=== PATIENT | female | born 2000 | race Caucasian/White ===

== ENCOUNTER 2021-11-21 17:39 | Emergency (ER) | payer BC, MEDICAID, SELFPAY ==
[2021-11-21 17:49] VITALS: BP 119/79; PULSE 79; RESP 16; TEMP 36.3; O2SAT 98; BMI 23.9
--- NOTE | 2021-11-21 18:52 | PC.NURSE ---
Spoke with GIAN [facility]ina cell [phone] and she will be having a local nurse name Elaina come to see pt
--- NOTE | 2021-11-21 21:45 | ED.NURSE ---
SPE[facility] nurse done with assessment. will give medications and d/c home.
[2021-11-21] MEDS: EMTRICITABINE/TENOFOVIR 200-300MG TABLET 1 TAB PO (21:48)
[2021-11-21] MEDS: RALTEGRAVIR POTASSIUM 400 MG TABLET PO (21:48)
[2021-11-21] MEDS: DOXYCYCLINE HYCLATE 100 MG CAPSULE PO (21:48)
[2021-11-21] MEDS: levonorgestreL 1.5 MG TABLET PO (21:48)
[2021-11-21] MEDS: ONDANSETRON ODT 4 MG TAB PO (21:49)
[2021-11-21] MEDS: metroNIDAZOLE 500 MG TABLET PO (21:49)
[2021-11-21 22:07] VITALS: BP 119/79; PULSE 79; RESP 16; TEMP 36.3
[2021-11-21] MEDS: cefTRIAXone 500 MG VIAL IM (22:10)
[2021-11-21] MEDS: LIDOCAINE 1% 5 ml (pf) 5 ML VIAL IM (22:10)
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
== END 2021-11-21 22:12 | disposition home or self-care (01) ==
PROVIDERS: Emergency Provider Family Medicine
DX: T74.21XA Adult sexual abuse, confirmed, initial encounter (principal)
CPT/HCPCS: 96372; 99281; 99284; 99285; 99291; A9270; J0696

== ENCOUNTER 2021-12-08 08:48 | Outpatient (CLI) | payer BC, MEDICAID, SELFPAY ==
--- OUTSIDE RECORDS SUMMARY | 2021-12-12 09:50 | XMS_ITS | Clinical Summary ---
:2000 Author Organization [place] Address [address] [place] [id number] Care Team Providers Name Role Phone Moisés Prater Primary Care Provider [phone] Allergies Active Allergy Reactions Severity Noted [...] from the original. Diagnosis 09/28/15 Follow up [facility] Endocrinology clinic [facility] Social History Tobacco Use Types Packs/Day Years [...] Advance Directives For more information, please contact: [phone] Latest Code Status on File Code Status Date Activated Date Inactivated Comments Full Code 08/16/2020 6:54 AM 08/20/2020 4:47 PM All basic an d advanced life-sustaining interventions are performed as addi ropriate Question Answer Comments Code status determined by: Other (please document) Care Teams Materials Tech Relationship Specialty Start Date End Date Moisés Prater PCP - General Family Practice 08/20/20 [id number] [place] [id number]
--- OUTSIDE RECORDS SUMMARY | 2021-12-12 09:50 | XMS_ITS | Encounter Summary ---
:2000 Author Organization [place] Address [address] [place] [address] Care Team Providers Name Role Phone Moisés Prater Primary Care Provider [phone] Encounter Details Date Type Department Care Team [...] on filedocumented in this encounter Care Teams Recovery Rn Relationship Specialty Start Date End Date Moisés Prater PCP - General Family Practice 08/20/[id number] [place] [address] [id number] documented as of this encounter
--- OUTSIDE RECORDS SUMMARY | 2021-12-12 09:51 | XMS_ITS | Encounter Summary ---
:2000 Author Organization [place] Address [address] [place] [address] Care Team Providers Name Role Phone Unavailable Primary Care Provider Unavailable Encounter Details Date Type Department Care Team Description 08/09/2020 Orders Only [employer] Shana Hernández Encounter for [facility] MD Lindsey preprocedure screening [address] [facility] laboratory testing for [place], [place] COVID-19 ( Primary Dx) [id number] [phone] Social History Tobacco Use Types Packs/Day Years Used Date Smoking Tobacco: Never Assessed Sex Assigned at Date Recorded Not on file documented as of this encounter Plan of Treatment Not on filedocumented as of this encounter Visit Diagnoses Diagnosis Encounter for preprocedure screening lab oratory testing for COVID-19 - Primary documented in this encounter
--- OUTSIDE RECORDS SUMMARY | 2021-12-12 09:51 | XMS_ITS | Clinical Summary ---
:2000 Author Organization [employer] Address [address] [address] Phone Care Team Providers Name Role Phone [...] Comments Blood Pressure 112/76 02/06/2017 10:04 AM MANAGER SUPPLIER Pulse 101 02/06/2017 10:04 AM MANAGER SUPPLIER Temperature 36.9 ??C (98.5 ??F) 02/06/2017 10:04 AM MANAGER SUPPLIER Respiratory Rate 20 02/06/2017 10:04 AM MANAGER SUPPLIER Oxygen Saturation 92% 02/06/2017 10:04 AM MANAGER SUPPLIER Inhaled Oxygen Concentration - - Weight 63.9 kg (140 lb 12.8 oz) 02/06/2017 10:04 AM MANAGER SUPPLIER Height 165.1 cm (5' 5) 02/06/2017 10:04 AM MANAGER SUPPLIER Body Mass Index 23.43 02/06/2017 10:04 AM MANAGER SUPPLIER Plan of Treatment Health Maintenance Due Date [...] Effective Phone Address Type Group ID Dates [facility] [id number] 08/30/2018-Pr [phone] [address] [facility] PRIME esent [phone] [place] [phone] [facility] [id number] 08/30/2018-Pr [phone] [address] [facility] PRIME esent [phone] [facility] [place] [phone] Guarantor Name Account Type Relation to Date of Phone Billing Patient Address TWILA BANKS Personal/Family Mother 1887 [address] ([address]) [place] [address] TWILA BANKS Behavioral Health Mother 10/08/[birth year]87 [phone] [address] [place] [address] Care Teams Older Worker Specialist Relationship Specialty Start Date End Date Elsewhere, Pcp PCP - General 02/06/17
--- OUTSIDE RECORDS SUMMARY | 2021-12-12 09:51 | XMS_ITS | Encounter Summary ---
:2000 Author Organization [place] Address [address] [place] [address] Care Team Providers Name Role Phone Unavailable Primary Care Provider Unavailable Encounter Details Date Type Department Care Team Description 05/26/2007 Office Visit-P INTERFACE P DEPT Jb Bell, PhD [address] [address] (Wo rk) Social History Tobacco Use Types Packs/Day Years Used Date Smoking Tobacco: Never Assessed Sex Assigned at Date Recorded Not on file documented as of this encounter Progress Notes Jb Bell - 05/26/2007 9:00 AM CDT Sales Donor Recruitment Representative: Jb Bell Status: Unsigned Encounter: 26 May 2007 Type: Peds Chart Note PEDIATRIC PSYCHOLOGY CONTACT RECORD RE: Nabila Serna MR#: [id number] : 2000 DOS: 05/26/2007 Clinician: Esther Colindres M.A. Corporate Aircraft Mechanic: Dr. Jb Bell Type of Activity (Total Time Spent in Hours): Report Writinmin Jb Bell - 05/26/2007 9:00 AM CDT Sales Donor Recruitment Representative: Jb Bell Status: Signed Encounter: 26 May [...] a hypothetical continuum of mental health-illness. DIAGNOSES: Washburn I Disruptive Behavior Disorder, Not Otherwise Specified Washburn II none Washburn III Washburn IV learning difficulties, Washburn V GAF current = 45 RECOMMENDATIONS: RECOMMENDATIONS: [...] [facility] It was a pleasure to work with Nabila and her caregivers. If you have any questions or concerns regarding this report, please feel free to contact us at . Jb Bell, Ph.D., Department of Pediatrics Cc: Electronically signed by:JB BELL PhD,MARIO Aug 17 2007 3:25PM OUTSIDE RIGGER Jb Bell - 05/26/2007 9:00 AM CDT Sales Donor Recruitment Representative: Jb Bell Status: Unsigned Encounter: 26 May 2007 Type: Peds Chart Note PEDIATRIC PSYCHOLOGY CONTACT RECORD RE: Nabila Serna MR#: [id number] : 2000 DOS: 05/26/2007 Clinician: Esther Colindres M.A. Corporate Aircraft Mechanic: Dr. Jb Bell Type of Activity [...]
--- OUTSIDE RECORDS SUMMARY | 2021-12-12 09:51 | XMS_ITS | Encounter Summary ---
:2000 Author Organization [employer] Address [address] [address] Phone Care Team Providers Name Role Phone Elsewhere, Pcp Primary Care Provider Unavailable Reason for Visit Reason Comments Immunizations Encounter Details Date Type Department Care Team Description 02/25/2017 Abstract [facility] HIS Abstract, Provider, Immunizations [address] [place], [place] [id number] Social History Tobacco Use Types Packs/Day Years [...] on filedocumented in this encounter Care Teams Foreign Policy Officer Relationship Specialty Start Date End Date Elsewhere, Pcp PCP - General 02/06/17 documented as of this encounter
--- OUTSIDE RECORDS SUMMARY | 2021-12-12 09:51 | XMS_ITS | Encounter Summary ---
:2000 Author Organization [facility] Address [address] [place] [address] Care Team Providers Name Role Phone Plamira Lim MD Primary Care Provider Reason for Visit Reason Comments Forms Encounter Details Date Type Department Care Team Description 08/08/2021 Telephone [facility] [address] MBBS Forms Endocrinology [address] [place] [address] [place], [place] [address] [phone] Social History Tobacco Use Types Packs/Day Years Used Date Smoking Tobacco: Former Cigarettes 0.3 1 Smokeless Tobacco: Never Alcohol Use Standard Drinks/Week Comments Yes 0 (1 standard drink = 0.6 oz pure alcoho l) on ocass Sex Assigned at Date Recorded Female 09/14/2020 7:23 AM CDT documented as of this encounter Nursing Notes Jin Brown - 08/12/2021 3:52 PM CDT Form completed and faxed to [phone] Jin Brown - 08/08/2021 11:00 AM CDT [facility] Order form placed in Dr. Maldonado's mailbox. documented in this encounter Plan of Treatment Not on filedocumented as of this encounter Visit Diagnoses Not on filedocumented in this encounter Care Teams Grinder Gear Relationship Specialty Start Date End Date Palmira Lim MD PCP - General 05/08/[address] [place] [address] documented as of this encounter
--- OUTSIDE RECORDS SUMMARY | 2021-12-12 09:51 | XMS_ITS | Encounter Summary ---
:2000 Author Organization [employer] Address [address] [address] Phone Care Team Providers Name Role Phone Elsewhere, Pcp Primary Care Provider Unavailable Reason for Visit Reason Comments Other port pt Encounter Details Date Type Department Care Team Description 02/06/2017 Office Visit [facility]-Isamar Maddox, En counter for routine PEDIATRICS child health [address] examination with KAYLYN LACY [address] KAYLYN LACY abnormal findings [phone] (Primary Dx) Social History Tobacco Use [...] Comments Blood Pressure 112/76 02/06/2017 10:04 AM EDUCATION TEACHER Pulse 101 02/06/2017 10:04 AM EDUCATION TEACHER Temperature 36.9 ??C (98.5 ??F) 02/06/2017 10:04 AM EDUCATION TEACHER Respiratory Rate 20 02/06/2017 10:04 AM EDUCATION TEACHER Oxygen Saturation 92% 02/06/2017 10:04 AM EDUCATION TEACHER Inhaled Oxygen Concentration - - Weight 63.9 kg (140 lb 12.8 oz) 02/06/2017 10:04 AM EDUCATION TEACHER Height 165.1 cm (5' 5) 02/06/2017 10:04 AM EDUCATION TEACHER Body Mass Index 23.43 02/06/2017 10:04 AM EDUCATION TEACHER Body Mass Index Percentile 73.99 % 02/06/2017 10:04 AM EDUCATION TEACHER Growth Chart: [facility] (Girls, 2-20 Years) documented in this encounter [...] on contacts list): . Next Visit: The [employer] [employer] recommends a routine checkup every year. ATION TEACHER documented in this encounter Progress Notes Isamar [...] List: Diabetes mellitus, insulin dependent (IDDM), uncontrolled (HCC)[756651] Comment: Diagnosed August 2015. No FH of diabetes. Insulin overdose, intentional self-harm, subsequent encounter[5725827] Suicidal behavior[516022] Adjustment disorder with depressed mood[309.0.ICD-9-CM] Parent-child relational problem[874241] ADHD (attention deficit hyperactivity disorder), combined type[289257] Problem list was reviewed and updated as [...] Social Concerns: none, has close friends Activities/interests: [employer]ust[employer] PAST HISTORY: Past Medical History: Diagnosis [...] (Z= 0.76) based on CDC 2-20 Years [id number] data using vitals from 02/06/2017. Height for age: 63 %ile (Z= 0.32) based on CDC 2-20 Years [id number] data using vitals from 02/06/2017. 74 %ile [...] diet pills Recommend adolescent visit every year. ATION TEACHER documented in this encounter Plan of Treatment Not on filedocumented as of this encounter Visit Diagnoses Diagnosis Encounter for routine child health exami nation with abnormal findings - Primary Routine or child health check documented in this encounter Care Teams Packing And Final Assembly Supervisor Relationship Specialty Start Date End Date Elsewhere, Pcp PCP - General 02/06/17 documented as of this encounter
--- OUTSIDE RECORDS SUMMARY | 2021-12-12 09:51 | XMS_ITS | Encounter Summary ---
:2000 Author Organization [facility] Address [address] [place] [address] Care Team Providers Name Role Phone Palmira Lim MD Primary Care Provider Encounter Details Date Type Department Care Team Description 05/14/2021 Notes/Orders [facility] [address] Lilian Maldonado [facility] MKAIN hypothyroidism (Primary [address] [facility] [address] [facility] [place] [place] [id number] Social History Tobacco Use Types Packs/Day Years [...] hypothyroidism documented in this encounter Care Teams Erp Specialist Relationship Specialty Start Date End Date Palmira Lim MD PCP - General 05/08/[address] [place] [address] documented as of this encounter
--- OUTSIDE RECORDS SUMMARY | 2021-12-12 09:51 | XMS_ITS | Encounter Summary ---
:1999 Author Organization [place] Address [address] [place] [address] Care Team Providers Name Role Phone Unavailable Primary Care Provider Unavailable Encounter Details Date Type Department Care Team Description 07/28/2020 Records - [facility] CONVERSION Provider, Histor ical Social History Tobacco [...]
--- OUTSIDE RECORDS SUMMARY | 2021-12-12 09:51 | XMS_ITS | Encounter Summary ---
:1999 Author Organization [employer] Address [address] [place] [address] Care Team Providers Name Role Phone Palmira Lim MD Primary Care Provider Encounter Details Date Type Department Care Team Description 05/13/2021 Lab Visit [facility] 3850 Type 1 di abetes mellitus without complication (HRC); Laboratory Subclinical hypothyroidism [address] [place] [address] Social History Tobacco Use Types [...] athologist Signature Albumin/Creati 19 <30 mg/g 05/13/2021 [facility] nine Ratio, 5:08 PM CDT 3850 LABORATORY Urine, Random Albumin, 23.5 mg/L 05/13/2021 [facility] Urine, Random 5:08 PM CDT 3850 LABORATOR Y Creatinine, 123 >20 mg/dL 05/13/2021 [facility] Urine, Random mg/dL 5:08 PM CDT 3850 LABOR[address] Y Specimen Anatomical Collection Method Collection Time Receive d Time (Source) Location / / Volume Laterality Urine Non-blood 05/13/2021 3:33 PM 3:33 Collection / CDT PM CDT Unknown Lilian Fenton Joel [facility]_1 Performing Organization Address City/[facility]/ZIP Code Phon e Number [facility] [address] [place], [place] [address] [phone] Creatinine / GFR (05/13/2021 3:26 PM CDT) athologist Signature Creatinine 0.73 0.55 - 05/13/2021 [facility] 1.02 mg/dL 5:24 PM CDT 3850 LABORATORY GFR, Estimated >60 >60 05/13/2021 [facility] mL/min/1.7 5:24 PM CDT 3850 LABORATORY 3m2 Specimen Anatomical Collection Method / Collection Time Recei andrade Time (Source) Location / Volume Laterality Blood Venipuncture / 05/13/2021 3:26 05/13/2021 3:26 Unknown PM CDT PM CDT Lilian Victornestor [facility] Performing Organization Address City/[facility]/ZIP Code Phon e Number [facility] [address] [place], [place] [phone] [phone] (ABNORMAL) TSH (05/13/2021 3:26 PM CDT) [facility] gist Method Time Signature TSH, Sensitive 123.73 (H) 0.30 - 05/13/2021 [facility] 4.50 8:00 PM CDT LABORATORY uIU/mL Specimen Anatomical Collection Method / Collection Time Recei andrade Time (Source) Location / Volume Laterality Blood Venipuncture / 05/13/2021 3:26 05/13/2021 3:26 Unknown PM CDT PM CDT Lilian [facility] Performing Organization Address City/State/ZIP Code Phon e Number [facility] [address] [place] [address] documented in this encounter Visit Diagnoses Diagnosis Type 1 diabetes mellitus without complic ation (HRC) Type I (juvenile type) diabetes mellitus without mention of complication, not stated as uncontrolled Subclinical hypothyroidism Other specified acquired hypothyroidism documented in this encounter Care Teams Plug Machine Operator Relationship Specialty Start Date End Date Palmira Lim MD PCP - General 05/08/06 [address], [place] [address] documented as of this encounter
--- OUTSIDE RECORDS SUMMARY | 2021-12-12 09:51 | XMS_ITS | Encounter Summary ---
:1999 Author Organization [employer] Address [address] [place] [address] Care Team Providers Name Role Phone Palmira Lim MD Primary Care Provider Reason for Visit Reason Comments Diabetes Encounter Details Date Type Department Care Team Description 08/07/2021 Office Visit Lilian Jamil Type 1 diab etes mellitus without complication (HRC) (Primary Dx); Endocrinology M, KAIN Subclinical hypothyroidism; [address] Uncontrolled type 1 diabetes mellitus with hyperglycemia (HRC) [place] [address] [address] [phone] [place] [address] Social History Tobacco Use Types [...] Maldonado MBBS - 08/07/2021 3:15 PM CDT [facility] Department of Endocrinology, Diabetes and [...] Restart levothyroxine 50 mcg daily. KAIN Bruce Hearing Stenographer Shaji Villatoro - 08/07/2021 3:15 PM CDT [...] (HRC) documented in this encounter Care Teams Mainframe Analyst Relationship Specialty Start Date End Date Palmira Lim MD PCP - General 05/08/[address] [place] [address] documented as of this encounter
--- OUTSIDE RECORDS SUMMARY | 2021-12-12 09:51 | XMS_ITS | Encounter Summary ---
:1999 Author Organization [employer] Address [address] [address] Phone Care Team Providers Name Role Phone Elsewhere, Pcp Primary Care Provider Unavailable Reason for Visit Reason Comments External Lab Results Encounter Details Date Type Department Care Team Description 02/25/2017 Abstract [facility] HIS Abstract, Provider, External Lab Results [address] [facility] [place] [address] Social History Tobacco Use Types [...] - OUTSIDE 10.00 [facility] Comment: (see [facility] record s scanned 12/16/2016) EXTERNAL RBC 4.81 [...] filedocumented in this encounter Care Teams Director Of Security Relationship Specialty Start Date End Date Elsewhere, Pcp PCP - General 02/06/17 documented as of this encounter
--- OUTSIDE RECORDS SUMMARY | 2021-12-12 09:51 | XMS_ITS | Clinical Summary ---
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 Overview: Hospitalized in [place] in [facility] Conflict at home Has lived in jail Consideration to moving to [facility] = for children with type 1 diabetes [...] 160 cm (5' 3) 03/09/2020 9:45 PM TOOL COORDINATOR Body Mass Index - - Plan of Treatment Upcoming Encounters Date Type Specialty Care Team Description 12/17/2021 Office Visit Tammi Lyon MD [address] [place] [address] (Wo rk) Health Maintenance Due Date Last Done Comments [...] Addre ss Type Group BEBE SPENCE MA [id number] 2020-Present [address] [place] [address] Advance Directives Latest Code Status on File Code Status Date Activated Date Inactivated Comments Full Code 09/27/2020 11:16 PM 09/29/2020 12:44 PM Code Status Discussion: Not Discussed Full Code 03/26/2016 6:32 PM 04/10/2016 8:09 PM Care Teams Shoe Puller Relationship Specialty Start Date End Date Pcp, No PCP - General 07/09/17 .
--- OUTSIDE RECORDS SUMMARY | 2021-12-12 09:51 | XMS_ITS | Encounter Summary ---
:2000 Author Organization [facility] Address [address] [place] [address] Care Team Providers Name Role Phone Moisés Prater Primary Care Provider [phone] Reason for Visit Reason Comments Rule out rupture of membranes Auth/Cert Specialty Diagnoses / Procedures Referred By Contact Refer red To Contact vocational ed instructor Diagnoses Leakage, amniotic fluid Leakage, amniotic fluid Rh [address] [place], [place] [address] Phone: Fax: Referral ID Status Reason Start Date Expiration Date Visits Requ ested Visits Authorized [id number] 1 1 Encounter Details Date Type Department Care Team Description 08/15/2020 - Hospital Encounter [facility] Kasia Mehta MD [place] [address] [place], [place] [address] (spontaneous vaginal delivery) (Prim jean-paul Dx); 08/20/2020 [facility] Renea Bustamante MD [place] [facility] [address] [facility] [address] [place], [place] [id number] Pre-eclampsia, severe, delivered; [address] Bessy Good MD [place] [address] [id number] Anemia due to blood loss, acute; Blvd Type 1 diabetes mellitus wit hout complication (H) [place] [address] Social History Tobacco Use Types [...] Patel DO - 08/19/2020 10:30 AM CDT [facility] Discharge Summary Bessy Serna Age: [age] year old Date of : 2000 Date of Admission: 08/15/2020 Date of Discharge: 08/20/2020 Admitting Physician: Kasia Mehta MD Discharge Physician: Pratibha Patel DO Admit [...] severe features - Large for gestational age infant - Hypothyroidism - [...] delivery of the body at 0801, male infant. Within seconds after delivery, in-house provider Dr. [...] Medications: Daphne Bessy Tin Home Medication Instructions QUAN:[id number] Printed on:08/20/20 1843 Medication Information acetaminophen (TYLENOL) 325 MG tablet [...] documented in this encounter Discharge Instructions Discharge Terri Chau RN - 08/20/2020 2:01 PM CDT Vaginal [...] Mills DO - 08/20/2020 10:43 AM CDT [facility] Hospitalist Progress Note Name: Bessy Serna [...] past 24 hour(s)). Diony Mills DO MPH [facility] Hospitalist [address] [place] [address] 08/20/2020 Pratibha Patel DO - 08/20/2020 7:49 AM CDT [facility] OB Note S: Bessy Serna feels tired this morning. Was able to sleep last night. Pain control adequate. Lochia minimal. Voiding. Breast feeding and pumping for baby in the NICU. Mood Good. BP overnight [id number]. Labetalol was increased to 400mg BID last [...] the afternoon depending on BP control on [id number] BID and procardia XL 90mg daily. 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 08/19/20 Lashay Bowen MD - 08/19/2020 9:03 AM CDT [facility] Hospitalist Progress Note Name: Bessy Serna Provider: [...] pressure is reasonably controlled - care per [facility] Hypertension -Received labetalol, Procardia XL and magnesium [...] Bowen MD - 08/18/2020 3:42 PM CDT [facility] Hospitalist Progress Note Name: Bessy Serna Provider: [...] pressure is reasonably controlled - care per [facility] Hypertension -Received labetalol, Procardia XL and magnesium [...] 4, depending on BPs Mechelle Meehan MD [facility] August 18, 2020 Lashay Bowen MD - 08/17/2020 9:49 AM CDT [facility] Hospitalist Progress Note Name: Bessy Serna Provider: [...] pressure is reasonably controlled - care per [facility] Hypertension -Received labetalol, Procardia XL and magnesium [...] visit (from the past 24 hour(s)). Kasia Mehta MD - 08/17/2020 9:36 AM CDT [facility] QUE[facility]ED[facility] PPD# 1 Pt doing well, states she has visited baby and was told her baby has an arm fracture but overall doing well. Ambulating, voiding, tolerating PO. Decreased lochia. Pain controlled. Breast pumping and coping well with infant when visiting. Vitals: 08/17/20 0320 08/17/20 0526 [...] -Plan; continue routine post- care. Dr. Narda Mehta [phone] 08/17/2020 9:36 AM Bessy Valencia MD - 08/16/2020 8:47 AM CDT Hypothyroid: - 50 mcg daily per Endo (PN on 08/15/2020) T1DM: - Lantus 30 units at bedtime - Novolog 1 unit/5gram carb coverage with meals - High resistant sliding scale Orders above placed, hospitalist consult placed. Bessy Stokes MD Pager: [phone] August 16, 2020, 8:48 AM Kasai Mehta MD - 08/16/2020 6:58 AM CDT [facility] QUE[facility] PROGRESS NOTE S. Pt states she is doing well overall. un medicated and feeling intense pressure and urge to push. +FM BP (!) 153/93 Temp 97.9 ??F (36.6 ??C) (Oral) Resp 18 SpO2 98% [place] ctxs q 4 min FHT 130 bpm, [...] FHT Cat I - anticipate Dr. Narda Mehta [phone] documented in this encounter H&P Notes Bessy Valencia MD - 08/16/2020 6:55 AM CDT [facility] Labor and Delivery History and Physical Bessy [...] hrs: BP Temp Temp src Resp SpO2 08/16/20 0644 (!) 153/93 -- -- 18 98 % [...] (!) 154/90 -- -- -- 96 % 08/16/20 0437 -- -- -- -- 95 % 08/16/20 0434 (!) 176/106 -- -- -- -- 08/16/20 0432 -- -- -- -- 95 % 08/16/20 0422 -- -- -- -- 95 % 08/16/207 (!) 172/89 -- -- -- 95 % 08/16/20411 -- -- -- 16 94 % 08/16/209 -- -- -- -- 94 % 08/16/20 [...] without SF since 34 weeks - S/p labetalol - Currently on Procardia 30 mg [...] - Contraception: IUD Bessy Stokes MD Pager: [phone] August 16, 2020 documented in this encounter Consult Notes Kan Davenport LSW - 08/17/2020 10:20 AM CDTAssociated Order(s): SOCIAL WORK IP CONSULT [facility] MATERNAL CHILD HEALTH INITIAL NICU PSYCHOSOCIAL ASSESSMENT DATA: Reason for Social Work Consult: 36.6 W male in NICU with shoulder dystocia, Primip IDM. Presenting Information: SW met with Bessy who is partnered to Ty, they reside together in [place] with Ty's brother, sister and her SO and their baby. Janusz is their first child together and they are prepared for him at home and plan to apply for WIC. Bessy declines PHN referral at this time. Social Support: Strong supports. Bessy's mother lives 10 minutes away and Ty's mother is visiting from [place] Employment: Bessy will take 3 months off work and is uncertain if she will return or not. Ty has 2weeks off work. [place]: [place] Mental Health History: Bessy scored Zero on [...] a CPS report will be made to [facility]. INTERVENTION: ?? MONIKA completed chart review and collaborated with the multidisciplinary team. ?? Psychosocial Assessment ?? Introduction to Maternal Child Health Director Of Cardiac Cath Lab role and scope of practice ?? Discussed NICU experience and gave NICU welcome card ?? Reviewed Hospital and Community Resources ?? SW gave list of [facility] resources, how to apply for WIC [...] to access services. Bessy was unaware of [facility] for [facility] etc. Assessment of Support System: Stable and involved. Level of engagement with SW: Engaged and appropriate. Able to seek out SW when needs arise. Family???s understanding of baby???s medical situation: Appropriate understanding, he has a broken arm and working on sugars. Family and parent/ interactions: FOB sleeping at bedside, baby will [...] team. Signature Kan VILLARREAL Case Management Inpatient Director Of Cardiac Cath Lab Maternal Child and ED [facility] [phone] Lashay Bowen MD - 08/16/2020 3:05 PM [...] pressure is reasonably controlled - care per [facility] Diabetes mellitus type 1 -Insulin coverage during [...] ??C), temperature source Oral, resp. rate 16, ukzaue484.1 kg (225 lb), SpO2 98 %, unknown [...] hours overnight. Plan of Care - Alberta Lino, ANDRE - 08/19/2020 4:30 PM CDT BP elevated [...] this am 144/80 and 150/89, seen by MD and Labetalol increased to 300mg BID. Denies [...] infant. SO atbedside and supportive. Pumping for in the NICU. Pt to call out [...] she will order breakfast soon. Plan of Care - Christelle Mckeon RN - 08/18/2020 5:08 [...] delivery and immediately assumed cares of the infant. Baby transferred to NICU with fransico team [...] in 1 hour. Bessy Serna transferred to [facility] via wheelchair at 1030. Bessy stated [...] and is stable. L&D Delivery Note - Kimberly, Bessy Alcantara MD - 08/16/2020 8:59 AM CDT Bessy [...] delivery of the body at 0801, male infant. Within seconds after delivery, in-house providerDr. Goodwin arrived. The cord was immediately clamped and the was brought to the warmer forNICU resuscitation. [...] standard fashion using a 3-0 Vicryl suture. [id number]. Rectal exam at the end of the procedure did not reveal any sutures, good rectal tone. Of note, the patient was made aware of the shoulder dystocia, severity and likely humerus fracture. She was also made aware of likely follow-up. Bessy Stokes MD Pager: [phone] August 16, 2020, 9:01 AM Delivery Summary Bessy Serna Age: [age] year old Date of : 2000 Con Serna-Bessy [[id number]] Labor Event Times Labor onset date: 08/16/20 [...] Pattern 1:1 continuous labor support provided by?: shooter helper/Placenta Date and Time Delivery Date: 08/16/20 Delivery Time: 8:01 AM Placenta Date/Time: 08/16/2020 8:10 AM Oxytocin given at the time of delivery: after delivery of placenta Delivering clinician: Bessy Valencia MD Other personnel present at delivery: Provider Role Lizbeth Avila, shooter helper Assist Mis Ndiaye RN Delivery Nurse Sonja Winston RN Delivery Assist Vaginal Counts Initial count performed by 2 team members: Two Team Members Dr. Kimberly Martins RN [place] Suture [place] Sponges (RETIRED) Instruments Initial counts 2 5 [...] tone: Respiratory effort: Total: Apgars assigned by: JOSELIN RN ADMIT Cord Vessels: 3 Vessels Cord Complications: None Cord Blood Disposition: Lab Delayed cord clamping?: No Stem cell collection?: No [place] Measurements Weight: 9 lb 11.2 oz Head circumference: 34 cm Labor Events and Shoulder Dystocia Tracing Prior to Delivery: Category 2 Shoulder dystocia present?: Pos Time body delivered: 0801 Time head delivered: 0759 Help called by: Bessy Stokes Time recognized: [...] Bessy Stokes Delivery (Maternal) (Provider to Complete) ([id number]) Episiotomy: None Perineal lacerations: 2nd Repaired?: Yes Vaginal laceration?: Yes Repaired?: Yes Est. blood loss (mL): 500 Repair suture: 3-0 Vicryl, 2-0 Vicryl Genital tract inspection done: Pos Blood Loss Mother: DaphneBessy gomez #[id number] Start of Mother's Information IO Blood Loss 08/16/20 0330 - 08/16/20 0901 EBL (mL) Hospital Encounter 500 mL Total 500 mL End of Mother's Information Mother: Bessy Serna #[id number] Delivery - Provider to Complete ([id number]) Delivering clinician: Bessy Valencia MD Attempted Delivery [...] 08/16/20 0650 Provider Notification Provider Name/Title Dr. mehta Method of Notification At Bedside Request Evaluate in Person Notification Reason SVE MD at bedside. SVE 10. Pt may begin pushing. Verbal orders received for Pitocin augmentation as contractions have spaced. Provider Notification - Michelle Monae RN - 08/16/2020 6:25 AM CDT 08/16/20 0625 Provider Notification Provider Name/Title Dr. Mehta Method of Notification Phone Request Evaluate in Person MD updated. SVE 9.5/100/2, Pt pushing involuntarily. RN requesting MD come to the hospital for delivery. Provider Notification - Michelle Monae RN - 08/16/2020 6:07 AM CDT 08/16/20 0607 Provider Notification Provider Name/Title Dr. Mehta Method of Notification Phone Request Evaluate - Remote Notification Reason Maternal Vital Sign Change MD updated. Two severe range BPs obtained, Pt received Procardia at 0543. MD states to proceed with 80 mg Labetalol. Provider Notification - Lindsey Valle RN - 08/16/2020 5:55 AM CDT 08/16/20 0555 Provider Notification Provider Name/Title Dr. Mehta Method of Notification Phone Request Evaluate in [...] she is 10 minutes away. Updated primary ANDRE Monae. Provider Notification - Michelle Monae RN - 08/16/2020 5:27 AM CDT 08/16/20 0527 Provider Notification Provider Name/Title Dr. Mehta Method of Notification Electronic Page Request Evaluate - Remote Notification Reason SVE;Status Update Text page sent to MD. SVE 7/90/0. BG 115, starting IV insulin per active labor protocol. BP stable. Provider Notification - Michelle Monae RN - 08/16/2020 4:24 AM CDT 08/16/20 0424 Provider Notification Provider Name/Title Dr. Mehta Method of Notification Phone Request Evaluate - [...] 08/16/20 0219 Provider Notification Provider Name/Title Dr. Mehta Method of Notification Phone Request Evaluate - Remote Notification Reason Maternal Vital Sign Change;Status Update updated. Severe range BP x2 treated with [...] 08/16/20 0019 Provider Notification Provider Name/Title Dr. Mehta Method of Notification Phone Request Evaluate - Remote Notification Reason Maternal Vital Sign Change updated due to severe range BP, 177/104. [...] and fluid noted- ROM plus sent. Dr. Mehta updated at 2114 and Intrapartum and Diabetic [...] 8:23 AM 4:04 CDT PM CDT Kasia Mehta MD LAB - BEAKER POCT Performing Organization Address City/State/ZIP Code Phon e Number FV POINT OF CARE TEST, GLUCOSE POINT OF CARE TEST, GLUCOSE Platelet count (08/20/2020 7:06 AM CDT) athologist Signature Platelet Count 357 150 - 450 08/20/2020 [place] 10e9/L 7:50 AM [facility] Specimen Anatomical Collection Method Collection Time Receive d Time (Source) Location / / Volume Laterality Blood 08/20/2020 7:06 AM 7:07 CDT AM CDT Shana Hernández MD LAB - BLOOD ORDERABLES Performing Organization Address City/[facility] Phon e Number [place] [address] [phone] Creatinine (08/20/2020 7:06 AM CDT) athologist Signature Creatinine 0.63 0.52 - 1.04 08/20/2020 [place] mg/dL 8:13 AM [facility] GFR Estimate >90 >60 08/20/2020 [place] mL/min/{1.7 8:13 AM [facility] 3_m2} [facility] Comment: Non GFR Calc Starting 02/16/2018, serum creatinine ba sed estimated GFR (eGFR) will be calculated using the Chronic Kidney Dise [facility] Epidemiology Collaboration (CKD-EPI) equation. GFR Estimate If >90 >60 mL/min/{1.73_m2} 08/20/2020 8: 13 AM [facility] Comment: GFR Calc Starting 02/16/2018, serum creatinine ba sed estimated GFR (eGFR) will be calculated using the Chronic Kidney Dise [facility] Epidemiology Collaboration (CKD-EPI) equation. Specimen Anatomical Collection Method Collection Time Receive d Time (Source) Location / / Volume Laterality Blood 08/20/2020 7:06 AM 7:07 CDT AM CDT Shana Hernández MD LAB - BLOOD ORDERABLES Performing Organization Address City/State/ZIP Code Phon e Jemma [facility] [address], [place] [address] [facility] [address] [place], [place] [address], [facility] [phone] AST (08/20/2020 7:06 AM CDT) P athologist Signature AST 44 0 - 45 U/L 08/20/2020 [facility] 8:13 AM CDT HOSPITAL Specimen Anatomical Collection Method Collection Time Receive d Time (Source) Location / / Volume Laterality Blood 08/20/2020 7:06 AM 7:07 CDT AM CDT Shana Hernández MD LAB - BLOOD ORDERABLES Performing Organization Address [facility] Code [facility] e Jemma [facility] [address], [place] [address] [facility] [address] [place], [place] [address], [facility] [phone] ALT (08/20/2020 7:06 AM CDT) athologist Signature ALT 33 0 - 50 U/L 08/20/2020 [facility] 8:13 AM CDT HOSPITAL Specimen Anatomical Collection Method Collection Time Receive d Time (Source) Location / / Volume Laterality Blood 08/20/2020 7:06 AM 7:07 CDT AM CDT Shana Hernández MD LAB - BLOOD ORDERABLES Performing Organization Address City/[facility]/ZIP Code Phon e [facility] [address], [place] [address] [facility] [address] [place], [place] [address], [facility] [phone] Glucose by meter (08/20/2020 2:04 AM CDT) P athologist Signature Glucose 84 70 - 99 08/20/2020 POINT OF CARE mg/dL 2:11 AM CDT TEST, GLUCOSE Specimen Anatomical Collection Method Collection Time Receive d Time (Source) Location / / Volume Laterality 08/20/2020 2:04 AM 1 2:11 CDT AM CDT Kasia Mehta MD LAB - NGUYỄN POCT Performing Organization Address [facility] Code Phon e Number FV POINT OF [...] 08/19/2020 PM CDT 10:07 PM CDT Kasia Mehta MD LAB - NGUYỄN POCT Performing Organization Address [facility] Phon e Number FV POINT OF [...] IRIZARRY - NGUYỄN POCT Performing Organization Address [facility] Code Phon e Number FV POINT OF [...] PM 1 2:12 CDT PM CDT Kasia IRIZARRY - BEAKER POCT Performing Organization Address City/State/ZIP [...] 9:35 AM 9:42 CDT AM CDT Kasia Mehta MD LAB - [facility] POCT Performing Organization Address City/State/ZIP Code Phon e Number FV POINT OF CARE TEST, GLUCOSE POINT OF CARE TEST, GLUCOSE (ABNORMAL) CBC with platelets (08/19/2020 7:02 AM CDT) Analysis Performed At Patho logist Time Signature WBC 12.7 (H) 4.0 - 11.0 08/19/2020 [facility] 10e9/L 7:11 AM [facility] RBC Count 3.20 (L) 3.8 - 5.2 08/19/2020 [facility] 10e12/L 7:11 AM [facility] Hemoglobin 8.4 (L) 11.7 - 08/19/2020 [facility] 15.7 g/dL 7:11 AM [facility] Hematocrit 26.7 (L) 35.0 - 08/19/2020 [facility] 47.0 % 7:11 AM [facility] MCV 83 78 - 100 08/19/2020 [facility] fl 7:11 AM [facility] MCH 26.3 (L) 26.5 - 08/19/2020 [facility] 33.0 pg 7:11 AM [facility] MCHC 31.5 31.5 - 08/19/2020 [facility] 36.5 g/dL 7:11 AM [facility] RDW 16.1 (H) 10.0 - 08/19/2020 [facility] 15.0 % 7:11 AM [facility] Platelet Count 275 150 - 450 08/19/2020 [facility] 10e9/L 7:11 AM [facility] Specimen Anatomical Collection Method Collection Time Receive d Time (Source) Location / / Volume Laterality Blood 08/19/2020 7:02 AM 1 7:03 CDT AM CDT Lashay Bowen MD LAB - BLOOD ORDERABLES Performing Organization Address City/State/ZIP Code Phon e Number M [facility] [address], [place] [address] [facility] [address] [place], [place] [address] [phone] (ABNORMAL) Glucose by meter (08/19/2020 2:01 AM CDT) P athologist Signature Glucose 197 (H) 70 - 99 08/19/2020 POINT OF CARE mg/dL 2:07 AM CDT TEST, GLUCOSE Comment: Dr/RN Notified Specimen Anatomical Collection Method Collection Time Receive d Time (Source) Location / / Volume Laterality 08/19/2020 2:01 AM 1 2:07 CDT AM CDT Kasia IRIZARRY - [employer] POCT Performing Organization Address City/[facility]/ZIP Code Phon e Number FV POINT OF [...] 9:55 PM CDT 10:01 PM CDT Kasia Mehta MD LAB - BEMELISSA POCT Performing Organization [...] PM 1 6:49 CDT PM CDT Kasia Mehta MD LAB - BEMELISSA POCT Performing Organization Address City/[facility]/ZIP Code Phon e Number FV POINT OF [...] 08/18/2020 PM CDT 12:53 PM CDT Kasia IRIZARRY - NGUYỄN POCT Performing Organization Address [facility] Phon e Number FV POINT OF [...] IRIZARRY - NGUYỄN POCT Performing Organization Address [facility] Phon e Number FV POINT OF CARE TEST, GLUCOSE POINT OF CARE TEST, GLUCOSE (ABNORMAL) CBC with platelets (08/18/2020 6:44 AM CDT) Analysis Performed At Patho logist Time Signature WBC 16.0 (H) 4.0 - 11.0 08/18/2020 [facility] 10e9/L 7:08 AM T [facility] RBC Count 3.25 (L) 3.8 - 5.2 08/18/2020 [facility] 10e12/L 7:08 AM T [facility] Hemoglobin 8.6 (L) 11.7 - 08/18/2020 [facility] 15.7 g/dL 7:08 AM [facility] Hematocrit 27.1 (L) 35.0 - 08/18/2020 [facility] 47.0 % 7:08 AM [facility] MCV 83 78 - 100 08/18/2020 [place] fl 7:08 AM [facility] MCH 26.5 26.5 - 08/18/2020 [facility] 33.0 pg 7:08 AM [facility] MCHC 31.7 31.5 - 08/18/2020 [facility] 36.5 g/dL 7:08 AM [facility] RDW 15.9 (H) 10.0 - 08/18/2020 [facility] 15.0 % 7:08 AM [facility] Platelet Count 266 150 - 450 08/18/2020 [facility] 10e9/L 7:08 AM [facility] Specimen Anatomical Collection Method Collection Time Receive d Time (Source) Location / / Volume Laterality Blood 08/18/2020 6:44 AM 1 6:45 CDT AM CDT Lashay Bowen MD LAB - BLOOD ORDERABLES Performing Organization Address City/State/ZIP Code Phon e Number M [facility] [address] [place] [address] [facility] [address] [phone] (ABNORMAL) Glucose by meter (08/18/2020 2:12 AM CDT) athologist Signature Glucose 35 (LL) 70 - 99 08/18/2020 POINT OF CARE mg/dL 2:19 AM CDT TEST, GLUCOSE Comment: Dr/RN Notified Specimen Anatomical Collection Method Collection Time Receive d Time (Source) Location / / Volume Laterality 08/18/2020 2:12 AM 1 2:19 CDT AM CDT Kasia Mehta MD LAB - BEAKER POCT Performing Organization Address City/State/ZIP Code Phon e Number FV POINT OF CARE TEST, GLUCOSE POINT OF CARE TEST, GLUCOSE (ABNORMAL) Glucose by meter (08/17/2020 10:03 PM CDT) P athologist Signature Glucose 101 (H) 70 - 99 08/17/2020 POINT OF CARE mg/dL 10:10 PM CDT TEST, GLUCOSE Specimen Anatomical Collection Method Collection Time Receive d Time (Source) Location / / Volume Laterality 08/17/2020 10:03 08/17/2020 PM CDT 10:10 PM CDT Kasia Mehta MD LAB - BEMELISSA POCT Performing Organization Address City/State/ZIP Code Phon e Number FV POINT OF CARE TEST, GLUCOSE POINT OF CARE TEST, GLUCOSE (ABNORMAL) Glucose by meter (08/17/2020 6:55 PM CDT) P athologist Signature Glucose 137 (H) 70 - 99 08/17/2020 POINT OF CARE mg/dL 7:02 PM CDT TEST, GLUCOSE Specimen Anatomical Collection Method Collection Time Receive d Time (Source) Location / / Volume Laterality 08/17/2020 6:55 PM 7:02 CDT PM CDT Kasia Mehta MD LAB - BEMELISSA POCT Performing Organization Address City/[facility]/ZIP Code Phon e Number FV POINT OF CARE TEST, GLUCOSE POINT OF CARE TEST, GLUCOSE (ABNORMAL) Glucose by meter (08/17/2020 1:38 PM CDT) P athologist Signature Glucose 107 (H) 70 - 99 08/17/2020 POINT OF CARE mg/dL 1:45 PM CDT TEST, GLUCOSE Specimen Anatomical Collection Method Collection Time Receive d Time (Source) Location / / Volume Laterality 08/17/2020 1:38 PM 1 1:45 CDT PM CDT Kasia Mehta MD LAB - BEMELISSA POCT Performing Organization Address City/State/ZIP Code Phon e Number FV POINT OF CARE TEST, GLUCOSE POINT OF CARE TEST, GLUCOSE Glucose by meter (08/17/2020 1:03 PM CDT) P athologist Signature Glucose 85 70 - 99 08/17/2020 POINT OF CARE mg/dL 1:09 PM CDT TEST, GLUCOSE Specimen Anatomical Collection Method Collection Time Receive d Time (Source) Location / / Volume Laterality 08/17/2020 1:03 PM 1 1:09 CDT PM CDT Kasia Mehta MD LAB - BEAKER POCT Performing Organization [...] 08/17/2020 PM CDT 12:54 PM CDT Kasia Mehta MD LAB - BEAKER POCT Performing Organization Address City/[facility]/ZIP Code Phon e Number FV POINT OF [...] 08/17/2020 PM CDT 12:29 PM CDT Kasia Mehta MD LAB - BEAKER POCT Performing Organization Address City/[facility]/ZIP Code Phon e Number FV POINT OF CARE TEST, GLUCOSE POINT OF CARE TEST, GLUCOSE (ABNORMAL) Magnesium (08/17/2020 8:01 AM CDT) P athologist Signature Magnesium 5.8 (H) 1.6 - 2.3 08/17/2020 [place] mg/dL 8:[address] [facility] Specimen Anatomical Collection Method Collection Time Receive d Time (Source) Location / / Volume Laterality Blood 08/17/2020 8:01 AM 8:02 CDT AM CDT Bessy Valencia MD LAB - BLOOD ORDERABLES Performing Organization Address City/State/ZIP Code Phon e Number [facility] [address] [address] [phone] [facility] [address] [address], [place] [phone] (ABNORMAL) CBC with platelets (08/17/2020 8:01 AM CDT) Analysis Performed At Patho logist Time Signature WBC 19.5 (H) 4.0 - 11.0 08/17/2020 [facility] 10e9/L 8:21 AM [facility] RBC Count 3.41 (L) 3.8 - 5.2 08/17/2020 [facility] 10e12/L 8:21 AM [facility] Hemoglobin 9.0 (L) 11.7 - 08/17/2020 [facility] 15.7 g/dL 8:21 AM [facility] Hematocrit 27.8 (L) 35.0 - 08/17/2020 [facility] 47.0 % 8:21 AM [facility] MCV 82 78 - 100 08/17/2020 [facility] fl 8:21 AM [facility] MCH 26.4 (L) 26.5 - 08/17/2020 [facility] 33.0 pg 8:21 AM [facility] MCHC 32.4 31.5 - 08/17/2020 [facility] 36.5 g/dL 8:21 AM [facility] RDW 15.9 (H) 10.0 - 08/17/2020 [facility] 15.0 % 8:21 AM [facility] Platelet Count 242 150 - 450 08/17/2020 [facility] 10e9/L 8:21 AM [facility] Specimen Anatomical Collection Method Collection Time Receive d Time (Source) Location / / Volume Laterality Blood 08/17/2020 8:01 AM 8:02 CDT AM CDT Bessy Valencia MD LAB - BLOOD ORDERABLES Performing Organization Address City/State/ZIP Code Phon e Number M [facility] [address], [place] [address] [facility] [address] [place], [place] [address] [phone] Creatinine (08/17/2020 8:01 AM CDT) athologist Signature Creatinine 0.83 0.52 - 1.04 08/17/2020 [place] mg/dL 8:41 AM [facility] GFR Estimate >90 >60 08/17/2020 [place] mL/min/{1.7 8:41 AM [facility] 3_m2} HOSPITAL Comment: Non GFR Calc Starting 02/16/2018, serum creatinine ba sed estimated GFR (eGFR) will be calculated using the Chronic Kidney Dise [facility] Epidemiology Collaboration (CKD-EPI) equation. GFR Estimate If >90 >60 mL/min/{1.73_m2} 08/17/2020 8: 41 AM [facility] Comment: GFR Calc Starting 02/16/2018, serum creatinine ba sed estimated GFR (eGFR) will be calculated using the Chronic Kidney Dise [facility] Epidemiology Collaboration (CKD-EPI) equation. Specimen Anatomical Collection Method Collection Time Receive d Time (Source) Location / / Volume Laterality Blood 08/17/2020 8:01 AM 8:02 CDT AM CDT Bessy Valencia MD LAB - BLOOD ORDERABLES Performing Organization Address City/State/ZIP Code Phon e Number M [facility] [address], [place] [address] [facility] [address] [place], [place] [address] [phone] ALT (08/17/2020 8:01 AM CDT) athologist Signature ALT 14 0 - 50 U/L 08/17/2020 [place] 8:42 AM [facility] Specimen Anatomical Collection Method Collection Time Receive d Time (Source) Location / / Volume Laterality Blood 08/17/2020 8:01 AM 8:02 CDT AM CDT Bessy Valencia MD LAB - BLOOD ORDERABLES Performing Organization Address City/State/ZIP Code Phon e Number M [facility] [address] [address] [facility] [address] [place], [place] [address], [place] [phone] AST (08/17/2020 8:01 AM CDT) athologist Signature AST 31 0 - 45 U/L 08/17/2020 [place] 8:[address] [facility] Specimen Anatomical Collection Method Collection Time Receive d Time (Source) Location / / Volume Laterality Blood 08/17/2020 8:01 AM 8:02 CDT AM CDT Bessy Valencia MD LAB - BLOOD ORDERABLES Performing Organization Address City/State/ZIP Code Phon e Number M [facility] [address], [place] [address] [place] [address] [place] [place], [place] [address], [place] [phone] Glucose by meter (08/17/2020 7:49 AM CDT) athologist Signature Glucose 89 70 - 99 08/17/2020 PO[facility] CARE mg/dL 8:01 AM CDT TEST, GLUCOSE Specimen Anatomical Collection Method Collection Time Receive d Time (Source) Location / / Volume Laterality 08/17/2020 7:49 AM 8:01 CDT AM CDT Kasia IRIZARRY - NGUYỄN POCT Performing Organization Address City/[facility]/ZIP Code Phon e Number FV POINT OF [...] CDT 10:38 PM CDT Kasia IRIZARRY - NGUYỄN POCT [...] PM 1 6:17 CDT PM CDT Kasia Mehta MD LAB - BEAKER POCT Performing Organization Address City/[facility]/ZIP Code Phon e Number FV POINT OF [...] PM 1 4:49 CDT PM CDT Kasia Mehta MD LAB - BEAKER POCT Performing Organization Address [facility]/ZIP Code Phon e Number FV POINT OF CARE TEST, GLUCOSE POINT OF CARE TEST, GLUCOSE (ABNORMAL) Hemoglobin A1c (08/16/2020 12:36 PM CDT) athologist Signature Hemoglobin A1C 6.2 (H) 0 - 5.6 % 08/16/2020 [place] 1:[address] [facility] Comment: Normal <5.7% Prediabetes 5.7-6.4% ??Diab etes 6.5% or higher - adopted from ADA consensus guidelines. Specimen Anatomical Collection Method Collection Time Receive d Time (Source) Location / / Volume Laterality Blood 08/16/2020 12:36 08/16/2020 PM CDT 12:37 PM CDT Lashay Bowen MD LAB - BLOOD ORDERABLES Performing Organization Address City/[facility]/ZIP Code Phon e Number [facility] [address] [address] [place] [address] [address] [address], [place] [phone] (ABNORMAL) Magnesium (08/16/2020 12:36 PM CDT) athologist Signature Magnesium 6.5 (H) 1.6 - 2.3 08/16/2020 [place] mg/dL 1:10 PM [facility] Specimen Anatomical Collection Method Collection Time Receive d Time (Source) Location / / Volume Laterality Blood 08/16/2020 12:36 08/16/2020 PM CDT 12:37 PM CDT Bessy Valencia MD LAB - BLOOD ORDERABLES Performing Organization Address City/State/ZIP Code Phon e Number M [place] [address] [address] [address] [place] [address] [address] [address], [place] [phone] Creatinine (08/16/2020 12:36 PM CDT) athologist Signature Creatinine 0.96 0.52 - 1.04 08/16/2020 [place] mg/dL 1:10 PM [facility] GFR Estimate 84 >60 08/16/2020 [place] mL/min/{1.7 1:10 PM [facility] 3_m2} [facility] Comment: Non GFR Calc Starting 02/16/2018, serum creatinine ba sed estimated GFR (eGFR) will be calculated using the Chronic Kidney Dise [facility] Epidemiology Collaboration (CKD-EPI) equation. GFR Estimate If >90 >60 mL/min/{1.73_m2} 08/16/2020 1: 10 PM [facility] Comment: GFR Calc Starting 02/16/2018, serum creatinine ba sed estimated GFR (eGFR) will be calculated using the Chronic Kidney Dise [facility] Epidemiology Collaboration (CKD-EPI) equation. Specimen Anatomical Collection Method Collection Time Receive d Time (Source) Location / / Volume Laterality Blood 08/16/2020 12:36 08/16/2020 PM CDT 12:37 PM CDT Bessy Valencia MD LAB - BLOOD ORDERABLES Performing Organization Address City/State/ZIP Code Phon e Number M [facility] [address] [address] [phone] [facility] [address] [address], [place] [phone] (ABNORMAL) CBC with platelets (08/16/2020 12:36 PM CDT) Analysis Performed At Patho logist Time Signature WBC 28.1 (H) 4.0 - 11.0 08/16/2020 [facility] 10[facility]9/L 12:52 PM [facility] RBC Count 4.00 3.8 - 5.2 08/16/2020 [facility] 10e12/L 12:52 PM [facility] Hemoglobin 10.4 (L) 11.7 - 08/16/2020 [facility] 15.7 g/dL 12:52 PM [facility] Hematocrit 32.2 (L) 35.0 - 08/16/2020 [facility] 47.0 % 12:52 PM [facility] MCV 81 78 - 100 08/16/2020 [facility] fl 12:52 PM [facility] MCH 26.0 (L) 26.5 - 08/16/2020 [facility] 33.0 pg 12:52 PM [facility] MCHC 32.3 31.5 - 08/16/2020 [facility] 36.5 g/dL 12:52 PM [facility] RDW 15.2 (H) 10.0 - 08/16/2020 [facility] 15.0 % 12:52 PM [facility] Platelet Count 227 150 - 450 08/16/2020 [facility] 10[facility]9/L 12:52 PM [facility] Specimen Anatomical Collection Method Collection Time Receive d Time (Source) Location / / Volume Laterality Blood 08/16/2020 12:36 08/16/2020 PM CDT 12:37 PM CDT Bessy Valencia MD LAB - BLOOD ORDERABLES Performing Organization Address City/State/ZIP Code Phon e Number M [facility] [address] [place], [place] [address] [facility] [address] [place], [place] [address] [phone] ALT (08/16/2020 12:36 PM CDT) athologist Signature ALT 12 0 - 50 U/L 08/16/2020 [place] 1:[address] [facility] Specimen Anatomical Collection Method Collection Time Receive d Time (Source) Location / / Volume Laterality Blood 08/16/2020 12:36 08/16/2020 PM CDT 12:37 PM CDT Bessy Valencia MD LAB - BLOOD ORDERABLES Performing Organization Address City/State/ZIP Code Phon e Number M [facility] [address] [address] [phone] [facility] [address] [address], [place] [phone] AST (08/16/2020 12:36 PM CDT) athologist Signature AST 35 0 - 45 U/L 08/16/2020 [place] 1:[address] [facility] Specimen Anatomical Collection Method Collection Time Receive d Time (Source) Location / / Volume Laterality Blood 08/16/2020 12:36 08/16/2020 PM CDT 12:37 PM CDT Bessy Valencia MD LAB - BLOOD ORDERABLES Performing Organization Address City/State/ZIP Code Phon e Number M [facility] [address] [address] [phone] [facility] [address] [address], [place] [phone] (ABNORMAL) Glucose by meter (08/16/2020 11:33 AM CDT) athologist Signature Glucose 106 (H) 70 - 99 08/16/2020 POINT OF CARE mg/dL 11:40 AM CDT TEST, GLUCOSE Specimen Anatomical Collection Method Collection Time Receive d Time (Source) Location / / Volume Laterality 08/16/2020 11:33 08/16/2020 AM CDT 11:40 AM CDT Kasia Mehta MD LAB - BEAKER POCT Performing Organization Address City/[facility]/ZIP Code Phon e Number FV POINT OF [...] 9:50 AM 9:57 CDT AM CDT Kasia Mehta MD LAB - BEMELISSA POCT Performing Organization Address City/[facility]/ZIP Code Phon e Number FV POINT OF [...] 8:56 AM 9:51 CDT AM CDT Kasia Mehta MD LAB - BEMELISSA POCT Performing Organization Address [facility]/ZIP Code Phon e Number FV POINT OF CARE TEST, GLUCOSE POINT OF CARE TEST, GLUCOSE Placenta Path Order and Indications (PLACENTA) (08/16/2020 8:01 AM CDT) Component Value Ref Test Analysis Performed At Patholo gist Range Method Time Signature Copath Report Patient Name: BESSY SERNA MR#: [id number] Specimen #: [id number] Collected: 08/16/2020 Received: 08/16/2020 Reported: 08/20/2020 10:10 [...] full thickness placenta parenchyma (Dictated by: CHANTAL Gallegos([facility]) 08/16/2020 10:58 AM) MICROSCOPIC: Microscopic examination is performed. The technical component of this testing was completed at the [facility], with the professional compo nent performed at the [facility], [address] [place] [phone] ([phone]) CPT Codes: A: 62873-NF3 COLLECTION SITE: Client: [facility] Location: RHOB (R) Specimen Anatomical Collection Method Collection Time Receive d Time (Source) Location / / Volume Laterality Placenta 08/16/2020 8:01 AM 9:09 CDT AM CDT Bessy IRIZARRY - NGUYỄN AP Performing Organization Address City/State/ZIP Code Phon [...] Glucose by meter (08/16/2020 6:39 AM CDT) athologist Signature Glucose 117 (H) 70 - 99 08/16/2020 POINT [facility] CARE mg/dL 6:46 AM CDT TEST, GLUCOSE Specimen Anatomical Collection Method Collection Time Receive d Time (Source) Location / / Volume Laterality 08/16/2020 6:39 AM 1 6:46 CDT AM CDT Kasia IRIZARRY - NGUYỄN POCT Performing Organization Address City/[facility]/ZIP Code Phon e Number FV POINT OF CARE TEST, GLUCOSE POINT OF CARE TEST, GLUCOSE (ABNORMAL) Glucose by meter (08/16/2020 5:37 AM CDT) athologist Signature Glucose 114 (H) 70 - 99 08/16/2020 PO[facility] CARE mg/dL 5:44 AM CDT TEST, GLUCOSE Specimen Anatomical Collection Method Collection Time Receive d Time (Source) Location / / Volume Laterality 08/16/2020 5:37 AM 1 5:44 CDT AM CDT Kasia IRIZARRY - BEMELISSA [...] AM 1 5:09 CDT AM CDT Kasia Mehta MD LAB - C4X Discovery POCT Performing Organization Address City/State/ZIP Code Phon e Number FV POINT OF CARE TEST, GLUCOSE POINT OF CARE TEST, GLUCOSE (ABNORMAL) Glucose by meter (08/16/2020 4:09 AM CDT) athologist Signature Glucose 114 (H) 70 - 99 08/16/2020 POINT [facility] CARE mg/dL 4:15 AM CDT TEST, GLUCOSE Specimen Anatomical Collection Method Collection Time Receive d Time (Source) Location / / Volume Laterality 08/16/2020 4:09 AM 1 4:15 CDT AM CDT Kasia IRIZARRY - C4[facility] Discovery POCT Performing Organization Address City/[facility] Phon e Number FV POINT OF CARE TEST, GLUCOSE POINT OF CARE TEST, GLUCOSE Drug Screen Urine /[place] (08/16/2020 3:40 AM CDT) [facility] Method Time Signature Amphetamine Qual Negative NEG^Negati 08/16/2020 [place] Urine ve 6:24 AM [facility] Comment: Cutoff for a negative amphetami ne is 500 ng/mL or less. Cannabinoids Qual Negative NEG^Negative 08/16/2020 6:24 AM [facility] Urine [facility] Comment: Cutoff for a negative cannabino id is 50 ng/mL or less. Cocaine Qual Urine Negative NEG^Negative 08/16/2020 6:23 AM [facility] Comment: Cutoff for a negative cocaine i s 300 ng/mL or less. Opiates Qualitative Negative NEG^Negative 08/16/2020 6:24 A [facility] Comment: Cutoff for a negative opiate is 300 ng/mL or less. Pcp Qual Urine Negative NEG^Negative 08/16/2020 6:24 AM [facility] Comment: Cutoff for a negative PCP is 25 ng/mL or less. Specimen Anatomical Collection Method Collection Time Receive d Time (Source) Location / / Volume Laterality Urine URINE SPECIMEN / 08/16/2020 3:40 AM 08/16 5:58 Unknown CDT AM CDT Kasia Mehta MD LAB - URINE ORDERABLES Performing Organization Address City/[facility]/ZIP [facility] Phon e Number M [facility] [address], [place] [address] [facility] [address] [place], [place] [address], [facility] [phone] [facility] [address] [facility] [place] [address], [facility] Creatinine (08/16/2020 2:38 AM CDT) athologist Signature Creatinine 0.87 0.52 - 1.04 08/16/2020 [place] mg/dL 3:24 AM [facility] GFR Estimate >90 >60 08/16/2020 [place] mL/min/{1.7 3:24 AM [facility] 3_m2} [facility] Comment: Non GFR Calc Starting 02/16/2018, serum creatinine ba sed estimated GFR (eGFR) will be calculated using the Chronic Kidney Dise [facility] Epidemiology Collaboration (CKD-EPI) equation. GFR Estimate If >90 >60 mL/min/{1.73_m2} 08/16/2020 3: 24 AM [facility] Comment: GFR Calc Starting 02/16/2018, serum creatinine ba sed estimated GFR (eGFR) will be calculated using the Chronic Kidney Dise [facility] Epidemiology Collaboration (CKD-EPI) equation. Specimen Anatomical Collection Method Collection Time Receive d Time (Source) Location / / Volume Laterality Blood 08/16/2020 2:38 AM 2:39 CDT AM CDT Kasia Mehta MD LAB - BLOOD ORDERABLES Performing Organization Address City/[facility]/ZIP Code Phon e Number [facility] [address], [place] [address] [facility] [address] [place], [place] [address], [facility] [phone] ALT (08/16/2020 2:38 AM CDT) athologist Signature ALT 14 0 - 50 U/L 08/16/2020 [facility] 3:24 AM CDT HOSPITAL Specimen Anatomical Collection Method Collection Time Receive d Time (Source) Location / / Volume Laterality Blood 08/16/2020 2:38 AM 1 2:39 CDT AM CDT Kasia Mehta MD LAB - BLOOD ORDERABLES Performing Organization Address City/State/ZIP [facility] Phon e Number M [facility] [address], [place] [address] [facility] [address] [place], [place] [address], [facility] [phone] AST (08/16/2020 2:38 AM CDT) athologist Signature AST 23 0 - 45 U/L 08/16/2020 [facility] 3:24 AM CDT HOSPITAL Specimen Anatomical Collection Method Collection Time Receive d Time (Source) Location / / Volume Laterality Blood 08/16/2020 2:38 AM 1 2:39 CDT AM CDT Kasia Mehta MD LAB - BLOOD ORDERABLES Performing Organization Address City/State/[facility] Phon e Number M [facility] [address], [place] [address] [facility] [address] [place], [place] [address], [facility] [phone] (ABNORMAL) Glucose by meter (08/15/2020 11:50 PM CDT) athologist Signature Glucose 106 (H) 70 - 99 08/15/2020 POINT OF CARE mg/dL 11:57 PM CDT TEST, GLUCOSE Specimen Anatomical Collection Method Collection Time Receive d Time (Source) Location / / Volume Laterality 08/15/2020 11:50 08/15/2020 PM CDT 11:57 PM CDT Kasia Mehta MD LAB - BEAKER POCT Performing Organization Address City/State/ZIP Code Phon e Number FV POINT OF CARE TEST, GLUCOSE POINT OF CARE TEST, GLUCOSE (ABNORMAL) Glucose by meter (08/15/2020 10:52 PM CDT) P athologist Signature Glucose 108 (H) 70 - 99 08/15/2020 POINT OF CARE mg/dL 10:58 PM CDT TEST, GLUCOSE Specimen Anatomical Collection Method Collection Time Receive d Time (Source) Location / / Volume Laterality 08/15/2020 10:52 08/15/2020 PM CDT 10:58 PM CDT Kasia IRIZARRY - BEAKER POCT Performing Organization Address City/State/ZIP Code Phon e Number FV POINT OF CARE TEST, GLUCOSE POINT OF CARE TEST, GLUCOSE ABO/Rh type and screen (08/15/2020 10:35 PM CDT) [facility] Method Time Signature ABO A 08/15/2020 [facility] 11:29 PM CDT [facility] RH(D) Pos [facility] Antibody Neg 08/15/2020 [facility] Screen 11:29 PM CDT [facility] Test Valid [place] 08/15/2020 [facility] Only At [facility] 11:13 PM CDT [facility]OSPITAL Specimen 08/18/2020 08/15/2020 [facility] Expires 11:13 PM CDT [facility] Specimen Anatomical Collection Method Collection Time Receive d Time (Source) Location / / Volume Laterality Blood 08/15/2020 10:35 08/15/2020 PM CDT 10:52 PM CDT Kasia Mehta MD LAB - BLOOD BANK TEST ORDER Performing Organization Address City/[facility]/ZIP Code Phon e Number M [facility] [address] [place] [address] [facility] [address] [place] [address] [phone] (ABNORMAL) CBC with platelets differential (08/15/2020 10:35 PM CDT) Component Value Ref Test Analysis Performed At [facility] Range Method Time Signature WBC 10.6 4.0 - 08/15/2020 [facility] 11.0 11:53 PM [facility] 10e9/L CDT HOSPITAL RBC Count 4.30 3.8 - 08/15/2020 [facility] 5.2 11:53 PM [facility] 10e12/L T HOSPITAL Hemoglobin 11.1 (L) 11.7 - 08/15/2020 [facility] 15.7 11:53 PM [facility] g/dL T HOSPITAL Hematocrit 34.3 (L) 35.0 - 08/15/2020 [facility] 47.0 % 11:53 PM [facility] MCV 80 78 - 100 08/15/2020 [facility] fl 11:53 PM [facility] MCH 25.8 (L) 26.5 - 08/15/2020 [facility] 33.0 pg 11:53 PM [facility] MCHC 32.4 31.5 - 08/15/2020 [facility] 36.5 11:53 PM [facility] g/dL [facility] RDW 15.2 (H) 10.0 - 08/15/2020 [facility] 15.0 % 11:53 PM [facility] Platelet Count 196 150 - 08/16/2020 [facility] 450 12:01 AM [facility] 10e9/[facility] Diff Method Automated 08/16/2020 [facility] Method 12:01 AM [facility] % Neutrophils 70.5 % 08/16/2020 [facility] 12:01 AM [facility] % Lymphocytes 21.8 % 08/16/2020 [facility] 12:01 AM [facility] % Monocytes 5.2 % 08/16/2020 [facility] 12:01 AM [facility] % Eosinophils 1.6 % 08/16/2020 [facility] 12:01 AM [facility] % Basophils 0.2 % 08/16/2020 [facility] 12:01 AM [facility] % Immature 0.7 % 08/16/2020 [facility] Granulocytes 12:01 AM [facility] Nucleated RBCs 0 0 /100 08/16/2020 [facility] 12:01 AM [facility] Absolute 7.5 1.6 - 08/16/2020 [facility] Neutrophil 8.3 12:01 AM [facility] 10e9/[facility] Absolute 2.3 0.8 - 08/16/2020 [facility] Lymphocytes 5.3 12:01 AM [facility] 10e9/L [facility] Absolute Monocytes 0.6 0.0 - 08/16/2020 [facility] 1.3 12:01 [facility] 10e9/L [facility] Absolute 0.2 0.0 - 08/16/2020 [facility] Eosinophils 0.7 12:01 [facility] 10e9/L [facility] Absolute Basophils 0.0 0.0 - 08/16/2020 [facility] 0.2 12:01 [facility] 10e9/L [facility] Abs Immature 0.1 0 - 0.4 08/16/2020 [facility] Granulocytes 10e9/L 12:01 [facility] Absolute Nucleated 0.0 08/16/2020 [facility] RBC 12:01 [facility] Anisocytosis Slight 08/16/2020 [facility] 12:01 [facility] Poikilocytosis Slight 08/16/2020 [facility] 12:01 [facility] Polychromasia Slight 08/16/2020 [facility] 12:01 [facility] Ovalocytes Slight 08/16/2020 [facility] 12:01 [facility] Platelet Estimate Automated 08/16/2020 [facility] count 12:01 [facility] confirmed[facility] Platelet morphology is normal. Specimen Anatomical Collection Method Collection Time Receive d Time (Source) Location / / Volume Laterality Blood 08/15/2020 10:35 08/15/2020 PM CDT 10:52 PM CDT Kasia Mehta MD LAB - BLOOD ORDERABLES Performing Organization Address City/State/ZIP Code Phon e Number [place] [address], [place] [address] [phone] [facility] [address] [place], [place] [address] [place] [address] Treponema Abs w Reflex to RPR and Titer (08/15/2020 10:35 PM CDT) [facility] Method Time Signature Treponema Nonreactive NR^Nonrea 08/16/2020 [facility] ctive 9:12 AM CDT [facility] Comment: Methodology Change: Test performed on [employer] by Treponema pallidum Total Antibodies Assay as of 3. 17.2020. Specimen Anatomical Collection Method Collection Time Receive d Time (Source) Location / / Volume Laterality Blood 08/15/2020 10:35 08/15/2020 PM CDT 10:51 PM CDT Kasia Mehta MD LAB - BLOOD ORDERABLES Performing Organization Address City/State/ZIP Code Phon e Number [facility] [address] Asymptomatic SARS-CoV-2 COVID-19 Virus (Coronavirus) by PCR (08/15/2020 10:00 PM CDT) [facility] Method Time Signature SARS-CoV-2 Nasopharyngeal 08/15/2020 [place] Virus 10:22 PM CDT [facility] Source SARS-CoV-2 NEGATIVE 08/15/2020 [place] PCR Result 11:22 PM CDT [facility] Comment: SARS-CoV2 (COVID-19) RNA not de tected, presumed negative. SARS-CoV-2 PCR Comment (Note) 08/15/2020 11 :[address] [facility] Comment: Testing was performed using the carrie [...] exposure or clinical pr esentation suggests COVID-19. [facility] are certi fied under the Clinical Laboratory Improvement Amendments of 1988 (CLIA-88) as qualified to perform moderate and/or high complexity laboratory testin g. Specimen (Source) Anatomical Collection Method Collection Time Re ceived Time Location / / Volume Laterality Specimen from 08/15/2020 10:00 08/15/2020 nasopharyngeal PM CDT 10:22 PM CDT structure (specimen) Kasia Mehta MD LAB - MICRO GENERAL ORDERABL ES Performing Organization Address City/State/ZIP Code Phon e Number [facility] [address], [place] [address] [facility] [address] [place], [place] [address], [facility] [phone] (ABNORMAL) Rupture of Membranes by ROM Plus (08/15/2020 9:15 PM CDT) [facility] gist Method Time Signature Rupture of Positive (A) NEG^Negat 08/15/2020 LARGO arnol 9:48 PM CDT [facility] Membranes by [facility] Comment: It is recommended that the tests to dete ct rupture of the amniotic membranes should not be used without other clinica l assessments to make clinical patient management decision. Specimen Anatomical Collection Method Collection Time Receive d Time (Source) Location / / Volume Laterality Amniotic fluid 08/15/2020 9:15 PM 021 9:43 specimen CDT PM CDT (specimen) Kasia Mehta MD LAB - BODY FLUIDS ORDERABLES Performing Organization Address City/[facility]/ZIP Code Phon e Number M [facility] [address], [place] [address] [facility] [address] [place], [place] [address] 7, [facility] [phone] Group B strep PCR (08/02/2020) athologist Signature [...] Visit Diagnoses Diagnosis (spontaneous vaginal delivery) - [facility] Normal delivery Pre-eclampsia, severe, delivered Severe pre-eclampsia, with delivery Anemia due to blood loss, acute Acute posthemorrhagic anemia Type 1 diabetes mellitus without complic ation (H) Type I (juvenile type) diabetes mellitus without mention of complication, not stated as uncontrolled Leakage, amniotic fluid Premature rupture of membranes in [facility], unspecified as to episode of care Pre-eclampsia, severe, delivered Severe pre-eclampsia, with delivery Anemia due to blood loss, acute Acute posthemorrhagic anemia documented in this encounter Admitting Diagnoses Diagnosis Leakage, amniotic fluid Premature rupture of membranes in [facility], unspecified as to episode of care documented [...] May repeat x 1 only, Starting on Philomena 08/16/20 at 1012, May giv e SQ or [...] TIMES DAILY BEFORE MEALS, First dose on [facility] 08/16/20 at 1200, Correction Scale - MEDIUM [...] Units, Subcutaneous, AT BEDTIME, First dose on [facility] 08/16/20 at 2200, MEDIUM INSULIN RESISTANCE [...] DAILY BEFORE MEALS , First dose on 08/20/20 at 1200, Dose = 1 units per 8 grams of carbohydate. If given at mealti me, administer within 30 minutes of start of meal insulin glargine (LANTUS) injection 18 Given 08/18/2020 9:59 PM CDT 18 Units Units 18 Units, Subcutaneous, AT BEDTIME, First dose (after last modification) on [facility] 08/18/20 at 2200, *Not for IV use, [...] 100 mg 100 mg, Oral, ONCE, On 08/19/20 at 1000, For 1 dose, For a total dose of 300mg this am. labetalol (NORMODYNE) tablet 100 mg Given 08/19/2020 10:06 PM CDT 100 mg 100 mg, Oral, ONCE, On 08/19/20 at 2200, For 1 dose labetalol [...] (after last modification) on 08/20/20 at 0800 labetalol (NORMODYNE/TRANDATE) algorithm -medication instruction [...] or EQUAL to 110 mmHg., Starting on [facility] 08/16/20 at 0024, Give IF sub-optimal [...] THAN or EQUAL 110 mmHg., Starting on [facility] 08/16/20 at 0024, Give IF sub-optimal [...] Oral, 2 TIMES DAILY, First dose on [facility] 08/16/20 at 1030, Hold for loose stools. [...] site., Starting on Thu08/15/20 at 2200, Until Thu08/16/20 at 1014 documented in this encounter Active [...] Kirsten Dominguez RN - Comment: given before [id number] carb units dose verified with ANDRE Wagoner) 0835 (Not Given - Provider: Terri gabriel RN - Reason: Order parameters not met - Comment: pre-prandial blood glucose less than 60) Subcutaneous, EVERY MORNING BEFORE BREAK FAST, First dose on 6/18/21 at 0730, DOSE: 1 units per 5 [...] aspart (NovoLOG) injection (RAPID ACTING) (CAN CELED) 185 (Given - Provider: Alberta Lino RN - Comment: 120 grams of carbs) 1844 (Given - Provider: Alberta Lino RN - Comment: 55 grams of carbs) Subcutaneous, DAILY WITH SUPPER, First d ose on Thu08/16/20 at 1700, DOSE: 1 units [...] bg 231) 1844 (Given - Provider: Alberta Lino RN) or Pre-Meal BG 140 - 189 give [...] 0930 labetalol (NORMODYNE) tablet 300 mg (CANCELED) 3 (Given - Provider: Christelle Mckeon RN) 300 [...] equal to 100 mg/dL 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 If blood glucose at 15 min mundo rechecks is still less than or equal [...] THAN or EQUAL to 110 mmHg., Starting [facility] 08/16/20 at 0024, Give IF s [...] GREATER THAN or EQUAL 110 mmHg., Starting [facility] 08/16/20 at 0024, Give IF sub-opt [...] give If on magnesium sulfate infusion., Starting Hpilomena 08/16/20 at 0224, For 1 dose magnesium [...] water.
documented in this encounter Care Teams Negotiations Director Relationship Specialty Start Date End Date Moisés Prater PCP - General Family Practice 08/20/[address] [place] [address] documented as of this encounter
--- OUTSIDE RECORDS SUMMARY | 2021-12-12 09:51 | XMS_ITS | Clinical Summary ---
:2000 Author Organization [facility] Address [address] [place] [address] Care Team Providers Name Role Phone Palmira [...] for each transition of care or referral. SCOUPY Allergies Active Allergy Reactions Severity Noted Date [...] every 8 g carbs TDD 60-100 units, Indications: Diabetes Mellitus, Reported on 05/13/2021 Ferrous [...] Information Patient taking differently: 34 units QPM, Indications: Diabetes Mellitus, Reported on 08/07/2021 levothyroxine [...] Multidose Vial 0.25 (6-35 10/31/2016, 11/26/2015 Mos) [id number] 01/19/2009 H1n1 Laiv Medimmune 2-49 Yr 01/19/2009 (Intranasal) HepA Ped/Adol (1-18 yrs) 11/04/2013, 01/08/2011 HepB Ped/Adol (0-18 yrs) 03/30/2001, 02/04/2000, 1999 Hib/HBV 03/30/2001, 02/04/2000, 1999 IPV (Polio) 11/06/2004, 06/29/2000, 02/04/2000, 1999 Influenza IIV4 (Quadrivalent) 0.5mL 12/17/2020, 03/08/2020, 12/16/2016, ([id number]) 01/09/2014 Influenza LAIV (Nasal, 2-49 yrs) 10/28/2010 [...] history exists Diabetes: Urine Microalbumin 05/13/2022 05/13/2021, 01/16/ 020, 05/20/2018 Diabetes: Lipid Panel 05/21/2023 05/20/2018 [...] Effective Dates Phone Addre ss Type Group [facility] [id number] 2021-Present [phone] CLAIMS Medicaid [address] [place] [address] RETURNED (Home) MAIL 11/22/[address] [place] [id number] Nabila Serna Personal/Family Self 2000 RETURNED (Home) MAIL 11/22/[address] [address] Care Teams Access Specialist Relationship Specialty Start Date End Date Palmira Lim MD PCP - General 05/08/[address] [place] [address]
--- OUTSIDE RECORDS SUMMARY | 2021-12-12 09:52 | XMS_ITS | Encounter Summary ---
:1999 Author Organization [employer] Address [address] [place] [address] Care Team Providers Name Role Phone Palmira Lim MD Primary Care Provider Reason for Visit Reason Comments Encounter Details Date Type Department Care Team Description 09/25/2020 Telephone [facility] 39[address] Olga Grigsby, RN [address] [place], [place] [phone] Social History Tobacco Use Types Packs/Day Years [...] on filedocumented in this encounter Care Teams Digital Marketing Intern Relationship Specialty Start Date End Date Palmira Lim MD PCP - General 05/08/[address] [place] [address] documented as of this encounter
--- OUTSIDE RECORDS SUMMARY | 2021-12-12 09:52 | XMS_ITS | Encounter Summary ---
:1999 Author Organization [employer] Address [address] [place] [address] Care Team Providers Name Role Phone Palmira Lim MD Primary Care Provider Encounter Details Date Type Department Care Team Description 12/17/2020 Notes/Orders [place] [address] [facility] [address] [address] for other mental [place], [place] [facility] [phone] disorders (Primary Dx) [phone] Social History Tobacco Use Types Packs/Day Years [...] Primary documented in this encounter Care Teams Certified Solid Waste Facility Operator Relationship Specialty Start Date End Date Palmira Lim MD PCP - General 05/08/[address] [place], [place] [address] documented as of this encounter
--- OUTSIDE RECORDS SUMMARY | 2021-12-12 09:52 | XMS_ITS | Encounter Summary ---
:1999 Author Organization [employer] Address [address] [place] [address] Care Team Providers Name Role Phone Palmira Lim MD Primary Care Provider Encounter Details Date Type Department Care Team Description 10/17/2020 Notes/Orders [place] [address] [facility] examination [address] [address] [facility] [address] for other mental [place], [place] health [facility] [phone] disorders (Primary Dx) [phone] Social History Tobacco Use Types Packs/Day Years [...] Primary documented in this encounter Care Teams Material Control Supervisor Relationship Specialty Start Date End Date Palmira Lim MD PCP - General 05/08/[address] [place], [place] [address] documented as of this encounter
--- OUTSIDE RECORDS SUMMARY | 2021-12-12 09:52 | XMS_ITS | Encounter Summary ---
:1999 Author Organization [employer] Address [address] [place] [address] Care Team Providers Name Role Phone Palmira Lim MD Primary Care Provider Reason for Visit Reason Comments NST,(NON STRESS TEST) Not needed Encounter Details Date Type Department Care Team Description 08/13/2020 Routine [place] [facility] Shana Hernández MD NST,(NON STRESS Services-WATCH LEADER [address] TEST) (Not needed) [address], [address] [place] [phone] Social History Tobacco Use Types Packs/Day Years [...] - 08/13/2020 1:00 PM CDT Patient's BPP 8/8. SATYA 26.9 cm. Next appt scheduled 08/16/2020. No NST needed today per Dr. Hernández. Patient informed and reminded of upcoming appts. Verbalized understanding and all questions answered. documented in this encounter Plan of Treatment Not on filedocumented as of this encounter Visit Diagnoses Diagnosis Pre-existing type 1 diabetes mellitus du ring in second trimester - Primary documented in this encounter Care Teams Materials Handler Relationship Specialty Start Date End Date Palmira Lim MD PCP - General 05/08/06 [address] [address] documented as of this encounter
--- OUTSIDE RECORDS SUMMARY | 2021-12-12 09:52 | XMS_ITS | Encounter Summary ---
:1999 Author Organization [employer] Address [address] [place] [address] Care Team Providers Name Role Phone Palmira Lim MD Primary Care Provider Encounter Details Date Type Department Care Team Description 09/12/2020 Notes/Orders [place] [address] [facility] examination [address] [address] [facility] [address] for other mental [place], [place] [facility] [phone] disorders (Primary Dx) [phone] Social History Tobacco Use Types Packs/Day Years [...] Primary documented in this encounter Care Teams Mechanical Test Technician Relationship Specialty Start Date End Date Palmira Lim MD PCP - General 05/08/[address] [place], [place] [address] documented as of this encounter
--- OUTSIDE RECORDS SUMMARY | 2021-12-12 09:52 | XMS_ITS | Encounter Summary ---
:1999 Author Organization [employer] Address [address] [place] [address] Care Team Providers Name Role Phone Palmira Lim MD Primary Care Provider Reason for Visit Reason Comments Refill ULTICARE MINI PEN NEEDLES [P harmacy Med Name: UltiCare Mini Pen [place] Miscellaneous 31G X 6 MM] Encounter Details Date Type Department Care Team Description 01/20/2021 Refill [place] [address] Aiden Beltran, Refill (ULTICARE MINI PEN Endocrinology ELIGIBILITY TECHNICIAN, ELECTRON GUN INSPECTOR NEEDLES [Pharmacy Med [address] Nam e: UltiCare Mini [address] [place] Miscellaneous 31G [place], [place] X 6 MM]) [phone] (Wo rk) Social History Tobacco Use Types Packs/Day Years Used Date Smoking Tobacco: Former Cigarettes 0.3 1 Smokeless Tobacco: Never Alcohol Use Standard Drinks/Week Comments Not Currently 0 (1 standard drink = 0.6 oz pure alcoho l) on ocass Sex Assigned at Date Recorded Female 09/14/2020 7:23 AM CDT documented as of this encounter Nursing Notes Aleida Melendez, RN - 01/21/2021 9:21 AM CST Requested Prescriptions Signed Prescriptions Disp Refills ??? ULTICARE MINI PEN NEEDLES 500 Each 2 Sig: USE TO INJECT INSULING 5 TIMES DAILY Authorizing Provider: AIDEN BELTRAN Ordering User: ALEIDA MELENDEZ Filled per RN protocol. ND SPECIALIST Interface, Out AppSame Prov Query - 01/20/2021 1:42 PM CST ULTICARE MINI PEN NEEDLES [Pharmacy Med Name: UltiCare Mini Pen [place] Miscellaneous 31G X 6 MM] Endocrinology: Diabetes Non-DME Supplies -> The requested medication was previously set to Historical. -> Refill x 12 months (maximum allowed) Last qualifying visit: 09/19/2020 (in [facility]) Next scheduled visit: None Last ordered by UNKNOWN, PHYSICIAN: 08/06/2020 (167 days ago as Historical on 08/09/2020 by MOHIT PHAN), Sig: use to inject insuling 5 times daily (unchanged) Powered by [employer]ch by [employer], Reference: [id number], 01/20/2021 1:42:38 PM REFUND SPECIALIST, Pool: ENDO PN REFILL ([id number]) ND SPECIALIST documented in this encounter Plan of Treatment Not on filedocumented as of this encounter Visit Diagnoses Not on filedocumented in this encounter Care Teams Nursing Unit Clerk Relationship Specialty Start Date End Date Palmira Lim MD PCP - General 05/08/[address] [place] [address] documented as of this encounter
--- OUTSIDE RECORDS SUMMARY | 2021-12-12 09:52 | XMS_ITS | Encounter Summary ---
:1999 Author Organization [employer] Address [address] [place] [address] Care Team Providers Name Role Phone Palmira Lim MD Primary Care Provider Reason for Visit Reason Comments Medication Questions Encounter Details Date Type Department Care Team Description 08/28/2020 Telephone [facility]'s Nabila Stokes on Questions Services-SUPERANNUATION CLERK MD [place] [address] [facility], [address] [place] [address] 5 [phone] Social History Tobacco Use Types Packs/Day Years [...] Center 08/29/2020 2:00 PM Nabila Stokes MD [place] [facility]-SUPERANNUATION CLERK PN [facility] FR April Clarke RN - 08/28/2020 4:54 PM CDT Images from the original note were not included. Nabila Stokes MD [facility] Ob[facility] Triage 6 minutes ago (4:45 PM) EO I am personal service representative tomorrow, but can have a flexible schedule [...] call back with thisupdated appt information. April Omalley RN - 08/28/2020 4:11 PM CDT Attempted to contact patient. Generic voicemail at number, message left to call back. April Omalley RN - 08/28/2020 4:09 PM CDT Images from the original note were not included. Nabila Stokes MD [facility] Triage; Petey Jang LPN 10 minutes [...] could you send her an EPDS through [employer] before this? ?? Thanks! Message text Veronica [...] on filedocumented in this encounter Care Teams Loading Unit Tool Setter Relationship Specialty Start Date End Date Palmira Lim MD PCP - General 05/08/[address] [place] [address] documented as of this encounter
--- OUTSIDE RECORDS SUMMARY | 2021-12-12 09:52 | XMS_ITS | Encounter Summary ---
:1999 Author Organization [facility] Address [address] [place] [address] Care Team Providers Name Role Phone Palmira Lim MD Primary Care Provider Encounter Details Date Type Department Care Team Description 12/17/2020 Immunization [place] [address] Family Need for prophylactic Medicine vaccination and [address] [place] [address] influenza (Primary Dx) [phone] Social History Tobacco Use Types Packs/Day Years [...] Primary documented in this encounter Care Teams Radioactivity Technician Relationship Specialty Start Date End Date Palmira Lim MD PCP - General 05/08/[address] [place], [place] [address] documented as of this encounter
--- OUTSIDE RECORDS SUMMARY | 2021-12-12 09:52 | XMS_ITS | Encounter Summary ---
:1999 Author Organization [employer] Address [address] [place] [address] Care Team Providers Name Role Phone Palmira Lim MD Primary Care Provider Reason for Visit Reason Comments Follow-up Encounter Details Date Type Department Care Team Description 05/13/2021 Office Visit [facility] [address] Lilian Maldonado Type 1 diabetes mellitus without complication (HRC) (Primary Dx); Endocrinology M, KAIN Subclinical hypothyroidism 3800 [facility] 3800 [facility] [place] [phone] Social History Tobacco Use Types Packs/Day Years [...] Maldonado MBBS - 05/13/2021 2:45 PM CDT [facility] Department of Endocrinology, Diabetes and [...] today, restart levothyroxine if needed. KAIN Bruce C Python Developer documented in this encounter Plan of Treatment [...] athologist Signature Creatinine 0.73 0.55 - 05/13/2021 [facility] 1.02 mg/dL 5:24 PM CDT [address] [facility] GFR, Estimated >60 >60 05/13/2021 [facility] mL/min/1.7 5:24 PM CDT [address] [facility] 3m2 Specimen Anatomical Collection Method / Collection Time Recei andrade Time (Source) Location / Volume Laterality Blood Venipuncture / 05/13/2021 3:26 05/13/2021 3:26 Unknown PM CDT PM CDT Lilian FINNEGAN LAB_1 Performing Organization Address City/[facility]/ZIP Code Phon e Number [facility] [address] [place], [place] [phone] [address] (ABNORMAL) POCT glycosylated hemoglobin (Hb A1C) (05/13/2021 2:07 PM CDT) Analysis Performed At Patho logist Time Signature Hemoglobin A1C 13.1 (A) 5.6 % POCT (Rapid) Cartridge Lot# 895 POCT Specimen (Source) Anatomical Collection Method Collection Time Re ceived Time Location / / Volume Laterality Blood 05/13/2021 2:07 PM CDT Lilian FINNEGAN ET POINT OF CARE TEST ENTER/ EDIT ORDERABLES Performing Organization Address City/[facility]/ZIP Code Phon e Number POCT documented in this encounter Visit Diagnoses Diagnosis Type 1 diabetes mellitus without complic ation (HRC) - Primary Type I (juvenile type) diabetes mellitus without mention of complication, not stated as uncontrolled Subclinical hypothyroidism Other specified acquired hypothyroidism documented in this encounter Care Teams General Ophthalmologist Relationship Specialty Start Date End Date Palmira Lim MD PCP - General 05/08/06 [address] [address] documented as of this encounter
--- OUTSIDE RECORDS SUMMARY | 2021-12-12 09:52 | XMS_ITS | Encounter Summary ---
:1999 Author Organization [employer] Address [address] [place] [address] Care Team Providers Name Role Phone Palmira Lim MD Primary Care Provider Reason for Visit Reason Onset Date Comments Refill 01/23/2021 insulin glargine (LA NTUS SOLOSTAR) 100 UNIT/ML pen Encounter Details Date Type Department Care Team Description 01/23/2021 Refill [facility] [address] Maldonado, Re khurram (insulin Endocrinology MBBS glargine (LANTUS [address]) 100 UNIT/ML [address] [place]) [place] [phone] Social History Tobacco Use Types Packs/Day Years Used Date Smoking Tobacco: Former Cigarettes 0.3 1 Smokeless Tobacco: Never Alcohol Use Standard Drinks/Week Comments Not Currently 0 (1 standard drink = 0.6 oz pure alcoho l) on ocass Sex Assigned at Date Recorded Female 09/14/2020 7:23 AM CDT documented as of this encounter Nursing Notes Jc Akhtar RN - 01/23/2021 2:50 PM CST Renewed medication per medication refill protocol. Requested Prescriptions Signed Prescriptions Disp Refills ??? insulin glargine (LANTUS SOLOSTAR) 100 UNIT/ML pen 30 mL 1 Sig: Inject 24 Units subcutaneously daily. Indications: Diabetes Mellitus Authorizing Provider: FAUSTO MALDONADO Ordering User: JC AKHTAR PUBLIC RELATIONS Interface, Out Surescripts Prov Query - 01/23/2021 [...] scheduled visit: None Last ordered by FAUSTO MALDONDAO: 05/16/2020 (252 days ago) QTY: 30, Refills: 3, Sig: inject 40-60units subcutaneously daily. indications: diabetes mellitus (unchanged) Rapid A1C : 7 % on 09/19/2020 PATIENT IS DUE FOR: - HBA1C (PN ONLY) Powered by F[employer], Reference: [id number], 01/23/2021 2:40:32 PM VP PUBLIC RELATIONS, Pool:ENDO PN NURSING TEAM 1 ([id number]) PUBLIC RELATIONS documented in this encounter Plan of Treatment Not on filedocumented as of this encounter Visit Diagnoses Diagnosis Type 1 diabetes mellitus without complic ation (HRC) - Primary Type I (juvenile type) diabetes mellitus without mention of complication, not stated as uncontrolled documented in this encounter Care Teams Rigger Chief Relationship Specialty Start Date End Date Palmira Lim MD PCP - General 05/08/[address] [place] [id number] documented as of this encounter
--- OUTSIDE RECORDS SUMMARY | 2021-12-12 09:52 | XMS_ITS | Encounter Summary ---
:1999 Author Organization [facility] Address [address] [place] [address] Care Team Providers Name Role Phone Palmira Lim MD Primary Care Provider Encounter Details Date Type Department Care Team Description 08/20/2020 [facility] Initial Department Provider, [facility] [address] K[address] Burgos MD 08/20/[address] Interface [place], [place] provider [address] interface [phone] [place] [address] Social History Tobacco Use Types Packs/Day Years [...] on filedocumented in this encounter Care Teams Computer Operations Manager Relationship Specialty Start Date End Date Palmira Lim MD PCP - General 05/08/[address] [place] [address] documented as of this encounter
--- OUTSIDE RECORDS SUMMARY | 2021-12-12 09:52 | XMS_ITS | Encounter Summary ---
:1999 Author Organization [employer] Address [address] [place] [address] Care Team Providers Name Role Phone Palmira Lim MD Primary Care Provider Reason for Visit Reason Comments POST- Encounter Details Date Type Department Care Team Description 10/11/2020 Visit [facility] Della Meehan MD POST- Services-STUDENT SUPPORT SERVICES DIRECTOR [address] [place] [id number] [place] [address], [address] [place] [address] [place], [place] [phone] (Wo rk) [address] [phone] Social History Tobacco Use Types Packs/Day Years [...] MD - 10/11/2020 1:30 PM CDT [facility] CC: visit Subjective [...] She is pumping and bottle feeding. Her infant is doing well. She has not had [...] Endo - Hypothyroid: on 50mcg levothyroxine daily [place] Depression Screen: 1 Objective LMP 11/27/2019 (Exact [...] Component Value Ref Test Analysis Performed At [facility] Method Time Signature Case Report Pap ? Case: [id number] ? 10/19/2020 [facility] Authorizing Provider: ??Mechelle Meehan, ? Collected: ? 10/11/2020 1406 ? 2:41 PM LABORAT ORY Ordering Location: ? [facility] ? Received: ?10/11/2020 1621 ? CDT ? Services-STUDENT SUPPORT SERVICES DIRECTOR ? First Screen: ? Ahn, Tara D, CT ? (ASCP) ? Specimen: ?Pap Test, Rou jamila, Cervix/Endocervix ? Pap Specimen Satisfactory for 10/19/2020 [facility] Adequacy evaluation, 2:41 PM LABORATORY endocervical/hendrickson CDT sformation zone component present. Pap Negative for 10/19/2020 [facility] Electr onically Interpretation intraepithelial 2:41 PM LABORATOR Y signed by lesion or CDT Alejo Ahn sten malignancy D, CT ( CP) on (NILM). 10/19/2020 at 2:41 PM Pap Disclaimer The [...] may occur. Gross The specimen is 10/19/2020 [facility] Description received in 2:41 PM LABORATORY [facility] fixative CDT and properly labeled. 1 Pap-stained [facility] slide is prepared. Embedded Images 10/19/2020 [facility] 2:41 PM LABORATORY CDT Specimen Anatomical Collection Method Collection Time Receive d Time (Source) Location / / Volume Laterality Other Specimen ENTIRE ENDOCERVIX 10/11/2020 2:06 PM 4:21 Type / Unknown CDT PM CDT Comment: LMP: Patient's last menstrual p eriod was 11/27/2019 (exact date). Mechelle Meehan MD LAB PATHOLOGY Performing Organization Address City/State/ZIP Code Phon e Number [facility] [address] [place] [address] documented in this encounter Visit Diagnoses Diagnosis care following vaginal delive ry - Primary Routine follow-up Cervical cancer screening Screening for malignant neoplasm of the cervix Pre-existing type 1 diabetes mellitus du ring in second trimester Hypothyroidism, unspecified type (HRC) Pre-eclampsia, severe, delivered Severe pre-eclampsia, with delivery Skin tag Unspecified hypertrophic and atrophic co ndition of skin documented in this encounter Care Teams Custom Garment Designer Relationship Specialty Start Date End Date Palmira Lim MD PCP - General 05/08/[address] [place] [address] documented as of this encounter
--- OUTSIDE RECORDS SUMMARY | 2021-12-12 09:52 | XMS_ITS | Encounter Summary ---
:1999 Author Organization [employer] Address [address] [place] [address] Care Team Providers Name Role Phone Palmira Lim MD Primary Care Provider Encounter Details Date Type Department Care Team Description 08/09/2020 Lab Visit [facility] Pre-eclam [facility]ia in [facility] trimester [address] [facility], [facility] [address] [place] [address] Social History Tobacco Use [...] Hernández MD - 08/09/2020 2:10 PM CDT Hi Nabila, Your recent lab results were normal today. Normal kidney, liver and platelet function meaning no progression of preeclampsia at this point. Please contact our clinic at [phone] or via [facility] if you have any questions. Thanks, Shana [...] (SGPT) <10 0 - 55 U/L 08/09/2020 [place] 5:09 PM CDT LABORATORY Specimen Anatomical Collection Method / Collection Time Recei andrade Time (Source) Location / Volume Laterality Blood Venipuncture / 08/09/2020 2:11 08/09/2020 2:11 Unknown PM CDT PM CDT Shana Hernández MD LAB_1 Performing Organization Address [facility] [place] e [facility] LABORATORY [address] [place], [place] [phone] AST (SGOT) [AST] (08/09/2020 2:11 PM CDT) athologist Signature AST (SGOT) 17 10 - 40 U/L 08/09/2020 [place] 5:09 PM CDT LABORATORY Specimen Anatomical Collection Method / Collection Time Recei andrade Time (Source) Location / Volume Laterality Blood Venipuncture / 08/09/2020 2:11 08/09/2020 2:11 Unknown PM CDT PM CDT Shana Hernández MD LAB_1 Performing Organization Address City/[facility] e Number [facility] [facility] [address] [place], [place] [phone] Platelet Count [PLT] (08/09/2020 2:11 PM CDT) athologist Signature Platelets 228 150 - 450 08/09/2020 [place] x10(9)/L 4:45 PM CDT LABORATORY Specimen Anatomical Collection Method / Collection Time Recei andrade Time (Source) Location / Volume Laterality Blood Venipuncture / 08/09/2020 2:11 08/09/2020 2:11 Unknown PM CDT PM CDT Shana Hernández MD LAB_1 Performing Organization Address [facility] e [facility] LABORATORY [address] [place] [address] Creatinine [CREAT] (08/09/2020 2:11 PM CDT) athologist Signature Creatinine 0.60 0.55 - 08/09/2020 [place] 1.02 mg/dL 5:09 PM CDT LABORATORY GFR, Estimated >60 >60 08/09/2020 [place] mL/min/1.7 5:09 PM CDT LABORATORY 3m2 Specimen Anatomical Collection Method / Collection Time Recei andrade Time (Source) Location / Volume Laterality Blood Venipuncture / 08/09/2020 2:11 08/09/2020 2:11 Unknown PM CDT PM CDT Shana Hernández MD LAB_1 Performing Organization Address [facility] e Number [facility] [facility] [address] [place] [address] documented in this encounter Visit Diagnoses Diagnosis Pre-eclampsia in third trimester Mild or unspecified pre-eclampsia, antep artum documented in this encounter Care Teams Automation Machine Builder Relationship Specialty Start Date End Date Palmira Lim MD PCP - General 05/08/[address] [address] documented as of this encounter
--- OUTSIDE RECORDS SUMMARY | 2021-12-12 09:52 | XMS_ITS | Encounter Summary ---
:1999 Author Organization [employer] Address [address] [place] [address] Care Team Providers Name Role Phone Palmira Lim MD Primary Care Provider Reason for Visit Reason Comments Diabetes Encounter Details Date Type Department Care Team Description 08/15/2020 Office Visit Moisés JoelChristiansophia Pre-existin g type 1 diabetes mellitus during in second trimester (Primary Dx); Endocrinology M, KAIN Subclinical hypothyroidism [address] [address] [facility] [phone] [place] [address] Social History Tobacco Use Types [...] Maldonado MBBS - 08/15/2020 4:[address] [facility] Department of Endocrinology, Diabetes and Metabolism Clinic Note Name: Nabila Serna Cc: Follow up for T1DM. 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 female works in a [employer]. #1 T1DM: Diagnosed in 2015, no known [...] 50 mcg daily post delivery. KAIN Bruce Regional Transfer Liaison Shaji Villatoro - 08/15/2020 4:30 PM CDT [...] hemoglobin (Hb A1C) (08/16/2020 8:00 AM CDT) P athologist Signature Hemoglobin A1C 6.6 (A) [...] hypothyroidism documented in this encounter Care Teams Highway Patrol Commander Relationship Specialty Start Date End Date Palmira Lim MD PCP - General 05/08/[address] [place] [address] documented as of this encounter
--- OUTSIDE RECORDS SUMMARY | 2021-12-12 09:52 | XMS_ITS | Encounter Summary ---
:1999 Author Organization [employer] Address [address] [place] [address] Care Team Providers Name Role Phone Palmira Lmi MD Primary Care Provider Reason for Visit Reason Comments Diabetes Encounter Details Date Type Department Care Team Description 09/19/2020 Office Visit Lilian Jamil Type 1 diab etes mellitus without complication (HRC) (Primary Dx); Endocrinology M, KAIN Subclinical hypothyroidism [address] [address] [facility] [phone] [place] [address] Social History Tobacco Use Types [...] Maldonado MBBS - 09/19/2020 4:30 PM CDT [facility] Department of Endocrinology, Diabetes and Metabolism Clinic Note Name: Nabila Serna Cc: Follow up for T1DM. HPI: Nabila Serna is a 20 y.o. female works in a [employer]. #1 T1DM: Diagnosed in 2015, no known [...] Restart levothyroxine 50 mcg daily. KAIN Bruce Policy Director documented in this encounter Plan of Treatment [...] documented in this encounter Care Teams Manager Ob Relationship Specialty Start Date End Date Palmira Lim MD PCP - General 05/08/[address] [place] [address] documented as of this encounter
--- OUTSIDE RECORDS SUMMARY | 2021-12-12 09:52 | XMS_ITS | Encounter Summary ---
:1999 Author Organization [employer] Address [address] [facility] [place] [address] Care Team Providers Name Role Phone Palmira Lim MD Primary Care Provider Reason for Visit Reason Comments Routine Visit Encounter Details Date Type Department Care Team Description 08/06/2020 Procedure Visit Specialty Center Kamila Delgadillo Ro utine 3931 Maternal MD Visit Medicine [address] [place] [address] Social History Tobacco Use Types Packs/Day Years [...] Delgadillo MD - 08/06/2020 11:15 AM CDT [facility] ULTRASOUND ENCOUNTER This patient was seen in the [facility] US unit today. Please see separate imaging report. documented in this encounter Plan of Treatment Not on filedocumented as of this encounter Visit Diagnoses Diagnosis Pre-existing type 1 diabetes mellitus du ring in second trimester - Primary documented in this encounter Care Teams Relays Draftsperson Relationship Specialty Start Date End Date Palmira Lim MD PCP - General 05/08/06 [address], [place] [address] documented as of this encounter
--- OUTSIDE RECORDS SUMMARY | 2021-12-12 09:52 | XMS_ITS | Encounter Summary ---
:1999 Author Organization [employer] Address [address] [place] [address] Care Team Providers Name Role Phone Palmira Lim MD Primary Care Provider Reason for Visit Reason Onset Date Comments Refill 10/23/2020 Encounter Details Date Type Department Care Team Description 10/23/2020 Refill [facility] [address], PEDIATRIC ORTHODONTIST, THREAD CUTTER TENDER Refill Endocrinology [address] [place] [address] [place], [place] [address] [phone] Social History Tobacco Use Types Packs/Day Years Used Date Smoking Tobacco: Former Cigarettes 0.3 1 Smokeless Tobacco: Never Alcohol Use Standard Drinks/Week Comments Not Currently 0 (1 standard drink = 0.6 oz pure alcoho l) on ocass Sex Assigned at Date Recorded Female 09/14/2020 7:23 AM CDT documented as of this encounter Nursing Notes Aleida Lucero, RN - 10/23/2020 2:13 PM CDT Requested [...] uncontrolled documented in this encounter Care Teams Biofuels Production Manager Relationship Specialty Start Date End Date Palmira Lim MD PCP - General 05/08/06 [address], [place] [address] documented as of this encounter
--- OUTSIDE RECORDS SUMMARY | 2021-12-12 09:52 | XMS_ITS | Encounter Summary ---
:1999 Author Organization [employer] Address [address] [place] [address] Care Team Providers Name Role Phone Palmira Lim MD Primary Care Provider Encounter Details Date Type Department Care Team Description 09/19/2020 Telephone [facility] O'Nabila Jordan MD Services-FURNITURE ASSOCIATE [address] [address] [facility], [place] [address] [address] [place] [address] [phone] Social History Tobacco Use Types Packs/Day Years [...] on filedocumented in this encounter Care Teams Rail Detector Car Operator Relationship Specialty Start Date End Date Palmira Lim MD PCP - General 05/08/[address] [address] documented as of this encounter
--- OUTSIDE RECORDS SUMMARY | 2021-12-12 09:52 | XMS_ITS | Encounter Summary ---
:1999 Author Organization [employer] Address [address] [place] [address] Care Team Providers Name Role Phone Palmira Lim MD Primary Care Provider Reason for Visit Reason Comments Routine Visit [id number] Encounter Details Date Type Department Care Team Description 08/09/2020 Routine [facility] Shana Hernández MD Routine Services-ZOO DIRECTOR [address] [address] Visit (35w6d) [address], [address] [place] [phone] Social History Tobacco Use Types Packs/Day Years [...] DM ?- Follows in endocrinology; Khoi Quevedo Pressurization Mechanic, Dr. Maldonado.??Last appointment 07/18, next 08/15. Using [...] today??10/07, SATYA 23.6 - Discussed suspected LGA infant and greater risk of CS and shoulder [...] (SGPT) <10 0 - 55 U/L 08/09/2020 [facility] 5:09 PM CDT LABORATORY Specimen Anatomical Collection Method / Collection Time Recei andrade Time (Source) Location / Volume Laterality Blood Venipuncture / 08/09/2020 2:11 08/09/2020 2:11 Unknown PM CDT PM CDT Shana Hernández MD LAB_1 Performing Organization Address [facility]/ZIP Code Phon e Number [facility] [address] [place], [place] [phone] AST (SGOT) [AST] (08/09/2020 2:11 PM CDT) athologist Signature AST (SGOT) 17 10 - 40 U/L 08/09/2020 [facility] 5:09 PM CDT LABORATORY Specimen Anatomical Collection Method / Collection Time Recei andrade Time (Source) Location / Volume Laterality Blood Venipuncture / 08/09/2020 2:11 08/09/2020 2:11 Unknown PM CDT PM CDT Shana Hernández MD LAB_1 Performing Organization Address [facility]/ZIP Code Phon e Number [facility] [address] [place], [place] [phone] Platelet Count [PLT] (08/09/2020 2:11 PM CDT) athologist Signature Platelets 228 150 - 450 08/09/2020 [facility] x10(9)/L 4:45 PM CDT LABORATORY Specimen Anatomical Collection Method / Collection Time Recei andrade Time (Source) Location / Volume Laterality Blood Venipuncture / 08/09/2020 2:11 08/09/2020 2:11 Unknown PM CDT PM CDT Shana Hernández MD LAB_1 Performing Organization Address City/[facility]/ZIP Code Phon e Number [facility] [address] [place] [address] Creatinine [CREAT] (08/09/2020 2:11 PM CDT) athologist Signature Creatinine 0.60 0.55 - 08/09/2020 [facility] 1.02 mg/dL 5:09 PM CDT LABORATORY GFR, Estimated >60 >60 08/09/2020 [facility] mL/min/1.7 5:09 PM CDT LABORATORY 3m2 Specimen Anatomical Collection Method / Collection Time Recei andrade Time (Source) Location / Volume Laterality Blood Venipuncture / 08/09/2020 2:11 08/09/2020 2:11 Unknown PM CDT PM CDT Shana Hernández MD LAB_1 Performing Organization Address City/State/ZIP Code Phon e Number [facility] [address] [place] [address] documented in this encounter Visit Diagnoses [...] (HRC) documented in this encounter Care Teams Urology Teacher Relationship Specialty Start Date End Date Palmira Lim MD PCP - General 05/08/06 [address] [place], [place] [address] documented as of this encounter
--- OUTSIDE RECORDS SUMMARY | 2021-12-12 09:52 | XMS_ITS | Encounter Summary ---
:1999 Author Organization [employer] Address [address] [place] [address] Care Team Providers Name Role Phone Palmira Lim MD Primary Care Provider Reason for Visit Procedure/Equipment (Routine) - Canceled Specialty Diagnoses / Procedures Referred By Contact Refer red To Contact Diagnoses Pre-existing type 1 diabetes mellitus during in second trimester Denisha Serna, PROJECT TECHNICIAN, APRON CLEANER Procedures US OB BPP / SATYA Single [address] [place] [address] Referral ID Status Reason Start Date Expiration Date Visits V isits Requested Authorized [id number] Canceled 06/11/2020 09/10/2021 18 18 Encounter Details Date Type Department Care Team Description 08/09/2020 [facility]illary [facility] Denisha Serna, Pre-e xisting type 1 Procedure Services-Ultrasound PROJECT TECHNICIAN, APRON CLEANER diabetes mellitus [address] [address] [address] [address], [address] [place], [place] second trimester KAYLYN [place] [address] [phone] Social History Tobacco Use Types Packs/Day Years [...] PM CDT BPP 8/8, SATYA 23, vertex. MS-APRON CLEANER documented in this encounter Plan of Treatment [...] SATYA results called: NA Denisha Serna APRN, APRON CLEANER [facility] documented in this encounter Visit Diagnoses Diagnosis Pre-existing type 1 diabetes mellitus du ring in second trimester documented in this encounter Care Teams Metal Flooring Installer Relationship Specialty Start Date End Date Palmira Lim MD PCP - General 05/08/[address] [place] [address] documented as of this encounter
--- OUTSIDE RECORDS SUMMARY | 2021-12-12 09:52 | XMS_ITS | Encounter Summary ---
:1999 Author Organization [employer] Address [address] [place] [address] Care Team Providers Name Role Phone Palmira Lim MD Primary Care Provider Reason for Visit Reason Comments Diabetes Encounter Details Date Type Department Care Team Description 04/08/2021 Telemedicine [facility] [address] Joel Christiansophia Type 1 diabetes mellitus without complication (HRC) (Primary Dx); Endocrinology MKAIN Subclinical hypothyroidism (HRC) [address] [facility] [address] [place] [address]. [place] [id number] Social History Tobacco Use Types Packs/Day Years Used Date Smoking Tobacco: Former Cigarettes 0.3 1 Smokeless Tobacco: Never Alcohol Use Standard Drinks/Week Comments Yes 0 (1 standard drink = 0.6 oz pure alcoho l) on ocass Sex Assigned at Date Recorded Female 09/14/2020 7:23 AM CDT documented as of this encounter Progress Notes Katya Dietrich RN - 04/08/2021 11:15 AM CST Images [...] to take insulin, issues with carpel tunnel ER PROBATE Lilian Maldonado MBBS - 04/08/2021 11:15 AM CST [facility] Department of Endocrinology, Diabetes and Metabolism [...] and A1C before next visit. KAIN Bruce Recovery Agent ER PROBATE documented in this encounter Plan of Treatment Not on filedocumented as of this encounter Results Albumin/Creatinine Ratio,Random Urine (05/13/2021 3:33 PM CDT) P athologist Signature Albumin/Creati 19 <30 mg/g 05/13/2021 [facility] nine Ratio, 5:08 PM CDT 3850 LABORATORY Urine, Random Albumin, 23.5 mg/L 05/13/2021 [facility] Urine, Random 5:08 PM CDT 3850 LABORATOR Y Creatinine, 123 >20 mg/dL 05/13/2021 [facility] Urine, Random mg/dL 5:08 PM CDT 3850 LABORATOR Y Specimen Anatomical Collection Method Collection Time Receive d Time (Source) Location / / Volume Laterality Urine Non-blood 05/13/2021 3:33 PM 3:33 Collection / CDT PM CDT Unknown Lilian FINNEGAN LAB_1 Performing Organization Address [facility] Code Phon e Number [facility] [address] [place], [place] [address] [address] (ABNORMAL) TSH (05/13/2021 3:26 PM CDT) Patholo gist Method Time Signature TSH, Sensitive 123.73 (H) 0.30 - 05/13/2021 [facility] 4.50 8:00 PM CDT LABORATORY uIU/mL Specimen Anatomical Collection Method / Collection Time Recei andrade Time (Source) Location / Volume Laterality Blood Venipuncture / 05/13/2021 3:26 05/13/2021 3:26 Unknown PM CDT PM CDT Lilian FINNEGAN LAB_1 Performing Organization Address City/State/ZIP Code Phon e Number [facility] [address] [place] [address] documented in this encounter Visit Diagnoses Diagnosis Type 1 diabetes mellitus without complic ation (HRC) - Primary Type I (juvenile type) diabetes mellitus without mention of complication, not stated as uncontrolled Subclinical hypothyroidism Other specified acquired hypothyroidism documented in this encounter Care Teams Bottom Turner Relationship Specialty Start Date End Date Palmira Lim MD PCP - General 05/08/[address] [place] [address] documented as of this encounter
--- OUTSIDE RECORDS SUMMARY | 2021-12-12 09:52 | XMS_ITS | Encounter Summary ---
:1999 Author Organization [employer] Address [address] [place] [address] Care Team Providers Name Role Phone Palmira Lim MD Primary Care Provider Reason for Visit Procedure/Equipment (Routine) - Canceled Specialty Diagnoses / Procedures Referred By Contact Refer red To Contact Diagnoses Pre-existing type 1 diabetes mellitus during in second trimester Denisha Serna, SENIOR COGNOS DEVELOPER, AUTOMATIC LATHE SETTER Procedures US OB BPP / SATYA Single [id number] [place] [address] Referral ID Status Reason Start Date Expiration Date Visits V isits Requested Authorized [id number] Canceled 06/11/2020 09/10/2021 18 18 Encounter Details Date Type Department Care Team Description 08/13/2020 Ancillary [facility] Denisha Serna, Pre-e xisting type 1 Procedure Services-Ultrasound SENIOR COGNOS DEVELOPER, AUTOMATIC LATHE SETTER diabetes mellitus [address] [place] [address] [address] r during in [address], [address] [place], [place] second trimester KAYLYN [place] [address] [phone] Social History Tobacco Use Types Packs/Day Years [...] CNP - 08/13/2020 12:45 PM CDT BPP 8/8, SATYA 26. Vertex MS-AUTOMATIC LATHE SETTER documented in this encounter Plan of Treatment [...] NA SATYA results called: NA Denisha Serna SENIOR COGNOS DEVELOPER, AUTOMATIC LATHE SETTER RAD documented in this encounter Visit Diagnoses Diagnosis Pre-existing type 1 diabetes mellitus du ring in second trimester documented in this encounter Care Teams Lube Worker Relationship Specialty Start Date End Date Palmira Lim MD PCP - General 05/08/[address] [place] [address] documented as of this encounter
--- OUTSIDE RECORDS SUMMARY | 2021-12-12 09:52 | XMS_ITS | Encounter Summary ---
:2000 Author Organization [facility] Address [address] [place] [address] Care Team Providers Name Role Phone Palmira Lim MD Primary Care Provider Reason for Visit Reason Comments Refill Continuous Blood Gluc Sensor (DEXCOM G6 SENSOR) MISC [Pharmacy Med Name: Dexcom G6 Sensor Miscellaneo us] Encounter Details Date Type Department Care Team Description 01/20/2021 Refill [facility] [address]an APRN, Refill (Continuous Endocrinology RATE SUPERVISOR Blood Gluc Sensor [address] [place] ([place] XCOM G6 SENSOR) [address] [Pharmacy Med Name: [place], [place] De xcom G6 Sensor [id number] Miscellaneous]) [phone] (Wo rk) Social History Tobacco Use Types Packs/Day Years Used Date Smoking Tobacco: Former Cigarettes 0.3 1 Smokeless Tobacco: Never Alcohol Use Standard Drinks/Week Comments Not Currently 0 (1 standard drink = 0.6 oz pure alcoho l) on ocass Sex Assigned at Date Recorded Female 09/14/2020 7:23 AM CDT documented as of this encounter Nursing Notes Aleida Melendez RN - 01/21/2021 8:34 AM CST Requested Prescriptions Signed Prescriptions Disp Refills ??? Continuous Blood Gluc Sensor (DEXCOM G6 SENSOR) MISC 9 Each 2 Sig: PLACE 1 SENSOR ON DRY, CLEAN, HAIRLESS SKIN EVERY 10 DAYS. Authorizing Provider: AIDEN BELTRAN Ordering User: ALEIDA MELENDEZ Filled per RN protocol. NG CUTTING MACHINE OPERATOR Interface, Out Zivity Prov Query - 01/20/2021 1:51 PM CST [...] instructed every 10 days. (changed) Powered by [employer] by [employer], Reference: [id number], 01/20/2021 1:51:14 PM FOXING CUTTING MACHINE OPERATOR, Pool:KEVIN PN REFILL ([id number]) NG CUTTING MACHINE OPERATOR documented in this encounter Plan of Treatment Not on filedocumented as of this encounter Visit Diagnoses Diagnosis Type 1 diabetes mellitus without complic ation (HRC) Type I (juvenile type) diabetes mellitus without mention of complication, not stated as uncontrolled documented in this encounter Care Teams Nissan Sales Consultant Relationship Specialty Start Date End Date Palmira Lim MD PCP - General 05/08/06 [address] [place] [address] documented as of this encounter
--- OUTSIDE RECORDS SUMMARY | 2021-12-12 09:52 | XMS_ITS | Encounter Summary ---
:2000 Author Organization [facility] Address [address] [place] [address] Care Team Providers Name Role Phone Palmira Lim MD Primary Care Provider Reason for Visit Reason Onset Date Comments PHONE CALL TO PATIENT Phone Visit 08/29/2020 Encounter Details Date Type Department Care Team Description 08/29/2020 Telemedicine [facility] O'JulianNabila spears Pre-ecla mpsia, severe, delivered (Primary Dx); Services-WASTE RECLAIMER MD Maricruz Pre-existing type 1 diabetes mellitus du ring in second trimester; [address] [address] [place] Hypothyr oidism, unspecified type; Drive, [address] Genital warts; [place], [place] Herpes simp melva infection of genitourinary system; [phone] (spontaneous vaginal delivery); [phone] Shoulder dystoc ia, delivered (Work) Social History [...] can you learn more? 1. Go to https://www.Rue La La.CrowdEngineering/healthlibrary. 2. Enter U972 in the search box. Current as of: February 16, 2020?Content Version: 12.8 ?? [employer]. Care instructions adapted under license by your healthcare professional. If you have questions abouta medical condition or this instruction, always ask your healthcare professional. [employer] disclaims any warranty or liability for your [...] can you learn more? 1. Go to https://www.Mimvi/XIPWIRElibrary. 2. Enter X408 in the search box. Current as of: December 08, 2019?Content Version: 12.8 ?? [employer]. Care instructions adapted under license by your healthcare professional. If you have questions abouta medical condition or this instruction, always ask your healthcare professional. [employer] disclaims any warranty or liability for your use of this information. documented in this encounter Progress Notes Nabila Stokes MD - 08/29/2020 2:00 PM CDT [facility] CC: BP and [...] Scant lochia. She is breast feeding/puming for who is overall doing well in the [...] video or phone. Nabila Stokes MD P: [phone] 08/29/2020 2:03 PM Billing based on: Complexity Total time for the visit was 35 minutes including, but not limited to, fhl-oupx-dx-face time spent reviewing records, counseling, and coordination [...] delivered documented in this encounter Care Teams Bromination Equipment Operator Relationship Specialty Start Date End Date Palmira Lim MD PCP - General 05/08/[address] [place] [id number] documented as of this encounter
--- OUTSIDE RECORDS SUMMARY | 2021-12-12 09:52 | XMS_ITS | Encounter Summary ---
:2000 Author Organization [facility] Address [address] [place] [address] Care Team Providers Name Role Phone Palmira Lim MD Primary Care Provider Encounter Details Date Type Department Care Team Description 09/14/2020 Encounter [facility] 393 1 [address] [place], [place] [id number] Social History Tobacco Use Types Packs/Day Years [...] please call sooner with any questions at [phone] Janusz's naked weight today is 10 lb 14 oz Intake at the breast today was 37 ml You are doing a great job, keep it up!! Olga Grigsby RN 09/14/2020 documented in this encounter Miscellaneous Notes Note - Olga Grigsby RN - 09/14/2020 1:00 PM CDT Summary Pt comes in today with concerns about not latching. currently taking bottles of EBM and pt with abundant milk supply. Pt tries latching 1x per day but infant gets very frustrated. born at 36+6 with NICU staty for 19 days for feeding, breathing, and blood sugar issues. with fractured left arm during delivery per [...] becoming frustrated. Nipple shield filled with milk. unable to latch again and bottle of EBM was offered by patient. Total transfer at breast today 37 ml. Discussed keeping breast positive and attempting to latch first at feeding times. Keep at breast as long as he is [...] for Referral: h/o bottle feeding expressed breastmilk Infant Reason for Referral: 35-37 weeks gestation (36+6) Currently : yes History: no Breast Changes: enlargement MATERNAL ASSESSMENT Size Issue, Bilateral: no Shape, Left: round Shape, Right: round Density, Bilateral: filling Density, Bilateral: filling Areola, Bilateral: dense Nipples, Bilateral: everts with stimulation Nipple Conditions, Bilateral: intactSigns/Symptoms of Infection: No Infertility History: no FEEDING ASSESSMENT Maternal Preparation: breast care Maternal Emotional State: assist needed Infant Positioning: clutch/football Signs of Milk Transfer: audible swallow Date of Referral: 09/13/20 Milk Ejection Reflex: present Presence of Pain: no Comfort Measures Before/During Feeding: position adjusted;latch adjusted;maternal position adjusted Feeding Readiness [...] Age:4 wk.o. :08/16/2021 Medical Condition: (pt reports fractured left arm during delivery; f/u with [facility] on Thursday) Mouth Size: average Palate Signs/Symptoms: intact;moist Tongue Symptoms: intact;moist;pink;frenulum marginal Frenulum: tongue elevates < 1/2 way to palate (tongue extends just to gum line; unable to get infant to suck on gloved finger) Gum Symptoms: intact;moist;pink Skin Color: (color per ethnicity) : , bilateral Latch: 1-->repeated attempts, holds nipple in mouth, stimulate to suck Audible Swallowin-->a few with stimulation Type Of Nipple: 2-->everted (after stimulation) Comfort (Breast/Nipple): 2-->soft/nontender Hold (Positioning): 1-->minimal assist, teach one side: mother does other, staff holds Score (less than 7 for 2/more consecutive times, consult Pipe Bowl Paint Trimmer): 7 SUPPLEMENTATION Infant Feeding Plan: Breast Milk Currently : yes Breast Pump Needed: yes documented in this encounter Plan of Treatment Not on filedocumented as of this encounter Visit Diagnoses Not on filedocumented in this encounter Care Teams Prosthetic Aides Teacher Relationship Specialty Start Date End Date Palmira Lim MD PCP - General 05/08/06 [address] [place] [address] documented as of this encounter
--- OUTSIDE RECORDS SUMMARY | 2021-12-12 09:53 | XMS_ITS | Encounter Summary ---
:1999 Author Organization [facility] Address [address] [place] [address] Care Team Providers Name Role Phone Palmira Lim MD Primary Care Provider Reason for Referral Procedure/Equipment (Routine) - Closed Specialty Diagnoses / Procedures Referred By Contact Refer red To Contact Diagnoses Supervision of other high risk , antepartum Lactating mother Nabila Stokes MD Procedures Electric breast pump - purchase (E0603) [address] [place] [address] Referral ID Status Reason Start Date Expiration Date Visits Requ ested Visits Authorized [id number] Closed 07/12/2020 10/11/2021 1 1 Reason for Visit Reason Comments Routine Visit 31w 6d Encounter Details Date Type Department Care Team Description 07/12/2020 Routine [facility] Nabila Stokes Services-MANAGER EMERGENCY MD Maricruz Visit (31w 6d) [address] [address] [address], [address] [place] [address] [phone] Social History Tobacco Use Types Packs/Day Years [...] can you learn more? 1. Go to https://www.1bib/GetSetrary. 2. Enter M001 in the search box. Current as of: December 08, 2019?Content Version: 12.8 ?? MIKESTAR. Care instructions adapted under license by your healthcare professional. If you have questions abouta medical condition or this instruction, always ask your healthcare professional. [employer] disclaims any warranty or liability for your [...] can you learn more? 1. Go to https://www.Kaazing.Dubset Media/healthlibrary. 2. Enter X408 in the search box. Current as of: December 08, 2019?Content Version: 12.8 ?? [employer]KESTAR. Care instructions adapted under license by your healthcare professional. If you have questions abouta medical condition or this instruction, always ask your healthcare professional. [employer] disclaims any warranty or liability for your use of this information. documented in this encounter Progress Notes Nabila Stokes MD - 07/12/2020 11:45 AM CDT [facility] ?? CC: [...] ?- PPx baby Asa through??delivery ?- Primary Machine Assembler Supervisor:?Khoi Quevedo Machine Assembler Supervisor, Dr. Maldonado.?-??06/13 hemoglobin A1c 7.2. ??Continue current insulin regimen as advised byendocrine.?- Growth US:?07/09 EFW 99 percentile, AC 99%, SATYA 30cm. Fundal height sizegreater than dates.?MFM ultrasound??scheduled 08/06/2020 ?- testing: BPP??twice weekly??at 30 wk.?BPP today??10/07 SATYA 22.00 ?- Timing of delivery: Between 97k4p-97u5s for well controlled, 47h2f-65t2l for poorly controlled.? 2.??Hypothyroid. ?--subclinical, on Synthroid [...] in 1-2 weeks Nabila Stokes MD P: [phone] 07/12/2020 11:22 AM Dictation Disclaimer: Some notes are completed with voice-recognition dictation software. Typographical errors may result . Please contact me via goodideazs staff message if you note any errors requiring clarification. Iveth Dean LPN - 07/12/2020 11:45 AM CDT Patient's BPP 10/07. SATYA 27.1 cm. Next appt scheduled07/16/20 @ 12:45pm No NST needed today per Sybil Stokes MD. Patient informed and reminded of upcoming [...] mother documented in this encounter Care Teams Non Profit Job Titles Relationship Specialty Start Date End Date Palmira Lim MD PCP - General 05/08/06 [address] [place], [place] [address] [address] documented as of this encounter
--- OUTSIDE RECORDS SUMMARY | 2021-12-12 09:53 | XMS_ITS | Encounter Summary ---
:1999 Author Organization [facility] Address [address] [place] [address] Care Team Providers Name Role Phone Palmira Lim MD Primary Care Provider Reason for Visit Reason Comments Appointment Questions Encounter Details Date Type Department Care Team Description 08/02/[address] [facility] Shana Hernández MD Appointment Questions Services-STRAW HAT BRIM RAISER OPERATOR [address] [place] [address] [place] [address] [address] [place] [address] [place], [place] [phone] (Wo rk) [address] [phone] Social History Tobacco Use Types Packs/Day Years [...] has an appt following US at 1:45. Customer Care Manager called US and they will try to see her today Pt informed of this and on her way documented in this encounter Plan of Treatment Not on filedocumented as of this encounter Visit Diagnoses Not on filedocumented in this encounter Care Teams Promotions Assistant Sales Marketing Relationship Specialty Start Date End Date Palmira Lim MD PCP - General 05/08/[address] [place] [address] documented as of this encounter
--- OUTSIDE RECORDS SUMMARY | 2021-12-12 09:53 | XMS_ITS | Encounter Summary ---
:1999 Author Organization [employer] Address [address] [place] [address] Care Team Providers Name Role Phone Palmira Lim MD Primary Care Provider Reason for Visit Procedure/Equipment (Routine) - Canceled Specialty Diagnoses / Procedures Referred By Contact Refer red To Contact Diagnoses Pre-existing type 1 diabetes mellitus during in second trimester Denisha Serna, OIL WELL SHOOTER, FIRE MARSHAL Procedures US OB BPP / SATYA Single [id number] [place] [address] Referral ID Status Reason Start Date Expiration Date Visits V isits Requested Authorized [id number] Canceled 06/11/2020 09/10/2021 18 18 Encounter Details Date Type Department Care Team Description 07/19/2020 Ancillary [facility] Denisha Serna, Pre-e xisting type 1 Procedure Services-Ultrasound OIL WELL SHOOTER, FIRE MARSHAL diabetes mellitus [address] [place] [address] [address] in [address], [address] [place], [place] second trimester KAYLYN [place] [address] [phone] Social History Tobacco Use Types Packs/Day Years [...] CDT BPP 8/8, 30 cm. Persistent polyhydramnios vertex.-FIRE MARSHAL documented in this encounter Plan of Treatment [...] NA SATYA results called: NA Denisha Serna OIL WELL SHOOTER, FIRE MARSHAL RAD documented in this encounter Visit Diagnoses Diagnosis Pre-existing type 1 diabetes mellitus du ring in second trimester documented in this encounter Care Teams Adult Neurologist Relationship Specialty Start Date End Date Palmira Lim MD PCP - General 05/08/[address] [place] [address] documented as of this encounter
--- OUTSIDE RECORDS SUMMARY | 2021-12-12 09:53 | XMS_ITS | Encounter Summary ---
:1999 Author Organization [facility] Address [address] [place] [address] Care Team Providers Name Role Phone Palmira Lim MD Primary Care Provider Reason for Visit Procedure/Equipment (Routine) - Canceled Specialty Diagnoses / Procedures Referred By Contact Refer red To Contact Diagnoses Pre-existing type 1 diabetes mellitus during in second trimester Denisha Serna, COPYRIGHT MANAGER, CUSTOMER ENGAGEMENT REPRESENTATIVE Procedures US OB BPP / SATYA Single [id number] [place] [address] Referral ID Status Reason Start Date Expiration Date Visits V isits Requested Authorized [id number] Canceled 06/11/2020 09/10/2021 18 18 Encounter Details Date Type Department Care Team Description 07/16/2020 Ancillary [facility] Denisha Serna, Pre-e xisting type 1 Procedure Services-Ultrasound COPYRIGHT MANAGER, CUSTOMER ENGAGEMENT REPRESENTATIVE diabetes mellitus [address] [place] [address] [address] during in [address], [address] [place], [place] second trimester [place] [phone] [phone] Social History Tobacco Use Types Packs/Day Years [...] CNP - 07/16/2020 12:45 PM CDT BPP 8/8, SATYA 27. Vertex. MS-CUSTOMER ENGAGEMENT REPRESENTATIVE documented in this encounter Plan of [...] consistent with known sue yhydramnios. Denisha Serna COPYRIGHT MANAGER, CUSTOMER ENGAGEMENT REPRESENTATIVE RAD documented in this encounter Visit Diagnoses Diagnosis Pre-existing type 1 diabetes mellitus du ring in second trimester documented in this encounter Care Teams Card Cutter Relationship Specialty Start Date End Date Palmira Lim MD PCP - General 05/08/[address] [place] [address] documented as of this encounter
--- OUTSIDE RECORDS SUMMARY | 2021-12-12 09:53 | XMS_ITS | Encounter Summary ---
:1999 Author Organization [employer] Address [address] [place] [address] Care Team Providers Name Role Phone Palmira Lim MD Primary Care Provider Reason for Visit Procedure/Equipment (Routine) - Incomplete Specialty Diagnoses / Procedures Referred By Contact Refer red To Contact Diagnoses Pre-existing type 1 diabetes mellitus during in second trimester Anita Denis MD Procedures MFM US BPP/NST, SATYA, OB US F/U MFM US OB US F/U 3931 [place], [place] [address] Referral ID Status Reason Start Date Expiration Date Visits V isits Requested Authorized [id number] Incomplete 06/11/2020 09/10/2021 10 10 Encounter Details Date Type Department Care Team Description 08/06/2020 [facility] Anita Denis, Pre-exi sting type 1 Procedure 3931 Maternal diabetes mellitus Medicine 3931 [facility] during in 3931 [facility] second trimester [facility] [address] [place] [address] [phone] Social History Tobacco Use Types Packs/Day Years [...] Name Priority Date/Time Associated Diagnosis Comme nts [facility] US BPP/NST, Routine 08/06/2020 10:53 AM Pre-existing type 1 Results for this SATYA, OB US F/U CDT diabetes mellitus procedur e are in during in the resu lts second trimester section. documented in this encounter Results M US BPP/NST, SATYA, OB US F/U (08/06/2020 10:53 AM CDT) Anatomical Region Laterality Modality Pelvis Ultrasound Study GA Study Date Study TATE Working TATE (Source) W eight (Method) 37w1d 08/06/2020 08/26/2020 09/07/2020 (Final TATE by 378 3 g (Alysia 1984 (BPD, MD/CNJossy) HC, AC, [place]) )37 84 g (Hadlock 1985 ( AC, [place]) )3803 g (Hadloc k 1984 (BPD, AC, [place]) )3718 g (Hadlock 1984 (HC, AC, F L) )4071 g (Hadlock 1983 ( AC) )3873 g (Hadlock 1983 [...] Nabila Serna ??Attending: Kamila Delgadillo MD Patient ??Block Making Machine Operator: Jasmine Vick RDMS , Age: 709/02/2000, 19 y.o. ??GA Prior t o Exam: 35w3d LMP: Patient's last menstrual period was 11/27/2019 (exact date). ??GA by Today's US: 37w1d Pregnancies: ??GA TATE: 35w3d Final TATE by MD/DYLAN Pre- BMI: ??28.70 ??TATE: 09/07/2020 Hx/Indications: Type [...] Nor mal ?? Impression Anita Denis MD RAD LISA documented in this encounter Visit Diagnoses Diagnosis Pre-existing type 1 diabetes mellitus du ring in second trimester documented in this encounter Care Teams Wild Life Photographer Relationship Specialty Start Date End Date Palmira Lim MD PCP - General 05/08/06 [address] [place] [address] documented as of this encounter
--- OUTSIDE RECORDS SUMMARY | 2021-12-12 09:53 | XMS_ITS | Encounter Summary ---
:1999 Author Organization [facility] Address [address] [place] [address] Care Team Providers Name Role Phone Palmira Lim MD Primary Care Provider Reason for Visit Procedure/Equipment (Routine) - Canceled Specialty Diagnoses / Procedures Referred By Contact Refer red To Contact Diagnoses Pre-existing type 1 diabetes mellitus during in second trimester Denisha Serna, SENIOR UX DESIGNER, BRANCH LOGISTICS SUPERVISOR Procedures US OB BPP / SATYA Single [id number] [place] [address] Referral ID Status Reason Start Date Expiration Date Visits V isits Requested Authorized [id number] Canceled 06/11/2020 09/10/2021 18 18 Encounter Details Date Type Department Care Team Description 07/12/2020 Ancillary [facility] Denisha Serna, Pre-e xisting type 1 Procedure Services-Ultrasound SENIOR UX DESIGNER, BRANCH LOGISTICS SUPERVISOR diabetes mellitus [address] [place] [address] [address] during in [address], [address] [place], [place] second trimester [place] [phone] [phone] Social History Tobacco Use Types Packs/Day Years [...] MITZI - 07/12/2020 10:45 AM CDT BPP 8/8, SATYA 27 cm-polyhydramnios. Vertex. MS-BRANCH LOGISTICS SUPERVISOR documented in this encounter Plan of [...] results called: Known polyhydramnios Denisha Serna APRN, BRANCH LOGISTICS SUPERVISOR [facility] documented in this encounter Visit Diagnoses Diagnosis Pre-existing type 1 diabetes mellitus du ring in second trimester documented in this encounter Care Teams Laser Beam Color Scanner Operator Relationship Specialty Start Date End Date Palmira Lim MD PCP - General 05/08/[address] [place] [address] documented as of this encounter
--- OUTSIDE RECORDS SUMMARY | 2021-12-12 09:53 | XMS_ITS | Encounter Summary ---
:1999 Author Organization [employer] Address [address] [place] [address] Care Team Providers Name Role Phone Palmira Lim MD Primary Care Provider Reason for Visit Reason Comments Non-stress Test No nst needed Encounter Details Date Type Department Care Team Description 07/23/2020 Routine [facility] Lyly Albarran, Non-stress Test (No Services-DRUG ENFORCEMENT ADMINISTRATION AGENT nst needed ) [address] [place], [address] [place] [address] [phone] Social History Tobacco Use Types Packs/Day Years Used Date Smoking Tobacco: Former Cigarettes 0.3 1 Smokeless Tobacco: Never Alcohol Use Standard Drinks/Week Comments Not Currently 0 (1 standard drink = 0.6 oz pure alcoho l) on ocass Sex Assigned at Date Recorded Female 09/14/2020 7:23 AM CDT documented as of this encounter Progress Notes Brigette Connor, MICHAEL - 07/23/2020 1:30 PM CDT Patient's BPP [...] Primary documented in this encounter Care Teams Real Estate Specialist Relationship Specialty Start Date End Date Palmira Lim MD PCP - General 05/08/06 [address] [address] documented as of this encounter
--- OUTSIDE RECORDS SUMMARY | 2021-12-12 09:53 | XMS_ITS | Encounter Summary ---
:1999 Author Organization [employer] Address [address] [place] [address] Care Team Providers Name Role Phone Palmira Lim MD Primary Care Provider Reason for Visit Procedure/Equipment (Routine) - Canceled Specialty Diagnoses / Procedures Referred By Contact Refer red To Contact Diagnoses Pre-existing type 1 diabetes mellitus during in second trimester Denisha Serna, TRAFFIC COORDINATOR, LONG TERM CARE PHLEBOTOMIST Procedures US OB BPP / SATYA Single [id number] [place] [address] Referral ID Status Reason Start Date Expiration Date Visits V isits Requested Authorized [id number] Canceled 06/11/2020 09/10/2021 18 18 Encounter Details Date Type Department Care Team Description 08/02/2020 Ancillary [facility] Denisha Serna, Pre-e xisting type 1 Procedure Services-Ultrasound TRAFFIC COORDINATOR, LONG TERM CARE PHLEBOTOMIST diabetes mellitus [address] [place] [address] [address] in [address], [address] [place], [place] second trimester [place] [address] [phone] Social History Tobacco Use Types Packs/Day Years [...] CNP - 08/02/2020 12:45 PM CDT BPP 6/8 (0 for breathing) and read by Dr. Hernández today at apt. MS-LONG TERM CARE PHLEBOTOMIST Denisha Serna APRN, CNP - 08/02/2020 12:45 PM CDT NST today per Dr. Hernández. MS-LONG TERM CARE PHLEBOTOMIST documented in this encounter Plan of Treatment [...] inform ed of BPP results by performing flight crew ordnanceman. SATYA results called: NA Procedure Note Mendoza [...] inform ed of BPP results by performing flight crew ordnanceman. SATYA results called: NA Denisha Serna TRAFFIC COORDINATOR, LONG TERM CARE PHLEBOTOMIST RAD US documented in this encounter Visit Diagnoses Diagnosis Pre-existing type 1 diabetes mellitus du ring in second trimester documented in this encounter Care Teams B2B Sales Professional Relationship Specialty Start Date End Date Palmira Lim MD PCP - General 05/08/[address] [place] [address] documented as of this encounter
--- OUTSIDE RECORDS SUMMARY | 2021-12-12 09:53 | XMS_ITS | Encounter Summary ---
:1999 Author Organization [employer] Address [address] [place] [address] Care Team Providers Name Role Phone Palmira Lim MD Primary Care Provider Reason for Visit Procedure/Equipment (Routine) - Canceled Specialty Diagnoses / Procedures Referred By Contact Refer red To Contact Diagnoses Pre-existing type 1 diabetes mellitus during in second trimester Denisha Serna, CLERICAL MANAGER, E BUSINESS MANAGER Procedures US OB BPP / SATYA Single [id number] [place] [address] Referral ID Status Reason Start Date Expiration Date Visits V isits Requested Authorized [id number] Canceled 06/11/2020 09/10/2021 18 18 Encounter Details Date Type Department Care Team Description 07/23/2020 Ancillary [facility] Denisha Serna, Pre-e xisting type 1 Procedure Services-Ultrasound CLERICAL MANAGER, E BUSINESS MANAGER diabetes mellitus [address] [address] [address] [address] r during in [address], [address] [place], [place] second trimester KAYLYN [place] [phone] [phone] Social History Tobacco Use Types Packs/Day Years [...] PM CDT BPP 8/8, SATYA 29, vertex. MS-E BUSINESS MANAGER documented in this encounter Plan of [...] SATYA results called: NA Denisha Serna APRN, E BUSINESS MANAGER [facility] documented in this encounter Visit Diagnoses Diagnosis Pre-existing type 1 diabetes mellitus du ring in second trimester documented in this encounter Care Teams Glove Presser Relationship Specialty Start Date End Date Palmira Lim MD PCP - General 05/08/[address] [place] [address] documented as of this encounter
--- OUTSIDE RECORDS SUMMARY | 2021-12-12 09:53 | XMS_ITS | Encounter Summary ---
:1999 Author Organization [employer] Address [address] [place] [address] Care Team Providers Name Role Phone Palmira Lim MD Primary Care Provider Reason for Visit Reason Comments Diabetes Encounter Details Date Type Department Care Team Description 07/18/2020 Office Visit Moisés JoelChristiansophia Pre-existin g type 1 diabetes mellitus during in second trimester (Primary Dx); Endocrinology M, KAIN Subclinical hypothyroidism [address] [address] [facility] [phone] [place] [address] Social History Tobacco Use Types [...] Maldonado MBBS - 07/18/2020 2:00 PM CDT [facility] Department of Endocrinology, Diabetes and Metabolism Clinic Note Name: Nabila Serna Cc: Follow up for T1DM. 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 female works in a [employer]. #1 T1DM: Diagnosed in 2015, no known [...] repeat TSH today. Repeat TSH. KAIN Bruce Project Economist Shaji Staton - 07/18/2020 2:00 PM CDT Images from the original note were not included. documented in this encounter Plan of Treatment Not on filedocumented as of this encounter Results (ABNORMAL) Hemoglobin A1C Glycosylated (07/18/2020 2:31 PM CDT) Analysis Performed At Patho logist Time Signature Hemoglobin A1C 6.4 (H) <=5.6 % 07/18/2020 [facility] (Rapid) 4:41 PM CDT LABORATORY Specimen Anatomical Collection Method / Collection Time Recei andrade Time (Source) Location / Volume Laterality Blood Venipuncture / 07/18/2020 2:31 07/18/2020 2:31 Unknown PM CDT PM CDT Narrative [facility] - 07/18/2020 4:41 PM CDT For [...] clinically, contact the laboratory for further direction. Christiansophia Jossy Joel [facility]_1 Performing Organization Address City/[facility]/ZIP Code Phon e Number [facility] [address] [place] [address] TSH (07/18/2020 2:31 PM CDT) athologist Signature TSH, Sensitive 3.11 0.30 - 07/18/2020 [facility] 4.50 7:20 PM CDT LABORATORY uIU/mL Specimen Anatomical Collection Method / Collection Time Recei andrade Time (Source) Location / Volume Laterality Blood Venipuncture / 07/18/2020 2:31 07/18/2020 2:31 Unknown PM CDT PM CDT Fausto Fenton Joel [facility]_1 Performing Organization Address City/[facility]/ZIP Code Phon e Number [facility] [address] [place] [address] (ABNORMAL) BMP - Basic Metabolic Panel (07/18/2020 2:31 PM CDT) [facility] gist Method Time Signature Sodium 139 136 - 145 07/18/2020 [facility] mmol/L 4:37 PM CDT LABORATORY Potassium 3.9 3.5 - 5.1 07/18/2020 [facility] mmol/L 4:37 PM CDT LABORATORY Chloride 108 98 - 109 07/18/2020 [facility] mmol/L 4:37 PM CDT LABORATORY CO2 21 20 - 29 07/18/2020 [facility] mmol/L 4:37 PM CDT LABORATORY Anion Gap 10 7 - 16 07/18/2020 [facility] mmol/L 4:37 PM CDT LABORATORY Calcium 8.9 8.4 - 10.4 07/18/2020 [facility] mg/dL 4:37 PM CDT LABORATORY BUN 5 (L) 7 - 26 07/18/2020 [facility] mg/dL 4:37 PM CDT LABORATORY Creatinine 0.50 (L) 0.55 - 07/18/2020 [facility] 1.02 mg/dL 4:37 PM CDT LABORATORY GFR, Estimated >60 >60 07/18/2020 [facility] mL/min/1.7 4:37 PM CDT LABORATORY 3m2 Glucose 86 70 - 100 07/18/2020 [facility] mg/dL 4:37 PM CDT LABORATORY Comment: The given reference range is fo r the fasting state. Non-fasting reference range for glucose is 70 - 180 mg/dL. Hours Fasting Unknown 07/18/2020 4:37 PM CDT [facility] Specimen Anatomical Collection Method / Collection Time Recei andrade Time (Source) Location / Volume Laterality Blood Venipuncture / 07/18/2020 2:31 07/18/2020 2:31 Unknown PM CDT PM CDT Fausto Maldonado [facility]_1 Performing Organization Address City/State/ZIP Code Phon e Number [facility] [address] [place] [address] documented in this encounter Visit Diagnoses Diagnosis Pre-existing type 1 diabetes mellitus du ring in second trimester - Primary Subclinical hypothyroidism Other specified acquired hypothyroidism documented in this encounter Care Teams Land Planner Relationship Specialty Start Date End Date Palmira Lim MD PCP - General 05/08/06 [address] [address] documented as of this encounter
--- OUTSIDE RECORDS SUMMARY | 2021-12-12 09:53 | XMS_ITS | Encounter Summary ---
:1999 Author Organization [employer] Address [address] [place] [address] Care Team Providers Name Role Phone Palmira Lim MD Primary Care Provider Reason for Visit Procedure/Equipment (Routine) - Canceled Specialty Diagnoses / Procedures Referred By Contact Refer red To Contact Diagnoses Pre-existing type 1 diabetes mellitus during in second trimester Denisha Serna, SALES AGENT, MILK RECEIVER TANK TRUCK Procedures US OB BPP / SATYA Single [id number] [place] [address] Referral ID Status Reason Start Date Expiration Date Visits V isits Requested Authorized [id number] Canceled 06/11/2020 09/10/2021 18 18 Encounter Details Date Type Department Care Team Description 07/26/2020 Ancillary [place] [facility] Denisha Serna, Pre-e xisting type 1 Procedure Services-Ultrasound SALES AGENT, MILK RECEIVER TANK TRUCK diabetes mellitus [address] [place] [address] [address] r during in [address], [address] [place], [place] second trimester KAYLYN [place] [phone] Social History Tobacco Use Types Packs/Day Years [...] CNP - 07/26/2020 12:45 PM CDT BPP 8/8, SATYA 24 cm. Vertex. MS-MILK RECEIVER TANK TRUCK documented in this encounter Plan of Treatment [...] NA SATYA results called: NA Denisha Serna SALES AGENT, MILK RECEIVER TANK TRUCK [facility] documented in this encounter Visit Diagnoses Diagnosis Pre-existing type 1 diabetes mellitus du ring in second trimester documented in this encounter Care Teams Ends Down Checker Relationship Specialty Start Date End Date Palmira Lim MD PCP - General 05/08/[address] [place] [address] documented as of this encounter
--- OUTSIDE RECORDS SUMMARY | 2021-12-12 09:53 | XMS_ITS | Encounter Summary ---
:1999 Author Organization [employer] Address [address] [place] [address] Care Team Providers Name Role Phone Palmira Lim MD Primary Care Provider Reason for Visit Reason Comments Routine Visit Encounter Details Date Type Department Care Team Description 07/26/2020 Routine [facility] Mechelle Meehan, Routine Services-KITCHEN MECHANIC Visit [address] [place] [id number] [place] [address] [address], [address] [place] [address] [phone] Social History Tobacco Use Types Packs/Day Years [...] Serna is a 19 y.o. at 33w6d wga who presents for routine visit. She denies [...] 50 MCG tablet Take 1 tab daily Mon-Thu, and 2 tabs daily Thu and Sundays. [...] soft, non-tender without masses or organomegaly BPP: 8/8, cephalic, SATYA 24.6cm ASSESSMENT/PLAN: 19 y.o. 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 Maldonado. Using Lantus 60U qHS and insulin Novolog 1 unit per 2 gm CHO plus correction 1 per 30 above 120. ?- Baseline HELLP labs??normal. Opthalmology appointment up to date (next in 05/2021).? - PPx baby Asa through??delivery ?- Growth US:?10??EFW 2528g 99%, AC 99%, SATYA??30cm.?- testing: BPP??twice weekly.? - Reviewed at length importance of glucose control, as well as risk of stillbirth, shoulder dystocia (with possible mcfp sequelae), and need for PCS. - Discussed [...] fetus documented in this encounter Care Teams Etl Manager Relationship Specialty Start Date End Date Palmira Lim MD PCP - General 05/08/[address] [place] [id number] documented as of this encounter
--- OUTSIDE RECORDS SUMMARY | 2021-12-12 09:53 | XMS_ITS | Encounter Summary ---
:1999 Author Organization [employer] Address [address] [place] [address] Care Team Providers Name Role Phone Palmira Lim MD Primary Care Provider Reason for Visit Reason Comments Routine Visit 34w6d Encounter Details Date Type Department Care Team Description 08/02/2020 Routine [facility] Shana Hernández MD Routine Services-INSOLE DEPARTMENT WORKER [address] [address] Visit (34w6d) [address], [address] [place] [phone] Social History Tobacco Use Types Packs/Day Years [...] MD - 08/02/2020 1:45 PM CDT [facility] CC: Follow-up care S: Nabila Serna is feeling well today. BG in target range per patient BP 134/82 on last check, has had a [id number] a few days ago, but on recheck [...] DM ?- Follows in endocrinology; [facility] Sweatband Maker, Dr. Maldonado.??Last appointment 07/18, next 08/15. Using [...] (ABNORMAL) Creatinine [CREAT] (08/02/2020 2:30 PM CDT) [facility] Method Time Signature Creatinine 0.50 (L) 0.55 - 08/02/2020 [facility] 1.02 mg/dL 5:28 PM CDT LABORATORY GFR, Estimated >60 >60 08/02/2020 [facility] mL/min/1.7 5:28 PM CDT LABORATORY 3m2 Specimen Anatomical Collection Method / Collection Time Recei andrade Time (Source) Location / Volume Laterality Blood Venipuncture / 08/02/2020 2:30 08/02/2020 2:30 Unknown PM CDT PM CDT Shana Hernández MD LAB_1 Performing Organization Address City/[facility] Code Phon e Number [facility] [id number] [place] [phone] Platelet Count [PLT] (08/02/2020 2:30 PM CDT) athologist Signature Platelets 227 150 - 450 08/02/2020 [facility] x10(9)/L 5:03 PM CDT LABORATORY Specimen Anatomical Collection Method / Collection Time Recei andrade Time (Source) Location / Volume Laterality Blood Venipuncture / 08/02/2020 2:30 08/02/2020 2:30 Unknown PM CDT PM CDT Shana Hernández MD LAB_1 Performing Organization Address [facility] e [facility]ORATORY [address] [place] [phone] AST (SGOT) [AST] (08/02/2020 2:30 PM CDT) P athologist Signature AST (SGOT) 19 10 - 40 U/L 08/02/2020 [facility] 5:28 PM CDT LABORATORY Specimen Anatomical Collection Method / Collection Time Recei andrade Time (Source) Location / Volume Laterality Blood Venipuncture / 08/02/2020 2:30 08/02/2020 2:30 Unknown PM CDT PM CDT Shana Hernández MD LAB_1 Performing Organization Address [facility] Phon e [facility] [address] [place] [address] Alanine Aminotransferase [ALT] (08/02/2020 2:30 PM CDT) P athologist Signature ALT (SGPT) 13 0 - 55 U/L 08/02/2020 [facility] 5:28 PM CDT LABORATORY Specimen Anatomical Collection Method / Collection Time Recei andrade Time (Source) Location / Volume Laterality Blood Venipuncture / 08/02/2020 2:30 08/02/2020 2:30 Unknown PM CDT PM CDT Shana Hernández MD LAB_1 Performing Organization Address City/State/ZIP Code Phon e Number [facility] [address] [place] [phone] (ABNORMAL) TP/Crea Ratio, Urine (08/02/2020 2:30 PM CDT) Analysis Performed At Patho logist Time Signature Total Protein, 23 (H) 0 - 14 08/02/2020 [facility] Urine, Random mg/dL 7:08 PM CDT LABORATORY Creatinine, 60 >20 mg/dL 08/02/2020 [facility] Urine, Random 7:08 PM CDT LABORATORY TP/Creat 0.38 (H) 0.00 - 08/02/2020 [facility] Ratio, Urine 0.20 7:08 PM CDT LABORATORY Random Specimen Anatomical Collection Method Collection Time Receive d Time (Source) Location / / Volume Laterality Urine Non-blood 08/02/2020 2:30 PM 2:30 Collection / CDT PM CDT Unknown Narrative [facility] - 08/02/2020 7:08 P M CDT Low urine creatinine values coupled with low urine protein values can artifactually increase the urine protein/creatinine re sults. Correlate results of ratio with creatinine results. 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 [address] documented as of this encounter
--- OUTSIDE RECORDS SUMMARY | 2021-12-12 09:53 | XMS_ITS | Encounter Summary ---
:1999 Author Organization [employer] Address [address] [place] [address] Care Team Providers Name Role Phone Palmira Lim MD Primary Care Provider Reason for Visit Reason Comments NST,(NON STRESS TEST) None needed Encounter Details Date Type Department Care Team Description 07/16/2020 Routine [facility] Pratibha Patel NST,(NON STRESS Services-PRINT PRODUCTION MANAGER M, DO TEST) (None needed ) [address], [address] [place] [address] [phone] Social History Tobacco Use Types Packs/Day Years Used Date Smoking Tobacco: Former Cigarettes 0.3 1 Smokeless Tobacco: Never Alcohol Use Standard Drinks/Week Comments Not Currently 0 (1 standard drink = 0.6 oz pure alcoho l) on ocass Sex Assigned at Date Recorded Female 09/14/2020 7:23 AM CDT documented as of this encounter Progress Notes Brigette Connor, MICHAEL - 07/16/2020 1:30 PM CDT Patient's BPP 8/8. SATYA 27.0cm. Next appt scheduled 07/19/2020. No NST needed today per Karmen Patel MD. Patient informed and reminded of upcoming appts. Verbalized understanding and all questions answered. documented in this encounter Plan of Treatment Not on filedocumented as of this encounter Visit Diagnoses Diagnosis Supervision of other high risk , antepartum - Primary documented in this encounter Care Teams Tea Tree Farmer Relationship Specialty Start Date End Date Palmira Lim MD PCP - General 05/08/[address] [place] [address] documented as of this encounter
--- OUTSIDE RECORDS SUMMARY | 2021-12-12 09:53 | XMS_ITS | Encounter Summary ---
:1999 Author Organization [employer] Address [address] [place] [address] Care Team Providers Name Role Phone Palmira Lim MD Primary Care Provider Encounter Details Date Type Department Care Team Description 07/18/2020 Lab Visit [facility] Pre-existing type 1 diabetes mellitus during in second trimester; [address] [facility] Subclinical hypothyroidism; [place] [address] Gestational hypertension, th ird trimester [phone] Social History Tobacco Use Types Packs/Day Years [...] resu lts second trimester section. Subclinical hypothyroidism HGB A1C Routine 07/18/2020 2:31 PM Pre-existing type 1 Re sults for this CDT diabetes mellitus procedure are in during in the resu lts second trimester section. Subclinical hypothyroidism ALT [...] (SGPT) 11 0 - 55 U/L 07/19/2020 [facility] 2:52 PM CDT LABORATORY Specimen Anatomical Collection Method / Collection Time Recei andrade Time (Source) Location / Volume Laterality Blood Venipuncture / 07/18/2020 2:31 07/18/2020 2:31 Unknown PM CDT PM CDT Shana Hernández MD LAB_1 Performing Organization Address City/[facility]/ZIP Code Phon e Number [facility] [address] [place], [place] [phone] AST (SGOT) [AST] (07/18/2020 2:31 PM CDT) athologist Signature AST (SGOT) 14 10 - 40 U/L 07/19/2020 [facility] 2:52 PM CDT LABORATORY Specimen Anatomical Collection Method / Collection Time Recei andrade Time (Source) Location / Volume Laterality Blood Venipuncture / 07/18/2020 2:31 07/18/2020 2:31 Unknown PM CDT PM CDT Shana Hernández MD LAB_1 Performing Organization Address City/[facility]/ZIP Code Phon e Number [facility] [address] [place] [phone] (ABNORMAL) Hemoglobin A1C Glycosylated (07/18/2020 2:31 PM CDT) Analysis Performed At Patho logist Time Signature Hemoglobin A1C 6.4 (H) <=5.6 % 07/18/2020 [facility] ([facility]apid) 4:41 PM CDT LABORATORY Specimen Anatomical Collection Method / Collection Time Recei andrade Time (Source) Location / Volume Laterality Blood Venipuncture / 07/18/2020 2:31 07/18/2020 2:31 Unknown PM CDT PM CDT Tessy [facility] - 07/18/2020 4:41 PM CDT For [...] contact the laboratory for further direction. Lilian PATEL LAB_1 Performing Organization Address City/State/ZIP Code Phon e Number [facility] [address] [place] [address] TSH (07/18/2020 2:31 PM CDT) P athologist Signature TSH, Sensitive 3.11 0.30 - 07/18/2020 [facility] 4.50 7:20 PM CDT LABORATORY uIU/mL Specimen Anatomical Collection Method / Collection Time Recei andrade Time (Source) Location / Volume Laterality Blood Venipuncture / 07/18/2020 2:31 07/18/2020 2:31 Unknown PM CDT PM CDT Lilian PATEL LAB_1 Performing Organization Address City/State/ZIP Code Phon e Number [facility] [address] [place] [address] (ABNORMAL) BMP - Basic Metabolic Panel (07/18/2020 2:31 PM CDT) Patholo gist Method Time Signature Sodium 139 136 - 145 07/18/2020 [facility] mmol/L 4:37 PM CDT LABORATORY Potassium 3.9 3.5 - 5.1 07/18/2020 [facility] mmol/L 4:37 PM CDT LABORATORY Chloride 108 98 - 109 07/18/2020 [facility] mmol/L 4:37 PM CDT LABORATORY CO2 21 20 - 29 07/18/2020 [facility] mmol/L 4:37 PM CDT LABORATORY Anion Gap 10 7 - 16 07/18/2020 [facility] mmol/L 4:37 PM CDT LABORATORY Calcium 8.9 8.4 - 10.4 07/18/2020 [facility] mg/dL 4:37 PM CDT LABORATORY BUN 5 (L) 7 - 26 07/18/2020 [facility] mg/dL 4:37 PM CDT LABORATORY Creatinine 0.50 (L) 0.55 - 07/18/2020 [facility] 1.02 mg/dL 4:37 PM CDT LABORATORY GFR, Estimated >60 >60 07/18/2020 [facility] mL/min/1.7 4:37 PM CDT LABORATORY 3m2 Glucose 86 70 - 100 07/18/2020 [facility] mg/dL 4:37 PM CDT LABORATORY Comment: The given reference range is fo r the fasting state. Non-fasting reference range for glucose is 70 - 180 mg/dL. Hours Fasting Unknown 07/18/2020 4:37 PM CDT [facility] Specimen Anatomical Collection Method / Collection Time Recei andrade Time (Source) Location / Volume Laterality Blood Venipuncture / 07/18/2020 2:31 07/18/2020 2:31 Unknown PM CDT PM CDT Lilian FINNEGAN LAB_1 Performing Organization Address City/State/ZIP Code Phon e Number [facility] [address] [place], [place] [phone] documented in this encounter Visit Diagnoses Diagnosis Pre-existing type 1 diabetes mellitus du ring in second trimester Subclinical hypothyroidism Other specified acquired hypothyroidism Gestational hypertension, third trimeste r documented in this encounter Care Teams Soup Mixer Relationship Specialty Start Date End Date Palmira Lim MD PCP - General 05/08/[address] [place], [place] [address] documented as of this encounter
--- OUTSIDE RECORDS SUMMARY | 2021-12-12 09:53 | XMS_ITS | Encounter Summary ---
:1999 Author Organization [employer] Address [address] [place] [address] Care Team Providers Name Role Phone Palmira Lim MD Primary Care Provider Reason for Visit Reason Comments Routine Visit [id number] Encounter Details Date Type Department Care Team Description 07/19/2020 Routine [facility] Shana Hernández MD Routine Services-PICKLING MACHINE OPERATOR [address] Ginger Gilbert Visit (32w6d) [address], [address] [place] [phone] Social History Tobacco Use Types Packs/Day Years [...] is feeling well today. 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 Clients are now able to [...] DM ?- Follows in endocrinology; Khoi Quevedo Media Arts Professor, Dr. Maldonado.??Last appointment 07/18. Using Lantus 60U [...] TP/Crea Ratio, Urine (07/19/2020 1:55 PM CDT) [facility] Total Protein, 20 (H) 0 - 14 07/19/2020 [facility] Urine, Random mg/dL 6:47 PM CDT LABORATORY Creatinine, 154 >20 mg/dL 07/19/2020 [facility] Urine, Random 6:47 PM CDT LABORATORY TP/Creat 0.13 0.00 - 07/19/2020 [facility] Ratio, Urine 0.20 6:47 PM CDT LABORATORY Random Specimen Anatomical Collection Method Collection Time Receive d Time (Source) Location / / Volume Laterality Urine Non-blood 07/19/2020 1:55 PM 1:55 Collection / CDT PM CDT Unknown Narrative [facility] - 07/19/2020 6:47 P M CDT Low urine creatinine values coupled with low urine protein values can artifactually increase the urine protein/creatinine re sults. Correlate results of ratio with creatinine results. Shana Hernández MD LAB_1 Performing Organization Address City/State/ZIP Code [facility] e Number [facility] [address] [place] [address] Platelet Count [PLT] (07/19/2020 1:55 PM CDT) [facility] Platelets 273 150 - 450 07/19/2020 [facility] x10(9)/L 3:39 PM CDT LABORATORY Specimen Anatomical Collection Method / Collection Time Recei andrade Time (Source) Location / Volume Laterality Blood Venipuncture / 07/19/2020 1:55 07/19/2020 1:55 Unknown PM CDT PM CDT Shana Hernández MD LAB_1 Performing Organization Address City/State/[facility] Code Phon e Number [facility] [address] [place] [address] AST (SGOT) [AST] (07/18/2020 2:31 PM CDT) [facility] AST (SGOT) 14 10 - 40 U/L 07/19/2020 [facility] 2:52 PM CDT LABORATORY Specimen Anatomical Collection Method / Collection Time Recei andrade Time (Source) Location / Volume Laterality Blood Venipuncture / 07/18/2020 2:31 07/18/2020 2:31 Unknown PM CDT PM CDT Shana Hernández MD LAB_1 Performing Organization Address [facility] Code Phon e Number [facility] [address] [place], [place] [phone] Alanine Aminotransferase [ALT] (07/18/2020 2:31 PM CDT) athologist Signature ALT (SGPT) 11 0 - 55 U/L 07/19/2020 [facility] 2:52 PM CDT LABORATORY Specimen Anatomical Collection Method / Collection Time Recei andrade Time (Source) Location / Volume Laterality Blood Venipuncture / 07/18/2020 2:31 07/18/2020 2:31 Unknown PM CDT PM CDT Shana Hernández MD LAB_1 Performing Organization Address City/[facility] Phon e Number [facility] [address] [place] [address] documented in this encounter Visit Diagnoses Diagnosis Supervision of other high risk , antepartum - Primary Pre-existing type 1 diabetes mellitus du ring in second trimester Maternal thyroid dysfunction, antepartum (HRC) Thyroid dysfunction, antepartum Hypothyroidism, unspecified type (HRC) Herpes simplex vulvovaginitis (HRC) Gestational hypertension, third trimeste r documented in this encounter Care Teams Medical Economics Consultant Relationship Specialty Start Date End Date Palmira Lim MD PCP - General 05/08/[address] [place] [address] documented as of this encounter
--- OUTSIDE RECORDS SUMMARY | 2021-12-12 09:53 | XMS_ITS | Encounter Summary ---
:1999 Author Organization [employer] Address [address] [place] [address] Care Team Providers Name Role Phone Palmira Lim MD Primary Care Provider Encounter Details Date Type Department Care Team Description 07/19/[address] [facility] hypertension, Services-[facility] third trimester [address] [facility], [facility] [address] [place] [address] Social History Tobacco Use [...] Hernández MD - 07/19/2020 1:35 PM CDT Hi Nabila, Your recent lab results show your kidney and liver function remain normal. With these labs you have gestational hypertension, not preeclampsia. As I mentioned we will treat these the same way and continue your weekly visits and monitoring as scheduled for your diabetes. Please contact our clinicat [phone] or via [facility] if you have any questions. Thanks, Shana [...] Protein, 20 (H) 0 - 14 07/19/2020 [facility] Urine, Random mg/dL 6:47 PM CDT LABORATORY Creatinine, 154 >20 mg/dL 07/19/2020 [facility] Urine, Random 6:47 PM CDT LABORATORY TP/Creat 0.13 0.00 - 07/19/2020 [facility] Ratio, Urine 0.20 6:47 PM CDT LABORATORY Random Specimen Anatomical Collection Method Collection Time Receive d Time (Source) Location / / Volume Laterality Urine Non-blood 07/19/2020 1:55 PM 1:55 Collection / CDT PM CDT Unknown Narrative [facility] - 07/19/2020 6:47 P M CDT Low urine creatinine values coupled with low urine protein values can artifactually increase the urine protein/creatinine re sults. Correlate results of ratio with creatinine results. Shana Hernández MD LAB_1 Performing Organization Address City/State/ZIP Code Phon e Number [facility] [address] [place] [address] Platelet Count [PLT] (07/19/2020 1:55 PM CDT) athologist Signature Platelets 273 150 - 450 07/19/2020 [facility] x10(9)/L 3:39 PM CDT LABORATORY Specimen Anatomical Collection Method / Collection Time Recei andrade Time (Source) Location / Volume Laterality Blood Venipuncture / 07/19/2020 1:55 07/19/2020 1:55 Unknown PM CDT PM CDT Shana Hernández MD LAB_1 Performing Organization Address City/State/ZIP Code Phon e Number [facility] [address] [place] [address] documented in this encounter Visit Diagnoses Diagnosis Gestational hypertension, third trimeste r documented in this encounter Care Teams Coach Relationship Specialty Start Date End Date Palmira Lim MD PCP - General 05/08/06 [address] [place] [place], [place] [address] documented as of this encounter
--- OUTSIDE RECORDS SUMMARY | 2021-12-12 09:53 | XMS_ITS | Encounter Summary ---
:1999 Author Organization [employer] Address [address] [place] [address] Care Team Providers Name Role Phone Palmira Lim MD Primary Care Provider Encounter Details Date Type Department Care Team Description 08/02/2020 Lab Visit [facility] Gestation al hypertension, Services-[facility] third trimester [address] [facility], [facility] [address] [place] [address] Social History Tobacco Use [...] MD - 08/02/2020 2:30 PM CDT Reece Nabila, Your recent lab results show you do [...] worsening kidney, liver, or plateletfunction or the [facility] doctor recommends earlier delivery. Please contact our clinic at [phone] clyde Sullivan if you have any questions. Thanks, [...] Signature Creatinine 0.50 (L) 0.55 - 08/02/2020 [facility] 1.02 mg/dL 5:28 PM CDT LABORATORY GFR, Estimated >60 >60 08/02/2020 [place] mL/min/1.7 5:28 PM CDT LABORATORY 3m2 Specimen Anatomical Collection Method / Collection Time Recei andrade Time (Source) Location / Volume Laterality Blood Venipuncture / 08/02/2020 2:30 08/02/2020 2:30 Unknown PM CDT PM CDT Shana Hernández MD LAB_1 Performing Organization Address City/State/ZIP Code Phon e Number [facility] [address] [place] [address] Platelet Count [PLT] (08/02/2020 2:30 PM CDT) P athologist Signature Platelets 227 150 - 450 08/02/2020 [place] x10(9)/L 5:03 PM CDT LABORATORY Specimen Anatomical Collection Method / Collection Time Recei andrade Time (Source) Location / Volume Laterality Blood Venipuncture / 08/02/2020 2:30 08/02/2020 2:30 Unknown PM CDT PM CDT Shana Hernández MD LAB_1 Performing Organization Address [facility]/ZIP Code Phon e Number [facility] [address] [place] [phone] AST (SGOT) [AST] (08/02/2020 2:30 PM CDT) athologist Signature AST (SGOT) 19 10 - 40 U/L 08/02/2020 [place] 5:28 PM CDT LABORATORY Specimen Anatomical Collection Method / Collection Time Recei andrade Time (Source) Location / Volume Laterality Blood Venipuncture / 08/02/2020 2:30 08/02/2020 2:30 Unknown PM CDT PM CDT Shana Hernández MD LAB_1 Performing Organization Address [facility] Phon e Number [facility] [address] [place] [phone] Alanine Aminotransferase [ALT] (08/02/2020 2:30 PM CDT) P athologist Signature ALT (SGPT) 13 0 - 55 U/L 08/02/2020 [place] 5:28 PM CDT LABORATORY Specimen Anatomical Collection Method / Collection Time Recei andrade Time (Source) Location / Volume Laterality Blood Venipuncture / 08/02/2020 2:30 08/02/2020 2:30 Unknown PM CDT PM CDT Shana Hernández MD LAB_1 Performing Organization Address [facility] Phon e Number [facility] [address] [place] [phone] (ABNORMAL) TP/Crea Ratio, Urine (08/02/2020 2:30 PM CDT) Analysis Performed At Patho logist Time Signature Total Protein, 23 (H) 0 - 14 08/02/2020 [facility] Urine, Random mg/dL 7:08 PM CDT LABORATORY Creatinine, 60 >20 mg/dL 08/02/2020 [facility] Urine, Random 7:08 PM CDT LABORATORY TP/Creat 0.38 (H) 0.00 - 08/02/2020 [facility] Ratio, Urine 0.20 7:08 PM CDT LABORATORY Random Specimen Anatomical Collection Method Collection Time Receive d Time (Source) Location / / Volume Laterality Urine Non-blood 08/02/2020 2:30 PM 2:30 Collection / CDT PM CDT Unknown Narrative [facility] - 08/02/2020 7:08 P M CDT Low urine creatinine values coupled with low urine protein values can artifactually increase the urine protein/creatinine re sults. Correlate results of ratio with creatinine results. Shana Hernández MD LAB_1 Performing Organization Address City/State/ZIP Code Phon e Number [facility] [address] [place] [address] documented in this encounter Visit Diagnoses Diagnosis Gestational hypertension, third trimeste r documented in this encounter Care Teams Medical Collector Relationship Specialty Start Date End Date Palmira Lim MD PCP - General 05/08/[address] [place], [place] [address] documented as of this encounter
--- OUTSIDE RECORDS SUMMARY | 2021-12-12 09:53 | XMS_ITS | Encounter Summary ---
:1999 Author Organization [employer] Address [address] [place] [address] Care Team Providers Name Role Phone Palmira Lim MD Primary Care Provider Encounter Details Date Type Department Care Team Description 07/09/2020 [facility] [address]illo, Insulin controlled Maternal gestational diabetes Medicine [address] mellitus (GDM) in [address] [facility] third trimester [place], [place] (Primary Dx) [place] [id number] [phone] Social History Tobacco Use Types Packs/Day Years [...] documented in this encounter Care Teams Electrical Superintendent Relationship Specialty Start Date End Date Palmira Lim MD PCP - General 05/08/[address] [place], [place] [id number] documented as of this encounter
--- OUTSIDE RECORDS SUMMARY | 2021-12-12 09:54 | XMS_ITS | Encounter Summary ---
:1999 Author Organization [employer] Address [address] [place] [address] Care Team Providers Name Role Phone Palmira Lim MD Primary Care Provider Reason for Visit Procedure/Equipment (Routine) - Canceled Specialty Diagnoses / Procedures Referred By Contact Refer red To Contact Diagnoses Pre-existing type 1 diabetes mellitus during in second trimester Denisha Serna, CHROME CLEANER, MOBILE DESIGNER Procedures US OB BPP / SATYA Single [id number] [place] [address] Referral ID Status Reason Start Date Expiration Date Visits V isits Requested Authorized [id number] Canceled 06/11/2020 09/10/2021 18 18 Encounter Details Date Type Department Care Team Description 07/05/2020 Ancillary [facility] Denisha Serna, Pre-e xisting type 1 Procedure Services-Ultrasound CHROME CLEANER, MOBILE DESIGNER diabetes mellitus [address] [place] [address] [address] r [address] in [address], [address] [place], [place] second trimester [place] [address] [phone] Social History Tobacco Use Types Packs/Day Years [...] CNP - 07/05/2020 12:45 PM CDT BPP 8/, SATYA 22 cm, vertex MS-MOBILE DESIGNER documented in this encounter Plan of Treatment [...] NA SATYA results called: NA Denisha Serna CHROME CLEANER, MOBILE DESIGNER [facility] documented in this encounter Visit Diagnoses Diagnosis Pre-existing type 1 diabetes mellitus du ring in second trimester documented in this encounter Care Teams Tipple Engineer Relationship Specialty Start Date End Date Palmira Lim MD PCP - General 05/08/06 [address] [address] documented as of this encounter
--- OUTSIDE RECORDS SUMMARY | 2021-12-12 09:54 | XMS_ITS | Encounter Summary ---
:1999 Author Organization [employer] Address [address] [place] [address] Care Team Providers Name Role Phone Palmira Lim MD Primary Care Provider Reason for Visit Reason Comments Follow-up Encounter Details Date Type Department Care Team Description 06/12/2020 Telephone [facility] Denisha Serna APRN, Follow-up Services-CELL EFFICIENCY SUPERVISOR [address], [place] [address] [place] [address] [place] [address] [phone] Social History Tobacco Use Types Packs/Day Years [...] from Denisha Serna APRN, CNP sent at 06/11/2020 10:41 PM CDT ----- [...] 10:11 PM CDT To: Denisha Serna APRN, GEOPHYSICAL SUPPORT SPECIALIST documented in this encounter Plan of Treatment Not on filedocumented as of this encounter Visit Diagnoses Not on filedocumented in this encounter Care Teams Electric Golf Cart Repairers Relationship Specialty Start Date End Date Palmira Lim MD PCP - General 05/08/06 [address] [address] documented as of this encounter
--- OUTSIDE RECORDS SUMMARY | 2021-12-12 09:54 | XMS_ITS | Encounter Summary ---
:1999 Author Organization [employer] Address [address] [place] [address] Care Team Providers Name Role Phone Palmira Lim MD Primary Care Provider Encounter Details Date Type Department Care Team Description 06/22/2020 Lab Visit [facility] Pre-exist ing type 1 Services-[facility] diabetes mellitus during [address] [facility] in second 420 [place] [address] Social History Tobacco Use Types Packs/Day Years Used Date Smoking Tobacco: Former Cigarettes 0.3 1 Smokeless Tobacco: Never Alcohol Use Standard Drinks/Week Comments Not Currently 0 (1 standard drink = 0.6 oz pure alcoho l) on ocass Sex Assigned at Date Recorded Female 09/14/2020 7:23 AM CDT documented as of this encounter Progress Notes Denisha Serna APRN, CNP - 06/22/2020 1:05 PM CDT Hemoglobin 10.4. Please advised patient to continue to use vitamins with iron. Start an iron supplement called Slow Fe every other day as well. Please use it with a Vitamin C food source for improved absorption. MS-DATA COLLECTION ASSOCIATE Tiffany Meyer LPN - 06/22/2020 1:05 PM [...] mellitus procedure [facility] second trimester section. TREPONEMA SCREEN Routine 06/22/2020 1:08 PM Pre-existing type 1 Results for this CDT diabetes mellitus procedure are in during [facility] second trimester section. CREATININE / GFR Routine 06/22/2020 1:08 PM Pre-existing type 1 Results for this CDT diabetes mellitus procedure are in during in [facility] second trimester section. COMPLETE BLOOD Routine 06/22/2020 1:08 PM Pre-existing type 1 Results for this COUNT-NO DIFF CDT diabetes mellitus procedure are in during in [facility] second trimester section. ALT (SGPT) Routine 06/22/2020 1:08 PM Pre-existing type 1 Re sults for this CDT diabetes mellitus procedure are in during in [facility] second trimester section. AST Routine 06/22/2020 1:08 PM Pre-existing type 1 Re sults for this CDT diabetes mellitus procedure are in during in [facility] second trimester section. documented in this encounter Results (ABNORMAL) TP/Crea Ratio, Urine (06/22/2020 1:11 PM CDT) P athologist Signature Total Protein, 20 (H) 0 - 14 06/22/2020 [facility] Urine, Random mg/dL 4:20 PM CDT LABORATORY Creatinine, 219 >20 mg/dL 06/22/2020 [facility] Urine, Random 4:20 PM CDT LABORATORY TP/Creat 0.09 0.00 - 06/22/2020 [facility] Ratio, Urine 0.20 4:20 PM CDT LABORATORY Random Specimen Anatomical Collection Method Collection Time Receive d Time (Source) Location / / Volume Laterality Urine Non-blood 06/22/2020 1:11 PM 1:11 Collection / CDT PM CDT Unknown Narrative [facility] - 06/22/2020 4:20 P M CDT Low urine creatinine values coupled with low urine protein values can artifactually increase the urine protein/creatinine re sults. Correlate results of ratio with creatinine results. Denisha Fenton Daphne NICK CNP LAB_1 Performing Organization Address City/State/ZIP [facility] Phon e Number [facility] [address] [place] [phone] Treponema Screen (06/22/2020 1:08 PM CDT) [facility] Method Time Signature Treponema Screen 0.035 {s_co_ratio 06/22/2020 [facility] Result } 4:13 PM CDT LABORATORY Treponema Screen Non Non 06/22/2020 [facility] Interpretation Reactive Reactive 4:13 PM CDT LABORATORY Specimen Anatomical Collection Method / Collection Time Recei andrade Time (Source) Location / Volume Laterality Blood Venipuncture / 06/22/2020 1:08 06/22/2020 1:08 Unknown PM CDT PM CDT Denisha Fenton Daphne NICK CNP LAB_1 Performing Organization Address City/[facility]/ZIP [facility] Phon e Number [facility] [address] [place] [phone] (ABNORMAL) Creatinine / GFR (06/22/2020 1:08 PM CDT) [employer] Method Time Signature Creatinine 0.50 (L) 0.55 - 06/22/2020 [facility] 1.02 mg/dL 4:52 PM CDT LABORATORY GFR, Estimated >60 >60 06/22/2020 [place] mL/min/1.7 4:52 PM CDT LABORATORY 3m2 Specimen Anatomical Collection Method / Collection Time Recei andrade Time (Source) Location / Volume Laterality Blood Venipuncture / 06/22/2020 1:08 06/22/2020 1:08 Unknown PM CDT PM CDT Denisha Fenton Daphne NICK CNP LAB_1 Performing Organization Address [facility] Code Phon e Number [facility] [address] [place] [phone] (ABNORMAL) Complete Blood Count-No Diff (06/22/2020 1:08 PM CDT) [facility] gist Method Time Signature WBC 6.9 3.5 - 10.5 06/22/2020 [place] x10(9)/L 2:51 PM CDT LABORATORY RBC 3.87 (L) 3.90 - 06/22/2020 [place] 5.03 2:51 PM CDT LABORATORY x10(12)/L Hemoglobin 10.4 (L) 12.0 - 06/22/2020 [place] 15.5 g/dL 2:51 PM CDT LABORATORY HCT 32.0 (L) 34.9 - 06/22/2020 [place] 44.5 % 2:51 PM CDT LABORATORY MCV 82.7 80.0 - 06/22/2020 [place] 100.0 fL 2:51 PM CDT LABORATORY MCH 26.9 (L) 27.6 - 06/22/2020 [place] 33.3 pg 2:51 PM CDT LABORATORY MCHC 32.5 31.5 - 06/22/2020 [place] 35.2 g/dL 2:51 PM CDT LABORATORY RDW 12.7 11.9 - 06/22/2020 [place] 15.5 % 2:51 PM CDT LABORATORY Platelets 322 150 - 450 06/22/2020 [place] x10(9)/L 2:51 PM CDT LABORATORY Automated NRBC 0 <=0 /100 06/22/2020 [place] WBC 2:51 PM CDT LABORATORY Specimen Anatomical Collection Method / Collection Time Recei andrade Time (Source) Location / Volume Laterality Blood Venipuncture / 06/22/2020 1:08 06/22/2020 1:08 Unknown PM CDT PM CDT Denisha Fenton Daphne NICK CNP LAB_1 Performing Organization Address City/[facility]/ZIP Code Phon e Number [facility] [address] [place], [place] [phone] AST (06/22/2020 1:08 PM CDT) athologist Signature AST (SGOT) 14 10 - 40 U/L 06/22/2020 [place] 4:52 PM CDT LABORATORY Specimen Anatomical Collection Method / Collection Time Recei andrade Time (Source) Location / Volume Laterality Blood Venipuncture / 06/22/2020 1:08 06/22/2020 1:08 Unknown PM CDT PM CDT Denisha Fenton Daphne NICK CNP LAB_1 Performing Organization Address [facility] e Jemma [facility] [address] [place] [phone] ALT (SGPT) (06/22/2020 1:08 PM CDT) athologist Signature ALT (SGPT) <10 0 - 55 U/L 06/22/2020 [place] 4:52 PM CDT LABORATORY Specimen Anatomical Collection Method / Collection Time Recei andrade Time (Source) Location / Volume Laterality Blood Venipuncture / 06/22/2020 1:08 06/22/2020 1:08 Unknown PM CDT PM CDT Denisha Fenton Daphne NICK CNP LAB_1 Performing Organization Address [facility] risa [place] [facility] [address] [place] [address] documented in this encounter Visit Diagnoses Diagnosis Pre-existing type 1 diabetes mellitus du ring in second trimester documented in this encounter Care Teams Log Deck Tender Relationship Specialty Start Date End Date Palmira Lim MD PCP - General 05/08/[address] [place] [address] documented as of this encounter
--- OUTSIDE RECORDS SUMMARY | 2021-12-12 09:54 | XMS_ITS | Encounter Summary ---
:1999 Author Organization [employer] Address [address] [place] [address] Care Team Providers Name Role Phone Palmira Lim MD Primary Care Provider Encounter Details Date Type Department Care Team Description 06/13/2020 Lab Visit [facility] Type 1 diabetes mellitus com plicating , antepartum, second trimester; [address] [facility] Subclinical hypothyroidism; [place] [address] Pre-existing type 1 diabetes mellitus during in second trimester [phone] Social History Tobacco Use Types Packs/Day Years [...] encounter Results TSH (06/13/2020 2:38 PM CDT) P athologist Signature TSH, Sensitive 2.44 0.30 - 06/13/2020 [facility] 4.50 7:07 PM CDT LABORATORY uIU/mL Specimen Anatomical Collection Method / Collection Time Recei andrade Time (Source) Location / Volume Laterality Blood Venipuncture / 06/13/2020 2:38 06/13/2020 2:38 Unknown PM CDT PM CDT Lilian FINNEGAN LAB_1 Performing Organization Address City/State/ZIP Code Phon e Number [facility] [address] [place] [address] documented in this encounter Visit Diagnoses Diagnosis Type 1 diabetes mellitus complicating pr egnancy, antepartum, second trimester Subclinical hypothyroidism Other specified acquired hypothyroidism Pre-existing type 1 diabetes mellitus du ring in second trimester documented in this encounter Care Teams Lens Grinder Rough Relationship Specialty Start Date End Date Palmira Lim MD PCP - General 05/08/06 [address] [place], [place] [address] documented as of this encounter
--- OUTSIDE RECORDS SUMMARY | 2021-12-12 09:54 | XMS_ITS | Encounter Summary ---
:1999 Author Organization [employer] Address [address] [place] [address] Care Team Providers Name Role Phone Palmira Lim MD Primary Care Provider Reason for Visit Reason Comments Routine Visit Encounter Details Date Type Department Care Team Description 07/05/2020 Routine [facility] Pratibha Patel Routine Services-BUDGET AND [place] [address] [address] [place], [address] [place] [address] [phone] Social History Tobacco Use Types Packs/Day Years [...] is available to assist you by calling [phone]. Your Guide to - https://user-Silent Power.cld.bz/HhsaosSgtgxyld-Xntf-Pkemt-vb-g-Nrivene- Preparing for Childbirth - https://user-Silent Power.cld.bz/VemlptRgurgpuw-Pyt-Qylm-of-Motherhood Taking Care of You and Your [place] - https://user-[employer] Power.cld.bz/YqojlyOldgwtvg-C-Hhl-Beginning documented in this encounter Progress Notes Pratibha Patel DO - 07/05/2020 2:20 PM CDT [facility] Ob[facility]ne[facility] CC: Follow-up [...] Asa from 12-16 weeks through??delivery - Primary Torpedo Man:?Miladis Quevedo Torpedo Man, Dr. Maldonado.?? -??06/13 hemoglobin A1c 7.2. ??Continue current insulin regimen as advised by endocrine.?? - Growth US:?06/21 EFW 99 percentile, AC 99%, SATYA 26. Fundal height size greater than dates.?MFM ultrasound??scheduled 07/09/2020 - testing: BPP??twice weekly??at 30 wk. ??BPP today 10/07 SATYA 22.00 - Timing of delivery: Between 52k9p-00o8m for well controlled, 12h9t-17b2r for poorly controlled.? 2. Hypothyroid. --subclinical. ??Synthroid 50 mcg daily??+2 on weekends,??per endo.?06/11 TSH 2.44 ?? 3. General herpes. ?? [...] (HRC) documented in this encounter Care Teams Inspector Process Relationship Specialty Start Date End Date Palmira Lim MD PCP - General 05/08/06 [address] [place] [address] documented as of this encounter
--- OUTSIDE RECORDS SUMMARY | 2021-12-12 09:54 | XMS_ITS | Encounter Summary ---
:1999 Author Organization [employer] Address [address] [place] [address] Care Team Providers Name Role Phone Palmira Lim MD Primary Care Provider Reason for Visit Reason Comments CONSULT Encounter Details Date Type Department Care Team Description 06/11/2020 Procedure Visit [facility] 3931 Dusty Denis MD CONSULT Maternal Medic ine 3931 [facility] 3931 [place] [address] [phone] Social History Tobacco Use Types Packs/Day Years Used Date Smoking Tobacco: Former Cigarettes 0.3 1 Smokeless Tobacco: Never Alcohol Use Standard Drinks/Week Comments Not Currently 0 (1 standard drink = 0.6 oz pure alcoho l) on ocass Sex Assigned at Date Recorded Female 09/14/2020 7:23 AM CDT documented as of this encounter Progress Notes Anita Denis MD - 06/11/2020 3:30 PM CDT [facility] ULTR[facility] AND CONSULTATION DATE OF VISIT: [...] as poor delivery outcomes, particularly maternal and infant traumatic injury. Although the prediction of macrosomia [...] Primary documented in this encounter Care Teams Field Technician Relationship Specialty Start Date End Date Palmira Lim MD PCP - General 05/08/06 [address] [address] documented as of this encounter
--- OUTSIDE RECORDS SUMMARY | 2021-12-12 09:54 | XMS_ITS | Encounter Summary ---
:1999 Author Organization [employer] Address [address] [place] [address] Care Team Providers Name Role Phone Palmira Lim MD Primary Care Provider Reason for Visit Procedure/Equipment (Routine) - Canceled Specialty Diagnoses / Procedures Referred By Contact Refer red To Contact Diagnoses Pre-existing type 1 diabetes mellitus during in second trimester Denisha Serna, SUPERVISOR PICKING CREW, SENIOR ACCOUNTANT CPA Procedures US OB BPP / SATYA Single [phone] [place] [phone] Referral ID Status Reason Start Date Expiration Date Visits V isits Requested Authorized [id number] Canceled 06/11/2020 09/10/2021 18 18 Encounter Details Date Type Department Care Team Description 06/28/2020 Ancillary [facility] Denisha Serna, Pre-e xisting type 1 Procedure Services-Ultrasound SUPERVISOR PICKING CREW, SENIOR ACCOUNTANT CPA diabetes mellitus [address] [place] [address] [address], [address] [place], [place] second trimester [place] [address] [phone] Social History Tobacco Use Types Packs/Day Years [...] AM CDT BPP 10/07. SATYA 25, polyhydramnios. MS-SENIOR ACCOUNTANT CPA documented in this encounter Plan of Treatment [...] N/A SATYA results called: N/A Denisha Serna SUPERVISOR PICKING CREW, SENIOR ACCOUNTANT CPA RAD documented in this encounter Visit Diagnoses Diagnosis Pre-existing type 1 diabetes mellitus du ring in second trimester documented in this encounter Care Teams Shot Polisher And Inspector Relationship Specialty Start Date End Date Palmira Lim MD PCP - General 05/08/[address] [address] documented as of this encounter
--- OUTSIDE RECORDS SUMMARY | 2021-12-12 09:54 | XMS_ITS | Encounter Summary ---
:1999 Author Organization [facility] Address [address] [place] [address] Care Team Providers Name Role Phone Palmira Lim MD Primary Care Provider Reason for Visit Procedure/Equipment (Routine) - Canceled Specialty Diagnoses / Procedures Referred By Contact Refer red To Contact Diagnoses Pre-existing type 1 diabetes mellitus during in second trimester Denisha Serna, SUPERVISOR TELEPHONE ANSWERING SERVICE, LAB TECHNOLOGIST Procedures US OB BPP / SATYA Single [id number] [place] [id number] Referral ID Status Reason Start Date Expiration Date Visits V isits Requested Authorized [id number] Canceled 06/11/2020 09/10/2021 18 18 Encounter Details Date Type Department Care Team Description 06/25/2020 Ancillary [facility] Denisha Serna, Pre-e xisting type 1 Procedure Services-Ultrasound SUPERVISOR TELEPHONE ANSWERING SERVICE, LAB TECHNOLOGIST diabetes mellitus [address] [place] [address] [address] r during in [address], [address] [place], [place] second trimester [place] [address] [phone] Social History Tobacco Use Types Packs/Day Years [...] 1:30 PM CDT BPP 8/8, SATYA 24. MS-LAB TECHNOLOGIST documented in this encounter Plan of Treatment [...] SATYA results called: NA Denisha Serna APRN, LAB TECHNOLOGIST [facility] documented in this encounter Visit Diagnoses Diagnosis Pre-existing type 1 diabetes mellitus du ring in second trimester documented in this encounter Care Teams Authorization Rep Relationship Specialty Start Date End Date Palmira Lim MD PCP - General 05/08/[address] [address] documented as of this encounter
--- OUTSIDE RECORDS SUMMARY | 2021-12-12 09:54 | XMS_ITS | Encounter Summary ---
:1999 Author Organization [employer] Address [address] [place] [address] Care Team Providers Name Role Phone Palmira Lim MD Primary Care Provider Reason for Visit Reason Comments Routine Visit Encounter Details Date Type Department Care Team Description 06/28/2020 Routine [facility] Pratibha Patel Routine Services-[place] [address] [place], [address] [place] [address] [phone] Social History Tobacco Use Types Packs/Day Years [...] is available to assist you by calling [phone]. Your Guide to - https://user-Cardoz.cld.bz/YohsarNevhurak-Aehv-Sewln-az-y-Exyxmeo- Preparing for Childbirth - https://user-Cardoz.cld.bz/WybtkdJltaahok-Lfp-Wswf-of-Motherhood Taking Care of You and Your - https://user-Cardoz.cld.bz/EnnejhJyaorkkg-Y-Yxb-Beginning documented in this encounter Progress Notes Pratibha Patel DO - 06/28/2020 10:00 AM CDT [facility] CC: Follow-up [...] Asa from 12-16 weeks through??delivery - Primary Solar System Installer:?Miladis Quevedo Solar System Installer, Dr. Maldonado.?? - 06/13 hemoglobin A1c 7.2. Continue current insulin regimen as advised by endocrine. - Growth US: 06/21 EFW 99 percentile, AC 99%, SATYA 26. Fundal height size greater than dates. M ultrasound scheduled 07/09/2020 - testing: BPP twice weekly at 30 wk. BPP today 10/07 SATYA 25 - Timing of delivery: Between 54i6y-21q3y for well controlled, 04n6y-87u9q for poorly controlled. ?? 2. Hypothyroid. --subclinical. [...] (HRC) documented in this encounter Care Teams Director Specialty Relationship Specialty Start Date End Date Palmira Lim MD PCP - General 05/08/06 [address], [place] [address] documented as of this encounter
--- OUTSIDE RECORDS SUMMARY | 2021-12-12 09:54 | XMS_ITS | Encounter Summary ---
:1999 Author Organization [employer] Address [address] [place] [address] Care Team Providers Name Role Phone Palmira Lim MD Primary Care Provider Reason for Visit Reason Comments RESULTS, TEST Encounter Details Date Type Department Care Team Description 06/22/2020 Telephone [facility] Denisha Serna APRN, RESULTS, TEST Services-MANAGER CLIENT SERVICE [address], [address] [place] [address] [address] [place] [address] [place] [address] [phone] Social History Tobacco Use Types Packs/Day Years [...] labs normal. Sent message to My Chart. MS-PERSONAL COMPANION Tiffany Meyer LPN - 06/22/2020 3:46 PM [...] Vitamin C food source for improved absorption. MS-PERSONAL COMPANION documented in this encounter Plan of Treatment Not on filedocumented as of this encounter Visit Diagnoses Not on filedocumented in this encounter Care Teams Molder Automobile Carpets Relationship Specialty Start Date End Date Palmira Lim MD PCP - General 05/08/[address] [place] [address] documented as of this encounter
--- OUTSIDE RECORDS SUMMARY | 2021-12-12 09:54 | XMS_ITS | Encounter Summary ---
:1999 Author Organization [employer] Address [address] [place] [address] Care Team Providers Name Role Phone Palmira Lim MD Primary Care Provider Reason for Visit Reason Comments NST,(NON STRESS TEST) Encounter Details Date Type Department Care Team Description 07/02/2020 Routine [facility] Shana Hernández MD NST,(NON STRESS Services-INSPECTOR HAIRSPRING [address] TEST) [address], [address] [place] [phone] Social History Tobacco Use Types Packs/Day Years [...] - 07/02/2020 1:30 PM CDT Patient's BPP 8/8. SATYA 27.59 cm. Next appt scheduled 07/05/2020. No NST needed today per Dr. Hernández. Patient informed and reminded of upcoming appts. Verbalized understanding and all questions answered. documented in this encounter Plan of Treatment Not on filedocumented as of this encounter Visit Diagnoses Diagnosis Pre-existing type 1 diabetes mellitus du ring in second trimester - Primary documented in this encounter Care Teams School Lunch Monitor Relationship Specialty Start Date End Date Palmira Lim MD PCP - General 05/08/[address] [place] [address] documented as of this encounter
--- OUTSIDE RECORDS SUMMARY | 2021-12-12 09:54 | XMS_ITS | Encounter Summary ---
:1999 Author Organization [employer] Address [address] [place] [address] Care Team Providers Name Role Phone Palmira Lim MD Primary Care Provider Encounter Details Date Type Department Care Team Description 06/11/2020 Notes/Orders [facility] Denisha Serna, Pre-e xisting type 1 Services-HOME DEMONSTRATOR CANVAS GOODS FABRICATOR, SEAM HAMMERER diabetes mellitus [address] [place], [place] [address] (Primary Dx) [address] [phone] Social History Tobacco Use Types Packs/Day Years [...] Primary documented in this encounter Care Teams Manager Lean Relationship Specialty Start Date End Date Palmira Lim MD PCP - General 05/08/[address] [place] [address] documented as of this encounter
--- OUTSIDE RECORDS SUMMARY | 2021-12-12 09:54 | XMS_ITS | Encounter Summary ---
:1999 Author Organization [employer] Address [address] [place] [address] Care Team Providers Name Role Phone Palmira Lim MD Primary Care Provider Reason for Visit Reason Comments CONSULT Encounter Details Date Type Department Care Team Description 07/09/2020 Procedure Visit Specialty Center 3931 Me liz Delgadillo MD CONSULT Maternal Medic ine 3931 [facility] 3931 [place] [id number] [phone] Social History Tobacco Use Types Packs/Day Years Used Date Smoking Tobacco: Former Cigarettes 0.3 1 Smokeless Tobacco: Never Alcohol Use Standard Drinks/Week Comments Not Currently 0 (1 standard drink = 0.6 oz pure alcoho l) on ocass Sex Assigned at Date Recorded Female 09/14/2020 7:23 AM CDT documented as of this encounter Progress Notes Kamila Delgadillo MD - 07/09/2020 11:15 AM CDT [facility] ULTRASOUND AND BRIEF CONSULTATION DATE OF VISIT: 07/09/20 IMPRESSIONS: 1) Intrauterine at 31 weeks 3 days gestational age 2) No anomalies noted 3) Macrosomia is suspected with estimated weight at 99%tile 4) The amniotic fluid volume is increased, 31cm 5) No evidence of placenta previa 6) BP 10/07 RECOMMENDATIONS: -Please see separate consult note [...] from 07/05. [place]. [id number] billed. documented in this encounter Plan of Treatment Not on filedocumented as of this encounter Visit Diagnoses Diagnosis Polyhydramnios in third trimester compli cation, single or unspecified fetus - Primary Macrosomia Exceptionally large baby relating to meir g gestation documented in this encounter Care Teams Beamer Operator Relationship Specialty Start Date End Date Palmira Lim MD PCP - General 05/08/[address] [place] [address] documented as of this encounter
--- OUTSIDE RECORDS SUMMARY | 2021-12-12 09:54 | XMS_ITS | Encounter Summary ---
:1999 Author Organization [employer] Address [address] [place] [address] Care Team Providers Name Role Phone Palmira Lim MD Primary Care Provider Reason for Visit Reason Comments Routine Visit Encounter Details Date Type Department Care Team Description 06/22/2020 Routine [facility] Trever Belle MD [address] [place] [address] Routine Services-JEWEL STAKER Denisha Serna, DISTRIBUTOR PUBLICATIONS, FORENSIC NURSE [address] [place] [address] Visit [address] [facility], [address] [place] [address] Social History Tobacco Use Types [...] in this encounter Progress Notes Denisha Serna, DISTRIBUTOR PUBLICATIONS, FORENSIC NURSE - 06/22/2020 11:30 AM CDT [facility] CC: Follow-up care S: Nabila Serna is feeling well today. She is accompanied by FOB. Her last appointment was at 20 weeks. Denies LOF or vaginal bleeding. No cramping. Positive movement. We reviewed the following [facility] ultrasounds and plans noted below. 04/25 [...] previa 8) Complex, subamniotic cystic structure measuring 34a03nm ?? RECOMMENDATIONS: -Please see separate consult note for additional counseling -Monthly growth US starting at 28 weeks -Twice weekly testing at 32 weeks due to type 1 DM (once a week is acceptable during the COVID19 pandemic if DM is well controlled and no other complications arise) -Continue daily baby aspirin for preeclampsia prevention. Stop at delivery 06/11/2020 MFM growth ultrasound IMPRESSIONS: 1) Intrauterine at 27 [...] type 1 diabetes and hypothyroid management by Laborer Cheesemaking, Dr. Maldonado. 06/13 endocrine appointment #1 T1DM: [...] from changing to day shift instead of policy cancellation clerk, I will write a letter stating that. [...] y.o. at 29w0d by first-trimester ultrasound per [facility] presenting for follow-up care. Care: - [...] Asa from 12-16 weeks through??term - Primary Laborer Cheesemaking:?Khoi Quevedo Laborer Cheesemaking, Dr. Maldonado.?? - 06/13 hemoglobin A1c 7.2. Continue current insulin regimen as advised by endocrine. - Growth US: 06/21 EFW 99 percentile, AC 99%, SATYA 26. Fundal height size greater than dates. [facility] ultrasound scheduled 07/09/2020 - testing: BPP twice weekly at 30 wk. Advised to schedule today and start next week. - Timing of delivery: Between 12z4j-84t9k for well controlled, 14m5u-32k3j for poorly controlled. Hypothyroid. --subclinical. ??Synthroid 50 [...] 1 week for BPP and MD visit. JUN Dictation Disclaimer: Some notes are completed with voice-recognition dictation software. Typographical errors may result . Please contact me via [employer] staff message if you note any errors requiring clarification. documented in this encounter Plan of Treatment Not on filedocumented as of this encounter Results (ABNORMAL) TP/Crea Ratio, Urine (06/22/2020 1:11 PM CDT) athologist Signature Total Protein, 20 (H) 0 - 14 06/22/2020 [facility] Urine, Random mg/dL 4:20 PM CDT LABOR[facility]ORY Creatinine, 219 >20 mg/dL 06/22/2020 [facility] Urine, Random 4:20 PM CDT [facility] TP/Creat 0.09 0.00 - 06/22/2020 [facility] Ratio, Urine 0.20 4:20 PM CDT [facility] Random Specimen Anatomical Collection Method Collection Time Receive d Time (Source) Location / / Volume Laterality Urine Non-blood 06/22/2020 1:11 PM 1:11 Collection / CDT PM CDT Unknown Narrative [facility] - 06/22/2020 4:20 P M CDT Low urine creatinine values coupled with low urine protein values can artifactually increase the urine protein/creatinine re sults. Correlate results of ratio with creatinine results. Denisha Serna APRN, CNP LAB_1 Performing Organization Address City/State/ZIP Code Phon e Number [facility] [address] [place] [address] Treponema Screen (06/22/2020 1:08 PM CDT) [facility] Method Time Signature Treponema Screen 0.035 {s_co_ratio 06/22/2020 [facility] Result } 4:13 PM CDT [facility] Treponema Screen Non Non 06/22/2020 [facility] Interpretation Reactive Reactive 4:13 PM CDT [facility] Specimen Anatomical Collection Method / Collection Time Recei andrade Time (Source) Location / Volume Laterality Blood Venipuncture / 06/22/2020 1:08 06/22/2020 1:08 Unknown PM CDT PM CDT Denisha Fenton Daphne NICK CNP LAB_1 Performing Organization Address City/State/ZIP Code Phon e Number [facility] [address] [place] [address] (ABNORMAL) Creatinine / GFR (06/22/2020 1:08 PM CDT) [facility] Method Time Signature Creatinine 0.50 (L) 0.55 - 06/22/2020 [place] 1.02 mg/dL 4:52 PM CDT LABOR[facility]ORY GFR, Estimated >60 >60 06/22/2020 [place] mL/min/1.7 4:52 PM CDT LABOR[facility]ORY 3m2 Specimen Anatomical Collection Method / Collection Time Recei andrade Time (Source) Location / Volume Laterality Blood Venipuncture / 06/22/2020 1:08 06/22/2020 1:08 Unknown PM CDT PM CDT Denisha Fenton Daphne NICK CNP LAB_1 Performing Organization Address City/[facility]/ZIP Code Phon e Number [facility] [facility] [address] [place] [address] (ABNORMAL) Complete Blood Count-No Diff (06/22/2020 1:08 PM CDT) [facility] Method Time Signature WBC 6.9 3.5 - 10.5 06/22/2020 [place] x10(9)/L 2:51 PM CDT LABORATORY RBC 3.87 (L) 3.90 - 06/22/2020 [place] 5.03 2:51 PM CDT LAB[facility] x10(12)/L Hemoglobin 10.4 (L) 12.0 - 06/22/2020 [place] 15.5 g/dL 2:51 PM CDT LABOR[facility]ORY HCT 32.0 (L) 34.9 - 06/22/2020 [place] 44.5 % 2:51 PM CDT LABOR[facility]ORY MCV 82.7 80.0 - 06/22/2020 [place] 100.0 fL 2:51 PM CDT LAB[facility] MCH 26.9 (L) 27.6 - 06/22/2020 [place] 33.3 pg 2:51 PM CDT LABOR[facility]ORY MCHC 32.5 31.5 - 06/22/2020 [place] 35.2 g/dL 2:51 PM CDT LABOR[facility]ORY RDW 12.7 11.9 - 06/22/2020 [place] 15.5 % 2:51 PM CDT LAB[facility]ORY Platelets 322 150 - 450 06/22/2020 [place] x10(9)/L 2:51 PM CDT LABORATORY Automated NRBC 0 <=0 /100 06/22/2020 [place] WBC 2:51 PM CDT LAB[facility] Specimen Anatomical Collection Method / Collection Time Recei andrade Time (Source) Location / Volume Laterality Blood Venipuncture / 06/22/2020 1:08 06/22/2020 1:08 Unknown PM CDT PM CDT Denisha Fenton Daphne NICK CNP LAB_1 Performing Organization Address City/[facility] e Jemma [place] [facility] [address] [place] [address] AST (06/22/2020 1:08 PM CDT) athologist Signature AST (SGOT) 14 10 - 40 U/L 06/22/2020 [place] 4:52 PM CDT LABORATORY Specimen Anatomical Collection Method / Collection Time Recei andrade Time (Source) Location / Volume Laterality Blood Venipuncture / 06/22/2020 1:08 06/22/2020 1:08 Unknown PM CDT PM CDT Denisha Fenton Daphne NICK CNP LAB_1 Performing Organization Address City/State/[facility] risa [place] [facility] [address] [place] [address] ALT (SGPT) (06/22/2020 1:08 PM CDT) P athologist Signature ALT (SGPT) <10 0 - 55 U/L 06/22/2020 [place] 4:52 PM CDT LABORATORY Specimen Anatomical Collection Method / Collection Time Recei andrade Time (Source) Location / Volume Laterality Blood Venipuncture / 06/22/2020 1:08 06/22/2020 1:08 Unknown PM CDT PM CDT Denisha Fenton Daphne DISTRIBUTOR PUBLICATIONS, MITZI LAB_1 Performing Organization Address City/State/[facility] Code Phon e Number [facility] [facility] [address] [place] [address] documented in this encounter Visit Diagnoses Diagnosis Supervision of other high risk , antepartum - Primary Pre-existing type 1 diabetes mellitus du ring in second trimester Maternal thyroid dysfunction, antepartum (HRC) Thyroid dysfunction, antepartum History of pulmonary embolism Personal history of pulmonary embolism Genital herpes simplex, unspecified site ([facility]C) documented in this encounter Care Teams Diesel Tractor Operator Relationship Specialty Start Date End Date Palmira Lim MD PCP - General 05/08/[address] [place] [address] documented as of this encounter
--- OUTSIDE RECORDS SUMMARY | 2021-12-12 09:54 | XMS_ITS | Encounter Summary ---
:1999 Author Organization [employer] Address [address] [place] [address] Care Team Providers Name Role Phone Palmira Lim MD Primary Care Provider Reason for Visit Reason Comments NST,(NON STRESS TEST) Encounter Details Date Type Department Care Team Description 06/25/2020 Routine [facility] Pratibha Patel NST,(NON STRESS Services-DIRECTOR RETAIL BRAND DEVELOPMENT M, DO TEST) [address] [place], [address] [place] [address] [phone] Social History Tobacco Use Types Packs/Day Years [...] - 06/25/2020 2:00 PM CDT Patient's BPP 10/07. SATYA 24.2cm. Next appt scheduled 06/28/2020 No NST needed today per Karmen Patel MD.Patient informed and reminded of upcoming appts. Verbalized understanding and all questions answered. documented in this encounter Nursing Notes Tiffany Meyer LPN - 06/25/2020 2:00 PM CDT Patient's BPP 10/07. SATYA 24.2 cm. Next appt scheduled 06/28/2020. No NST needed today per Karmen Patel MD. Patient informed and reminded of upcoming appts. Verbalized understanding and all questions answered. documented in this encounter Plan of Treatment Not on filedocumented as of this encounter Visit Diagnoses Diagnosis Pre-existing type 1 diabetes mellitus du ring in second trimester - Primary documented in this encounter Care Teams Engineering Lecturer Relationship Specialty Start Date End Date Palmira Lim MD PCP - General 05/08/[address] [place] [address] documented as of this encounter
--- OUTSIDE RECORDS SUMMARY | 2021-12-12 09:54 | XMS_ITS | Encounter Summary ---
:1999 Author Organization [employer] Address [address] [place] [address] Care Team Providers Name Role Phone Palmira Lim MD Primary Care Provider Reason for Visit Procedure/Equipment (Routine) - Incomplete Specialty Diagnoses / Procedures Referred By Contact Refer red To Contact Diagnoses Pre-existing type 1 diabetes mellitus during in second trimester Anita Denis MD Procedures MFM US OB US F/U MFM US BPP/NST, SATYA, OB US F/U MFM US OB US F/U 3931 [place], [place] [address] Referral ID Status Reason Start Date Expiration Date Visits V isits Requested Authorized [id number] Incomplete 06/11/2020 09/10/2021 10 10 Encounter Details Date Type Department Care Team Description 07/09/2020 [facility] Anita Denis, Pre-exi sting type 1 Procedure 3931 Maternal MD diabetes mellitus Medicine 3931 [facility] during in 3931 [facility] second trimester [facility] [address] [place] [address] [phone] Social History Tobacco Use Types Packs/Day Years [...] Date/Time Associated Diagnosis Comme nts MFM US OB US F/U Routine 07/09/2020 11:06 AM Pre-existing type 1 Results for this CDT diabetes mellitus procedure are in during in the resu lts second trimester section. documented in this encounter Results MFM US OB US F/U (07/09/2020 11:06 AM CDT) Anatomical Region Laterality Modality Pelvis Ultrasound Study [place] Study Date Study TATE Working TATE (Source) W eight (Method) 33w3d 07/09/2020 08/24/2020 09/07/2020 (Final TATE by 252 8 g (Hadcheryl 1984 (BPD, MD/CNJossy) HC, [place], [place]) )25 23 g (Hadlock 1985 ( [place], [place]) )2549 g (Hadloc k 1984 (BPD, [place], [place]) )2497 g (Hadlock 1984 (HC, AC, F L) )3040 g (Hadlock 1983 ( AC) )2802 g (Hadlock 1983 [...] Q2 10.57 cm SATYA Q3 7.24 cm ASTYA Q4 6.15 cm SATYA 31.24 cm FHR [...] Nabila Serna ??Attending: Kamila Delgadillo MD Patient ??Traffic Analyst: April Nagy RDMS , Age: 709/02/2000, 19 [...] Nor mal ? Impression Anita Denis MD [facility] documented in this encounter Visit Diagnoses Diagnosis Pre-existing type 1 diabetes mellitus du ring in second trimester documented in this encounter Care Teams Casting Inspector Relationship Specialty Start Date End Date Palmira Lim MD PCP - General 05/08/[address] [place] [address] documented as of this encounter
--- OUTSIDE RECORDS SUMMARY | 2021-12-12 09:54 | XMS_ITS | Encounter Summary ---
:1999 Author Organization [employer] Address [address] [place] [address] Care Team Providers Name Role Phone Palmira Lim MD Primary Care Provider Reason for Visit Reason Comments Diabetes Encounter Details Date Type Department Care Team Description 06/13/2020 Office Visit Lilian Jamil Type 1 diab etes mellitus complicating , antepartum, second trimester (Primary Dx); Endocrinology M, KAIN Subclinical hypothyroidism; [address] Pre-existing type 1 diabetes mellitus during in [place] [address] [facility] [phone] [place], [place] [id number] Social History Tobacco Use Types Packs/Day Years [...] from the original note were not included. Lliian Maldonado MBBS - 06/13/2020 2:00 PM CDT [facility] Department of Endocrinology, Diabetes and Metabolism Clinic Note Name: Nabila Serna Cc: Follow up for T1DM. 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 #1 T1DM: Diagnosed in 2015, no known [...] changing to day shift instead of night clerk, I will write a letter stating that. RTC in 4 weeks with me. #2 Hypothyroidism: Continue levothyroxine 50 mcg daily Thu-Thu, and 100 mcg Thu and Sundays, repeat TSH today. KAIN Bruce Client Technical Specialist documented in this encounter Plan of Treatment [...] Signature TSH, Sensitive 2.44 0.30 - 06/13/2020 [facility] 4.50 7:07 PM CDT LABORATORY uIU/mL Specimen Anatomical Collection Method / Collection Time Recei andrade Time (Source) Location / Volume Laterality Blood Venipuncture / 06/13/2020 2:38 06/13/2020 2:38 Unknown PM CDT PM CDT Lilian [facility]_1 Performing Organization Address City/State/ZIP Code Phon e Number [facility] [address] [place] [address] (ABNORMAL) POCT glycosylated hemoglobin (Hb A1C) (06/13/2020 2:20 PM CDT) athologist Signature Hemoglobin A1C 7.2 (A) 5.6 % POCT (Rapid) Cartridge Lot# [id number] POCT Specimen (Source) Anatomical Collection Method Collection Time Re ceived Time Location / / Volume Laterality Blood 06/13/2020 2:20 PM CDT Lilian [facility] ET POINT OF CARE TEST ENTER/ EDIT ORDERABLES Performing Organization Address City/[facility]/ZIP Code Phon e Number POCT documented in this encounter Visit Diagnoses Diagnosis Type 1 diabetes mellitus complicating pr egnancy, antepartum, second trimester - Primary Subclinical hypothyroidism Other specified acquired hypothyroidism Pre-existing type 1 diabetes mellitus du ring in second trimester documented in this encounter Care Teams Admissions Recruiter Relationship Specialty Start Date End Date Palmira Lim MD PCP - General 05/08/06 [address] [place] [address] documented as of this encounter
--- OUTSIDE RECORDS SUMMARY | 2021-12-12 09:54 | XMS_ITS | Encounter Summary ---
:1999 Author Organization [employer] Address [address] [place] [address] Care Team Providers Name Role Phone Palmira Lim MD Primary Care Provider Reason for Visit Procedure/Equipment (Routine) - Canceled Specialty Diagnoses / Procedures Referred By Contact Refer red To Contact Diagnoses Pre-existing type 1 diabetes mellitus during in second trimester Denisha Serna, STUDENT LIAISON OFFICER, UNDER CUTTING MACHINE OPERATOR Procedures US OB BPP / SATYA Single [address] [place] [address] Referral ID Status Reason Start Date Expiration Date Visits V isits Requested Authorized [id number] Canceled 06/11/2020 09/10/2021 18 18 Encounter Details Date Type Department Care Team Description 07/02/2020 Ancillary [facility] Denisha Serna, Pre-e xisting type 1 Procedure Services-Ultrasound STUDENT LIAISON OFFICER, UNDER CUTTING MACHINE OPERATOR diabetes mellitus [address] [place] [address] [address], [address] [place], [place] second trimester [place] [address] [phone] Social History Tobacco Use Types Packs/Day Years Used Date Smoking Tobacco: Former Cigarettes 0.3 1 Smokeless Tobacco: Never Alcohol Use Standard Drinks/Week Comments Not Currently 0 (1 standard drink = 0.6 oz pure alcoho l) on ocass Sex Assigned at Date Recorded Female 09/14/2020 7:23 AM CDT documented as of this encounter Progress Notes Denisha Serna, SANDOVAL, MITZI - 07/02/2020 12:45 PM CDT BPP 8/8, SATYA 27, polyhydramnios. Vertex. MS-UNDER CUTTING MACHINE OPERATOR documented in this encounter [...] NA SATYA results called: NA Denisha Serna STUDENT LIAISON OFFICER, UNDER CUTTING MACHINE OPERATOR RAD documented in this encounter Visit Diagnoses Diagnosis Pre-existing type 1 diabetes mellitus du ring in second trimester documented in this encounter Care Teams Public Relations Counselor Relationship Specialty Start Date End Date Palmira Lim MD PCP - General 05/08/[address] [place] [address] documented as of this encounter
--- OUTSIDE RECORDS SUMMARY | 2021-12-12 09:55 | XMS_ITS | Encounter Summary ---
:1999 Author Organization [employer] Address [address] [place] [address] Care Team Providers Name Role Phone Palmira Lim MD Primary Care Provider Reason for Visit Procedure/Equipment (Routine) - Incomplete Specialty Diagnoses / Procedures Referred By Contact Refer red To Contact Diagnoses Pre-existing type 1 diabetes mellitus during in second trimester Ying Belle MD Procedures MFM US Level 2, Echo MF US Level 2 [address] [place], [place] [address] Referral ID Status Reason Start Date Expiration Date Visits V isits Requested Authorized [id number] Incomplete 03/26/2020 06/25/2021 10 10 Encounter Details Date Type Department Care Team Description 04/25/2020 [facility] Ying Belle, Pre-e xisting type 1 Procedure 3931 Maternal MD diabetes mellitus Medicine [address] during in [address] [place] [address]. [facility] second trimester [facility] [address] [place] [address] [phone] Social History Tobacco Use Types Packs/Day Years [...] Name Priority Date/Time Associated Diagnosis Comme nts [facility] US LEVEL 2, Routine 04/25/2020 10:10 AM Pre-existing type 1 Results for this ECHO TRANSIT MIX OPERATOR diabetes mellitus procedure are in during in the resu lts second trimester section. documented in this encounter Results [facility] US Level 2, Echo (04/25/2020 10:10 AM TRANSIT MIX OPERATOR) P athologist Signature Cervical Length 3.72 cm EXTERNAL RESULTS Anatomical Region Laterality Modality Pelvis Ultrasound Study GA Study Date Study TATE Working TATE (Source) W eight (Method) 21w3d 04/25/2020 2020 2020 (Last Menstrual 4 66 g (Hadlock 1984 (BPD, Period) HC, [place], [place]) )47 7 g (Hadlock 1985 ( [place], [place]) )473 g (Hadlock 1984 [...] by Kamila Delgadillo MD on 1:32 PM TRANSIT MIX OPERATOR Table formatting from the original resul t was not included. Patient Name: Nabila Serna ??Attendi ng: Kamila Delgadillo MD Patient ??Qa Auditor: Otilia Lewis [facility] , Age: 709/02/2000, 19 y.o. ??[place] Prior [...] View appears normal Orbits appears normal ??Cardiac [place] addi ears normal Lenses appears normal ??Cardiac [...] a ppears normal Pleural Effusion absent ??Short [place] of Ventricles appears normal Extremities ??Short [place] of Great Vessel s appears normal Right [...] previa 8) Complex, subamniotic cystic structure measuring [id number] RECOMMENDATIONS: -Please see separate consult note for [...] trimester documented in this encounter Care Teams Automobile Brakes Bonder Relationship Specialty Start Date End Date Palmira Lim MD PCP - General 05/08/06 [address], [place] [address] documented as of this encounter
--- OUTSIDE RECORDS SUMMARY | 2021-12-12 09:55 | XMS_ITS | Encounter Summary ---
:1999 Author Organization [employer] Address [address] [place] [address] Care Team Providers Name Role Phone Palmira Lim MD Primary Care Provider Encounter Details Date Type Department Care Team Description 03/28/2020 Lab Visit [facility] Subclinical hypothyroidism [address] [place] [address] Social History Tobacco Use Types [...] Sundays, repeat blood work in 3 weeks. SORTER PROCESSOR documented in this encounter Plan of Treatment Not on filedocumented as of this encounter Procedures Procedure Name Priority Date/Time Associated Diagnosis Comme nts TSH, SENSITIVE Routine 03/28/2020 3:16 PM Subclinical Results for this FLAT SORTER PROCESSOR hypothyroidism procedure are in the results section. documented in this encounter Results (ABNORMAL) TSH (03/28/2020 3:16 PM FLAT SORTER PROCESSOR) Analysis Performed At [facility] Time Signature TSH, Sensitive 5.45 (H) 0.30 - 03/28/2020 [facility] 4.50 7:03 PM FLAT SORTER PROCESSOR LABORATORY uIU/mL Specimen Anatomical Collection Method / Collection Time Recei andrade Time (Source) Location / Volume Laterality Blood Venipuncture / 03/28/2020 3:16 03/28/2020 3:16 Unknown PM FLAT SORTER PROCESSOR PM FLAT SORTER PROCESSOR Lilian [facility]_1 Performing Organization Address City/State/ZIP Code Phon e Number [facility] [address] [place] [address] documented in this encounter Visit Diagnoses Diagnosis Subclinical hypothyroidism Other specified acquired hypothyroidism documented in this encounter Care Teams Director Of Testing Relationship Specialty Start Date End Date Palmira Lim MD PCP - General 05/08/06 [address] [place], [place] [address] documented as of this encounter
--- OUTSIDE RECORDS SUMMARY | 2021-12-12 09:55 | XMS_ITS | Encounter Summary ---
:1999 Author Organization [employer] Address [address] [place] [address] Care Team Providers Name Role Phone Palmira Lim MD Primary Care Provider Reason for Referral Procedure/Equipment (Routine) - Incomplete Specialty Diagnoses / Procedures Referred By Contact Refer red To Contact Diagnoses Pre-existing type 1 diabetes mellitus during in second trimester Ying Belle MD Procedures MFM US Level 2, Echo MFM US Level 2 [address] [place], [place] [address] Referral ID Status Reason Start Date Expiration Date Visits V isits Requested Authorized [id number] Incomplete 03/26/2020 06/25/2021 10 10 ING TECHNOLOGIST Reason for Visit Reason Comments Routine Visit 16w5d Encounter Details Date Type Department Care Team Description 03/26/2020 Routine [facility] Ying Belle, Routine Services-LAPIDARY APPRENTICE Visit (16w5d) [address] [address] [facility] [address] [place] [id number] Social History Tobacco Use Types Packs/Day Years [...] Comments Blood Pressure 128/66 03/26/2020 3:29 PM IMAGING TECHNOLOGIST Pulse 100 03/26/2020 3:29 PM IMAGING TECHNOLOGIST Temperature - - Respiratory Rate - - Oxygen Saturation - - Inhaled Oxygen Concentration - - Weight 77.2 kg (170 lb 3.2 oz) 03/26/2020 3:29 PM IMAGING TECHNOLOGIST Height - - Body Mass Index 29.21 03/08/2020 8:29 PM IMAGING TECHNOLOGIST documented in this encounter Progress Notes Ying [...] be supportive. Says parents are supportive. Deals [place] at [employer] [place]. Does get frequent breaks. ROS: Consistent with [...] from 12-16 weeks through term - Primary Harpsichord Maker: Miladis Quevedo Harpsichord Maker, Dr. Maldonado. Highly advised that patient keep all appointments as scheduled. - Growth US: Every 4 weeks starting at 28 weeks - testing: BPP weekly at 32 weeks for well controlled, 28 weeks for poorly controlled - Timing of delivery: Between [id number]-[id number] for well controlled, [id number]-38n0u for poorly controlled Hx PE 2018. Genetic [...] not have DHEA in her vitamin, to coal picker some Baxter 3 fatty acids 1000 mg daily. She [...] outline of cares with patient, and documentation. ING TECHNOLOGIST documented in this encounter Plan of Treatment Not on filedocumented as of this encounter Results MFM US Level 2, Echo (04/25/2020 10:10 AM IMAGING TECHNOLOGIST) P athologist Signature Cervical Length 3.72 cm EXTERNAL RESULTS Anatomical Region Laterality Modality Pelvis Ultrasound Study GA Study Date Study TATE Working TATE (Source) W eight (Method) 21w3d 04/25/2020 2020 2020 (Last Menstrual 4 66 g (Hadlock 1985 (BPD, Period) HC, [place], [place]) )47 7 [...] by Kamila Delgadillo MD on 1:32 PM IMAGING TECHNOLOGIST Table formatting from the original resul t was not included. Patient Name: Nabila Serna ??Attendi ng: Kamila Delgadillo MD Patient ??Special Delivery Carrier: Otilia Lewis RDMS , Age: 709/02/2000, 19 [...] View appears normal Orbits appears normal ??Cardiac [place] addi ears normal Lenses appears normal ??Cardiac [...] a ppears normal Pleural Effusion absent ??Short [place] of Ventricles appears normal Extremities ??Short [place] of Great Vessel s appears normal Right [...] previa 8) Complex, subamniotic cystic structure measuring [id number] RECOMMENDATIONS: -Please see separate consult note for [...] trimester documented in this encounter Care Teams Bench Assembler Relationship Specialty Start Date End Date Palmira Lim MD PCP - General 05/08/[address] [place] [address] documented as of this encounter
--- OUTSIDE RECORDS SUMMARY | 2021-12-12 09:55 | XMS_ITS | Encounter Summary ---
:1999 Author Organization [employer] Address [address] [place] [address] Care Team Providers Name Role Phone Palmira Lim MD Primary Care Provider Encounter Details Date Type Department Care Team Description 05/16/2020 Lab Visit [facility] Type 1 diabetes mellitus com plicating , antepartum, second trimester; [address] [facility] Subclinical hypothyroidism; [place] [address] Pre-existing type 1 diabetes mellitus during in second trimester [phone] Social History Tobacco Use Types Packs/Day Years [...] Signature TSH, Sensitive 2.91 0.30 - 05/16/2020 [facility] 4.50 7:04 PM CDT LABORATORY uIU/mL Specimen Anatomical Collection Method / Collection Time Recei andrade Time (Source) Location / Volume Laterality Blood Venipuncture / 05/16/2020 3:38 05/16/2020 3:38 Unknown PM CDT PM CDT Lilian [facility]_1 Performing Organization Address City/State/ZIP Code Phon e Number [facility] [address] [place] [address] documented in this encounter Visit Diagnoses Diagnosis Type 1 diabetes mellitus complicating pr egnancy, antepartum, second trimester Subclinical hypothyroidism Other specified acquired hypothyroidism Pre-existing type 1 diabetes mellitus du ring in second trimester documented in this encounter Care Teams Geomagnetist Relationship Specialty Start Date End Date Palmira Lim MD PCP - General 05/08/06 [address] [place], [place] [address] documented as of this encounter
--- OUTSIDE RECORDS SUMMARY | 2021-12-12 09:55 | XMS_ITS | Encounter Summary ---
:1999 Author Organization [employer] Address [address] [place] [address] Care Team Providers Name Role Phone Palmira Lim MD Primary Care Provider Reason for Referral Procedure/Equipment (Routine) - Incomplete Specialty Diagnoses / Procedures Referred By Contact Refer red To Contact Diagnoses Pre-existing type 1 diabetes mellitus during in second trimester Kamila Delgadillo MD Procedures MFM US OB US F/U 3931 [place], [place] [address] Referral ID Status Reason Start Date Expiration Date Visits V isits Requested Authorized [id number] Incomplete 05/23/2020 08/22/2021 10 10 TRAINING INSTRUCTOR Encounter Details Date Type Department Care Team Description 04/25/2020 Notes/Orders Special[facility] 3931 Kamila Delgadillo, Pre-existing type 1 Maternal MD diabetes mellitus Medicine [address] [place] [address] [place] [address] [place] [address] second trimester [place], [place] (Primary Dx) [place] [address] [id number] [phone] Social History Tobacco Use Types Packs/Day Years [...] by 148 0 g (Alysia 1984 (BPD, MD/DYLAN) HC, [place], [place]) )14 81 g (Hadlock [...] Nabila Serna ??Attending: Anita Denis MD Patient ??Malt House Loader: Jasmine Vick RDMS , Age: 709/02/2000, 19 [...] Nor mal Impression Kamila Delgadillo MD RAD [facility] US documented in this encounter Visit Diagnoses Diagnosis Pre-existing type 1 diabetes mellitus du ring in second trimester - Primary Pre-existing type 1 diabetes mellitus du ring in second trimester documented in this encounter Care Teams Perfect Binder Setter Relationship Specialty Start Date End Date Palmira Lim MD PCP - General 05/08/[address] [place] [address] [place] [address] documented as of this encounter
--- OUTSIDE RECORDS SUMMARY | 2021-12-12 09:55 | XMS_ITS | Encounter Summary ---
:1999 Author Organization [employer] Address [address] [place] [address] Care Team Providers Name Role Phone Palmira Lim MD Primary Care Provider Reason for Visit Reason Comments LAB RESULTS Encounter Details Date Type Department Care Team Description 05/18/2020 Telephone [facility] 3800 Sly Maldonado MBBS LAB RESULTS Endocrinology [address] [place] [address] [place], [place] [address] [phone] Social History Tobacco Use Types Packs/Day Years [...] filedocumented in this encounter Care Teams Supervisor Multifocal Lens Relationship Specialty Start Date End Date Palmira Lim MD PCP - General 05/08/[address] [place] [address] documented as of this encounter
--- OUTSIDE RECORDS SUMMARY | 2021-12-12 09:55 | XMS_ITS | Encounter Summary ---
:1999 Author Organization [employer] Address [address] [place] [address] Care Team Providers Name Role Phone Palmira Lim MD Primary Care Provider Reason for Visit Procedure/Equipment (Routine) - Incomplete Specialty Diagnoses / Procedures Referred By Contact Refer red To Contact Diagnoses Pre-existing type 1 diabetes mellitus during in second trimester Kamila Delgadillo MD Procedures MFM US OB US F/U 3931 [place], [place] [address] Referral ID Status Reason Start Date Expiration Date Visits V isits Requested Authorized [id number] Incomplete 05/23/2020 08/22/2021 10 10 Encounter Details Date Type Department Care Team Description 06/11/2020 [facility] Kamila Delgadillo, Pre-e xisting type 1 Procedure 3931 Maternal diabetes mellitus Medicine 3931 [facility] during in 3931 [facility] second trimester [place] [address] [place] [id number] Social History Tobacco Use Types Packs/Day Years [...] Name Priority Date/Time Associated Diagnosis Comme nts [facility] OB US F/U Routine 06/11/2020 3:26 PM Pre-existing type 1 Results for this CDT diabetes mellitus procedure are in during in the resu lts second trimester section. documented in this encounter Results [facility] OB US F/U (06/11/2020 3:26 PM CDT) Anatomical Region Laterality Modality Pelvis Ultrasound Study GA Study Date Study TATE Working TATE (Source) W eight (Method) 29w1d 06/11/2020 08/26/2020 09/07/2020 (Final TATE by 148 0 g (Hadlock 1984 (BPD, MD/CNM) HC, [place], [place]) )14 [...] Nabila Serna ??Attending: Anita Denis MD Patient ??Internet Designer: Jasmine Vick RDMS , Age: 709/02/2000, 19 [...] trimester documented in this encounter Care Teams Diplomatic Interpreter/Translator Relationship Specialty Start Date End Date Palmira Lim MD PCP - General 05/08/[address] [place] [address] documented as of this encounter
--- OUTSIDE RECORDS SUMMARY | 2021-12-12 09:55 | XMS_ITS | Encounter Summary ---
:1999 Author Organization [email or web address] Address [address] [place] [address] Care Team Providers Name Role Phone Palmira Lim MD Primary Care Provider Reason for Visit Reason Comments Diabetes Encounter Details Date Type Department Care Team Description 03/28/2020 Office Visit Lilian Jamil Type 1 diab etes mellitus complicating , antepartum, second trimester (Primary Dx); Endocrinology M, MBROSE Subclinical hypothyroidism [address] [address] [facility] [phone] [place] [address] Social History Tobacco Use [...] Comments Blood Pressure 112/72 03/28/2020 2:57 PM WEALTH MANAGEMENT CONSULTANT Pulse 77 03/28/2020 2:57 PM WEALTH MANAGEMENT CONSULTANT Temperature - - Respiratory Rate - - Oxygen Saturation - - Inhaled Oxygen Concentration - - Weight 76.1 kg (167 lb 12.8 oz) 03/28/2020 2:57 PM WEALTH MANAGEMENT CONSULTANT Height 162.6 cm (5' 4) 03/28/2020 2:57 PM WEALTH MANAGEMENT CONSULTANT Body Mass Index 28.8 03/28/2020 2:57 PM WEALTH MANAGEMENT CONSULTANT documented in this encounter Progress Notes Lilian Maldonado MBBS - 03/28/2020 2:45 PM CST [facility] Department of Endocrinology, Diabetes and Metabolism Clinic Note Name: Nabila Serna Cc: Follow up for T1DM. 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 #1 T1DM: Diagnosed in 2015, no known [...] mcg daily, repeat TSH today. KAIN Bruce Geodetic Surveyor Technologist Shaji Dinero - 03/28/2020 2:45 PM CST Images from the original note were not included. TH MANAGEMENT CONSULTANT documented in this encounter Plan of Treatment Not on filedocumented as of this encounter Procedures Procedure Name Priority Date/Time Associated Diagnosis Comme nts POCT GLYCOSYLATED Routine 03/28/2020 3:10 PM Type 1 diabetes R esults for this HEMOGLOBIN (HGB A1C) WEALTH MANAGEMENT CONSULTANT mellitus procedu re are in complicating the results , section. antepartum, second trimester documented in this encounter Results (ABNORMAL) TSH (03/28/2020 3:16 PM WEALTH MANAGEMENT CONSULTANT) Analysis Performed At Patho logist Time Signature TSH, Sensitive 5.45 (H) 0.30 - 03/28/2020 [facility] 4.50 7:03 PM WEALTH MANAGEMENT CONSULTANT LABORATORY uIU/mL Specimen Anatomical Collection Method / Collection Time Recei andrade Time (Source) Location / Volume Laterality Blood Venipuncture / 03/28/2020 3:16 03/28/2020 3:16 Unknown PM WEALTH MANAGEMENT CONSULTANT PM WEALTH MANAGEMENT CONSULTANT Lilian FINNEGAN LAB_1 Performing Organization Address City/State/ZIP Code Phon e Number [facility] [address] [place] [address] (ABNORMAL) POCT glycosylated hemoglobin (Hb A1C) (03/28/2020 3:10 PM WEALTH MANAGEMENT CONSULTANT) P athologist Signature Hemoglobin A1C 6.6 (A) 5.6 % POCT (Rapid) Cartridge Lot# [id number] POCT Specimen (Source) Anatomical Collection Method Collection Time Re ceived Time Location / / Volume Laterality Blood 03/28/2020 3:10 PM WEALTH MANAGEMENT CONSULTANT Lilian FINNEGAN ET POINT OF CARE TEST ENTER/ EDIT ORDERABLES Performing Organization Address City/[facility]/ZIP [facility] Phon e Number POCT documented in this encounter Visit Diagnoses Diagnosis Type 1 diabetes mellitus complicating pr egnancy, antepartum, second trimester - Primary Subclinical hypothyroidism Other specified acquired hypothyroidism documented in this encounter Care Teams Assembler Truck Trailer Relationship Specialty Start Date End Date Palmira Lim MD PCP - General 05/08/[address] [place] [address] documented as of this encounter
--- OUTSIDE RECORDS SUMMARY | 2021-12-12 09:55 | XMS_ITS | Encounter Summary ---
:1999 Author Organization [employer] Address [address] [place] [address] Care Team Providers Name Role Phone Palmira Lim MD Primary Care Provider Reason for Visit Reason Comments CONSULT Encounter Details Date Type Department Care Team Description 04/25/2020 Procedure Visit [facility] 3931 Me liz Delgadillo MD CONSULT Maternal Medic ine 3931 [facility] 3931 [place] [id number] [phone] Social History Tobacco Use Types Packs/Day Years Used Date Smoking Tobacco: Former Cigarettes 0.3 1 Smokeless Tobacco: Never Alcohol Use Standard Drinks/Week Comments Not Currently 0 (1 standard drink = 0.6 oz pure alcoho l) on ocass Sex Assigned at Date Recorded Female 09/14/2020 7:23 AM CDT documented as of this encounter Progress Notes Kamila Delgadillo MD - 04/25/2020 10:30 AM CST [facility] ULTRASOUND AND BRIEF CONSULTATION DATE OF [...] previa 8) Complex, subamniotic cystic structure measuring [id number] RECOMMENDATIONS: -Please see separate consult note for [...] reviewed the patient's overall low risk for [id number] based on her low risk aneuploidy screen. [...] 1DM, EIF) discussed. Data review including prior MFM consultationnote from 03/30. Moderate risk procedure, amniocentesis, discussed. Follow up ultrasounds ordered. [id number] billed. ECT MANAGER PROCESS DEVELOPMENT documented in this encounter Plan of Treatment Not on filedocumented as of this encounter Visit Diagnoses Diagnosis Pre-existing type 1 diabetes mellitus du ring in second trimester - Primary Echogenic intracardiac focus of fetus on ultrasound documented in this encounter Care Teams Sandblast Or Shotblast Equipment Tender Relationship Specialty Start Date End Date Palmira Lim MD PCP - General 05/08/[address] [place] [address] documented as of this encounter
--- OUTSIDE RECORDS SUMMARY | 2021-12-12 09:55 | XMS_ITS | Encounter Summary ---
:1999 Author Organization [employer] Address [address] [place] [address] Care Team Providers Name Role Phone Palmira Lim MD Primary Care Provider Reason for Visit Reason Comments Nurse Visit Encounter Details Date Type Department Care Team Description 03/20/2020 Procedure Visit [facility] Javid Delgadillo MD Nurse Visit Medicine [address] [address] [place], [place] [phone] (Wo rk) [address] [phone] Social History Tobacco Use Types Packs/Day Years [...] also set up video visit consultation with MFREGGIED for 03/30. H WORK WRAPPER LAYER documented in this encounter Plan of Treatment Not on filedocumented as of this encounter Visit Diagnoses Diagnosis Maternal pulmonary embolus (PE), history of - Primary Personal history of venous thrombosis an d embolism documented in this encounter Care Teams Restaurant Front Manager Relationship Specialty Start Date End Date Palmira Lim MD PCP - General 05/08/06 [address] [place] [address] documented as of this encounter
--- OUTSIDE RECORDS SUMMARY | 2021-12-12 09:55 | XMS_ITS | Encounter Summary ---
:1999 Author Organization [employer] Address [address] [place] [address] Care Team Providers Name Role Phone Palmira Lim MD Primary Care Provider Reason for Visit Reason Comments CONSULT Consult/Transfer Care (Routine) - Closed Specialty Diagnoses / Procedures Referred By Contact Refer red To Contact Diagnoses Supervision of other high risk , antepartum History of pulmonary embolism Denisha Serna, TOOL AND DIE ENGINEER, OIL RIG ROUGHNECK [address] [place] [address] Referral ID Status Reason Start Date Expiration Date Visits Requ ested Visits Authorized [id number] Closed 03/08/2020 06/07/2021 1 1 Encounter Details Date Type Department Care Team Description 03/30/2020 Telemedicine Specialty [facility] 3931 Kamila Delgadillo, Pre-existing type 1 diabetes mellitus during in second trimester (Primary Dx); Maternal Class 1 obesity due to excess calories w ith serious comorbidity in adult, unspecified BMI Medicine [address] [place] [address] [phone] Social History Tobacco Use Types Packs/Day Years Used Date Smoking Tobacco: Former Cigarettes 0.3 1 Smokeless Tobacco: Never Alcohol Use Standard Drinks/Week Comments Not Currently 0 (1 standard drink = 0.6 oz pure alcoho l) on ocass Sex Assigned at Date Recorded Female 09/14/2020 7:23 AM CDT documented as of this encounter Progress Notes Kamila Delgadillo MD - 03/30/2020 2:00 PM CST [facility] DATE OF VISIT: 03/30/20 [...] 2018, for which she was hospitalized at [facility]. During this hospitalization she recalled being treated [...] recommendation for a prescription drug was made. [id number] billed. ANICAL ENGINEERING TEACHER documented in this encounter Plan of [...] ([facility]) documented in this encounter Care Teams Medical Collections Representative Relationship Specialty Start Date End Date Palmira Lim MD PCP - General 05/08/[address] [place] [address] documented as of this encounter
--- OUTSIDE RECORDS SUMMARY | 2021-12-12 09:55 | XMS_ITS | Encounter Summary ---
:1999 Author Organization [employer] Address [address] [place] [address] Care Team Providers Name Role Phone Palmira Lim MD Primary Care Provider Reason for Visit Reason Comments Diabetes Encounter Details Date Type Department Care Team Description 05/16/2020 Office Visit Lilian Jamil Type 1 diab etes mellitus complicating , antepartum, second trimester (Primary Dx); Endocrinology M, KAIN Subclinical hypothyroidism; [address] Pre-existing type 1 diabetes mellitus during [place] [address] [facility] [phone] [place], [place] [id number] Social History Tobacco Use Types Packs/Day Years [...] Maldonado MBBS - 05/16/2020 3:15 PM CDT [facility] Department of Endocrinology, Diabetes and Metabolism Clinic Note Name: Nabila Serna Cc: Follow up for T1DM. 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 #1 T1DM: Diagnosed in 2015, no known [...] and Sundays, repeat TSH today. KAIN Bruce Zigzag Stitcher Shaji Villatoro - 05/16/2020 3:15 PM CDT [...] Signature TSH, Sensitive 2.91 0.30 - 05/16/2020 [facility] 4.50 7:04 PM CDT LABORATORY uIU/mL Specimen Anatomical Collection Method / Collection Time Recei andrade Time (Source) Location / Volume Laterality Blood Venipuncture / 05/16/2020 3:38 05/16/2020 3:38 Unknown PM CDT PM CDT Lilian PATELBS LAB_1 Performing Organization Address City/State/ZIP Code Phon e Number [facility] [address] [place] [address] documented in this encounter Visit Diagnoses Diagnosis Type 1 diabetes mellitus complicating pr egnancy, antepartum, second trimester - Primary Subclinical hypothyroidism Other specified acquired hypothyroidism Pre-existing type 1 diabetes mellitus du ring in second trimester documented in this encounter Care Teams Canvas Shop Laborer Relationship Specialty Start Date End Date Palmira Lim MD PCP - General 05/08/[address] [place], [place] [address] documented as of this encounter
--- OUTSIDE RECORDS SUMMARY | 2021-12-12 09:55 | XMS_ITS | Encounter Summary ---
:1999 Author Organization [employer] Address [address] [place] [address] Care Team Providers Name Role Phone Palmira Lim MD Primary Care Provider Reason for Visit Reason Comments ERRONEOUS ENTRY Encounter Details Date Type Department Care Team Description 03/14/2020 Telephone Specialty Center 3931 Me liz Delgadillo MD ERRONEOUS ENTRY Maternal Medic ine 3931 [facility] 3931 [place] [address] [place] [address] [phone] Social History Tobacco Use Types Packs/Day Years [...] Routed to primary OB provider. Note Closed. CTOR SCRIPT documented in this encounter Plan of Treatment Not on filedocumented as of this encounter Visit Diagnoses Not on filedocumented in this encounter Care Teams Restaurant Server Relationship Specialty Start Date End Date Palmira Lim MD PCP - General 05/08/[address] [place] [address] documented as of this encounter
--- OUTSIDE RECORDS SUMMARY | 2021-12-12 09:55 | XMS_ITS | Encounter Summary ---
:1999 Author Organization [employer] Address [address] [place] [address] Care Team Providers Name Role Phone Palmira Lim MD Primary Care Provider Encounter Details Date Type Department Care Team Description 03/13/2020 Orders Only [facility] Nabila Stokes Supervis ion of other high risk , antepartum (Primary Dx); Services-DIRECTOR OF EARLY CHILDHOOD MD Maricruz Pre-existing type 1 diabetes mellitus du ring in second trimester; [address] [facility], [address] [place] [address] DR Mason bryant of pulmonary embolism [address] [place] [address] [phone] (Wo rk) Social History Tobacco Use Types Packs/Day Years Used Date Smoking Tobacco: Former Cigarettes 0.3 1 Smokeless Tobacco: Never Alcohol Use Standard Drinks/Week Comments Not Currently 0 (1 standard drink = 0.6 oz pure alcoho l) on ocass Sex Assigned at Date Recorded Female 09/14/2020 7:23 AM CDT documented as of this encounter Patient Instructions Patient InstructionsNabila Stokes MD - 03/13/2020 10:52 AM DENTAL TECHNICIAN Images from the original note were not [...] called bridge therapy. Follow-up care is a csott part of your treatment and safety. Be [...] doctor before you take any prescription medicines, qafs-uun-[id number] medicines, antibiotics, vitamins, or herbal products. ?? [...] can you learn more? 1. Go to [email or web address] or Findline/Beyond CredentialsraAboutOne. 2. Enter P266 in the search box. Current as of: February 13, 2019?Content Version: 12.4 ?? [id number] [employer]. Care instructions adapted under license by your healthcare professional. If you have questions abouta medical condition or this instruction, always ask your healthcare professional. [employer] disclaims any warranty or liability for your use of this information. AL TECHNICIAN documented in this encounter Plan of Treatment Not on filedocumented as of this encounter Visit Diagnoses Diagnosis Supervision of other high risk , antepartum - Primary Pre-existing type 1 diabetes mellitus du ring in second trimester History of pulmonary embolism Personal history of pulmonary embolism documented in this encounter Care Teams Credentialing Analyst Relationship Specialty Start Date End Date Palmira Lim MD PCP - General 05/08/06 [address], [place] [address] documented as of this encounter
--- OUTSIDE RECORDS SUMMARY | 2021-12-12 09:55 | XMS_ITS | Encounter Summary ---
:2000 Author Organization [employer] Address [address] [place] [address] Care Team Providers Name Role Phone Palmira Lim MD Primary Care Provider Encounter Details Date Type Department Care Team Description 03/08/2020 Lab Visit [facility] diabetes mellitus; [facility] Encounter for blood typing; [address] [facility] screening for isoimmunization; 420 Screening for blood disease; [place] [address] Screening examination for ve nereal disease; [phone] Screening exami nation for rubella; Supervision of [...] as of this encounter Progress Notes Cristine Hensley MA - 03/08/2020 9:40 AM CST Pt informed. See phone note. ED LEVER OPERATOR documented in this encounter Plan of Treatment Not on filedocumented as of this encounter Procedures Procedure Name Priority Date/Time Associated Diagnosis Comme nts RUBELLA IMMUNE STATUS, Routine 03/08/2020 9:45 Screening exami nation Results for this IGG AM HOTBED LEVER OPERATOR for rubella procedure are i n the results section. CBC AND DIFFERENTIAL Routine 03/08/2020 9:45 Screening for blo od Results for this PANEL AM HOTBED LEVER OPERATOR disease procedure are i n the results section. URINE CULTURE Routine 03/08/2020 9:45 Supervision of other Res ults for this AM HOTBED LEVER OPERATOR high risk , procedu re are in antepartum the results section. ANTIBODY SCREEN Routine 03/08/2020 9:45 screening Re sults for this AM HOTBED LEVER OPERATOR for isoimmunization procedur e are in the results section. TREPONEMA SCREEN Routine 03/08/2020 9:45 Screening examination Results for this AM HOTBED LEVER OPERATOR for venereal disease procedu re are in the results section. BLOOD TYPE Routine 03/08/2020 9:45 Encounter for blood Resul ts for this AM HOTBED LEVER OPERATOR typing procedure are i n the results section. RAPID DRUG PANEL, Routine 03/08/2020 9:45 Encounter for drug R esults for this URINE (WITH AM HOTBED LEVER OPERATOR screening procedure are i n CONFIRMATION) the results section. HIV 1/2 AG/AB 4TH GEN Routine 03/08/2020 9:45 Screening examin ation Results for this AM HOTBED LEVER OPERATOR for venereal disease procedu re are in the results section. HEMOGLOBIN Routine 03/08/2020 9:45 Supervision of other Resu lts for this ELECTROPHORESIS AM HOTBED LEVER OPERATOR high risk , proc edure are in antepartum the results section. FREE PROTEIN S ANTIGEN Routine 03/08/2020 9:45 History of pulm onary Results for this AM HOTBED LEVER OPERATOR embolism procedure are i n the results section. CREATININE / GFR Routine 03/08/2020 9:45 Supervision of other Results for this AM HOTBED LEVER OPERATOR high risk , procedu re are in antepartum the results section. COMPLETE BLOOD Routine 03/08/2020 9:45 Screening for blood Res ults for this COUNT-W/DIFF AM HOTBED LEVER OPERATOR disease procedure are i n the results section. PROTEIN C ACTIVITY Routine 03/08/2020 9:45 History of pulmonar y Results for this AM HOTBED LEVER OPERATOR embolism procedure are i n the results section. ANTITHROMBIN 3 Routine 03/08/2020 9:45 History of pulmonary Re sults for this ACTIVITY AM HOTBED LEVER OPERATOR embolism procedure are i n the results section. FACTOR 2 MUTATION Routine 03/08/2020 9:45 History of pulmonary Results for this AM HOTBED LEVER OPERATOR embolism procedure are i n the results section. FACTOR V LEIDEN Routine 03/08/2020 9:45 History of pulmonary R esults for this AM HOTBED LEVER OPERATOR embolism procedure are i n the results section. UA MICRO IF Routine 03/08/2020 9:45 Supervision of other Resu lts for this AM HOTBED LEVER OPERATOR high risk , procedu re are in antepartum the results section. TP/CREA RATIO, URINE Routine 03/08/2020 9:45 Supervision of ot her Results for this AM HOTBED LEVER OPERATOR high risk , procedu re are in antepartum the results section. HBSAG (HEPATITIS B Routine 03/08/2020 9:45 Screening examinati on Results for this SURFACE AG) AM HOTBED LEVER OPERATOR for venereal disease procedu re are in the results section. HGB A1C Routine 03/08/2020 9:45 Screening for diabetes Re sults for this AM HOTBED LEVER OPERATOR mellitus procedure are i n the results section. ALT (SGPT) Routine 03/08/2020 9:45 Supervision of other Resu lts for this AM HOTBED LEVER OPERATOR high risk , procedu re are in antepartum the results section. AST Routine 03/08/2020 9:45 Supervision of other Resu lts for this AM HOTBED LEVER OPERATOR high risk , procedu re are in antepartum the results section. documented in this encounter Results Hemoglobin Electrophoresis (03/08/2020 9:45 AM HOTBED LEVER OPERATOR) Component Value Ref Test Analysis Performed At [facility] Range Method Time Signature Hemoglobin A 97.1 95.9 - 03/09/2020 [facility] 97.8 % 1:28 PM [facility] HOTBED LEVER OPERATOR Hemoglobin A2 2.9 2.2 - 03/09/2020 [facility] 3.2 % 1:28 PM [facility] HOTBED LEVER OPERATOR Hgb ELP Consistent 03/09/2020 [facility] Interpretation with a normal 1:28 PM [facility] hemoglobin HOTBED LEVER OPERATOR phenotype. Signed Out By Stacie 03/09/2020 [facility] Chen 1:28 PM [facility] MD roberta HOTBED LEVER OPERATOR Specimen Anatomical Collection Method / Collection Time Recei andrade Time (Source) Location / Volume Laterality Blood Venipuncture / 03/08/2020 9:45 03/08/2020 9:45 Unknown AM HOTBED LEVER OPERATOR AM HOTBED LEVER OPERATOR Denisha Serna SHOT HOLE DRILLER, OSTOMY RN LAB_1 Performing Organization Address City/State/ZIP Code Phon e Number [facility] [address] [address] Complete Blood Count-W/Diff (03/08/2020 9:45 AM HOTBED LEVER OPERATOR) P athologist Signature WBC 8.6 3.5 - 10.5 03/08/2020 [facility] x10(9)/L 12:04 PM HOTBED LEVER OPERATOR LABORATORY RBC 4.38 3.90 - 03/08/2020 [facility] 5.03 12:04 PM HOTBED LEVER OPERATOR LABORATORY x10(12)/L Hemoglobin 12.6 12.0 - 03/08/2020 [facility] 15.5 g/dL 12:04 PM HOTBED LEVER OPERATOR LABORATORY HCT 37.4 34.9 - 03/08/2020 [facility] 44.5 % 12:04 PM HOTBED LEVER OPERATOR LABORATORY MCV 85.4 80.0 - 03/08/2020 [facility] 100.0 fL 12:04 PM HOTBED LEVER OPERATOR LABORATORY MCH 28.8 27.6 - 03/08/2020 [facility] 33.3 pg 12:04 PM HOTBED LEVER OPERATOR LABORATORY MCHC 33.7 31.5 - 03/08/2020 [facility] 35.2 g/dL 12:04 PM HOTBED LEVER OPERATOR LABORATORY RDW 13.2 11.9 - 03/08/2020 [facility] 15.5 % 12:04 PM HOTBED LEVER OPERATOR LABORATORY Platelets 287 150 - 450 03/08/2020 [facility] x10(9)/L 12:04 PM HOTBED LEVER OPERATOR LABORATORY Automated NRBC 0 <=0 /100 03/08/2020 [facility] WBC 12:04 PM HOTBED LEVER OPERATOR LABORATORY Neutrophil 5.7 1.7 - 7.0 03/08/2020 [facility] Absolute 10(9)/L 12:04 PM HOTBED LEVER OPERATOR LABORATORY Lymphocyte 2.1 1.0 - 4.8 03/08/2020 [facility] Absolute 10(9)/L 12:04 PM HOTBED LEVER OPERATOR LABORATORY Monocytes 0.5 0.2 - 0.9 03/08/2020 [facility] Absolute 10(9)/L 12:04 PM HOTBED LEVER OPERATOR LABORATORY Eosinophil 0.2 0.0 - 0.5 03/08/2020 [facility] Absolute 10(9)/L 12:04 PM HOTBED LEVER OPERATOR LABORATORY Basophil 0.0 0.0 - 0.3 03/08/2020 [facility] Absolute 10(9)/L 12:04 PM HOTBED LEVER OPERATOR LABORATORY Immature Gran % 0.3 0.0 - 0.5 03/08/2020 [place] % 12:04 PM HOTBED LEVER OPERATOR LABORATORY Specimen Anatomical Collection Method / Collection Time Recei andrade Time (Source) Location / Volume Laterality Blood Venipuncture / 03/08/2020 9:45 03/08/2020 9:45 Unknown AM HOTBED LEVER OPERATOR AM HOTBED LEVER OPERATOR Denisha Fenton Daphne NICK CNP LAB_1 Performing Organization Address City/State/ZIP Code Phon e Number [facility] [address] [place] [address] (ABNORMAL) Free Protein S Antigen (03/08/2020 9:45 AM HOTBED LEVER OPERATOR) athologist Signature Free Protein S 45 (L) 55 - 142 % 03/09/2020 [facility] Antigen 10:28 AM HOTBED LEVER OPERATOR [facility]OSPITAL Specimen Anatomical Collection Method / Collection Time Recei andrade Time (Source) Location / Volume Laterality Blood Venipuncture / 03/08/2020 9:45 03/08/2020 9:45 Unknown AM HOTBED LEVER OPERATOR AM HOTBED LEVER OPERATOR [facility]ly [facility] - 03/09/2020 10:[address] [...] 2 months after or stopping estrogen. Denisha Jossy Serna APRN, CNP LAB_1 Performing Organization Address City/[facility]/ZIP Code Phon e Number [address] [address] Protein C Activity (03/08/2020 9:45 AM HOTBED LEVER OPERATOR) P athologist Signature Protein C 127 62 - 148 % 03/09/2020 [facility] Activity 10:28 AM HOTBED LEVER OPERATOR HOSPITAL Specimen Anatomical Collection Method / Collection Time Recei andrade Time (Source) Location / Volume Laterality Blood Venipuncture / 03/08/2020 9:45 03/08/2020 9:45 Unknown AM HOTBED LEVER OPERATOR AM HOTBED LEVER OPERATOR Denisha Fenton Daphne NICK CNP LAB_1 Performing Organization Address [facility] e [address] [address] Factor V Leiden (03/08/2020 9:45 AM HOTBED LEVER OPERATOR) [facility] [employer] Method Time Signature Factor 5 No Mutation No Mutation 03/09/2020 [facility] Leiden Detected Detected 8:31 AM [facility] Factor 5 DNA testing 03/09/2020 [facility] Leiden indicates that 8:31 AM [facility] this individual is Negative for the Factor V Leiden [id number] mutation in the Factor V gene. This Negative result does Not rule out other mutations within the Factor V gene or other causes of thrombophilia Specimen Anatomical Collection Method / Collection Time Recei andrade Time (Source) Location / Volume Laterality Blood Venipuncture / 03/08/2020 9:45 03/08/2020 9:45 Unknown AM HOTBED LEVER OPERATOR AM HOTBED LEVER OPERATOR [facility] - 03/09/2020 8:31 AM CS T Factor V [...] This is a PCR assay using the [employer] ert Factor II and Factor V kit. Denisha Fenton Daphne NICK CNP LAB_1 Performing Organization Address [facility] e Number [address] [address] Factor 2 Mutation (03/08/2020 9:45 AM HOTBED LEVER OPERATOR) [facility] Method Time Signature Factor 2 No Mutation No Mutation 03/09/2020 [facility] Mutation Detected Detected 8:31 AM [facility] Factor 2 DNA testing 03/09/2020 [facility] Mutation indicates that 8:31 AM [facility] this individual is negative for the [id number] mutation in the Prothrombin/Fa ctor II gene. This negative result does not rule out the presence other mutations within the Prothrombin/Fa ctor II gene or other causes of thrombophilia. Specimen Anatomical Collection Method / Collection Time Recei andrade Time (Source) Location / Volume Laterality Blood Venipuncture / 03/08/2020 9:45 03/08/2020 9:45 Unknown AM HOTBED LEVER OPERATOR AM [facility] - 03/09/2020 8:31 AM CS T The [id number] mutation in the Prothrombin (Factor II) gene is the second most common inherited risk factor for thrombosis. Individuals who have one copy of the mutation are at a 3-6 fold increased risk fo r thrombosis and individuals who have tw o copies are at an even more increased risk. This is a PCR assay using the [employer] ert Factor II and Factor V kit. Denisha Fenton Daphne NICK CNP LAB_1 Performing Organization Address [facility] e Number [address] [address] Antithrombin 3 Activity (03/08/2020 9:45 AM HOTBED LEVER OPERATOR) athologist [facility] Antithrombin 3 86 75 - 127 % 03/09/2020 [facility] Activity 10:28 AM [facility] Specimen Anatomical Collection Method / Collection Time Recei andrade Time (Source) Location / Volume Laterality Blood Venipuncture / 03/08/2020 9:45 03/08/2020 9:45 Unknown AM HOTBED LEVER OPERATOR AM HOTBED LEVER OPERATOR Denisha Fenton Daphne NICK, MITZI LAB_1 Performing Organization Address [facility] e Number [address] [address] TP/Crea Ratio, Urine (03/08/2020 9:45 AM HOTBED LEVER OPERATOR) P athologist Signature Total Protein, 7 0 - 14 03/08/2020 [facility] Urine, Random mg/dL 1:45 PM HOTBED LEVER OPERATOR LABORATORY Creatinine, 79 >20 mg/dL 03/08/2020 [facility] Urine, Random 1:45 PM HOTBED LEVER OPERATOR LABORATORY TP/Creat 0.09 0.00 - 03/08/2020 [facility] Ratio, Urine 0.20 1:45 PM HOTBED LEVER OPERATOR LABORATORY Random Specimen Anatomical Collection Method Collection Time Receive d Time (Source) Location / / Volume Laterality Urine Non-blood 03/08/2020 9:45 AM 9:45 Collection / HOTBED LEVER OPERATOR AM HOTBED LEVER OPERATOR Unknown Narrative [facility] - 03/08/2020 1:45 P M HOTBED LEVER OPERATOR Low urine creatinine values coupled with low urine protein values can artifactually increase the urine protein/creatinine re sults. Correlate results of ratio with creatinine results. Denisha Fenton Daphne NICK CNP LAB_1 Performing Organization Address City/State/ZIP Code Phon e Number [facility] [address] [place] [address] (ABNORMAL) Creatinine / GFR (03/08/2020 9:45 AM HOTBED LEVER OPERATOR) [facility] gist Method Time Signature Creatinine 0.50 (L) 0.55 - 03/08/2020 [facility] 1.02 mg/dL 12:56 PM HOTBED LEVER OPERATOR LABORATORY GFR, Estimated >60 >60 03/08/2020 [facility] mL/min/1.7 12:56 PM HOTBED LEVER OPERATOR LABORATORY 3m2 Specimen Anatomical Collection Method / Collection Time Recei andrade Time (Source) Location / Volume Laterality Blood Venipuncture / 03/08/2020 9:45 03/08/2020 9:45 Unknown AM HOTBED LEVER OPERATOR AM HOTBED LEVER OPERATOR Denisha Fenton Daphne NICK CNP LAB_1 Performing Organization Address City/State/ZIP Code Phon e Number [facility] [address] [place] [address] AST (03/08/2020 9:45 AM HOTBED LEVER OPERATOR) athologist Signature AST (SGOT) 10 10 - 40 U/L 03/08/2020 [facility] 12:56 PM HOTBED LEVER OPERATOR LABORATORY Specimen Anatomical Collection Method / Collection Time Recei andrade Time (Source) Location / Volume Laterality Blood Venipuncture / 03/08/2020 9:45 03/08/2020 9:45 Unknown AM HOTBED LEVER OPERATOR AM HOTBED LEVER OPERATOR Denisha Fenton Daphne NICK CNP LAB_1 Performing Organization Address City/State/ZIP Code Phon e Number [facility] [address] [place] [address] ALT (SGPT) (03/08/2020 9:45 AM HOTBED LEVER OPERATOR) P athologist Signature ALT (SGPT) <10 0 - 55 U/L 03/08/2020 [facility] 12:56 PM HOTBED LEVER OPERATOR LABORATORY Specimen Anatomical Collection Method / Collection Time Recei andrade Time (Source) Location / Volume Laterality Blood Venipuncture / 03/08/2020 9:45 03/08/2020 9:45 Unknown AM HOTBED LEVER OPERATOR AM HOTBED LEVER OPERATOR Denisha Fenton Daphne SHOT HOLE DRILLER, OSTOMY RN LAB_1 Performing Organization Address City/State/ZIP Code Phon e Number [facility] [address] [place] [address] Drugs of Abuse Screen, Urine, w/ conf (03/08/2020 9:45 AM HOTBED LEVER OPERATOR) [facility] Method Time Signature Amphetamines Not Not 03/08/2020 [facility] Screen Detected Detected 1:23 PM HOTBED LEVER OPERATOR LABORATORY Barbiturates Not Not 03/08/2020 [facility] Screen Detected Detected 1:23 PM HOTBED LEVER OPERATOR LABORATORY Benzodiazepines Not Not 03/08/2020 [facility] Screen Detected Detected 1:23 PM HOTBED LEVER OPERATOR LABORATORY Buprenorphine Not Not 03/08/2020 [facility] Screen Detected Detected 1:23 PM HOTBED LEVER OPERATOR LABORATORY Cocaine Metabolite Not Not 03/08/2020 [facility] Screen Detected Detected 1:23 PM HOTBED LEVER OPERATOR LABORATORY Methadone Screen Not Not 03/08/2020 [facility] Detected Detected 1:23 PM HOTBED LEVER OPERATOR LABORATORY Opiates Screen Not Not 03/08/2020 [facility] Detected Detected 1:23 PM HOTBED LEVER OPERATOR LABORATORY Oxycodone Screen Not Not 03/08/2020 [facility] Detected Detected 1:23 PM HOTBED LEVER OPERATOR LABORATORY Phencyclidine Not Not 03/08/2020 [facility] (PCP) Screen Detected Detected 1:23 PM HOTBED LEVER OPERATOR LABORATORY THC (Marijuana) Not Not 03/08/2020 [facility] Metab Screen Detected Detected 1:23 PM HOTBED LEVER OPERATOR LABORATORY Creatinine, Urine, 79 >20 mg/dL 03/08/2020 [facility] Random 1:23 PM HOTBED LEVER OPERATOR LABORATORY Specimen Anatomical Collection Method Collection Time Receive d Time (Source) Location / / Volume Laterality Urine Non-blood 03/08/2020 9:45 AM 9:45 Collection / HOTBED LEVER OPERATOR AM HOTBED LEVER OPERATOR Unknown Narrative [facility] - 03/08/2020 1:23 P M HOTBED LEVER OPERATOR The absence of expected drug(s) and/or d rug metabolite(s) may indicate non-compliance, inappropriate timing of specimen collection relative to drug administration, poor drug absorption, di luted/adulterated urine or limitations of testing. The concentration must be great er than or equal to the cutoff concentration to be reported as positive. For medical purposes only: not valid for forensic, legal, or employment use. Denisha Fenton Daphne NICK CNP LAB_1 Performing Organization Address City/[facility]/[place]IP [facility] Number [facility] [address] [place] [address] (ABNORMAL) Urine Culture (03/08/2020 9:45 AM HOTBED LEVER OPERATOR) [facility] Method Time Signature Urine Culture Growth (A) 03/09/2020 [facility] 4:14 PM [facility] Urine Culture >100,000 CFU/mL 03/09/2020 [facility] Multiple 4:14 PM [facility] Bacterial Morphotypes Specimen Anatomical Collection Method Collection Time Receive d Time (Source) Location / / Volume Laterality Urine URINE SPECIMEN Non-blood 03/08/2020 9:45 AM 021 9:45 COLLECTION, CLEAN Collection / HOTBED LEVER OPERATOR AM HOTBED LEVER OPERATOR CATCH / Unknown Unknown Denisha Fenton Daphne NICK CNP LAB_1 Performing Organization Address [facility] e Number [address] [address] Urinalysis Routine(Micro If Pos) (03/08/2020 9:45 AM HOTBED LEVER OPERATOR) [facility] Method Time Signature Urine Color Straw Straw-Yellow 03/08/2020 [facility] 11:32 AM LABORATORY HOTBED LEVER OPERATOR Urine Clarity Clear Clear 03/08/2020 [facility] 11:32 AM LABORATORY HOTBED LEVER OPERATOR Specific 1.025 1.005 - 03/08/2020 [facility] [place], 1.030 11:32 AM LABORATORY Urine HOTBED LEVER OPERATOR PH Urine 7.0 5.0 - 8.0 03/08/2020 [facility] 11:32 AM LABORATORY HOTBED LEVER OPERATOR Protein, Negative Neg/Trace 03/08/2020 [facility] Urine Qual 11:32 AM LABORATORY (mg/dL) HOTBED LEVER OPERATOR Glucose Urine Negative Negative 03/08/2020 [facility] Qual (mg/dL) 11:32 AM LABORATORY HOTBED LEVER OPERATOR Ketones, Negative Negative 03/08/2020 [facility] Urine (mg/dL) 11:32 AM LABORATORY HOTBED LEVER OPERATOR Urobilinogen, 0.2 <2.0 03/08/2020 [facility] Urine (EU/dL) 11:32 AM LABORATORY HOTBED LEVER OPERATOR Bilirubin Negative Negative 03/08/2020 [facility] Urine 11:32 AM LABORATORY HOTBED LEVER OPERATOR Blood, Urine Negative Neg/Trace 03/08/2020 [facility] 11:32 AM LABORATORY HOTBED LEVER OPERATOR Nitrite Urine Negative Negative 03/08/2020 [facility] 11:32 AM LABORATORY HOTBED LEVER OPERATOR Leukocyte Negative Negative 03/08/2020 [facility] Est. 11:32 AM LABORATORY HOTBED LEVER OPERATOR Urine Source Clean Catch 03/08/2020 [facility] 11:32 AM LABORATORY HOTBED LEVER OPERATOR Specimen Anatomical Collection Method Collection Time Receive d Time (Source) Location / / Volume Laterality Urine URINE SPECIMEN Non-blood 03/08/2020 9:45 AM 9:45 COLLECTION, CLEAN Collection / HOTBED LEVER OPERATOR AM HOTBED LEVER OPERATOR CATCH / Unknown Unknown Denisha Serna APRN, CNP LAB_1 Performing Organization Address City/[facility]/ZIP Code Phon e Number [facility] [address] [place] [address] Rubella Immune Status, IgG (03/08/2020 9:45 AM HOTBED LEVER OPERATOR) athologist Signature Rubella Units 12.50 03/08/2020 [facility] 1:36 PM HOTBED LEVER OPERATOR LABORATORY Comment: The magnitude of the measured r esult, above the cutoff, is not indicative of the amount of antibody present. Rubella Intepretation Immune Immune 03/08/2020 1:3 6 PM HOTBED LEVER OPERATOR [facility] Specimen Anatomical Collection Method / Collection Time Recei andrade Time (Source) Location / Volume Laterality Blood Venipuncture / 03/08/2020 9:45 03/08/2020 9:45 Unknown AM HOTBED LEVER OPERATOR AM HOTBED LEVER OPERATOR Denisha Serna APRN, CNP LAB_1 Performing Organization Address City/State/ZIP Code Phon e Number [facility] [address] [place] [address] Treponema Screen (03/08/2020 9:45 AM HOTBED LEVER OPERATOR) [facility] Method Time Signature Treponema Screen 0.039 {s_co_ratio 03/08/2020 [facility] Result } 1:29 PM HOTBED LEVER OPERATOR LABORATORY Treponema Screen Non Non 03/08/2020 [facility] Interpretation Reactive Reactive 1:29 PM HOTBED LEVER OPERATOR LABORATORY Specimen Anatomical Collection Method / Collection Time Recei andrade Time (Source) Location / Volume Laterality Blood Venipuncture / 03/08/2020 9:45 03/08/2020 9:45 Unknown AM HOTBED LEVER OPERATOR AM HOTBED LEVER OPERATOR Denisha Fenton Daphne NICK CNP LAB_1 Performing Organization Address City/[facility] Phon e Number [facility] [address] [place] [address] [address] HIV 1/2 Ag/Ab 4th Generation (03/08/2020 9:45 AM HOTBED LEVER OPERATOR) [facility] Method [place] Signature HIV 1/2 Negative Negative 03/08/2020 [facility] Antigen/Antib (Non (Non 1:15 PM HOTBED LEVER OPERATOR LABORATORY shellie (4th Reactive) Reactive) generation) Comment: HIV-1 p24 Antigen and HIV-1/HIV -2 Antibody not detected Specimen Anatomical Collection Method / Collection Time Recei andrade Time (Source) Location / Volume Laterality Blood Venipuncture / 03/08/2020 9:45 03/08/2020 9:45 Unknown AM HOTBED LEVER OPERATOR AM HOTBED LEVER OPERATOR Denihsa Fenton Daphne NICK CNP LAB_1 Performing Organization Address [facility] Phon e Number [facility] [address] [address] HEP B SURFACE ANTIGEN, NO REFLEX (03/08/2020 9:45 AM HOTBED LEVER OPERATOR) [facility] Signature Hepatitis B Negative Negative 03/08/2020 [facility] Surface (Non (Non 1:15 PM HOTBED LEVER OPERATOR LABORATORY Antigen Reactive) Reactive) Specimen Anatomical Collection Method / Collection Time Recei andrade Time (Source) Location / Volume Laterality Blood Venipuncture / 03/08/2020 9:45 03/08/2020 9:45 Unknown AM HOTBED LEVER OPERATOR AM HOTBED LEVER OPERATOR Denisha Fenton Daphne NICK CNP LAB_1 Performing Organization Address City/[facility] Phon e Number [facility] [address] [place] [address] [address] Antibody Screen (03/08/2020 9:45 AM HOTBED LEVER OPERATOR) [facility] Method Time Signature Antibody Screen Negative 03/08/2020 [facility] Interpretation 1:33 PM HOTBED LEVER OPERATOR BLOOD BANK Specimen Anatomical Collection Method / Collection Time Recei andrade Time (Source) Location / Volume Laterality Blood Venipuncture / 03/08/2020 9:45 03/08/2020 9:45 Unknown AM HOTBED LEVER OPERATOR AM HOTBED LEVER OPERATOR Denisha Jossy Daphne NICK CNP LAB_1 Performing Organization Address City/[facility] Phon e Number [facility] [address] [place] [address] Blood Group & RH (Blood Type) (03/08/2020 9:45 AM HOTBED LEVER OPERATOR) P athologist Signature ABO A 03/08/2020 [facility] 1:15 PM HOTBED LEVER OPERATOR BLOOD BANK RH Positive 03/08/2020 [facility] 1:15 PM HOTBED LEVER OPERATOR BLOOD BANK Specimen Anatomical Collection Method / Collection Time Recei andrade Time (Source) Location / Volume Laterality Blood Venipuncture / 03/08/2020 9:45 03/08/2020 9:45 Unknown AM HOTBED LEVER OPERATOR AM HOTBED LEVER OPERATOR Denisha Fenton Daphne NICK, MITZI LAB_1 Performing Organization Address City/[facility] Phon e Number [facility] [address] [place] [address] (ABNORMAL) HGB A1C (03/08/2020 9:45 AM HOTBED LEVER OPERATOR) [facility] Method Time Signature Hemoglobin A1C 6.9 (H) <=5.6 % 03[facility]08[facility]2020 [facility] PM HOTBED LEVER OPERATOR CENTRAL LAB Specimen Anatomical Collection Method / Collection Time Recei andrade Time (Source) Location / Volume Laterality Blood Venipuncture / 03/08/2020 9:45 03/08/2020 9:45 Unknown AM HOTBED LEVER OPERATOR AM HOTBED LEVER OPERATOR Narrative [facility] - 03/08/2020 1:36 PM HOTBED LEVER OPERATOR For patients not previously diagnosed with diabetes: 5.7-6.4%: Increased risk for diabetes 6.5% and greater: Diagnostic for diabete s For patients diagnosed with diabetes: <8.0%: Goal of therapy for ages 18-75 Clinicians may recommend a higher or low er goal for specific individuals. Denisha Jossy Senra APRN, CNP LAB_1 Performing Organization Address City/State/ZIP Code Phon e Number [facility] [address] [place] [id number] documented in this encounter Visit Diagnoses Diagnosis [...] embolism documented in this encounter Care Teams Solar Installer Technician Relationship Specialty Start Date End Date Palmira Lim MD PCP - General 05/08/[address] [place] [address] documented as of this encounter
--- OUTSIDE RECORDS SUMMARY | 2021-12-12 09:55 | XMS_ITS | Encounter Summary ---
:2000 Author Organization [employer] Address [address] [place] [address] Care Team Providers Name Role Phone Palmira Lim MD Primary Care Provider Reason for Visit Reason Comments Diabetes Encounter Details Date Type Department Care Team Description 03/09/2020 Telemedicine [place] Sonja Beltran, Type 1 diabe yosi mellitus without complication (HRC) (Primary Dx); Endocrinology UNIVERSAL GRINDER SET UP OPERATOR, PATTERNATOR Pre-existing type 1 diabetes mellitus du ring in second trimester; [address] [place] [address] [address] [phone] [place] [address] Social History Tobacco Use Types [...] - 03/09/2020 3:30 PM CST 03/07/20 [facility] re: chart prep ENT WRITER Shaji Villatoro - 03/09/2020 3:30 PM CST [...] plus >140 Tresiba- 32 units once daily ENT WRITER Sonja Beltran, UNIVERSAL GRINDER SET UP OPERATOR, PATTERNATOR - 03/09/2020 3:30 PM CST March 09, 2020 Chief Complaint: Nabila Serna a 19 [...] when he consulted with her inMay of 2018. Her TSH was 5.15 so she was [...] smokeless tobacco. 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 Has not had [...] plus 1/40 over 140 Has been using [employer] to look up foods and count carbs more in the last week. Full med list reviewed in [facility]. No other meds. Objective: Female patient, appears [...] again, call with any questions or concerns. ENT WRITER documented in this encounter Plan of Treatment Not on filedocumented as of this encounter Visit Diagnoses Diagnosis Type 1 diabetes mellitus without complic ation (HRC) - Primary Type I (juvenile type) diabetes mellitus without mention of complication, not stated as uncontrolled Pre-existing type 1 diabetes mellitus du ring in second trimester Subclinical hypothyroidism Other specified acquired hypothyroidism documented in this encounter Care Teams Rubber Extrusion Machine Operator Relationship Specialty Start Date End Date Palmira Lim MD PCP - General 05/08/[address] [place] [address] documented as of this encounter
--- OUTSIDE RECORDS SUMMARY | 2021-12-12 09:55 | XMS_ITS | Encounter Summary ---
:2000 Author Organization [employer] Address [address] [place] [address] Care Team Providers Name Role Phone Palmira Lim MD Primary Care Provider Reason for Visit Reason Comments LAB RESULTS Encounter Details Date Type Department Care Team Description 03/29/2020 Telephone [facility] [address] [facility] LAB RESULTS Endocrinology [address] [place] [address] [place], [place] [id number] [phone] Social History Tobacco Use Types Packs/Day Years [...] lab recommendations below. Pt agreeable to plan. E SALESMAN Aleida Pace RN - 03/29/2020 9:08 AM CST Left voicemail for Pt. To call back for message below. E SALESMAN Aleida Pace RN - 03/29/2020 9:08 AM CST ----- Message from KAIN Bruce sent at 03/29/2020 8:01 AM ROUTE SALESMAN ----- Thyroid lab indicated under treatment. Change levothyroxine 50 mcg dose intake to 1 tab daily Thu-Thu, and 2 tabs on Thu and Sundays, repeat blood work in 3 weeks. E SALESMAN documented in this encounter Plan of Treatment Not on filedocumented as of this encounter Visit Diagnoses Not on filedocumented in this encounter Care Teams Physical Metallurgist Relationship Specialty Start Date End Date Palmira Lmi MD PCP - General 05/08/06 [address] [address] documented as of this encounter
--- OUTSIDE RECORDS SUMMARY | 2021-12-12 09:55 | XMS_ITS | Encounter Summary ---
:1999 Author Organization [employer] Address [address] [place] [address] Care Team Providers Name Role Phone Palmira Lim MD Primary Care Provider Reason for Referral Consult/Transfer Care (Routine) - Closed Specialty Diagnoses / Procedures Referred By Contact Refer red To Contact Diagnoses Supervision of other high risk , antepartum History of pulmonary embolism Denisha Mcneil APRN, CNP [id number] [place] [address] Referral ID Status Reason Start Date Expiration Date Visits Requ ested Visits Authorized [id number] Closed 03/08/2020 06/07/2021 1 1 Scheduling Instructions Your provider has recommended an appoint ment with [facility]. You may call [phone] to s chedule your appointment. We suggest you call your health insurance company about your coverage and benefits for this appointment. WARE QUALITY ASSURANCE ENGINEER Consult/Transfer Care (Routine) - Closed Specialty Diagnoses / Procedures Referred By Contact Refer red To Contact Diagnoses Supervision of other high risk , antepartum Denisha Mcneil APRN, CNP [id number] [place] [id number] Referral ID Status Reason Start Date Expiration Date Visits Requ ested Visits Authorized [id number] Closed 03/08/2020 06/07/2021 1 1 Scheduling Instructions Your provider has recommended an appoint ment with [facility]. You may call [phone] to s chedule your appointment. We suggest you call your health insurance company about your coverage and benefits for this appointment. WARE QUALITY ASSURANCE ENGINEER Reason for Visit Reason Comments INITIAL VISIT Encounter Details Date Type Department Care Team Description 03/08/2020 Initial [employer] [facility] Denisha Mcneil I NITIAL Services-AGRICULTURE INTERN MITZI NICK VISIT [address] [place] [address] [facility], [address] [place] [id number] Social History Tobacco Use Types Packs/Day [...] Comments Blood Pressure 115/62 03/08/2020 7:59 AM SOFTWARE QUALITY ASSURANCE ENGINEER Pulse 115 03/08/2020 7:59 AM SOFTWARE QUALITY ASSURANCE ENGINEER Temperature - - Respiratory Rate - - Oxygen Saturation - - Inhaled Oxygen Concentration - - Weight 73.5 kg (162 lb) 03/08/2020 8:29 PM SOFTWARE QUALITY ASSURANCE ENGINEER Height 162.6 cm (5' 4) 03/08/2020 8:29 PM SOFTWARE QUALITY ASSURANCE ENGINEER Body Mass Index 27.81 03/08/2020 8:29 PM SOFTWARE QUALITY ASSURANCE ENGINEER documented in this encounter Progress Notes Denisha Mcneil APRN, CNP - 03/08/2020 8:00 AM SOFTWARE QUALITY ASSURANCE ENGINEER Addended by: DENISHA MCNEIL on: 03/08/2020 09:01 PM Modules accepted: Orders WARE QUALITY ASSURANCE ENGINEER Denisha Mcneil APRN, CNP - 03/08/2020 8:00 AM CST CHIEF COMPLAINT: [...] her most recent 02/13/2020 endocrine appointment with FIRE ALARM TECHNICIAN Eula Peterson, the report stated the following: --Diagnosed with diabetes: 2015. Complications:No known chronic microvascular complications of diabetes. [...] mellitus without complication (HRC) 05/11/2018 Dx 2016 Last pap smear: none. [...] not have concerns for domestic violence. 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 Covid [...] ROS is negative. OBJECTIVE:Patient was offered a digital media specialist for visit and declined. BP 115/62 (BP [...] history of PE, type 1 diabetes Milad[facility] Wei Guide to Booklet given and sections reviewed. Discussed genetic screens,diagnostic tests per [employer] Guidelines appropriate [...] gestation - Baseline EKG ordered - Primary Pt Skilled: [facility] Pt Skilled, Dr. Maldonado. Highly advised that patient keep all appointments as scheduled. - Growth US: Every 4 weeks starting at 28 weeks - testing: BPP weekly at 32 weeks for well controlled, 28 weeks for poorly controlled - Timing of delivery: Between [id number] for well controlled, [id number] for poorly controlled Hypothyroid. Start taking Synthroid [...] also oriented to education noted in the [facility] Guide to Booklet. Dictation disclaimer: Some notes are completed with voice-recognition dictation software. Typographical errors may result. Please contact me via [employer] staff message if you note any errors requiring clarification. Denisha Mai APRN, CNP - 03/08/2020 8:00 AM CST Gonorrhea and Chlamydia labs negative. Patient will be notified with serum NOB results. They will also be reviewed at the NOB2 appointment. MS-SPECIAL EDUCATOR WARE QUALITY ASSURANCE ENGINEER Denisha Mcneil APRN, CNP - 03/08/2020 8:00 AM CST Addendum: 03/08/[address] Burr at 3:30 pm regarding NOB1 plan today and referral to [facility] for thrombophilia history. MS-SPECIAL EDUCATOR WARE QUALITY ASSURANCE ENGINEER documented in this encounter Plan of Treatment [...] Res ults for this YEARS AND OLDER) SOFTWARE QUALITY ASSURANCE ENGINEER examination for procedur e are in venereal disease the results section. documented in this encounter Results CHLAMYDIA & GC (03/08/2020 9:57 AM SOFTWARE QUALITY ASSURANCE ENGINEER) [facility] Method Time Signature Chlamydia Not Not 03/08/2020 [facility] Trachomatis Detected Detected 8:07 PM SOFTWARE QUALITY ASSURANCE ENGINEER [facility]AL [facility] STD N. gonorrhoeae Not Not 03/08/2020 ON LICENSE OF [facility] STD Detected Detected 8:07 PM SOFTWARE QUALITY ASSURANCE ENGINEER CENTRAL LAB Specimen Anatomical Collection Method Collection Time Receive d Time (Source) Location / / Volume Laterality Swab STD ENTIRE ENDOCERVIX Non-blood 03/08/2020 9:57 AM 08/2020 / Unknown Collection / SOFTWARE QUALITY ASSURANCE ENGINEER 10:47 AM SOFTWARE QUALITY ASSURANCE ENGINEER Unknown [facility] - 03/08/2020 8:07 PM SOFTWARE QUALITY ASSURANCE ENGINEER Test performed by Molecular Detection Denisha Fenton Daphne NICK CNP LAB_1 Performing Organization Address City/[facility] Phon e Number [facility] [address] [address] (ABNORMAL) Free Protein S Antigen (03/08/2020 9:45 AM SOFTWARE QUALITY ASSURANCE ENGINEER) athologist [facility] Free Protein S 45 (L) 55 - 142 % 03/09/2020 [facility] Antigen 10:28 AM SOFTWARE QUALITY ASSURANCE ENGINEER [facility] Specimen Anatomical Collection Method / Collection Time Recei andrade Time (Source) Location / Volume Laterality Blood Venipuncture / 03/08/2020 9:45 03/08/2020 9:45 Unknown AM SOFTWARE QUALITY ASSURANCE ENGINEER AM SOFTWARE QUALITY ASSURANCE ENGINEER [facility] - 03/09/2020 10:[address] [...] Daphne NICK CNP LAB_1 Performing Organization Address City/[facility] Code Phon e Number [address] [address] Protein C Activity (03/08/2020 9:45 AM SOFTWARE QUALITY ASSURANCE ENGINEER) P athologist Signature Protein C 127 62 - 148 % 03/09/2020 [facility] Activity 10:28 AM SOFTWARE QUALITY ASSURANCE ENGINEER [facility]OSPITAL Specimen Anatomical Collection Method / Collection Time Recei andrade Time (Source) Location / Volume Laterality Blood Venipuncture / 03/08/2020 9:45 03/08/2020 9:45 Unknown AM SOFTWARE QUALITY ASSURANCE ENGINEER AM SOFTWARE QUALITY ASSURANCE ENGINEER Denisha Fenton Daphne NICK CNP LAB_1 Performing Organization Address [facility] e [address] [address] Factor V Leiden (03/08/2020 9:45 AM SOFTWARE QUALITY ASSURANCE ENGINEER) [facility] Method Time Signature Factor 5 No Mutation No Mutation 03/09/2020 [facility] Leiden Detected Detected 8:31 AM [facility] Factor 5 DNA testing 03/09/2020 [facility] Leiden indicates that 8:31 AM [facility] this individual is Negative for the Factor V Leiden [id number] mutation in the Factor V gene. This Negative result does Not rule out other mutations within the Factor V gene or other causes of thrombophilia Specimen Anatomical Collection Method / Collection Time Recei andrade Time (Source) Location / Volume Laterality Blood Venipuncture / 03/08/2020 9:45 03/08/2020 9:45 Unknown AM SOFTWARE QUALITY ASSURANCE ENGINEER AM SOFTWARE QUALITY ASSURANCE ENGINEER [facility] 03/09/2020 8:31 AM CS T Factor V [...] This is a PCR assay using the [employer] ert Factor II and Factor V kit. Denisha Fenton Daphne NICK CNP LAB_1 Performing Organization Address [facility] e Number [address] [address] Factor 2 Mutation (03/08/2020 9:45 AM SOFTWARE QUALITY ASSURANCE ENGINEER) [facility] Method Time Signature Factor 2 No Mutation No Mutation 03/09/2020 [facility] Mutation Detected Detected 8:31 AM [facility] Factor 2 DNA testing 03/09/2020 [facility] Mutation indicates that 8:31 AM [facility] this individual is negative for the [id number] mutation in the Prothrombin/Fa ctor II gene. This negative result does not rule out the presence other mutations within the Prothrombin/Fa ctor II gene or other causes of thrombophilia. Specimen Anatomical Collection Method / Collection Time Recei andrade Time (Source) Location / Volume Laterality Blood Venipuncture / 03/08/2020 9:45 03/08/2020 9:45 Unknown AM SOFTWARE QUALITY ASSURANCE ENGINEER AM [facility] - 03/09/2020 8:31 AM CS T The [id number] mutation in the Prothrombin (Factor II) gene is the second most common inherited risk factor for thrombosis. Individuals who have one copy of the mutation are at a 3-6 fold increased risk fo r thrombosis and individuals who have tw o copies are at an even more increased risk. This is a PCR assay using the [employer] ert Factor II and Factor V kit. Denisha Fenton Daphne NICK CNP LAB_1 Performing Organization Address [facility]/[address] [address] Antithrombin 3 Activity (03/08/2020 9:45 AM SOFTWARE QUALITY ASSURANCE ENGINEER) athologist [facility] Antithrombin 3 86 75 - 127 % 03/09/2020 [facility] Activity 10:28 AM [facility] Specimen Anatomical Collection Method / Collection Time Recei andrade Time (Source) Location / Volume Laterality Blood Venipuncture / 03/08/2020 9:45 03/08/2020 9:45 Unknown AM SOFTWARE QUALITY ASSURANCE ENGINEER AM SOFTWARE QUALITY ASSURANCE ENGINEER Denisha Fenton Daphne NICK CNP LAB_1 Performing Organization Address [facility]/[address] [address] TP/Crea Ratio, Urine (03/08/2020 9:45 AM SOFTWARE QUALITY ASSURANCE ENGINEER) athologist Signature Total Protein, 7 0 - 14 03/08/2020 [facility] Urine, Random mg/dL 1:45 PM SOFTWARE QUALITY ASSURANCE ENGINEER LABORATORY Creatinine, 79 >20 mg/dL 03/08/2020 [facility] Urine, Random 1:45 PM SOFTWARE QUALITY ASSURANCE ENGINEER LABORATORY TP/Creat 0.09 0.00 - 03/08/2020 [facility] Ratio, Urine 0.20 1:45 PM SOFTWARE QUALITY ASSURANCE ENGINEER LABORATORY Random Specimen Anatomical Collection Method Collection Time Receive d Time (Source) Location / / Volume Laterality Urine Non-blood 03/08/2020 9:45 AM 9:45 Collection / SOFTWARE QUALITY ASSURANCE ENGINEER AM SOFTWARE QUALITY ASSURANCE ENGINEER Unknown Narrative [facility] - 03/08/2020 1:45 P M SOFTWARE QUALITY ASSURANCE ENGINEER Low urine creatinine values coupled with low urine protein values can artifactually increase the urine protein/creatinine re sults. Correlate results of ratio with creatinine results. Denisha Fenton Daphne NICK CNP LAB_1 Performing Organization Address City/State/ZIP Code Phon e Number [facility] [address] [place] [address] (ABNORMAL) Creatinine / GFR (03/08/2020 9:45 AM SOFTWARE QUALITY ASSURANCE ENGINEER) Patholo gist Method Time Signature Creatinine 0.50 (L) 0.55 - 03/08/2020 [facility] 1.02 mg/dL 12:56 PM SOFTWARE QUALITY ASSURANCE ENGINEER LABORATORY GFR, Estimated >60 >60 03/08/2020 [facility] mL/min/1.7 12:56 PM SOFTWARE QUALITY ASSURANCE ENGINEER LABORATORY 3m2 Specimen Anatomical Collection Method / Collection Time Recei andrade Time (Source) Location / Volume Laterality Blood Venipuncture / 03/08/2020 9:45 03/08/2020 9:45 Unknown AM SOFTWARE QUALITY ASSURANCE ENGINEER AM SOFTWARE QUALITY ASSURANCE ENGINEER Denisha Fenton Daphne NICK CNP LAB_1 Performing Organization Address City/[facility]/ZIP Code Phon e Number [facility] [address] [place], [place] [phone] AST (03/08/2020 9:45 AM SOFTWARE QUALITY ASSURANCE ENGINEER) P athologist Signature AST (SGOT) 10 10 - 40 U/L 03/08/2020 [facility] 12:56 PM SOFTWARE QUALITY ASSURANCE ENGINEER LABORATORY Specimen Anatomical Collection Method / Collection Time Recei andrade Time (Source) Location / Volume Laterality Blood Venipuncture / 03/08/2020 9:45 03/08/2020 9:45 Unknown AM SOFTWARE QUALITY ASSURANCE ENGINEER AM SOFTWARE QUALITY ASSURANCE ENGINEER Denisha Fenton Daphne NICK CNP LAB_1 Performing Organization Address City/State/ZIP Code Phon e Number [facility] [address] [place] [phone] ALT (SGPT) (03/08/2020 9:45 AM SOFTWARE QUALITY ASSURANCE ENGINEER) P athologist Signature ALT (SGPT) <10 0 - 55 U/L 03/08/2020 [facility] 12:56 PM SOFTWARE QUALITY ASSURANCE ENGINEER LABORATORY Specimen Anatomical Collection Method / Collection Time Recei andrade Time (Source) Location / Volume Laterality Blood Venipuncture / 03/08/2020 9:45 03/08/2020 9:45 Unknown AM SOFTWARE QUALITY ASSURANCE ENGINEER AM SOFTWARE QUALITY ASSURANCE ENGINEER Denisha Fenton Daphne NICK, SPECIAL EDUCATOR LAB_1 Performing Organization Address City/State/ZIP Code Phon e Number [facility] [address] [place], [place] [phone] Drugs of Abuse Screen, Urine, w/ conf (03/08/2020 9:45 AM SOFTWARE QUALITY ASSURANCE ENGINEER) Patholo gist Method Time Signature Amphetamines Not Not 03/08/2020 [facility] Screen Detected Detected 1:23 PM SOFTWARE QUALITY ASSURANCE ENGINEER LABORATORY Barbiturates Not Not 03/08/2020 [facility] Screen Detected Detected 1:23 PM SOFTWARE QUALITY ASSURANCE ENGINEER LABORATORY Benzodiazepines Not Not 03/08/2020 [facility] Screen Detected Detected 1:23 PM SOFTWARE QUALITY ASSURANCE ENGINEER LABORATORY Buprenorphine Not Not 03/08/2020 [facility] Screen Detected Detected 1:23 PM SOFTWARE QUALITY ASSURANCE ENGINEER LABORATORY Cocaine Metabolite Not Not 03/08/2020 [facility] Screen Detected Detected 1:23 PM SOFTWARE QUALITY ASSURANCE ENGINEER LABORATORY Methadone Screen Not Not 03/08/2020 [facility] Detected Detected 1:23 PM SOFTWARE QUALITY ASSURANCE ENGINEER LABORATORY Opiates Screen Not Not 03/08/2020 [facility] Detected Detected 1:23 PM SOFTWARE QUALITY ASSURANCE ENGINEER LABORATORY Oxycodone Screen Not Not 03/08/2020 [facility] Detected Detected 1:23 PM SOFTWARE QUALITY ASSURANCE ENGINEER LABORATORY Phencyclidine Not Not 03/08/2020 [facility] (PCP) Screen Detected Detected 1:23 PM SOFTWARE QUALITY ASSURANCE ENGINEER LABORATORY THC (Marijuana) Not Not 03/08/2020 [facility] Metab Screen Detected Detected 1:23 PM SOFTWARE QUALITY ASSURANCE ENGINEER LABORATORY Creatinine, Urine, 79 >20 mg/dL 03/08/2020 [facility] Random 1:23 PM SOFTWARE QUALITY ASSURANCE ENGINEER LABORATORY Specimen Anatomical Collection Method Collection Time Receive d Time (Source) Location / / Volume Laterality Urine Non-blood 03/08/2020 9:45 AM 9:45 Collection / SOFTWARE QUALITY ASSURANCE ENGINEER AM SOFTWARE QUALITY ASSURANCE ENGINEER Unknown Narrative [facility] - 03/08/2020 1:23 P M SOFTWARE QUALITY ASSURANCE ENGINEER The absence of expected drug(s) and/or d rug metabolite(s) may indicate non-compliance, inappropriate timing of specimen collection relative to drug administration, poor drug absorption, di luted/adulterated urine or limitations of testing. The concentration must be great er than or equal to the cutoff concentration to be reported as positive. For medical purposes only: not valid for forensic, legal, or employment use. Denisha Jossy Mcneil APRN, CNP LAB_1 Performing Organization Address City/State/ZIP Code Phon e Number [facility] [place] [address] (ABNORMAL) Urine Culture (03/08/2020 9:45 AM SOFTWARE QUALITY ASSURANCE ENGINEER) [facility] Method [place] Signature Urine Culture Growth (A) 03/09/2020 [facility] 4:14 PM [facility] Urine Culture >100,000 CFU/mL 03/09/2020 [facility] Multiple 4:14 PM [facility] Bacterial Morphotypes Specimen Anatomical Collection Method Collection Time Receive d Time (Source) Location / / Volume Laterality Urine URINE SPECIMEN Non-blood 03/08/2020 9:45 AM 021 9:45 COLLECTION, CLEAN Collection / SOFTWARE QUALITY ASSURANCE ENGINEER AM SOFTWARE QUALITY ASSURANCE ENGINEER CATCH / Unknown Unknown Denisha Jossy Mcneil APRN, CNP LAB_1 Performing Organization Address [facility] Phon e Number [address] [address] Urinalysis Routine(Micro If Pos) (03/08/2020 9:45 AM SOFTWARE QUALITY ASSURANCE ENGINEER) [facility] Method Time Signature Urine Color Straw Straw-Yellow 03/08/2020 [facility] 11:32 AM LABORATORY SOFTWARE QUALITY ASSURANCE ENGINEER Urine Clarity Clear Clear 03/08/2020 [facility] 11:32 AM LABORATORY SOFTWARE QUALITY ASSURANCE ENGINEER Specific 1.025 1.005 - 03/08/2020 [facility] [place], 1.030 11:32 AM LABORATORY Urine SOFTWARE QUALITY ASSURANCE ENGINEER PH Urine 7.0 5.0 - 8.0 03/08/2020 [facility] 11:32 AM LABORATORY SOFTWARE QUALITY ASSURANCE ENGINEER Protein, Negative Neg/Trace 03/08/2020 [facility] Urine Qual 11:32 AM LABORATORY (mg/dL) SOFTWARE QUALITY ASSURANCE ENGINEER Glucose Urine Negative Negative 03/08/2020 [facility] Qual (mg/dL) 11:32 AM LABORATORY SOFTWARE QUALITY ASSURANCE ENGINEER Ketones, Negative Negative 03/08/2020 [facility] Urine (mg/dL) 11:32 AM LABORATORY SOFTWARE QUALITY ASSURANCE ENGINEER Urobilinogen, 0.2 <2.0 03/08/2020 [facility] Urine (EU/dL) 11:32 AM LABORATORY SOFTWARE QUALITY ASSURANCE ENGINEER Bilirubin Negative Negative 03/08/2020 [facility] Urine 11:32 AM LABORATORY SOFTWARE QUALITY ASSURANCE ENGINEER Blood, Urine Negative Neg/Trace 03/08/2020 [facility] 11:32 AM LABORATORY SOFTWARE QUALITY ASSURANCE ENGINEER Nitrite Urine Negative Negative 03/08/2020 [facility] 11:32 AM LABORATORY SOFTWARE QUALITY ASSURANCE ENGINEER Leukocyte Negative Negative 03/08/2020 [facility] Est. 11:32 AM LABORATORY SOFTWARE QUALITY ASSURANCE ENGINEER Urine Source Clean Catch 03/08/2020 [facility] 11:32 AM LABORATORY SOFTWARE QUALITY ASSURANCE ENGINEER Specimen Anatomical Collection Method Collection Time Receive d Time (Source) Location / / Volume Laterality Urine URINE SPECIMEN Non-blood 03/08/2020 9:45 AM 9:45 COLLECTION, CLEAN Collection / SOFTWARE QUALITY ASSURANCE ENGINEER AM SOFTWARE QUALITY ASSURANCE ENGINEER CATCH / Unknown Unknown Denisha Mcneil APRN, CNP LAB_1 Performing Organization Address City/[facility]/ZIP Code Phon e Number [facility] [address] [place] [address] Rubella Immune Status, IgG (03/08/2020 9:45 AM SOFTWARE QUALITY ASSURANCE ENGINEER) P athologist Signature Rubella Units 12.50 03/08/2020 [facility] 1:36 PM SOFTWARE QUALITY ASSURANCE ENGINEER LABORATORY Comment: The magnitude of the measured r esult, above the cutoff, is not indicative of the amount of antibody present. Rubella Intepretation Immune Immune 03/08/2020 1:3 6 PM SOFTWARE QUALITY ASSURANCE ENGINEER [facility] Specimen Anatomical Collection Method / Collection Time Recei andrade Time (Source) Location / Volume Laterality Blood Venipuncture / 03/08/2020 9:45 03/08/2020 9:45 Unknown AM SOFTWARE QUALITY ASSURANCE ENGINEER AM SOFTWARE QUALITY ASSURANCE ENGINEER Denisha Mcneil APRN, CNP LAB_1 Performing Organization Address City/State/ZIP Code Phon e Number [facility] [address] [place] [address] Treponema Screen (03/08/2020 9:45 AM SOFTWARE QUALITY ASSURANCE ENGINEER) Patholo gist Method Time Signature Treponema Screen 0.039 {s_co_ratio 03/08/2020 [facility] Result } 1:29 PM SOFTWARE QUALITY ASSURANCE ENGINEER LABORATORY Treponema Screen Non Non 03/08/2020 [facility] Interpretation Reactive Reactive 1:29 PM SOFTWARE QUALITY ASSURANCE ENGINEER LABORATORY Specimen Anatomical Collection Method / Collection Time Recei andrade Time (Source) Location / Volume Laterality Blood Venipuncture / 03/08/2020 9:45 03/08/2020 9:45 Unknown AM SOFTWARE QUALITY ASSURANCE ENGINEER AM SOFTWARE QUALITY ASSURANCE ENGINEER Denisha Fenton Daphne NICK CNP LAB_1 Performing Organization Address [facility] Phon e Number [facility] [address] [place] [address] HIV 1/2 Ag/Ab 4th Generation (03/08/2020 9:45 AM SOFTWARE QUALITY ASSURANCE ENGINEER) [facility] Method Time Signature HIV 1/2 Negative Negative 03/08/2020 [facility] Antigen/Antib (Non (Non 1:15 PM SOFTWARE QUALITY ASSURANCE ENGINEER LABORATORY shellie (4th Reactive) Reactive) generation) Comment: HIV-1 p24 Antigen and HIV-1/HIV -2 Antibody not detected Specimen Anatomical Collection Method / Collection Time Recei andrade Time (Source) Location / Volume Laterality Blood Venipuncture / 03/08/2020 9:45 03/08/2020 9:45 Unknown AM SOFTWARE QUALITY ASSURANCE ENGINEER AM SOFTWARE QUALITY ASSURANCE ENGINEER Denisha Fenton Daphne NICK CNP LAB_1 Performing Organization Address [facility] Phon e Number [facility] [address] [place] [address] HEP B SURFACE ANTIGEN, NO REFLEX (03/08/2020 9:45 AM SOFTWARE QUALITY ASSURANCE ENGINEER) [facility] Method Time Signature Hepatitis B Negative Negative 03/08/2020 [facility] Surface (Non (Non 1:15 PM SOFTWARE QUALITY ASSURANCE ENGINEER LABORATORY Antigen Reactive) Reactive) Specimen Anatomical Collection Method / Collection Time Recei andrade Time (Source) Location / Volume Laterality Blood Venipuncture / 03/08/2020 9:45 03/08/2020 9:45 Unknown AM SOFTWARE QUALITY ASSURANCE ENGINEER AM SOFTWARE QUALITY ASSURANCE ENGINEER Denisha Fenton Daphne NICK CNP LAB_1 Performing Organization Address [facility] Phon e Number [facility] [address] [place] [address] Antibody Screen (03/08/2020 9:45 AM SOFTWARE QUALITY ASSURANCE ENGINEER) [facility] Method Time Signature Antibody Screen Negative 03/08/2020 [facility] Interpretation 1:33 PM SOFTWARE QUALITY ASSURANCE ENGINEER BLOOD BANK Specimen Anatomical Collection Method / Collection Time Recei andrade Time (Source) Location / Volume Laterality Blood Venipuncture / 03/08/2020 9:45 03/08/2020 9:45 Unknown AM SOFTWARE QUALITY ASSURANCE ENGINEER AM SOFTWARE QUALITY ASSURANCE ENGINEER Denisha Fenton Daphne NICK CNP LAB_1 Performing Organization Address [facility] Phon e Number [facility] BLOOD [facility] [address] [place] [address] Blood Group & RH (Blood Type) (03/08/2020 9:45 AM SOFTWARE QUALITY ASSURANCE ENGINEER) athologist Signature ABO A 03/08/2020 [facility] 1:15 PM SOFTWARE QUALITY ASSURANCE ENGINEER BLOOD BANK RH Positive 03/08/2020 [facility] 1:15 PM SOFTWARE QUALITY ASSURANCE ENGINEER BLOOD BANK Specimen Anatomical Collection Method / Collection Time Recei andrade Time (Source) Location / Volume Laterality Blood Venipuncture / 03/08/2020 9:45 03/08/2020 9:45 Unknown AM SOFTWARE QUALITY ASSURANCE ENGINEER AM SOFTWARE QUALITY ASSURANCE ENGINEER Denisha Fenton Daphne NICK CNP LAB_1 Performing Organization Address [facility] Phon e Number [facility] BLOOD BANK [address] [place] [address] (ABNORMAL) HGB A1C (03/08/2020 9:45 AM SOFTWARE QUALITY ASSURANCE ENGINEER) [facility] Method Time Signature Hemoglobin A1C 6.9 (H) <=5.6 % 03/08/2020 [place] 1:36 PM SOFTWARE QUALITY ASSURANCE ENGINEER CENTRAL LAB Specimen Anatomical Collection Method / Collection Time Recei andrade Time (Source) Location / Volume Laterality Blood Venipuncture / 03/08/2020 9:45 03/08/2020 9:45 Unknown AM SOFTWARE QUALITY ASSURANCE ENGINEER AM SOFTWARE QUALITY ASSURANCE ENGINEER Narrative ON LICENSE OF [facility] CENTRAL LAB - 03/08/2020 1:36 PM SOFTWARE QUALITY ASSURANCE ENGINEER For patients not previously diagnosed with diabetes: 5.7-6.4%: Increased risk for diabetes 6.5% and greater: Diagnostic for diabete s For patients diagnosed with diabetes: <8.0%: Goal of therapy for ages 18-75 Clinicians may recommend a higher or low er goal for specific individuals. Denisha Jossy Mcneil APRN, CNP LAB_1 Performing Organization Address [facility]/State/ZIP Code Phon e Number [facility] [address] [place] [address] documented in this encounter Visit Diagnoses Diagnosis [...] disease documented in this encounter Care Teams Depot Manager Relationship Specialty Start Date End Date Palmira Lim MD PCP - General 05/08/[address] [place], [place] [address] [address] documented as of this encounter
--- OUTSIDE RECORDS SUMMARY | 2021-12-12 09:55 | XMS_ITS | Encounter Summary ---
:1999 Author Organization [email or web address] Address [address] [place] [address] Care Team Providers Name Role Phone Palmira Lim MD Primary Care Provider Reason for Visit Reason Comments Routine Visit 20w 5d Encounter Details Date Type Department Care Team Description 04/23/2020 Routine [facility] Ying Belle, Routine Services-RAILROAD CAR TRUCK BUILDER MD Visit (20w 5d) [address], [address] [place] [phone] [id number] Social History Tobacco Use Types Packs/Day Years [...] Comments Blood Pressure 119/69 04/23/2020 3:05 PM CAPACITOR ASSEMBLER Pulse 90 04/23/2020 3:05 PM CAPACITOR ASSEMBLER Temperature - - Respiratory Rate - - Oxygen Saturation - - Inhaled Oxygen Concentration - - Weight 79.8 kg (176 lb) 04/23/2020 3:05 PM CAPACITOR ASSEMBLER Height - - Body Mass Index 30.21 03/28/2020 2:57 PM CAPACITOR ASSEMBLER documented in this encounter Progress Notes Ying Belle MD - 04/23/2020 3:00 PM CST [facility] CC: Follow-up care 20 5/7 weeks T1DM Hypothyroid Hx HSV 2 Low dose asa S: Nabila Serna is feeling well today. Has level 2 04/25. She denies loss of fluid, changes in vaginal discharge or vaginal bleeding. Reports good movement. Says glucose levels good. If 200s at bedtime, does not have night time lows. If lower BG at bedtime, has night time lows. Working with endocrinology. Works at [employer] precautions reviewed. complications: Patient Active Problem List [...] from 12-16 weeks through term - Primary Shoe Lining Fitter:?Khoi Quevedo Shoe Lining Fitter, Dr. Maldonado.?Highly advised that patient keep all appointments as scheduled. - Growth US: Every 4 weeks starting at 28 weeks - testing: BPP weekly at 32 weeks for well controlled, 28 weeks for poorly controlled - Timing of delivery: Between 39b0w-62b1t for well controlled, 73x9i-61k0w for poorly controlled?? Hypothyroid. --subclinical. Synthroid 50 mcg daily +2 on weekends, per endo. TSH 3.21 on 03/06/2020 ?? General herpes. ?? -Call for outbreaks and will order Valtrex. ??Plan for Valtrex or acyclovir 36 weeks until delivery. Follow-up in clinic in 4 weeks. Ying Belle MD 4:55 PM 04/23/2020 Ying Belle MD 04/23/2020 4:55 PM CITOR ASSEMBLER documented in this encounter Plan of Treatment [...] (HRC) documented in this encounter Care Teams Audio/Video Engineer Relationship Specialty Start Date End Date Palmira Lim MD PCP - General 05/08/06 [address] [place] [address] documented as of this encounter
--- OUTSIDE RECORDS SUMMARY | 2021-12-12 09:55 | XMS_ITS | Encounter Summary ---
:1999 Author Organization [employer] Address [address] [place] [address] Care Team Providers Name Role Phone Palmira Lim MD Primary Care Provider Reason for Visit Reason Comments Appt. Work In Request Encounter Details Date Type Department Care Team Description 03/14/2020 Telephone [facility] 3931 Kamila Delgadillo, Appt. Work In Request Maternal MD Medicine [address] [address]32[address] [phone] Social History Tobacco Use Types Packs/Day Years [...] Lovenox teaching with me at 3pm at [facility] [address]. Pt appeared lethargic on the phone and stated can you actually help me reschedule my appt. Today, I work retail shift leader and can't make it. Appt was noted to be at 1:50pmand call was placed at 1:35pm. Note routed to Katie from for assistance with scheduling/reminderhelp. NKLING TRUCK DRIVER Twila Chambers RN - 03/16/2020 12:06 PM CST LVM to schedule Lovenox teaching and MFM consult. Informed to call our nurse line catia. NKLING TRUCK DRIVER April Clarke RN - 03/15/2020 9:03 AM CST Seen at [facility] 03/09/20, called patient's number per their patient demographics and mother Twila answered phone. Patient has new cell phone and this was given to property underwriter; demographics updated ([phone]). Attempted to request outside records/search at [facility], No matching patients found NKLING TRUCK DRIVER Twila Chambers RN - 03/14/2020 10:04 AM [...] Note routed to primary OB. Note closed. NKLING TRUCK DRIVER documented in this encounter Plan of Treatment Not on filedocumented as of this encounter Visit Diagnoses Not on filedocumented in this encounter Care Teams Audiology Assistant Relationship Specialty Start Date End Date Palmira Lim MD PCP - General 05/08/[address] [place] [address] documented as of this encounter
--- OUTSIDE RECORDS SUMMARY | 2021-12-12 09:55 | XMS_ITS | Encounter Summary ---
:1999 Author Organization [employer] Address [address] [place] [address] Care Team Providers Name Role Phone Palmira Lim MD Primary Care Provider Reason for Visit Reason Comments Diabetes Eye Exam Encounter Details Date Type Department Care Team Description 06/07/2020 Office Visit Satish Enrique, Diabetic eye exam (HRC) (Primary Dx); Ophthalmology OD Type 1 diabetes mellitus without retinop athy (HRC); [address] [address] [place] Myopia of both eyes; [place] [address] [place], [place] Regular astigmatism of left eye [phone] [address] (Wo rk) Social History Tobacco Use [...] astigmatism documented in this encounter Care Teams Inking Machine Tender Relationship Specialty Start Date End Date Palmira Lim MD PCP - General 05/08/[address] [address] documented as of this encounter
--- OUTSIDE RECORDS SUMMARY | 2021-12-12 09:55 | XMS_ITS | Encounter Summary ---
:1999 Author Organization [employer] Address [address] [place] [address] Care Team Providers Name Role Phone Palmira Lim MD Primary Care Provider Reason for Visit Reason Comments Forms [facility] Encounter Details Date Type Department Care Team Description 03/29/2020 Telephone [facility] Ying Belle, For ms ([facility]ark Services-STRAW HAT PRESSER [facility]) [address] [facility], [address] [place] [address] [phone] Social History Tobacco Use Types Packs/Day Years [...] Outside records (38pg) rc'd via fax as MFM requested, given to FLORENCIO, ([facility]) for review for appt. NEERING PROFESSOR documented in this encounter Plan of Treatment Not on filedocumented as of this encounter Visit Diagnoses Not on filedocumented in this encounter Care Teams Cook'S Assistant Relationship Specialty Start Date End Date Palmira Lim MD PCP - General 05/08/06 [address] [facility] [place] [address] documented as of this encounter
--- OUTSIDE RECORDS SUMMARY | 2021-12-12 09:55 | XMS_ITS | Encounter Summary ---
:1999 Author Organization [employer] Address [address] [place] [address] Care Team Providers Name Role Phone Palmira Lim MD Primary Care Provider Encounter Details Date Type Department Care Team Description 03/29/2020 Notes/Orders [facility] [address] [facility]ology MKAIN hypothyroidism (Primary [address] [facility] [address] [facility] [address]x) [place] [phone] Social History Tobacco Use Types Packs/Day Years [...] hypothyroidism documented in this encounter Care Teams Coding Consultant Relationship Specialty Start Date End Date Palmira Lim MD PCP - General 05/08/[address] [address] documented as of this encounter
--- OUTSIDE RECORDS SUMMARY | 2021-12-12 09:55 | XMS_ITS | Encounter Summary ---
:1999 Author Organization [employer] Address [address] [place] [address] Care Team Providers Name Role Phone Palmira Lim MD Primary Care Provider Reason for Visit Reason Comments Appt. Needed Encounter Details Date Type Department Care Team Description 03/06/2020 Telephone [facility] Nabila Stokes, Appt. Needed Services-MUSHROOM GROWER [address] [facility] [address] [place] [address] [place] [address] [address] [place] [address] [place] [address] (Wo rk) Social History Tobacco Use Types Packs/Day Years Used Date Smoking Tobacco: Former Cigarettes 0.3 1 Smokeless Tobacco: Never Alcohol Use Standard Drinks/Week Comments Not Currently 0 (1 standard drink = 0.6 oz pure alcoho l) on ocass Sex Assigned at Date Recorded Female 09/14/2020 7:23 AM CDT documented as of this encounter Nursing Notes Cristine Hensley MA - 03/06/2020 5:01 PM CST Spoke with pt, as she has not had NOB1 appt and this was scheduled for 03/08/20. NOB2 appt scheduled 03/19/20. Nabila Stokes MD sent to [facility] ?? The patient has not been seen since December for her notably high-risk with type 1 diabetes. ??She did have the ultrasound completed with perinatology today, which is overall reassuring. ??She needs a follow-up new OB 2 visit in the very near future, preferably within the next week. Please and thank you R SCHOOL DRIVER Cristine Hensley MA - 03/06/2020 5:01 PM CST ----- Message from Nabila Stokes MD sent at 03/06/2020 4:11 PM AFTER SCHOOL DRIVER ----- The patient has not been seen since December for her notably high-risk with type 1 diabetes. She did have the ultrasound completed with perinatology today, which is overall reassuring. She needs a follow-up new OB 2 visit in the very near future, preferably within the next week. Please and thank you! R SCHOOL DRIVER documented in this encounter Plan of Treatment Not on filedocumented as of this encounter Visit Diagnoses Not on filedocumented in this encounter Care Teams Vice Provost Relationship Specialty Start Date End Date Palmira Lim MD PCP - General 05/08/06 [address], [place] [address] documented as of this encounter
--- OUTSIDE RECORDS SUMMARY | 2021-12-12 09:55 | XMS_ITS | Encounter Summary ---
:1999 Author Organization [employer] Address [address] [place] [address] Care Team Providers Name Role Phone Palmira Lim MD Primary Care Provider Reason for Visit Reason Comments LAB RESULTS Encounter Details Date Type Department Care Team Description 03/12/2020 Telephone [facility] Denisha Serna APRN, LAB RESULTS Services-COUNTER WAITRESS/WAITER DURABILITY ENGINEER [address] [place] [address], [place] [address] [place] [address] [place], [place] [phone] Social History Tobacco Use Types Packs/Day Years [...] well at her next MD appt. Denisha Serna, CREDIT CARD INTERVIEWER, DURABILITY ENGINEER sent to [facility] ?? New ob labs were within normal range except for the following: ??Thrombophilia panel Low protein S antigen otherwise panel normal. ??This value can be skewed during will be rechecked . ??Hemoglobin A1c 6.9 with type 1 diabetes. ??Please call patient with results. ??MS-DURABILITY ENGINEER ?? MOLDER Cristine Hensley MA - 03/12/2020 11:58 AM CST ----- Message from Denisha Serna APRN, CNP sent at 03/12/2020 8:03 AM SOLE MOLDER ----- New ob labs were within normal range except for the following: Thrombophilia panel Low protein S antigen otherwise panel normal. This value can be skewed during will be rechecked . Hemoglobin A1c 6.9 with type 1 diabetes. Please call patient with results. MS-DURABILITY ENGINEER MOLDER documented in this encounter Plan of Treatment Not on filedocumented as of this encounter Visit Diagnoses Not on filedocumented in this encounter Care Teams Warehouse Order Filler Relationship Specialty Start Date End Date Palmira Lmi MD PCP - General 05/08/06 [address], [place] [address] documented as of this encounter
--- OUTSIDE RECORDS SUMMARY | 2021-12-12 09:55 | XMS_ITS | Encounter Summary ---
:1999 Author Organization [email or web address] Address [address] [place] [address] Care Team Providers Name Role Phone Palmira Lim MD Primary Care Provider Reason for Visit Reason Comments Future Appointments Encounter Details Date Type Department Care Team Description 03/19/2020 Telephone [facility]'s O'Julian Nabila Collette A ppointments Services-DIRECTOR OF LOGISTICS MD Mar[place] [address] [place] [address], [address] [place] [address] [address] [place], [place] [phone] Social History Tobacco Use Types Packs/Day Years [...] best and states will come to appointment. UNITY DEVELOPMENT TECHNICIAN Twila Suarez - 03/19/2020 10:13 AM CST Received message from provider regarding patient missing appointment this AM. 15.5 weeks with T1DM and multiple other co morbidities. Reviewed importance of routine visits. Patient requesting appointment this afternoon. Appointment scheduled. Future Appointments Provider Department Center 03/19/2020 1:50 PM Pratibha Patel DO [facility]-DIRECTOR OF LOGISTICS [facility] FR 03/28/2020 2:45 PM Lilian Maldonado MBBS [facility] 05/16/2020 3:15 PM Lilian Maldonado MBBS [facility] UNITY DEVELOPMENT TECHNICIAN documented in this encounter Plan of Treatment Not on filedocumented as of this encounter Visit Diagnoses Not on filedocumented in this encounter Care Teams Personal Care Worker Relationship Specialty Start Date End Date Palmira Lim MD PCP - General 05/08/06 [address], [place] [address] documented as of this encounter
--- OUTSIDE RECORDS SUMMARY | 2021-12-12 09:56 | XMS_ITS | Encounter Summary ---
:1999 Author Organization [employer] Address [address] [place] [address] Care Team Providers Name Role Phone Palmira Lim MD Primary Care Provider Reason for Referral Consult/Transfer Care (Routine) - Closed Specialty Diagnoses / Procedures Referred By Contact Refer red To Contact Diagnoses Type 1 diabetes mellitus without complication (HRC) Pre-existing diabetes mellitus during in first trimester Sonja Beltran APRN, CNP [address] [place], [place] [address] Referral ID Status Reason Start Date Expiration Date Visits Requ ested Visits Authorized [id number] Closed 02/03/2020 05/04/2021 1 1 Scheduling Instructions Your provider has recommended an appoint ment with Miladis Quevedo [facility]. You may call [phone] to schedule yo ur appointment. We suggest you call your health insurance company about your cove rage and benefits for this appointment. BULK DRIVER Reason for Visit Reason Comments Diabetes Encounter Details Date Type Department Care Team Description 02/03/2020 Telemedicine [place] Sonja Betlran, Type 1 diabe yosi mellitus without complication (HRC) (Primary Dx); Endocrinology MITZI NICK Subclinical hypothyroidism; [address] Pre-existing diabetes [facility] during [place] [address] [facility] [phone] [place] [address] Social History Tobacco Use Types Packs/Day Years [...] carb plus SS >140. Reported Glucose Results: BULK DRIVER Sonaj Beltran APRN, SIGNAL ENGINEER - 02/03/2020 3:30 PM CST Pt has not set up [employer]. Used [employer] video. February 03, 2020 Chief Complaint: Nabila Tin Serna a 19 y.o. 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 Has not had [...] plus 1/40 over 140 Has been using [employer] to look up foods and count carbs more in the last week. Full med list reviewed in [employer]. No other meds. Objective: Female patient, appears [...] and A1c in mid to late January. BULK DRIVER documented in this encounter Plan of Treatment Scheduled Referrals Name Type Priority Associated Diagnoses Order S [facility] Diabetes Education Referral Routine Type 1 diabetes [facility] Ordered: 02/03/2020 Visit without complication (HRC) Pre-existing [...] trimester documented in this encounter Care Teams Geospatial Specialist Relationship Specialty Start Date End Date Palmira Lim MD PCP - General 05/08/[address] [place] [address] documented as of this encounter
--- OUTSIDE RECORDS SUMMARY | 2021-12-12 09:56 | XMS_ITS | Encounter Summary ---
:1999 Author Organization [email or web address] Address [address] [place] [address] Care Team Providers Name Role Phone Palmira Lim MD Primary Care Provider Reason for Visit Procedure/Equipment (Routine) - Incomplete Specialty Diagnoses / Procedures Referred By Contact Refer red To Contact Diagnoses Missed menses Type 1 diabetes mellitus without complication (HRC) Nabila Stokes MD Procedures US OB <14 Weeks W EV Single US OB < 14 Weeks Single [address] [place] [address] [address] Referral ID Status Reason Start Date Expiration Date Visits V isits Requested Authorized [id number] Incomplete 01/19/2020 04/19/2021 1 1 Encounter Details Date Type Department Care Team Description 01/23/2020 Ancillary [facility] Nabila Stokes Missed m enses; Procedure Services-Ultrasound MD Maricruz Type 1 diabetes mellitus without complic ation (HRC) [address] [place] [address] [address], [address] [address] [phone] Social History Tobacco Use Types Packs/Day Years [...] mens es Results for this EV SINGLE ASSOCIATE PROFESSOR OF COMMUNICATION Type 1 diabetes procedure ar e in mellitus without the results complication (HRC) section. documented in this encounter Results US OB <14 Weeks W EV Single (01/23/2020 1:15 PM ASSOCIATE PROFESSOR OF COMMUNICATION) Anatomical Region Laterality Modality Pelvis Ultrasound Specimen (Source) Anatomical Collection Method Collection Time Re ceived Time Location / / Volume Laterality 01/23/2020 12:27 PM ASSOCIATE PROFESSOR OF COMMUNICATION Impressions 01/23/2020 1:24 PM ASSOCIATE PROFESSOR OF COMMUNICATION COMPARISON: None TECHNIQUE: ??Transabdominal and transvag inal imaging was performed. ?? FINDINGS: Gestational sac: Unremarkable. [place]-rump length measures 1.2 cm, corre sponding to [...] imaging was performed. FINDINGS: Gestational sac: Unremarkable. [place]-rump length measures 1.2 cm, corre sponding to [...] wee ks 3 days. Nabila Stokes MD [facility] documented in this encounter Visit Diagnoses Diagnosis Missed menses Absence of menstruation Type 1 diabetes mellitus without complic ation (HRC) Type I (juvenile type) diabetes mellitus without mention of complication, not stated as uncontrolled documented in this encounter Care Teams Mortgage Processing Manager Relationship Specialty Start Date End Date Palmira Lim MD PCP - General 05/08/[address] [address] documented as of this encounter
--- OUTSIDE RECORDS SUMMARY | 2021-12-12 09:56 | XMS_ITS | Encounter Summary ---
:1999 Author Organization [employer] Address [address] [place] [address] Care Team Providers Name Role Phone Palmira Lim MD Primary Care Provider Reason for Visit Reason Comments RESULTS, TEST Encounter Details Date Type Department Care Team Description 01/17/2020 Telephone [facility] O'Nabila Jordan, RESULTS, TEST Services-EXHIBIT SPECIALIST [address] [place] [address], [address] [place] [address] [address] [place] [address] [place] [address] (Wo rk) Social History Tobacco [...] will be helpful for MD and appt. R SYSTEM DISPATCHER Tiffany Meyer LPN - 01/17/2020 10:18 AM CST ----- Message from Nabila Stokes MD sent at 01/17/2020 9:03 AM POWER SYSTEM DISPATCHER ----- Can we please have the patient try and get a HCG level completed today before her appointment with me at 4:00? The order is in! Please and thank you! R SYSTEM DISPATCHER documented in this encounter Plan of Treatment Not on filedocumented as of this encounter Visit Diagnoses Not on filedocumented in this encounter Care Teams Extension Forester Relationship Specialty Start Date End Date Palmira Lim MD PCP - General 05/08/06 [address] [address] documented as of this encounter
--- OUTSIDE RECORDS SUMMARY | 2021-12-12 09:56 | XMS_ITS | Encounter Summary ---
:1999 Author Organization [employer] Address [address] [place] [address] Care Team Providers Name Role Phone Palmira Lim MD Primary Care Provider Encounter Details Date Type Department Care Team Description 03/05/2020 Notes/Orders [place] [facility] Kamila Delgadillo Su pervision of high risk in first trimester (Primary Dx); Medicine Encounter for screening of mot her [address] [place] [address] [address] [place] [address] [phone] (Wo rk) Social History Tobacco Use Types [...] encounter Results Maternal Screen (03/06/2020 3:33 PM INSPECTOR LINE) [facility] Method Time Signature Maternal See Scanned 03/10/2020 [facility] Screen Report 1:41 PM INSPECTOR LINE Specimen Anatomical Collection Method / Collection Time Recei andrade Time (Source) Location / Volume Laterality Blood Venipuncture / 03/06/2020 3:33 03/06/2020 3:33 Unknown PM INSPECTOR LINE PM INSPECTOR LINE Narrative This result has an attachment that is no t available. Kamila Delgadillo MD LAB_1 Performing Organization Address City/State/ZIP Code Phon e Number [facility] [address] [place] [address] documented in this encounter Visit Diagnoses Diagnosis Supervision of high risk in rst trimester - Primary Unspecified high-risk Encounter for screening of mot her Unspecified screening documented in this encounter Care Teams Physical Security Manager Relationship Specialty Start Date End Date Palmira Lim MD PCP - General 05/08/[address] [place] [address] documented as of this encounter
--- OUTSIDE RECORDS SUMMARY | 2021-12-12 09:56 | XMS_ITS | Encounter Summary ---
:1999 Author Organization [facility] [facility] Address [address] [place] [address] Care Team Providers Name Role Phone Palmira Lim MD Primary Care Provider Encounter Details Date Type Department Care Team Description 01/17/2020 Orders Only Initial Department Provider, Aubrey, [facility] KHOI LUDWIG MD [place], [place] [address] Interface provider [phone] [place] [address] Social History Tobacco Use Types Packs/Day Years [...] that is no t available. Interface Provider DUMMY/OTHER/AR documented in this encounter Visit Diagnoses Not on filedocumented in this encounter Care Teams Manager Specialty Relationship Specialty Start Date End Date Palmira Lim MD PCP - General 05/08/06 [address], [place] [address] documented as of this encounter
--- OUTSIDE RECORDS SUMMARY | 2021-12-12 09:56 | XMS_ITS | Encounter Summary ---
:2000 Author Organization [facility] Address [address] [place] [address] Care Team Providers Name Role Phone Palmira Lim MD Primary Care Provider Encounter Details Date Type Department Care Team Description 03/06/2020 Lab Visit [facility] Type 1 di abetes mellitus without complication (HRC); [facility] Supervision of high risk pre gnancy in first trimester; [address] [place] [address] for screening of mother [address] [place] [address] Social History Tobacco Use Types Packs/Day Years Used Date Smoking Tobacco: Former Cigarettes 0.3 1 Smokeless Tobacco: Never Alcohol Use Standard Drinks/Week Comments Not Currently 0 (1 standard drink = 0.6 oz pure alcoho l) on ocass Sex Assigned at Date Recorded Female 09/14/2020 7:23 AM CDT documented as of this encounter Progress Notes Twila Fontana CGC - 03/06/2020 3:30 PM CST Normal Maternal Screen results sent to patient via snail mail since [employer] is inactive. DENSITY TALC COATER OPERATOR documented in this encounter Plan of Treatment Not on filedocumented as of this encounter Procedures Procedure Name Priority Date/Time Associated Diagnosis Comme nts MATERNAL Routine 03/06/2020 3:33 PM Supervision of high Results for this SCREEN HIGH DENSITY TALC COATER OPERATOR risk in procedure are in first trimester the results Encounter for section. screening of mother TSH, SENSITIVE Routine 03/06/2020 3:33 PM Type 1 diabetes Resu lts for this (WITH REFLEX) HIGH DENSITY TALC COATER OPERATOR mellitus without procedure are in complication (HRC) the resul ts section. HGB A1C Routine 03/06/2020 3:33 PM Type 1 diabetes Result s for this HIGH DENSITY TALC COATER OPERATOR mellitus without procedure a re in complication (HRC) the resul ts section. documented in this encounter Results Maternal Screen (03/06/2020 3:33 PM HIGH DENSITY TALC COATER OPERATOR) [facility] gist Method Time Signature Maternal See Scanned 03/10/2020 [facility] Screen Report 1:41 PM HIGH DENSITY TALC COATER OPERATOR Specimen Anatomical Collection Method / Collection Time Recei andrade Time (Source) Location / Volume Laterality Blood Venipuncture / 03/06/2020 3:33 03/06/2020 3:33 Unknown PM HIGH DENSITY TALC COATER OPERATOR PM HIGH DENSITY TALC COATER OPERATOR Narrative This result has an attachment that is no t available. Kamila Delgadillo MD LAB_1 Performing Organization Address City/[facility] Phon e Number [facility] [address] [place] [address] (ABNORMAL) Hemoglobin A1C Glycosylated (03/06/2020 3:33 PM HIGH DENSITY TALC COATER OPERATOR) Patholo gist Method Time Signature Hemoglobin A1C 6.9 (H) <=5.6 % 03/07/2020 [facility] 8:13 AM HIGH DENSITY TALC COATER OPERATOR CENTRAL LAB Specimen Anatomical Collection Method / Collection Time Recei andrade Time (Source) Location / Volume Laterality Blood Venipuncture / 03/06/2020 3:33 03/06/2020 3:33 Unknown PM HIGH DENSITY TALC COATER OPERATOR PM HIGH DENSITY TALC COATER OPERATOR Narrative [facility] - 03/07/2020 8:13 AM HIGH DENSITY TALC COATER OPERATOR For patients not previously diagnosed with diabetes: 5.7-6.4%: Increased risk for diabetes 6.5% and greater: Diagnostic for diabete s For patients diagnosed with diabetes: <8.0%: Goal of therapy for ages 18-75 Clinicians may recommend a higher or low er goal for specific individuals. Sonja Beltran APRN, RAIL TRACK LAYER LAB_1 Performing Organization Address City/State/ZIP Code Phon e Number [facility] [address] [place] [address] TSH with Free T4 (if TSH Abnormal) (03/06/2020 3:33 PM HIGH DENSITY TALC COATER OPERATOR) P athologist Signature TSH, Reflex 3.21 0.30 - 4.50 03/06/2020 [facility] uIU/mL 7:25 PM HIGH DENSITY TALC COATER OPERATOR LABORATORY Specimen Anatomical Collection Method / Collection Time Recei andrade Time (Source) Location / Volume Laterality Blood Venipuncture / 03/06/2020 3:33 03/06/2020 3:33 Unknown PM HIGH DENSITY TALC COATER OPERATOR PM HIGH DENSITY TALC COATER OPERATOR Narrative [facility] - 03/06/2020 7:25 P M HIGH DENSITY TALC COATER OPERATOR Lab will automatically reflex to Free T4 when TSH results are <0.30 uIU/mL or >4.50 mIU/mL. Sonja Beltran APRN, RAIL TRACK LAYER LAB_1 Performing Organization Address City/State/ZIP Code Phon e Number [facility] [address] [place] [address] documented in this encounter Visit Diagnoses Diagnosis Type 1 diabetes mellitus without complic ation (HRC) Type I (juvenile type) diabetes mellitus without mention of complication, not stated as uncontrolled Supervision of high risk in fi rst trimester Unspecified high-risk Encounter for screening of mot her Unspecified screening documented in this encounter Care Teams Teacher Emotionally Impaired Relationship Specialty Start Date End Date Palmira Lim MD PCP - General 05/08/[address] [place], [place] [address] documented as of this encounter
--- OUTSIDE RECORDS SUMMARY | 2021-12-12 09:56 | XMS_ITS | Encounter Summary ---
:1999 Author Organization [facility] Address [address] [place] [address] Care Team Providers Name Role Phone Palmira Lim MD Primary Care Provider Reason for Visit Reason Comments LAB RESULTS Encounter Details Date Type Department Care Team Description 01/18/2020 Telephone [facility]Nabila Jordan MD LAB RESULTS Services-OPERATIONS AND MAINTENANCE MANAGER [id number] [place] [address] [address] AKINS [address] [place] [address] [address] [place] [address] [phone] Social History Tobacco Use Types Packs/Day Years Used Date Smoking Tobacco: Former Cigarettes 0.3 1 Smokeless Tobacco: Never Alcohol Use Standard Drinks/Week Comments Not Currently 0 (1 standard drink = 0.6 oz pure alcoho l) on ocass Sex Assigned at Date Recorded Female 09/14/2020 7:23 AM CDT documented as of this encounter Nursing Notes Twila Suarez - 01/18/2020 10:38 AM CST Called patient, reviewed provider's note below. Patient verbalizes understanding and agrees with plan. Transfer to [facility] to schedule ultrasound and appointment. Scheduling number for 1st OB visit given to patient as well. OR PROGRAMMER Twila Suarez - 01/18/2020 10:37 AM CST ----- Message from Nabila Stokes MD sent at 01/18/2020 10:29 AM SENIOR PROGRAMMER ----- Can we please call the patient [...] help her schedule? Please and thank you! OR PROGRAMMER documented in this encounter Plan of Treatment Not on filedocumented as of this encounter Visit Diagnoses Not on filedocumented in this encounter Care Teams Supervisor Powder And Primer Canning Relationship Specialty Start Date End Date Palmira Lim MD PCP - General 05/08/06 [address] [address] documented as of this encounter
--- OUTSIDE RECORDS SUMMARY | 2021-12-12 09:56 | XMS_ITS | Encounter Summary ---
:1999 Author Organization [employer] Address [address] [place] [address] Care Team Providers Name Role Phone Palmira Lim MD Primary Care Provider Reason for Visit Reason Comments RESULTS, TEST Encounter Details Date Type Department Care Team Description 01/19/2020 Telephone [facility] Nabila Stokes, RESULTS, TEST Services-SCRIPT SUPERVISOR [address] [place] [address], [address] [place] [address] [address] [place] [address] [place] [address] (Wo rk) Social History Tobacco [...] were not included. Nabila Stokes MD P Burfr Obgyn [facility] ?? Please call the patient and let her know that MFM desires a dating US with Radiology prior to her consultation, I have put this order and and she should have this completed as soon as able. Please and thank you! Spoke with Pt and provided appointment line to Radiology (ultrasound). Per MFM, Pt will schedule this dating US prior to MFM consult. [facility] has not reached Pt for scheduling; the dating US will be scheduled for the soonest available time. Order placed per Nabila Stokes MD. Pt agrees to plan. No questions. P TENDER documented in this encounter Plan of Treatment Not on filedocumented as of this encounter Visit Diagnoses Not on filedocumented in this encounter Care Teams Chip Unloader Relationship Specialty Start Date End Date Palmira Lim MD PCP - General 05/08/06 [address], [place] [address] documented as of this encounter
--- OUTSIDE RECORDS SUMMARY | 2021-12-12 09:56 | XMS_ITS | Encounter Summary ---
:1999 Author Organization [facility] Address [address] [place] [address] Care Team Providers Name Role Phone Palmira Lim MD Primary Care Provider Encounter Details Date Type Department Care Team Description 01/16/2020 Notes/Orders [facility] [address] Sonja Beltran, CALL CENTRE SUPERVISOR, Endocrinology PRICING MANAGER [address] [place] [address] [place], [place] [id number] (Wo rk) Social History Tobacco Use Types Packs/Day Years Used Date Smoking Tobacco: Every Day Cigarettes 0.3 1 Smokeless Tobacco: Never Alcohol Use Standard Drinks/Week Comments Yes 0 (1 standard drink = 0.6 oz pure alcoho l) on ocass Sex Assigned at Date Recorded Female 09/14/2020 7:23 AM CDT documented as of this encounter Progress Notes Aleida Pace RN - 01/16/2020 8:55 AM CST Pharmacy called requesting a PA for Pt's Tresiba. One was initiated today. RKER OPERATOR documented in this encounter Plan of Treatment Not on filedocumented as of this encounter Visit Diagnoses Not on filedocumented in this encounter Care Teams Insulation Batting Machine Operator Relationship Specialty Start Date End Date Palmira Lim MD PCP - General 05/08/06 [address] [address] documented as of this encounter
--- OUTSIDE RECORDS SUMMARY | 2021-12-12 09:56 | XMS_ITS | Encounter Summary ---
:1999 Author Organization [employer] Address [address] [place] [address] Care Team Providers Name Role Phone Palmira Lim MD Primary Care Provider Reason for Visit Reason Comments Future Appointments Encounter Details Date Type Department Care Team Description 01/16/2020 Telephone [facility] Chava'Julian Nabilamaura Murdock A ppointments Services-MOTOR POOL CLERK MD Maricruz [address] [place] [address], [address] [place] [address] [address] [place], [place] [phone] Social History Tobacco Use Types Packs/Day Years [...] plan. Transfer to lab to schedule appointment. ND WORKER Twila Suarez - 01/16/2020 9:52 AM CST ----- Message from Nabila Stokes MD sent at 01/16/2020 9:10 AM SECOND WORKER ----- The patient is on my schedule tomorrow for early OB consult - she had a positive UPT on 01/03 but we have no objective documentation of . Can she complete a HCG today so I have a basis of what to look for, if anything tomorrow? Please and thank you! ND WORKER documented in this encounter Plan of Treatment Not on filedocumented as of this encounter Results (ABNORMAL) hCG, Quant Serum [HCG] (01/17/2020 12:44 PM SECOND WORKER) [facility] Method Time Signature HCG, 35,463 <=4 01/17/2020 [facility] Quantitative (H) mIU/mL 4:19 PM SECOND WORKER LABORATORY Specimen Anatomical Collection Method / Collection Time Recei andrade Time (Source) Location / Volume Laterality Blood Venipuncture / 01/17/2020 12:44 0 Unknown PM SECOND WORKER 12:44 PM SECOND WORKER Narrative [facility] - 01/17/2020 4:19 P M SECOND WORKER Expected ranges Negative: <5 mIU/mL Indeterminate: 5-25 mIU/mL Positive: >25 mIU/mL Suggest repeat testing of indeterminate result in 72 hours. Nabila Stokes MD LAB_1 Performing Organization Address City/State/ZIP Code Phon e Number [facility] [address] [place] [address] documented in this encounter Visit Diagnoses Diagnosis Missed menses - Primary Absence of menstruation documented in this encounter Care Teams Clinical Administrator Relationship Specialty Start Date End Date Palmira Lim MD PCP - General 05/08/[address] [place] [address] documented as of this encounter
--- OUTSIDE RECORDS SUMMARY | 2021-12-12 09:56 | XMS_ITS | Encounter Summary ---
:1999 Author Organization [employer] Address [address] [place] [address] Care Team Providers Name Role Phone Palmira Lim MD Primary Care Provider Reason for Visit Reason Comments Follow-up DIABETES, MELLITUS Encounter Details Date Type Department Care Team Description 01/20/2020 Telemedicine [facility] Sonja Beltran, Type 1 diabe yosi mellitus without complication (HRC) (Primary Dx); Endocrinology MACHINE ICER, CNA Subclinical hypothyroidism; [address] Pre-existing diabetes [facility] during [place] [address] [address] [phone] [place] [address] Social History Tobacco Use Types [...] PT WILL CALL BACK WITH METER READINGS RER OPERATOR Shaji Villatoro - 01/20/2020 11:00 AM CST Called patient for prep. No answer. Left VM to call back. RER OPERATOR Sonja Beltran, MACHINE ICER, CNA - 01/20/2020 11:00 AM CST ATTEMPTED VIDEO CALL. No answer at 1108 am Attempted video call again 1115 am, Got VM. Left msg for pt to call Attempted regular phone call 1124am.- pt then called me back . 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 Has not had [...] plus 1/40 over 140 Has been using [employer] to look up foods and count carbs more in the last week. Full med list reviewed in [employer]. No other meds. Objective: Female patient, appears [...] works much better for her with her reinsurance claims analyst. Now that she is I do not want her to try Levemir. 2. Pt to start Levothyroxine 125 mcg daily. Check TSH in 4 weeks. 3. Decrease Tresiba to 30 units once at midnight daily. 4. Add NPH 6 units right before sleep each day. 5. Follow up in 10-14 days. Call sooner if BGs over 180 or under 65. RER OPERATOR documented in this encounter Plan of Treatment Not on filedocumented as of this encounter Results (ABNORMAL) Hemoglobin A1C Glycosylated (03/06/2020 3:33 PM LABORER OPERATOR) [facility] gist Method Time Signature Hemoglobin A1C 6.9 (H) <=5.6 % 03/07/2020 [facility] 8:13 AM LABORER OPERATOR CENTRAL LAB Specimen Anatomical Collection Method / Collection Time Recei andrade Time (Source) Location / Volume Laterality Blood Venipuncture / 03/06/2020 3:33 03/06/2020 3:33 Unknown PM LABORER OPERATOR PM LABORER OPERATOR Narrative [facility] - 03/07/2020 8:13 AM LABORER OPERATOR For patients not previously diagnosed with diabetes: 5.7-6.4%: Increased risk for diabetes 6.5% and greater: Diagnostic for diabete s For patients diagnosed with diabetes: <8.0%: Goal of therapy for ages 18-75 Clinicians may recommend a higher or low er goal for specific individuals. Sonja Beltran APRN, CNP LAB_1 Performing Organization Address City/State/ZIP Code Phon e Number [facility] [address] [address] TSH with Free T4 (if TSH Abnormal) (03/06/2020 3:33 PM LABORER OPERATOR) athologist Signature TSH, Reflex 3.21 0.30 - 4.50 03/06/2020 [facility] uIU/mL 7:25 PM LABORER OPERATOR LABORATORY Specimen Anatomical Collection Method / Collection Time Recei andrade Time (Source) Location / Volume Laterality Blood Venipuncture / 03/06/2020 3:33 03/06/2020 3:33 Unknown PM LABORER OPERATOR PM LABORER OPERATOR Narrative [facility] - 03/06/2020 7:25 P M LABORER OPERATOR Lab will automatically reflex to Free T4 when TSH results are <0.30 uIU/mL or >4.50 mIU/mL. Sonja Beltran APRN, [facility] LAB_1 Performing Organization Address City/State/ZIP Code Phon e Number [facility] [address] [place] [address] documented in this encounter Visit Diagnoses Diagnosis Type 1 diabetes mellitus without complic ation (HRC) - Primary Type I (juvenile type) diabetes mellitus without mention of complication, not stated as uncontrolled Subclinical hypothyroidism Other specified acquired hypothyroidism Pre-existing diabetes mellitus during pr egnancy in first trimester documented in this encounter Care Teams Rn Testing Relationship Specialty Start Date End Date Palmira Lim MD PCP - General 05/08/[address] [place], [place] [address] documented as of this encounter
--- OUTSIDE RECORDS SUMMARY | 2021-12-12 09:56 | XMS_ITS | Encounter Summary ---
:1999 Author Organization [facility] Address [address] [place] [address] Care Team Providers Name Role Phone Palmira Lim MD Primary Care Provider Reason for Referral Consult/Transfer Care (Routine) - Closed Specialty Diagnoses / Procedures Referred By Contact Refer red To Contact Diagnoses at early stage Type 1 diabetes mellitus without complication (HRC) [place] [address] [place] [address] Referral ID Status Reason Start Date Expiration Date Visits Requ ested Visits Authorized [id number] Closed 01/18/2020 04/18/2021 1 1 Scheduling Instructions Your provider has recommended an appoint ment with [facility]. You may call [phone] to s merrydule your appointment. We suggest you call your health insurance company about your coverage and benefits for this appointment. PUMPER Reason for Visit Reason Comments CONSULT early preg concerns Encounter Details Date Type Department Care Team Description 01/17/2020 Office Visit [facility] Nabila Stokes Pregnanc y at early stage (Primary Dx); Services-HOSPITAL NURSE LIAISON MD Maricruz Missed menses; [address] [facility], [address] [place] [address] DR Tin dyer 1 diabetes mellitus without complication ([facility]) [address] [place] [address] [phone] Social History Tobacco Use Types Packs/Day Years [...] Comments Blood Pressure 117/66 01/17/2020 3:33 PM HEAD PUMPER Pulse 80 01/17/2020 3:33 PM HEAD PUMPER Temperature - - Respiratory Rate - - Oxygen Saturation - - Inhaled Oxygen Concentration - - Weight 67.6 kg (149 lb) 01/17/2020 3:33 PM HEAD PUMPER Height - - Body Mass Index 25.58 10/20/2018 1:08 PM CDT documented in this encounter Progress Notes Divya, Nabila Alcantara MD - 01/17/2020 4:00 PM CST Nabila Taylorleher [id number] 2000 Gynecology Visit Reason for Visit: Early concerns HPI: Nabila Serna is a 19 y.o. who presents to [...] as developmental abnormalities for the baby. 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 Nabila Stokes MD P: [phone] 01/17/2020 4:10 PM Dictation Disclaimer: Some notes are completed with voice-recognition dictation software. Typographical errors may result . Please contact me via [employer] staff message if you note any errors requiring clarification. PUMPER documented in this encounter Plan of Treatment Scheduled Referrals Name Type Priority Associated Diagnoses Order S osiris Maternal Referral Routine at ear ly stage Ordered: 01/18/2020 Medicine Consult Type 1 diabetes mellitus without complication (HRC) documented as of this encounter Procedures Procedure Name Priority Date/Time Associated Comments Diagnosis OB CLINIC ULTRASOUND Routine 01/17/2020 4:18 PM Missed menses Results for this LIMITED HEAD PUMPER procedure are i n the results section. documented in this encounter Results Urine Culture [CUR] (01/17/2020 4:25 PM HEAD PUMPER) [facility] Method Time Signature Urine Culture Urogenital 01/19/2020 [facility] 1:29 PM HEAD PUMPER HOSPITAL Specimen Anatomical Collection Method Collection Time Receive d Time (Source) Location / / Volume Laterality Urine URINE SPECIMEN Non-blood 01/17/2020 4:25 PM 020 4:25 COLLECTION, CLEAN Collection / HEAD PUMPER PM HEAD PUMPER CATCH / Unknown Unknown Nabila Stokes MD LAB_1 Performing Organization Address City/State/[place] [address] OB CLINIC ULTRASOUND LIMITED (01/17/2020 4:18 PM HEAD PUMPER) Anatomical Region Laterality Modality Other Impressions 01/17/2020 4:18 PM HEAD PUMPER GS and YS seen in uterus, no [...] uncontrolled documented in this encounter Care Teams Detective Bowling Alley Relationship Specialty Start Date End Date Palmira Lim MD PCP - General 05/08/06 [address], [place] [address] documented as of this encounter
--- OUTSIDE RECORDS SUMMARY | 2021-12-12 09:56 | XMS_ITS | Encounter Summary ---
:1999 Author Organization [employer] Address [address] [place] [address] Care Team Providers Name Role Phone Palmira Lim MD Primary Care Provider Reason for Visit Reason Comments Ultrasound Results Encounter Details Date Type Department Care Team Description 01/23/2020 Telephone [facility] O'Nabila Jordanou nd Results Services-ELECTRONICS TESTER MD Maricruz [address] [place] [address], [address] [place] [address] [facility] [address] [place], [place] [address] [phone] Social History Tobacco Use Types Packs/Day Years [...] Patient verbalizes understanding and agrees with plan. ANTY CLERK Twila Suarez - 01/23/2020 3:27 PM CST ----- Message from Nabila Stokes MD sent at 01/23/2020 2:09 PM WARRANTY CLERK ----- Please call the patient and let her know that her recent dating US looks good overall! Now that thisUS is completed, I have reached out to the [facility] department to schedule her for a consultation with [facility] physician to discuss her diabetes as well as a genetic counselor. Please and thank you! ----- Message ----- From: Anup Pringle Results In Sent: 01/23/2020 1:26 PM WARRANTY CLERK To: Nabila Stokes MD ANTY CLERK documented in this encounter Plan of Treatment Not on filedocumented as of this encounter Visit Diagnoses Not on filedocumented in this encounter Care Teams Slurry Blender Relationship Specialty Start Date End Date Palmira Lim MD PCP - General 05/08/[address] [place] [address] documented as of this encounter
--- OUTSIDE RECORDS SUMMARY | 2021-12-12 09:56 | XMS_ITS | Encounter Summary ---
:1999 Author Organization [facility] Address [address] [place] [address] Care Team Providers Name Role Phone Palmira Lim MD Primary Care Provider Reason for Visit Procedure/Equipment (Routine) - Incomplete Specialty Diagnoses / Procedures Referred By Contact Refer red To Contact Diagnoses Type 1 diabetes mellitus without complication (HRC) Nabila Stokes MD Procedures MFM US NT, Early OB US [facility] OB Under 14 Wks [address] [address] [place] [address] Referral ID Status Reason Start Date Expiration Date Visits V isits Requested Authorized [id number] Incomplete 01/18/2020 04/18/2021 10 10 Encounter Details Date Type Department Care Team Description 03/06/2020 Ancillary [facility] Nabila Stokes cy at early stage; Procedure Medicine MD Maricruz Type 1 diabetes mellitus without complic ation (HRC) [address] [address] [address], [address] [address] [phone] Social History Tobacco Use Types Packs/Day Years [...] Type 1 diabetes Results for this US SEAM PRESS OPERATOR mellitus without procedure a re in complication (HRC) the resul ts section. documented in this encounter Results MFM US NT, Early OB US (03/06/2020 3:24 PM SEAM PRESS OPERATOR) Anatomical Region Laterality Modality Pelvis Ultrasound Study [...] / Laterality Volume Impressions 03/06/2020 3:50 PM SEAM PRESS OPERATOR S 1) Intrauterine at 13 weeks 4 [...] type 1 DM Narrative 03/06/2020 3:50 PM SEAM PRESS OPERATOR Patient Name: Nabila Serna ??Attending: Kamila Delgadillo MD Patient ??Workshop Manager: Otilia Lewis RDMS , Age: 709/02/2000, 19 [...] Heart Heart Rhythm regular Situs normal Cardiac Garrison appears normal Abdomen Stomach appears normal Umbilical [...] uncontrolled documented in this encounter Care Teams Calibration Specialist Relationship Specialty Start Date End Date Palmira Lim MD PCP - General 05/08/[address] [place] [address] documented as of this encounter
--- OUTSIDE RECORDS SUMMARY | 2021-12-12 09:56 | XMS_ITS | Encounter Summary ---
:1999 Author Organization [employer] Address [address] [place] [address] Care Team Providers Name Role Phone Palmira Lim MD Primary Care Provider Encounter Details Date Type Department Care Team Description 01/17/2020 Lab Visit [facility] Lab Missed menses [address] [facility] , [facility] [address] [place] [address] Social History Tobacco Use [...] 4:25 PM Missed menses Results for this WATERFRONT DIRECTOR procedure are i n the results section . documented in this encounter Results Urine Culture [CUR] (01/17/2020 4:25 PM WATERFRONT DIRECTOR) [facility] gist Method Time Signature Urine Culture Urogenital 01/19/2020 [facility] 1:29 PM W[facility]FRONT DIRECTOR [facility] Specimen Anatomical Collection Method Collection Time Receive d Time (Source) Location / / Volume Laterality Urine URINE SPECIMEN Non-blood 01/17/2020 4:25 PM 020 4:25 COLLECTION, CLEAN Collection / WATERFRONT DIRECTOR PM WATERFRONT DIRECTOR CATCH / Unknown Unknown Nabila Stokes MD LAB_1 Performing Organization Address City/State/ZIP Code Phon e Number [address] [address] documented in this encounter Visit Diagnoses Diagnosis Missed menses Absence of menstruation documented in this encounter Care Teams Christian Counselor Relationship Specialty Start Date End Date Palmira Lim MD PCP - General 05/08/06 [address] [address] documented as of this encounter
--- OUTSIDE RECORDS SUMMARY | 2021-12-12 09:56 | XMS_ITS | Encounter Summary ---
:1999 Author Organization [employer] Address [address] [place] [address] Care Team Providers Name Role Phone Palmira Lim MD Primary Care Provider Reason for Referral Procedure/Equipment (Routine) - Incomplete Specialty Diagnoses / Procedures Referred By Contact Refer red To Contact Diagnoses Missed menses Type 1 diabetes mellitus without complication (HRC) Nabila Stokes MD Procedures US OB <14 Weeks W EV Single US OB < 14 Weeks Single [address] [address] [place] [address] Referral ID Status Reason Start Date Expiration Date Visits V isits Requested Authorized [id number] Incomplete 01/19/2020 04/19/2021 1 1 EYBALL COACH Encounter Details Date Type Department Care Team Description 01/19/2020 Orders Only Nabila Roman Type 1 d iabetes mellitus without complication (HRC) (Primary Dx); Services-POCKET MACHINE OPERATOR MD Maricruz Missed menses [address] [facility], [address] [address] [place] [address] [phone] (Wo rk) Social History Tobacco Use Types [...] Weeks W EV Single (01/23/2020 1:15 PM VOLLEYBALL COACH) Anatomical Region Laterality Modality Pelvis Ultrasound Specimen (Source) Anatomical Collection Method Collection Time Re ceived Time Location / / Volume Laterality 01/23/2020 12:27 PM VOLLEYBALL COACH Impressions 01/23/2020 1:24 PM VOLLEYBALL COACH COMPARISON: None TECHNIQUE: ??Transabdominal and transvag inal imaging was performed. ?? FINDINGS: Gestational sac: Unremarkable. [place]-rump length measures 1.2 cm, corre sponding to [...] imaging was performed. FINDINGS: Gestational sac: Unremarkable. [place]-rump length measures 1.2 cm, corre sponding to [...] wee ks 3 days. Nabila Stokes MD [facility] documented in this encounter Visit Diagnoses [...] uncontrolled documented in this encounter Care Teams Crane Operator Cab Relationship Specialty Start Date End Date Palmira Lim MD PCP - General 05/08/06 [address] [place] [address] documented as of this encounter
--- OUTSIDE RECORDS SUMMARY | 2021-12-12 09:56 | XMS_ITS | Encounter Summary ---
:1999 Author Organization [employer] Address [address] [place] [address] Care Team Providers Name Role Phone Palmira Lim MD Primary Care Provider Reason for Visit Reason Comments Prior Authorization For Medication Encounter Details Date Type Department Care Team Description 01/18/2020 Telephone [facility] [address] Sonja Beltran, Prior Authorization For Endocrinology MITZI NICK Medication [facility] [address] [place] [address] [facility] [place] [address] [phone] (Wo rk) Social History Tobacco Use Types Packs/Day Years Used Date Smoking Tobacco: Former Cigarettes 0.3 1 Smokeless Tobacco: Never Alcohol Use Standard Drinks/Week Comments Not Currently 0 (1 standard drink = 0.6 oz pure alcoho l) on ocass Sex Assigned at Date Recorded Female 09/14/2020 7:23 AM CDT documented as of this encounter Nursing Notes Sonja Beltran APRN, MITZI - 01/24/2020 2:03 PM CST Thanks. URE CAPITAL ANALYST Tiffany Huffman, ANDRE - 01/24/2020 1:08 PM CST Called pt; explained to her about insurance denial and that we would be giving her samples. Pt understands and will come get samples. Sonja: Gave her 4 of the Tresiba U200 pens. Please sign for samples. Sonja Purcell, SANDOVAL, CHERRY DIPPER - 01/24/2020 12:02 PM CST Please call [...] Tresiba 100 and 200 available in clinic. iJn Mccullough - 01/24/2020 10:23 AM CST Images from the original note were not included. Received letter from [place], Appeal denied for Tresiba: Please advise. Jin Mccullough - 01/23/2020 3:13 PM CST Appeals letter faxed to [phone] Aleida Tukcer RN - 01/20/2020 1:26 PM CST DA: Please see message below from Sonja. Can we ran the PA again? Appeal? Please note resend the PA and indicate that the pt is --with very difficult BGs working author agent. Switching to levemir which has a shorter duration of action than Tresiba would be dangerous to the fetus at this time. URE CAPITAL ANALYST Aleida Pace RN - 01/20/2020 9:06 AM CST Do you want to send Levemir? URE CAPITAL ANALYST Jin Brown - 01/20/2020 8:34 AM CST Images from the original note were not included. PA denied for Tresiba. Approval requires documentation of inadequate response to a preferred insulins: Lantus and Levemir. Patient's chart does not indicate trial/failure of Levemir. Please advise. URE CAPITAL ANALYST Jin Brown - 01/19/2020 1:46 PM CST PA submitted via covermymeds URE CAPITAL ANALYST Nadira Ford RN - 01/18/2020 3:12 PM CST Pt [place]: Payor: [id number]it [facility]: [id number] URE CAPITAL ANALYST Nadira Ford RN - 01/18/2020 3:11 PM CST ----- Message from Jin Brown sent at 01/16/2020 11:05 AM VENTURE CAPITAL ANALYST ----- Regarding: FW: Rx Prior Auth Response [facility] does not find active coverage for this patient. Please contact the patient for updatedcoverage ----- Message ----- From: Interface, In Pharmacy Epa Sent: 01/16/2020 10:59 AM VENTURE CAPITAL ANALYST To: Endo Pn Da Subject: Rx Prior Auth Response Electronic Prior Authorization message received. URE CAPITAL ANALYST documented in this encounter Plan of Treatment Not on filedocumented as of this encounter Visit Diagnoses Not on filedocumented in this encounter Care Teams Medical Terminologist Relationship Specialty Start Date End Date Palmira Lim MD PCP - General 05/08/06 [address], [place] [address] documented as of this encounter
--- OUTSIDE RECORDS SUMMARY | 2021-12-12 09:57 | XMS_ITS | Encounter Summary ---
:1999 Author Organization [employer] Address [address] [place] [address] Care Team Providers Name Role Phone Palmira Lim MD Primary Care Provider Reason for Visit Reason Comments Medication Problems Encounter Details Date Type Department Care Team Description 01/11/2020 Telephone [facility] Palmira Lim, Medication Problems [address] [facility] [address] [place] [address] [place], [place] [phone] (Wo rk) Social History Tobacco Use [...] of insulin left. Warm transferred mom to [facility] for further assistance. No additional questions or concerns for PN NL at this time. NE STEAM FITTER HELPER documented in this encounter Plan of Treatment Not on filedocumented as of this encounter Visit Diagnoses Not on filedocumented in this encounter Care Teams Supervisor Home Restoration Service Relationship Specialty Start Date End Date Palmira Lim MD PCP - General 05/08/06 [address], [place] [address] documented as of this encounter
--- OUTSIDE RECORDS SUMMARY | 2021-12-12 09:57 | XMS_ITS | Encounter Summary ---
:1999 Author Organization [employer] Address [address] [place] [address] Care Team Providers Name Role Phone Palmira Lim MD Primary Care Provider Reason for Visit Reason Comments Diabetes Encounter Details Date Type Department Care Team Description 07/19/2019 Telemedicine [place] Sonja Beltran, Uncontrolled type I diabetes mellitus without complication (Primary Dx); Endocrinology HAIRSPRING CUTTER, ELECTRONICS INSTALLER Subclinical hypothyroidism [address] [address] [facility] [phone] [place] [address] Social History Tobacco Use Types [...] VM to call back. 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 Last eye exam: Over a year ago Foot exam: 06/[address] Martin, normal exam. Social history: Tobacco: reports that she has been smoking cigarettes. She has a 0.25 pack-year smoking history. She has never used smokeless tobacco. 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 Has not had [...] dosing however. Full med list reviewed in Epic. No other meds. Objective: Female patient, sounds very sleepy on the phone. Works through the initial registration on the [place] [employer] website while were on the phone together. [...] hypothyroidism documented in this encounter Care Teams Metal Off Bearer Relationship Specialty Start Date End Date Palmira Lim MD PCP - General 05/08/[address] [place] [address] documented as of this encounter
--- OUTSIDE RECORDS SUMMARY | 2021-12-12 09:57 | XMS_ITS | Encounter Summary ---
:1999 Author Organization [employer] Address [address] [place] [address] Care Team Providers Name Role Phone Palmira Lim MD Primary Care Provider Reason for Visit Reason Onset Date Comments Forms 11/12/2010 Encounter Details Date Type Department Care Team Description 11/12/2010 Telephone [facility] Palmira Lim MD Forms [address] [place] [address] [place] [address] [phone] (Wo rk) Social History Tobacco Use Types Packs/Day Years Used Date Smoking Tobacco: Passive Smoke Exposure - Never Smoker Smokeless Tobacco: Never Comments: mom smokes Alcohol Use Standard Drinks/Week Comments Not Asked 0 (1 standard drink = 0.6 oz pure alcoho l) Sex Assigned at Date Recorded Female 09/14/2020 7:23 AM CDT documented as of this encounter Nursing Notes Korina rAcher LPN - 11/12/2010 9:48 AM CDT Form [...] on filedocumented in this encounter Care Teams Shaper And Presser Relationship Specialty Start Date End Date Palmira Lim MD PCP - General 05/08/06 [address], [place] [address] documented as of this encounter
--- OUTSIDE RECORDS SUMMARY | 2021-12-12 09:57 | XMS_ITS | Encounter Summary ---
:1999 Author Organization [employer] Address [address] [place] [address] Care Team Providers Name Role Phone Palmira Lim MD Primary Care Provider Reason for Visit Reason Comments Diabetes Encounter Details Date Type Department Care Team Description 01/13/2020 Telemedicine [place] Sonja Beltran, Type 1 diabe yosi Endocrinology TALEND ETL DEVELOPER, SMALL PRODUCTS II ASSEMBLER mellitus without [address] [facility] complication (HRC) [place] [address] Blvd (Primary Dx) [phone] [place] [address] Social History Tobacco Use Types [...] 1 Each subcutaneously five times a day. DING CONSTRUCTION CONTRACTOR Izzy Workman LPN - 01/13/2020 3:30 PM CST LVM re:chart prep. 01/11 at 9:13am. DING CONSTRUCTION CONTRACTOR Nadira Ford RN - 01/13/2020 3:30 PM [...] 1141pm: 90 01/12: 141am: 96 Patient Concerns: DING CONSTRUCTION CONTRACTOR Sonja Beltran, TALEND ETL DEVELOPER, SMALL PRODUCTS II ASSEMBLER - 01/13/2020 3:30 PM CST ATTEMPTED VIDEO [...] smokeless tobacco. 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 Has not had [...] plus 1/40 over 140 Has been using [employer] to look up foods and count carbs [...] last 2 days with more frequent testing. /: 413am: 350 1251pm: 232 308pm: 208 01/03: [...] works to control her diabetes in . DING CONSTRUCTION CONTRACTOR documented in this encounter Plan of Treatment Not on filedocumented as of this encounter Results Microalbumin Urine Random (01/17/2020 2:21 PM BUILDING CONSTRUCTION CONTRACTOR) athologist Signature Albumin, 3.4 mg/L 01/17/2020 [facility] Urine, Random 3:28 PM BUILDING CONSTRUCTION CONTRACTOR LABOR[facility]ORY Creatinine, 52 >20 mg/dL 01/17/2020 [place] Urine, Random 3:28 PM BUILDING CONSTRUCTION CONTRACTOR [facility]ORY Albumin/Creati 7 <30 mg/g 01/17/2020 [place] nine Ratio, 3:28 PM BUILDING CONSTRUCTION CONTRACTOR LABORATORY Urine, Random Specimen Anatomical Collection Method Collection Time Receive d Time (Source) Location / / Volume Laterality Urine Non-blood 01/17/2020 2:21 PM 0 2:21 Collection / BUILDING CONSTRUCTION CONTRACTOR PM BUILDING CONSTRUCTION CONTRACTOR Unknown Sonja Beltran APRN, SMALL PRODUCTS II ASSEMBLER LAB_1 Performing Organization Address City/State/ZIP Code Phon e Number [facility] [address] [place] [address] (ABNORMAL) TSH with Free T4 (if TSH Abnormal) (01/17/2020 12:44 PM BUILDING CONSTRUCTION CONTRACTOR) athologist Signature TSH, Reflex 9.11 (H) 0.30 - 01/17/2020 [facility] 4.50 4:20 PM BUILDING CONSTRUCTION CONTRACTOR LAB[facility]ORY uIU/mL Specimen Anatomical Collection Method / Collection Time Recei andrade Time (Source) Location / Volume Laterality Blood Venipuncture / 01/17/2020 12:44 0 Unknown PM BUILDING CONSTRUCTION CONTRACTOR 12:44 PM BUILDING CONSTRUCTION CONTRACTOR Narrative [facility] - 01/17/2020 4:20 P M BUILDING CONSTRUCTION CONTRACTOR Lab will automatically reflex to Free T4 when TSH results are <0.30 uIU/mL or >4.50 mIU/mL. Sonja Beltran APRN, CNP LAB_1 Performing Organization Address [facility] Phon e Number [facility] [address] [place] [address] (ABNORMAL) Hemoglobin A1C Glycosylated (01/17/2020 12:44 PM BUILDING CONSTRUCTION CONTRACTOR) [facility] Method Time Signature Hemoglobin A1C 11.2 (H) <=5.6 % 01/17/2020 [facility] 9:53 PM BUILDING CONSTRUCTION CONTRACTOR [facility] Specimen Anatomical Collection Method / Collection Time Recei andrade Time (Source) Location / Volume Laterality Blood Venipuncture / 01/17/2020 12:44 0 Unknown PM BUILDING CONSTRUCTION CONTRACTOR 12:44 PM BUILDING CONSTRUCTION CONTRACTOR Narrative [facility] - 01/17/2020 9:53 PM BUILDING CONSTRUCTION CONTRACTOR For patients not previously diagnosed with diabetes: 5.7-6.4%: Increased risk for diabetes 6.5% and greater: Diagnostic for diabete s For patients diagnosed with diabetes: <8.0%: Goal of therapy for ages 18-75 Clinicians may recommend a higher or low er goal for specific individuals. Sonja Beltran APRN, CNP LAB_1 Performing Organization Address [facility] e Number [facility] [address] [address] (ABNORMAL) Creatinine (01/17/2020 12:44 PM BUILDING CONSTRUCTION CONTRACTOR) [facility] Method Time Signature Creatinine 0.50 (L) 0.55 - 01/17/2020 [facility] 1.02 mg/dL 3:19 PM BUILDING CONSTRUCTION CONTRACTOR LABORATORY GFR, Estimated >60 >60 01/17/2020 [facility] mL/min/1.7 3:19 PM BUILDING CONSTRUCTION CONTRACTOR LABORATORY 3m2 Specimen Anatomical Collection Method / Collection Time Recei andrade Time (Source) Location / Volume Laterality Blood Venipuncture / 01/17/2020 12:44 0 Unknown PM BUILDING CONSTRUCTION CONTRACTOR 12:44 PM BUILDING CONSTRUCTION CONTRACTOR Sonja Beltran APRN, CNP LAB_1 Performing Organization Address [facility] e Number [facility] [address] [place] [address] documented in this encounter Visit Diagnoses Diagnosis Type 1 diabetes mellitus without complic ation (HRC) - Primary Type I (juvenile type) diabetes mellitus without mention of complication, not stated as uncontrolled documented in this encounter Care Teams Core Cleaner Relationship Specialty Start Date End Date Palmira Lim MD PCP - General 05/08/[address] [place], [place] [address] documented as of this encounter
--- OUTSIDE RECORDS SUMMARY | 2021-12-12 09:57 | XMS_ITS | Encounter Summary ---
:1999 Author Organization [employer] Address [address] [place] [address] Care Team Providers Name Role Phone Palmira Lim MD Primary Care Provider Reason for Referral Consult/Transfer Care (Routine) - Closed Specialty Diagnoses / Procedures Referred By Contact Refer red To Contact Diagnoses Type 1 diabetes mellitus without complication (HRC) Tara Lopez APRN, CNP [address] [place] [address] Referral ID Status Reason Start Date Expiration Date Visits Requ ested Visits Authorized [id number] Closed 05/11/2018 08/10/2019 1 1 Scheduling Instructions Your provider has recommended an appoint ment with [facility]. You may call [phone] to schedule your a ppointment. If you do not schedule an appointment within the next 1 to 3 busin days, we will call you to help arrange your appointment. We suggest you call [employer] about your coverage and benefits for this appointme nt. Reason for Visit Reason Comments Nexplanon Removal Encounter Details Date Type Department Care Team Description 05/11/2018 Office Visit Tara Carrera Breakkristen hrough bleeding on Nexplanon (Primary Dx); Saundra Chacon APRN, CNP Herpes simplex vulvovaginitis; [address] [address] Ginger Gilbert Type 1 diabetes mellitus without complic ation (HRC); [place] [address] [place], [place] Surveillance of previously p rescribed implantable subdermal contraceptive [phone] [address] Social History Tobacco Use Types Packs/Day Years [...] - 05/11/2018 1:40 PM CDT Nabila Serna [id number] 2000 SUBJECTIVE: NABILA SERNA is a 17 [...] DM 1, diagnosed in 2016. Her previous Technical Operations Manager is no longer in her insurance network. Patient states that she has recently been keeping her sugars under good control. She experiencedan episode of DKA in March 2018, which hospitalized her for 5-6 days (in [place]). She has beenscared of having this happen again, so it trying to stay on top of things. 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 She has not had any recurrences. She got it from her current boyfriend. She does not currently have a prescription for acyclovir to use as needed. PAST MEDICAL AND SURGICAL HISTORY REVIEWED IN [facility] FAMILY AND SOCIAL HISTORY REVIEWED IN [facility] MEDICATIONS: Outpatient Medications Prior to Visit Medication [...] in the interim. Tara Lopez APRN, CNP [facility] NB: A voice recognition dictation system was used for this note. Please excuse any typographical errors. documented in this encounter Plan of Treatment Scheduled Referrals Name Type Priority Associated Diagnoses Order [facility] Endocrinology Referral Routine Type 1 diabetes Ordered: [...] contraceptive documented in this encounter Care Teams Back Tacker Relationship Specialty Start Date End Date Palmira Lim MD PCP - General 05/08/[address] [place] [address] documented as of this encounter
--- OUTSIDE RECORDS SUMMARY | 2021-12-12 09:57 | XMS_ITS | Encounter Summary ---
:1999 Author Organization [employer] Address [address] [place] [address] Care Team Providers Name Role Phone Palmira Lim MD Primary Care Provider Reason for Visit Reason Onset Date Comments Joaquina 01/30/2010 Refill 01/30/2010 Encounter Details Date Type Department Care Team Description 01/30/2010 Refill [facility] Katya Mccullough MD [place]; Refill [address] [facility], [place] [address] [place] [address] [place] [address] [phone] (Wo rk) Social History Tobacco Use Types [...] afternoonAuthorizing Provider: KATYA MCCULLOUGH User: KATIA JESUS CULTURAL AND FORESTRY SUPERVISOR Katia Ellis RN - 01/30/2010 9:50 AM CST Request within appropriate time parameters. Prescription prepared for provider's signature. Will be ready for diamond picker. Katia Francis RN CULTURAL AND FORESTRY SUPERVISOR Diamond Sher - 01/30/2010 9:27 AM CST Please call when ready, would like to pick these up today. Diamond Sher CULTURAL AND FORESTRY SUPERVISOR documented in this encounter Plan of Treatment Not on filedocumented as of this encounter Visit Diagnoses Diagnosis Attention deficit disorder with hyperact ivity(314.01) ([facility]) Attention deficit disorder with hyperact ivity documented in this encounter Care Teams Silk Crepe Machine Operator Relationship Specialty Start Date End Date Palmira Lim MD PCP - General 05/08/06 [address] [address] documented as of this encounter
--- OUTSIDE RECORDS SUMMARY | 2021-12-12 09:57 | XMS_ITS | Encounter Summary ---
:1999 Author Organization [employer] Address [address] [place] [address] Care Team Providers Name Role Phone Palmira Lim MD Primary Care Provider Reason for Visit Reason Onset Date Comments Joaquina 09/05/2010 Refill 09/05/2010 Encounter Details Date Type Department Care Team Description 09/05/[address] [facility] Katya Mccullough MD [place]; Refill [address] [place] [address] [place] [address] [place], [place] [id number] (Wo rk) Social History Tobacco Use Types [...] PM CDTApproved Prescriptions: Disp Refills amphetamine-dextroamphetamine (AKA [id number] Tab 0Sig: Take 0.5 Tabs by mouth. every afternoon.Authorizing Provider: KATYA MCCULLOUGH User: KATIA JESUS amphetamine-dextroamphetamine (ADDERALL XR)30 Cap 0Sig: Take 1 Cap by mouth every morning. Authorizing Provider: KATYA MCCULLOUGH User: KATIA JESUS Katia Ellis RN - 09/05/2010 1:08 PM CDT Future appointment is scheduled. Request within appropriate time parameters. Prescription prepared for provider's signature. Will be ready for pick pulling machine operator. Diamond Sher - 09/05/2010 11:59 AM CDT Would like to pick this up tomorrow Thu. 8th. Diamond Sher documented in this encounter Plan of Treatment Not on filedocumented as of this encounter Visit Diagnoses Diagnosis Attention deficit disorder with hyperact ivity(314.01) ([facility]) - Primary Attention deficit disorder with hyperact ivity documented in this encounter Care Teams Ground Instructor Advanced Relationship Specialty Start Date End Date Palmira Lim MD PCP - General 05/08/[address] [place] [address] documented as of this encounter
--- OUTSIDE RECORDS SUMMARY | 2021-12-12 09:57 | XMS_ITS | Encounter Summary ---
:1999 Author Organization [employer] Address [address] [place] [address] Care Team Providers Name Role Phone Palmira Lim MD Primary Care Provider Reason for Visit Reason Comments Medication Request Encounter Details Date Type Department Care Team Description 01/11/2020 Nurse Triage Careline Unassigned, Medication Request [address] Provider [place], [place] [address] [place] [address] [place] [address] Social History Tobacco Use Types Packs/Day Years [...] triager answers question Protocols used: MEDICATION QUESTION [id number] Phoned pharmacy which stated they had already spoken to operations support manager provider and prescription was being filled. Pt notified The Careline is open 22/09. Call back with any questions or concerns. CTION MOLDING MACHINE SETTER Ree Arvizu - 01/11/2020 6:31 PM CST Verified patient identity using three identifiers: Yes Caller's relationship to patient: Parent At which care system or clinic is the patient normally seen? Miladis Quevedo ([facility]) Clinics Medication Questions/New Med Request/ Side Effects What medication are you calling about (name and/or type)? Humalog What is your question/concern? Patient's prescription was sent over but pharmacy states they cant fill it because its missing the insulin per day Are you experiencing any symptoms? No Plan: Caller transferred directly to CareLine nurse. CTION MOLDING MACHINE SETTER documented in this encounter Plan of Treatment Not on filedocumented as of this encounter Visit Diagnoses Not on filedocumented in this encounter Care Teams Director Asset Relationship Specialty Start Date End Date Palmira Lim MD PCP - General 05/08/[address] [place] [address] documented as of this encounter
--- OUTSIDE RECORDS SUMMARY | 2021-12-12 09:57 | XMS_ITS | Encounter Summary ---
:1999 Author Organization [employer] Address [address] [place] [address] Care Team Providers Name Role Phone Palmira Lim MD Primary Care Provider Reason for Visit Reason Comments PE,C&TC 10 year pe Encounter Details Date Type Department Care Team Description 10/28/2010 Office Visit [facility] Palmira Lim Routine or child heal th check (Primary Dx); [address] Eliezer MD Need for prophylactic vaccination and in oculation against influenza; [place] [address] Need vaccination-viral disease; [phone] [place], [place] Need for DTP vaccine; [address] Need for prophylactic vaccination and in oculation against varicella; [phone] Attention defic it disorder with hyperactivity (Work) [...] 10/28/2010 9:11 AM CD T Growth Chart: [facility] (Girls, 2-20 Years) documented in this encounter [...] check your child's insurance card or call [phone] for help. Immunizations (shots) help protect your [...] it. The school psychologist, your child???s teacher, yard specialist, counselors and your health care provider, are all important sources of help. A parent advocate group called [employer] can also be a great help with school problems. Call [phone]. Sexuality As children approach age 11, they [...] basketball teams, etc., are sponsored by most [employer] and schools. Coaches are usually community volunteers with children the same age as yours. If your child is interested in team sports, try to find a polo coach who emphasizes learning the sport and having fun rather than just winning. Consider being a polo coach yourself if you have the time. [...] documented in this encounter Progress Notes Palmira Lmi MD - 10/28/2010 9:34 AM CDT 10 [...] School: will be starting new school in [place] ( [employer]) private middle school Grade: starting 6th School status: Behavior stable. Academic stable. Services may need mcat tutor. Teacher comments:did better on meds last [...] accompanied by her mother for routine child welfare worker. Parental/Patient Concerns absent SCHOOL Name: [employer] will start new school in [place] Grade: 6 Success: satisfactory on meds Sports/Recreational [...] with parent and 4 sibs: moving to [place] with step Dad and mom Family: no [...] Need for prophylactic vaccination with c ombined scwursgxle-fniqjmo-yyzyygpyg (DTP) vaccine Need for prophylactic vaccination and in oculation against varicella Attention deficit disorder with hyperact ivity(314.01) ([facility]) Attention deficit disorder with hyperact ivity documented in this encounter Care Teams Chip Loft Worker Relationship Specialty Start Date End Date Palmira Lim MD PCP - General 05/08/06 [address] [address] documented as of this encounter
--- OUTSIDE RECORDS SUMMARY | 2021-12-12 09:57 | XMS_ITS | Encounter Summary ---
:1999 Author Organization [employer] Address [address] [place] [address] Care Team Providers Name Role Phone Palmira Lim MD Primary Care Provider Reason for Visit Reason Comments Diabetes Encounter Details Date Type Department Care Team Description 10/20/2018 Office Visit [facility] Frey Uncontrolled type I diabetes mellitus without complication (HRC) (Primary Dx); Endocrinology L, PA-C Subclinical hypothyroidism; [address] [place] [address] [place], [place] [phone] 8[address]205 Social History Tobacco Use Types Packs/Day Years [...] eye exam. If you go outside of [facility], please have records of your visit faxed to [phone]. If you see a [facility] eye doctor, please call the Opthalmology department [phone] to schedule your appointment. Follow up in 1 mo with GENE, 3 mo with Pita, [address] Maldonado. If you need to schedule or have questions about your appointment, please call [phone]. If you have medical questions or concerns, please contact the triage nurse at [phone]. Thanks for visiting today! Commend documented in [...] from the original note were not included. [facility]: [facility], [address] [place] [address] [place] [address] Clinic: [address] [place] [address] [phone], Nurse Line: [phone] Diabetes Progress Note October 20, 2018 Subjective: [...] visit. 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 Tobacco use. Current Medications: 1. Tresiba 30 u daily 2. Humalog 1 u/ 8 grams + 1 u/ 40 > 120, average All medications reviewed and updated in [facility] today. Last foot exam: 04/2018 Last eye [...] eye exam. If you go outside of [facility], please have records of your visit faxed to [phone]. If you see a [facility] eye doctor, please call the Opthalmology department [phone] to schedule your appointment. 4) Discussed hypothyroidism and levothyroxine. Lab in 6 weeks. Discussed symptoms of over-replacement and to call with these. 5) Need to monitor weight at upcoming visits. She is making lifestyle changes. Levothyroxine should also help. Follow up in 1 mo with IDC, 3 mo with Pita, 6 mo with [...] hemoglobin (Hb A1C) (10/20/2018 1:05 PM CDT) athologist Signature Hemoglobin A1C, 9.4 (A) 4 - 5.6 % POCT POC Cartridge Lot# [id number] POCT Specimen (Source) Anatomical Collection Method Collection Time Re ceived Time Location / / Volume Laterality Blood 10/20/2018 1:05 PM CDT Pita [facility] POINT OF CARE TESTS Performing Organization Address City/State/ZIP Code Phon e Number POCT documented in this encounter Visit Diagnoses Diagnosis Uncontrolled type I diabetes mellitus wi thout complication - Primary Subclinical hypothyroidism Other specified acquired hypothyroidism Hyperglycemia Other abnormal glucose documented in this encounter Care Teams Military Source Operations Specialist Relationship Specialty Start Date End Date Palmira Lim MD PCP - General 05/08/[address] [place] [address] documented as of this encounter
--- OUTSIDE RECORDS SUMMARY | 2021-12-12 09:57 | XMS_ITS | Encounter Summary ---
:1999 Author Organization [employer] Address [address] [place] [address] Care Team Providers Name Role Phone Palmira Lim MD Primary Care Provider Reason for Visit Reason Comments BLADDER INFECTION INFECTION, YEAST Vaginal Discharge Encounter Details Date Type Department Care Team Description 09/28/2015 Office Visit [facility] Jl lindsay blood sugar (Primary Dx); Jabier Dysuria; [address] Glucosuria; KAYLYN Broderick Ketonuria; [address] Vaginal discharge [phone] Social History Tobacco Use Types Packs/Day Years [...] ??C) (Tympanic) Wt 124 lb (56.246 kg) [id number]% LMP 09/24/2015 General: NAD. Friendly and cooperative. [...] 1 diabetes. [facility] for further evaluation/treatment. She was given copies of her lab results. Mother was agreeable with the plan and expressed understanding. Ventura Guajardo PA-C First year PA student from [employer] PA Program present for the office visit. [...] Whole Blood POC (09/28/2015 7:54 PM CDT) [facility] Method Time Signature Glucose, Whole 507 (HH) 70 - 180 [facility] Blood mg/dl LAB[facility]ATORIES Specimen Anatomical Collection Method Collection Time Receive d Time (Source) Location / / Volume Laterality 09/28/2015 7:54 PM 6 2:31 CDT PM CDT Physician Unknown LAB_1 Performing Organization Address City/[facility]/ZIP Code Phon e Number [facility] [phone] (ABNORMAL) UA Micro If (09/28/2015 7:19 PM CDT) [facility] Method Time Signature Urine Color Yellow [...] 7:38 PM C DT Performed at [facility], [facility] [address] [place] [address] Ventura Guajardo PA-C LAB_1 Performing Organization Address City/[facility] Phon e Number [facility] [phone] documented in this encounter Visit Diagnoses Diagnosis Elevated blood sugar - Primary Other abnormal glucose Dysuria Glucosuria Glycosuria Ketonuria Acetonuria Vaginal discharge Leukorrhea, not specified as infective documented in this encounter Care Teams Plater Printed Circuit Board Panels Relationship Specialty Start Date End Date Palmira Lim MD PCP - General 05/08/[address] [address] documented as of this encounter
--- OUTSIDE RECORDS SUMMARY | 2021-12-12 09:57 | XMS_ITS | Encounter Summary ---
:1999 Author Organization [employer] Address [address] [place] [address] Care Team Providers Name Role Phone Palmira Lim MD Primary Care Provider Reason for Visit Reason Onset Date Comments Joaquina 03/13/2010 Refill 03/13/2010 Encounter Details Date Type Department Care Team Description 03/13/2010 Refill [facility] Katya Mccullough MD [place]; Refill [address] [place] [address] [place] [address] [phone] (Wo rk) Social History Tobacco Use Types [...] afternoonAuthorizing Provider: KATYA MCCULLOUGH User: KATIA JESUS ISTICS TEACHER Katia Ellis RN - 03/13/2010 3:21 PM CST Future appointment is scheduled. Request within appropriate time parameters. Prescription prepared for provider's signature. Will be ready for seed cone picker. Katia Francis RN ISTICS TEACHER April Rodriguez - 03/13/2010 3:06 PM CST Mom would like to seed cone picker today. ISTICS TEACHER documented in this encounter Plan of Treatment Not on filedocumented as of this encounter Visit Diagnoses Diagnosis Attention deficit disorder with hyperact ivity(314.01) ([facility]) Attention deficit disorder with hyperact ivity documented in this encounter Care Teams Gas Appliance Repairer Relationship Specialty Start Date End Date Palmira Lim MD PCP - General 05/08/[address] [place] [address] documented as of this encounter
--- OUTSIDE RECORDS SUMMARY | 2021-12-12 09:57 | XMS_ITS | Encounter Summary ---
:1999 Author Organization [employer] Address [address] [place] [address] Care Team Providers Name Role Phone Palmira Lim MD Primary Care Provider Reason for Visit Reason Comments Diabetes DIABETES EDUCATION Encounter Details Date Type Department Care Team Description 11/17/2018 Office Visit [facility] Typ e 1 diabetes mellitus Diabet without complication [address] [facility] ([facility] [place] [address] Social History Tobacco Use Types [...] Modules accepted: Orders Kay Qureshi, OLMAN, LD, CDCES - 11/17/2018 1:00 PM CDT Subjective: What [...] 2 quesadillas and a large order of paraguayan fries. Counted the 2 tortillas as 20 [...] are not consistent. Reports she has a [employer] phone addi. Alcohol Intake Had alcohol once [...] %)* * Growth percentiles are based on [facility] (Girls, 2-20 Years) data. Lab results related [...] to take only prescribed correction at bedtime, 40>140 and not extra. Discussed strategies for easy [...] uncontrolled documented in this encounter Care Teams Returned Goods Inspector Relationship Specialty Start Date End Date Palmira Lim MD PCP - General 05/08/06 [address] [address] documented as of this encounter
--- OUTSIDE RECORDS SUMMARY | 2021-12-12 09:57 | XMS_ITS | Encounter Summary ---
:1999 Author Organization [employer] Address [address] [place] [address] Care Team Providers Name Role Phone Palmira Lim MD Primary Care Provider Encounter Details Date Type Department Care Team Description 03/28/2010 Office Visit [facility] Katya Kunz, Attennahomi n deficit Psychiatry MD disorder with [address] [facility], [address] [facility] (Primary [address] [place], [place] Dx) [place], [place] [address] Social History Tobacco Use Types Packs/Day [...] Comments Blood Pressure 114/61 03/28/2010 1:10 PM COREROOM FOUNDRY LABORER Pulse 91 03/28/2010 1:10 PM COREROOM FOUNDRY LABORER Temperature - - Respiratory Rate - - Oxygen Saturation - - Inhaled Oxygen Concentration - - Weight 31.8 kg (70 lb) 03/28/2010 1:10 PM COREROOM FOUNDRY LABORER Height 137.2 cm (4' 6) 03/28/2010 1:10 PM COREROOM FOUNDRY LABORER Body Mass Index 16.88 03/28/2010 1:10 PM COREROOM FOUNDRY LABORER Body Mass Index Percentile 44.98 % 03/28/2010 [...] choir, cello, karate Education: 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 Assessment: Naibla Serna is an 9-year-old girl with attention deficit hyperactivity disorder, which has been well treated with Adderall without ae. We discussed the importance of eating breakfast daily and ways to implement this into her routine. Also discussed some organization and behavior changes to get reading homework incident. We will continue current treatment plan. The patient is at low risk for suicidal behavior. Diagnosis: Mullens I: Attention deficit hyperactivity disorder, Mullens II: None. Mullens III: None. Plan: Continue current meds with no changes Eat breakfast, increase Protein Appointment in: 6 months Visit Summary: 25 minutes with >50% of the time spent on educational counseling regarding diagnosis and prognosis, treatment options and organization strategies and dietary adjustments. This note was transcribed using [employer]Spring0 ([employer] technology and was released without completeediting. Katya Kunz MD ROOM FOUNDRY LABORER documented in this encounter Plan of Treatment Not on filedocumented as of this encounter Visit Diagnoses Diagnosis Attention deficit disorder with hyperact ivity(314.01) ([facility]) - Primary Attention deficit disorder with hyperact ivity documented in this encounter Care Teams Ceramic Plater Relationship Specialty Start Date End Date Palmira Lim MD PCP - General 05/08/06 [address], [place] [address] documented as of this encounter
--- OUTSIDE RECORDS SUMMARY | 2021-12-12 09:57 | XMS_ITS | Encounter Summary ---
:1999 Author Organization [employer] Address [address] [place] [address] Care Team Providers Name Role Phone Palmira Lim MD Primary Care Provider Encounter Details Date Type Department Care Team Description 05/20/2018 Lab Visit [facility] Type 1 diabetes mellitus wit hout complication (HRC); [address] Screening, anemia, deficienc y, iron; [place] [address] Screening for HIV (human imm unodeficiency virus); [phone] Routine screeni ng for STI (sexually transmitted [...] - 05/20/2018 4:27 PM CDT Performed at [facility], [address] [place] [address] CLIA number [id number] Tara Lopez APRN, INTERCEPTOR OPERATOR LAB_1 Performing Organization Address City/State/ZIP Code Phon e Number PN SOFT [address] [place] [address] [phone] Chlamydia & GC, Urine (05/20/2018 11:05 AM CDT) athologist Signature Urine Negative Negative PN SOFT Chlamydia STD Comment: Test Performed by [employer] Ii Assembler Mediated Amplification Results obtained from this source are no t FDA approved. CLIA Number [id number] Urine N. gonnorrhoeae STD Negative Negative PN S OFT Comment: Test Performed by [employer] Access[employer] Ii Assembler Mediated Amplification Results obtained from this source are no t FDA approved. Performed at [facility], [address] [place] [address] CLIA Number [id number] Specimen Anatomical Collection Method Collection Time Receive d Time (Source) Location / / Volume Laterality 05/20/2018 11:05 05/20/2018 4:01 AM CDT PM CDT Tara Lopez APRN, CNP LAB_1 Performing Organization Address [facility] Phon e Number PN SOFT [address] [place] [address] (ABNORMAL) Hgb A1c (05/20/2018 10:58 AM CDT) P athologist Signature HGB A1C 9.5 (H) 4.0 - 5.6 % PN SOFT Specimen Anatomical Collection Method Collection Time Receive d Time (Source) Location / / Volume Laterality 05/20/2018 10:58 05/20/2018 6:43 AM CDT PM CDT Narrative PN SOFT - 05/20/2018 8:09 PM CDT Performed at [address] [address] CLIA number [id number] Tara Lopez APRN, MITZI LAB_1 Performing Organization Address [facility] Phon e Number PN SOFT [address] [place] [address] HIV 1/2 Ag/Ab 4th Generation (05/20/2018 10:58 AM CDT) Patholo gist Method Time Signature HIV-1 p24 Ag Nonreactive Nonreactive PN SOFT and HIV-1/HIV-2 Ab Specimen Anatomical Collection Method Collection Time Receive d Time (Source) Location / / Volume Laterality 05/20/2018 10:58 05/20/2018 4:17 AM CDT PM CDT Narrative PN SOFT - 05/20/2018 4:58 PM CDT Performed at [address] [address] CLIA number [id number] Tara Lopez APRN, CNP LAB_1 Performing Organization Address City/[facility]/ZIP Code Phon e Number PN SOFT [address] [place] [address] (ABNORMAL) Basic Metabolic Panel (05/20/2018 10:58 AM [...] - 05/20/2018 2:40 PM CDT Performed at [facility], [facility] [address] [place] [address] CLIA number [id number] Tara Lopez APRN, CNP LAB_1 Performing Organization Address City/[facility] Code Phon e Number PN SOFT [address] [place] [address] Lipid Panel and Direct LDL(If Needed) (05/20/2018 10:58 AM CDT) [facility] Method Time Signature Cholesterol 163 0 - [...] - 05/20/2018 2:40 PM CDT Performed at [facility], [address] [place] [address] CLIA number [id number] Tara Lopez APRN, CNP LAB_1 Performing Organization Address City/[facility] Phon e Number PN SOFT [address] [place] [address] Hemoglobin, Blood (05/20/2018 10:57 AM CDT) athologist Signature Hemoglobin 13.8 11.8 - 15.5 PN SOFT g/dL Specimen Anatomical Collection Method Collection Time Receive d Time (Source) Location / / Volume Laterality 05/20/2018 10:57 05/20/2018 AM CDT 10:57 AM CDT Narrative PN SOFT - 05/20/2018 11:06 AM CDT Performed at [facility], [address] [place] [address] CLIA number [id number] Tara Lopez APRN, CNP LAB_1 Performing Organization Address [facility] Phon e Number PN SOFT [address] [place] [address] documented in this encounter Visit Diagnoses Diagnosis [...] se documented in this encounter Care Teams Carpenter Helper Hardwood Flooring Relationship Specialty Start Date End Date Palmira Lim MD PCP - General 05/08/[address] [place] [address] documented as of this encounter
--- OUTSIDE RECORDS SUMMARY | 2021-12-12 09:57 | XMS_ITS | Encounter Summary ---
:1999 Author Organization [facility] Address [address] [place] [address] Care Team Providers Name Role Phone Palmira Lim MD Primary Care Provider Reason for Visit Reason Comments Missed Appointment Encounter Details Date Type Department Care Team Description 12/24/2018 Telephone [facility] Keyla Adams , Missed Appointment Wendy POWELL, CDE [id number] [place] [address] [facility] [phone] [place] [address] Social History Tobacco Use Types Packs/Day Years Used Date Smoking Tobacco: Every Day Cigarettes 0.3 1 Smokeless Tobacco: Never Alcohol Use Standard Drinks/Week Comments Yes 0 (1 standard drink = 0.6 oz pure alcoho l) on ocass Sex Assigned at Date Recorded Female 09/14/2020 7:23 AM CDT documented as of this encounter Nursing Notes Keyla Adams, RN, CDE - 12/24/2018 10:37 AM CDT Called and LM stating we had been expecting her at 10 am. Requested call back to [phone] to letus know if she was coming or wanted to reschedule. documented in this encounter Plan of Treatment Not on filedocumented as of this encounter Visit Diagnoses Not on filedocumented in this encounter Care Teams Pediatric Genetic Counselor Relationship Specialty Start Date End Date Palmira Lim MD PCP - General 05/08/06 [address] [address] documented as of this encounter
--- OUTSIDE RECORDS SUMMARY | 2021-12-12 09:57 | XMS_ITS | Encounter Summary ---
:1999 Author Organization [facility] ([facility] Address [address] [place] [address] Care Team Providers Name Role Phone Palmira Lim MD Primary Care Provider Reason for Referral Consult/Transfer Care (Routine) - Closed Specialty Diagnoses / Procedures Referred By Contact Refer red To Contact Diagnoses Uncontrolled type I diabetes mellitus without complication Thyroid enlargement (HRC) Lilian Maldonado MBBS [address] [place], [place] [address] Referral ID Status Reason Start Date Expiration Date Visits Requ ested Visits Authorized [id number] Closed 07/14/2018 10/13/2019 1 1 Scheduling Instructions Your provider has recommended an appoint ment with [facility]. You may call [phone] to schedule [facility] appointment. If you do not schedule an appointment within the next 1 to 3 busin ess days, we will call you to help arrange your appointment. We suggest you call [facility] health insurance company about your coverage and benefits for this appointme nt. Consult/Transfer Care (Routine) - Closed Specialty Diagnoses / Procedures Referred By Contact Refer red To Contact Diagnoses Uncontrolled type I diabetes mellitus without complication Thyroid enlargement (HRC) Lilian Maldonado MBBS [address] [place], [place] [address] Referral ID Status Reason Start Date Expiration Date Visits Requ ested Visits Authorized [id number] Closed 07/14/2018 10/13/2019 1 1 Scheduling Instructions Your provider has recommended an appoint ment with [facility]. You may call [phone] to schedule your appoi ntment. If you do not schedule an appointment within the next 1 to 3 business days, we will call you. Reason for Visit Reason Comments Diabetes Consult/Transfer Care (Routine) - Closed Specialty Diagnoses / Procedures Referred By Contact Refer red To Contact Diagnoses Type 1 diabetes mellitus without complication (HRC) Tara Lopez, SANDOVAL, DESKTOP PUBLISHER [address] [place] [address] Referral ID Status Reason Start Date Expiration Date Visits Requ ested Visits Authorized [id number] Closed 05/11/2018 08/10/2019 1 1 Encounter Details Date Type Department Care Team Description 07/14/2018 Initial Consult Lilian Jamil type I diabetes mellitus without complication (HRC) (Primary Dx); Endocrinology KAIN [facility]ton Thyroid enlargement [address] [place] [address] [facility] [phone] [place] [address] Social History Tobacco Use Types [...] 07/14/2018 1:54 PM CD T Growth Chart: [facility] (Girls, 2-20 Years) documented in this encounter Progress Notes Beatriz Friedman LPN - 07/14/2018 1:30 PM CDT Images from the original note were not included. Lilian Maldonado MBBS - 07/14/2018 1:30 PM CDT [facility] Department of Endocrinology, Diabetes and Metabolism Clinic Note Name: Nabila Serna Cc: Establish care for T1DM, she used to see pediatric endocrinology at [facility]. 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 #1 T1DM: Diagnosed in 2015, no [...] Thyroid prominence: Check TSH today. KAIN Bruce Stile Ripsaw Operator documented in this encounter Plan of Treatment [...] TEST ENTER/ EDIT ORDERABLES Performing Organization Address City/[facility]/ZIP Code Phon e Number POCT (ABNORMAL) TSH (07/14/2018 2:43 PM CDT) [facility] Signature TSH, Sensitive 5.05 (H) 0.30 - 07/14/2018 JUDAISM 4.50 7:31 PM CDT LABORATORY uIU/mL Specimen Anatomical Collection Method / Collection Time Recei andrade Time (Source) Location / Volume Laterality Blood Venipuncture / 07/14/2018 2:43 07/14/2018 2:43 Unknown PM CDT PM CDT Lilian [facility]_1 Performing Organization Address City/[facility] Phon e Number [facility] [address] [place] [address] documented in this encounter Visit Diagnoses Diagnosis Uncontrolled type I diabetes mellitus wi thout complication - Primary Thyroid enlargement (HRC) Goiter, unspecified documented in this encounter Care Teams Nurse Supervisor Relationship Specialty Start Date End Date Palmira Lim MD PCP - General 05/08/[address] [place], [place] [address] documented as of this encounter
--- OUTSIDE RECORDS SUMMARY | 2021-12-12 09:57 | XMS_ITS | Encounter Summary ---
:1999 Author Organization [employer] Address [address] [place] [address] Care Team Providers Name Role Phone Palmira Lim MD Primary Care Provider Encounter Details Date Type Department Care Team Description 10/14/2010 Office Visit [facility] Katya Kunz, Attennahomi n deficit Psychiatry MD disorder with [address] [facility], [address] [place] [address] (Primary [address] [place], [place] Dx) [place], [place] [phone] Social History Tobacco Use Types Packs/Day [...] 10/14/2010 8:46 AM CD T Growth Chart: [facility] (Girls, 2-20 Years) documented in this encounter Patient Instructions Patient InstructionsKatya Kunz - 10/14/2010 8:34 AM CDT Find power lineman technician when move to [place], establish care for future refills and referral [...] Complaint: f/u ADHD, upcoming [place] [facility] Current History: Nabila is seen with her mother and older sister. She reports had a good end of the school year.Adderall his been quite helpful for her concentration and impulsivity. She has not always taking it during the summer but plans to begin again during the school year. The family will be moving to [place] at the end of the month. She [...] continue with current medication. Discussed transition to [place] with supportive therapy regarding upcoming move, supported and validated her f tressa. Discussed ways to make new friends. The patient is at low risk for suicidal behavior. Diagnosis: [place] Lucas I: Attention deficit hyperactivity disorder, [place] Lucas II: None. Saint Lucas III: None. Plan: Continue current meds with no changes Recommend finding a power lineman technician upon move to [place] to continue medication management Visit Summary: 25 minutes with >50% of the time spent on educational counseling regarding upcoming move and transition, how to establish care with new providers [id number] This note created using speech-recognition software and may contain unintended word substitutions. Katya Kunz MD documented in this encounter Plan of Treatment Not on filedocumented as of this encounter Visit Diagnoses Diagnosis Attention deficit disorder with hyperact ivity(314.01) ([facility]) - Primary Attention deficit disorder with hyperact ivity documented in this encounter Care Teams Margin Clerk Relationship Specialty Start Date End Date Palmira Lim MD PCP - General 05/08/[address] [place] [address] documented as of this encounter
--- OUTSIDE RECORDS SUMMARY | 2021-12-12 09:57 | XMS_ITS | Encounter Summary ---
:1999 Author Organization [employer] Address [address] [place] [address] Care Team Providers Name Role Phone Palmira Lim MD Primary Care Provider Encounter Details Date Type Department Care Team Description 07/14/2018 Lab Visit [facility] Uncontrolled type I diabetes mellitus without complication (HRC); [address] [facility] Thyroid enlargement [place], [place] [id number] Social History Tobacco Use Types Packs/Day Years [...] TSH, Sensitive 5.05 (H) 0.30 - 07/14/2018 GNOSTICIST 4.50 7:31 PM CDT LABORATORY uIU/mL Specimen Anatomical Collection Method / Collection Time Recei andrade Time (Source) Location / Volume Laterality Blood Venipuncture / 07/14/2018 2:43 07/14/2018 2:43 Unknown PM CDT PM CDT Lilian Fenton Joel [facility]_1 Performing Organization Address City/State/ZIP Code Phon e Number [facility] [address] [place] [address] documented in this encounter Visit Diagnoses Diagnosis Uncontrolled type I diabetes mellitus wi thout complication Thyroid enlargement (HRC) Goiter, unspecified documented in this encounter Care Teams Branch Sales Manager Relationship Specialty Start Date End Date Palmira Lim MD PCP - General 05/08/06 [address], [place] [address] documented as of this encounter
--- OUTSIDE RECORDS SUMMARY | 2021-12-12 09:57 | XMS_ITS | Encounter Summary ---
:1999 Author Organization [facility] Address [address] [place] [address] Care Team Providers Name Role Phone Palmira Lim MD Primary Care Provider Encounter Details Date Type Department Care Team Description 06/25/2010 Correspondence External to External, Provid er COMMUNICATION TO [place] [address] Social History Tobacco Use Types Packs/Day Years [...] on filedocumented in this encounter Care Teams Building Appraiser Relationship Specialty Start Date End Date Palmira Lim MD PCP - General 05/08/[address] [place], [place] [address] documented as of this encounter
--- OUTSIDE RECORDS SUMMARY | 2021-12-12 09:57 | XMS_ITS | Encounter Summary ---
:1999 Author Organization [employer] Address [address] [place] [address] Care Team Providers Name Role Phone Palmira Lim MD Primary Care Provider Reason for Visit Reason Comments DIABETES EDUCATION Consult/Transfer Care (Routine) - Closed Specialty Diagnoses / Procedures Referred By Contact Refer red To Contact Diagnoses Uncontrolled type I diabetes mellitus without complication Thyroid enlargement (HRC) Lilian Maldonado, KAIN [address] [place], [place] [address] Referral ID Status Reason Start Date Expiration Date Visits Requ ested Visits Authorized [id number] Closed 07/14/2018 10/13/2019 1 1 Encounter Details Date Type Department Care Team Description 10/13/2018 Office Visit [facility] Typ e 1 diabetes mellitus Diabet with hyperglycemia (HRC) [address] [facility] (Primary Dx) [place] [address] Social History Tobacco Use Types Packs/Day Years Used Date Smoking Tobacco: Every Day Cigarettes 0.3 1 Smokeless Tobacco: Never Alcohol Use Standard Drinks/Week Comments Yes 0 (1 standard drink = 0.6 oz pure alcoho l) on ocass Sex Assigned at Date Recorded Female 09/14/2020 7:23 AM CDT documented as of this encounter Progress Notes Michelle Almonte, MADDISON, CDE - 10/13/2018 2:15 PM CDT Subjective: Nabila attends unaccompanied. Dx with DM1 in 2016. [facility] Nabila is engaged and has a lot [...] grams and 1/40 >140 Schedule: Working at [employer], Thursday-Thursday 9 am-5 pm and [employer] Thursday Mornings and Sundays Food Recall: Typical Meal or Snack First Meal 5 piece romansh toast, may skip syrup OR 3 donuts OR Egg burrito + diet ice tea Snack Second Meal Subway foot long OR Cheeseburger, fries and 12 piece chicken nugget OR 3 chicken sandwiches and 1/2 impossible burger + diet soda Snack Third Meal Canaan wild wings mozzarella sticks, fried pickles, and a [place] chicken sandwich with fries OR 2 chicken tacos 1/2C rice OR Snack Patient Reported Current Meal Plan: CHO counting, uses the Active DSP Senait Alcohol Intake: None Beverages: diet soda [...] Fare For All Exercise: 24 Hour Fitness [email or web address] PLM Apps: Active DSP Follow-up: 11/17/18 Time spent with patient: 50 [...] Name Type Priority Associated Diagnoses Order [facility] Diabetes Education Referral Routine Uncontrolled type I Or dered: 07/14/2018 Visit diabetes mellitus without complication (HR C) Thyroid enlargement documented as of this encounter Visit Diagnoses Diagnosis Type 1 diabetes mellitus with hyperglyce jonah (HRC) - Primary Type I (juvenile type) diabetes mellitus without mention of complication, not stated as uncontrolled documented in this encounter Care Teams Grease And Tallow Pumper Relationship Specialty Start Date End Date Palmira Lim MD PCP - General 05/08/06 [address], [place] [address] documented as of this encounter
--- OUTSIDE RECORDS SUMMARY | 2021-12-12 09:57 | XMS_ITS | Encounter Summary ---
:1999 Author Organization [employer] Address [address] [place] [address] Care Team Providers Name Role Phone Palmira Lim MD Primary Care Provider Reason for Visit Reason Onset Date Comments Refill 03/29/2019 insulin lispro, kathie n, (HUMALOG) 100 UNIT/ML injection pen Encounter Details Date Type Department Care Team Description 03/29/2019 Refill [facility] [address] Lilian Maldonado, Re fill (insulin lispro, Endocrinology MBBS human, (HUMALOG) [address] [place] [address] T/ML injection pen) [place] [phone] Social History Tobacco Use Types Packs/Day Years Used Date Smoking Tobacco: Every Day Cigarettes 0.3 1 Smokeless Tobacco: Never Alcohol Use Standard Drinks/Week Comments Yes 0 (1 standard drink = 0.6 oz pure alcoho l) on ocass Sex Assigned at Date Recorded Female 09/14/2020 7:23 AM CDT documented as of this encounter Nursing Notes Luis Fernando Sher, RN - 03/30/2019 8:31 AM CST Renewed medication per medication refill protocol. Requested Prescriptions Pending Prescriptions Disp Refills ??? insulin lispro, human, (HUMALOG) 100 UNIT/ML injection pen 30 mL 2 Sig: Inject subcutaneously three times daily before meals. 1U for every 40 over 140 on sliding scale 1 U for every 8g carbs ORATE CONTROLLER Interface, Out [employer] Prov Query - 03/29/2019 1:17 PM CST [...] : 9.4 % on 10/20/2018 Powered by [employer], Reference: [id number], 03/29/2019 1:17:27 PM Don[place]on FIERRO: KEVIN PN NURSING TEAM 1 ([id number]) ORATE CONTROLLER Marquise Metcalf - 03/29/2019 1:16 PM CST Last appt: 11/17/18, Next: 04/27/19 ORATE CONTROLLER documented in this encounter Plan of Treatment Not on filedocumented as of this encounter Visit Diagnoses Diagnosis Uncontrolled type I diabetes mellitus wi out complication - Primary documented in this encounter Care Teams Digital Commentator Relationship Specialty Start Date End Date Palmira Lim MD PCP - General 05/08/06 [address] [address] documented as of this encounter
--- OUTSIDE RECORDS SUMMARY | 2021-12-12 09:57 | XMS_ITS | Encounter Summary ---
:1999 Author Organization [facility] Address [address] [place] [address] Care Team Providers Name Role Phone Palmira Lim MD Primary Care Provider Reason for Visit Reason Comments Medication Refill Question Encounter Details Date Type Department Care Team Description 01/12/[address] [facility] [address], Med ication Refill Endocrinology PA-C Question [address] [facility] [address] [place] [address]. [place] [phone] Social History Tobacco Use Types Packs/Day Years [...] Do you want to sign pended Rx? N'S STUDIES LECTURER Sharon Dover - 01/12/2020 12:08 PM CST [...] scale 1 U for every 6g carbs N'S STUDIES LECTURER documented in this encounter Plan of Treatment Not on filedocumented as of this encounter Visit Diagnoses Not on filedocumented in this encounter Care Teams Sub Master Relationship Specialty Start Date End Date Palmira Lim MD PCP - General 05/08/06 [address] [address] documented as of this encounter
--- OUTSIDE RECORDS SUMMARY | 2021-12-12 09:57 | XMS_ITS | Encounter Summary ---
:1999 Author Organization [employer] Address [address] [place] [address] Care Team Providers Name Role Phone Palmira Lim MD Primary Care Provider Reason for Visit Reason Comments Dental Conversion Legacy EDR to [place] convers ion Encounter Details Date Type Department Care Team Description 08/07/2016 Dental Conversion [facility] Path, [facility] DDS [address] [place] [address] Social History Tobacco Use Types [...] on filedocumented in this encounter Care Teams Nut Steamer Relationship Specialty Start Date End Date Palmira Lim MD PCP - General 05/08/[address] [place] [address] documented as of this encounter
--- OUTSIDE RECORDS SUMMARY | 2021-12-12 09:57 | XMS_ITS | Encounter Summary ---
:1999 Author Organization [employer] Address [address] [place] [address] Care Team Providers Name Role Phone Palmira Lim MD Primary Care Provider Encounter Details Date Type Department Care Team Description 11/12/2010 Correspondence [facility] Hiram Valladares, HEALTH EXAM FORM [address] [facility] [place] [address] [address] [facility] [phone] [place] [phone] (Wo rk) Social History Tobacco Use Types [...] on filedocumented in this encounter Care Teams Turntable Engineer Relationship Specialty Start Date End Date Palmira Lim MD PCP - General 05/08/[address] [place] [address] documented as of this encounter
--- OUTSIDE RECORDS SUMMARY | 2021-12-12 09:57 | XMS_ITS | Encounter Summary ---
:1999 Author Organization [employer] Address [address] [place] [address] Care Team Providers Name Role Phone Palmira Lim MD Primary Care Provider Reason for Visit Reason Comments LAB RESULTS Encounter Details Date Type Department Care Team Description 07/15/2018 Notes/Orders [facility] [address] Lilian Maldonado [facility] KAIN Will hypothyroidism (Primary 3800 [facility] [address] [facility] Dx) [place] [phone] Social History Tobacco Use Types Packs/Day Years [...] daily. Repeat blood work in 6 weeks. Sorcic, Carlee C, RN - 07/15/2018 7:46 AM CDT Left message to call back. Letter sent. documented in this encounter Plan of Treatment Not on filedocumented as of this encounter Visit Diagnoses Diagnosis Subclinical hypothyroidism - Primary Other specified acquired hypothyroidism documented in this encounter Care Teams Veterinary Technician Relationship Specialty Start Date End Date Palmira Lim MD PCP - General 05/08/06 [address], [place] [address] documented as of this encounter
--- OUTSIDE RECORDS SUMMARY | 2021-12-12 09:57 | XMS_ITS | Encounter Summary ---
:1999 Author Organization [employer] Address [address] [place] [address] Care Team Providers Name Role Phone Palmira Lim MD Primary Care Provider Reason for Visit Reason Onset Date Comments Joaquina 06/19/2010 Refill 06/19/2010 Encounter Details Date Type Department Care Team Description 06/19/[address] [facility] Joaquina Slaughter; Refill [address] [place] [address] [place], [place] [phone] (Wo rk) Social History Tobacco Use Types [...] AM CDTApproved Prescriptions: Disp Refills amphetamine-dextroamphetamine (AKA [id number] Tab 0Sig: Take 0.5 Tabs by mouth. [...] Will be ready for supervisor picking crew. .Katia Francis RN April Rodriguez - 06/19/2010 9:07 AM CDT Mom would like to supervisor picking crew 06/20/10. documented in this encounter Plan of Treatment Not on filedocumented as of this encounter Visit Diagnoses Diagnosis Attention deficit disorder with hyperact ivity(314.01) ([facility]) - Primary Attention deficit disorder with hyperact ivity documented in this encounter Care Teams Netsuite Developer Relationship Specialty Start Date End Date Palmira Lim MD PCP - General 05/08/[address] [place] [address] documented as of this encounter
--- OUTSIDE RECORDS SUMMARY | 2021-12-12 09:57 | XMS_ITS | Encounter Summary ---
:1999 Author Organization [employer] Address [address] [place] [address] Care Team Providers Name Role Phone Palmira Lim MD Primary Care Provider Reason for Referral Consult/Transfer Care (Routine) - Closed Specialty Diagnoses / Procedures Referred By Contact Refer red To Contact Diagnoses Paronychia of great toe, left Ann Evans APRN, CNP [address] [place] [place] [address] Referral ID Status Reason Start Date Expiration Date Visits Requ ested Visits Authorized [id number] Closed 08/04/2018 11/03/2019 1 1 Scheduling Instructions Your provider has recommended an appoint ment with [facility]. You may call [phone] to sc hedule your appointment. If you [...] Department Care Team Description 08/04/2018 Hospital Encounter [facility] Ann Evans, Paronychia of great Care MITZI NICK toe, left [address] Sae byron [facility], [address] [place] [address] [phone] Social History Tobacco Use Types Packs/Day Years [...] encounter Discharge Instructions Discharge InstructionsAnn Evans APRN, CANCER GENETIC COUNSELOR - 08/04/2018 1:43 PM CDT Images from the original note were not included. Paronychia in Children: Care Instructions Your Care Instructions Paronychia (say xpao-bw-RT-arabella-uh) is an infection of the skin around [...] of antibiotics. ?? Give your child an hizi-dwx-chhtrmb pain medicine, such as acetaminophen (Tylenol) or [...] can you learn more? 1. Go to https://Nitronex.IPP of [place]/Ocapolibrary or Zillabyte/Sportiliarary. 2. Enter H588 in the search box. Current as of: June 16, 2017 Content Version: 12.0 ?? 1977-1444 [employer]. Care instructions adapted under license by your healthcare professional. If you have questions about a medical condition or this instruction, always ask your healthcare professional. [employer] disclaims any warranty or liability for your [...] normal range. She has not tried any tcbb-rdg-ecpopkn medications or home remedies for symptoms. Patient's medications, allergies, past medical,surgical, social, and family histories were reviewed and updated as appropriate. MEDICATIONS: Reviewed in [employer] ADVERSE DRUG REACTIONS: Reviewed in [employer] PAST MEDICAL HISTORY: Reviewed in [employer] PAST SURGICAL HISTORY: Reviewed in [employer] ROS: Review of Systems - Negative except [...] painful. documented in this encounter Care Teams Linen Aide Relationship Specialty Start Date End Date Palmira Lim MD PCP - General 05/08/06 [address] [place] [address] documented as of this encounter
--- OUTSIDE RECORDS SUMMARY | 2021-12-12 09:57 | XMS_ITS | Encounter Summary ---
:1999 Author Organization [employer] Address [address] [place] [address] Care Team Providers Name Role Phone Palmira Lim MD Primary Care Provider Reason for Visit Reason Onset Date Comments Joaquina 08/01/2010 Refill 08/01/2010 Encounter Details Date Type Department Care Team Description 08/01/2010 Refill [facility] Katya Mccullough MD [place]; Refill [address] [place] [address] [place] [address] [phone] (Wo rk) Social History Tobacco Use Types [...] AM CDTApproved Prescriptions: Disp Refills amphetamine-dextroamphetamine (AKA [id number] Tab 0Sig: Take 0.5 Tabs by mouth. [...] Diagnosis Attention deficit disorder with hyperact ivity(314.01) ([facility]) - Primary Attention deficit disorder with hyperact ivity documented in this encounter Care Teams Client Hr Manager Relationship Specialty Start Date End Date Palmira Lim MD PCP - General 05/08/06 [address] [place] [address] documented as of this encounter
--- OUTSIDE RECORDS SUMMARY | 2021-12-12 09:57 | XMS_ITS | Encounter Summary ---
:2000 Author Organization [employer] Address [address] [place] [address] Care Team Providers Name Role Phone Palmira Lim MD Primary Care Provider Reason for Visit Reason Onset Date Comments Joaquina 04/17/2010 Refill 04/17/2010 Encounter Details Date Type Department Care Team Description 04/17/2010 Refill [facility] Katay Mccullough MD Ny[place]; Refill [address] [place] [address] [place] [address] [phone] (Wo rk) Social History Tobacco Use Types [...] PM CSTApproved Prescriptions: Disp Refills amphetamine-dextroamphetamine (AKA [id number] Tab 0Sig: Take 0.5 Tabs by mouth. every afternoonAuthorizing Provider: KATYA MCCULLOUGH User: KATIA JESUS amphetamine-dextroamphetamine (ADDERALL XR,30 Cap 0Sig: Take 1 Cap by mouth every morning.Authorizing Provider: KATYA MCCULLOUGH User: KATIA JESUS ANICAL SUPERVISOR Katia Ellis RN - 04/17/2010 1:12 PM CST Future appointment is scheduled. Request within appropriate time parameters. Prescription prepared for provider's signature. Will be mailed as requested. Katia Francis RN ANICAL SUPERVISOR Abby Ojeda - 04/17/2010 1:10 PM CST Please mail written RX's to home address. ANICAL SUPERVISOR documented in this encounter Plan of Treatment Not on filedocumented as of this encounter Visit Diagnoses Diagnosis Attention deficit disorder with hyperact ivity(314.01) ([facility]) - Primary Attention deficit disorder with hyperact ivity documented in this encounter Care Teams Link Trainer Maintenance Worker Relationship Specialty Start Date End Date Palmira Lim MD PCP - General 05/08/[address] [place] [address] documented as of this encounter
--- OUTSIDE RECORDS SUMMARY | 2021-12-12 09:57 | XMS_ITS | Encounter Summary ---
:1999 Author Organization [employer] Address [address] [place] [address] Care Team Providers Name Role Phone Palmira Lim MD Primary Care Provider Reason for Referral Consult/Transfer Care (Routine) - Closed Specialty Diagnoses / Procedures Referred By Contact Refer red To Contact Diagnoses Type 1 diabetes mellitus without complication (HRC) Jared Lopez APRN, CNP [id number] [place] [address] Referral ID Status Reason Start Date Expiration Date Visits Requ ested Visits Authorized [id number] Closed 05/20/2018 08/19/2019 1 1 Scheduling Instructions Your provider has recommended an appoint ment with [facility]. You may call [phone] to schedule your appoi ntment. If you do not schedule an appointment within the next 1 to 3 business days, we will call you. Reason for Visit Reason Comments Annual Exam Non-fasting Encounter Details Date Type Department Care Team Description 05/20/2018 Office Visit [facility] Jared Lopez w phillip exam (no gynecological exam) (Primary Dx); Saundra Chacon APRN, CNP Type 1 diabetes mellitus without complic ation (HRC); [address] [address] control counseling; Drive [place], [place] Screening, anemia, deficienc y, iron; [place] [address] Screening for HIV (human immunodeficienc y virus); [address] Routine screening for STI (s exually transmitted [...] 05/20/2018 10:15 AM C DT Growth Chart: [facility] [place] 2] (Girls, 2-20 Years) documented in this encounter Progress Notes Jared Lopez APRN, CNP - 05/20/2018 10:00 AM CDT Addended by: JARED LOPEZ on: 05/20/2018 02:42 PM Modules accepted: Orders Jared Lopez APRN, CNP - 05/20/2018 10:00 AM CDT Nabila Serna [id number] 2000 SUBJECTIVE: NABILA SERNA is a 17 y.o. female who presents to the clinic for a routine physical exam. She is , with Nexplanon removed 05/11 d/t unpredictable and prolonged bleeding. Menses before [...] Laterality Date ??? SURGICAL HX - NEG CREDIT ADMINISTRATOR HISTORY: OB History 0 Para 0 Term [...] Social History Social History Narrative Works at [employer]. Has long-term BF. HABITS: Tobacco: 1/4 pack [...] and sun protection. Jared Lopez APRN, MITZI [facility] NB: A voice recognition dictation system [...] - 05/20/2018 4:27 PM CDT Performed at [facility], [address] [place] [address] CLIA number [id number] Jared Lopez APRN, CNP LAB_1 Performing Organization Address [facility] Phon e Number PN SOFT [address] [place] [address] Chlamydia & GC, Urine (05/20/2018 11:05 AM CDT) athologist Signature Urine Negative Negative PN SOFT Chlamydia STD Comment: Test Performed by Metal Furniture Repairer Mediated Amplification Results obtained from this source are no t FDA approved. CLIA Number [id number] Urine N. gonnorrhoeae STD Negative Negative PN S OFT Comment: Test Performed by Metal Furniture Repairer Mediated Amplification Results obtained from this source are no t FDA approved. Performed at [facility], [address] [place] [address] ??[address] CLIA Number [id number] Specimen Anatomical Collection Method Collection Time Receive d Time (Source) Location / / Volume Laterality 05/20/2018 11:05 05/20/2018 4:01 AM CDT PM CDT Jared Lopez APRN, CNP LAB_1 Performing Organization Address [facility] Phon e Number PN SOFT [address] [place] [address] HIV 1/2 Ag/Ab 4th Generation (05/20/2018 10:58 AM CDT) Patholo gist Method Time Signature HIV-1 p24 Ag Nonreactive Nonreactive PN SOFT and HIV-1/HIV-2 Ab Specimen Anatomical Collection Method Collection Time Receive d Time (Source) Location / / Volume Laterality 05/20/2018 10:58 05/20/2018 4:17 AM CDT PM CDT Narrative PN SOFT - 05/20/2018 4:58 PM CDT Performed at [facility], [address] [place] [address] CLIA number [id number] Jared Lopez APRN, MITZI LAB_1 Performing Organization Address City/State/ZIP Code Phon e Number PN SOFT [address] [place] [address] [phone] (ABNORMAL) Basic Metabolic Panel (05/20/2018 10:58 AM [...] - 05/20/2018 2:40 PM CDT Performed at [facility], [address] [place] [address] CLIA number [id number] Jared Lopez APRN, CNP LAB_1 Performing Organization Address City/[facility]/ZIP Code Phon e Number PN SOFT [address] [place] [address] Lipid Panel and Direct LDL(If Needed) (05/20/2018 [...] - 05/20/2018 2:40 PM CDT Performed at [facility], [facility] [address] [place] [address] CLIA number [id number] Jared Lopez APRN, CNP LAB_1 Performing Organization Address [facility] Code Phon e Number PN SOFT [address] [place] [address] Hemoglobin, Blood (05/20/2018 10:57 AM CDT) P athologist Signature Hemoglobin 13.8 11.8 - 15.5 PN SOFT g/dL Specimen Anatomical Collection Method Collection Time Receive d Time (Source) Location / / Volume Laterality 05/20/2018 10:57 05/20/2018 AM CDT 10:57 AM CDT Narrative PN SOFT - 05/20/2018 11:06 AM CDT Performed at [facility], [address] [place] [address] CLIA number [id number] Jared Lopez APRN, CNP LAB_1 Performing Organization Address City/[facility]/ZIP Code Phon e Number PN SOFT [address] [place] [address] documented in this encounter Visit Diagnoses Diagnosis [...] se documented in this encounter Care Teams Quality Process Auditor Relationship Specialty Start Date End Date Palmira Lim MD PCP - General 05/08/[address] [place] [address] documented as of this encounter
--- OUTSIDE RECORDS SUMMARY | 2021-12-12 09:57 | XMS_ITS | Encounter Summary ---
:1999 Author Organization [employer] Address [address] [place] [address] Care Team Providers Name Role Phone Palmira Lim MD Primary Care Provider Reason for Visit Reason Comments Eye Exam Diabetes Encounter Details Date Type Department Care Team Description 11/16/2018 Office Visit Satish Enrique, Encounter for eye exam in patient with type 1 diabetes mellitus (HRC) (Primary Dx); Ophthalmology OD No diabetic retinopathy in either eye; [address] [address] [place] Myopia of both eyes; [place] [address] [place], [place] Regular astigmatism, bilater al [phone] (Wo rk) Social History Tobacco Use Types [...] patient with t ype 1 diabetes mellitus (HRC) - Primary No diabetic retinopathy in either eye Myopia of both eyes Myopia Regular astigmatism, bilateral documented in this encounter Care Teams Load Mixer Relationship Specialty Start Date End Date Palmira Lim MD PCP - General 05/08/[address] [place] [address] documented as of this encounter
--- OUTSIDE RECORDS SUMMARY | 2021-12-12 09:57 | XMS_ITS | Encounter Summary ---
:1999 Author Organization [employer] Address [address] [place] [address] Care Team Providers Name Role Phone Palmira Lim MD Primary Care Provider Reason for Visit Reason Onset Date Comments Joaquina 05/30/2010 Refill 05/30/2010 Encounter Details Date Type Department Care Team Description 05/30/2010 Refill [facility] Katya Mccullough MD Nygaard; Refill [address] [place] [address] [place], [place] [id number] (Wo rk) Social History Tobacco Use Types [...] AM CDTApproved Prescriptions: Disp Refills amphetamine-dextroamphetamine (AKA [id number] Tab 0Sig: Take 0.5 Tabs by mouth. every afternoonAuthorizing Provider: KATYA MCCULLOUGH User: KATIA JESUS amphetamine-dextroamphetamine (ADDERALL XR)30 Cap 0Sig: Take 1 Cap by mouth every morning.Authorizing Provider: KATYA MCCULLOUGH User: KATIA JESUS Katia Ellis RN - 05/30/2010 10:50 AM CDT Future appointment is scheduled. Request within appropriate time parameters. Prescription prepared for provider's signature. Will be ready for medicinal plant picker. Katia Francis RN April Rodriguez - 05/30/2010 10:36 AM CDT Mom would like to medicinal plant picker script. documented in this encounter Plan of Treatment Not on filedocumented as of this encounter Visit Diagnoses Diagnosis Attention deficit disorder with hyperact ivity(314.01) ([facility]) - Primary Attention deficit disorder with hyperact ivity documented in this encounter Care Teams Varnish Cooker Relationship Specialty Start Date End Date Palmira Lim MD PCP - General 05/08/[address] [place] [address] documented as of this encounter
--- OUTSIDE RECORDS SUMMARY | 2021-12-12 09:57 | XMS_ITS | Encounter Summary ---
:2000 Author Organization [employer] Address [address] [place] [address] Care Team Providers Name Role Phone Palmira Lim MD Primary Care Provider Reason for Visit Reason Comments Other Encounter Details Date Type Department Care Team Description 04/04/[address] [facility] [address] MBBS Other Endocrinology [address] [place] [address] [place] [address] [phone] Social History Tobacco Use Types Packs/Day Years [...] does want pens. Pharmacy was notified. INE DYER documented in this encounter Plan of Treatment Not on filedocumented as of this encounter Visit Diagnoses Not on filedocumented in this encounter Care Teams Software Design Manager Relationship Specialty Start Date End Date Palmira Lim MD PCP - General 05/08/[address] [address] documented as of this encounter
--- OUTSIDE RECORDS SUMMARY | 2021-12-12 09:58 | XMS_ITS | Encounter Summary ---
:1999 Author Organization [employer] Address [address] [place] [address] Care Team Providers Name Role Phone Palmira Lim MD Primary Care Provider Encounter Details Date Type Department Care Team Description 01/19/2009 Imaging [facility] Knee Pain [address] [place] [address] Social History Tobacco Use Types [...] Knee Pain Results f or this AP/LAT/SUN SHUTTLE VENEERING SUPERVISOR procedure are i n the results section. documented in this encounter Results XR KNEE AP/LAT/SUNRISE LEFT (01/19/2009 4:25 PM SHUTTLE VENEERING SUPERVISOR) Anatomical Region Laterality Modality Lower Extremity, Knee Computed Radiograp hy Specimen (Source) Anatomical Collection Method Collection Time Re ceived Time Location / / Volume Laterality 01/19/2009 4:25 PM SHUTTLE VENEERING SUPERVISOR Narrative 01/19/2009 6:04 PM SHUTTLE VENEERING SUPERVISOR LEFT KNEE 3 VIEWS 01/19/2009 INDICATION:Trauma pain. FINDINGS: No bone or joint abnormality. Procedure Note Lyly Fitch M - 01/19/2009 LEFT KNEE 3 VIEWS 01/19/2009 INDICATION:Trauma pain. FINDINGS: No bone or joint abnormality. Randa Marin MD RAD GD documented in this encounter Visit Diagnoses Diagnosis Knee pain Pain in joint, lower leg documented in this encounter Care Teams Accredited Legal Secretary Relationship Specialty Start Date End Date Palmira Lim MD PCP - General 05/08/[address] [place] [address] documented as of this encounter
--- OUTSIDE RECORDS SUMMARY | 2021-12-12 09:58 | XMS_ITS | Encounter Summary ---
:2000 Author Organization [employer] Address [address] [place] [address] Care Team Providers Name Role Phone Palmira Lim MD Primary Care Provider Reason for Visit Reason Onset Date Comments Joaquina 06/11/2009 Refill 06/11/2009 Encounter Details Date Type Department Care Team Description 06/11/[address] [facility] Katya Mccullough MD Ny[place]; Refill [address] [place] [address] [place] [address] [phone] (Wo rk) Social History Tobacco Use Types [...] for provider's signature. Will be ready for sweet pickle maker. Katia Francis RN Abby Ojeda - 06/11/2009 10:00 AM CDT Need written RX's for Adderall medication to sweet pickle maker at the clinic~ please call Twila at [phone] when ready. documented in this encounter Plan of Treatment Not on filedocumented as of this encounter Visit Diagnoses Not on filedocumented in this encounter Care Teams Tourist Agent Relationship Specialty Start Date End Date Palmira Lim MD PCP - General 05/08/[address] [place] [address] documented as of this encounter
--- OUTSIDE RECORDS SUMMARY | 2021-12-12 09:58 | XMS_ITS | Encounter Summary ---
:2000 Author Organization [employer] Address [address] [address] Care Team Providers Name Role Phone Palmira Lim MD Primary Care Provider Reason for Visit Reason Onset Date Comments Joaquina 04/05/2009 Refill 04/05/2009 Encounter Details Date Type Department Care Team Description 04/05/2009 Refill [facility] Katya Mccullough MD Ny[place]; Refill [address] [place] [address] [place] [address] [phone] (Wo rk) Social History Tobacco Use Types [...] morning.Authorizing Provider: KATYA MCCULLOUGH User: KATIA JESUS BLACKER Katia Ellis RN - 04/05/2009 9:57 AM CST Future appointment is scheduled. Request within appropriate time parameters. Prescription prepared for provider's signature. Will be mailed as requested. .Katia Francis RN BLACKER Abby Ojeda - 04/05/2009 9:24 AM CST Please mail written RX's to home address. Also need Adderall 5mg tablets salt combo. BLACKER documented in this encounter Plan of Treatment Not on filedocumented as of this encounter Visit Diagnoses Not on filedocumented in this encounter Care Teams Critical Care Paramedic Relationship Specialty Start Date End Date Palmira Lim MD PCP - General 05/08/[address] [address] documented as of this encounter
--- OUTSIDE RECORDS SUMMARY | 2021-12-12 09:58 | XMS_ITS | Encounter Summary ---
:1999 Author Organization [employer] Address [address] [place] [address] Care Team Providers Name Role Phone Palmira Lim MD Primary Care Provider Reason for Visit Reason Comments PE,C&TC 8 year physical Encounter Details Date Type Department Care Team Description 11/29/2008 Office Visit [facility] Palmira Lim Routine Infant or Child Heal th Check (Primary Dx); [address] Eliezer MD Need for Prophylactic Vaccination and In oculation Against Influenza; [place], [place] [address] [address] Attention Deficit Disorder with Hyperact ivity [phone] [place] [address] Social History Tobacco Use Types [...] 11/29/2008 3:06 PM CD T Growth Chart: [facility] (Girls, 2-20 Years) documented in this [...] check your child's insurance card or call [phone] for help. Nabila will need additional immunizations before starting seventh grade and should receive flu vaccine every fall. Please schedule an appointment on the nurses??? schedule for the flu vaccine. documented in this encounter Progress Notes Palmira Lim - 11/29/2008 3:07 PM CDT Subjective Nabila Serna is a 8 yr female who presents accompanied by her mother for routine child care center administrator. Parental/Patient Concerns absent SCHOOL Name: [employer] Grade: 4 Success: good Sports/Recreational Activities [...] ivity documented in this encounter Care Teams Electrical And Instrument Engineer Relationship Specialty Start Date End Date Palmira Lim MD PCP - General 05/08/[address] [place] [address] documented as of this encounter
--- OUTSIDE RECORDS SUMMARY | 2021-12-12 09:58 | XMS_ITS | Encounter Summary ---
:2000 Author Organization [employer] Address [address] [place] [address] Care Team Providers Name Role Phone Palmira Lim MD Primary Care Provider Encounter Details Date Type Department Care Team Description 10/11/2009 Correspondence [facility] Katya Kunz, LYNETTE SHETH STATEMENT Psychiatry MD OF [address] [address] Social History Tobacco Use [...] on filedocumented in this encounter Care Teams Executive Compensation Analyst Relationship Specialty Start Date End Date Palmira Lim MD PCP - General 05/08/[address] [place] [address] documented as of this encounter
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
--- OUTSIDE RECORDS SUMMARY | 2021-12-12 09:58 | XMS_ITS | Encounter Summary ---
:2000 Author Organization [employer] Address [address] [place] [address] Care Team Providers Name Role Phone Palmira Lim MD Primary Care Provider Reason for Visit Reason Onset Date Comments Joaquina 03/01/2009 Refill 03/01/2009 Encounter Details Date Type Department Care Team Description 03/01/2009 Refill [facility] Katya Mccullough MD [place]; Refill [address] [place] [address] [place] [address] [phone] (Wo rk) Social History Tobacco Use Types [...] on filedocumented in this encounter Care Teams Case Monitor Relationship Specialty Start Date End Date Palmira Lim MD PCP - General 05/08/06 [address] [address] documented as of this encounter
--- OUTSIDE RECORDS SUMMARY | 2021-12-12 09:58 | XMS_ITS | Encounter Summary ---
:1999 Author Organization [employer] Address [address] [place] [address] Care Team Providers Name Role Phone Palmira Lim MD Primary Care Provider Reason for Visit Reason Onset Date Comments SCABIES 01/30/2009 Encounter Details Date Type Department Care Team Description 01/30/2009 Telephone [facility] Palmira Lim MD SCABIES [address] [place] [address] [place], [place] [address] (Wo rk) Social History Tobacco Use Types [...] treat Tamara Caceres RN 01/30/2009, 3:59 PM LITATION WORKER documented in this encounter Plan of Treatment Not on filedocumented as of this encounter Visit Diagnoses Diagnosis Scabies - Primary documented in this encounter Care Teams Pasting Machine Operator Relationship Specialty Start Date End Date Palmira Lim MD PCP - General 05/08/06 [address], [place] [address] documented as of this encounter
--- OUTSIDE RECORDS SUMMARY | 2021-12-12 09:58 | XMS_ITS | Encounter Summary ---
:1999 Author Organization [employer] Address [address] [place] [address] Care Team Providers Name Role Phone Palmira Lim MD Primary Care Provider Reason for Visit Reason Onset Date Comments Joaquina 05/07/2009 Refill 05/07/2009 Encounter Details Date Type Department Care Team Description [facility] [place]; Refill [address] [address] [place] [address] [phone] (Wo rk) Social History Tobacco Use Types [...] one capsule in the morning.Authorizing Provider: KATYA MCCULLOGUH User: CAMILLA JACOB amphetamine-dextroamphetamine (AMPHETAMINE-30 0Sig: Take 1 po qafternoon.Fill after 03/05/09uthorizing Provider: KATYA MCCULLOUGH User: CAMILLA JACOB E OFFICE Camilla Jacob RN - 05/07/2009 2:37 PM CST Future appointment scheduled. Requested within appropriate time parameters. Prescription prepared for provider's signature. Will be ready for cigar packer and picker. Camilla Jacob RN E OFFICE April Rodriguez - 05/07/2009 11:04 AM CST Pt would like to cigar packer and picker script today at 4pm. Nabila's sister has an appt today with Dr. Mccullough @4 and they would like to pick the script up at that time. E OFFICE documented in this encounter Plan of Treatment Not on filedocumented as of this encounter Visit Diagnoses Not on filedocumented in this encounter Care Teams Mortgage Loan Originator Relationship Specialty Start Date End Date Palmira Lim MD PCP - General 05/08/06 [address] [place] [place] [address] documented as of this encounter
--- OUTSIDE RECORDS SUMMARY | 2021-12-12 09:58 | XMS_ITS | Encounter Summary ---
:1999 Author Organization [employer] Address [address] [place] [address] Care Team Providers Name Role Phone Palmira Lim MD Primary Care Provider Reason for Visit Reason Onset Date Comments Joaquina 08/13/2009 Refill 08/13/2009 Encounter Details Date Type Department Care Team Description 08/13/2009 Refill [facility] Katya Rios MD [place]; Refill [address] [place] [address] [place] [address] [phone] (Wo rk) Social History Tobacco Use Types [...] provider's signature. Will be ready for pick and shovel worker. Katia Francis RN Lisette Diaz - 08/13/2009 9:15 AM CDT Mom states they are going out of town. She would like to pick and shovel worker the Rx today. documented in this encounter Plan of Treatment Not on filedocumented as of this encounter Visit Diagnoses Diagnosis Attention deficit disorder with hyperact ivity(314.01) ([facility]) Attention deficit disorder with hyperact ivity documented in this encounter Care Teams Software Implementation Project Manager Relationship Specialty Start Date End Date Palmira Lim MD PCP - General 05/08/[address] [place] [address] documented as of this encounter
--- OUTSIDE RECORDS SUMMARY | 2021-12-12 09:58 | XMS_ITS | Encounter Summary ---
:1999 Author Organization [employer] Address [address] [place] [address] Care Team Providers Name Role Phone Palmira Lim MD Primary Care Provider Reason for Visit Reason Onset Date Comments Joaquina 11/26/2009 Refill 11/26/2009 Encounter Details Date Type Department Care Team Description 11/26/2009 Refill [facility] Katya Mccullough MD [place]; Refill [address] [place] [address] [place] [address] [phone] (Wo rk) Social History Tobacco Use Types [...] for provider's signature. Will be ready for curing pickling packer. Katia Francis RN Abby Ojeda - 11/26/2009 1:45 PM CDT Need written RX's today if possible out of medication to be picked up at the clinic ~ please call when ready. documented in this encounter Plan of Treatment Not on filedocumented as of this encounter Visit Diagnoses Diagnosis Attention deficit disorder with hyperact ivity(314.01) ([facility]) Attention deficit disorder with hyperact ivity documented in this encounter Care Teams Grain Cleaner Relationship Specialty Start Date End Date Palmira Lim MD PCP - General 05/08/06 [address], [place] [address] documented as of this encounter
--- OUTSIDE RECORDS SUMMARY | 2021-12-12 09:58 | XMS_ITS | Encounter Summary ---
:1999 Author Organization [employer] Address [address] [place] [address] Care Team Providers Name Role Phone Palmira Lim MD Primary Care Provider Reason for Visit Reason Onset Date Comments Joaquina 07/09/2009 Refill 07/09/2009 Encounter Details Date Type Department Care Team Description 07/09/2009 Refill [facility] Katya Rios MD [place]; Refill [address] [place] [address] [place] [address] [phone] (Wo rk) Social History Tobacco Use Types [...] Request within appropriate time parameters. [facility] provider's [facility] on 07[facility]10/09. Will be mailed as requested.Margo Francis RN April Rodriguez - 07/09/2009 9:56 AM CDT Please mail to home address. documented in this encounter Plan of Treatment Not on filedocumented as of this encounter Visit Diagnoses Not on filedocumented in this encounter Care Teams Trailer Chief Relationship Specialty Start Date End Date Palmira Lim MD PCP - General 05/08/[address] [place] [address] documented as of this encounter
--- OUTSIDE RECORDS SUMMARY | 2021-12-12 09:58 | XMS_ITS | Encounter Summary ---
:1999 Author Organization [employer] Address [address] [place] [address] Care Team Providers Name Role Phone Palmira Lim MD Primary Care Provider Reason for Visit Reason Onset Date Comments Joaquina 09/14/2009 Refill 09/14/2009 Encounter Details Date Type Department Care Team Description 09/14/2009 Refill [facility] Katya Mccullough MD [place]; Refill [address] [place] [address] [place] [address] [phone] (Wo rk) Social History Tobacco Use Types [...] provider's signature. Will be ready for sweet pickled fruit maker. Katia Ellis RN - 09/14/2009 1:22 PM CDT Will not be able to sweet pickled fruit maker today. No MD available to sign [...] documented in this encounter Care Teams Electrical Tech/Project Manager Relationship Specialty Start Date End Date Palmira Lim MD PCP - General 05/08/[address] [place] [address] documented as of this encounter
--- OUTSIDE RECORDS SUMMARY | 2021-12-12 09:58 | XMS_ITS | Encounter Summary ---
:1999 Author Organization [facility] Address [address] [place] [address] Care Team Providers Name Role Phone Palmira Lim MD Primary Care Provider Encounter Details Date Type Department Care Team Description 07/10/2009 Notes/Orders [facility] Kirsten Angel ttention Deficit Psychiatry MD Mario Disorder with [address] [facility]. [address] [place] [address] [place] (Primary Dx) [phone] [id number] Social History Tobacco Use Types Packs/Day Years [...] Diagnosis Attention deficit disorder with hyperact ivity(314.01) ([facility]) - Primary Attention deficit disorder with hyperact ivity documented in this encounter Care Teams Bottomer Operator Relationship Specialty Start Date End Date Palmira Lim MD PCP - General 05/08/[address] [place], [place] [address] documented as of this encounter
--- OUTSIDE RECORDS SUMMARY | 2021-12-12 09:58 | XMS_ITS | Encounter Summary ---
:1999 Author Organization [facility] Address [address] [place] [address] Care Team Providers Name Role Phone Palmira Lim MD Primary Care Provider Reason for Visit Reason Onset Date Comments Refill 11/29/2008 Encounter Details Date Type Department Care Team Description 11/29/2008 Refill [facility] Katya Rios MD Refill [address] [address] [place] [address] [place] [address] (Wo rk) Social History Tobacco [...] deficit disorder with hyperact ivity(314.01) ([facility]) - Primary Attention deficit disorder with hyperact ivity documented in this encounter Care Teams Entry Level Civil Engineer Relationship Specialty Start Date End Date Palmira Lim MD PCP - General 05/08/[address] [place] [address] documented as of this encounter
--- OUTSIDE RECORDS SUMMARY | 2021-12-12 09:58 | XMS_ITS | Encounter Summary ---
:1999 Author Organization [employer] Address [address] [place] [address] Care Team Providers Name Role Phone Palmira Lim MD Primary Care Provider Reason for Visit Reason Onset Date Comments Joaquina 12/25/2009 Refill 12/25/2009 Encounter Details Date Type Department Care Team Description 12/25/2009 Refill [facility] Katya Mccullough MD [place]; Refill [address] [place] [address] [place] [address] [phone] (Wo rk) Social History Tobacco Use Types [...] 12/26/2009 9:32 AM CDT Rx prepared for poultry picking machine tender.Katia Francis RN Nivia King RN - 12/25/2009 10:33 AM CDT Last RX 11/26 Last visit 05/24, next f/u 01/07 Future appointment scheduled. requested within appropriate time parameters. Prescription prepared for provider's signature. Will be ready for poultry picking machine tender on Thu when provider available for sig. per standing order MANDY Ferris Diamond Sher - 12/25/2009 9:01 AM CDT Please call when ready, has a couple of days left. Diamond Sher documented in this encounter Plan of Treatment Not on filedocumented as of this encounter Visit Diagnoses Diagnosis Attention deficit disorder with hyperact ivity(314.01) ([facility]) Attention deficit disorder with hyperact ivity documented in this encounter Care Teams Code Enforcement Officer Relationship Specialty Start Date End Date Palmira Lim MD PCP - General 05/08/06 [address] [address] documented as of this encounter
--- OUTSIDE RECORDS SUMMARY | 2021-12-12 09:58 | XMS_ITS | Encounter Summary ---
:1999 Author Organization [employer] Address [address] [place] [address] Care Team Providers Name Role Phone Palmira Lim MD Primary Care Provider Reason for Visit Reason Onset Date Comments Refill 01/05/2009 Encounter Details Date Type Department Care Team Description 01/05/2009 Refill [facility] Katya Rios MD Refill [address] [address] [place] [address] [place], [place] [id number] (Wo rk) Social History Tobacco Use Types [...] prepared for provider's signature. Margo Francis, RN RAN APPEALS REVIEWER documented in this encounter Plan of Treatment Not on filedocumented as of this encounter Visit Diagnoses Not on filedocumented in this encounter Care Teams Hoop Flaring Machine Operator Relationship Specialty Start Date End Date Palmira Lim MD PCP - General 05/08/[address] [place] [address] documented as of this encounter
--- OUTSIDE RECORDS SUMMARY | 2021-12-12 09:58 | XMS_ITS | Encounter Summary ---
:1999 Author Organization [employer] Address [address] [place] [address] Care Team Providers Name Role Phone Palmira Lim MD Primary Care Provider Reason for Visit Reason Comments INJURY, KNEE L knee Encounter Details Date Type Department Care Team Description 01/19/2009 [facility] Visit [facility] Tania Randa Knee Pain (Primary Dx); [address] Chayo Quezada MD Need for Prophylactic Vaccination [place] [address] [phone] [place], [place] [phone] Social History Tobacco Use Types Packs/Day Years [...] - - Pulse 102 01/19/2009 3:59 PM PETS SALESPERSON Temperature 36.4 ??C (97.6 ??F) 01/19/2009 3:59 PM PETS SALESPERSON Respiratory Rate - - Oxygen Saturation - - Inhaled Oxygen Concentration - - Weight 26.8 kg (59 lb) 01/19/2009 3:59 PM PETS SALESPERSON Height - - Body Mass Index - - documented in this encounter Patient Instructions Patient InstructionsDoLindsey galindo RN - 01/19/2009 3:59 PM CST To request proxy access for your children please: 1. Log on with your username and password to [email or web address] 2. Click on ???View all Patient Services at [facility]?? 3. Click ???Add a Child?? link 4. A screen will appear for you to add your child(renroberta) Full name and Date of . 5. Click on ???Send?? for the request to be submitted. When proxy access has been granted or if there are questions you will receive a message in your Online Patient Services Inbox. SALESPERSON documented in this encounter Progress Notes Randa [...] or worsens Randa Marin M.D. Internal Medicine/Pediatrics [facility] 01/29/2009 6:12 AM SALESPERSON documented in this encounter Plan of Treatment Not on filedocumented as of this encounter Visit Diagnoses Diagnosis Knee pain - Primary Pain in joint, lower leg Need for prophylactic vaccination and in oculation against influenza documented in this encounter Care Teams T[place]ion [place] Coiling Machine Setter Relationship Specialty Start Date End Date Palmira Lim MD PCP - General 05/08/[address] [place] [address] documented as of this encounter
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
--- OUTSIDE RECORDS SUMMARY | 2021-12-12 09:58 | XMS_ITS | Encounter Summary ---
:1999 Author Organization [facility] Address [address] [place] [address] Care Team Providers Name Role Phone Palmira Lim MD Primary Care Provider Encounter Details Date Type Department Care Team Description 10/17/2009 Office Visit [facility] Katya Kunz, Attennahomi n Deficit Psychiatry MD Disorder with [address] [facility], [address] [facility] (Primary [address] [place], [place] Dx) [place], [place] [phone] Social History Tobacco Use Types Packs/Day [...] Adderall and had positive feedback from the other sports coach or instructor. She had good end of the school [...] The family is discussing possibly moving to [place] to be nearer to his other 2 children. There has been much conflict with their mother not allowing them to visit [place]. Reviewedgrowth chart. Medical Review of Systems: no medical problems including gi,appetite suppression, [place], tics, palpitations; all other systems negative Labs: No indication for labs at this time. AIMS/DISCUS: N/A Chemical Use: No chemical use Social History Living Situation: bio mother Activities: hobbies/interests include choir, cello, karate Education: 5th grader at [employer] Mental Status Exam: Nabila is casually [...] at low risk for suicidal behavior. Diagnosis: [place] I: Attention deficit hyperactivity disorder, [place] II: None. [place] III: None. Plan: Add/change medications as follows: [...] Diagnosis Attention deficit disorder with hyperact ivity(314.01) ([facility]) - Primary Attention deficit disorder with hyperact ivity documented in this encounter Care Teams Line Mover Relationship Specialty Start Date End Date Palmira Lim MD PCP - General 05/08/06 [address] [place] [address] documented as of this encounter
--- OUTSIDE RECORDS SUMMARY | 2021-12-12 09:58 | XMS_ITS | Encounter Summary ---
:1999 Author Organization [employer] Address [address] [place] [address] Care Team Providers Name Role Phone Palmira Lim MD Primary Care Provider Encounter Details Date Type Department Care Team Description 01/07/2010 Office Visit [facility] [place] Katya Kunz, Attennahomi n deficit Psychiatry MD disorder with [address] [facility], [address] [place] [address] (Primary [address] [place], [place] Dx) [place], [place] [phone] Social History Tobacco Use Types Packs/Day [...] Comments Blood Pressure 128/73 01/07/2010 1:33 PM JEWEL BEARING BROACHER Pulse 121 01/07/2010 1:33 PM JEWEL BEARING BROACHER Temperature - - Respiratory Rate - - Oxygen Saturation - - Inhaled Oxygen Concentration - - Weight 31.8 kg (70 lb) 01/07/2010 1:33 PM JEWEL BEARING BROACHER Height 135.9 cm (4' 5.5) 01/07/2010 1:33 PM JEWEL BEARING BROACHER Body Mass Index 17.19 01/07/2010 1:33 PM JEWEL BEARING BROACHER Body Mass Index Percentile 52.41 % 01/07/2010 1:33 PM CS T Growth Chart: [facility] (Girls, 2-20 Years) documented in this encounter [...] choir, cello, karate Education: 5th grader at [employer] Mental Status Exam: Nabila is casually [...] at low risk for suicidal behavior. Diagnosis: [place] I: Attention deficit hyperactivity disorder, [place] II: None. [place] III: None. Plan: Continue current meds with no changes Appointment in: 4 months Visit Summary: medication management. This note was transcribed using Alfred technology and was released without complete editing. Katya Kunz MD L BEARING BROACHER documented in this encounter Plan of Treatment Not on filedocumented as of this encounter Visit Diagnoses Diagnosis Attention deficit disorder with hyperact ivity(314.01) ([facility]) - Primary Attention deficit disorder with hyperact ivity documented in this encounter Care Teams Surgical Instrument Mechanic Relationship Specialty Start Date End Date Palmira Lim MD PCP - General 05/08/06 [address], [place] [address] documented as of this encounter
--- OUTSIDE RECORDS SUMMARY | 2021-12-12 09:59 | XMS_ITS | Encounter Summary ---
:1999 Author Organization [employer] Address [address] [place] [address] Care Team Providers Name Role Phone Palmira Lim MD Primary Care Provider Encounter Details Date Type Department Care Team Description 12/19/2006 Emergency Room External to [facility], LT E YE/PERIORBITAL Provider SWELLING/WOODWI NDS Social History Tobacco Use Types Packs/Day Years Used Date Smoking Tobacco: Passive Smoke Exposure - Never Smoker Comments: mom smokes Alcohol Use Standard Drinks/Week Comments Not Asked 0 (1 standard drink = 0.6 oz pure alcoho l) Sex Assigned at Date Recorded Female 09/14/2020 7:23 AM CDT documented as of this encounter Progress Notes [facility], Provider - 12/19/2006 12:00 AM CDT documented in this encounter Plan of Treatment Not on filedocumented as of this encounter Visit Diagnoses Not on filedocumented in this encounter Care Teams Av Specialist Relationship Specialty Start Date End Date Palmira Lim MD PCP - General 05/08/[address] [place], [place] [address] documented as of this encounter
--- OUTSIDE RECORDS SUMMARY | 2021-12-12 09:59 | XMS_ITS | Encounter Summary ---
:1999 Author Organization [employer] Address [address] [place] [address] Care Team Providers Name Role Phone Palmira Lim MD Primary Care Provider Reason for Visit Reason Comments RASH in vaginal area Encounter Details Date Type Department Care Team Description 06/16/2007 Office Visit [facility] Vaginitis and Vulvovaginitis (Primary Dx); [address] Rash [place] N[place] [address] Social History Tobacco Use Types [...] Component Value Ref Test Analysis Performed At [facility] Range Method Time Signature Specimen Vagina Swab [facility] Description Special Unspecified [facility] Requests Culture Few ??Staphylococcus aureus, Beta Lactam ase Positive. ??(Test indicates [facility] resistance to the Pen/Amp class of antibiotics.) Culture Many Skin [facility] Susie Report Status Final [facility] 06/20/2007 Specimen Anatomical Collection Method Collection [...] Organization Address City/State/ZIP Code Phon e Number [facility] [phone] [address] documented in this encounter Visit Diagnoses Diagnosis Vaginitis and vulvovaginitis - Primary Vaginitis and vulvovaginitis, unspecifie d Rash and nonspecific skin eruption Rash and other nonspecific skin eruption documented in this encounter Care Teams Germ Drier Relationship Specialty Start Date End Date Palmira Lim MD PCP - General 05/08/[address] [place] [address] documented as of this encounter
--- OUTSIDE RECORDS SUMMARY | 2021-12-12 09:59 | XMS_ITS | Encounter Summary ---
:1999 Author Organization [employer] Address [address] [place] [address] Care Team Providers Name Role Phone Aislinn Arzate MD Primary Care Provider Encounter Details Date Type Department Care Team Description 08/14/2003 Office Visit [facility] Kay Bhatt FAMILY HX-EYE DISORD NEC; [address] HYPERMETROPIA; [place] [address] ASTIGMATISM NOS [phone] Social History Tobacco Use Types Packs/Day Years [...] unspecified documented in this encounter Care Teams Driller And Reamer Relationship Specialty Start Date End Date Aislinn Arzate MD PCP - General 12/08/01 10/20/04 [address] [place] [address] documented as of this encounter
--- OUTSIDE RECORDS SUMMARY | 2021-12-12 09:59 | XMS_ITS | Encounter Summary ---
:1999 Author Organization [employer] Address [address] [place] [address] Care Team Providers Name Role Phone Palmira Lim MD Primary Care Provider Reason for Visit Reason Onset Date Comments Joaquina 06/19/2008 Refill 06/19/2008 Encounter Details Date Type Department Care Team Description 06/19/2008 Refill [facility] Katya Mccullough MD [place]; Refill [address] [place] [address] [place], [place] [phone] (Wo rk) Social History Tobacco Use Types [...] for provider's signature. Will be ready for brick picker. Kasia Mejía RN Kasia Mejía RN - 06/20/2008 1:17 PM CDT Unable to leave a message - when dialed phone number, person who answered could not hear caller. Kasia Mejía RN Abby Ojeda - 06/19/2008 2:58 PM CDT Need written RX's for Adderall out of medication need SILVER will brick picker at the front office representative please call when ready. documented in this encounter Plan of Treatment Not on filedocumented as of this encounter Visit Diagnoses Not on filedocumented in this encounter Care Teams Branch Store Manager Relationship Specialty Start Date End Date Palmira Lim MD PCP - General 05/08/[address] [place] [address] documented as of this encounter
--- OUTSIDE RECORDS SUMMARY | 2021-12-12 09:59 | XMS_ITS | Encounter Summary ---
:1999 Author Organization [employer] Address [address] [place] [address] Care Team Providers Name Role Phone Diony Luque MD Primary Care Provider Reason for Visit Reason Onset Date Comments LEG PAIN 11/07/2004 right leg pain behin d knee Encounter Details Date Type Department Care Team Description 11/07/2004 Telephone [facility] Diony Luque MD LEG PAIN (right leg [address] pain behind knee) [place] [address] [place] [address] [phone] (Wo rk) Social History Tobacco Use Types [...] leg pain behind knee, came home from [facility] today limping, mom would like advise. documented in this encounter Plan of Treatment Not on filedocumented as of this encounter Visit Diagnoses Not on filedocumented in this encounter Care Teams Dynamo Repairer Relationship Specialty Start Date End Date Diony Luque MD PCP - General 10/21/04 05/07/06 [address] [place] [address] documented as of this encounter
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
--- OUTSIDE RECORDS SUMMARY | 2021-12-12 09:59 | XMS_ITS | Encounter Summary ---
:1999 Author Organization [employer] Address [address] [place] [address] Care Team Providers Name Role Phone Diony Luque MD Primary Care Provider Reason for Visit Reason Comments Sore Throat since yesterday COLD, NOS stuffy nose and cough since yesterday Encounter Details Date Type Department Care Team Description 04/16/2005 Office Visit [facility], Emma Chacon MD ACUTE PHARYNGITIS(SORE THROAT) (Primary Dx); [address] [place] [address] [facility] [phone] [place], [place] [address] Social History Tobacco Use Types Packs/Day Years [...] 37.1 ??C (98.8 ??F) 04/16/2005 1:00 PM PERSONAL COUNSELOR Respiratory Rate - - Oxygen Saturation - - Inhaled Oxygen Concentration - - Weight 18.7 kg (41 lb 2 oz) 04/16/2005 1:00 PM PERSONAL COUNSELOR Height - - Body Mass Index - - documented in this encounter Progress Notes 04/16/2005 1:00 PM PERSONAL COUNSELOR SUBJECTIVE: Nabila Serna is a 4 yr [...] Skin clear TESTS: Rapid Strep Screen: negative Russell spot: not indicated ASSESSMENT: viral pharyngitis PLAN: [...] PM Acute Res ults for this SCREEN PERSONAL COUNSELOR Pharyngitis(Sore procedure a re in Throat) the results section. documented in this encounter Results STREP GRP A, RAPID SCREEN (04/16/2005 1:44 PM PERSONAL COUNSELOR) [facility] Method Time Signature Patient Home None [facility] Phone # Patient Work None [facility] Phone # Grp A Rapid Negative NEG [facility] Screen Grp A Culture Negative NEG [facility] Final Specimen Anatomical Collection Method Collection Time Receive d Time (Source) Location / / Volume Laterality 04/16/2005 1:44 PM 6 1:45 PERSONAL COUNSELOR PM PERSONAL COUNSELOR Emma Park MD LAB_1 Performing Organization Address City/State/ZIP Code Phon e Number [facility] [phone] [facility] [address] [address] documented in this encounter Visit Diagnoses Diagnosis Acute pharyngitis - Primary Acute upper respiratory infections of un specified site documented in this encounter Care Teams Animal Trapper Relationship Specialty Start Date End Date Diony Luque MD PCP - General 10/21/04 05/07/06 [address] [place], [place] [id number] documented as of this encounter
--- OUTSIDE RECORDS SUMMARY | 2021-12-12 09:59 | XMS_ITS | Encounter Summary ---
:1999 Author Organization [employer] Address [address] [place] [address] Care Team Providers Name Role Phone Palmira Lim MD Primary Care Provider Reason for Visit Reason Onset Date Comments Joaquina 10/02/2008 Refill 10/02/2008 Encounter Details Date Type Department Care Team Description 10/02/2008 Refill [facility] Katya Mccullough MD [place]; Refill [address] [place] [address] [place] [address] [phone] (Wo rk) Social History Tobacco Use Types [...] for provider's signature. Will be prepared for slat pickler. Katia Francis RN Mary Jo Salgado - 10/02/2008 10:40 AM CDT Will slat pickler form documented in this encounter Plan of Treatment Not on filedocumented as of this encounter Visit Diagnoses Not on filedocumented in this encounter Care Teams Special Service Representative Relationship Specialty Start Date End Date Palmira Lim MD PCP - General 05/08/[address] [place] [address] documented as of this encounter
--- OUTSIDE RECORDS SUMMARY | 2021-12-12 09:59 | XMS_ITS | Encounter Summary ---
:1999 Author Organization [employer] Address [address] [place] [address] Care Team Providers Name Role Phone Palmira iLm MD Primary Care Provider Encounter Details Date Type Department Care Team Description 04/05/2008 Scanned History External to External, [facility] No [place] [address] Social History Tobacco Use Types Packs/Day Years Used Date Smoking Tobacco: Passive Smoke Exposure - Never Smoker Comments: mom smokes Alcohol Use Standard Drinks/Week Comments Not Asked 0 (1 standard drink = 0.6 oz pure alcoho l) Sex Assigned at Date Recorded Female 09/14/2020 7:23 AM CDT documented as of this encounter Progress Notes Interface, In Chrtscr And Scan - 04/05/2008 12:38 PM STEREO OPERATOR EO OPERATOR documented in this encounter Plan of Treatment Not on filedocumented as of this encounter Visit Diagnoses Not on filedocumented in this encounter Care Teams Supervisor Mails Relationship Specialty Start Date End Date Palmira Lim MD PCP - General 05/08/[address] [place], [place] [address] documented as of this encounter
--- OUTSIDE RECORDS SUMMARY | 2021-12-12 09:59 | XMS_ITS | Encounter Summary ---
:1999 Author Organization [employer] Address [address] [place] [address] Care Team Providers Name Role Phone Diony Luque MD Primary Care Provider Encounter Details Date Type Department Care Team Description 04/30/2005 Correspondence None [facility], Provider CONSENT AND RELEASE Social History Tobacco Use Types Packs/Day Years Used Date Smoking Tobacco: Passive Smoke Exposure - Never Smoker Comments: mom smokes Alcohol Use Standard Drinks/Week Comments Not Asked 0 (1 standard drink = 0.6 oz pure alcoho l) Sex Assigned at Date Recorded Female 09/14/2020 7:23 AM CDT documented as of this encounter Progress Notes [facility], Provider - 04/30/2005 12:00 AM CARPENTER PROTOTYPE documented in this encounter Plan of Treatment Not on filedocumented as of this encounter Visit Diagnoses Not on filedocumented in this encounter Care Teams Icer Hand Relationship Specialty Start Date End Date Diony Luque MD PCP - General 10/21/[address] [place] [address] documented as of this encounter
--- OUTSIDE RECORDS SUMMARY | 2021-12-12 09:59 | XMS_ITS | Encounter Summary ---
:1999 Author Organization [employer] Address [address] [place] [address] Care Team Providers Name Role Phone Aislinn Arzate MD Primary Care Provider Reason for Visit Reason Comments LICE,HEAD Encounter Details Date Type Department Care Team Description 09/17/2002 Telephone Careline Brando Diallo RN LICE,HEAD [address] [facility] [place], [place] [address] [phone] [place] [address] Social History Tobacco Use Types Packs/Day Years Used Date Smoking Tobacco: Never Assessed Sex Assigned at Date Recorded Female 09/14/2020 7:23 AM CDT documented as of this encounter Nursing Notes 09/17/2002 11:59 PM CDT >> LYLA DIALLO Sat Sep 17, 2002 2:[address] [facility] >> LYLA DIALLO Sat Sep 17, 2002 1:47 PM >> CALL RECEIVED. Contact: mom [facility] [phone] GUIDELINE: LICE HEAD - PEDS CNG (c) [...] as been caused by too, frequent treatment., [place] oil or mayonaise can be used instead [...] on filedocumented in this encounter Care Teams Watcher Automat Long Goods Relationship Specialty Start Date End Date Aislinn Arzate MD PCP - General 12/08/01 10/20/04 [address] [place] [address] documented as of this encounter
--- OUTSIDE RECORDS SUMMARY | 2021-12-12 09:59 | XMS_ITS | Encounter Summary ---
:1999 Author Organization [employer] Address [address] [place] [address] Care Team Providers Name Role Phone Aislinn Arzate MD Primary Care Provider Reason for Visit Reason Comments RUNNY NOSE Encounter Details Date Type Department Care Team Description 04/25/2002 Telephone Careline Esther Jones RN RUNNY NOSE [address] [place], [place] [address] [phone] [facility] [address] Social History Tobacco Use Types Packs/Day Years Used Date Smoking Tobacco: Never Assessed Sex Assigned at Date Recorded Female 09/14/2020 7:23 AM CDT documented as of this encounter Nursing Notes 04/25/2002 11:59 PM CO FOUNDER AND CTO >> ESTHER JONES ThuApr 25, 2002 12:30 PM >> COMPLETED ON ThuApr 25, 2002 1:45 PM >> CALL RECEIVED. Contact: 8am call: [email or web address]; mom asks to bring pt and sibs [...] on filedocumented in this encounter Care Teams Lead Recoverer Relationship Specialty Start Date End Date Aislinn Arzate MD PCP - General 12/08/01 10/20/04 [address] [place] [address] documented as of this encounter
--- OUTSIDE RECORDS SUMMARY | 2021-12-12 09:59 | XMS_ITS | Encounter Summary ---
:1999 Author Organization [employer] Address [address] [place] [address] Care Team Providers Name Role Phone Aislinn Arzate MD Primary Care Provider Reason for Visit Reason Onset Date Comments LICE,HEAD 01/14/2004 Encounter Details Date Type Department Care Team Description 01/14/2004 Telephone Careline Camilla Renae RN LICE,HEAD [address] [place], [place] [address] [place] [address] [phone] Social History Tobacco Use Types Packs/Day Years Used Date Smoking Tobacco: Never Assessed Sex Assigned at Date Recorded Female 09/14/2020 7:23 AM CDT documented as of this encounter Nursing Notes 01/14/2004 11:59 PM CRAY FISHING HAND >> CAMILLA PUENTE Sun Jan 14, 2004 [...] interferes with the, NIX remaining on the presotn ir shaft;, Comb out nits with a [...] on filedocumented in this encounter Care Teams Lime Kiln Worker Helper Relationship Specialty Start Date End Date Aislinn Arzate MD PCP - General 12/08/01 10/20/04 [address] [place], [place] [id number] documented as of this encounter
--- OUTSIDE RECORDS SUMMARY | 2021-12-12 09:59 | XMS_ITS | Encounter Summary ---
:1999 Author Organization [email or web address] Address [address] [place] [address] Care Team Providers Name Role Phone Diony Luque MD Primary Care Provider Encounter Details Date Type Department Care Team Description 07/16/2005 Emergency Room External to [facility], HAND INJURY- [facility] Provider Social History Tobacco Use Types Packs/Day Years Used Date Smoking Tobacco: Passive Smoke Exposure - Never Smoker Comments: mom smokes Alcohol Use Standard Drinks/Week Comments Not Asked 0 (1 standard drink = 0.6 oz pure alcoho l) Sex Assigned at Date Recorded Female 09/14/2020 7:23 AM CDT documented as of this encounter Progress Notes [facility], Provider - 07/16/2005 12:00 AM CDT documented in this encounter Plan of Treatment Not on filedocumented as of this encounter Visit Diagnoses Not on filedocumented in this encounter Care Teams Tire Groover Relationship Specialty Start Date End Date Diony Luque MD PCP - General 10/21/04 05/07/06 [address] [place] [address] documented as of this encounter
--- OUTSIDE RECORDS SUMMARY | 2021-12-12 09:59 | XMS_ITS | Encounter Summary ---
:1999 Author Organization [employer] Address [address] [place] [address] Care Team Providers Name Role Phone Diony Luque MD Primary Care Provider Reason for Visit Reason Onset Date Comments FEVER 04/29/2005 Encounter Details Date Type Department Care Team Description 04/29/2005 Telephone Careline Cristine Acosta RN FEVER [address] [place], [place] [address] Social History Tobacco Use Types Packs/Day Years Used Date Smoking Tobacco: Passive Smoke Exposure - Never Smoker Comments: mom smokes Alcohol Use Standard Drinks/Week Comments Not Asked 0 (1 standard drink = 0.6 oz pure alcoho l) Sex Assigned at Date Recorded Female 09/14/2020 7:23 AM CDT documented as of this encounter Nursing Notes 04/29/2005 11:59 PM TABLE GAMES DUAL RATE SUPERVISOR >> CRISTINE Sullivan Apr 29, 2005 12:22 [...] on filedocumented in this encounter Care Teams Bog Worker Relationship Specialty Start Date End Date Diony Luque MD PCP - General 10/21/04 05/07/[address] [place] [address] documented as of this encounter
--- OUTSIDE RECORDS SUMMARY | 2021-12-12 09:59 | XMS_ITS | Encounter Summary ---
:1999 Author Organization [employer] Address [address] [place] [address] Care Team Providers Name Role Phone Palmira Lim MD Primary Care Provider Reason for Visit Reason Comments Exposed to Head Lice Encounter Details Date Type Department Care Team Description 07/17/2001 Telephone Careline Aurora Underwood, RN [address] [address] [facility] [place] [address] [place] [address] [phone] (Wo rk) Social History Tobacco Use Types [...] on filedocumented in this encounter Care Teams Assembler Movement Relationship Specialty Start Date End Date Palmira Lim MD PCP - General 99 12/07/01 [address] [address] documented as of this encounter
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
--- OUTSIDE RECORDS SUMMARY | 2021-12-12 09:59 | XMS_ITS | Encounter Summary ---
:1999 Author Organization [employer] Address [address] [place] [address] Care Team Providers Name Role Phone Palmira [...] on filedocumented in this encounter Care Teams School Custodian Relationship Specialty Start Date End Date Palmira Lim MD PCP - General 05/08/[address] [place], [place] [address] documented as of this encounter
--- OUTSIDE RECORDS SUMMARY | 2021-12-12 09:59 | XMS_ITS | Encounter Summary ---
:1999 Author Organization [employer] Address [address] [place] [address] Care Team Providers Name Role Phone Aislinn Arzate MD Primary Care Provider Encounter Details Date Type Department Care Team Description 08/14/2003 Correspondence None Unknown, [facility] CONSENT AND RELEASE [address] [address] (Wo rk) Social History Tobacco [...] on filedocumented in this encounter Care Teams Tag Clerk Relationship Specialty Start Date End Date Aislinn Arzate MD PCP - General 12/08/01 10/20/04 [address] [place] [address] documented as of this encounter
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
--- OUTSIDE RECORDS SUMMARY | 2021-12-12 09:59 | XMS_ITS | Encounter Summary ---
:1999 Author Organization [employer] Address [address] [place] [address] Care Team Providers Name Role Phone Palmira Lim MD Primary Care Provider Reason for Visit Reason Onset Date Comments Joaquina 08/17/2008 Refill 08/17/2008 Encounter Details Date Type Department Care Team Description 08/17/[address] [facility] Katya Mccullough MD [place]; Refill [address] [place] [address] [place] [address] [phone] (Wo rk) Social History Tobacco Use Types [...] Will be ready for supervisor picking crew. Diamond Sher - 08/17/2008 1:33 PM CDT If possible, can she pick this up today, if not tomorrow. Diamond Sher documented in this encounter Plan of Treatment Not on filedocumented as of this encounter Visit Diagnoses Not on filedocumented in this encounter Care Teams Digital Data Analyst Relationship Specialty Start Date End Date Palmira Lim MD PCP - General 05/08/[address] [facility] [place] [address] documented as of this encounter
--- OUTSIDE RECORDS SUMMARY | 2021-12-12 09:59 | XMS_ITS | Encounter Summary ---
:1999 Author Organization [employer] Address [address] [place] [address] Care Team Providers Name Role Phone Palmira Lim MD Primary Care Provider Reason for Visit Reason Comments WELL CHILD EXAM Encounter Details Date Type Department Care Team Description 10/05/2006 Office Visit [facility] Palmira Lim Routine or [address] MD Child Health Check [place], [place] [id number] [address] (Primary Dx) [phone] [place], [place] [phone] Social History Tobacco Use Types Packs/Day Years [...] cm (3' 10.5) 10/05/2006 9:00 AM CDT Spptes-kbi-Hpqnzt Percentile 80.87 % 10/05/2006 9:00 AM CDT Growth Chart: [facility] (Girls, 2-20 Years) Body Mass Index 17.03 10/05/2006 9:00 AM CDT Body Mass Index Percentile 78.57 % 10/05/2006 9:00 AM CD T Growth Chart: [facility] (Girls, 2-20 Years) documented in this encounter Patient Instructions Patient Laencxjnzyul29/06/2007 9:12 AM CDT It has been a pleasure attending to Nabial's health maintenance needs today. documented in this encounter Progress Notes Palmira Lim P - 10/05/2006 9:12 AM CDT S> Nabila Serna is a 6 yr female who presents accompanied by her mother for routine child life assistant. PARENTAL/PATIENT CONCERNS: absent ----- SCHOOL Name: [employer] Grade: Entering 2nd Grade Success: Good [...] R: 20/ 20 Lenses: NO audiogram results: Right:[phone] 20 2000 20 4000 20 Left: [phone] 20 2000 20 4000 20 Neelam Delgadillo CMA documented in this encounter Plan of Treatment Not on filedocumented as of this encounter Visit Diagnoses Diagnosis Routine infant or child health check - P rimary documented in this encounter Care Teams Electronic Warfare Operator Relationship Specialty Start Date End Date Palmira Lim MD PCP - General 05/08/[address] [place] [address] documented as of this encounter
--- OUTSIDE RECORDS SUMMARY | 2021-12-12 09:59 | XMS_ITS | Encounter Summary ---
:1999 Author Organization [employer] Address [address] [place] [address] Care Team Providers Name Role Phone Diony Luque MD Primary Care Provider Reason for Visit Reason Comments FEVER 3 day fever 102. Encounter Details Date Type Department Care Team Description 04/30/2005 Office Visit [facility] Emma Park MD STREP SORE THROAT (Primary Dx); [address] [place] [address] [facility] [phone] [place], [place] [address] Social History Tobacco Use Types Packs/Day Years [...] - - Pulse 83 04/30/2005 3:20 PM AIRCRAFT CYLINDER MECHANIC Temperature 36.2 ??C (97.2 ??F) 04/30/2005 3:20 PM AIRCRAFT CYLINDER MECHANIC Respiratory Rate 24 04/30/2005 3:20 PM AIRCRAFT CYLINDER MECHANIC Oxygen Saturation 100% 04/30/2005 3:20 PM AIRCRAFT CYLINDER MECHANIC Inhaled Oxygen Concentration - - Weight 19.4 kg (42 lb 12.8 oz) 04/30/2005 3:20 PM AIRCRAFT CYLINDER MECHANIC Height - - Body Mass Index - - documented in this encounter Progress Notes 04/30/2005 3:20 PM AIRCRAFT CYLINDER MECHANIC This office note has been dictated. MD [...] if symptoms worsen or persist. P cc: RAFT CYLINDER MECHANIC documented in this encounter Plan of Treatment Not on filedocumented as of this encounter Procedures Procedure Name Priority Date/Time Associated Diagnosis Comme nts STREP GRP A, RAPID Waiting 04/30/2005 5:38 PM Strep Sore Throa t Results for this SCREEN AIRCRAFT CYLINDER MECHANIC procedure are i n the results section. COMPLETE BLOOD Waiting 04/30/2005 4:26 PM Fever Results for this COUNT-W/DIFF AIRCRAFT CYLINDER MECHANIC procedure are i n the results section. documented in this encounter Results (ABNORMAL) STREP GRP A, RAPID SCREEN (04/30/2005 5:38 PM AIRCRAFT CYLINDER MECHANIC) Patholo gist Method Time Signature Patient Home None [facility] Phone # Patient Work None [facility] Phone # Grp A Rapid Positive (A) NEG [facility] Screen Specimen Anatomical Collection Method Collection Time Receive d Time (Source) Location / / Volume Laterality 04/30/2005 5:38 PM 6 5:39 AIRCRAFT CYLINDER MECHANIC PM AIRCRAFT CYLINDER MECHANIC Emma Park MD LAB_1 Performing Organization Address City/State/ZIP Code Phon e Number [facility] [phone] [facility] [address] [address] (ABNORMAL) HEMOGRAM/PLTS/DIFF (04/30/2005 4:26 PM AIRCRAFT CYLINDER MECHANIC) P athologist Signature WBC 16.9 (H) 5.0 - 14.5 [facility] k/ul Comment: All Parameters Rechecked RBC 4.47 3.9 - 5.3 M/ul [facility] Hemoglobin 11.9 11.5 - 13.5 g/dl [facility] HCT 34.2 34.0 - 40.0 % [facility] MCV 76.4 75 - 87 fl [facility] MCH 26.6 24 - 30 pg [facility] MCHC 34.8 32 - 36 % [facility] RDW 13.0 11.5 - 15.0 % [facility] Platelets 273 150 - 450 k/ul [facility] PMN/Band 80 (H) 32 - 64 % [facility] Lymph 14 (L) 28 - 48 % [facility] [place] 5 4 - 12 % [facility] Eos 1 0 - 8 % [facility] Baso 0 0 - 1 % [facility] Neutrophil Absolute 13.5 (H) 1.5 - 8.5 k/ul [facility] Lymph Absolute 2.4 2.0 - 8.0 k/ul [facility] [place] Absolute 0.8 0.0 - 1.0 k/ul [facility] Eos Absolute 0.2 0.0 - 0.5 k/ul [facility] Baso Absolute 0.0 0.0 - 0.2 k/ul [facility] Morphology N/N [facility] Specimen Anatomical Collection Method Collection Time Receive d Time (Source) Location / / Volume Laterality 04/30/2005 4:26 PM 4:27 AIRCRAFT CYLINDER MECHANIC PM AIRCRAFT CYLINDER MECHANIC Emma Park MD LAB_1 Performing Organization Address City/State/ZIP Code Phon e Number [facility] [phone] [facility] [address] [address] documented in this encounter Visit Diagnoses Diagnosis Streptococcal sore throat - Primary Fever and other physiologic disturbances of temperature regulation documented in this encounter Care Teams Steel Construction Worker Relationship Specialty Start Date End Date Diony Luque MD PCP - General 10/21/04 05/07/06 [address] [place], [place] [id number] documented as of this encounter
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
--- OUTSIDE RECORDS SUMMARY | 2021-12-12 09:59 | XMS_ITS | Encounter Summary ---
:1999 Author Organization [employer] Address [address] [place] [address] Care Team Providers Name Role Phone Palmira Lim MD Primary Care Provider Reason for Visit Reason Onset Date Comments LAB RESULTS 06/20/2007 Encounter Details Date Type Department Care Team Description 06/20/2007 Telephone [facility] Carrol Perez, LAB RESULTS [address] [place] [address] [phone] [place] [address] Social History Tobacco Use Types [...] on filedocumented in this encounter Care Teams Vocational Psychologist Relationship Specialty Start Date End Date Palmira Lim MD PCP - General 05/08/[address] [place] [address] documented as of this encounter
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
--- OUTSIDE RECORDS SUMMARY | 2021-12-12 09:59 | XMS_ITS | Encounter Summary ---
:1999 Author Organization [employer] Address [address] [place] [address] Care Team Providers Name Role Phone Palmira Lim MD Primary Care Provider Encounter Details Date Type Department Care Team Description 06/29/2000 Office Visit [facility] Palmira Lim ROUTINE CHILD HEALTH EXAM; [address] Eliezer MD VACCINE FOR DTP; [place] [address] VACCINE FOR IPV (POLIOMYELITIS); [phone] [place], [place] VACCINE FOR STREP PNEUMONIAE [address] Social History Tobacco Use Types Packs/Day Years Used Date Smoking Tobacco: Never Assessed Sex Assigned at Date Recorded Female 09/14/2020 7:23 AM CDT documented as of this encounter Plan of Treatment Not on filedocumented as of this encounter Visit Diagnoses Diagnosis Routine infant or child health check Need for DTP vaccine Need for prophylactic vaccination with c ombined hzfuevigmt-jgvxmeo-vjzhiccme (DTP) vaccine Need for prophylactic vaccination and in oculation against poliomyelitis Need for prophylactic vaccination agains t Streptococcus pneumoniae (pneumococcus) Need for prophylactic vaccination agains t streptococcus pneumoniae (pneumococcus) documented in this encounter Care Teams Religious Ritual Slaughterer Relationship Specialty Start Date End Date Palmira Lim MD PCP - General 99 12/07/01 [address], [place] [address] documented as of this encounter
--- OUTSIDE RECORDS SUMMARY | 2021-12-12 09:59 | XMS_ITS | Encounter Summary ---
:1999 Author Organization [employer] Address [address] [place] [address] Care Team Providers Name Role Phone Palmira Lim MD Primary Care Provider Reason for Visit Reason Onset Date Comments EYE WATERING 12/19/2006 SWELLING, EYELIDS 12/19/2006 Encounter Details Date Type Department Care Team Description 12/19/2006 Telephone Careline Emily Hinson RN EYE WATERING; SWELLING, [address] [place], [place] [address] Social History Tobacco Use Types [...] On her way with pt to the [facility], she is 5 blocks away from clinic but states the wait time is 45 min., asking if she should have her seen somewhere else? She was outside playing and when she came inside her lt eye seems swollen, almost twice the normalsize, watery and upper and lower eyelids are swollen No vision changes Plan: she is so close to the [facility] she should have her seen there now. Emily Hinson RN documented in this encounter Plan of Treatment Not on filedocumented as of this encounter Visit Diagnoses Not on filedocumented in this encounter Care Teams Advertising Teacher Relationship Specialty Start Date End Date Palmira Lim MD PCP - General 05/08/06 [address] [place] [address] documented as of this encounter
--- OUTSIDE RECORDS SUMMARY | 2021-12-12 09:59 | XMS_ITS | Encounter Summary ---
:1999 Author Organization [employer] Address [address] [place] [address] Care Team Providers Name Role Phone Diony Luque MD Primary Care Provider Reason for Visit Reason Comments WELL CHILD EXAM Encounter Details Date Type Department Care Team Description 11/06/2004 Office Visit [facility] RadhaDhruv, EFRAIN MILLER CHILD HEALTH EXAM (Primary Dx); Practice MD VACCINE FOR IPV (POLIOMYELITIS); [address] [facility] VACCINE [id number] ; [place] [address] DRIVE VACCINE FOR DTP [phone] [place] [address] (Wo rk) Social History Tobacco [...] cm (3' 5) 11/06/2004 3:30 PM CDT Nkswyl-kvf-Wxybpv Percentile 78.66 % 11/06/2004 3:30 PM CDT Growth Chart: [facility] (Girls, 2-20 Years) Body Mass Index 16.56 11/06/2004 3:30 PM CDT Body Mass Index Percentile 81.62 % 11/06/2004 3:30 PM CD T Growth Chart: [facility] (Girls, 2-20 Years) documented in this encounter Patient Instructions Patient Qaninryoxrdg81/07/2005 3:00 PM CDT It has been a pleasure attending to Nabila's health maintenance needs today. documented in this encounter Progress Notes 11/06/2004 3:00 PM CDT S> Nabila Serna is a 4 yr female who presents accompanied by mother for well child care team lead. PARENTAL CONCERNS: None Daycare/Preschool/School: School: Name: [employer], grade: Kindergarten Patient's family history None on [...] indicated Carolin Mueller LPN ----- DEVELOPMENTAL MILESTONES: [place] [facility] Screening passed for age. Goes to [...] 20/ 25 -2 Lenses: NO audiogram results: Right:570 61 4452 15 2000 15 4000 5 Left: 006 39 9923 20 2000 25 4000 20 Carolin Mueller LPN documented in this encounter Plan of Treatment Not on filedocumented as of this encounter Visit Diagnoses Diagnosis Routine infant or child health check - P rimary Need for prophylactic vaccination and in oculation against poliomyelitis Need for prophylactic vaccination with m cbbxdc-cqnvu-cfqgcwm (MMR) vaccine Need for DTP vaccine Need for prophylactic vaccination with c ombined ipxkgafxlw-bbdwwuz-jsmkteycc (DTP) vaccine documented in this encounter Care Teams Center Administrator Relationship Specialty Start Date End Date Diony Luque MD PCP - General 10/21/04 05/07/[address] [place] [address] documented as of this encounter
--- OUTSIDE RECORDS SUMMARY | 2021-12-12 09:59 | XMS_ITS | Encounter Summary ---
:1999 Author Organization [employer] Address [address] [place] [address] Care Team Providers Name Role Phone Palmira Lim MD Primary Care Provider Encounter Details Date Type Department Care Team Description 06/25/2006 Correspondence External to External, Provid er HEALTH [place] [address] Social History Tobacco Use Types Packs/Day Years [...] filedocumented in this encounter Care Teams Supervisor Quilting Relationship Specialty Start Date End Date Palmira Lim MD PCP - General 05/08/[address] [place], [place] [address] documented as of this encounter
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
--- OUTSIDE RECORDS SUMMARY | 2021-12-12 09:59 | XMS_ITS | Encounter Summary ---
:1999 Author Organization [employer] Address [address] [place] [address] Care Team Providers Name Role Phone Palmira Lim MD Primary Care Provider Encounter Details Date Type Department Care Team Description 03/30/2001 Office Visit [facility] Palmira Lim ROUTINE CHILD HEALTH EXAM; [address] Eliezer MD VACCINE FOR DTP; [place] [address] VACCINE DIS COMBINATIONS NEC; [phone] [place], [place] VACCINE GIDEON [id number]; [address] VACCINE FOR VARICELLA Social History Tobacco Use Types Packs/Day Years Used Date Smoking Tobacco: Never Assessed Sex Assigned at Date Recorded Female 09/14/2020 7:23 AM CDT documented as of this encounter Plan of Treatment Not on filedocumented as of this encounter Visit Diagnoses Diagnosis Routine or child health check Need for DTP vaccine Need for prophylactic vaccination with c ombined rsstqpfxrx-sfiozcf-jhpflzalr (DTP) vaccine Need for prophylactic vaccination and in oculation against other combinations of diseases Need for prophylactic vaccination with m wmyzpi-ormat-ydlmjsu (MMR) vaccine Need for prophylactic vaccination and in oculation against varicella documented in this encounter Care Teams Flame Annealing Machine Setter Relationship Specialty Start Date End Date Palmira Lim MD PCP - General 99 12/07/[address] [place] [address] documented as of this encounter
--- OUTSIDE RECORDS SUMMARY | 2021-12-12 09:59 | XMS_ITS | Encounter Summary ---
:1999 Author Organization [email or web address] Address [address] [place] [address] Care Team Providers Name Role Phone Palmira Lim MD Primary Care Provider Encounter Details Date Type Department Care Team Description 07/16/2005 Orders Only External to [facility], [facility] [address] [place] [address] (Wo rk) Social History Tobacco Use Types Packs/Day Years Used Date Smoking Tobacco: Passive Smoke Exposure - Never Smoker Comments: mom smokes Alcohol Use Standard Drinks/Week Comments Not Asked 0 (1 standard drink = 0.6 oz pure alcoho l) Sex Assigned at Date Recorded Female 09/14/2020 7:23 AM CDT documented as of this encounter Procedure Notes [facility] - 07/16/2005 12:00 AM CDTAssociated Order(s): OUTSIDE [...] available. Ordered by an unspecified provider. Transcriptions [facility] - 07/16/2005 12:00 AM CDT Physician Unknown DUMMY/OTHER/AR documented in this encounter Visit Diagnoses Not on filedocumented in this encounter Care Teams Intermediate Teacher Relationship Specialty Start Date End Date Palmira Lim MD PCP - General 05/08/06 [address], [place] [address] documented as of this encounter
--- OUTSIDE RECORDS SUMMARY | 2021-12-12 09:59 | XMS_ITS | Encounter Summary ---
:1999 Author Organization [employer] Address [address] [place] [address] Care Team Providers Name Role Phone Diony [...] filedocumented in this encounter Care Teams Net Developer Software Engineer C Relationship Specialty Start Date End Date Diony Luque MD PCP - General 10/21/[address] [place] [address] documented as of this encounter
--- OUTSIDE RECORDS SUMMARY | 2021-12-12 09:59 | XMS_ITS | Encounter Summary ---
:1999 Author Organization [employer] Address [address] [place] [address] Care Team Providers Name Role Phone Aislinn Arzate MD Primary Care Provider Reason for Visit Reason Comments RASH Encounter Details Date Type Department Care Team Description 12/28/2001 Office Visit [facility] Aislinn Arzate MD OTHER ATOPIC [address] D[place]MATITIS ([place] [address] [place], [place] Dx) [phone] [id number] Social History Tobacco Use Types Packs/Day Years Used Date Smoking Tobacco: Never Assessed Sex Assigned at Date Recorded Female 09/14/2020 7:23 AM CDT documented as of this encounter Last Filed Vital Signs Vital Sign Reading Time Taken Comments Blood Pressure - - Pulse - - Temperature 37.4 ??C (99.3 ??F) 12/28/2001 9:20 AM SUPERINTENDENT CAR CONSTRUCTION Respiratory Rate - - Oxygen Saturation - - Inhaled Oxygen Concentration - - Weight 11.8 kg (26 lb) 12/28/2001 9:20 AM SUPERINTENDENT CAR CONSTRUCTION Height - - Body Mass Index - - documented in this encounter Progress Notes 12/28/2001 9:20 AM SUPERINTENDENT CAR CONSTRUCTION SUBJECTIVE: Itchy rash on legs and buttocks [...] Primary documented in this encounter Care Teams Transcribing Operator Head Relationship Specialty Start Date End Date Aislinn Arzate MD PCP - General 12/08/01 10/20/04 [address] [place], [place] [id number] documented as of this encounter
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
--- OUTSIDE RECORDS SUMMARY | 2021-12-12 09:59 | XMS_ITS | Encounter Summary ---
:1999 Author Organization [employer] Address [address] [place] [address] Care Team Providers Name Role Phone Palmira Lim MD Primary Care Provider Encounter Details Date Type Department Care Team Description 07/19/2008 Notes/Orders [facility] Katya Kunz MD ADHD (Primary Dx) Psychiatry [address], [place] [address] [address] [place], [place] [id number] [phone] Social History Tobacco Use Types Packs/Day Years [...] documented in this encounter Care Teams Gas Plant Dispatcher Relationship Specialty Start Date End Date Palmira Lim MD PCP - General 05/08/[address] [place], [place] [address] documented as of this encounter
--- OUTSIDE RECORDS SUMMARY | 2021-12-12 09:59 | XMS_ITS | Encounter Summary ---
:1999 Author Organization [employer] Address [address] [place] [address] Care Team Providers Name Role Phone Aislinn Arzate MD Primary Care Provider Reason for Visit Reason Comments LICE,HEAD Encounter Details Date Type Department Care Team Description 02/13/2002 Telephone Careline June Salazar RN LICE,HEAD [address] [place], [place] [address] [address] [facility] [phone] [place] [address] Social History Tobacco Use Types Packs/Day Years Used Date Smoking Tobacco: Never Assessed Sex Assigned at Date Recorded Female 09/14/2020 7:23 AM CDT documented as of this encounter Nursing Notes 02/13/2002 11:59 PM SEWING PATTERN LAYOUT TECHNICIAN >> JUNE SALAZAR Sun Feb 13, 2002 10:52 AM >> COMPLETED ON ThuFeb 13, 2002 10:54 AM >> CALL RECEIVED. Contact: >> [phone] RECEIVED. Contact: TRIAGE REFERENCE: LICE - HEAD [...] been caused by too, frequent treatment ., [place] oil or mayonaise can be used instead [...] for coverage of cost of the medication. police detention attendant paged @ 10:[address] Hastings for Nix Cream Rinse-use as directed, may refill x 1, called to [phone] documented in this encounter Plan of Treatment Not on filedocumented as of this encounter Visit Diagnoses Not on filedocumented in this encounter Care Teams Swimming Pool Service Technician Relationship Specialty Start Date End Date Aislinn Arzate MD PCP - General 12/08/01 10/20/04 [address] [place] [address] documented as of this encounter
--- OUTSIDE RECORDS SUMMARY | 2021-12-12 09:59 | XMS_ITS | Encounter Summary ---
:1999 Author Organization [employer] Address [address] [place] [address] Care Team Providers Name Role Phone Diony Luque MD Primary Care Provider Reason for Visit Reason Comments SHOT,FLU Encounter Details Date Type Department Care Team Description 04/16/2006 Office Visit [facility] Need for Pr ophylactic Department Vaccination and [address] [place] [address] Influenza (Primary Dx) [phone] Social History Tobacco Use Types Packs/Day Years [...] of bleeding problem: no History of [place]illian [place] within 6 weeks of receiving an influenza immunization: no (If YES to any of the above, consult MD) OBJECTIVE: Temp (only if ill today): no ASSESSMENT: Eligible for flu vaccine today: YES PLAN: Administer vaccine: Education: discussed possible side effects and provided health education materials. Iliana Bradshaw CMA 04/16/2006 4:49 PM HICS MANAGER documented in this encounter Plan of Treatment Not on filedocumented as of this encounter Visit Diagnoses Diagnosis Need for prophylactic vaccination and in oculation against influenza - Primary documented in this encounter Care Teams Distribution Driver Relationship Specialty Start Date End Date Diony Luque MD PCP - General 10/21/04 05/07/06 [address] [place] [address] documented as of this encounter
--- OUTSIDE RECORDS SUMMARY | 2021-12-12 10:00 | XMS_ITS | Encounter Summary ---
:1999 Author Organization [facility] Address [address] [place] [address] Care Team Providers Name Role Phone Palmira Lim MD Primary Care Provider Reason for Visit Reason Comments FUSSY VIA INTERFACE Encounter Details Date Type Department Care Team Description 1999 [facility] OTITIS MEDIA NOS [address] [place], [place] [id number] Social History Tobacco Use Types Packs/Day Years [...] media documented in this encounter Care Teams Clinical Resource Nurse Relationship Specialty Start Date End Date Palmira Lim MD PCP - General 99 12/07/[address] [place] [address] documented as of this encounter
--- OUTSIDE RECORDS SUMMARY | 2021-12-12 10:00 | XMS_ITS | Encounter Summary ---
:1999 Author Organization [facility] Address [address] [place] [address] Care Team Providers Name Role Phone Palmira Lim MD Primary Care Provider Encounter Details Date Type Department Care Team Description 05/12/2000 Orders Only [facility] [address] [place], [place] [phone] Social History Tobacco Use Types Packs/Day Years Used Date Smoking Tobacco: Never Assessed Sex Assigned at Date Recorded Female 09/14/2020 7:23 AM CDT documented as of this encounter Plan of Treatment Not on filedocumented as of this encounter Procedures Procedure Name Priority Date/Time Associated Diagnosis Comme nts COMPLETE BLOOD Waiting 05/12/2000 10:19 PM Result s for this COUNT-NO DIFF CITY ENGINEER procedure are in the results section. BODY FLUID CULTURE Routine 05/12/2000 10:19 PM Re sults for this CITY ENGINEER procedure are i n the results section. documented in this encounter Results COMMENTS (05/12/2000 10:19 PM CITY ENGINEER) [facility] Method Time Signature Comments Protime and PTT [facility] Cancelled by provider Specimen Anatomical Collection Method Collection Time Receive d Time (Source) Location / / Volume Laterality 05/12/2000 10:19 05/12/2000 PM CITY ENGINEER 10:20 PM CITY ENGINEER Full Range Spucc LAB_1 Performing Organization Address City/State/ZIP Code Phon e Number [facility] [phone] [facility] [address] [place] [address] HEMOGRAM/PLTS (05/12/2000 10:19 PM CITY ENGINEER) P athologist Signature WBC 15.3 5.0 - 19.[address] [facility] k/ul RBC 4.55 3.0 - 5.4 [facility] M/ul Hemoglobin 12.5 10.0 - 18.0 [facility] g/dl HCT 36.5 31.0 - 55.0 [facility] % MCV 80.4 77 - 104 fl [facility] MCH 27.4 26 - 34 pg [facility] MCHC 34.2 32 - 36 % [facility] RDW 14.9 11.5 - 16.0 [facility] % Platelets 430 150 - 450 [facility] k/ul Specimen Anatomical Collection Method Collection Time Receive d Time (Source) Location / / Volume Laterality 05/12/2000 10:19 05/12/2000 PM CITY ENGINEER 10:20 PM CITY ENGINEER Full Range Spucc LAB_[address] [facility] Phon e Number [facility] [phone] [address] documented in this encounter Visit Diagnoses Not on filedocumented in this encounter Care Teams Sap Bw Developer Relationship Specialty Start Date End Date Palmira Lim MD PCP - General 05/08/[address] [facility] [place], [place] [address] documented as of this encounter
--- OUTSIDE RECORDS SUMMARY | 2021-12-12 10:00 | XMS_ITS | Encounter Summary ---
:1999 Author Organization [email or web address] Address [address] [place] [address] Care Team Providers Name Role Phone Palmira [...] on filedocumented in this encounter Care Teams Pulp Mill Supervisor Relationship Specialty Start Date End Date Palmira Lim MD PCP - General 99 12/07/[address] [address] documented as of this encounter
--- OUTSIDE RECORDS SUMMARY | 2021-12-12 10:00 | XMS_ITS | Encounter Summary ---
:1999 Author Organization [facility] Address [address] [place] [address] Care Team Providers Name Role Phone Palmira Lim MD Primary Care Provider Encounter Details Date Type Department Care Team Description 1999 Orders Only [facility] Palmira Lim MD [address] [place], [place] [address] [place], [place] [phone] (Wo rk) Social History Tobacco Use Types [...] Component Value Ref Test Analysis Performed At [facility] Range Method Time Signature Phenylketonuria See Separate [facility] Report Specimen Anatomical Collection Method Collection Time Receive d Time (Source) Location / / Volume Laterality 1999 6:02 PM 07/05/200 0 6:03 CDT PM CDT Palmira Lim MD LAB_1 Performing Organization Address City/State/ZIP Code Phon e Number [facility] [phone] [address] documented in this encounter Visit Diagnoses Not on filedocumented in this encounter Care Teams Chemist Instrumentation Relationship Specialty Start Date End Date Palmira Lim MD PCP - General 05/08/06 [address] [place] [address] documented as of this encounter
--- OUTSIDE RECORDS SUMMARY | 2021-12-12 10:00 | XMS_ITS | Encounter Summary ---
:1999 Author Organization [employer] Address [address] [place] [address] Care Team Providers Name Role Phone Palmira Lim MD Primary Care Provider Reason for Visit Reason Comments DEBORAH Encounter Details Date Type Department Care Team Description 1999 Telephone Aurora Raphael RN FUSSY [address] AFTER HOURS CARE - [place], [place] [address] CARELINE [phone] [place], [place] [phone] Social History Tobacco Use Types Packs/Day Years Used Date Smoking Tobacco: Never Assessed Sex Assigned at Date Recorded Female 09/14/2020 7:23 AM CDT documented as of this encounter Nursing Notes 1999 11:59 PM CDT >> AURORA DE LEON Mon 1999 3:38 PM >> CALL RECEIVED. Contact: [phone] Congested and has a cough. Has mattery eyes. Mom suspects an ear infection. SPACC-peds documented in this encounter Plan of Treatment Not on filedocumented as of this encounter Visit Diagnoses Not on filedocumented in this encounter Care Teams Rn Procedure Relationship Specialty Start Date End Date Palmira Lim MD PCP - General 99 12/07/[address] [place] [address] documented as of this encounter
--- OUTSIDE RECORDS SUMMARY | 2021-12-12 10:00 | XMS_ITS | Encounter Summary ---
:1999 Author Organization [employer] Address [address] [place] [address] Care Team Providers Name Role Phone Palmira Lim MD Primary Care Provider Reason for Visit Reason Comments QUESTIONS, GENERAL Encounter Details Date Type Department Care Team Description 1999 Telephone Careline Linda Obando QUESTIONS, GENERAL; ([address] A, RN day old, exp to [place], [place] [address] CARELINE whooping cough) [phone] [place] [address] Social History Tobacco Use Types Packs/Day [...] told mom she needs to f/u with varying exceptionalities teacher tomorrow. - Kay Nieves Started and completed on ThuSep 11, 1999 9:07 PM CALL RECEIVED. Contact: Twila Arzate [phone] - Linda Obando Started and completed on ThuSep 11, 1999 8:54 PM documented in this encounter Plan of Treatment Not on filedocumented as of this encounter Visit Diagnoses Not on filedocumented in this encounter Care Teams Magnetic Grinder Operator Relationship Specialty Start Date End Date Palmira Lim MD PCP - General 99 12/07/[address] [place] [address] documented as of this encounter
--- OUTSIDE RECORDS SUMMARY | 2021-12-12 10:00 | XMS_ITS | Encounter Summary ---
:1999 Author Organization [employer] Address [address] [place] [address] Care Team Providers Name Role Phone Palmira Lim MD Primary Care Provider Reason for Visit Reason Comments ROUTINE HEALTH MAINTENANCE VIA INTERFACE Encounter Details Date Type Department Care Team Description 1999 Office Visit [facility] Palmira Lim ROUTINE CHILD HEALTH EXAM; [address] Eliezer MD VACCINE FOR DTP; [place] [address] VACCINE DIS COMBINATIONS NEC; [phone] [place], [place] VACCINE FOR IPV (POLIOMYELITIS); [address] VACCINE FOR STREP PNEUMONIAE Social History Tobacco Use Types Packs/Day Years Used Date Smoking Tobacco: Never Assessed Sex Assigned at Date Recorded Female 09/14/2020 7:23 AM CDT documented as of this encounter Plan of Treatment Not on filedocumented as of this encounter Visit Diagnoses Diagnosis Routine infant or child health check Need for DTP vaccine Need for prophylactic vaccination with c ombined lvrxpnjuds-xinexnq-ritsojdzn (DTP) vaccine Need for prophylactic vaccination and in oculation against other combinations of diseases Need for prophylactic vaccination and in oculation against poliomyelitis Need for prophylactic vaccination agains t Streptococcus pneumoniae (pneumococcus) Need for prophylactic vaccination agains t streptococcus pneumoniae (pneumococcus) documented in this encounter Care Teams Clinical Account Specialist Relationship Specialty Start Date End Date Palmira Lim MD PCP - General 99 12/07/01 [address] [place] [address] documented as of this encounter
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
--- OUTSIDE RECORDS SUMMARY | 2021-12-12 10:00 | XMS_ITS | Encounter Summary ---
:1999 Author Organization [facility] Address [address] [place] [address] Care Team Providers Name Role Phone Palmira Lim MD Primary Care Provider Encounter Details Date Type Department Care Team Description 1999 Other Services INPATIENT SERVICES - Mendoza Borrego MD [address] [address] Social History Tobacco Use Types Packs/Day Years Used Date Smoking Tobacco: Never Assessed Sex Assigned at Date Recorded Female 09/14/2020 7:23 AM CDT documented as of this encounter Plan of Treatment Not on filedocumented as of this encounter Visit Diagnoses Diagnosis Single liveborn, born in hospital, [facility] ere without mention of delivery documented in this encounter Care Teams Crystalizer Relationship Specialty Start Date End Date Palmira Lim MD PCP - General 99 12/07/[address] [place], [place] [address] documented as of this encounter
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
--- OUTSIDE RECORDS SUMMARY | 2021-12-12 10:00 | XMS_ITS | Encounter Summary ---
:1999 Author Organization [facility] Address [address] [place] [address] Care Team Providers Name Role Phone Palmira Lim MD Primary Care Provider Encounter Details Date Type Department Care Team Description 1999 Other Services INPATIENT SERVICES - Jazmine Bello RN PEDIAT [phone] [place] [address] Social History Tobacco Use Types Packs/Day Years Used Date Smoking Tobacco: Never Assessed Sex Assigned at Date Recorded Female 09/14/2020 7:23 AM CDT documented as of this encounter Plan of Treatment Not on filedocumented as of this encounter Visit Diagnoses Diagnosis Single liveborn, born in hospital, [facility] ere without mention of delivery documented in this encounter Care Teams Frame Opener Relationship Specialty Start Date End Date Palmira Lim MD PCP - General 99 12/07/[address] [place], [place] [address] documented as of this encounter
--- OUTSIDE RECORDS SUMMARY | 2021-12-12 10:00 | XMS_ITS | Encounter Summary ---
:2000 Author Organization [employer] Address [address] [place] [address] Care Team Providers Name Role Phone Palmira Lim MD Primary Care Provider Reason for Visit Reason Comments ROUTINE HEALTH MAINTENANCE VIA INTERFACE Encounter Details Date Type Department Care Team Description 2000 Office Visit [facility] Palmira Lim ROUTINE CHILD HEALTH EXAM; [address] Annia MD FAMILY CIRCUMSTANCE NOS; [place] [address] [place] [phone] [place], [place] [address] Social History Tobacco Use Types Packs/Day Years Used Date Smoking Tobacco: Never Assessed Sex Assigned at Date Recorded Female 09/14/2020 7:23 AM CDT documented as of this encounter Plan of Treatment Not on filedocumented as of this encounter Visit Diagnoses Diagnosis Routine infant or child health check Unspecified family circumstance Candidiasis of mouth documented in this encounter Care Teams Ui Software Developer Relationship Specialty Start Date End Date Palmira Lim MD PCP - General 99 12/07/[address] [place], [place] [id number] documented as of this encounter
--- OUTSIDE RECORDS SUMMARY | 2021-12-12 10:00 | XMS_ITS | Encounter Summary ---
:2000 Author Organization [employer] Address [address] [place] [address] Care Team Providers Name Role Phone Palmira Lim MD Primary Care Provider Reason for Visit Reason Comments ROUTINE HEALTH MAINTENANCE VIA INTERFACE Encounter Details Date Type Department Care Team Description 02/04/2000 Office Visit [facility] Palmira Lim ROUTINE CHILD HEALTH EXAM; [address] Eliezer MD OTHER ATOPIC DERMATITIS; [place] [address] VACCINE FOR DTP; [phone] [place], [place] VACCINE DIS COMBINATIONS NEC; [address] VACCINE FOR IPV (POLIOMYELITIS); [phone] VACCINE FOR STR EP PNEUMONIAE (Work) Social [...] Need for prophylactic vaccination with c ombined dhndnwybfn-eegcgbm-nhkyqniec (DTP) vaccine Need for prophylactic vaccination and in oculation against other combinations of diseases Need for prophylactic vaccination and in oculation against poliomyelitis Need for prophylactic vaccination agains t Streptococcus pneumoniae (pneumococcus) Need for prophylactic vaccination agains t streptococcus pneumoniae (pneumococcus) documented in this encounter Care Teams [employer] Operations Duty Manager Relationship Specialty Start Date End Date Palmira Lim MD PCP - General 99 12/07/[address] [place] [id number] documented as of this encounter
--- OUTSIDE RECORDS SUMMARY | 2021-12-12 10:00 | XMS_ITS | Encounter Summary ---
:2000 Author Organization [employer] Address [address] [place] [address] Care Team Providers Name Role Phone Palmira [...] Dakota Velázquez, Provider - 2000 12:00 AM ELECTRIC STOVE INSTALLER documented in this encounter Plan of Treatment Not on filedocumented as of this encounter Visit Diagnoses Not on filedocumented in this encounter Care Teams Commercial Solar Sales Consultant Relationship Specialty Start Date End Date Palmira Lim MD PCP - General 05/08/[address] [place], [place] [address] documented as of this encounter
== END 2021-12-08 08:49 | disposition home or self-care (01) ==
LOC: AMB 12-12 09:45
PROVIDERS: Visit Provider Emergency Medicine Emergency Medical Services
DX: R11.0 Nausea (principal); I10 Essential (primary) hypertension; R53.1 Weakness
CPT/HCPCS: A0425; A0427

== ENCOUNTER 2021-12-08 09:15 | Inpatient (IN) | payer BC, MEDICAID, SELFPAY ==
[2021-12-08] VITALS (29 sets, daily range): BP systolic 98–132; BP diastolic 56–86; PULSE 75–121; RESP 18–20; TEMP 36.8–36.9; O2SAT 95–100; BMI 23.9; BMI 23.6
--- NOTE | 2021-12-08 10:17 | ED_ITS ---
HPI - General Adult General Chief complaint: Diabetic Related Problem Stated complaint: DKA Time Seen by Provider: 12/08/21 09:58 History of Present Illness HPI narrative: 21-year-old young woman accompanied by her mom with concern of weakness and uncontrolled blood sugar. Does have a history of insulin-dependent diabetes type 1 and DKA. It's been a couple of days since she has taken her insulin. Last night did begin vomiting. Apparently continued today. Has not had a fever but mom says she feels warm. She called for help with mom this morning and when Mom had trouble getting her pants on thought she should ask for EMS assistance. Does smoke marijuana daily. No alcohol. No particular exposures. No abdominal pain. This feels too weak to really assist with exam. She says she feels more out of it than when she got here. No rashes noted. 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 Has not yet had blood sugars in control to the degree that where provider has felt comfortable prescribing insulin pump. There is also a history of suicidal ideation. Apparently is also not taking thyroid medications. Related Data Home Medications Medication Instructions Recorded Confirmed insulin aspart U-100 100 unit/mL 1 sliding scale dose subcut TIDWM 11/21/21 12/08/21 (3 mL) subcutaneous pen (Novolog Flexpen U-100 Insulin aspart) insulin glargine 100 unit/mL (3 15 - 34 unit subcut BID 11/21/21 12/08/21 mL) subcutaneous pen (Lantus Solostar U-100 Insulin) levothyroxine 50 mcg tablet 50 mcg PO DAILY 11/21/21 12/08/21 pen needle, diabetic 31 gauge x 11/21/21 12/08/21 1/4 (UltiCare Pen Needle) blood-glucose sensor (Dexcom G6 12/08/21 12/08/21 Sensor device) blood-glucose transmitter (Dexcom 12/08/21 12/08/21 G6 Transmitter device) Previous Rx's Medication Instructions Recorded dolutegravir 50 mg tablet (Tivicay) 50 mg PO DAILY #30 tabs 11/21/21 emtricitabine 200 mg-tenofovir 1 tab PO DAILY #30 tabs 11/21/21 disoproxil fumarate 300 mg tablet (Truvada) Allergies Allergy/AdvReac Type Severity Reaction Status Date / Time shellfish derived Allergy Verified 12/08/21 09:24 Review of Systems Status of ROS: Reports: 10 or more systems reviewed and unremarkable except as noted in History and below [facility] Medical History (Updated 12/09/21 @ 13:16 by Albert Hemphill MD) ADHD (attention deficit hyperactivity disorder) Adjustment disorder with depressed mood Diabetes mellitus, insulin dependent (IDDM), uncontrolled Hypothyroidism Intentional overdose of insulin Noncompliance Suicidal behavior Surgical History No significant past surgical history Social History Highest level of school completed/degree received: Associate degree: occupational, technical, vocational program Smoking Status: Current every day smoker Do you use any of these nicotine containing products: E-Cigarettes and Vaping Products Second hand tobacco smoke exposure: No How often do you have a drink containing alcohol: monthly or less Alcohol type: hard liquor Alcohol type details: mixed vodka How often do you have six or more drinks on one occasion: Never AUDIT-C Alcohol total score: 1 Non-prescribed substance use: marijuana (any form) Caffeine: No service: No Exam Narrative: Exam Narrative: Strong smell of ketones in the room. Looks quite tired. Able to sit with assistance maintains independently. Carefully groomed with makeup. CN 2-12 intact. Oropharynx is little dry. Yellowish brown staining over tongue. Neck is supple without LA. Lungs are clear. Is not tachypneic Abdomen normoactive bowel sounds soft and nontender. Skin is warm dry without rash. Bruises over knees and upper shins consistent with her dancing she says. Various line tattoos. Cardiovascular elevated to tachycardic, regular rhythm. Moving all extremities normally o/t generally weak. no edema. Const: Vital Signs, click to edit/add: Vital Signs - 24 hr 12/08/21 13:30 12/08/21 13:32 12/08/21 14:01 Temperature Pulse Rate 101 H 103 H Pulse Rate [Left P ulse Oximeter] Respiratory Rate Blood Pressure 98/70 Blood Pressure [Ri ght Arm] Pulse Oximetry 100 100 99 Oxygen Delivery Me thod Fraction of Inspir ed Oxygen 12/08/21 14:01 12/08/21 14:04 12/08/21 14:07 Temperature 98.4 F 98.4 F Pulse Rate Pulse Rate [Left P ulse Oximeter] Respiratory Rate 20 20 Blood Pressure Blood Pressure [Ri ght Arm] 118/86 118/86 Pulse Oximetry 99 99 99 Oxygen Delivery Me thod Room Air Room Air Room Air Fraction of Inspir ed Oxygen 0.21 0.21 12/08/21 14:17 12/08/21 14:21 12/08/21 14:21 Temperature 98.4 F Pulse Rate Pulse Rate [Left P ulse Oximeter] Respiratory Rate 20 20 Blood Pressure Blood Pressure [Ri ght Arm] 118/86 Pulse Oximetry 99 99 98 Oxygen Delivery Me thod Room Air Room Air Room Air Fraction of Inspir ed Oxygen 0.21 0.21 12/08/21 14:02 12/08/21 14:54 12/08/21 15:20 Temperature Pulse Rate 92 Pulse Rate [Left P ulse Oximeter] 95 Respiratory Rate 20 Blood Pressure Blood Pressure [Ri ght Arm] Pulse Oximetry 100 Oxygen Delivery Me thod Room Air Fraction of Inspir ed Oxygen 12/08/21 19:00 12/08/21 19:00 12/08/21 21:18 Temperature 98.2 F Pulse Rate 85 Pulse Rate [Left P ulse Oximeter] 100 100 Respiratory Rate 20 20 Blood Pressure Blood Pressure [Ri ght Arm] 117/68 Pulse Oximetry 100 Oxygen Delivery Me thod Room Air Fraction of Inspir ed Oxygen 12/08/21 22:05 12/08/21 23:00 12/08/21 23:00 Temperature 98.4 F Pulse Rate Pulse Rate [Left P ulse Oximeter] 75 75 Respiratory Rate 20 18 20 Blood Pressure Blood Pressure [Ri ght Arm] 106/56 L Pulse Oximetry 100 95 Oxygen Delivery Me thod Room Air Room Air Fraction of Inspir ed Oxygen 12/09/21 00:51 12/09/21 02:14 12/09/21 06:00 Temperature 98.4 F Pulse Rate 75 Pulse Rate [Left P ulse Oximeter] 75 Respiratory Rate 18 Blood Pressure Blood Pressure [Ri ght Arm] 103/77 Pulse Oximetry 100 Oxygen Delivery Me thod Room Air Room Air Fraction of Inspir ed Oxygen 12/09/21 07:00 12/09/21 08:00 Temperature 98.4 F Pulse Rate 74 Pulse Rate [Left P ulse Oximeter] 79 Respiratory Rate 16 Blood Pressure Blood Pressure [Ri ght Arm] 106/64 Pulse Oximetry 98 Oxygen Delivery Me thod Room Air Fraction of Inspir ed Oxygen Documenting provider has reviewed patient's vital signs: yes Course Reevaluation(s) Reevaluation #1: improved energy with spontaneous eye opening and longer responses to questions. resolved nausea Reevaluation #2: blood sugars improving slowly as desired Consultations Consultation #1: discussed case and cares with our hospitalist. to be admitted Vital Signs Vital signs: Initial Vital Signs Temperature 98.2 F 12/08/21 09:24 Temperature Source Temporal Artery Scan 12/08/21 09:24 Pulse Rate 100 12/08/21 09:24 Pulse Rhythm 12/08/21 09:24 Respiratory Rate 18 12/08/21 09:24 Blood Pressure 132/84 12/08/21 09:24 Blood Pressure Mean 100 12/08/21 09:24 Blood Pressure Position Supine 12/08/21 09:24 Pulse Oximetry 99 12/08/21 09:24 Oxygen Delivery Method 12/08/21 09:24 Vital Signs Temperature 98.2 F 12/08/21 09:24 Pulse Rate 100 12/08/21 09:24 Respiratory Rate 18 12/08/21 09:24 Blood Pressure 132/84 12/08/21 09:24 Pulse Oximetry 99 12/08/21 09:24 Oxygen Delivery Method 12/08/21 09:24 Temperature 97.6 F 12/09/21 11:00 Pulse Rate 89 12/09/21 11:00 Respiratory Rate 16 12/09/21 11:00 Blood Pressure 101/67 12/09/21 11:00 Pulse Oximetry 99 12/09/21 11:00 Oxygen Delivery Method 12/09/21 11:00 Fraction of Inspired Oxygen 0.21 12/08/21 14:21 Medical Decision Making MDM Narrative Medical decision making narrative: initiating fluid resuscitation with NS and initial bolus of insulin. anticipate transition to insulin drip and LR. pH of 7 have contacted hospitalist early anticipating admission Medical Records Medical records reviewed: Yes I reviewed the patient's medical records Lab Data Lab results reviewed: Yes I reviewed the patient's lab results Labs: Lab Results 12/08/21 12/08/21 12/08/21 Range/Units 09:40 09:40 09:40 WBC 22.90 H (4.50-11.00) K/uL RBC 4.98 (4.00-5.20) m/uL Hgb 14.4 (12.0-16.0) gm/dL Hct 43.1 (33.0-51.0) % MCV 87 (80-100) fL MCH 29 (26-34) pg MCHC 33 (32-36) gm/dL RDW Coeff of Shelia 13.1 (11.5-15.5) % Plt Count 379 (140-440) K/uL Neut % (Auto) 89.6 H (42.0-72.0) % Lymph % (Auto) 7.8 L (20-44) % Ransom % (Auto) 2.0 (0.0-11.0) % Eos % (Auto) 0.1 (0.0-7.0) % Baso % (Auto) 0.1 (0.0-3.0) % Neut # (Auto) 20.50 H (1.7-7.0) K/uL Lymph # (Auto) 1.80 (0.90-2.90) K/uL Ransom # (Auto) 0.50 (0.00-0.90) K/UL Eos # (Auto) 0.00 (0.00-0.50) K/uL Baso # (Auto) 0.00 (0.00-0.30) K/uL Abs Immat Gran (auto) 0.09 (0.00-0.30) K/uL ABG pH (7.35-7.45) ABG pCO2 (35-45) mmHG ABG pO2 (80-105) mmHG ABG HCO3 (21-28) mmol/L ABG Total CO2 (21-30) mmol/l ABG O2 Saturation (92-100) % ABG Base Excess (-3.0-3.0) mmol/L VBG pH (7.32-7.43) VBG pCO2 (40-50) mmHG VBG pO2 (25-47) mmHG VBG HCO3 (21-28) mmol/L Sodium 137 (135-149) mmol/L Potassium 5.2 H (3.6-5.1) mmol/L Chloride 100 (96-114) mmol/L Carbon Dioxide < 5 L* (20-32) mmol/L BUN 16 (5-24) mg/dL Creatinine 0.8 (0.5-1.5) mg/dL Estimated Creat Clear 91.25 Estimated GFR 107 ml/min Glucose 629 H* (60-115) mg/dL Hemoglobin A1c (0-5.6) % Lactate (0.5-1.9) mmol/L Venous Lactic Acid (Serial Order) Calcium 9.0 (8.4-10.6) mg/dL Magnesium 2.1 (1.5-2.6) mg/dL Total Bilirubin 0.5 (0.1-1.5) mg/dL Direct Bilirubin 0.3 (0.0-0.5) mg/dL AST 27 (12-35) U/L ALT 24 (4-35) U/L Alkaline Phosphatase 133 (40-150) U/L C-Reactive Protein < 0.5 L (0.5-1.0) mg/dL Total Protein 8.9 H (6.0-8.3) g/dL Albumin 5.5 H (3.3-5.0) g/dL Lipase 34 (23-300) U/L TSH (0.270-4.20) uIU/mL Free T4 (0.70-1.85) ng/dL HCG, Qual Negative (Negative) Urine Color (Yellow) Urine Appearance (Clear) Urine pH (5.0-8.5) Ur Specific [place] (1.000-1.030) Urine Protein (Negative) Urine Glucose (UA) (Negative) Urine Ketones (Negative) Urine Blood (Negative) Urine Nitrite (Negative) Urine Bilirubin (Negative) Urine Urobilinogen (0.2-1.0) Ur Leukocyte Esterase (Negative) Urine RBC (0-2) Urine WBC (0-5) Ur Squamous Epith Cells (None-Few) Urine Bacteria (None) Urine Opiates Screen (Negative) Ur Oxycodone Screen (Negative) Urine Methadone Screen (Negative) Ur Propoxyphene Screen (Negative) Ur Barbiturates Screen (Negative) U Tricyclic Antidepress (Negative) Ur Phencyclidine Scrn (Negative) Ur Amphetamines Screen (Negative) U Methamphetamines Scrn (Negative) U Benzodiazepines Scrn (Negative) Urine Cocaine Screen (Negative) U Marijuana (THC) Screen (Negative) Ur Drug Screen Comment SARS-CoV-2 (PCR) (Negative) HIV 1&2 Ab/P24 Ag 4thGn (Negative) POC Glucose (60-115) mg/dl 12/08/21 12/08/21 12/08/21 Range/Units 09:40 09:40 09:40 WBC (4.50-11.00) K/uL RBC (4.00-5.20) m/uL Hgb (12.0-16.0) gm/dL Hct (33.0-51.0) % MCV (80-100) fL MCH (26-34) pg MCHC (32-36) gm/dL RDW Coeff of Shelia (11.5-15.5) % Plt Count (140-440) K/uL Neut % (Auto) (42.0-72.0) % Lymph % (Auto) (20-44) % Ransom % (Auto) (0.0-11.0) % Eos % (Auto) (0.0-7.0) % Baso % (Auto) (0.0-3.0) % Neut # (Auto) (1.7-7.0) K/uL Lymph # (Auto) (0.90-2.90) K/uL Ransom # (Auto) (0.00-0.90) K/UL Eos # (Auto) (0.00-0.50) K/uL Baso # (Auto) (0.00-0.30) K/uL Abs Immat Gran (auto) (0.00-0.30) K/uL ABG pH (7.35-7.45) ABG pCO2 (35-45) mmHG ABG pO2 (80-105) mmHG ABG HCO3 (21-28) mmol/L ABG Total CO2 (21-30) mmol/l ABG O2 Saturation (92-100) % ABG Base Excess (-3.0-3.0) mmol/L VBG pH 7.004 L* (7.32-7.43) VBG pCO2 25 L (40-50) mmHG VBG pO2 86.0 H (25-47) mmHG VBG HCO3 6 L (21-28) mmol/L Sodium (135-149) mmol/L Potassium (3.6-5.1) mmol/L Chloride (96-114) mmol/L Carbon Dioxide (20-32) mmol/L BUN (5-24) mg/dL Creatinine (0.5-1.5) mg/dL Estimated Creat Clear Estimated GFR ml/min Glucose (60-115) mg/dL Hemoglobin A1c (0-5.6) % Lactate (0.5-1.9) mmol/L Venous Lactic Acid (Serial Order) Calcium (8.4-10.6) mg/dL Magnesium (1.5-2.6) mg/dL Total Bilirubin (0.1-1.5) mg/dL Direct Bilirubin (0.0-0.5) mg/dL AST (12-35) U/L ALT (4-35) U/L Alkaline Phosphatase (40-150) U/L C-Reactive Protein (0.5-1.0) mg/dL Total Protein (6.0-8.3) g/dL Albumin (3.3-5.0) g/dL Lipase (23-300) U/L TSH (0.270-4.20) uIU/mL Free T4 0.75 (0.70-1.85) ng/dL HCG, Qual (Negative) Urine Color (Yellow) Urine Appearance (Clear) Urine pH (5.0-8.5) Ur Specific [place] (1.000-1.030) Urine Protein (Negative) Urine Glucose (UA) (Negative) Urine Ketones (Negative) Urine Blood (Negative) Urine Nitrite (Negative) Urine Bilirubin (Negative) Urine Urobilinogen (0.2-1.0) Ur Leukocyte Esterase (Negative) Urine RBC (0-2) Urine WBC (0-5) Ur Squamous Epith Cells (None-Few) Urine Bacteria (None) Urine Opiates Screen (Negative) Ur Oxycodone Screen (Negative) Urine Methadone Screen (Negative) Ur Propoxyphene Screen (Negative) Ur Barbiturates Screen (Negative) U Tricyclic Antidepress (Negative) Ur Phencyclidine Scrn (Negative) Ur Amphetamines Screen (Negative) U Methamphetamines Scrn (Negative) U Benzodiazepines Scrn (Negative) Urine Cocaine Screen (Negative) U Marijuana (THC) Screen (Negative) Ur Drug Screen Comment SARS-CoV-2 (PCR) (Negative) HIV 1&2 Ab/P24 Ag 4thGn (Negative) POC Glucose (60-115) mg/dl 12/08/21 12/08/21 12/08/21 Range/Units 09:40 09:40 10:11 WBC (4.50-11.00) K/uL RBC (4.00-5.20) m/uL Hgb (12.0-16.0) gm/dL Hct (33.0-51.0) % MCV (80-100) fL MCH (26-34) pg MCHC (32-36) gm/dL RDW Coeff of Shelia (11.5-15.5) % Plt Count (140-440) K/uL Neut % (Auto) (42.0-72.0) % Lymph % (Auto) (20-44) % Ransom % (Auto) (0.0-11.0) % Eos % (Auto) (0.0-7.0) % Baso % (Auto) (0.0-3.0) % Neut # (Auto) (1.7-7.0) K/uL Lymph # (Auto) (0.90-2.90) K/uL Ransom # (Auto) (0.00-0.90) K/UL Eos # (Auto) (0.00-0.50) K/uL Baso # (Auto) (0.00-0.30) K/uL Abs Immat Gran (auto) (0.00-0.30) K/uL ABG pH (7.35-7.45) ABG pCO2 (35-45) mmHG ABG pO2 (80-105) mmHG ABG HCO3 (21-28) mmol/L ABG Total CO2 (21-30) mmol/l ABG O2 Saturation (92-100) % ABG Base Excess (-3.0-3.0) mmol/L VBG pH (7.32-7.43) VBG pCO2 (40-50) mmHG VBG pO2 (25-47) mmHG VBG HCO3 (21-28) mmol/L Sodium (135-149) mmol/L Potassium (3.6-5.1) mmol/L Chloride (96-114) mmol/L Carbon Dioxide (20-32) mmol/L BUN (5-24) mg/dL Creatinine (0.5-1.5) mg/dL Estimated Creat Clear Estimated GFR ml/min Glucose (60-115) mg/dL Hemoglobin A1c > 14.00 H (0-5.6) % Lactate (0.5-1.9) mmol/L Venous Lactic Acid (Serial Order) Calcium (8.4-10.6) mg/dL Magnesium (1.5-2.6) mg/dL Total Bilirubin (0.1-1.5) mg/dL Direct Bilirubin (0.0-0.5) mg/dL AST (12-35) U/L ALT (4-35) U/L Alkaline Phosphatase (40-150) U/L C-Reactive Protein (0.5-1.0) mg/dL Total Protein (6.0-8.3) g/dL Albumin (3.3-5.0) g/dL Lipase (23-300) U/L TSH (0.270-4.20) uIU/mL Free T4 (0.70-1.85) ng/dL HCG, Qual (Negative) Urine Color (Yellow) Urine Appearance (Clear) Urine pH (5.0-8.5) Ur Specific [place] (1.000-1.030) Urine Protein (Negative) Urine Glucose (UA) (Negative) Urine Ketones (Negative) Urine Blood (Negative) Urine Nitrite (Negative) Urine Bilirubin (Negative) Urine Urobilinogen (0.2-1.0) Ur Leukocyte Esterase (Negative) Urine RBC (0-2) Urine WBC (0-5) Ur Squamous Epith Cells (None-Few) Urine Bacteria (None) Urine Opiates Screen (Negative) Ur Oxycodone Screen (Negative) Urine Methadone Screen (Negative) Ur Propoxyphene Screen (Negative) Ur Barbiturates Screen (Negative) U Tricyclic Antidepress (Negative) Ur Phencyclidine Scrn (Negative) Ur Amphetamines Screen (Negative) U Methamphetamines Scrn (Negative) U Benzodiazepines Scrn (Negative) Urine Cocaine Screen (Negative) U Marijuana (THC) Screen (Negative) Ur Drug Screen Comment SARS-CoV-2 (PCR) Negative SARS-CoV-2 (Negative) HIV 1&2 Ab/P24 Ag 4thGn Negative (Negative) POC Glucose (60-115) mg/dl 12/08/21 12/08/21 12/08/21 Range/Units 10:40 11:00 12:10 WBC (4.50-11.00) K/uL RBC (4.00-5.20) m/uL Hgb (12.0-16.0) gm/dL Hct (33.0-51.0) % MCV (80-100) fL MCH (26-34) pg MCHC (32-36) gm/dL RDW Coeff of Shelia (11.5-15.5) % Plt Count (140-440) K/uL Neut % (Auto) (42.0-72.0) % Lymph % (Auto) (20-44) % [place] % (Auto) (0.0-11.0) % Eos % (Auto) (0.0-7.0) % Baso % (Auto) (0.0-3.0) % Neut # (Auto) (1.7-7.0) K/uL Lymph # (Auto) (0.90-2.90) K/uL [place] # (Auto) (0.00-0.90) K/UL Eos # (Auto) (0.00-0.50) K/uL Baso # (Auto) (0.00-0.30) K/uL Abs Immat Gran (auto) (0.00-0.30) K/uL ABG pH 7.00 L* (7.35-7.45) ABG pCO2 (35-45) mmHG ABG pO2 126.0 H (80-105) mmHG ABG HCO3 (21-28) mmol/L ABG Total CO2 (21-30) mmol/l ABG O2 Saturation 98 (92-100) % ABG Base Excess (-3.0-3.0) mmol/L VBG pH (7.32-7.43) VBG pCO2 (40-50) mmHG VBG pO2 (25-47) mmHG VBG HCO3 (21-28) mmol/L Sodium (135-149) mmol/L Potassium (3.6-5.1) mmol/L Chloride (96-114) mmol/L Carbon Dioxide (20-32) mmol/L BUN (5-24) mg/dL Creatinine (0.5-1.5) mg/dL Estimated Creat Clear Estimated GFR ml/min Glucose (60-115) mg/dL Hemoglobin A1c (0-5.6) % Lactate (0.5-1.9) mmol/L Venous Lactic Acid (Serial Order) Calcium (8.4-10.6) mg/dL Magnesium (1.5-2.6) mg/dL Total Bilirubin (0.1-1.5) mg/dL Direct Bilirubin (0.0-0.5) mg/dL AST (12-35) U/L ALT (4-35) U/L Alkaline Phosphatase (40-150) U/L C-Reactive Protein (0.5-1.0) mg/dL Total Protein (6.0-8.3) g/dL Albumin (3.3-5.0) g/dL Lipase (23-300) U/L TSH 61.100 H (0.270-4.20) uIU/mL Free T4 (0.70-1.85) ng/dL HCG, Qual (Negative) Urine Color Yellow (Yellow) Urine Appearance Clear (Clear) Urine pH 5.0 (5.0-8.5) Ur Specific [place] 1.025 (1.000-1.030) Urine Protein 2+ A (Negative) Urine Glucose (UA) 2+ A (Negative) Urine Ketones 4+ A (Negative) Urine Blood Trace-lysed A (Negative) Urine Nitrite Negative (Negative) Urine Bilirubin Negative (Negative) Urine Urobilinogen 0.2 (0.2-1.0) Ur Leukocyte Esterase Negative (Negative) Urine RBC 0-2 (0-2) Urine WBC 0-2 (0-5) Ur Squamous Epith Cells Few (None-Few) Urine Bacteria Few A (None) Urine Opiates Screen (Negative) Ur Oxycodone Screen (Negative) Urine Methadone Screen (Negative) Ur Propoxyphene Screen (Negative) Ur Barbiturates Screen (Negative) U Tricyclic Antidepress (Negative) Ur Phencyclidine Scrn (Negative) Ur Amphetamines Screen (Negative) U Methamphetamines Scrn (Negative) U Benzodiazepines Scrn (Negative) Urine Cocaine Screen (Negative) U Marijuana (THC) Screen (Negative) Ur Drug Screen Comment SARS-CoV-2 (PCR) (Negative) HIV 1&2 Ab/P24 Ag 4thGn (Negative) POC Glucose (60-115) mg/dl 12/08/21 12/08/21 12/08/21 Range/Units 12:10 13:50 14:44 WBC (4.50-11.00) K/uL RBC (4.00-5.20) m/uL Hgb (12.0-16.0) gm/dL Hct (33.0-51.0) % MCV (80-100) fL MCH (26-34) pg MCHC (32-36) gm/dL RDW Coeff of Shelia (11.5-15.5) % Plt Count (140-440) K/uL Neut % (Auto) (42.0-72.0) % Lymph % (Auto) (20-44) % [place] % (Auto) (0.0-11.0) % Eos % (Auto) (0.0-7.0) % Baso % (Auto) (0.0-3.0) % Neut # (Auto) (1.7-7.0) K/uL Lymph # (Auto) (0.90-2.90) K/uL [place] # (Auto) (0.00-0.90) K/UL Eos # (Auto) (0.00-0.50) K/uL Baso # (Auto) (0.00-0.30) K/uL Abs Immat Gran (auto) (0.00-0.30) K/uL ABG pH (7.35-7.45) ABG pCO2 (35-45) mmHG ABG pO2 (80-105) mmHG ABG HCO3 (21-28) mmol/L ABG Total CO2 (21-30) mmol/l ABG O2 Saturation (92-100) % ABG Base Excess (-3.0-3.0) mmol/L VBG pH (7.32-7.43) VBG pCO2 (40-50) mmHG VBG pO2 (25-47) mmHG VBG HCO3 (21-28) mmol/L Sodium 145 (135-149) mmol/L Potassium 4.7 (3.6-5.1) mmol/L Chloride 110 (96-114) mmol/L Carbon Dioxide 7 L* (20-32) mmol/L BUN 14 (5-24) mg/dL Creatinine 0.7 (0.5-1.5) mg/dL Estimated Creat Clear 104.28 Estimated GFR 125 ml/min Glucose 237 H (60-115) mg/dL Hemoglobin A1c (0-5.6) % Lactate (0.5-1.9) mmol/L Venous Lactic Acid (Serial Order) Calcium 9.1 (8.4-10.6) mg/dL Magnesium (1.5-2.6) mg/dL Total Bilirubin (0.1-1.5) mg/dL Direct Bilirubin (0.0-0.5) mg/dL AST (12-35) U/L ALT (4-35) U/L Alkaline Phosphatase (40-150) U/L C-Reactive Protein (0.5-1.0) mg/dL Total Protein (6.0-8.3) g/dL Albumin (3.3-5.0) g/dL Lipase (23-300) U/L TSH (0.270-4.20) uIU/mL Free T4 (0.70-1.85) ng/dL HCG, Qual (Negative) Urine Color (Yellow) Urine Appearance (Clear) Urine pH (5.0-8.5) Ur Specific [place] (1.000-1.030) Urine Protein (Negative) Urine Glucose (UA) (Negative) Urine Ketones (Negative) Urine Blood (Negative) Urine Nitrite (Negative) Urine Bilirubin (Negative) Urine Urobilinogen (0.2-1.0) Ur Leukocyte Esterase (Negative) Urine RBC (0-2) Urine WBC (0-5) Ur Squamous Epith Cells (None-Few) Urine Bacteria (None) Urine Opiates Screen Negative (Negative) Ur Oxycodone Screen Negative (Negative) Urine Methadone Screen Negative (Negative) Ur Propoxyphene Screen Negative (Negative) Ur Barbiturates Screen Negative (Negative) U Tricyclic Antidepress Negative (Negative) Ur Phencyclidine Scrn Negative (Negative) Ur Amphetamines Screen Negative (Negative) U Methamphetamines Scrn Negative (Negative) U Benzodiazepines Scrn Negative (Negative) Urine Cocaine Screen Negative (Negative) U Marijuana (THC) Screen POSITIVE A* (Negative) Ur Drug Screen Comment See Note SARS-CoV-2 (PCR) (Negative) HIV 1&2 Ab/P24 Ag 4thGn (Negative) POC Glucose 213 H (60-115) mg/dl 12/08/21 12/08/21 12/08/21 Range/Units 14:44 17:42 17:42 WBC (4.50-11.00) K/uL RBC (4.00-5.20) m/uL Hgb (12.0-16.0) gm/dL Hct (33.0-51.0) % MCV (80-100) fL MCH (26-34) pg MCHC (32-36) gm/dL RDW Coeff of Shelia (11.5-15.5) % Plt Count (140-440) K/uL Neut % (Auto) (42.0-72.0) % Lymph % (Auto) (20-44) % [place] % (Auto) (0.0-11.0) % Eos % (Auto) (0.0-7.0) % Baso % (Auto) (0.0-3.0) % Neut # (Auto) (1.7-7.0) K/uL Lymph # (Auto) (0.90-2.90) K/uL [place] # (Auto) (0.00-0.90) K/UL Eos # (Auto) (0.00-0.50) K/uL Baso # (Auto) (0.00-0.30) K/uL Abs Immat Gran (auto) (0.00-0.30) K/uL ABG pH (7.35-7.45) ABG pCO2 (35-45) mmHG ABG pO2 (80-105) mmHG ABG HCO3 (21-28) mmol/L ABG Total CO2 (21-30) mmol/l ABG O2 Saturation (92-100) % ABG Base Excess (-3.0-3.0) mmol/L VBG pH 7.125 L* 7.298 L (7.32-7.43) VBG pCO2 29 L 29 L (40-50) mmHG VBG pO2 40.5 63.7 H (25-47) mmHG VBG HCO3 10 L 14 L (21-28) mmol/L Sodium 139 (135-149) mmol/L Potassium 4.5 (3.6-5.1) mmol/L Chloride 111 (96-114) mmol/L Carbon Dioxide 12 L (20-32) mmol/L BUN 12 (5-24) mg/dL Creatinine 0.6 (0.5-1.5) mg/dL Estimated Creat Clear 121.66 Estimated GFR 130 ml/min Glucose 132 H (60-115) mg/dL Hemoglobin A1c (0-5.6) % Lactate 1.9 0.9 (0.5-1.9) mmol/L Venous Lactic Acid (Serial Order) Calcium 8.4 (8.4-10.6) mg/dL Magnesium (1.5-2.6) mg/dL Total Bilirubin (0.1-1.5) mg/dL Direct Bilirubin (0.0-0.5) mg/dL AST (12-35) U/L ALT (4-35) U/L Alkaline Phosphatase (40-150) U/L C-Reactive Protein (0.5-1.0) mg/dL Total Protein (6.0-8.3) g/dL Albumin (3.3-5.0) g/dL Lipase (23-300) U/L TSH (0.270-4.20) uIU/mL Free T4 (0.70-1.85) ng/dL HCG, Qual (Negative) Urine Color (Yellow) Urine Appearance (Clear) Urine pH (5.0-8.5) Ur Specific [place] (1.000-1.030) Urine Protein (Negative) Urine Glucose (UA) (Negative) Urine Ketones (Negative) Urine Blood (Negative) Urine Nitrite (Negative) Urine Bilirubin (Negative) Urine Urobilinogen (0.2-1.0) Ur Leukocyte Esterase (Negative) Urine RBC (0-2) Urine WBC (0-5) Ur Squamous Epith Cells (None-Few) Urine Bacteria (None) Urine Opiates Screen (Negative) Ur Oxycodone Screen (Negative) Urine Methadone Screen (Negative) Ur Propoxyphene Screen (Negative) Ur Barbiturates Screen (Negative) U Tricyclic Antidepress (Negative) Ur Phencyclidine Scrn (Negative) Ur Amphetamines Screen (Negative) U Methamphetamines Scrn (Negative) U Benzodiazepines Scrn (Negative) Urine Cocaine Screen (Negative) U Marijuana (THC) Screen (Negative) Ur Drug Screen Comment SARS-CoV-2 (PCR) (Negative) HIV 1&2 Ab/P24 Ag 4thGn (Negative) POC Glucose (60-115) mg/dl 12/08/21 12/08/21 12/09/21 Range/Units 21:39 21:39 02:00 WBC (4.50-11.00) K/uL RBC (4.00-5.20) m/uL Hgb (12.0-16.0) gm/dL Hct (33.0-51.0) % MCV (80-100) fL MCH (26-34) pg MCHC (32-36) gm/dL RDW Coeff of Shelia (11.5-15.5) % Plt Count (140-440) K/uL Neut % (Auto) (42.0-72.0) % Lymph % (Auto) (20-44) % Ransom % (Auto) (0.0-11.0) % Eos % (Auto) (0.0-7.0) % Baso % (Auto) (0.0-3.0) % Neut # (Auto) (1.7-7.0) K/uL Lymph # (Auto) (0.90-2.90) K/uL [place]ansom # (Auto) (0.00-0.90) K/UL Eos # (Auto) (0.00-0.50) K/uL Baso # (Auto) (0.00-0.30) K/uL Abs Immat Gran (auto) (0.00-0.30) K/uL ABG pH (7.35-7.45) ABG pCO2 (35-45) mmHG ABG pO2 (80-105) mmHG ABG HCO3 (21-28) mmol/L ABG Total CO2 (21-30) mmol/l ABG O2 Saturation (92-100) % ABG Base Excess (-3.0-3.0) mmol/L VBG pH 7.359 (7.32-7.43) VBG pCO2 35 L (40-50) mmHG VBG pO2 82.9 H (25-47) mmHG VBG HCO3 20 L (21-28) mmol/L Sodium 137 137 (135-149) mmol/L Potassium 3.8 4.0 (3.6-5.1) mmol/L Chloride 111 110 (96-114) mmol/L Carbon Dioxide 18 L 16 L (20-32) mmol/L BUN 11 10 (5-24) mg/dL Creatinine 0.5 0.5 (0.5-1.5) mg/dL Estimated Creat Clear 145.99 145.99 Estimated GFR 136 136 ml/min Glucose 107 151 H (60-115) mg/dL Hemoglobin A1c (0-5.6) % Lactate 0.6 (0.5-1.9) mmol/L Venous Lactic Acid (Serial Order) Calcium 8.0 L 7.7 L (8.4-10.6) mg/dL Magnesium (1.5-2.6) mg/dL Total Bilirubin (0.1-1.5) mg/dL Direct Bilirubin (0.0-0.5) mg/dL AST (12-35) U/L ALT (4-35) U/L Alkaline Phosphatase (40-150) U/L C-Reactive Protein (0.5-1.0) mg/dL Total Protein (6.0-8.3) g/dL Albumin (3.3-5.0) g/dL Lipase (23-300) U/L TSH (0.270-4.20) uIU/mL Free T4 (0.70-1.85) ng/dL HCG, Qual (Negative) Urine Color (Yellow) Urine Appearance (Clear) Urine pH (5.0-8.5) Ur Specific [place] (1.000-1.030) Urine Protein (Negative) Urine Glucose (UA) (Negative) Urine Ketones (Negative) Urine Blood (Negative) Urine Nitrite (Negative) Urine Bilirubin (Negative) Urine Urobilinogen (0.2-1.0) Ur Leukocyte Esterase (Negative) Urine RBC (0-2) Urine WBC (0-5) Ur Squamous Epith Cells (None-Few) Urine Bacteria (None) Urine Opiates Screen (Negative) Ur Oxycodone Screen (Negative) Urine Methadone Screen (Negative) Ur Propoxyphene Screen (Negative) Ur Barbiturates Screen (Negative) U Tricyclic Antidepress (Negative) Ur Phencyclidine Scrn (Negative) Ur Amphetamines Screen (Negative) U Methamphetamines Scrn (Negative) U Benzodiazepines Scrn (Negative) Urine Cocaine Screen (Negative) U Marijuana (THC) Screen (Negative) Ur Drug Screen Comment SARS-CoV-2 (PCR) (Negative) HIV 1&2 Ab/P24 Ag 4thGn (Negative) POC Glucose (60-115) mg/dl 12/09/21 12/09/21 12/09/21 Range/Units 02:00 06:25 06:25 WBC (4.50-11.00) K/uL RBC (4.00-5.20) m/uL Hgb (12.0-16.0) gm/dL Hct (33.0-51.0) % MCV (80-100) fL MCH (26-34) pg MCHC (32-36) gm/dL RDW Coeff of Shelia (11.5-15.5) % Plt Count (140-440) K/uL Neut % (Auto) (42.0-72.0) % Lymph % (Auto) (20-44) % Ransom % (Auto) (0.0-11.0) % Eos % (Auto) (0.0-7.0) % Baso % (Auto) (0.0-3.0) % Neut # (Auto) (1.7-7.0) K/uL Lymph # (Auto) (0.90-2.90) K/uL Ransom # (Auto) (0.00-0.90) K/UL Eos # (Auto) (0.00-0.50) K/uL Baso # (Auto) (0.00-0.30) K/uL Abs Immat Gran (auto) (0.00-0.30) K/uL ABG pH (7.35-7.45) ABG pCO2 (35-45) mmHG ABG pO2 (80-105) mmHG ABG HCO3 (21-28) mmol/L ABG Total CO2 (21-30) mmol/l ABG O2 Saturation (92-100) % ABG Base Excess (-3.0-3.0) mmol/L VBG pH 7.299 L 7.328 (7.32-7.43) VBG pCO2 36 L 35 L (40-50) mmHG VBG pO2 61.4 H 90.7 H (25-47) mmHG VBG HCO3 18 L 19 L (21-28) mmol/L Sodium 137 (135-149) mmol/L Potassium 3.4 L (3.6-5.1) mmol/L Chloride 113 (96-114) mmol/L Carbon Dioxide 18 L (20-32) mmol/L BUN 9 (5-24) mg/dL Creatinine 0.5 (0.5-1.5) mg/dL Estimated Creat Clear 145.99 Estimated GFR 136 ml/min Glucose 97 (60-115) mg/dL Hemoglobin A1c (0-5.6) % Lactate 0.6 0.4 L (0.5-1.9) mmol/L Venous Lactic Acid (Serial Order) Calcium 7.3 L (8.4-10.6) mg/dL Magnesium (1.5-2.6) mg/dL Total Bilirubin (0.1-1.5) mg/dL Direct Bilirubin (0.0-0.5) mg/dL AST (12-35) U/L ALT (4-35) U/L Alkaline Phosphatase (40-150) U/L C-Reactive Protein (0.5-1.0) mg/dL Total Protein (6.0-8.3) g/dL Albumin (3.3-5.0) g/dL Lipase (23-300) U/L TSH (0.270-4.20) uIU/mL Free T4 (0.70-1.85) ng/dL HCG, Qual (Negative) Urine Color (Yellow) Urine Appearance (Clear) Urine pH (5.0-8.5) Ur Specific [place] (1.000-1.030) Urine Protein (Negative) Urine Glucose (UA) (Negative) Urine Ketones (Negative) Urine Blood (Negative) Urine Nitrite (Negative) Urine Bilirubin (Negative) Urine Urobilinogen (0.2-1.0) Ur Leukocyte Esterase (Negative) Urine RBC (0-2) Urine WBC (0-5) Ur Squamous Epith Cells (None-Few) Urine Bacteria (None) Urine Opiates Screen (Negative) Ur Oxycodone Screen (Negative) Urine Methadone Screen (Negative) Ur Propoxyphene Screen (Negative) Ur Barbiturates Screen (Negative) U Tricyclic Antidepress (Negative) Ur Phencyclidine Scrn (Negative) Ur Amphetamines Screen (Negative) U Methamphetamines Scrn (Negative) U Benzodiazepines Scrn (Negative) Urine Cocaine Screen (Negative) U Marijuana (THC) Screen (Negative) Ur Drug Screen Comment SARS-CoV-2 (PCR) (Negative) HIV 1&2 Ab/P24 Ag 4thGn (Negative) POC Glucose (60-115) mg/dl 12/09/21 Range/Units 06:25 WBC 8.97 (4.50-11.00) K/uL RBC 3.98 L (4.00-5.20) m/uL Hgb 11.4 L (12.0-16.0) gm/dL Hct 33.6 (33.0-51.0) % MCV 84 (80-100) fL MCH 29 (26-34) pg MCHC 34 (32-36) gm/dL RDW Coeff of Shelia 13.5 (11.5-15.5) % Plt Count 309 (140-440) K/uL Neut % (Auto) 52.7 (42.0-72.0) % Lymph % (Auto) 38.1 (20-44) % Ransom % (Auto) 6.4 (0.0-11.0) % Eos % (Auto) 2.5 (0.0-7.0) % Baso % (Auto) 0.2 (0.0-3.0) % Neut # (Auto) 4.73 (1.7-7.0) K/uL Lymph # (Auto) 3.42 H (0.90-2.90) K/uL Ransom # (Auto) 0.60 (0.00-0.90) K/UL Eos # (Auto) 0.22 (0.00-0.50) K/uL Baso # (Auto) 0.02 (0.00-0.30) K/uL Abs Immat Gran (auto) 0.01 (0.00-0.30) K/uL ABG pH (7.35-7.45) ABG pCO2 (35-45) mmHG ABG pO2 (80-105) mmHG ABG HCO3 (21-28) mmol/L ABG Total CO2 (21-30) mmol/l ABG O2 Saturation (92-100) % ABG Base Excess (-3.0-3.0) mmol/L VBG pH (7.32-7.43) VBG pCO2 (40-50) mmHG VBG pO2 (25-47) mmHG VBG HCO3 (21-28) mmol/L Sodium (135-149) mmol/L Potassium (3.6-5.1) mmol/L Chloride (96-114) mmol/L Carbon Dioxide (20-32) mmol/L BUN (5-24) mg/dL Creatinine (0.5-1.5) mg/dL Estimated Creat Clear Estimated GFR ml/min Glucose (60-115) mg/dL Hemoglobin A1c (0-5.6) % Lactate (0.5-1.9) mmol/L Venous Lactic Acid (Serial Order) Calcium (8.4-10.6) mg/dL Magnesium (1.5-2.6) mg/dL Total Bilirubin (0.1-1.5) mg/dL Direct Bilirubin (0.0-0.5) mg/dL AST (12-35) U/L ALT (4-35) U/L Alkaline Phosphatase (40-150) U/L C-Reactive Protein (0.5-1.0) mg/dL Total Protein (6.0-8.3) g/dL Albumin (3.3-5.0) g/dL Lipase (23-300) U/L TSH (0.270-4.20) uIU/mL Free T4 (0.70-1.85) ng/dL HCG, Qual (Negative) Urine Color (Yellow) Urine Appearance (Clear) Urine pH (5.0-8.5) Ur Specific [place] (1.000-1.030) Urine Protein (Negative) Urine Glucose (UA) (Negative) Urine Ketones (Negative) Urine Blood (Negative) Urine Nitrite (Negative) Urine Bilirubin (Negative) Urine Urobilinogen (0.2-1.0) Ur Leukocyte Esterase (Negative) Urine RBC (0-2) Urine WBC (0-5) Ur Squamous Epith Cells (None-Few) Urine Bacteria (None) Urine Opiates Screen (Negative) Ur Oxycodone Screen (Negative) Urine Methadone Screen (Negative) Ur Propoxyphene Screen (Negative) Ur Barbiturates Screen (Negative) U Tricyclic Antidepress (Negative) Ur Phencyclidine Scrn (Negative) Ur Amphetamines Screen (Negative) U Methamphetamines Scrn (Negative) U Benzodiazepines Scrn (Negative) Urine Cocaine Screen (Negative) U Marijuana (THC) Screen (Negative) Ur Drug Screen Comment SARS-CoV-2 (PCR) (Negative) HIV 1&2 Ab/P24 Ag 4thGn (Negative) POC Glucose (60-115) mg/dl Critical Care Time Critical Care Time Critical Care Time: Yes Attestation: The patient required my highest level preparedness to intervene emergently and I personally spent this critical care time directly and personally managing the patient. This critical care time included: Obtaining a history; Examining the patient; Pulse oximetry; Ordering and reviewing of studies; Arranging urgent treatment with development of a management plan; Evaluation of patients response to treatment; Frequent reassessment discussions with other providers. This critical care time was performed to assess and manage the high probability of imminent life-threatening deterioration that could result in multiorgan failure. It was exclusive of separate billable procedures and treating other patients and teaching time. Total Critical Care Time in Minutes: 70 Discharge Plan Discharge Clinical Impression: DKA (diabetic ketoacidosis), Diabetes mellitus, insulin dependent (IDDM), uncontrolled, Hypothyroidism Patient Disposition: Admitted As Inpatient Condition: Critical
--- OUTSIDE RECORDS SUMMARY | 2021-12-08 10:23 | XMS_ITS | Clinical Summary ---
:2000 Author Organization [facility] Address [address] [place] [address] Care Team Providers Name Role Phone Moisés Prater Primary Care Provider [phone] Allergies Active Allergy Reactions Severity Noted Date Comments Shrimp Swelling High 08/15/2020 Lip swelling Medications Medication Sig Dispensed Refills Start Date End Date Status levothyroxine Take 50 mcg by 0 A ctive (SYNTHROID/LEVOTHROID mouth daily ) 50 MCG tablet insulin glargine Inject 20 Units 0 08/20/2020 Active (LANTUS VIAL) 100 Subcutaneous At UNIT/ML Bedtime vialIndications: Type 1 diabetes mellitus without complication (H) acetaminophen Take 2 tablets (650 0 08/20/2020 Active (TYLENOL) 325 MG mg) by mouth every tabletIndications: 4 hours as needed (spontaneous for mild pain or vaginal delivery) fever (greater than or equal to 38?? C /100.4?? F (oral) or 38.5?? C/ 101.4?? F (core).) ferrous sulfate Take 1 tablet (325 30 tablet 0 08/21/2020 Active (FEROSUL) 325 (65 Fe) mg) by mouth daily MG tabletIndications: Anemia due to blood loss, acute insulin aspart Meal coverage to 1 0 08/20/2020 Active (NOVOLOG PEN) 100 unit per 8g carbs. UNIT/ML penIndications: Type 1 diabetes mellitus without complication (H) labetalol (NORMODYNE) Take 2 tablets (400 60 tablet 1 08/21/19 Active 200 MG mg) by mouth every tabletIndications: 12 hours Pre-eclampsia, severe, delivered NIFEdipine ER OSMOTIC Take 1 tablet (90 30 tablet 1 08/21/2020 Active (ADALAT CC) 90 MG 24 mg) by mouth daily hr tabletIndications: Pre-eclampsia, severe, delivered Active Problems Problem Noted Date Pre-eclampsia, severe, delivered 08/20/2020 Anemia due to blood loss, acute 08/20/2020 Leakage, amniotic fluid 08/15/2020 Maternal thyroid dysfunction, antepartum 03/08/2020 Type 1 diabetes mellitus without complication 03/27/19 17 Overview: Formatting of this note might be differe nt from the original. Diagnosis 09/28/15 Follow up [facility] Social History Tobacco Use Types Packs/Day Years Used Date Smoking Tobacco: Never Assessed Sex Assigned at Date Recorded Not on file Last Filed Vital Signs Vital Sign Reading Time Taken Comments Blood Pressure 113/60 08/20/2020 1:00 PM CDT Pulse 83 08/20/2020 1:00 PM CDT Temperature 36.7 ??C (98.1 ??F) 08/20/2020 8:19 AM CDT Respiratory Rate 14 08/20/2020 1:00 PM CDT Oxygen Saturation 97% 08/17/2020 5:26 AM CDT Inhaled Oxygen Concentration - - Weight 92 kg (202 lb 14.4 oz) 08/20/2020 5:35 AM CDT Height - - Body Mass Index - - Plan of Treatment Health Maintenance Due Date Last Done Comments ADVANCE CARE PLANNING 1999 ANNUAL REVIEW OF HM ORDERS 1999 BMP 1999 CHLAMYDIA SCREENING 1999 DIABETIC FOOT EXAM 1999 EYE EXAM 1999 LIPID 1999 MICROALBUMIN 1999 YEARLY PREVENTIVE VISIT 1999 COVID-19 Vaccine (#1) 03/04/2000 Pneumococcal Vaccine: Pediatrics 09/01/2005 06/29/2000, 07/1999, (0 to 5 Years) and At-Risk 1999 Patients (6 to 64 Years) (1 - PCV) HEPATITIS C SCREENING 09/01/2017 PAP 09/01/2020 A1C 11/16/2020 08/16/2020 PHQ-2 (once per calendar year) 2021 INFLUENZA VACCINE (#1) 2021 03/08/2020, 12/16/2016, 01/09/2014, Additional history exists DTAP/TDAP/TD IMMUNIZATION (5 - Td 06/22/2030 06/22/2020, , or Tdap) 11/06/2004, Additional history exists HEPATITIS B IMMUNIZATION Completed 03/30/2001, 02/04/2000, 1999 IPV IMMUNIZATION Completed 11/06/2004, 11/06/2004, 06/29/2000, Additional history exists HPV IMMUNIZATION Completed 05/20/2012, 10/28/2010, 03/30/2001 MENINGITIS IMMUNIZATION Completed 05/20/2018, 05/20/2012 HIV SCREENING Completed 03/08/2020 Advance Directives For more information, please contact: [phone] Latest Code Status on File Code Status Date Activated Date Inactivated Comments Full Code 08/16/2020 6:54 AM 08/20/2020 4:47 PM All basic an d advanced life-sustaining interventions are performed as addi ropriate Question Answer Comments Code status determined by: Other (please document) Care Teams Optical Mechanic Apprentice Relationship Specialty Start Date End Date Moisés Prater PCP - General Family Practice 08/20/20 [id number] [place] [id number]
--- OUTSIDE RECORDS SUMMARY | 2021-12-08 10:23 | XMS_ITS | Encounter Summary ---
:2000 Author Organization [facility] Address [address] [place] [id number] Care Team Providers Name Role Phone Moisés Prater Primary Care Provider Encounter Details Date Type Department Care Team Description 09/21/2020 Travel Social History Tobacco Use Types Packs/Day Years Used Date Smoking Tobacco: Never Assessed Sex Assigned at Date Recorded Not on file COVID-19 Exposure Response Date Recorded In the last month, have you been in contact with No / Unsure 09/21/2020 3:05 PM CDT someone who was confirmed or suspected to have Coronavirus / COVID-19? documented as of this encounter Plan of Treatment Not on filedocumented as of this encounter Visit Diagnoses Not on filedocumented in this encounter Care Teams Machine Set Up Operator Relationship Specialty Start Date End Date Moisés Prater PCP - General Family Practice 08/20/[id number] [place] [place] [address] [address] documented as of this encounter
--- OUTSIDE RECORDS SUMMARY | 2021-12-08 10:23 | XMS_ITS | Encounter Summary ---
:2000 Author Organization [facility] Address [address] [place] [address] Care Team Providers Name Role Phone Unavailable Primary Care Provider Unavailable Encounter Details Date Type Department Care Team Description 07/28/2020 Records - Elizabeth SOLIS CONVERSION Provider, Histor ical Social History Tobacco Use Types Packs/Day Years Used Date Smoking Tobacco: Never Assessed Sex Assigned at Date Recorded Not on file documented as of this encounter Plan of Treatment Not on filedocumented as of this encounter Procedures Procedure Name Priority Date/Time Associated Diagnosis Comme nts XR HAND RIGHT G/E 3 Routine 07/16/2005 12:00 AM R esults for this VIEWS CDT procedure are i n the results section. documented in this encounter Results XR Hand Right G/E 3 Views (07/16/2005 12:00 AM CDT) Anatomical Region Laterality Modality Hand, Wrist Right Other Specimen (Source) Anatomical Location Collection Method / Collectio n Time Received Time / Laterality Volume Narrative 07/16/2005 12:00 AM CDT See Historical Hospital Medical Record f or documentation Procedure Note Provider, Historical - 07/28/2020Formatt ing of this note might be different from the original. See Historical Hospital Medical Record f or documentation Historical Provider IMG DIAGNOSTIC IMAGING ORDER ELDA documented in this encounter Visit Diagnoses Not on filedocumented in this encounter
--- OUTSIDE RECORDS SUMMARY | 2021-12-08 10:23 | XMS_ITS | Encounter Summary ---
:2000 Author Organization [facility] Address [address] [place] [address]. [place] [address] Care Team Providers Name Role Phone Unavailable Primary Care Provider Unavailable Encounter Details Date Type Department Care Team Description 08/09/2020 Orders Only [facility] Shana Hernández Encounter for [facility] MD Lindsey preprocedure screening [address] [facility] laboratory testing for [place], [place] COVID-19 ( Primary Dx) [id number] [phone] Social History Tobacco Use Types Packs/Day Years Used Date Smoking Tobacco: Never Assessed Sex Assigned at Date Recorded Not on file documented as of this encounter Plan of Treatment Not on filedocumented as of this encounter Visit Diagnoses Diagnosis Encounter for preprocedure screening lab oratory testing for COVID-19 - Primary documented in this encounter
--- OUTSIDE RECORDS SUMMARY | 2021-12-08 10:23 | XMS_ITS | Encounter Summary ---
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 Diagnoses Leakage, amniotic fluid Leakage, amniotic fluid Rh [address] [place], [place] [address] Phone: Fax: Referral ID Status Reason Start Date Expiration Date Visits Requ ested Visits Authorized [id number] 1 1 Encounter Details Date Type Department Care Team Description 08/15/2020 - Hospital Encounter [facility] Kasia Burr MD [place] [address] [place] [address] [address] (spontaneous vaginal delivery) (Prim jean-paul Dx); 08/20/2020 [facility] Renea Bustamante MD [place] [employer] TECHNICIAN [address] [facility] [address] [place], [place] [id number] Pre-eclampsia, severe, delivered; [address] Bessy Good MD [place] [id number] [id number] Anemia due to blood loss, acute; Blvd Type 1 diabetes mellitus wit hout complication (H) [place] [address] Social History Tobacco Use Types Packs/Day Years Used Date Smoking Tobacco: Never Assessed Sex Assigned at Date Recorded Not on file documented as of this encounter Last Filed Vital Signs Vital Sign Reading [...] - - Body Mass Index - - documented in this encounter Discharge Summaries Pratibha Patel DO - 08/19/2020 10:30 AM CDT [facility] Discharge Summary Bessy Serna Age: [age] year old Date of : 2000 Date of Admission: 08/15/2020 Date of Discharge: 08/20/2020 Admitting Physician: Kasia Burr MD Discharge Physician: Pratibha Patel DO Admit Dx: - at 36w5d - Premature prelabor rupture of membranes - Type 1 diabetes - Pre-eclampsia with severe features - Suspected large for gestational age infant - Hypothyroidism - History of HSV - Excessive weight gain in Discharge Dx: - , s/p vaginal delivery complicated by shoulder dystocia with humerus fracture - Premature prelabor rupture of membranes - Type 1 diabetes - Pre-eclampsia with severe features - Large for gestational age - Hypothyroidism - History of HSV - Excessive weight gain in - Acute blood loss anemia Procedures: - Spontaneous vaginal delivery - Shoulder dystocia Admit HPI/Labor Course: Bessy Serna is a 19 year old who was admitted at 36w5d for PPROM, clear fluid, around 1840 on 08/15 with contractions and latent labor thereafter. was complicated by T1DM, Hypothyroidism, HSV, h/o PE, ADD, H/o chlamydia, Class 2 obesity, excessive weight gain in , pre-E without SF since 34 weeks. The patient continued to labor on her own, making adequate cervical change. Intrapartum, the patient did develop severe range blood pressures requiring 3 doses of IV labetalol(20/40/80) at which time Magnesium sulfate was initiated for seizure PPx and PO Procardia XL was also given for pre-E with SF. She received multiple doses of IV fentanyl for anesthesia. The patient wasfound to be complete at 0655, but given irregular contraction pattern, IV pitocin augmentation was given. Active second stage of labor began around 0720 after RN sign-out/handoff. She pushed effectively. At [facility], NICU team was present in the room. At 0759 the infant head delivered, JANKI position. At this time, there was no addition descent of the body nor delivery of the anterior (right) shoulder at which time a shoulder dystocia was called. At this time, in quick sequential manner, Eloise and Suprapubic pressure was applied; no fundal pressure. No additional descent was made. At this time, I attempted to deliver the posterior arm, however, this was extremely difficult given the narrowintroitus/AP diameter of the vagina. After a couple attempts were made to sweep the posterior (left)arm up and over the chest and I was notified that total time was 120 seconds since delivery ofthe head, an additional attempt was made to delivery the posterior (left) arm, and during this maneuver, I felt a pop near the left humerus which allowed for delivery of the posterior arm and quick delivery of the body at 0801, male . Within seconds after delivery, in-house provider Dr. Goodwin arrived. The cord was immediately clamped and the was brought to the warmer for NICU resuscitation. After an additional dose of IV fentanyl per patient request, Spontaneously delivery of an intact placenta with a 3-V cord ensued shortly thereafter. She received 30 units of IV pitocin as a uterotonic agent. Exam of the perineum revealed a complex 2nd degree perineal laceration extending to but not involving the sphincter capsule. There was also a left vaginal wall extension. The sphincter was reinforced with one figure of x suture using 2-0 Vicryl. The left vaginal wall extension and2nd degree perineal laceration were repaired in standard fashion using a 3-0 Vicryl suture. EBL 500cc. Rectal exam at the end of the procedure did not reveal any sutures, good rectal tone. ?? Of note, the patient was made aware of the shoulder dystocia, severity and likely humerus fracture. She was also made aware of likely follow-up. Please see her Admission H&P and Delivery Summary for further details. Course: She received magnesium for 24 hours for seizure prophylaxis. She was titrated up to 90 mgof nifedipine XL and 400 mg of labetalol BID for BP control. HELLP labs remained within normal limits. The hospitalist service was consulted assistance in managing insulin . On PPD#4, she wasmeeting all of her goals and deemed stable for discharge. She was voiding without difficulty, tolerating a regular diet without nausea and vomiting, her pain was well controlled on oral painmedicines and her lochia was appropriate. Her hemoglobin prior to delivery was 11.1 and after delivery was 8.4. Her Rh status was positive, and Rhogam was not indicated. Discharge Medications: Daphne Bessy Tin Home Medication Instructions QUAN:[id number] Printed on:08/20/20 3413 Medication Information acetaminophen (TYLENOL) 325 MG tablet Take 2 tablets (650 mg) by mouth every 4 hours as needed for mild pain or fever (greater than or equal to 38?? C /100.4?? F (oral) or 38.5?? C/ 101.4?? F (core).) ferrous sulfate (FEROSUL) 325 (65 Fe) MG tablet Take 1 tablet (325 mg) by mouth daily insulin aspart (NOVOLOG PEN) 100 UNIT/ML pen Meal coverage to 1 unit per 8g carbs. insulin glargine (LANTUS VIAL) 100 UNIT/ML vial Inject 20 Units Subcutaneous At Bedtime labetalol (NORMODYNE) 200 MG tablet Take 2 tablets (400 mg) by mouth every 12 hours levothyroxine (SYNTHROID/LEVOTHROID) 50 MCG tablet Take 50 mcg by mouth daily NIFEdipine ER OSMOTIC (ADALAT CC) 90 MG 24 hr tablet Take 1 tablet (90 mg) by mouth daily Discharge/Disposition: Bessy Serna was discharged to home in stable condition with the following instructions/medications: 1) Call for temperature > 100.4, bright red vaginal bleeding >1 pad an hour x 2 hours, foul smelling vaginal discharge, pain not controlled by usual oral pain meds, persistent nausea and vomitingnot controlled on medications 2) She desired to use condoms for contraception. 3) For feeding she decided to breatfeed. 4) She was instructed to follow-up with her primary OB in 6 weeks for a routine visit andin 1 week (by ThursdayAugust 24) for a BP check in clinic 5) she was instructed to check her BP twice daily and call if >150/100 or <110/50. documented in this encounter Discharge Instructions Discharge InstructionsTerri Billings RN - 08/20/2020 2:01 PM CDT Vaginal Delivery Instructions Activity ?? Ask family and friends for help when you need it. ?? Do not place anything in your vagina for 6 weeks. ?? You are not restricted on other activities, but take it easy for a few weeks to allow your body to recover from delivery. You are able to do any activities you feel up to that point. ?? No driving until you have stopped taking your pain medications (usually two weeks after delivery). Call your health care provider if you have any of these symptoms: ?? Increased pain, swelling, redness, or fluid around your stiches from an episiotomy or perineal tear. ?? A fever above 100.4 F (38 C) with or without chills when placing a thermometer under your tongue. ?? You soak a sanitary pad with blood within 1 hour, or you see blood clots larger than a golf ball. ?? Bleeding that lasts more than 6 weeks. ?? Vaginal discharge that smells bad. ?? Severe pain, cramping or tenderness in your lower belly area. ?? A need to urinate more frequently (use the toilet more often), more urgently (use the toilet veryquickly), or it hurst when you urinate. ?? Nausea and vomiting. ?? Redness, swelling or pain around a vein in your leg. ?? Problems or a red or painful area on your breast. ?? Chest pain and cough or are gasping for air. ?? Problems coping with sadness, anxiety, or depression. If you have any concerns about hurting yourself or the baby, call your provider immediately. ?? You have questions or concerns after you return home. Keep your hands clean: Always wash your hands before touching your perineal area and stitches. This helps reduce your risk of infection. If your hands aren't dirty, you may use an alcohol hand-rub to clean your hands. Keep your nails clean and short. Preeclampsia Call your doctor right away if you have any of the following: - Edema (swelling) in your face or hands - Rapid weight gain-about 1 pound or more in a day - Headache - Abdominal pain on your right side - Vision problems (flashes or spots) - You have questions or concerns once you return home. documented in this encounter Medications at Time of Discharge Medication Sig Dispensed Refills Start Date End Date acetaminophen (TYLENOL) Take 2 tablets (650 mg) 0 08/20/2020 325 MG by mouth every 4 hours tabletIndications: as needed for mild pain (spontaneous vaginal or fever (greater than delivery) or equal to 38?? C /100.4?? F (oral) or 38.5?? C/ 101.4?? F (core).) ferrous sulfate Take 1 tablet (325 mg) 30 tablet 0 08/22/19 21 (FEROSUL) 325 (65 Fe) MG by mouth daily tabletIndications: Anemia due to blood loss, acute insulin aspart (NOVOLOG Meal coverage to 1 unit 0 08/20/2020 PEN) 100 UNIT/ML per 8g carbs. penIndications: Type 1 diabetes mellitus without complication (H) insulin glargine (LANTUS Inject 20 Units 0 2020 VIAL) 100 UNIT/ML Subcutaneous At Bedtime vialIndications: Type 1 diabetes mellitus without complication (H) labetalol (NORMODYNE) Take 2 tablets (400 mg) 60 tablet 1 0 08/20/2020 200 MG by mouth every 12 hours tabletIndications: Pre-eclampsia, severe, delivered levothyroxine Take 50 mcg by mouth 0 (SYNTHROID/LEVOTHROID) daily 50 MCG tablet NIFEdipine ER OSMOTIC Take 1 tablet (90 mg) 30 tablet 1 (ADALAT CC) 90 MG 24 hr by mouth daily tabletIndications: Pre-eclampsia, severe, delivered documented as of this encounter Progress Notes Diony Mills DO - 08/20/2020 10:43 AM CDT [facility] Hospitalist Progress Note Name: Bessy Serna Provider: Diony Mills DO, MPH Date of Service: 08/20/2020 Summary of Stay: Bessy Serna is a 19 year old female with a history of HTN, DM1 admitted on 08/15/2020 with IUP. Problem List: 1. Hypertension: Blood pressure reasonable, currently on labetalol 400 BID (increased from 200 BID today) and procardia 90 daily. Recheck today frequently. 2. DM1: HbA1c 6.2. Discussed with pharmacy today. Decrease Lantus to 20 unit(s) at bedtime, adjust meal coverage to 1 unit(s) per 8 g carbs and change sliding scale insulin (see sticky notes for details, will ask pharmacy to create this order). DVT Prophylaxis: Defer to primary service Code Status: Full Code Diet: Room Service Moderate Consistent CHO Diet Diet Ureña Catheter: Not present Disposition: Expected discharge in 0-1 days to home. Goals prior to discharge include monitor BG andBG. Incidental Findings: None. Family updated today: No Call if questions, I'm Ok with discharge today assuming BP readings are reasonable. Interval History Assumed care from previous hospitalist. The history was fully reviewed. The patient reports doing well. No chest pain or shortness of breath. No nausea, vomiting, diarrhea,constipation. No fevers. No other specific complaints identified. Discussed with nursing and pharmacy. -Data reviewed today: I personally reviewed all new labs and imaging results over the last 24 hours. Physical Exam Temp: 98.1 ??F (36.7 ??C) Temp src: Oral BP: 113/60 Pulse: 83 Resp: 14 Vitals: 08/18/20 0848 08/19/20 0538 08/20/20 0535 Weight: 99 kg (218 lb 4.8 oz) 95.9 kg (211 lb 6.4 oz) 92 kg (202 lb 14.4 oz) Vital Signs with Ranges Temp: [98.1 ??F (36.7 ??C)-98.7 ??F (37.1 ??C)] 98.1 ??F (36.7 ??C) Pulse: [83-114] 83 Resp: [14-18] 14 BP: (113-166)/(60-97) 113/60 No intake/output data recorded. GENERAL: No apparent distress. Awake, alert, and fully oriented. HEENT: Normocephalic, atraumatic. Extraocular movements intact. CARDIOVASCULAR: Regular rate and rhythm without murmurs or rubs. No S3. PULMONARY: Clear bilaterally. GASTROINTESTINAL: Soft, non-tender, non-distended. Bowel sounds normoactive. EXTREMITIES: No cyanosis or clubbing. No edema. NEUROLOGICAL: CN 2-12 grossly intact, no focal neurological deficits. DERMATOLOGICAL: No rash, ulcer, bruising, nor jaundice. Medications ??? labetalol (NORMODYNE/TRANDATE) algorithm-medication instruction ??? lactated ringers 87.5 mL/hr (08/16/20 2305) ??? nitrous oxide/oxygen 50/50 blend ??? - MEDICATION INSTRUCTIONS - ??? NO Rho (D) immune globulin (RhoGam) needed - mother Rh POSITIVE ??? - MEDICATION INSTRUCTIONS - ??? oxytocin in 0.9% NaCl Stopped (08/16/20 1153) ??? oxytocin in 0.9% NaCl ??? ferrous sulfate 325 mg Oral Daily ??? insulin aspart Subcutaneous TID AC ??? insulin aspart 1-7 Units Subcutaneous TID AC ??? insulin aspart 1-5 Units Subcutaneous At Bedtime ??? insulin glargine 20 Units Subcutaneous At Bedtime ??? labetalol 400 mg Oral Q12H NONI ??? levothyroxine 50 mcg Oral Daily ??? NIFEdipine ER OSMOTIC 90 mg Oral Daily ??? senna-docusate 1 tablet Oral BID Or ??? senna-docusate 2 tablet Oral BID ??? sodium chloride (PF) 3 mL Intracatheter Q8H Data Laboratory: Recent Labs Lab 08/20/20 0706 08/19/20 0702 08/18/20 0644 08/17/20 0801 WBC -- 12.7* 16.0* 19.5* HGB -- 8.4* 8.6* 9.0* HCT -- 26.7* 27.1* 27.8* MCV -- 83 83 82 PLT 357 275 266 242 Recent Labs Lab 08/20/20 0706 08/17/20 0801 08/16/20 1236 CR 0.63 0.83 0.96 GFRESTIMATED >90 >90 84 GFRESTBLACK >90 >90 >90 Recent Labs Lab 08/20/20 0204 08/19/20 2200 08/19/20 1841 08/19/20 1405 08/19/20 0935 BGM 84 157* 239* 229* 139* No results for input(s): CULT in the last 168 hours. Imaging: No results found for this or any previous visit (from the past 24 hour(s)). Diony Mills DO MPH [facility] [place] [address] 08/20/2020 Pratibha Patel DO - 08/20/2020 7:49 AM CDT [facility] OB Note S: Bessy Serna feels tired this morning. Was able to sleep last night. Pain control adequate. Lochia minimal. Voiding. Breast feeding and pumping for baby in the NICU. Mood Good. BP overnight [id number]/70-80. Labetalol was increased to 400mg BID last evening. O: Vitals were reviewed Blood pressure 137/78, pulse 86, temperature 98.7 ??F (37.1 ??C), temperature source Oral, resp. rate 16, weight 92 kg (202 lb 14.4 oz), SpO2 97 %, unknown if currently . General: healthy, alert and no distress Abd: soft, appropriately tender, fundus firm Legs: Non-tender, 0+ pitting edema RH(D) Date Value Ref Range Status 08/15/2020 Pos Final Assessment/Plan: 19 year old on PPD #4 s/p vaginal delivery complicated by shoulder dystocia with fracture ofneonatal left humerus. - continue with routine management ?? Pre-eclampsia with severe features - s/p magnesium sulfate 08/16-08/17 - currently taking PO nifedipine 90 mg daily and labetalol 400mg BID, with Goal BP <140/90. Will check BP every 2 hours while awake today - HELLP labs this AM pending ?? DM1 - appreciate hospitalist assistance - currently on lantus 22U, 1U per 5g of carbs and sliding scale insulin with meals ?? Acute blood loss anemia - continue PO iron ?? Hypothyroidism - continue 50 mcg levothyroxine ?? Delivery complicated by shoulder dystocia - has had a discussion about increased risk with subsequent deliveries ?? Pain: Well-controlled with ibuprofen and tylenol Hgb: 11.1>QBL 500> 8.4 Rh: positive Rubella: immune Feed: /pumping for baby in NICU BC: Plans condoms Dispo: Plan for home possibly today but not until the afternoon depending on BP control on [id number] BID and procardia XL 90mg daily. Pratibha Patel DO, DO Shana Hernández MD - 08/19/2020 9:45 AM CDT [facility] Post- Note Name: Bessy Serna S: Patient doing well this AM. Breastmilk is starting to come in and feeling engorged. Pumping for baby in NICU. Having some discomfort over perineal laceration. Has had a bowel movement and is voidingw/o difficulty. Tolerating regular diet without nausea or vomiting. Ambulating without dizziness. Denies headache, vision changes, shortness of breath, chest pain. Lochia less than a typical period. O: Patient Vitals for the past 24 hrs: BP Temp Temp src Pulse Resp Weight 08/19/20 0837 (!) 144/80 98.7 ??F (37.1 ??C) Oral 95 16 -- 08/19/20 0538 -- -- -- -- -- 95.9 kg (211 lb 6.4 oz) 08/18/20 2300 134/79 98.3 ??F (36.8 ??C) Oral 92 16 -- 08/18/20 1711 (!) 149/94 98.4 ??F (36.9 ??C) Oral 100 16 -- 08/18/20 1242 (!) 141/78 -- -- -- -- -- Gen: Sitting up in bed, pumping CV: Regular rate Pulm: Breathing comfortably on room air Abd: Soft, non-distended. Fundus below umbilicus, firm and non-tender. Ext: non-tender, +2 LE edema b/l Hgb: Recent Labs Lab Test 08/19/20 0702 HGB 8.4* Assessment/Plan: 19 year old on PPD #3 s/p vaginal delivery complicated by shoulder dystocia with fracture ofneonatal left humerus. - continue with routine management, discussed ice pack for perineum if desired Pre-eclampsia with severe features - s/p magnesium sulfate 08/16-08/17 - currently taking PO nifedipine 90 mg daily and labetalol 200mg BID, add an additional 100mg of labetalol this AM to increase labetalol dose to 300mg BID. Goal BP <140/90 - HELLP labs WNL last 08/17 DM1 - appreciate hospitalist assistance - currently on lantus 20U, 1U per 5g of carbs and sliding scale insulin with meals Acute blood loss anemia - continue PO iron Hypothyroidism - continue 50 mcg levothyroxine Delivery complicated by shoulder dystocia - has had a discussion about increased risk with subsequent deliveries Pain: Well-controlled with ibuprofen and tylenol Hgb: 11.1>QBL 500> 8.4 Rh: positive Rubella: immune Feed: /pumping for baby in NICU BC: Plans condoms Dispo: Plan for home tomorrow d/t labile BP and BG, labetalol increased to 300mg BID today MD Miladis Vega Subgrade Tester 08/19/20 Lashay Bowen MD - 08/19/2020 9:03 AM CDT [facility] Hospitalist Progress Note Name: Bessy Serna Provider: Lashay Bowen MD Date of Service: 08/19/2020 Assessment & Plan Summary of Stay: Bessy Serna is a 19-year-old female with past medical history significant for type 1 diabetes mellitus, hypothyroidism, hip ADD history of chlamydia HSV, 1 para 101 Was admitted for premature rupture of membranes and labor. Underwent spontaneous vaginal delivery. Intrapartum patient did develop severe preeclampsia requiring IV labetalol and magnesium. She was started on Procardia. She also was initially started on insulin drip. Baby was delivered earlier today ?? care -Status post vaginal delivery following premature rupture of membranes and labor - complicated with preeclampsia -Treated with IV labetalol, Procardia XL p.o. and magnesium drip for seizure prophylaxis -Blood pressure is reasonably controlled - care per NUCLE[employer] INSTRUMENT TECHNICIAN Hypertension -Received labetalol, Procardia XL and magnesium initially -Now on Procardia -Blood pressure persistently elevated -Started on labetalol 200 mg twice daily ?? Diabetes mellitus type 1: Variable control -Episode of hypoglycemia on 08/18/2020, now has been more hyperglycemic in last 24 hours -Insulin coverage during labor was reactive insulin drip did not require much coverage -We will place her on medium sliding scale insulin as an outpatient is starting to take p.o. -Increase glargine to 22 units at night -Blood glucose overnight were fluctuating. Hypothyroidism -Resume levothyroxine Leukocytosis -post delivery -trending down -we'll monitor in a.m. DVT Prophylaxis: Defer to primary service Code Status: Full Code Disposition: Expected discharge defer to primary team Interval History Reviewed chart. Patient was hypoglycemic overnight. This morning is feeling better however blood pressure was elevated.10 point review of system was completed was otherwise negative -Data reviewed today: I reviewed all new labs and imaging reports over the last 24 hours. I personally reviewed no images or EKG's today. Physical Exam Temp: 98.7 ??F (37.1 ??C) Temp src: Oral BP: (!) 144/80 Pulse: 95 Resp: 16 Vitals: 08/17/20 0534 08/18/20 0848 08/19/20 0538 Weight: 102 kg (224 lb 12.8 oz) 99 kg (218 lb 4.8 oz) 95.9 kg (211 lb 6.4 oz) Vital Signs with Ranges Temp: [98.3 ??F (36.8 ??C)-98.7 ??F (37.1 ??C)] 98.7 ??F (37.1 ??C) Pulse: [92-100] 95 Resp: [16] 16 BP: (134-149)/(78-94) 144/80 I/O last 3 completed shifts: In: - Out: 3600 [Urine:3600] GENERAL: Comfortable. PSYCH: pleasant, oriented, No acute distress. EYES: PERRLA, Normal conjunctiva. HEART: Normal S1, S2 with no edema. LUNGS: Clear to auscultation, normal Respiratory effort. ABDOMEN: Soft, no hepatosplenomegaly, normal bowel sounds. SKIN: Dry to touch, No rash. Neuro: Non focal with normal motor power, sensation, CN's and Reflexes. Medications ??? labetalol (NORMODYNE/TRANDATE) algorithm-medication instruction ??? lactated ringers 87.5 mL/hr (08/16/20 2305) ??? nitrous oxide/oxygen 50/50 blend ??? - MEDICATION INSTRUCTIONS - ??? NO Rho (D) immune globulin (RhoGam) needed - mother Rh POSITIVE ??? - MEDICATION INSTRUCTIONS - ??? oxytocin in 0.9% NaCl Stopped (08/16/20 1153) ??? oxytocin in 0.9% NaCl ??? ferrous sulfate 325 mg Oral Daily ??? insulin aspart Subcutaneous QAM AC ??? insulin aspart Subcutaneous Daily with lunch ??? insulin aspart Subcutaneous Daily with supper ??? insulin aspart 1-7 Units Subcutaneous TID AC ??? insulin aspart 1-5 Units Subcutaneous At Bedtime ??? insulin glargine 18 Units Subcutaneous At Bedtime ??? labetalol 200 mg Oral Q12H NONI ??? levothyroxine 50 mcg Oral Daily ??? NIFEdipine ER OSMOTIC 90 mg Oral Daily ??? senna-docusate 1 tablet Oral BID Or ??? senna-docusate 2 tablet Oral BID ??? sodium chloride (PF) 3 mL Intracatheter Q8H Data No results for input(s): PH, PHV, PO2, PO2V, SAT, PCO2, PCO2V, HCO3, HCO3V in the last 168 hours. Recent Labs Lab 08/19/20 0702 08/18/20 0644 08/17/20 0801 WBC 12.7* 16.0* 19.5* HGB 8.4* 8.6* 9.0* HCT 26.7* 27.1* 27.8* MCV 83 83 82 PLT 275 266 242 Recent Labs Lab 08/17/20 0801 08/16/20 1236 08/16/20 0238 CR 0.83 0.96 0.87 GFRESTIMATED >90 84 >90 GFRESTBLACK >90 >90 >90 No results for input(s): CULT in the last 168 hours. No results for input(s): NTBNPI, NTBNP in the last 168 hours. No results for input(s): INR in the last 168 hours. No results for input(s): LACT in the last 168 hours. No results for input(s): LIPASE in the last 168 hours. No results for input(s): COLOR, APPEARANCE, URINEGLC, URINEBILI, URINEKETONE, SG, UBLD, URINEPH, PROTEIN, UROBILINOGEN, NITRITE, LEUKEST, RBCU, WBCU in the last 168 hours. No results found for this or any previous visit (from the past 24 hour(s)). Lashay Bowen MD - 08/18/2020 3:42 PM CDT [facility] Hospitalist Progress Note Name: Bessy Serna Provider: Lashay Bowen MD Date of Service: 08/18/2020 Assessment & Plan Summary of Stay: Bessy Serna is a 19-year-old female with past medical history significant for type 1 diabetes mellitus, hypothyroidism, hip ADD history of chlamydia HSV, 1 para 101 Was admitted for premature rupture of membranes and labor. Underwent spontaneous vaginal delivery. Intrapartum patient did develop severe preeclampsia requiring IV labetalol and magnesium. She was started on Procardia. She also was initially started on insulin drip. Baby was delivered earlier today ?? care -Status post vaginal delivery following premature rupture of membranes and labor - complicated with preeclampsia -Treated with IV labetalol, Procardia XL p.o. and magnesium drip for seizure prophylaxis -Blood pressure is reasonably controlled - care per NUCLEAR PLANT INSTRUMENT TECHNICIAN Hypertension -Received labetalol, Procardia XL and magnesium initially -Now on Procardia -Blood pressure persistently elevated -Started on labetalol 200 mg twice daily ?? Diabetes mellitus type 1 Episode of hypoglycemia earlier today -Insulin coverage during labor was reactive insulin drip did not require much coverage -We will place her on medium sliding scale insulin as an outpatient is starting to take p.o. -Decrease glargine to 18 units at night -Blood glucose overnight were fluctuating. Hypothyroidism -Resume levothyroxine Leukocytosis -post delivery -trending down -we'll monitor in a.m. DVT Prophylaxis: Defer to primary service Code Status: Full Code Disposition: Expected discharge defer to primary team Interval History Reviewed chart. Patient was hypoglycemic overnight. This morning is feeling better however blood pressure was elevated and had a lower blood glucose earlier. 10 point review of system was completed was otherwise negative -Data reviewed today: I reviewed all new labs and imaging reports over the last 24 hours. I personally reviewed no images or EKG's today. Physical Exam Temp: 98.6 ??F (37 ??C) Temp src: Oral BP: (!) 141/78 Pulse: 106 Resp: 16 Vitals: 08/16/20 1200 08/17/20 0534 08/18/20 0848 Weight: 102.1 kg (225 lb) 102 kg (224 lb 12.8 oz) 99 kg (218 lb 4.8 oz) Vital Signs with Ranges Temp: [98.3 ??F (36.8 ??C)-98.6 ??F (37 ??C)] 98.6 ??F (37 ??C) Pulse: [86-106] 106 Resp: [16] 16 BP: (141-158)/(78-92) 141/78 I/O last 3 completed shifts: In: - Out: 5500 [Urine:5500] GENERAL: Comfortable. PSYCH: pleasant, oriented, No acute distress. EYES: PERRLA, Normal conjunctiva. HEART: Normal S1, S2 with no edema. LUNGS: Clear to auscultation, normal Respiratory effort. ABDOMEN: Soft, no hepatosplenomegaly, normal bowel sounds. SKIN: Dry to touch, No rash. Neuro: Non focal with normal motor power, sensation, CN's and Reflexes. Medications ??? labetalol (NORMODYNE/TRANDATE) algorithm-medication instruction ??? lactated ringers 87.5 mL/hr (08/16/20 2305) ??? nitrous oxide/oxygen 50/50 blend ??? - MEDICATION INSTRUCTIONS - ??? NO Rho (D) immune globulin (RhoGam) needed - mother Rh POSITIVE ??? - MEDICATION INSTRUCTIONS - ??? oxytocin in 0.9% NaCl Stopped (08/16/20 1153) ??? oxytocin in 0.9% NaCl ??? ferrous sulfate 325 mg Oral Daily ??? insulin aspart Subcutaneous QAM AC ??? insulin aspart Subcutaneous Daily with lunch ??? insulin aspart Subcutaneous Daily with supper ??? insulin aspart 1-7 Units Subcutaneous TID AC ??? insulin aspart 1-5 Units Subcutaneous At Bedtime ??? insulin glargine 18 Units Subcutaneous At Bedtime ??? labetalol 200 mg Oral Q12H NONI ??? levothyroxine 50 mcg Oral Daily ??? NIFEdipine ER OSMOTIC 90 mg Oral Daily ??? senna-docusate 1 tablet Oral BID Or ??? senna-docusate 2 tablet Oral BID ??? sodium chloride (PF) 3 mL Intracatheter Q8H Data No results for input(s): PH, PHV, PO2, PO2V, SAT, PCO2, PCO2V, HCO3, HCO3V in the last 168 hours. Recent Labs Lab 08/18/20 0644 08/17/20 0801 08/16/20 1236 WBC 16.0* 19.5* 28.1* HGB 8.6* 9.0* 10.4* HCT 27.1* 27.8* 32.2* MCV 83 82 81 PLT 266 242 227 Recent Labs Lab 08/17/20 0801 08/16/20 1236 08/16/20 0238 CR 0.83 0.96 0.87 GFRESTIMATED >90 84 >90 GFRESTBLACK >90 >90 >90 No results for input(s): CULT in the last 168 hours. No results for input(s): NTBNPI, NTBNP in the last 168 hours. No results for input(s): INR in the last 168 hours. No results for input(s): LACT in the last 168 hours. No results for input(s): LIPASE in the last 168 hours. No results for input(s): COLOR, APPEARANCE, URINEGLC, URINEBILI, URINEKETONE, SG, UBLD, URINEPH, PROTEIN, UROBILINOGEN, NITRITE, LEUKEST, RBCU, WBCU in the last 168 hours. No results found for this or any previous visit (from the past 24 hour(s)). Mechelle Meehan MD - 08/18/2020 9:20 AM CDT Patient Name: Bessy Serna Age: [age] year old Date of : 2000 PROGRESS NOTE Pt is PPD#2 s/p vaginal delivery. She is doing well without complaints. Pt is ambulating, voiding, tolerating a regular diet. Pain is well controlled and lochia is within normal limits. She is pumping.Baby is doing well in NICU. Objective: Temp: [97.9 ??F (36.6 ??C)-98.6 ??F (37 ??C)] 98.6 ??F (37 ??C) Pulse: [80-106] 106 Resp: [16] 16 BP: (123-158)/(60-92) 150/86 218 lbs 4.8 oz General Appearance: NAD Lungs: unlabored Cardiovascular: RRR Abdomen: nontender, nondistended Fundus: firm, below the umbilicus Lower extremities: trace symmetric edema Lab Review: Hemoglobin Date Value Ref Range Status 08/18/2020 8.6 (L) 11.7 - 15.7 g/dL Final 08/17/2020 9.0 (L) 11.7 - 15.7 g/dL Final 08/16/2020 10.4 (L) 11.7 - 15.7 g/dL Final Hematocrit Date Value Ref Range Status 08/18/2020 27.1 (L) 35.0 - 47.0 % Final 08/17/2020 27.8 (L) 35.0 - 47.0 % Final 08/16/2020 32.2 (L) 35.0 - 47.0 % Final Lab Results Component Value Date WBC 16.0 08/18/2020 Lab Results Component Value Date RBC 3.25 08/18/2020 Lab Results Component Value Date HGB 8.6 08/18/2020 Lab Results Component Value Date HCT 27.1 08/18/2020 No components found for: MCT Lab Results Component Value Date MCV 83 08/18/2020 Lab Results Component Value Date MCH 26.5 08/18/2020 Lab Results Component Value Date MCHC 31.7 08/18/2020 Lab Results Component Value Date RDW 15.9 08/18/2020 Lab Results Component Value Date PLT 266 08/18/2020 Assessment: 19yo PPD#2 s/p vaginal delivery, complicated by shoulder dystocia requiring fracture of left humerus Plan: - : recovering well. Pain well controlled. Cont PO pain meds and regular diet. Encourage ambulation. - PreE with SF: - s/p magnesium sulfate on 08/16-08/17 - Bps persistently mild range. Cont to monitor BPS closely - Cont PO nifedipine 90mg daily. Will now add Labetalol 200mg BID - DM1 - Appreciate hospitalist care and recs - ABLA: cont PO iron - Hypothyroidism: cont Levothyroxine - Delivery complicated by shoulder dystocia requiring left humerus fracture: aware of importance of maintaining normal FSGs; aware of increased risk with subsequent deliveries. - Contraception: declines - Dispo: anticipate DC PPD#3 or 4, depending on BPs Mechelle Meehan MD [facility] NUCLEAR PLANT INSTRUMENT TECHNICIAN August 18, 2020 Lashay Bowen MD - 08/17/2020 9:49 AM CDT [facility] Hospitalist Progress Note Name: Bessy Serna Provider: Lashay Bowen MD Date of Service: 08/17/2020 Assessment & Plan Summary of Stay: Bessy Serna is a 19-year-old female with past medical history significant for type 1 diabetes mellitus, hypothyroidism, hip ADD history of chlamydia HSV, 1 para 101 Was admitted for premature rupture of membranes and labor. Underwent spontaneous vaginal delivery. Intrapartum patient did develop severe preeclampsia requiring IV labetalol and magnesium. She was started on Procardia. She also was initially started on insulin drip. Baby was delivered earlier today ?? care -Status post vaginal delivery following premature rupture of membranes and labor - complicated with preeclampsia -Treated with IV labetalol, Procardia XL p.o. and magnesium drip for seizure prophylaxis -Blood pressure is reasonably controlled - care per NUCLE[employer]ANT INSTRUMENT TECHNICIAN Hypertension -Received labetalol, Procardia XL and magnesium initially -Now on Procardia -Blood pressure 140/70s System ?? Diabetes mellitus type 1 -Insulin coverage during labor was reactive insulin drip did not require much coverage -We will place her on medium sliding scale insulin as an outpatient is starting to take p.o. -Resumed glargine 30 units -Blood glucose overnight were fluctuating. Hypothyroidism -Resume levothyroxine Leukocytosis -post delivery -trending down -we'll monitor in a.m. DVT Prophylaxis: Defer to primary service Code Status: Full Code Disposition: Expected discharge defer to primary team Interval History Reviewed chart. Overnight patient was hypoglycemic resumed glargine. Doing well this morning. Tolerating p.o. pain is well controlled blood pressures controlled. Baby is in NICU 10 point review of system was completed was otherwise negative -Data reviewed today: I reviewed all new labs and imaging reports over the last 24 hours. I personally reviewed no images or EKG's today. Physical Exam Temp: 97.5 ??F (36.4 ??C) Temp src: Oral BP: (!) 144/71 Pulse: 92 Resp: 16 SpO2: 97 % Vitals: 08/16/20 1200 08/17/20 0534 Weight: 102.1 kg (225 lb) 102 kg (224 lb 12.8 oz) Vital Signs with Ranges Temp: [97.5 ??F (36.4 ??C)-98 ??F (36.7 ??C)] 97.5 ??F (36.4 ??C) Pulse: [80-97] 92 Resp: [16-20] 16 BP: (113-149)/(54-99) 144/71 SpO2: [96 %-99 %] 97 % I/O last 3 completed shifts: In: 1921.3 [P.O.:175; I.V.:1746.3] Out: 4220 [Urine:3720; Blood:500] GENERAL: Comfortable. PSYCH: pleasant, oriented, No acute distress. EYES: PERRLA, Normal conjunctiva. HEART: Normal S1, S2 with no edema. LUNGS: Clear to auscultation, normal Respiratory effort. ABDOMEN: Soft, no hepatosplenomegaly, normal bowel sounds. SKIN: Dry to touch, No rash. Neuro: Non focal with normal motor power, sensation, CN's and Reflexes. Medications ??? labetalol (NORMODYNE/TRANDATE) algorithm-medication instruction ??? lactated ringers 87.5 mL/hr (08/16/20 2305) ??? nitrous oxide/oxygen 50/50 blend ??? - MEDICATION INSTRUCTIONS - ??? NO Rho (D) immune globulin (RhoGam) needed - mother Rh POSITIVE ??? - MEDICATION INSTRUCTIONS - ??? oxytocin in 0.9% NaCl Stopped (08/16/20 1153) ??? oxytocin in 0.9% NaCl ??? ferrous sulfate 325 mg Oral Daily ??? insulin aspart Subcutaneous QAM AC ??? insulin aspart Subcutaneous Daily with lunch ??? insulin aspart Subcutaneous Daily with supper ??? insulin aspart 1-7 Units Subcutaneous TID AC ??? insulin aspart 1-5 Units Subcutaneous At Bedtime ??? insulin glargine 30 Units Subcutaneous At Bedtime ??? levothyroxine 50 mcg Oral Daily ??? NIFEdipine ER OSMOTIC 30 mg Oral Once ??? [START ON 08/18/2020] NIFEdipine ER OSMOTIC 90 mg Oral Daily ??? senna-docusate 1 tablet Oral BID Or ??? senna-docusate 2 tablet Oral BID Data No results for input(s): PH, PHV, PO2, PO2V, SAT, PCO2, PCO2V, HCO3, HCO3V in the last 168 hours. Recent Labs Lab 08/17/20 0801 08/16/20 1236 08/15/20 2235 WBC 19.5* 28.1* 10.6 HGB 9.0* 10.4* 11.1* HCT 27.8* 32.2* 34.3* MCV 82 81 80 PLT 242 227 196 Recent Labs Lab 08/17/20 0801 08/16/20 1236 08/16/20 0238 CR 0.83 0.96 0.87 GFRESTIMATED >90 84 >90 GFRESTBLACK >90 >90 >90 No results for input(s): CULT in the last 168 hours. No results for input(s): NTBNPI, NTBNP in the last 168 hours. No results for input(s): INR in the last 168 hours. No results for input(s): LACT in the last 168 hours. No results for input(s): LIPASE in the last 168 hours. No results for input(s): COLOR, APPEARANCE, URINEGLC, URINEBILI, URINEKETONE, SG, UBLD, URINEPH, PROTEIN, UROBILINOGEN, NITRITE, LEUKEST, RBCU, WBCU in the last 168 hours. No results found for this or any previous visit (from the past 24 hour(s)). Kasia Burr MD - 08/17/2020 9:36 AM CDT MILADIS MISHRADusty PPD# 1 Pt doing well, states she has visited baby and was told her baby has an arm fracture but overall doing well. Ambulating, voiding, tolerating PO. Decreased lochia. Pain controlled. Breast pumping and coping well with when visiting. Vitals: 08/17/20 0320 08/17/20 0526 08/17/20 0534 08/17/20 0730 BP: (!) 145/87 138/75 (!) 149/99 Pulse: 91 80 97 Resp: 16 Temp: 97.5 ??F (36.4 ??C) TempSrc: Oral SpO2: 97% 97% Weight: 102 kg (224 lb 12.8 oz) Abd soft, appropriately tender, nondistended, FFBU, no fundal tenderness Ext 1+ edema bilat LE, no CT BL Lab Results Component Value Date HGB 9.0 08/17/2020 Results for BESSY SERNA ( ) as of 08/17/2020 09:41 Ref. Range 08/16/2020 16:42 08/16/2020 18:06 08/16/2020 22:31 08/17/2020 07:49 08/17/2020 08:01 Glucose Latest Ref Range: 70 - 99 mg/dL 227 (H) 254 (H) 294 (H) 89 Results for BESSY SERNA ( ) as of 08/17/2020 09:41 Ref. Range 08/17/2020 08:01 Creatinine Latest Ref Range: 0.52 - 1.04 mg/dL 0.83 GFR Estimate Latest Ref Range: >60 mL/min/1.73_m2 >90 GFR Estimate If Black Latest Ref Range: >60 mL/min/1.73_m2 >90 Magnesium Latest Ref Range: 1.6 - 2.3 mg/dL 5.8 (H) ALT Latest Ref Range: 0 - 50 U/L 14 AST Latest Ref Range: 0 - 45 U/L 31 WBC Latest Ref Range: 4.0 - 11.0 10e9/L 19.5 (H) Hemoglobin Latest Ref Range: 11.7 - 15.7 g/dL 9.0 (L) Hematocrit Latest Ref Range: 35.0 - 47.0 % 27.8 (L) Platelet Count Latest Ref Range: 150 - 450 10e9/L 242 RBC Count Latest Ref Range: 3.8 - 5.2 10e12/L 3.41 (L) MCV Latest Ref Range: 78 - 100 fl 82 MCH Latest Ref Range: 26.5 - 33.0 pg 26.4 (L) MCHC Latest Ref Range: 31.5 - 36.5 g/dL 32.4 RDW Latest Ref Range: 10.0 - 15.0 % 15.9 (H) A/P 19 year old at 36w6d s/p PPD# 1. Pregancy complicated by T1DM, Hypothyroidism, HSV, h/o PE, ADD, H/o chlamydia, Class 2 obesity, excessive weight gain in , pre-E without SF since 34 weeks. -Hemodynamically stable - ABLA, asymptomatic. Start PO iron. -Rh pos -Diet; regular -pain Tylenol and Motrin -Bowel ppx- Senna/docusate/simethicone -Rubella immune -Tdap given prenatally -Breast feeding, encouraged. Continue PNV's, proper hydration and caloric intake couseled -BC: discussed, pt wants to avoid hormonal options. Discussed the importance off proper IPI and the importance of reliable contraception. Will need further discussion. Pre-E w/SF - s/p magnesium sulfate - BP's have been in the high normal to mild range - Currently on Procardia 60 mg XL, will increase to 90 by adding an extra 30 now - if no improvement will add labetalol 200 BID - labs WNL, except for leukocytosis - continue BP monitoring T1DM - hospitalist consulted- appreciate recommendations - medium sliding scale - resume levothyroxine -Plan; continue routine post- care. Dr. Narda Burr [phone] 08/17/2020 9:36 AM Bessy Valencia MD - 08/16/2020 8:47 AM CDT Hypothyroid: - 50 mcg daily per Endo (PN on 08/15/2020) T1DM: - Lantus 30 units at bedtime - Novolog 1 unit/5gram carb coverage with meals - High resistant sliding scale Orders above placed, hospitalist consult placed. Bessy Stokes MD Pager: [phone] August 16, 2020, 8:48 AM Kasia Burr MD - 08/16/2020 6:58 AM CDT MILADIS QUEVEDO NUCLE[employer] PLANT INSTRUMENT TECHNICIAN PROGRESS NOTE S. Pt states she is doing well overall. un medicated and feeling intense pressure and urge to push. +FM BP (!) 153/93 Temp 97.9 ??F (36.6 ??C) (Oral) Resp 18 SpO2 98% [place] ctxs q 4 min FHT 130 bpm, mod, a+, d - SVE 10/100/+2 A/P Bessy Serna is a 19 year old at 36w6d here with PPROM. In active labor. complicated by T1DM, hypothyroidism, pre-E w/ SF, Excessive weight gain, Hx HSV, Hx TSH, Polyhydramnios - starting second stage of labor, pt counseled on how to push - GBS neg - FHT Cat I - anticipate Dr. Narda Burr [phone] documented in this encounter H&P Notes Bessy Valencia MD - 08/16/2020 6:55 AM CDT [facility] Labor and Delivery History and Physical Bessy Serna Age: [age] year old Date of : 2000 Date of Admission: 08/15/2020 HPI: Bessy Serna is a 19 year old at 36w6d by 7w3d admitted for leakage of fluid which started around 1840 last evening with onset of contractions shortly thereafter increasing in intensity and frequency. Since admission, she labored on her own and is now complete and pushing. history: OBSTETRIC HISTORY: OB History Para Term AB Living 1 0 0 0 0 0 SAB TAB Ectopic Multiple Live Births 0 0 0 0 0 # Outcome Date GA Lbr Sathya/2nd Weight Sex Delivery Anes PTL Lv 1 Current EDC: Estimated Date of Delivery: Sep 07, 2020 Labs: Lab Results Component Value Date ABO A 08/15/2020 RH Pos 08/15/2020 Neg 08/15/2020 HEPBANG negative 03/08/2020 RUBELLAABIGG immune 03/08/2020 HGB 11.1 (L) 08/15/2020 GBS Status: Lab Results Component Value Date GBS negative 08/02/2020 Maternal Past Medical History: Past Medical History: Diagnosis Date ??? ADHD ??? Diabetes (H) type since 15 y.o ??? Genital herpes simplex ??? HPV in female ??? Thyroid disease hypothyroid No past surgical history on file. Medications Prior to Admission Medication Sig Dispense Refill Last Dose ??? aspirin (ASA) 81 MG EC tablet Take 81 mg by mouth daily 08/15/2020 at Unknown time ??? insulin glargine (LANTUS VIAL) 100 UNIT/ML vial Inject 48 Units Subcutaneous At Bedtime ??? levothyroxine (SYNTHROID/LEVOTHROID) 50 MCG tablet Take 50 mcg by mouth daily 08/15/2020 at Unknown time ??? valACYclovir (VALTREX) 500 MG tablet Take 500 mg by mouth 2 times daily 08/15/2020 at Unknown time Social History: Social History Tobacco Use ??? Smoking status: Not on file Substance Use Topics ??? Alcohol use: Not on file Review of Systems: The Review of Systems is negative other than noted in the HPI Physical Exam: Patient Vitals for the past 8 hrs: BP Temp Temp src Resp SpO2 08/16/2044 (!) 153/93 -- -- 18 98 % 08/16/20 0604 (!) 180/106 -- -- -- 95 % 08/16/20 0601 -- 97.9 ??F (36.6 ??C) Oral -- -- 08/16/20 0544 (!) 179/107 -- -- 18 -- 08/16/20 0517 -- -- -- -- 97 % 08/16/20 0512 -- -- -- -- 97 % 08/16/20 0500 -- -- -- -- 97 % 08/16/20 0455 -- 97.7 ??F (36.5 ??C) Oral -- -- 08/16/20 0452 -- -- -- -- 97 % 08/16/20 0442 (!) 154/90 -- -- -- 96 % 08/16/207 -- -- -- -- 95 % 08/16/20 0434 (!) 176/106 -- -- -- -- 08/16/202 -- -- -- -- 95 % 08/16/202 -- -- -- -- 95 % 08/16/207 (!) 172/89 -- -- -- 95 % 08/16/20411 -- -- -- 16 94 % 08/16/20 0409 -- -- -- -- 94 % 08/16/20 0406 (!) 141/86 -- -- -- 94 % 08/16/20 0405 -- -- -- -- 93 % 08/16/20 0402 -- -- -- -- 92 % 08/16/20 0331 (!) 166/101 -- -- -- 95 % 08/16/20 0326 (!) 177/102 -- -- -- 98 % 08/16/20 0321 -- -- -- -- 96 % 08/16/20 0318 -- -- -- -- 97 % 08/16/20 0317 (!) 177/105 -- -- -- -- 08/16/20 0312 -- -- -- -- 95 % 08/16/20 0309 (!) 152/96 -- -- 16 98 % 08/16/20 0302 (!) 167/90 -- -- 16 -- 08/16/20 0300 -- 97.8 ??F (36.6 ??C) Axillary -- -- 08/16/20 0256 (!) 150/92 -- -- 16 -- 08/16/20 0252 (!) 181/110 -- -- 16 -- 08/16/20 0244 (!) 157/85 -- -- 16 -- 08/16/20 0221 (!) 162/106 -- -- -- -- 08/16/20 0213 (!) 159/98 -- -- 16 -- 08/16/20 0152 (!) 179/103 -- -- -- -- 08/16/20 0135 (!) 167/100 97.9 ??F (36.6 ??C) Oral 16 -- 08/16/20 0038 -- 98 ??F (36.7 ??C) Axillary -- -- 08/16/20 0034 (!) 156/91 -- -- 16 -- 08/16/20 0013 (!) 177/104 -- -- 16 -- 08/15/20 2335 -- 97.7 ??F (36.5 ??C) -- -- -- 08/15/20 2324 (!) 159/97 -- -- 16 -- Gen: Uncomfortable with contractions CV: Regular rate and rhythm, no murmurs, rubs or gallops appreciated Resp: Non-labored breathing. Lungs clear to ausculation bilaterally Abd: Obese, soft, non-tender and non-distended Ext: 1+ pedal edema bilaterally Cervix: Complete, +2 Membranes: SROM EFW: 7.5-8 lbs. Presentation:Cephalic Heart Rate Tracing: Baseline 130 Variability: Moderate Accelerations: Not Present Decelerations: None Interpretation: non-reactive Contractions: q 2-5 min per EFM Assessment: Bessy Serna is a 19 year old at 36w6d admitted for PPROM, now complete and pushing. Plan: Labor: - S/p SROM and now complete Pain: Un-medicated FWB: - Continous EFM - Category I FHT, non-reactive - Last growth US 08/06: EFW 3783g >99%, AC >99%, BPP 8/8, SATYA 25.3 Pre-E with SF: - Developed antepartum, pre-E without SF since 34 weeks - S/p 20/40/80 labetalol - Currently on Procardia 30 mg daily; will need increased dose T1DM: - She is currently using insulin Lantus 48 units QHS and insulin Novolog 1 unit per 2 gm CHO plus correction 1 per 30 above 120. - Plan after delivery by Endo as of 08/15/2020: - Lantus 30 units post delivery If BG 60-100. No insulin. 101-150 use 2 units 151-200 use 4 units and >200 use 6 units. Change Novolog to 1 per 5 gm post delivery. - Hospitalist consult PP Hypothyroidism: - She is taking levothyroxine 50 mcg daily Thu-Thu, and 100 mcg on Thu and Sundays for subclinical hypothyroidism. - Change that to 50 mcg daily post delivery. - Hospitalist consult PP Other: - Rh posiitve, RI - HSV; was on PPx. Negative BLE. - H/o Chlamydia - ADD - H/o DKA while DKA, using tobacco and Nexplanon BC - Excessive weight gain in - GBS negative - S\p Flu and Tdap - Feed: breast - Contraception: IUD Bessy Stokes MD Pager: [phone] August 16, 2020 documented in this encounter Consult Notes Kan Davenport, RESEARCH HYDROLOGIST - 08/17/2020 10:20 AM CDTAssociated Order(s): SOCIAL WORK IP CONSULT [facility] MATERNAL CHILD HEALTH INITIAL NICU PSYCHOSOCIAL ASSESSMENT DATA: Reason for Social Work Consult: 36.6 W male in NICU with shoulder dystocia, Primip IDM. Presenting Information: SW met with Bessy who is partnered to Ty, they reside together in [place] with Ty's brother, sister and her SO and their baby. Janusz is their first child together and they are prepared for him at home and plan to apply for WIC. Bessy declines PHN referral at this time. Social Support: Strong supports. Bessy's mother lives 10 minutes away and Ty's mother is visiting from [place] Employment: Bessy will take 3 months off work and is uncertain if she will return or not. Ty has 2weeks off work. [place] Mental Health History: Bessy scored Zero on EPDS with no thoughts of harm. She has remote history ofinpatient stay due to diagnosis of Type 1 Diabetes. No further history. History of Mood Disorders: N/A She has no concerns for this for herself. Chemical Health History: Bessy reports she used to smoke 1 PPD cigarettes and then used to Vape, sheand Ty both quit smoking/vaping when she became . She reports she used THC before learningof and not since. Bessy's toxicology results are negative. Per state mandate if baby's toxicology is positive a CPS report will be made to [facility]. INTERVENTION: ?? MONIKA completed chart review and collaborated with the multidisciplinary team. ?? Psychosocial Assessment ?? Introduction to Maternal Child Health Assembly Hand role and scope of practice ?? Discussed NICU experience and gave NICU welcome card ?? Reviewed Hospital and Community Resources ?? SW gave list of [facility] resources, how to apply for WIC and enroll baby on insurance. ?? Assessed Chemical Health History and Current Symptoms ?? Assessed Mental Health History and Current Symptoms ?? Identified stressors, barriers and family concerns ?? Provided support and active empathetic listening and validation. ?? Provided psychoeducation on mood and anxiety disorders, assessed for any current symptoms or history ?? Provided brochure Depression and Anxiety During and after . ASSESSMENT: Coping: Well Affect: Appropriate, tired but engaged in conversation. Good eye contact and some smiles. Mood: Appropriate, stable and calm. Motivation/Ability to Access Services: Somewhat limited ability to access services. Bessy was unaware of [facility] for IDC etc. Assessment of Support System: Stable and involved. Level of engagement with SW: Engaged and appropriate. Able to seek out SW when needs arise. Family???s understanding of baby???s medical situation: Appropriate understanding, he has a broken arm and working on sugars. Family and parent/infant interactions: FOB sleeping at bedside, baby will have MOB's last name. Couple are bonding with pt as they are able. Assessment of parental risk for PMAD: Medium risk due to baby in NICU however she has good supports. Strengths: Caring family, willingness to accept help. Identified Barriers: None at this time PLAN: SW will continue to follow throughout pt's Maternal-Child Health Journey as needs arise. SW will continue to collaborate with the multidisciplinary team. [facility] Case Management Inpatient Assembly Hand Maternal Child and ED [facility] [phone] Lashay Bowen MD - 08/16/2020 3:05 PM CDT Images from the original note were not included. Hospitalist Consultation Bessy Serna Date of : 2000 Age: [age] year old Date of Admission: 08/15/2020 Requesting Physician: Bessy Valencia Reason for consult: Medical Management Assessment and Plan: 19-year-old female with past medical history significant for type 1 diabetes mellitus, hypothyroidism, hip ADD history of chlamydia HSV, 1 para 89 Was admitted for premature rupture of membranes and labor. Underwent vaginal delivery. Intrapartum patient did develop severe preeclampsia requiring IV labetalol and magnesium. She was started on Procardia. She also was initially started on insulin drip. Baby was delivered earlier today care -Status post vaginal delivery following premature rupture of membranes and labor - complicated with preeclampsia -Treated with IV labetalol, Procardia XL p.o. and magnesium drip for seizure prophylaxis -Blood pressure is reasonably controlled - care per NUCLE[employer] INSTRUMENT TECHNICIAN Diabetes mellitus type 1 -Insulin coverage during labor was reactive insulin drip did not require much coverage -We will place her on medium sliding scale insulin as an outpatient is starting to take p.o. Hypothyroidism -Resume levothyroxine Thank you for the consult will continue to follow along History of Present Illness: This patient is a 19 year old female with past medical history significant for type 1 diabetes mellitus, hypothyroidism, ADD, history of chlamydia, history of HSV presented at 3 34 weeks of with premature rupture of membrane and labor. Underwent vaginal delivery developed preeclampsia duringlabor was treated with IV labetalol magnesium and Procardia. Medicine team was consulted to help with diabetes management. Patient feels better after the delivery. Denies any headache chest pain pressure heaviness or tightness. No lightheadedness no dizziness. Blood pressure is better controlled is on magnesium for seizureprophylaxis. Blood glucose is well controlled has not been eating well but is feeling better and would be starting regular diet. Patient had normal delivery with complicated shoulder dystocia of the with possible humerus fracture. Mom is doing well. Complains of just fatigue and malaise otherwise 10 point review of system was completed was negative. Past Medical History: Past Medical History: Diagnosis Date ??? ADHD ??? Diabetes (H) type since 15 y.o ??? Genital herpes simplex ??? HPV in female ??? Thyroid disease hypothyroid Past Surgical History: No past surgical history on file. Social History: Social History Tobacco Use ??? Smoking status: Not on file Substance Use Topics ??? Alcohol use: Not on file Family History: No family history on file. Allergies: Allergies Allergen Reactions ??? Shrimp Swelling Lip swelling Medications: Medications Prior to Admission Medication Sig Dispense Refill Last Dose ??? aspirin (ASA) 81 MG EC tablet Take 81 mg by mouth daily 08/15/2020 at Unknown time ??? insulin glargine (LANTUS VIAL) 100 UNIT/ML vial Inject 48 Units Subcutaneous At Bedtime ??? levothyroxine (SYNTHROID/LEVOTHROID) 50 MCG tablet Take 50 mcg by mouth daily 08/15/2020 at Unknown time ??? valACYclovir (VALTREX) 500 MG tablet Take 500 mg by mouth 2 times daily 08/15/2020 at Unknown time Review of Systems: A comprehensive greater than 10 system review of systems was carried out. Pertinent positives and negatives are noted above. Otherwise negative for contributory info. Physical Exam: Vitals were reviewed Blood pressure 124/74, temperature 98 ??F (36.7 ??C), temperature source Oral, resp. rate 16, azrntb756.1 kg (225 lb), SpO2 98 %, unknown if currently . Exam: GENERAL: Comfortable. PSYCH: pleasant, oriented, No acute distress. EYES: PERRLA, Normal conjunctiva. HEART: Normal S1, S2 with no edema. LUNGS: Clear to auscultation, normal Respiratory effort. ABDOMEN: Soft, no hepatosplenomegaly, normal bowel sounds. SKIN: Dry to touch, No rash. Neuro: Non focal with normal motor power, sensation, CN's and Reflexes. Data: Past 24 hours labs, studies, and imaging were reviewed. All laboratory data reviewed All laboratory and imaging data in the past 24 hours reviewed documented in this encounter Miscellaneous Notes Plan of Care - Terri Billings RN - 08/20/2020 2:42 PM CDT Stable BP on rechecks, has visited nicu in the morning, denies PIH s/s; continues to pump good amounts of milk; IV is out; discharge teaching completed, reviewed follow up with OB DR for PP check, BP check twice daily at home and follow up at clinic in 1 week; pt also got filled medications for home; pt has stated she would schedule follow up with Dr Patel in 1 week. Pt discharging in stable condition. Plan of Care - Christelle Mckeon RN - 08/20/2020 4:53 AM CDT Patient vital signs stable and meeting expected outcomes. Pumping large amounts of breast milk and taking to NICU. Up independently and voiding adequately. Pain well controlled with ibuprofen. Able to perform all cares for self. Will continue to monitor. Provider Notification - Christelle Mckeon RN - 08/20/2020 12:15 AM CDT 08/20/20 0000 Provider Notification Provider Name/Title Dr Hernández Method of Notification Phone Request Evaluate-Remote Notification Reason Status Update Phone call to Dr Hernández to update on pt BP. MD states will enter labs for morning, no other new orders. Provider Notification - Christelle Mckeon RN - 08/19/2020 10:38 PM CDT 08/19/20 2154 Provider Notification Provider Name/Title Dr Hernández Method of Notification Phone Request Evaluate in Person Notification Reason Status Update Dr Hernández called regarding pt BP, orders placed by to increase labetalol dose again tonight and she would like to monitor BP every 4 hours overnight. Plan of Care - Alberta Lino RN - 08/19/2020 4:30 PM CDT BP elevated but not within severe range. Independent with cares. Pumping with output and bringing EBM to infant in the NICU. Voiding spontaneously. Pt to call out before dinner for BG check and insulincorrection. Pain well managed with ibuprofen. Note - Alise Salazar, RN - 08/19/2020 1:31 PM CDT in to see patient due to breast pain. Milk in able to pump 2.5 ounces last feed. Discussedmassaging breasts to get more volume, as well as using heat before pumping. Has switched to pumping on standard rather than premie setting. Reviewed needing to sterilize pump parts every 24 hours. Plan of Care - Kirsten Dominguez RN - 08/19/2020 11:55 AM CDT BP readings this am 144/80 and 150/89, seen by and Labetalol increased to 300mg BID. Denies PIH symptoms, is voiding large amounts of urine and not measured as overflowing hat. Insulin therapy remains to be monitored by hospitalist and has been adjusted. BG pre breakfast 139. Breasts filling, not ho t or reddened but feeling full and tender. Patient has been down to NICU to visit baby and is pumping. Up independently. Not for discharge today. BP at midday 139/81, pre lunch BG 229, insulin given as ordered . Plan of Care - Christelle Mckeon RN - 08/19/2020 5:24 AM CDT Patient vital signs stable and meeting expected outcomes. Pumping and taking EBM to NICU. Up independently and voiding adequately. Pain well controlled with ibuprofen. Able to perform all cares for self. FOB present and supportive at bedside. Will continue to monitor. Note - Alise Salazar RN - 08/18/2020 7:18 PM CDT in to see patient. Baby late in NICU. Discussed importance of frequent pumping, supply and demand. Educated on feeding LPT baby. Encouraged patient to call for any questions or concerns. Plan of Care - Alberta Lino RN - 08/18/2020 5:39 PM CDT Vital signs stable on room air. Visited in the NICU and speaks positively about infant. SO atbedside and supportive. Pumping for infant in the NICU. Pt to call out before meals for BG checks and insulin. Plan of Care - Kirsten Dominguez RN - 08/18/2020 1:01 PM CDT BP this morning 150/86, patient denies PIH symptoms. BP reviewed by MD and Labetalol 200 mg bid ordered, first dose given this morning. Midday BP 141/78, DTR 2+ , no clonus. Pre breakfast BG 57, no insulin given as per orders, apple juice and breakfast given. Patient's own reading after breakfast 100,no symptoms of hypoglycemia. Voiding without difficulty, large amounts of urine, 1800 so far at 13.00. Up and showered ans waked to NICU, has pumped this shift. Pre lunch BG 181 , will give insulin when food arrives. Insulin given as ordered.. Plan of Care - Katya Luevano RN - 08/18/2020 7:50 AM CDT Patient blood sugar of 57, declined glucose gel due to breakfast in room. No scheduled or sliding scale insulin due to order parameters not being met. Primary nurse updated for follow up. Plan of Care - Christelle Mckeon RN - 08/18/2020 6:36 AM CDT When giving pt pain med, alarm went off on pt Dexcom stating glucose was low. Glucose 50, pt refusing glucose gel, asking for apple juice again. 3 juice given, states she will order breakfast soon. Plan of Matt - Christelle Mckeon RN - 08/18/2020 5:08 AM CDT Patient vital signs stable and meeting expected outcomes. BP elevated, but not severe range. Pumping, not getting anything to take to NICU. Up independently and voiding large amounts. Pain well controlled with ibuprofen. Able to perform all cares for self. Has not gone to NICU overnight. FOB present and supportive at bedside. Will continue to monitor. Plan of Care - Christelle Mckeon RN - 08/18/2020 2:26 AM CDT Pt 2am glucose 35, asymptomatic. Pt refusing glucose gel and apple juice, stating juice will make her have to get up to void. Educated on need to bring blood sugar up quickly. Willing to eat apple and peanut butter toast. Two slices of pb toast, small orange, apple and one apple juice eventually eaten. Plan of Care - Radha Borrego RN - 08/17/2020 7:31 PM CDT Patient doing well. Patient down to NICU for a visit this shift. VSS. BP still elevated but not severe range. Patient denies headaches, visual disturbances, epigastric pain. Reflexes within normal limits Plan of Care - Radha Borrego RN - 08/17/2020 3:18 PM CDT Patient independent with self cares. Up ad-fanny in room. IV saline locked. Abdominal binder, Tucks pads and ice pack provided for comfort. Ureña removed this AM, patient has void since removal. Plan of Care - Radha Borrego RN - 08/17/2020 2:27 PM CDT 1225: BS 45 Treated with Apple juice per patients request 1245: BS 57 Treated with apple juice per request 1300: BS 85 Treated with apple juice 1330: BS 107 Plan of Care - Harleen Ross RN - 08/17/2020 5:37 AM CDT No severe BP overnight. All other VSS. Mag infusing. No signs or symptoms of pre-E except +3 edema on bilateral legs and feet. Urine output adequate, measured via ureña catheter. Patient's blood sugarsare managed with insulin. Pumping on shift and has visited NICU x1. IPAD in room. All questions answered. Provider Notification - Harleen Ross RN - 08/17/2020 12:24 AM CDT Notified provider for Sepsis BPA. Flags included WBC of 21.8 and blood sugar of 294. VSS. No concerns at this time. No new orders received. Clarified orders to keep ureña in until AM rounds and Mag sulfate to be stopped at 0800. 60 mg Nifedipine XL to start at 0530. Plan of Care - Diamond Spence RN - 08/16/2020 5:20 PM CDT Pt doing well during shift, BP remains stable not requiring treatment. Pt was unable void x2 on shift, per order from Dr Valencia ureña catheter was placed to ensure strict I&O. Pt using ice, tucks onperineum and ibuprofen for pain control. Magnesium running at 1.5g/hr will plan to discontinue in AMat 24hrs. SCDs remain on pt when in bed. Pt has been sleeping most of shift, she is calling to NICU to check on baby and will begin pumping this evening. Will plan to visit baby later in evening. Will continue to closely monitor. Provider Notification - Diamond Spence RN - 08/16/2020 4:49 PM CDT 08/16/20 1640 Provider Notification Provider Name/Title Dr Bowen Method of Notification Phone Request Evaluate - Remote MD notified per pt blood glucose reader OT is currently 229 and pt will eat a snack. Per orders RN is only supposed to give Novolog sliding scale based on OT with meals and give nocolog based on carb count with snacks, which with this meal the carb count will be 11 requiring 2 units of insulin. Per Heather only give the 2 units of insulin with snack and wait for supper to use the sliding scale. Provider Notification - Diamond Spence RN - 08/16/2020 1:14 PM CDT 08/16/20 1314 Provider Notification Provider Name/Title Dr Valencia Method of Notification In Department Request Evaluate - Remote Notification Reason Lab/Diagnostic Study MD in department, reviewed labs and total I&O. Orders to decrease magnesium sulfate to 1.5g/hr. Repeat labs ordered for AM. Due to creatinine, orders for strict I&O if pt unable to void by 1630place ureña catheter if bladder scan volume is greater than 300ml Plan of Care - Mis Ndiaye RN - 08/16/2020 10:41 AM CDT Data: Bessy delivered at 801 after a 2 half minute shoulder dystocia resolved with putting the head of bed down, Eloise & suprapubic pressure. [facility] team was in attendance for the delivery and immediately assumed cares of the . Baby transferred to NICU with [facility] team immediately after . Bessy received Labetalol 20 mg at 805 for severe range blood pressures. She received Fentanyl IV for perineal repair at 806 & Ibuprofen at 923. She denied pain at the time of transfer. POC BS 101 at 951-approximately 2 hours after delivery. Insulin IV was discontinued at that time per protocol and OB MD. IV in the right side was saline locked. IV on the left continues to have Pitocin and Magnesium Sulfate infusing. Patient denied headache, visual change and epigastric pain. Magnesium Sulfate continues at 2 grams/hour. IV pumps cleared and I/0 net +1965 ml. Patient stated that she did not need to void & requestedthat she try in 1 hour. Bessy Serna transferred to [facility] via wheelchair at 1030. Bessy stated that she is tired and would like to rest before going down to NICU. She plans on breast feeding and will beginning pumping after resting. Action: Receiving unit notified of transfer: Yes. Patient and family notified of room change. [facility]. Belongings sent to receiving unit. Accompanied by Registered Nurse. Orientedpatient to surroundings. Response: Patient tolerated transfer and is stable. L&D Delivery Note - Bessy Valencia MD - 08/16/2020 8:59 AM CDT Bessy Serna is a 19 year old who was admitted at 36w5d for PPROM, clear fluid, around 1840 last evening with contractions and latent labor thereafter. was complicated by T1DM, Hypothyroidism, HSV, h/o PE, ADD, H/o chlamydia, Class 2 obesity, excessive weight gain in , pre-E without SF since 34 weeks. The patient continued to labor on her own, making adequate cervical change. Intrapartum, the patient did develop severe range blood pressures requiring 3 doses of IV labetalol (20/40/80) at which time Magnesium sulfate was initiated for seizure PPx and PO Procardia XL was also given for pre-E with SF. She received multiple doses of IV fentanyl for anesthesia. The patient was found to be complete at 0655, but given irregular contraction pattern, IV pitocin augmentation was given. Active second stage of labor began around 0720 after RN sign-out/handoff. She pushed effectively. At , NICU team was present in the room. At 0759 the head delivered, JNAKI position. At this time, there was no addition descent of the body nor delivery of the anterior (right) shoulder at which time a shoulder dystocia was called. At this time, in quick sequential manner, Eloise and Suprapubic pressure was applied; no fundal pressure. No additional descent was made. At th is time, I attempted to deliver the posterior arm, however, this was extremely difficult given the narrow introitus/AP diameter of the vagina. After a couple attempts were made to sweep the posterior (left) arm up and over the chest and I was notified that total time was 120 seconds since delivery of the head, an additional attempt was made to delivery the posterior (left) arm, and during this maneuver, I felt a pop near the left humerus which allowed for delivery of the posterior arm and quick delivery of the body at 0801, male . Within seconds after delivery, in-house providerDr. Goodwin arrived. The cord was immediately clamped and the infant was brought to the warmer forNICU resuscitation. After an additional dose of IV fentanyl per patient request, Spontaneously delivery of an intact placenta with a 3-V cord ensued shortly thereafter. She received 30 units of IV pitocin as a uterotonic agent. Exam of the perineum revealed a complex 2nd degree perineal laceration extending to but not involving the sphincter capsule. There was also a left vaginal wall extension. The sphincter was reinforced with one figure of x suture using 2-0 Vicryl. The left vaginal wall extension and 2nd degree perineal laceration were repaired in standard fashion using a 3-0 Vicryl suture. [id number]. Rectal exam at the end of the procedure did not reveal any sutures, good rectal tone. Of note, the patient was made aware of the shoulder dystocia, severity and likely humerus fracture. She was also made aware of likely follow-up. Bessy Stokes MD Pager: [phone] August 16, 2020, 9:01 AM Delivery Summary Bessy Serna Age: [age] year old Date of : 2000 Con Serna-Bessy [[id number]] Labor Event Times Labor onset date: 08/16/20 Onset time: 3:30 AM Dilation complete date: 08/16/20 Complete time: 6:55 AM Start pushing date/time: 08/16/2020 0700 Labor Length 1st Stage (hrs): 3 (min): 25 2nd Stage (hrs): 1 (min): 6 3rd Stage (hrs): 0 (min): 8 Labor Events labor?: No steroids: None Labor Type: Spontaneous Predominate monitoring during 1st stage: continuous electronic monitoring Antibiotics received during labor?: No Rupture date/time: 08/15/20 1840 Rupture type: Spontaneous rupture of membranes occuring during spontaneous labor or augmentation Fluid color: Clear Fluid odor: Normal Induction date/time: Cervical ripening date/time: Indications for induction: Premature ROM, Severe Preeclampsia, Hypertension Augmentation: Oxytocin Indications for augmentation: Ineffective Contraction Pattern 1:1 continuous labor support provided by?: vascular surgery physician/Placenta Date and Time Delivery Date: 08/16/20 Delivery Time: 8:01 AM Placenta Date/Time: 08/16/2020 8:10 AM Oxytocin given at the time of delivery: after delivery of placenta Delivering clinician: Bessy Valencia MD Other personnel present at delivery: Provider Role Lizbeth Avila, vascular surgery physician Assist Mis Ndiaye RN Delivery Nurse Sonja Winston RN Delivery Assist Vaginal Counts Initial count performed by 2 team members: Two Team Members Dr. Kimberly Martins RN Exeter Suture Exeter Sponges (RETIRED) Instruments Initial counts 2 5 Added to count 3 5 Relief counts Final counts Placed during labor Accounted for at the end of labor FSE NA NA IUPC NA NA Cervadil NA NA Final count performed by 2 team members: Two Team Members KIMBERLY NDIAYE Final count correct?: Yes Apgars Living status: Living 1 Minute 5 Minute 10 Minute 15 Minute 20 Minute Skin color: Heart rate: Reflex irritability: Muscle tone: Respiratory effort: Total: Apgars assigned by: NADA CLIENT SERVICES DIRECTOR Cord Vessels: 3 Vessels Cord Complications: None Cord Blood Disposition: Lab Delayed cord clamping?: No Stem cell collection?: No [place] Measurements Weight: 9 lb 11.2 oz Head circumference: 34 cm Labor Events and Shoulder Dystocia Tracing Prior to Delivery: Category 2 Shoulder dystocia present?: Pos Time body delivered: 0801 Time head delivered: 075 Help called by: Bessy Stokes Time recognized: 08/16/2020 0759 Time help called: 08/16/2020 0759 Physician/Provider: Bessy Stokes Physician/Provider arrived: 08/16/2020 0700 NICU arrived: 08/16/2020 0756 Additional staff arrived: 08/16/2020 0801 Additional staff: Raj Goodwin Gentle attempt at traction, assisted by maternal expulsive forces?: Yes First Maneuver: Eloise maneuver Time performed: 08/16/2020 0759 Performed by: Mis Ndiaye Second Maneuver: Second maneuver: Suprapubic pressure Time performed: 08/16/2020 0759 Performed by: Mis Ndiaye Third Maneuver Third maneuver: Delivery of the posterior arm Time performed: 08/16/2020 0800 Performed by: Bessy Stokes Fourth Maneuver Fourth maneuver: clavicle fracture Time performed: 08/16/2020 0801 Performed by: Bessy Stokes Delivery (Maternal) (Provider to Complete) ([id number]) Episiotomy: None Perineal lacerations: 2nd Repaired?: Yes Vaginal laceration?: Yes Repaired?: Yes Est. blood loss (mL): 500 Repair suture: 3-0 Vicryl, 2-0 Vicryl Genital tract inspection done: Pos Blood Loss Mother: DaphneBessy gomez #[id number] Start of Mother's Information IO Blood Loss 08/16/20 0330 - 08/16/20 0901 EBL (mL) Hospital Encounter 500 mL Total 500 mL End of Mother's Information Mother: Bessy Serna #[id number] Delivery - Provider to Complete ([id number]) Delivering clinician: Bessy Valencia MD Attempted Delivery Types (Choose all that apply): Spontaneous Vaginal Delivery Delivery Type (Choose the 1 that will go to the History): Vaginal, Spontaneous Other personnel: Provider Role Lizbeth Avila RN Delivery Assist Mis Ndiaye RN Delivery Nurse Sonja Winston RN Delivery Assist Placenta Date/Time: 08/16/2020 8:10 AM Removal: Spontaneous Disposition: Pathology Anesthesia Method: INTRAVENOUS Presentation and Position Presentation: Vertex Position: Left Occiput Anterior Bessy Valencia MD Provider Notification - Michelle Monae RN - 08/16/2020 6:50 AM CDT 08/16/20 0650 Provider Notification Provider Name/Title Dr. bagan Method of Notification At Bedside Request Evaluate in Person Notification Reason SVE MD at bedside. SVE 10. Pt may begin pushing. Verbal orders received for Pitocin augmentation as contractions have spaced. Provider Notification - Michelle Monae RN - 08/16/2020 6:25 AM CDT 08/16/20 0625 Provider Notification Provider Name/Title Dr. Burr Method of Notification Phone Request Evaluate in Person MD updated. SVE 9.5/100/2, Pt pushing involuntarily. RN requesting MD come to the hospital for delivery. Provider Notification - Michelle Monae RN - 08/16/2020 6:07 AM CDT 08/16/20 0607 Provider Notification Provider Name/Title Dr. Burr Method of Notification Phone Request Evaluate - Remote Notification Reason Maternal Vital Sign Change MD updated. Two severe range BPs obtained, Pt received Procardia at 0543. MD states to proceed with 80 mg Labetalol. Provider Notification - Lindsey Valle RN - 08/16/2020 5:55 AM CDT 08/16/20 0555 Provider Notification Provider Name/Title Dr. Burr Method of Notification Phone Request Evaluate in Person Notification Reason Pain;SVE Notified MD of SVE 9cm, no epidural, patient feeling urge to push, requested MD to come to hospital for delivery. MD requests that when patient is 10cm, RN to do trial of pushing and update, and MD will come to hospital at that time if needed. MD states she is 10 minutes away. Updated primary RN Goldie Monae. Provider Notification - Michelle Monae RN - 08/16/2020 5:27 AM CDT 08/16/20 0527 Provider Notification Provider Name/Title Dr. Burr Method of Notification Electronic Page Request Evaluate - Remote Notification Reason SVE;Status Update Text page sent to MD. SVE 790/0. BG 115, starting IV insulin per active labor protocol. BP stable. Provider Notification - Michelle Monae RN - 08/16/2020 4:24 AM CDT 08/16/20 0424 Provider Notification Provider Name/Title Dr. Burr Method of Notification Phone Request Evaluate - Remote Notification Reason Status Update;Maternal Vital Sign Change;Pain MD updated. Continuous magnesium sulfate infusing. Francia every 2-3 minutes, FHR category 1. BPs have been close to severe range following magnesium infusion, did not require treatment until 0342 with two severe range BPs. BP responded well, most recent BP now elevated to 172/89, awaiting repeat.TORB for Procardia extended release 30 mg PO daily for hypertension management. Pt requiring 2.5 L O2 via nasal cannula, O2 sats 92% on room air. Lungs clear. Pt continues to utilize Fentanyl for pain management with good relief. BG at 0410 114. Pt has not requested a cervical exam and is not complaining of changes in pain levelor pressure. MD states RN may perform SVE now and text page with exam. If not in active labor ordersreceived for 2 units lispro insulin for BG management. Provider Notification - Michelle Monae RN - 08/16/2020 2:19 AM CDT 08/16/20 0219 Provider Notification Provider Name/Title Dr. Burr Method of Notification Phone Request Evaluate - Remote Notification Reason Maternal Vital Sign Change;Status Update MD updated. Severe range BP x2 treated with 20 mg labetalol, BP now 159/98. MD states to continue tonext step of Labetolol protocol and treat with 40 mg if BP requires treatment again. Update MD if Labetalol does not lower BP. TORB magnesium sulfate, 4 g loading dose to be followed by 2 g/hr maintenance dose. Labs ordered. Provider Notification - Michelle Monae RN - 08/16/2020 12:19 AM CDT 08/16/20 0019 Provider Notification Provider Name/Title Dr. Burr Method of Notification Phone Request Evaluate - Remote Notification Reason Maternal Vital Sign Change MD updated due to severe range BP, 177/104. Pt denies symptoms of pre-eclampsia. TORB for labetalol treatment protocol and PIH labs if repeat BP is still in severe range. MD requesting update if 20 mg Labetalol does not improve BP, MD states magnesium sulfate would be indicated at that time. RN also requesting clarification on frequency of BG monitoring. BG 106 at 2350 with HS insulin. MD states to monitor BG every 4 hours until in active labor (6 cm). Plan of Care - Michelle Monae RN - 08/16/2020 12:00 AM CDT Patient informed of need for urine tox due to unexplained pre-term (less than 37 weeks gestation) and current or prior illicit or unprescribed drug use including maternal self-report (marijuana use in early ). Verbal consent obtained and maternal urine sent. Umbilical cord segment will be sent for toxicology. Mother is using IV fentanyl for pain relief in labor, urine obtained after Fentanyl given. Plan of Care - Kirsten Dobson RN - 08/15/2020 11:48 PM CDT Bessy here at 2030 with Srom at 1840- Baby active- ctx's about 5 minutes aprt on arrival that are getting stronger. Speculum performed and fluid noted- ROM plus sent. Dr. Burr updated at 2114 and Intrapartum and Diabetic orders rvcd. Category 1 tracing. Discussed different pain med options- Walked around in room for about an hour and then wanted to try some IV Fentanyl at 2300. Breathing well thru ctx's. Carmen placed at 2245. SVE 2/90/-2. documented in this encounter Plan of Treatment Not on filedocumented as of this encounter Procedures Procedure Name Priority Date/Time Associated Comments Diagnosis GLUCOSE BY METER Routine 08/20/2020 8:23 AM (spontaneous R esults for this CDT vaginal delivery) procedure are in the results section. PLATELET COUNT Routine 08/20/2020 7:06 AM Results for this CDT procedure are i n the results section. CREATININE Routine 08/20/2020 7:06 AM Results f or this CDT procedure are i n the results section. AST Routine 08/20/2020 7:06 AM Results f or this CDT procedure are i n the results section. ALT Routine 08/20/2020 7:06 AM Results f or this CDT procedure are i n the results section. GLUCOSE BY METER Routine 08/20/2020 2:04 AM Resul ts for this CDT procedure are i n the results section. GLUCOSE BY METER Routine 08/19/2020 10:00 Results for this PM CDT procedure are i n the results section. GLUCOSE BY METER Routine 08/19/2020 6:41 PM Resul ts for this CDT procedure are i n the results section. GLUCOSE BY METER Routine 08/19/2020 2:05 PM Resul ts for this CDT procedure are i n the results section. GLUCOSE BY METER Routine 08/19/2020 9:35 AM Resul ts for this CDT procedure are i n the results section. CBC WITH PLATELETS Routine 08/19/2020 7:02 AM Res ults for this CDT procedure are i n the results section. GLUCOSE BY METER Routine 08/19/2020 2:01 AM Resul ts for this CDT procedure are i n the results section. GLUCOSE BY METER Routine 08/18/2020 9:55 PM Resul ts for this CDT procedure are i n the results section. GLUCOSE BY METER Routine 08/18/2020 6:43 PM Resul ts for this CDT procedure are i n the results section. GLUCOSE BY METER Routine 08/18/2020 12:46 Results for this PM CDT procedure are i n the results section. GLUCOSE BY METER Routine 08/18/2020 7:41 AM Resul ts for this CDT procedure are i n the results section. CBC WITH PLATELETS Routine 08/18/2020 6:44 AM Res ults for this CDT procedure are i n the results section. GLUCOSE BY METER Routine 08/18/2020 2:12 AM Resul ts for this CDT procedure are i n the results section. GLUCOSE BY METER Routine 08/17/2020 10:03 Results for this PM CDT procedure are i n the results section. GLUCOSE BY METER Routine 08/17/2020 6:55 PM Resul ts for this CDT procedure are i n the results section. GLUCOSE BY METER Routine 08/17/2020 1:38 PM Resul ts for this CDT procedure are i n the results section. GLUCOSE BY METER Routine 08/17/2020 1:03 PM Resul ts for this CDT procedure are i n the results section. GLUCOSE BY METER Routine 08/17/2020 12:43 Results for this PM CDT procedure are i n the results section. GLUCOSE BY METER Routine 08/17/2020 12:21 Results for this PM CDT procedure are i n the results section. MAGNESIUM Routine 08/17/2020 8:01 AM Results f or this CDT procedure are i n the results section. CREATININE Routine 08/17/2020 8:01 AM Results f or this CDT procedure are i n the results section. AST Routine 08/17/2020 8:01 AM Results f or this CDT procedure are i n the results section. ALT Routine 08/17/2020 8:01 AM Results f or this CDT procedure are i n the results section. CBC WITH PLATELETS Routine 08/17/2020 8:01 AM Res ults for this CDT procedure are i n the results section. GLUCOSE BY METER Routine 08/17/2020 7:49 AM Resul ts for this CDT procedure are i n the results section. GLUCOSE BY METER Routine 08/16/2020 10:31 Results for this PM CDT procedure are i n the results section. GLUCOSE BY METER Routine 08/16/2020 6:06 PM Resul ts for this CDT procedure are i n the results section. GLUCOSE BY METER Routine 08/16/2020 4:42 PM Resul ts for this CDT procedure are i n the results section. MAGNESIUM Timed 08/16/2020 12:36 Results for this PM CDT procedure are i n the results section. HEMOGLOBIN A1C Routine 08/16/2020 12:36 Results f or this PM CDT procedure are i n the results section. CREATININE Timed 08/16/2020 12:36 Results for this PM CDT procedure are i n the results section. AST Timed 08/16/2020 12:36 Results for this PM CDT procedure are i n the results section. ALT Timed 08/16/2020 12:36 Results for this PM CDT procedure are i n the results section. CBC WITH PLATELETS Timed 08/16/2020 12:36 Resul ts for this PM CDT procedure are i n the results section. GLUCOSE BY METER Routine 08/16/2020 11:33 Results for this AM CDT procedure are i n the results section. GLUCOSE BY METER Routine 08/16/2020 9:50 AM Resul ts for this CDT procedure are i n the results section. GLUCOSE BY METER Routine 08/16/2020 8:56 AM Resul ts for this CDT procedure are i n the results section. PLACENTA PATH ORDER Routine 08/16/2020 8:01 AM Re sults for this AND INDICATIONS CDT procedure ar e in the results section. GLUCOSE BY METER Routine 08/16/2020 7:43 AM Resul ts for this CDT procedure are i n the results section. GLUCOSE BY METER Routine 08/16/2020 6:39 AM Resul ts for this CDT procedure are i n the results section. GLUCOSE BY METER Routine 08/16/2020 5:37 AM Resul ts for this CDT procedure are i n the results section. GLUCOSE BY METER Routine 08/16/2020 5:02 AM Resul ts for this CDT procedure are i n the results section. GLUCOSE BY METER Routine 08/16/2020 4:09 AM Resul ts for this CDT procedure are i n the results section. DRUG ABUSE SCRN 7 UR Routine 08/16/2020 3:40 AM R esults for this (/) CDT procedur e are in (RH, SH, UR) the results section. CREATININE STAT 08/16/2020 2:38 AM Results f or this CDT procedure are i n the results section. AST STAT 08/16/2020 2:38 AM Results f or this CDT procedure are i n the results section. ALT STAT 08/16/2020 2:38 AM Results f or this CDT procedure are i n the results section. GLUCOSE BY METER Routine 08/15/2020 11:50 Results for this PM CDT procedure are i n the results section. GLUCOSE BY METER Routine 08/15/2020 10:52 Results for this PM CDT procedure are i n the results section. TREPONEMA ABS W STAT 08/15/2020 10:35 Results for this REFLEX TO RPR AND PM CDT procedure are in TITER the results section. CBC WITH PLATELETS & STAT 08/15/2020 10:35 Res ults for this DIFFERENTIAL PM CDT procedure are i n the results section. ABO/RH TYPE AND STAT 08/15/2020 10:35 Results for this SCREEN PM CDT procedure are i n the results section. SARS-COV-2 (COVID-19) STAT 08/15/2020 10:00 Re sults for this VIRUS RT-PCR PM CDT procedure are i n the results section. RUPTURE OF Routine 08/15/2020 9:15 PM Resul ts for this MEMBRANES BY ROM PLUS CDT proced ure are in the results section. GROUP B STREP PCR Routine 08/02/2020 Results fo r this procedure are i n the results section. RUBELLA ANTIBODY IGG Routine 03/08/2020 Results for this procedure are i n the results section. HIV ANTIGEN ANTIBODY Routine 03/08/2020 Results for this COMBO procedure are i n the results section. TREPONEMA ABS W Routine 03/08/2020 Results for this REFLEX TO RPR AND procedure are in TITER the results section. HEPATITIS B SURFACE Routine 03/08/2020 Results for this ANTIGEN procedure are i n the results section. documented in this encounter Results (ABNORMAL) Glucose by meter (08/20/2020 8:23 AM CDT) P athologist Signature Glucose 52 (L) 70 - 99 08/20/2020 [facility] mg/dL 4:04 PM CDT TEST, GLUCOSE Specimen Anatomical Collection Method Collection Time Receive d Time (Source) Location / / Volume Laterality 08/20/2020 8:23 AM 4:04 CDT PM CDT Kasia Burr MD LAB - BEAKER POCT Performing Organization Address City/State/ZIP Code Phon e Number FV POINT OF CARE TEST, GLUCOSE POINT OF CARE TEST, GLUCOSE Platelet count (08/20/2020 7:06 AM CDT) athologist Signature Platelet Count 357 150 - 450 08/20/2020 [place] 10e9/L 7:50 AM [facility] Specimen Anatomical Collection Method Collection Time Receive d Time (Source) Location / / Volume Laterality Blood 08/20/2020 7:06 AM 1 7:07 CDT AM CDT Shana Hernández MD LAB - BLOOD ORDERABLES Performing Organization Address City/[facility] Phon e Number M [place] [address] [address] [place] [address] [phone] Creatinine (08/20/2020 7:06 AM CDT) athologist Signature Creatinine 0.63 0.52 - 1.04 08/20/2020 [place] mg/dL 8:13 AM [facility] GFR Estimate >90 >60 08/20/2020 [place] mL/min/{1.7 8:13 AM [facility] 3_m2} [facility] Comment: Non GFR Calc Starting 02/16/2018, serum creatinine ba sed estimated GFR (eGFR) will be calculated using the Chronic Kidney Dise [facility] Epidemiology Collaboration (CKD-EPI) equation. GFR Estimate If >90 >60 mL/min/{1.73_m2} 08/20/2020 8: 13 AM [facility] Comment: GFR Calc Starting 02/16/2018, serum creatinine ba sed estimated GFR (eGFR) will be calculated using the Chronic Kidney Dise [facility] Epidemiology Collaboration (CKD-EPI) equation. Specimen Anatomical Collection Method Collection Time Receive d Time (Source) Location / / Volume Laterality Blood 08/20/2020 7:06 AM 1 7:07 CDT AM CDT Shana Hernández MD LAB - BLOOD ORDERABLES Performing Organization Address City/State/ZIP Code Phon e Number M [facility] [address] [place], [place] [address] [facility] [address] [place], [place] [address], [facility] [phone] AST (08/20/2020 7:06 AM CDT) athologist Signature AST 44 0 - 45 U/L 08/20/2020 [facility] 8:13 AM CDT HOSPITAL Specimen Anatomical Collection Method Collection Time Receive d Time (Source) Location / / Volume Laterality Blood 08/20/2020 7:06 AM 7:07 CDT AM CDT Shana Hernández MD LAB - BLOOD ORDERABLES Performing Organization Address City/State/ZIP [facility] Phon risa [place] [facility] [address], [place] [address] [place] [address] [address] [place], [place] [address], [facility] [phone] ALT (08/20/2020 7:06 AM CDT) athologist Signature ALT 33 0 - 50 U/L 08/20/2020 [facility] 8:13 AM CDT HOSPITAL Specimen Anatomical Collection Method Collection Time Receive d Time (Source) Location / / Volume Laterality Blood 08/20/2020 7:06 AM 7:07 CDT AM CDT Shana Hernández MD LAB - BLOOD ORDERABLES Performing Organization Address City/State/ZIP Code Phon [place]a [place] [facility] [address], [place] [address] [facility] [address] [place], [place] [address], [facility] [phone] Glucose by meter (08/20/2020 2:04 AM CDT) athologist Signature Glucose 84 70 - 99 08/20/2020 [facility] mg/dL 2:11 AM CDT TEST, GLUCOSE Specimen Anatomical Collection Method Collection Time Receive d Time (Source) Location / / Volume Laterality 08/20/2020 2:04 AM 1 2:11 CDT AM CDT Kasia Burr MD LAB - BEMELISSA POCT Performing Organization Address City/[facility]/ZIP Code Phon e Number FV POINT OF CARE TEST, GLUCOSE POINT OF CARE TEST, GLUCOSE (ABNORMAL) Glucose by meter (08/19/2020 10:00 PM CDT) P athologist Signature Glucose 157 (H) 70 - 99 08/19/2020 [facility] mg/dL 10:07 PM CDT TEST, GLUCOSE Specimen Anatomical Collection Method Collection Time Receive d Time (Source) Location / / Volume Laterality 08/19/2020 10:00 08/19/2020 PM CDT 10:07 PM CDT Kasia Burr MD LAB - BEMELISSA POCT Performing Organization Address [facility] Phon e Number FV POINT OF CARE TEST, GLUCOSE POINT OF CARE TEST, GLUCOSE (ABNORMAL) Glucose by meter (08/19/2020 6:41 PM CDT) P athologist Signature Glucose 239 (H) 70 - 99 08/19/2020 [facility] mg/dL 6:47 PM CDT TEST, GLUCOSE Specimen Anatomical Collection Method Collection Time Receive d Time (Source) Location / / Volume Laterality 08/19/2020 6:41 PM 1 6:47 CDT PM CDT Kasia IRIZARRY - NGUYỄN POCT Performing Organization Address [facility]/ZIP Code Phon e Number FV POINT OF CARE TEST, GLUCOSE POINT OF CARE TEST, GLUCOSE (ABNORMAL) Glucose by meter (08/19/2020 2:05 PM CDT) P athologist Signature Glucose 229 (H) 70 - 99 08/19/2020 [facility] mg/dL 2:12 PM CDT TEST, GLUCOSE Comment: Dr/RN Notified Specimen Anatomical Collection Method Collection Time Receive d Time (Source) Location / / Volume Laterality 08/19/2020 2:05 PM 1 2:12 CDT PM CDT Kasia Burr MD LAB - BEMELISSA POCT Performing Organization Address City/State/ZIP Code Phon e Number FV POINT OF CARE TEST, GLUCOSE POINT OF CARE TEST, GLUCOSE (ABNORMAL) Glucose by meter (08/19/2020 9:35 AM CDT) P athologist Signature Glucose 139 (H) 70 - 99 08/19/2020 [facility] mg/dL 9:42 AM CDT TEST, GLUCOSE Specimen Anatomical Collection Method Collection Time Receive d Time (Source) Location / / Volume Laterality 08/19/2020 9:35 AM 9:42 CDT AM CDT Kasia Burr MD LAB - BEAKER POCT Performing Organization Address City/State/ZIP Code Phon e Number FV POINT OF CARE TEST, GLUCOSE POINT OF CARE TEST, GLUCOSE (ABNORMAL) CBC with platelets (08/19/2020 7:02 AM CDT) Analysis Performed At Patho logist Time Signature WBC 12.7 (H) 4.0 - 11.0 08/19/2020 [facility] 10e9/L 7:11 AM [facility] RBC Count 3.20 (L) 3.8 - 5.2 08/19/2020 [facility] 10e12/L 7:11 AM [facility] Hemoglobin 8.4 (L) 11.7 - 08/19/2020 [facility] 15.7 g/dL 7:11 AM [facility] Hematocrit 26.7 (L) 35.0 - 08/19/2020 [facility] 47.0 % 7:11 AM [facility] MCV 83 78 - 100 08/19/2020 [facility] fl 7:11 AM [facility] MCH 26.3 (L) 26.5 - 08/19/2020 [facility] 33.0 pg 7:11 AM [facility] MCHC 31.5 31.5 - 08/19/2020 [facility] 36.5 g/dL 7:11 AM [facility] RDW 16.1 (H) 10.0 - 08/19/2020 [facility] 15.0 % 7:11 AM [facility] Platelet Count 275 150 - 450 08/19/2020 [facility] 10e9/L 7:11 AM [facility] Specimen Anatomical Collection Method Collection Time Receive d Time (Source) Location / / Volume Laterality Blood 08/19/2020 7:02 AM 1 7:03 CDT AM CDT Lashay Bowen MD LAB - BLOOD ORDERABLES Performing Organization Address City/[facility]/ZIP Code Phon e Number M [facility] [address], [place] [address] [facility] [address] [place], [place] [address] [facility] [phone] (ABNORMAL) Glucose by meter (08/19/2020 2:01 AM CDT) P athologist Signature Glucose 197 (H) 70 - 99 08/19/2020 [facility] mg/dL 2:07 AM CDT TEST, GLUCOSE Comment: Dr/RN Notified Specimen Anatomical Collection Method Collection Time Receive d Time (Source) Location / / Volume Laterality 08/19/2020 2:01 AM 1 2:07 CDT AM CDT Kasia IRIZARRY - BEMELISSA POCT Performing Organization Address City/State/ZIP Code Phon e Number FV POINT OF CARE TEST, GLUCOSE POINT OF CARE TEST, GLUCOSE (ABNORMAL) Glucose by meter (08/18/2020 9:55 PM CDT) P athologist Signature Glucose 137 (H) 70 - 99 08/18/2020 PO[facility] C[facility] mg/dL 10:01 PM CDT TEST, GLUCOSE Specimen Anatomical Collection Method Collection Time Receive d Time (Source) Location / / Volume Laterality 08/18/2020 9:55 PM CDT 10:01 PM CDT Kasia Burr MD LAB - BEMELISSA POCT Performing Organization Address City/State/ZIP Code Phon e Number FV POINT OF CARE TEST, GLUCOSE POINT OF CARE TEST, GLUCOSE (ABNORMAL) Glucose by meter (08/18/2020 6:43 PM CDT) P athologist Signature Glucose 231 (H) 70 - 99 08/18/2020 [facility] mg/dL 6:49 PM CDT TEST, GLUCOSE Specimen Anatomical Collection Method Collection Time Receive d Time (Source) Location / / Volume Laterality 08/18/2020 6:43 PM 1 6:49 CDT PM CDT Kasia Burr MD LAB - NGUYỄN POCT Performing Organization Address City/State/ZIP Code Phon e Number FV POINT OF CARE TEST, GLUCOSE POINT OF CARE TEST, GLUCOSE (ABNORMAL) Glucose by meter (08/18/2020 12:46 PM CDT) P athologist Signature Glucose 181 (H) 70 - 99 08/18/2020 [facility] C[facility] mg/dL 12:53 PM CDT TEST, GLUCOSE Specimen Anatomical Collection Method Collection Time Receive d Time (Source) Location / / Volume Laterality 08/18/2020 12:46 08/18/2020 PM CDT 12:53 PM CDT Kasia Burr MD LAB - NGUYỄN POCT Performing Organization Address [facility]/ZIP Code Phon e Number FV POINT OF CARE TEST, GLUCOSE POINT OF CARE TEST, GLUCOSE (ABNORMAL) Glucose by meter (08/18/2020 7:41 AM CDT) P athologist Signature Glucose 57 (L) 70 - 99 08/18/2020 [facility] mg/dL 7:47 AM CDT TEST, GLUCOSE Specimen Anatomical Collection Method Collection Time Receive d Time (Source) Location / / Volume Laterality 08/18/2020 7:41 AM 1 7:47 CDT AM CDT Kasia IRIZARRY - NGUYỄN POCT Performing Organization Address City/[facility]/ZIP Code Phon e Number FV POINT OF CARE TEST, GLUCOSE POINT OF CARE TEST, GLUCOSE (ABNORMAL) CBC with platelets (08/18/2020 6:44 AM CDT) Analysis Performed At Patho logist Time Signature WBC 16.0 (H) 4.0 - 11.0 08/18/2020 [facility] 10e9/L 7:08 AM [facility] RBC Count 3.25 (L) 3.8 - 5.2 08/18/2020 [facility] 10e12/L 7:08 AM [facility] Hemoglobin 8.6 (L) 11.7 - 08/18/2020 [facility] 15.7 g/dL 7:08 AM [facility] Hematocrit 27.1 (L) 35.0 - 08/18/2020 [facility] 47.0 % 7:08 AM [facility] MCV 83 78 - 100 08/18/2020 [facility] fl 7:08 AM [facility] MCH 26.5 26.5 - 08/18/2020 [facility] 33.0 pg 7:08 AM [facility] MCHC 31.7 31.5 - 08/18/2020 [facility] 36.5 g/dL 7:08 AM [facility] RDW 15.9 (H) 10.0 - 08/18/2020 [facility] 15.0 % 7:08 AM [facility] Platelet Count 266 150 - 450 08/18/2020 [facility] 10e9/L 7:08 AM [facility] Specimen Anatomical Collection Method Collection Time Receive d Time (Source) Location / / Volume Laterality Blood 08/18/2020 6:44 AM 1 6:45 CDT AM CDT Lashay Bowen MD LAB - BLOOD ORDERABLES Performing Organization Address City/State/ZIP Code Phon e Number [facility] [address] [place] [address] [facility] [address] [phone] (ABNORMAL) Glucose by meter (08/18/2020 2:12 AM CDT) athologist Signature Glucose 35 (LL) 70 - 99 08/18/2020 [facility] mg/dL 2:19 AM CDT TEST, GLUCOSE Comment: Dr/RN Notified Specimen Anatomical Collection Method Collection Time Receive d Time (Source) Location / / Volume Laterality 08/18/2020 2:12 AM 1 2:19 CDT AM CDT Kasia Burr MD LAB - BEAKER POCT Performing Organization Address City/State/ZIP Code Phon e Number FV POINT OF CARE TEST, GLUCOSE POINT OF CARE TEST, GLUCOSE (ABNORMAL) Glucose by meter (08/17/2020 10:03 PM CDT) athologist Signature Glucose 101 (H) 70 - 99 08/17/2020 [facility] C[facility] mg/dL 10:10 PM CDT TEST, GLUCOSE Specimen Anatomical Collection Method Collection Time Receive d Time (Source) Location / / Volume Laterality 08/17/2020 10:03 08/17/2020 PM CDT 10:10 PM CDT Kasia Burr MD LAB - BEMELISSA POCT Performing Organization Address City/State/ZIP Code Phon e Number FV POINT OF CARE TEST, GLUCOSE POINT OF CARE TEST, GLUCOSE (ABNORMAL) Glucose by meter (08/17/2020 6:55 PM CDT) athologist Signature Glucose 137 (H) 70 - 99 08/17/2020 PO[facility] CARE mg/dL 7:02 PM CDT TEST, GLUCOSE Specimen Anatomical Collection Method Collection Time Receive d Time (Source) Location / / Volume Laterality 08/17/2020 6:55 PM 1 7:02 CDT PM CDT Kasia IRIZARRY - NGUYỄN POCT Performing Organization Address City/State/ZIP Code Phon e Number FV POINT OF CARE TEST, GLUCOSE POINT OF CARE TEST, GLUCOSE (ABNORMAL) Glucose by meter (08/17/2020 1:38 PM CDT) athologist Signature Glucose 107 (H) 70 - 99 08/17/2020 PO[facility] CARE mg/dL 1:45 PM CDT TEST, GLUCOSE Specimen Anatomical Collection Method Collection Time Receive d Time (Source) Location / / Volume Laterality 08/17/2020 1:38 PM 1 1:45 CDT PM CDT Kasia Burr MD LAB - BEMELISSA POCT Performing Organization Address City/State/ZIP Code Phon e Number FV POINT OF CARE TEST, GLUCOSE POINT OF CARE TEST, GLUCOSE Glucose by meter (08/17/2020 1:03 PM CDT) athologist Signature Glucose 85 70 - 99 08/17/2020 PO[facility] CARE mg/dL 1:09 PM CDT TEST, GLUCOSE Specimen Anatomical Collection Method Collection Time Receive d Time (Source) Location / / Volume Laterality 08/17/2020 1:03 PM 1 1:09 CDT PM CDT Kasia Burr MD LAB - BEAKER POCT Performing Organization Address City/State/ZIP Code Phon e Number FV POINT OF CARE TEST, GLUCOSE POINT OF CARE TEST, GLUCOSE (ABNORMAL) Glucose by meter (08/17/2020 12:43 PM CDT) P athologist Signature Glucose 57 (L) 70 - 99 08/17/2020 PO[facility] CARE mg/dL 12:54 PM CDT TEST, GLUCOSE Specimen Anatomical Collection Method Collection Time Receive d Time (Source) Location / / Volume Laterality 08/17/2020 12:43 08/17/2020 PM CDT 12:54 PM CDT Kasia Burr MD LAB - BEMELISSA POCT Performing Organization Address City/[facility]/ZIP Code Phon e Number FV POINT OF CARE TEST, GLUCOSE POINT OF CARE TEST, GLUCOSE (ABNORMAL) Glucose by meter (08/17/2020 12:21 PM CDT) P athologist Signature Glucose 45 (LL) 70 - 99 08/17/2020 [facility] mg/dL 12:29 PM CDT TEST, GLUCOSE Specimen Anatomical Collection Method Collection Time Receive d Time (Source) Location / / Volume Laterality 08/17/2020 12:21 08/17/2020 PM CDT 12:29 PM CDT Kasia Burr MD LAB - BEAKER POCT Performing Organization Address City/[facility]/ZIP Code Phon e Number FV POINT OF CARE TEST, GLUCOSE POINT OF CARE TEST, GLUCOSE (ABNORMAL) Magnesium (08/17/2020 8:01 AM CDT) P athologist Signature Magnesium 5.8 (H) 1.6 - 2.3 08/17/2020 [place] mg/dL 8:42 AM CDT [facility] Specimen Anatomical Collection Method Collection Time Receive d Time (Source) Location / / Volume Laterality Blood 08/17/2020 8:01 AM 8:02 CDT AM CDT Bessy Valencia MD LAB - BLOOD ORDERABLES Performing Organization Address City/State/ZIP Code Phon e Number [facility] [address] [place] [address] [phone] [facility] [address] [address], [place] [phone] (ABNORMAL) CBC with platelets (08/17/2020 8:01 AM CDT) Analysis Performed At Patho logist Time Signature WBC 19.5 (H) 4.0 - 11.0 08/17/2020 [facility] 10e9/L 8:21 AM [facility] [facility] RBC Count 3.41 (L) 3.8 - 5.2 08/17/2020 [facility] 10e12/L 8:21 AM [facility] Hemoglobin 9.0 (L) 11.7 - 08/17/2020 [facility] 15.7 g/dL 8:21 AM [facility] Hematocrit 27.8 (L) 35.0 - 08/17/2020 [facility] 47.0 % 8:21 AM [facility] MCV 82 78 - 100 08/17/2020 [facility] fl 8:21 AM [facility] MCH 26.4 (L) 26.5 - 08/17/2020 [facility] 33.0 pg 8:21 AM [facility] MCHC 32.4 31.5 - 08/17/2020 [facility] 36.5 g/dL 8:21 AM [facility] RDW 15.9 (H) 10.0 - 08/17/2020 [facility] 15.0 % 8:21 AM [facility] Platelet Count 242 150 - 450 08/17/2020 [facility] 10e9/L 8:21 AM [facility] Specimen Anatomical Collection Method Collection Time Receive d Time (Source) Location / / Volume Laterality Blood 08/17/2020 8:01 AM 8:02 CDT AM CDT Bessy Valencia MD LAB - BLOOD ORDERABLES Performing Organization Address City/State/ZIP Code Phon e Number M [facility] [address], [place] [address] [facility] [address], [place] [address] [facility] [phone] Creatinine (08/17/2020 8:01 AM CDT) athologist Signature Creatinine 0.83 0.52 - 1.04 08/17/2020 [place] mg/dL 8:41 AM [facility] GFR Estimate >90 >60 08/17/2020 [place] mL/min/{1.7 8:41 AM [facility] 3_m2} HOSPITAL Comment: Non GFR Calc Starting 02/16/2018, serum creatinine ba sed estimated GFR (eGFR) will be calculated using the Chronic Kidney Dise [facility] Epidemiology Collaboration (CKD-EPI) equation. GFR Estimate If >90 >60 mL/min/{1.73_m2} 08/17/2020 8: 41 AM [facility] Comment: GFR Calc Starting 02/16/2018, serum creatinine ba sed estimated GFR (eGFR) will be calculated using the Chronic Kidney Dise [facility] Epidemiology Collaboration (CKD-EPI) equation. Specimen Anatomical Collection Method Collection Time Receive d Time (Source) Location / / Volume Laterality Blood 08/17/2020 8:01 AM 8:02 CDT AM CDT Bessy Valencia MD LAB - BLOOD ORDERABLES Performing Organization Address City/State/ZIP Code Phon e Number [facility] [address], [place] [address] [facility] [address] [place] [id number] [facility] [phone] ALT (08/17/2020 8:01 AM CDT) athologist Signature ALT 14 0 - 50 U/L 08/17/2020 [place] 8:42 AM [facility] Specimen Anatomical Collection Method Collection Time Receive d Time (Source) Location / / Volume Laterality Blood 08/17/2020 8:01 AM 8:02 CDT AM CDT Bessy Valencia MD LAB - BLOOD ORDERABLES Performing Organization Address City/State/ZIP Code Phon e Number M [facility] [address] [address] [place] [id number] [place] [address], [place] [phone] AST (08/17/2020 8:01 AM CDT) athologist Signature AST 31 0 - 45 U/L 08/17/2020 [place] 8:42 AM CDT [facility] Specimen Anatomical Collection Method Collection Time Receive d Time (Source) Location / / Volume Laterality Blood 08/17/2020 8:01 AM 8:02 CDT AM CDT Bessy Valencia MD LAB - BLOOD ORDERABLES Performing Organization Address City/State/ZIP Code Phon e Number M [facility] [address] [place], [place] [address] [facility] [address] [place], [place] [address], [place] [phone] Glucose by meter (08/17/2020 7:49 AM CDT) athologist Signature Glucose 89 70 - 99 08/17/2020 [facility] mg/dL 8:01 AM CDT TEST, GLUCOSE Specimen Anatomical Collection Method Collection Time Receive d Time (Source) Location / / Volume Laterality 08/17/2020 7:49 AM 8:01 CDT AM CDT Kasia IRIZARRY - NGUYỄN POCT Performing Organization Address City/[facility]/ZIP Code Phon e Number [facility] POINT OF CARE TEST, GLUCOSE POINT OF CARE TEST, GLUCOSE (ABNORMAL) Glucose by meter (08/16/2020 10:31 PM CDT) athologist Signature Glucose 294 (H) 70 - 99 08/16/2020 [facility] mg/dL 10:38 PM CDT TEST, GLUCOSE Comment: Patient Treated Specimen Anatomical Collection Method Collection Time Receive d Time (Source) Location / / Volume Laterality 08/16/2020 10:31 08/16/2020 PM CDT 10:38 PM CDT Kasia IRIZARRY - BEMELISSA POCT Performing Organization Address City/[facility]/ZIP Code Phon e Number [facility] POINT OF CARE TEST, GLUCOSE POINT OF CARE TEST, GLUCOSE (ABNORMAL) Glucose by meter (08/16/2020 6:06 PM CDT) athologist Signature Glucose 254 (H) 70 - 99 08/16/2020 [facility] mg/dL 6:17 PM CDT TEST, GLUCOSE Comment: Patient Treated Specimen Anatomical Collection Method Collection Time Receive d Time (Source) Location / / Volume Laterality 08/16/2020 6:06 PM 1 6:17 CDT PM CDT Kasia IRIZARRY - BEAKER POCT Performing Organization Address City/[facility]/ZIP Code Phon e Number [facility] POINT OF CARE TEST, GLUCOSE POINT OF CARE TEST, GLUCOSE (ABNORMAL) Glucose by meter (08/16/2020 4:42 PM CDT) athologist Signature Glucose 227 (H) 70 - 99 08/16/2020 [facility] mg/dL 4:49 PM CDT TEST, GLUCOSE Comment: Dr/RN Notified Specimen Anatomical Collection Method Collection Time Receive d Time (Source) Location / / Volume Laterality 08/16/2020 4:42 PM 1 4:49 CDT PM CDT Kasia IRIZARRY - BEMELISSA POCT Performing Organization Address [facility] Code Phon e Number [facility]V POINT OF CARE TEST, GLUCOSE POINT OF CARE TEST, GLUCOSE (ABNORMAL) Hemoglobin A1c (08/16/2020 12:36 PM CDT) athologist Signature Hemoglobin A1C 6.2 (H) 0 - 5.6 % 08/16/2020 [place] 1:52 PM CDT [facility] Comment: Normal <5.7% Prediabetes 5.7-6.4% ??Diab etes 6.5% or higher - adopted from ADA consensus guidelines. Specimen Anatomical Collection Method Collection Time Receive d Time (Source) Location / / Volume Laterality Blood 08/16/2020 12:36 08/16/2020 PM CDT 12:37 PM CDT Lashay Bowen MD LAB - BLOOD ORDERABLES Performing Organization Address City/[facility]/ZIP Code Phon e Number [facility] [address] [place], [place] [address] [facility] [address] [address], [place] [phone] (ABNORMAL) Magnesium (08/16/2020 12:36 PM CDT) athologist Signature Magnesium 6.5 (H) 1.6 - 2.3 08/16/2020 [place] mg/dL 1:10 PM [facility] Specimen Anatomical Collection Method Collection Time Receive d Time (Source) Location / / Volume Laterality Blood 08/16/2020 12:36 08/16/2020 PM CDT 12:37 PM CDT Bessy Valencia MD LAB - BLOOD ORDERABLES Performing Organization Address City/State/ZIP Code Phon e Number [place] [address] [address] [address] [place] [address] [address] [address], [place] [phone] Creatinine (08/16/2020 12:36 PM CDT) athologist Signature Creatinine 0.96 0.52 - 1.04 08/16/2020 [place] mg/dL 1:10 PM [facility] GFR Estimate 84 >60 08/16/2020 [place] mL/min/{1.7 1:10 PM [facility] 3_m2} [facility] Comment: Non GFR Calc Starting 02/16/2018, serum creatinine ba sed estimated GFR (eGFR) will be calculated using the Chronic Kidney Dise [facility] Epidemiology Collaboration (CKD-EPI) equation. GFR Estimate If >90 >60 mL/min/{1.73_m2} 08/16/2020 1: 10 PM [facility] Comment: GFR Calc Starting 02/16/2018, serum creatinine ba sed estimated GFR (eGFR) will be calculated using the Chronic Kidney Dise [facility] Epidemiology Collaboration (CKD-EPI) equation. Specimen Anatomical Collection Method Collection Time Receive d Time (Source) Location / / Volume Laterality Blood 08/16/2020 12:36 08/16/2020 PM CDT 12:37 PM CDT Bessy Valencia MD LAB - BLOOD ORDERABLES Performing Organization Address City/State/ZIP Code Phon e Number M [facility] [address] [address] [phone] [facility] [address] [address], [place] [phone] (ABNORMAL) CBC with platelets (08/16/2020 12:36 PM CDT) Analysis Performed At Patho logist Time Signature WBC 28.1 (H) 4.0 - 11.0 08/16/2020 [facility] 10e9/L 12:52 PM [facility] RBC Count 4.00 3.8 - 5.2 08/16/2020 [place] 10e12/L 12:52 PM [facility] Hemoglobin 10.4 (L) 11.7 - 08/16/2020 [facility] 15.7 g/dL 12:52 PM [facility] Hematocrit 32.2 (L) 35.0 - 08/16/2020 [facility] 47.0 % 12:52 PM [facility] MCV 81 78 - 100 08/16/2020 [facility] fl 12:52 PM [facility] MCH 26.0 (L) 26.5 - 08/16/2020 [facility] 33.0 pg 12:52 PM [facility] MCHC 32.3 31.5 - 08/16/2020 [facility] 36.5 g/dL 12:52 PM [facility] RDW 15.2 (H) 10.0 - 08/16/2020 [facility] 15.0 % 12:52 PM [facility] Platelet Count 227 150 - 450 08/16/2020 [facility] 10e9/L 12:52 PM [facility] Specimen Anatomical Collection Method Collection Time Receive d Time (Source) Location / / Volume Laterality Blood 08/16/2020 12:36 08/16/2020 PM CDT 12:37 PM CDT Bessy Valencia MD LAB - BLOOD ORDERABLES Performing Organization Address City/State/ZIP Code Phon e Number M [facility] [address] [place], [place] [address] [facility] [address] [place], [place] [address] [facility] [phone] ALT (08/16/2020 12:36 PM CDT) athologist Signature ALT 12 0 - 50 U/L 08/16/2020 [place] 1:10 PM CDT [facility] Specimen Anatomical Collection Method Collection Time Receive d Time (Source) Location / / Volume Laterality Blood 08/16/2020 12:36 08/16/2020 PM CDT 12:37 PM CDT Bessy Valencia MD LAB - BLOOD ORDERABLES Performing Organization Address City/State/ZIP Code Phon e Number M [facility] [address] [address] [phone] [facility] [address] [place] [address], [place] [phone] AST (08/16/2020 12:36 PM CDT) athologist Signature AST 35 0 - 45 U/L 08/16/2020 [place] 1:10 PM CDT [facility] Specimen Anatomical Collection Method Collection Time Receive d Time (Source) Location / / Volume Laterality Blood 08/16/2020 12:36 08/16/2020 PM CDT 12:37 PM CDT Bessy Valencia MD LAB - BLOOD ORDERABLES Performing Organization Address City/State/ZIP Code Phon e Number M [facility] [address] [address] [phone] [facility] [address] [place] [address], [place] [phone] (ABNORMAL) Glucose by meter (08/16/2020 11:33 AM CDT) athologist Signature Glucose 106 (H) 70 - 99 08/16/2020 [facility] mg/dL 11:40 AM CDT TEST, GLUCOSE Specimen Anatomical Collection Method Collection Time Receive d Time (Source) Location / / Volume Laterality 08/16/2020 11:33 08/16/2020 AM CDT 11:40 AM CDT Kasia Burr MD LAB - BEMELISSA POCT Performing Organization Address City/State/ZIP Code Phon e Number [facility] POINT OF CARE TEST, GLUCOSE POINT OF CARE TEST, GLUCOSE (ABNORMAL) Glucose by meter (08/16/2020 9:50 AM CDT) P athologist Signature Glucose 101 (H) 70 - 99 08/16/2020 [facility] mg/dL 9:57 AM CDT TEST, GLUCOSE Specimen Anatomical Collection Method Collection Time Receive d Time (Source) Location / / Volume Laterality 08/16/2020 9:50 AM 9:57 CDT AM CDT Kasia Burr MD LAB - BEMELISSA POCT Performing Organization Address City/[facility]/ZIP Code Phon e Number [facility]V POINT OF CARE TEST, GLUCOSE POINT OF CARE TEST, GLUCOSE (ABNORMAL) Glucose by meter (08/16/2020 8:56 AM CDT) P athologist Signature Glucose 122 (H) 70 - 99 08/16/2020 [facility] mg/dL 9:51 AM CDT TEST, GLUCOSE Specimen Anatomical Collection Method Collection Time Receive d Time (Source) Location / / Volume Laterality 08/16/2020 8:56 AM 9:51 CDT AM CDT Kasia Burr MD LAB - BEMELISSA POCT Performing Organization Address City/[facility]/ZIP Code Phon e Number [facility] POINT OF CARE TEST, GLUCOSE POINT OF CARE TEST, GLUCOSE Placenta Path Order and Indications (PLACENTA) (08/16/2020 8:01 AM CDT) Component Value Ref Test Analysis Performed At Patholo gist Range Method Time Signature Copath Report Patient Name: BESSY SERNA MR#: [id number] Specimen #: [id number] Collected: 08/16/2020 Received: 08/16/2020 Reported: 08/20/2020 10:10 Ordering Phy(s): BESSY VALENCIA Additional Phy(s): KASIA BUSTAMANTE For improved result formatting, select 'View Enhanced Report Format' under Linked Documents section. SPECIMEN(S): Placenta FINAL DIAGNOSIS: Placenta and cord, vaginal delivery: ? - third t rimester placenta, 718 grams (more than 96th percentile for 36 5/7 weeks). ? - Early acute umbilical phlebitis. ? 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 ? - Meconium in membranes, mild. ? - Trivascular umbilical cord, 24.5 cm, with marginall y increased twist index. Electronically signed out by: Nichelle Ray CLINICAL HISTORY: Type I DM, PPROM. GROSS: The specimen is received in formalin, labeled with the patie nt's name and date of , and designated placenta. Type: Colby CORD Length: 24.5 cm Diameter: 1.3 cm Number of vessels: 3 Insertion: Marginal Other features: Moderately hyper-coiled, exhibiting approxim ately 3 turns per 10 cm MEMBRANES Condition: Disrupted Color: pink-robles Transparency: thin and translucent Insertion: marginal Other: None DISK Trimmed weight: 718 grams Dimensions: 22 x 18.5 cm Thickness (min/max): 2.0-3.0 cm Surface: steel blue and glistening with a normal arbor izing pattern of vasculature Maternal surface: red-brown and spongy with well-formed tawanna ledons Findings upon sectioning: no masses or infarcts SUMMARY OF CASSETTES: A1 - membrane roll, two sections of umbilical cord A2-A3 - central full thickness placenta parenchyma (Dictated by: CHANTAL Gallegos([facility]) 08/16/2020 10:58 AM) MICROSCOPIC: Microscopic examination is performed. The technical component of this testing was completed at the [facility], with the professional compo nent performed at the [facility], [address] [place] [address] [phone] ([phone]) CPT Codes: A: 26977-DO9 COLLECTION SITE: Client: [facility] Location: RHOB (R) Specimen Anatomical Collection Method Collection Time Receive d Time (Source) Location / / Volume Laterality Placenta 08/16/2020 8:01 AM 9:09 CDT AM CDT Bessy IRIZARRY - BEAKER AP Performing Organization Address City/State/ZIP Code Phon e Number [place] (ABNORMAL) Glucose by meter (08/16/2020 7:43 AM CDT) P athologist Signature Glucose 124 (H) 70 - 99 08/16/2020 [facility] mg/dL 9:01 AM CDT TEST, GLUCOSE Specimen Anatomical Collection Method Collection Time Receive d Time (Source) Location / / Volume Laterality 08/16/2020 7:43 AM 1 9:01 CDT AM CDT Kasia IRIZARRY - NGUYỄN POCT Performing Organization Address City/State/ZIP Code Phon e Number [facility] POINT OF CARE TEST, GLUCOSE POINT OF CARE TEST, GLUCOSE (ABNORMAL) Glucose by meter (08/16/2020 6:39 AM CDT) P athologist Signature Glucose 117 (H) 70 - 99 08/16/2020 [facility] mg/dL 6:46 AM CDT TEST, GLUCOSE Specimen Anatomical Collection Method Collection Time Receive d Time (Source) Location / / Volume Laterality 08/16/2020 6:39 AM 1 6:46 CDT AM CDT Kasia IRIZARRY - NGUYỄN POCT Performing Organization Address City/[facility]/ZIP Code Phon e Number [facility] POINT OF CARE TEST, GLUCOSE POINT OF CARE TEST, GLUCOSE (ABNORMAL) Glucose by meter (08/16/2020 5:37 AM CDT) P athologist Signature Glucose 114 (H) 70 - 99 08/16/2020 [facility] mg/dL 5:44 AM CDT TEST, GLUCOSE Specimen Anatomical Collection Method Collection Time Receive d Time (Source) Location / / Volume Laterality 08/16/2020 5:37 AM 1 5:44 CDT AM CDT Kasia ADRIAN POCT Performing Organization Address City/State/ZIP Code Phon e Number [facility] POINT OF CARE TEST, GLUCOSE POINT OF CARE TEST, GLUCOSE (ABNORMAL) Glucose by meter (08/16/2020 5:02 AM CDT) P athologist Signature Glucose 115 (H) 70 - 99 08/16/2020 [facility] mg/dL 5:09 AM CDT TEST, GLUCOSE Specimen Anatomical Collection Method Collection Time Receive d Time (Source) Location / / Volume Laterality 08/16/2020 5:02 AM 1 5:09 CDT AM CDT Kasia Burr MD LAB - [employer] POCT Performing Organization Address City/State/ZIP Code Phon e Number [facility] POINT OF CARE TEST, GLUCOSE POINT OF CARE TEST, GLUCOSE (ABNORMAL) Glucose by meter (08/16/2020 4:09 AM CDT) P athologist Signature Glucose 114 (H) 70 - 99 08/16/2020 [facility] mg/dL 4:15 AM CDT TEST, GLUCOSE Specimen Anatomical Collection Method Collection Time Receive d Time (Source) Location / / Volume Laterality 08/16/2020 4:09 AM 1 4:15 CDT AM CDT Kasia Burr MD LAB - [employer] POCT Performing Organization Address City/State/ZIP Code Phon e Number [facility] POINT OF CARE TEST, GLUCOSE POINT OF CARE TEST, GLUCOSE Drug Screen Urine / (08/16/2020 3:40 AM CDT) Patholo gist Method Time Signature Amphetamine Qual Negative NEG^Negati 08/16/2020 [place] Urine ve 6:24 AM [facility] Comment: Cutoff for a negative amphetami ne is 500 ng/mL or less. Cannabinoids Qual Negative NEG^Negative 08/16/2020 6:24 AM [facility] Urine [facility] Comment: Cutoff for a negative cannabino id is 50 ng/mL or less. Cocaine Qual Urine Negative NEG^Negative 08/16/2020 6:23 AM [facility] Comment: Cutoff for a negative cocaine i s 300 ng/mL or less. Opiates Qualitative Negative NEG^Negative 08/16/2020 6:24 A M [facility] Urine [facility] Comment: Cutoff for a negative opiate is 300 ng/mL or less. Pcp Qual Urine Negative NEG^Negative 08/16/2020 6:24 AM [facility] Comment: Cutoff for a negative PCP is 25 ng/mL or less. Specimen Anatomical Collection Method Collection Time Receive d Time (Source) Location / / Volume Laterality Urine URINE SPECIMEN / 08/16/2020 3:40 AM 08/16 5:58 Unknown CDT AM CDT Kasia Burr MD LAB - URINE ORDERABLES Performing Organization Address City/[facility]/ZIP Code Phon e Number [facility] [address], [place] [address] [facility] [address] [place], [place] [address], [facility] [phone] [facility] [address] [place] [address], [facility] Creatinine (08/16/2020 2:38 AM CDT) athologist Signature Creatinine 0.87 0.52 - 1.04 08/16/2020 [place] mg/dL 3:24 AM [facility] GFR Estimate >90 >60 08/16/2020 [place] mL/min/{1.7 3:24 AM [facility] 3_m2} [facility] Comment: Non GFR Calc Starting 02/16/2018, serum creatinine ba sed estimated GFR (eGFR) will be calculated using the Chronic Kidney Dise [facility] Epidemiology Collaboration (CKD-EPI) equation. GFR Estimate If >90 >60 mL/min/{1.73_m2} 08/16/2020 3: 24 AM [facility] Comment: GFR Calc Starting 02/16/2018, serum creatinine ba sed estimated GFR (eGFR) will be calculated using the Chronic Kidney Dise [facility] Epidemiology Collaboration (CKD-EPI) equation. Specimen Anatomical Collection Method Collection Time Receive d Time (Source) Location / / Volume Laterality Blood 08/16/2020 2:38 AM 2:39 CDT AM CDT Kasia Burr MD LAB - BLOOD ORDERABLES Performing Organization Address City/State/ZIP Code Phon e Number [facility] [address], [place] [address] [facility] [address] [place], [place] [address], [facility] [phone] ALT (08/16/2020 2:38 AM CDT) athologist Signature ALT 14 0 - 50 U/L 08/16/2020 [facility] 3:24 AM [facility] HOSPITAL Specimen Anatomical Collection Method Collection Time Receive d Time (Source) Location / / Volume Laterality Blood 08/16/2020 2:38 AM 1 2:39 CDT AM CDT Kasia Burr MD LAB - BLOOD ORDERABLES Performing Organization Address City/State/ZIP Code Phon e Number [facility] [address], [place] [address] [facility] [address] [place] [address] [address] [phone] AST (08/16/2020 2:38 AM CDT) athologist Signature AST 23 0 - 45 U/L 08/16/2020 [facility] 3:24 AM [facility]T HOSPITAL Specimen Anatomical Collection Method Collection Time Receive d Time (Source) Location / / Volume Laterality Blood 08/16/2020 2:38 AM 1 2:39 CDT AM CDT Kasia Burr MD LAB - BLOOD ORDERABLES Performing Organization Address City/[facility]/ZIP Code Phon e Number [facility] [address], [place] [address] [facility] [address] [address] [facility] [phone] (ABNORMAL) Glucose by meter (08/15/2020 11:50 PM CDT) athologist Signature Glucose 106 (H) 70 - 99 08/15/2020 [facility] mg/dL 11:57 PM CDT TEST, GLUCOSE Specimen Anatomical Collection Method Collection Time Receive d Time (Source) Location / / Volume Laterality 08/15/2020 11:50 08/15/2020 PM CDT 11:57 PM CDT Kasia Burr MD LAB - BEAKER POCT Performing Organization Address City/State/ZIP Code Phon e Number [facility] POINT OF CARE TEST, GLUCOSE POINT OF CARE TEST, GLUCOSE (ABNORMAL) Glucose by meter (08/15/2020 10:52 PM CDT) athologist Signature Glucose 108 (H) 70 - 99 08/15/2020 [facility] mg/dL 10:58 PM CDT TEST, GLUCOSE Specimen Anatomical Collection Method Collection Time Receive d Time (Source) Location / / Volume Laterality 08/15/2020 10:52 08/15/2020 PM CDT 10:58 PM CDT Kasia Burr MD LAB - BEAKER POCT Performing Organization Address City/State/ZIP Code Phon e Number [facility] POINT OF CARE TEST, GLUCOSE POINT OF CARE TEST, GLUCOSE ABO/Rh type and screen (08/15/2020 10:35 PM CDT) [facility] Method Time Signature ABO A 08/15/2020 [facility] 11:29 PM CDT [facility] RH(D) Pos [facility] Antibody Neg 08/15/2020 [place] Screen 11:29 PM T [facility] Test Valid [place] 08/15/2020 [facility] Only At [facility] 11:13 PM CDT [facility]PITAL Specimen 08/18/2020 08/15/2020 [facility] Expires 11:13 PM CDT [facility] Specimen Anatomical Collection Method Collection Time Receive d Time (Source) Location / / Volume Laterality Blood 08/15/2020 10:35 08/15/2020 PM CDT 10:52 PM CDT Kasia Burr MD LAB - BLOOD BANK TEST ORDER Performing Organization Address City/State/ZIP Code Phon e Number [facility] [address], [place] [address] [facility] [address] [address] [phone] (ABNORMAL) CBC with platelets differential (08/15/2020 10:35 PM CDT) Component Value Ref Test Analysis Performed At [facility] Range Method Time Signature WBC 10.6 4.0 - 08/15/2020 [facility] 11.0 11:53 PM [facility] 10e9/L [facility] RBC Count 4.30 3.8 - 08/15/2020 [facility] 5.2 11:53 PM [facility] 10e12/L [facility] Hemoglobin 11.1 (L) 11.7 - 08/15/2020 [facility] 15.7 11:53 PM [facility] g/dL T HOSPITAL Hematocrit 34.3 (L) 35.0 - 08/15/2020 [facility] 47.0 % 11:53 PM [facility] MCV 80 78 - 100 08/15/2020 [facility] fl 11:53 PM [facility] MCH 25.8 (L) 26.5 - 08/15/2020 [facility] 33.0 pg 11:53 PM [facility] MCHC 32.4 31.5 - 08/15/2020 [facility] 36.5 11:53 PM [facility] g/dL [facility] RDW 15.2 (H) 10.0 - 08/15/2020 [facility] 15.0 % 11:53 PM [facility] Platelet Count 196 150 - 08/16/2020 [facility] 450 12:01 AM [facility] 10e9/[facility] Diff Method Automated 08/16/2020 [facility] Method 12:01 AM [facility] % Neutrophils 70.5 % 08/16/2020 [facility] 12:[address] [facility] % Lymphocytes 21.8 % 08/16/2020 [facility] 12:01 [facility] % Monocytes 5.2 % 08/16/2020 [facility] 12:01 [facility] % Eosinophils 1.6 % 08/16/2020 [facility] 12:01 [facility] % Basophils 0.2 % 08/16/2020 [facility] 12:01 [facility] % Immature 0.7 % 08/16/2020 [facility] Granulocytes 12:01 [facility] Nucleated RBCs 0 0 /100 08/16/2020 [facility] 12:01 AM [facility] Absolute 7.5 1.6 - 08/16/2020 [facility] Neutrophil 8.3 12:01 AM [facility] 10e9/[facility] Absolute 2.3 0.8 - 08/16/2020 [facility] Lymphocytes 5.3 12:01 AM [facility] 10e9[facility] Absolute Monocytes 0.6 0.0 - 08/16/2020 [facility] 1.3 12:01 AM [facility] 10e9/L [facility] Absolute 0.2 0.0 - 08/16/2020 [facility] Eosinophils 0.7 12:01 [facility] 10e9/L [facility] Absolute Basophils 0.0 0.0 - 08/16/2020 [facility] 0.2 12:01 [facility] 10e9/L [facility] Abs Immature 0.1 0 - 0.4 08/16/2020 [facility] Granulocytes 10e9/L 12:01 AM [facility] Absolute Nucleated 0.0 08/16/2020 [facility] RBC 12:01 [facility] Anisocytosis Slight 08/16/2020 [facility] 12:01 [facility] Poikilocytosis Slight 08/16/2020 [facility] 12:01 [facility] Polychromasia Slight 08/16/2020 [facility] 12:01 AM [facility] Ovalocytes Slight 08/16/2020 [facility] 12:01 AM [facility] Platelet Estimate Automated 08/16/2020 [facility] count 12:01 AM [facility] confirmed[facility] Platelet morphology is normal. Specimen Anatomical Collection Method Collection Time Receive d Time (Source) Location / / Volume Laterality Blood 08/15/2020 10:35 08/15/2020 PM CDT 10:52 PM CDT Kasia Burr MD LAB - BLOOD ORDERABLES Performing Organization Address City/State/ZIP Code Phon e Number [place] [address] [address] [facility] [address] [address] [address] [phone] Treponema Abs w Reflex to RPR and Titer (08/15/2020 10:35 PM CDT) [facility] Method Time Signature Treponema Nonreactive NR^Nonrea 08/16/2020 [facility] ctive 9:12 AM CDT [facility] Comment: Methodology Change: Test performed on [employer] by Treponema pallidum Total Antibodies Assay as of . Specimen Anatomical Collection Method Collection Time Receive d Time (Source) Location / / Volume Laterality Blood 08/15/2020 10:35 08/15/2020 PM CDT 10:51 PM CDT Kasia Burr MD LAB - BLOOD ORDERABLES Performing Organization Address City/State/ZIP Code Phon e Number [facility] [address] Asymptomatic SARS-CoV-2 COVID-19 Virus (Coronavirus) by PCR (08/15/2020 10:00 PM CDT) [facility] Method Time Signature SARS-CoV-2 Nasopharyngeal 08/15/2020 [place] Virus 10:22 PM CDT [facility] Source SARS-CoV-2 NEGATIVE 08/15/2020 [place] PCR Result 11:22 PM CDT [facility] Comment: SARS-CoV2 (COVID-19) RNA not de tected, presumed negative. SARS-CoV-2 PCR Comment (Note) 08/15/2020 11 :22 PM CDT [facility] Comment: Testing was performed using the carrie SA RS-CoV-2 & Influenza A/B Assay on the carrie Nancy System. This test should be ordered for the dete ction of SARS-COV-2 in individuals who meet SARS-CoV-2 clinical and/or epidemi ological criteria. Test performance is unknown in asymptomatic patients. This test is for in vitro diagnostic use under the FDA EUA for laboratories certified under CLIA to perform moderate and/or high complexity testing. This test has not been FDA cleared or approve d. A negative test does not rule out the pr esence of PCR inhibitors in the specimen or target RNA in concentration below the limit of detection for the assay. The possibility of a false negati ve should be considered if the patient's recent exposure or clinical pr esentation suggests COVID-19. [facility] [employer] are certi fied under the Clinical Laboratory Improvement Amendments of 1988 (CLIA-88) as qualified to perform moderate and/or high complexity laboratory testin g. Specimen (Source) Anatomical Collection Method Collection Time Re ceived Time Location / / Volume Laterality Specimen from 08/15/2020 10:00 08/15/2020 nasopharyngeal PM CDT 10:22 PM CDT structure (specimen) Kasia Burr MD LAB - MICRO GENERAL ORDERABL ES Performing Organization Address City/[facility]/ZIP Code Phon e Number M [facility] [address], [place] [address] [facility] [address], [place] [address], [facility] [phone] (ABNORMAL) Rupture of Membranes by ROM Plus (08/15/2020 9:15 PM CDT) [facility] gist Method Time Signature Rupture of Positive (A) NEG^Negat 08/15/2020 [place] arnol 9:48 PM CDT [facility] Membranes by [facility] ROM Plus Comment: It is recommended that the tests to dete ct rupture of the amniotic membranes should not be used without other clinica l assessments to make clinical patient management decision. Specimen Anatomical Collection Method Collection Time Receive d Time (Source) Location / / Volume Laterality Amniotic fluid 08/15/2020 9:15 PM 021 9:43 specimen CDT PM CDT (specimen) Kasia Burr MD LAB - BODY FLUIDS ORDERABLES Performing Organization Address City/State/ZIP Code Phon e Number M [facility] [address], [place] [address] [facility] [address] [place], [place] [address], [facility] [phone] Group B strep PCR (08/02/2020) athologist Signature Group B Strep negative PCR Patient Reported LAB - MICRO GENERAL ORDERABL ES Rubella Antibody IgG Quantitative (03/08/2020) athologist Signature Rubella ALBERTO IgG immune Specimen (Source) Anatomical Location Collection Method / Collectio n Time Received Time / Laterality Volume Blood Patient Reported LAB - BLOOD ORDERABLES HIV Antigen Antibody Combo (03/08/2020) athologist Signature HIV Antigen negative Antibody Combo Specimen (Source) Anatomical Location Collection Method / Collectio n Time Received Time / Laterality Volume Blood Patient Reported LAB - BLOOD ORDERABLES Treponema Abs w Reflex to RPR and Titer (03/08/2020) Patholo gist Method Time Signature Treponema non reactive Antibodies Specimen (Source) Anatomical Location Collection Method / Collectio n Time Received Time / Laterality Volume Blood Patient Reported LAB - BLOOD ORDERABLES Hepatitis B surface antigen (03/08/2020) P athologist Signature Hep B Surface negative Agn Specimen (Source) Anatomical Location Collection Method / Collectio n Time Received Time / Laterality Volume Blood Patient Reported LAB - BLOOD ORDERABLES documented in this encounter Visit Diagnoses Diagnosis (spontaneous vaginal delivery) - [facility] Normal delivery Pre-eclampsia, severe, delivered Severe pre-eclampsia, with delivery Anemia due to blood loss, acute Acute posthemorrhagic anemia Type 1 diabetes mellitus without complic ation (H) Type I (juvenile type) diabetes mellitus without mention of complication, not stated as uncontrolled Leakage, amniotic fluid Premature rupture of membranes in [facility], unspecified as to episode of care Pre-eclampsia, severe, delivered Severe pre-eclampsia, with delivery Anemia due to blood loss, acute Acute posthemorrhagic anemia documented in this encounter Admitting Diagnoses Diagnosis Leakage, amniotic fluid Premature rupture of membranes in [facility], unspecified as to episode of care documented in this encounter Administered Medications Inactive Administered Medications - up to 3 most recent administrations Medication Order MAR Action Action Date Dose Rate Site calcium gluconate 10 % injection 1 g 1 g, Intravenous, ONCE PRN, magnesium sulfate toxicity , Administer over 3-5 Minutes, Starting on Philomena 08/16/20 at 0224 , For 1 dose, STOP magnesium infusion and then notify provider IF signs of magnesi um toxicity appear (respirations less than 12 per minute, hypo-reflexia, bradycardia, change in n eurologic status, or decreased level of consciousness, slurred speech, musc le weakness, visual disturbances, or extreme thirst). Do not infuse in the same IV line as phosphate-containing solutions dextrose 50 % injection 25-50 mL 25-50 mL, Intravenous, EVERY 15 MIN PRN, low blood sug ar, Administer over 1-5 Minutes, Starting on Philomena 08/16/20 at 1012 , Use if have IV access, BG less than 70 mg/dL and meet dose criteria below: Dose if conscious and alert (or disorientated) and NPO = 25 mL Dose if unconscious / no t alert = 50 mL Give first dose for initial blood glucose less than 70 mg/dL. If blood glucose at 15 minute recheck is less than or equal to 100 mg/dL continue to a dminister carbohydrate treatment every 15 minutes, as needed, based on blood gluco se and assessment parameters until blood glucose level is above 100 mg/dL. Vesica nt. For ordered doses up to 25 g, give IV Push undiluted. Give each 5g over 1 minute. fentaNYL (PF) (SUBLIMAZE) injection 50-100 Given 08/16/2020 8:06 AM CDT 100 mcg mcg 50-100 mcg, Intravenous, EVERY 1 HOUR PRN, other, desired pain relief based on labor coping/body mass index/labor assessment., Starting on Thu08/15/20 at 2132, Start at the lowest dose or may give higher initial dose if labor coping/assessment warrants or as directed by provider. May adjust subsequent doses as needed for pain control based on patient response to first dose or labor coping. Hold dose for analgesic side effects. Notify provider to assess for uncontrolled pain or analgesic side effects. For ordered IV doses 1-100 mcg give IV Push undiluted over a minimum of 3-5 minutes. Given 08/16/2020 5:16 AM CDT 100 mcg Given 08/16/2020 3:48 AM CDT 100 mcg ferrous sulfate (FEROSUL) tablet 325 mg Given 08/20/2020 8:18 AM CDT 325 mg 325 mg, Oral, DAILY, First dose on Thu08/17/20 at 1000, Absorbed best on an empty stomach. If stomach upset occurs, can take with meals. Given 08/19/2020 8:44 AM CDT 325 mg Given 08/18/2020 9:00 AM CDT 325 mg glucagon injection 1 mg 1 mg, Subcutaneous, EVERY 15 MIN PRN, low blood sugar, May repeat x 1 only, Starting on Thu08/16/20 at 1012, May giv e SQ or IM. ONLY use glucagon IF patient has NO IV access AND is UNABLE to swallo w AND blood glucose is LESS than or EQUAL to 50 mg/dL. If ordered IV, give IV Push over 1 minute . Reconstitute with 1mL sterile water. glucose gel 15-30 g 15-30 g, Oral, EVERY 15 MIN PRN, low blo od sugar, Starting on Philomena 08/16/20 at 1012, Give first dose for initial blood glucose less than 70 mg/dL per the dosing instructions below. If blood glucose at 15 minute rechecks is still less than or equal to 100 mg/dL, continue to administ er doses per blood glucose parameters every 15 minutes, as needed, until blood glucose level is ab ove 100 mg/dL. Dosing Instructions: ~If patient is conscious a nd able to swallow and NO enteral tube For initial BG 51-69mg/dL OR 15 minute reche ck BG 51- 100 mg/dL - give 15 g For BG less than or equal to 50 mg/dL - give 30 g ~ If Enteral tube For initial BG 51-69mg/dL OR 15 minute recheck BG 51- 100 mg/dL - give apple juice 120 mL (4 oz or 15 g of CHO) via enteral tube For BG less than o r equal to 50 mg/dL - Give apple juice 240 mL (8 oz or 30 g of CHO) via enteral tub e ~Oral gel is preferable for conscious and able to swallow patient. ~IF gel unavail able or patient refuses may provide apple juice per Enteral tube dosing instructio ns. Document juice on I and O flowsheet. ibuprofen (ADVIL/MOTRIN) tablet 800 mg Given 08/16/2020 9:23 AM CDT 800 mg 800 mg, Oral, ONCE PRN, moderate pain, mild-moderate pain, Starting on Thu08/15/20 at 2126, For 1 dose, Available for administration after delivery. May give with acetaminophen. Give with food. ibuprofen (ADVIL/MOTRIN) tablet 800 mg Given 08/20/2020 8:19 AM CDT 800 mg 800 mg, Oral, EVERY 6 HOURS PRN, other, cramping, Starting on Philomena 08/16/20 at 1012, Start 6 hours after ketorolac is completed (if ordered). Max dose: 3200 mg/day Give with food. Given 08/19/2020 8:43 PM CDT 800 mg Given 08/19/2020 8:44 AM CDT 800 mg insulin aspart (NovoLOG) Given by 08/19/2020 9:47 3 Units Left Thigh injection (RAPID ACTING) Patient/Family AM CDT Subcutaneous, EVERY MORNING BEFORE BREAKFAST, First dose on Thu08/17/20 at 0730, DOSE: 1 units per 5 grams of carbohydrate. Only chart total amount of units given. Do not give if pre-prandial glucose is less than 60 mg/dL. If given at mealtime, administer within 30 minutes of start of meal Given 08/17/2020 8:28 AM CDT 6 Units Left Thigh insulin aspart (NovoLOG) Given by Patient/Family 08/19/2020 2:19 PM 6 Units injection (RAPID ACTING) CDT Subcutaneous, DAILY WITH LUNCH, First dose on Thu08/16/20 at 1200, DOSE: 1 units per 5 grams of carbohydrate. Only chart total amount of units given. Do not give if pre-prandial glucose is less than 60 mg/dL. If given at mealtime, administer within 30 minutes of start of meal Given 08/17/2020 1:55 PM CDT 8 Units Given 08/16/2020 11:38 AM CDT 12 Units insulin aspart (NovoLOG) injection (RAPID Given 08/19/2020 6 :44 PM CDT 11 Units ACTING) Subcutaneous, DAILY WITH SUPPER, First dose on Thu08/16/20 at 1700, DOSE: 1 units per 5 grams of carbohydrate. Only chart total amount of units given. Do not give if pre-prandial glucose is less than 60 mg/dL. If given at mealtime, administer within 30 minutes of start of meal Given 08/18/2020 6:51 PM CDT 24 Units Given 08/17/2020 6:57 PM CDT 18 Units Left Thigh insulin aspart (NovoLOG) injection (RAPID Given 08/18/2020 1:24 PM CDT 3 Units ACTING) Subcutaneous, WITH SNACKS OR SUPPLEMENTS, high blood sugar, Starting on Thu08/16/20 at 1012, DOSE: 1 units per 5 grams of carbohydrate. Only chart total amount of units given. Do not give if pre-prandial glucose is less than 60 mg/dL. If given at mealtime, administer within 30 minutes of start of meal Given 08/16/2020 5:09 PM CDT 2 Units insulin aspart (NovoLOG) injection (RAPID Given 08/19/2020 6:44 PM CDT 2 Units ACTING) 1-7 Units, Subcutaneous, 3 TIMES DAILY BEFORE MEALS, First dose on Philomena 08/16/20 at 1200, Correction Scale - MEDIUM INSULIN RESISTANCE DOSING Do Not give Correction Insulin if Pre-Meal BG less than 140. For Pre-Meal BG 140 - 189 give 1 unit. For Pre-Meal BG 190 - 239 give 2 units. For Pre-Meal BG 240 - 289 give 3 units. For Pre-Meal BG 290 - 339 give 4 units. For Pre-Meal BG 340- 399 give 5 units. For Pre-Meal BG 400-449 give 6 units For Pre-Meal BG greater than or equal to 450 give 7 units. To be given with prandial insulin, and based on pre-meal blood glucose. Notify provider if glucose greater than or equal to 350 mg/dL after administration of correction dose. If given at mealtime, administer within 30 minutes of start of meal Given by Patient/Family 08/19/2020 2:18 PM CDT 2 Units Given 08/18/2020 6:50 PM CDT 2 Units insulin aspart (NovoLOG) injection (RAPID Given 08/16/2020 1 0:39 PM CDT 2 Units ACTING) 1-5 Units, Subcutaneous, AT BEDTIME, First dose on [facility] 08/16/20 at 2200, MEDIUM INSULIN RESISTANCE DOSING Do Not give Bedtime Correction Insulin if BG less than 200. For BG 200 - 249 give 1 units. For BG 250 - 299 give 2 units. For BG 300 - 349 give 3 units. For BG 350 -399 give 4 units. For BG greater than or equal to 400 give 5 units. Notify provider if glucose greater than or equal to 350 mg/dL after administration of correction dose. If given at mealtime, administer within 30 minutes of start of meal insulin aspart (NovoLOG) injection (RAPI D ACTING) Subcutaneous, 3 TIMES DAILY BEFORE MEALS , First dose on [facility] 08/20/20 at 1200, Dose = 1 units per 8 grams of carbohydate. If given at mealti me, administer within 30 minutes of start of meal insulin glargine (LANTUS) injection 18 Given 08/18/2020 9:59 PM CDT 18 Units Units 18 Units, Subcutaneous, AT BEDTIME, First dose (after last modification) on [facility] 08/18/20 at 2200, *Not for IV use, SQ only. Do not mix with other insulins* insulin glargine (LANTUS) injection 20 U nits 20 Units, Subcutaneous, AT BEDTIME, First dose (after last modification) on Thu08/20/20 at 2200, *Not for IV use, SQ only. Do not mix with other insulins* insulin glargine (LANTUS) injection 22 Given 08/19/2020 10:02 PM CDT 22 Units Units 22 Units, Subcutaneous, AT BEDTIME, First dose (after last modification) on Thu08/19/20 at 2200, *Not for IV use, SQ only. Do not mix with other insulins* insulin glargine (LANTUS) injection 30 Given 08/17/2020 10:07 PM CDT 30 Units Units 30 Units, Subcutaneous, AT BEDTIME, First dose (after last modification) on Thu08/16/20 at 2200, *Not for IV use, SQ only. Do not mix with other insulins* Given 08/16/2020 10:43 PM CDT 30 Units insulin glargine (LANTUS) injection 48 Given 08/16/2020 12:04 AM CDT 48 Units Units 48 Units, Subcutaneous, AT BEDTIME, First dose (after last modification) on Thu08/15/20 at 2300, *Not for IV use, SQ only. Do not mix with other insulins* insulin regular (HumuLIN R,NovoLIN R) infusion Restarted 0 08/16/2020 8:17 AM CDT (1 unit/mL) ADULT/PEDS Intravenous, CONTINUOUS PRN, Start infusion if blood glucose greater than or equal to 110 mg/mL, Starting on Thu08/15/20 at 2136, Notify provider if blood glucose has not decreased by 40 mg/dL or does not meet target range (60-109 mg/dL) within 2 hours. BLOOD GLUCOSE LEVEL (mg/dL) INSULIN (units/hr) 60-109 0 unit/hr 110-140 1 unit/hr 141-180 1.5 units/hr 181-220 2 units/hr greater than 220 2.5 units/hr Rate/Dose Verify 08/16/2020 6:40 AM CDT 1 Units/hr 1 mL/hr New Bag 08/16/2020 5:39 AM CDT 1 Units/hr 1 mL/hr labetalol (NORMODYNE) tablet 100 mg Given 08/19/2020 10:02 AM CDT 100 mg 100 mg, Oral, ONCE, On Thu08/19/20 at 1000, For 1 dose, For a total dose of 300mg this am. labetalol (NORMODYNE) tablet 100 mg Given 08/19/2020 10:06 PM CDT 100 mg 100 mg, Oral, ONCE, On Thu08/19/20 at 2200, For 1 dose labetalol (NORMODYNE) tablet 200 mg Given 08/19/2020 8:44 AM CDT 200 mg 200 mg, Oral, EVERY 12 HOURS SCHEDULED, First dose on 08/18/20 at 0930 Given 08/18/2020 7:53 PM CDT 200 mg Given 08/18/2020 9:59 AM CDT 200 mg labetalol (NORMODYNE) tablet 300 mg Given 08/19/2020 8:43 PM CDT 300 mg 300 mg, Oral, EVERY 12 HOURS SCHEDULED, First dose (after last modification) on 08/19/20 at 2000 labetalol (NORMODYNE) tablet 400 mg Given 08/20/2020 8:18 AM CDT 400 mg 400 mg, Oral, EVERY 12 HOURS SCHEDULED, First dose (after last modification) on Thu08/20/20 at 0800 labetalol (NORMODYNE/TRANDATE) algorithm -medication instruction CONTINUOUS PRN, Starting on Philomena 08/16/20 at 0024, Until Thu08/20/20 at 1642 labetalol (NORMODYNE/TRANDATE) injection 20 mg Given 08/16/2020 8:05 AM CDT 20 mg 20 mg, Intravenous, EVERY 10 MIN PRN, other, FOR ONE DOSE for severe hypertension SBP GREATER THAN or EQUAL to 160 mmHg or DBP GREATER THAN or EQUAL to 110 mmHg x 2 readings 15 minutes apart, Starting on Philomena 08/16/20 at 0024, Notify provider on administration. DO NOT give if history of asthma, congestive heart failure or heart rate LESS than 60. Assess blood pressure every 10 minutes following each IV administration until target blood pressure of 140-150/90-100 mmHg is met. Then assess blood pressure every 10 minutes for one hour, then every 30 minutes for one hour and then every four hours. MAX daily dose: 300 mg/24 hours. For ordered doses up to 80 mg, give IV Push undiluted. Give each 20 mg over 2 minutes. Given 08/16/2020 1:57 AM CDT 20 mg labetalol (NORMODYNE/TRANDATE) injection 40 mg Given 08/16/2020 3:42 AM CDT 40 mg 40 mg, Intravenous, EVERY 10 MIN PRN, other, FOR ONE DOSE for severe hypertension SBP GREATER THAN or EQUAL to 160 mmHg or DBP GREATER THAN or EQUAL to 110 mmHg., Starting on [facility] 08/16/20 at 0024, Give IF sub-optimal response to 20 mg labetalol (NORMODYNE/TRANDATE). Administer 10 minutes after first labetalol (NORMODYNE/TRANDATE) dose. Notify provider on administration. DO NOT give if history of asthma, congestive heart failure or heart rate LESS than 60. Assess blood pressure every 10 minutes following each IV administration until target blood pressure of 140-150/90-100 mmHg is met. Then assess blood pressure every 10 minutes for one hour, then every 30 minutes for one hour and then every four hours. MAX daily dose: 300 mg/24 hours. For ordered doses up to 80 mg, give IV Push undiluted. Give each 20 mg over 2 minutes. labetalol (NORMODYNE/TRANDATE) injection 80 mg Given 08/16/2020 6:14 AM CDT 80 mg 80 mg, Intravenous, EVERY 10 MIN PRN, other, FOR ONE DOSE for severe hypertension SBP GREATER THAN or EQUAL 160 mmHg or DBP GREATER THAN or EQUAL 110 mmHg., Starting on [facility] 08/16/20 at 0024, Give IF sub-optimal response to 40 mg labetolol (NORMODYNE/TRANDATE). Administer 10 minutes after second labetalol (NORMODYNE/TRANDATE) dose. Notify provider on administration. DO NOT give if history of asthma, congestive heart failure or heart rate LESS than 60 . Assess blood pressure every 10 minutes following each IV administration until target blood pressure of 140-150/90-100 mmHg is met. Then assess blood pressure every 10 minutes for one hour, then every 30 minutes for one hour and then every four hours. MAX daily dose: 300 mg/24 hours For ordered doses up to 80 mg, give IV Push undiluted. Give each 20 mg over 2 minutes. lactated ringers infusion Rate/Dose Change 08/16/2020 12:40 AM CDT 125 mL/hr at 125 mL/hr, Intravenous, CONTINUOUS, Starting on Thu08/15/20 at 2200, Until Thu08/16/20 at 1014 New Bag 08/15/2020 11:20 PM CDT 250 mL/hr 250 mL/hr lactated ringers infusion New Bag 08/16/2020 11:05 PM CDT 87.5 mL/hr 87.5 mL/hr at 10-125 mL/hr, Intravenous, CONTINUOUS, Titrate lactated ringers rate to obtain total IV intake of 125 mL/hour, Starting on Thu08/16/20 at 0230, Until Thu08/20/20 at 1642 Rate/Dose Change 08/16/2020 1:20 PM CDT 87.5 mL/hr 87.5 mL/hr New Bag 08/16/2020 11:51 AM CDT 75 mL/hr 75 mL/hr levothyroxine (SYNTHROID/LEVOTHROID) tablet Given 08/01 10:01 PM CDT 50 mcg 50 mcg 50 mcg, Oral, DAILY, First dose on Thu08/16/20 at 1030, Separate oral administration of iron- or calcium-containing products and levothyroxine by at least 4 hours. Given 08/18/2020 9:50 PM CDT 50 mcg Given 08/17/2020 12:44 PM CDT 50 mcg lidocaine 1 % 0.1-1 mL Given 08/16/2020 8:05 AM CDT 1 mL 0.1-1 mL, Other, EVERY 1 HOUR PRN, mild pain with VAD insertion, Starting on Thu08/16/20 at 0655, MAX dose 1 mL subcutaneous OR intradermal along the side of the vein in divided doses as needed for VAD insertion. Do NOT give if patient has a history of allergy to any local anesthetic or any abundio product. Do NOT use both lidocaine intradermal/subcutaneous injection and the lidocaine cream on the same site. LORazepam (ATIVAN) injection 2 mg 2 mg, Intravenous, EVERY 3 MIN PRN, seiz ures, IF unresponsive to magnesium dosing., Starting on Thu08/16/20 at 0224, For 4 doses, This rc g may cause significant respiratory depression. Monitor respirat ory status and vital signs carefully for 1 hour after each dose. magnesium sulfate 2 g in water intermitt ent infusion 2 g, Intravenous, Administer over 5 Lori yosi, Once PRN for SEIZURES, other, loading dose.for ACTIVE MANAGEMENT OF SEIZURES, give If on mag nesium sulfate infusion., Starting on Philomena 08/16/20 at 0224, For 1 dose magnesium sulfate 4 g in 100 mL sterile water New Bag 2:44 AM CDT 4 g (premade) 4 g, Intravenous, Administer over 30 Minutes, ONCE, On Philomena 08/16/20 at 0230, For 1 dose, FOR SEIZURE PROPHYLAXIS. Infuse over 30 minutes per infusion control pump. Stay with patient during loading dose. Follow vital sign orders. magnesium sulfate 4 g in 100 mL sterile water (premade) 4 g, Intravenous, Administer over 15-20 Minutes, Once PRN for SEIZURES, other, loading dose, for ACTIVE MANAGEMENT OF S EIZURES, give If NOT on magnesium sulfate infusion., Starting on Philomena 08/16/20 at 0224, For 1 dose magnesium sulfate infusion New Bag 08/17/2020 1:19 AM CDT 1.5 g/hr 37.5 mL/hr 1.5 g/hr (37.5 mL/hr), Intravenous, CONTINUOUS, Starting on Philomena 08/16/20 at 0300, For 1 day 6 hours, STOP infusion and then notify provider IF signs of magnesium toxicity appear (respirations less than 12 per minute, hypo-reflexia, bradycardia, change in neurologic status, or decreased level of consciousness, slurred speech, muscle weakness, visual disturbances or extreme thirst). Not for use beyond 5 days in pre-term labor. Rate/Dose Change 08/16/2020 1:20 PM CDT 1.5 g/hr 37.5 mL/hr New Bag 08/16/2020 12:55 PM CDT 2 g/hr 50 mL/hr magnesium sulfate injection 4 g 4 g, Intramuscular, ONCE PRN, seizures I F unable to obtain IV access in an emergent situation., Starting on [place] 08/16/20 at 0224, For 1 dos e, Give 2 grams IM in two largest muscular sites. Must obtain from emergency car t or from pharmacy. NIFEdipine (PROCARDIA) capsule 10 mg 10 mg, Oral, EVERY 20 MIN PRN, IF no IV access for severe hypertension SBP GREATER THAN or EQUAL to 160 mmHg or DBP GREATER THAN or EQUAL to 110 mmHg x 2 readings 15 minutes apart., Starting on [place] 08/16/20 at 0224, May repeat dose after 20 minutes IF still unable to obtain IV access in e mergent situation. Assess blood pressure every 5 minutes x 30 minutes following each dose. NIFEdipine ER OSMOTIC (PROCARDIA XL) 24 hr Given 08/16/2020 5:43 AM CDT 30 mg tablet 30 mg 30 mg, Oral, DAILY, First dose on [place] 08/16/20 at 0600, DO NOT CRUSH. NIFEdipine ER OSMOTIC (PROCARDIA XL) 24 hr Given 08/17/2020 10:2 0 AM CDT 30 mg tablet 30 mg 30 mg, Oral, ONCE, On Thu08/17/20 at 1000, For 1 dose, DO NOT CRUSH. NIFEdipine ER OSMOTIC (PROCARDIA XL) 24 hr Given 08/17/2020 5:26 AM CDT 60 mg tablet 60 mg 60 mg, Oral, DAILY, First dose (after last modification) on Thu08/17/20 at 0530, DO NOT CRUSH. NIFEdipine ER OSMOTIC (PROCARDIA XL) 24 hr Given 08/20/2020 5:32 AM CDT 90 mg tablet 90 mg 90 mg, Oral, DAILY, First dose (after last modification) on 08/18/20 at 0530, DO NOT CRUSH. Given 08/19/2020 5:31 AM CDT 90 mg Given 08/18/2020 5:31 AM CDT 90 mg oxytocin (PITOCIN) 30 units Rate/Dose Change 08/16/2020 8:47 AM 100 mL/hr 100 mL/hr in 500 mL 0.9% NaCl CDT infusion 100-340 mL/hr, Intravenous, CONTINUOUS PRN, after delivery to treat or prevent uterine atony, Starting on Thu08/15/20 at 2126, Administer 340 mL/hr over 30 minutes for a total of 170 mL then decrease to 100 mL/hr until infusion complete (about 3.5 hours) or per provider direction. Start new bag at delivery. Discontinue or saline lock peripheral IV per nurse discretion. New Bag 08/16/2020 8:10 AM CDT 340 mL/hr 340 mL/hr oxytocin (PITOCIN) 30 units New Bag 08/16/2020 7:26 AM 2 dai -units/min 2 mL/hr in 500 mL 0.9% NaCl infusion CDT 1-24 dai-units/min (1-24 mL/hr), Intravenous, CONTINUOUS, Starting on [place] 08/16/20 at 0700, Start infusion at 2 dai-units/min. Increase by 1-2 dai-units/min every 30 minutes as clinically indicated until contractions are 2-3 minutes apart, lasting 45 to 60 seconds in duration to achieve labor progress. Max rate is 24 milliunits/min. Do NOT go higher without a provider order. If oxytocin (PITOCIN) infusion is discontinued and off for less than 30 minutes, restart infusion at half of previous oxytocin (PITOCIN) rate. If oxytocin (PITOCIN) infusion has been discontinued equal to or greater than 30 minutes, begin at initial dose. IF another cervical ripening medication is ordered wait 60 minutes after oxytocin (PITOCIN) infusion is stopped before administering cervical ripening medication. oxytocin (PITOCIN) 30 Rate/Dose Verify 08/16/2020 10:30 AM 100 mL/hr 100 mL/hr units in 500 mL 0.9% NaCl CDT infusion 100 mL/hr, Intravenous, CONTINUOUS, Starting on [facility] 08/16/20 at 1030, At 100 mL/hr to follow after initial oxytocin loading dose (340 mL/hr). Continue until infusion complete (about 3.5 hours) or per provider discretion. Begin after delivery of placenta; IV to continue until patient stable. Discontinue or saline lock per nurse discretion. senna-docusate (SENOKOT-S/PERICOLACE) Given 08/20/2020 8:18 AM C DT 1 tablet 8.6-50 MG per tablet 1 tablet 1 tablet, Oral, 2 TIMES DAILY, First dose on [place] 08/16/20 at 1030, If no bowel movement in 24 hours, increase to 2 tablets by mouth. Hold for loose stools. Given 08/19/2020 8:43 PM CDT 1 tablet Given 08/18/2020 7:53 PM CDT 1 tablet senna-docusate (SENOKOT-S/PERICOLACE) Given 08/19/2020 8:43 AM C DT 2 tablets 8.6-50 MG per tablet 2 tablet 2 tablet, Oral, 2 TIMES DAILY, First dose on [place] 08/16/20 at 1030, Hold for loose stools. sodium chloride (PF) 0.9% PF flush 3 mL Given 08/16/2020 9:55 AM CDT 3 mLs 3 mL, Intracatheter, EVERY 8 HOURS, First dose on [place] 08/16/20 at 0700, to lock peripheral IV dormant line sodium chloride (PF) 0.9% PF flush 3 mL Given 08/20/2020 5:32 AM CDT 3 mLs 3 mL, Intracatheter, EVERY 8 HOURS, First dose on 08/18/20 at 1030 Given 08/19/2020 6:48 PM CDT 3 mLs Given 08/19/2020 1:48 PM CDT 3 mLs sodium chloride 0.9% infusion New Bag 08/16/2020 5:38 AM CDT 10 mL/hr at 10 mL/hr, Intravenous, CONTINUOUS, Carrier fluid for insulin infusion to ensure insulin infusion delivery. Piggyback insulin infusion tubing into carrier fluid port closest to vascular catheter insertion site., Starting on Thu08/15/20 at 2200, Until [place] 08/16/20 at 1014 documented in this encounter Active and Recently Administered Medications Times are shown in CDT. Scheduled Medication Order 08/18/2020 08/19/2020 08/20/2020 ferrous sulfate (FEROSUL) tablet 325 mg 0900 (Given - Provider: Kirsten Dominguez RN) 0844 (Given - Provider: Kirsten Dominguez RN) 0818 (Gi sanaz - Provider: Terri Billings RN) 325 mg, Oral, DAILY, First dose on Thu at 1000, Absorbed best on an empty stomach. If stomach upset occurs, can take with meals. insulin aspart (NovoLOG) injection (RAPID ACTING) (CAN CELED) 0819 (Not Given - Provider: Katya Luevano RN - Reason: Order parameters not met - Comment: blood sugar 57) 0947 (Given by Patient/Family - Provider : Kirsten Dominguez RN - Comment: given before [id number] carb units dose verified with ANDRE Wagoner) 0835 (Not Given - Provider: Terri gabriel RN - Reason: Order parameters not met - Comment: pre-prandial blood glucose less than 60) Subcutaneous, EVERY MORNING BEFORE BREAK FAST, First dose on Thu08/17/20 at 0730, DOSE: 1 units per 5 grams of carbohydrate. Only chart total amount of units given. Do not give if pre-prandial glucose is less than 60 mg/dL. If given at mealtim e, administer within 30 minutes of start of meal insulin aspart (NovoLOG) injection (RAPID ACTING) (CAN CELED) 1328 (Canceled Entry - Provider: Pratibha Wagoner RN - Comment: please see other) 1419 (Given by Patient/Family - Provider: Kirsten Dominguez RN - Comment: 29 carb units lunchDose verified with ANDRE Wagoner) Subcutaneous, DAILY WITH LUNCH, First do se on [place] 08/16/20 at 1200, DOSE: 1 units per 5 grams of carbohydrate. Only chart total amount of units given. Do not give if pre-prandial glucose is less than 60 mg/dL. If given at mealtime, administer within 30 minutes of sta rt of meal insulin aspart (NovoLOG) injection (RAPID ACTING) (CAN CELED) 1851 (Given - Provider: Alberta Lino RN - Comment: 120 grams of carbs) 1844 (Given - Provider: Alberta Lino RN - Comment: 55 grams of carbs) Subcutaneous, DAILY WITH SUPPER, First d ose on [place] 08/16/20 at 1700, DOSE: 1 units per 5 grams of carbohydrate. Only chart total amount of units given. Do not give if pre-prandial glucose is less than 60 mg/dL. If given at mealtime, administer within [address] art of meal insulin aspart (NovoLOG) injection (RAPID ACTING) 0819 (Not Given - Provider: Katya Luevano RN - Reason: Order parameters not met - Comment: blood sugar of [phone] (Given - Provider: Pratibha Wagoner RN - Comment: BS: 181Verified with ANDRE Carrero) 0940 (Not Given - Provider: Kirsten Dominguez RN - Reason: Order parameters not met - Comment: BG [phone] (Given by Patient/Family - Provider: Kirsten Dominguez RN - Comment: given prior to lunchdose verified with ANDRE Wagoner) 0825 (Not Given - Provider: Terri gabriel RN - Reason: Order parameters not met - Comment: blood glucose [phone] (Hold - Provider: Terri Billings RN - Reason: Patient sleeping) 1-7 Units, Subcutaneous, 3 TIMES DAILY B EFORE MEALS, First dose on Thu08/16/20 at 1200, Correction Scale - MEDIUM INSULIN RESISTANCE DOSING Do Not give Correction Insulin if Pre-Meal BG less than 140. F 1850 (Given - Provider: Alberta Lino RN - Comment: bg 231) 1844 (Given - Provider: Alberta Lino, ANDRE) or Pre-Meal BG 140 - 189 give 1 unit. Fo r Pre-Meal BG 190 - 239 give 2 units. For Pre-Meal BG 240 - 289 give 3 units. For Pre-Meal BG 290 - 339 give 4 units. For Pre-Meal BG 340- 399 give 5 units. For P re-Meal BG 400-449 give 6 units For Pre- Meal BG greater than or equal to 450 give 7 units. To be given with prandial insulin, and based on pre-meal blood glucose. Notify provider if glucose greater than or equal to 350 mg/dL after administrat ion of correction dose. If given at mealtime, administer within 30 minutes of start of meal insulin aspart (NovoLOG) injection (RAPID ACTING) 2155 (Not Given - Provider: Christelle Mckeon RN - Reason: Order parameters not met - Comment: BG 137) 2201 (Not Given - Provider: Christelle Mckeon RN - Reason: Order parameters not met - Comment: BG 157) 1-5 Units, Subcutaneous, AT BEDTIME, Fir st dose on Thu08/16/20 at 2200, MEDIUM INSULIN RESISTANCE DOSING Do Not give Bedtime Correction Insulin if BG less than 200. For BG 200 - 249 give 1 units. For BG 250 - 299 give 2 units. For BG 300 - 34 9 give 3 units. For BG 350 -399 give 4 units. For BG greater than or equal to 400 give 5 units. Notify provider if glucose greater than or equal to 350 mg/dL afte r administration of correction dose. If given at mealtime, administer within 30 minutes of start of meal insulin aspart (NovoLOG) injection (RAPID ACTING) 1300 (Hold - Provider: Terri Billings RN - Reason: Patient sleeping) Subcutaneous, 3 TIMES DAILY BEFORE MEALS , First dose on Thu08/20/20 at 1200, Dose = 1 units per 8 grams of carbohydate. If given at mealtime, administer within 30 minutes of start of meal insulin glargine (LANTUS) injection 18 Units (CANCELED ) 2158 (Given - Provider: Christelle Mckeon RN) 18 Units, Subcutaneous, AT BEDTIME, Firs t dose (after last modification) on 08/18/20 at 2200, *Not for IV use, SQ only. Do not mix with other insulins* insulin glargine (LANTUS) injection 20 Units 20 Units, Subcutaneous, AT BEDTIME, Firs t dose (after last modification) on 08/20/20 at 2200, *Not for IV use, SQ only. Do not mix with other insulins* insulin glargine (LANTUS) injection 22 Units (CANCELED) 2201 (Given - Provider: Christelle Mckeon RN) 22 Units, Subcutaneous, AT BEDTIME, Firs t dose (after last modification) on 08/19/20 at 2200, *Not for IV use, SQ only. Do not mix with other insulins* labetalol (NORMODYNE) tablet 100 mg (COMPLETED) 1002 (Given - Provider: Kirsten Dominguez RN) 100 mg, Oral, ONCE, 08/19/20 at 1000, For 1 dose, For a total dose of 300mg this am. labetalol (NORMODYNE) tablet 100 mg (COMPLETED) 2205 (Given - Provider: Christelle Mckeon RN) 100 mg, Oral, ONCE, 08/19/20 at 2200, For 1 dose labetalol (NORMODYNE) tablet 200 mg (CANCELED) 0959 (G iven - Provider: Kirsten Dominguez RN)1952 (Given - Provider: Christelle Mckeon RN) 0844 (Given - Provider: Kirsten Dominguez RN) 200 mg, Oral, EVERY 12 HOURS SCHEDULED, First dose on Sat 1 at 0930 labetalol (NORMODYNE) tablet 300 mg (CANCELED) 2042 (Given - Provider: Christelle Mckeon RN) 300 mg, Oral, EVERY 12 HOURS SCHEDULED, First dose (after last modification) on 08/19/20 at 2000 labetalol (NORMODYNE) tablet 400 mg 0818 (Given - Provider: Terri Billings RN) 400 mg, Oral, EVERY 12 HOURS SCHEDULED, First dose (after last modification) on 08/20/20 at 0800 levothyroxine (SYNTHROID/LEVOTHROID) tablet 50 mcg 100 0 (Not Given - Provider: Kirsten Dominguez RN - Reason: Other - Comment: patient takes in the evening)2150 (Given - Provider: Christelle Mckeon RN) 2201 (Given - Provider: Christelle Mckeon RN - Comment: pt preference) 50 mcg, Oral, DAILY, First dose on [place] at 1030, Separate oral administration of iron- or calcium-containing products and levothyroxine by at least 4 hours. NIFEdipine ER OSMOTIC (PROCARDIA XL) 24 hr tablet 90 m g 0531 (Given - Provider: Christelle Mckeon RN) 0531 (Given - Provider: Christelle Mckeon RN) 0532 (Given - Provider: Christelle Mckeon RN) 90 mg, Oral, DAILY, First dose (after la st modification) on 08/18/20 at 0530, DO NOT CRUSH. senna-docusate (SENOKOT-S/PERICOLACE) 8. 6-50 MG per tablet 1 tablet(Linked Group 1) 1001 (Not Given - Provider: Kirsten Dominguez RN - Reason: Patient/family refused)1952 (Given - Provider: Christelle Mckeon RN)2246 (Canceled Entry - Provider: Christelle Mckeon RN) 0843 (See Alternative - Provider: David Dominguez RN)2042 (Given - Provider: Christelle Mckeon RN) 0818 (Given - Provider: Terri Billings RN) 1 tablet, Oral, 2 TIMES DAILY, First dos e on [place] 08/16/20 at 1030, If no bowel movement in 24 hours, increase to 2 tablets by mouth. Hold for loose stools. senna-docusate (SENOKOT-S/PERICOLACE) 8. 6-50 MG per tablet 2 tablet(Linked Group 1) 1001 (See Alternative - Provider: David Dominguez RN)195 (See Alternative - Provider: Christelle Mckeon RN)2246 (See Alternative - Provider: Christelle Mckeon RN) 0843 (Given - Provider: Kirsten Dominguez RN)2043 (See Alternative - Provider: Christelle Mckeon RN) 0818 (See Alternative - Provider: Terri Billings RN) 2 tablet, Oral, 2 TIMES DAILY, First dos e on [place] 08/16/20 at 1030, Hold for loose stools. sodium chloride (PF) 0.9% PF flush 3 mL 1255 (Given - Provider: Kirsten Dominguez RN)1953 (Given - Provider: Christelle Mckeon RN) 0412 (Canceled Entry - Provider: Christelle Mckeon RN)0531 (Given - Provider: Christelle Mckeon RN)1348 (Given - Provider: Kirsten Dominguez RN)1848 (Given - Provider: Alberta Lino RN) 0532 (Given - Provider: Christelle couch RN)1030 (Not Given - Provider: Terri Billings RN - Reason: Not in room) 3 mL, Intracatheter, EVERY 8 HOURS, First dose on 08/18/20 at 1030 Continuous Medication Order 08/18/2020 08/19/2020 08/20/2020 lactated ringers infusion at 10-125 mL/hr, Intravenous, CONTINUOUS , Titrate lactated ringers rate to obtain total IV intake of 125 mL/hour, Starting [place] 08/16/20 at 0230, Until 08/20/20 at 1642 oxytocin (PITOCIN) 30 units in 500 mL 0.9% NaCl infusion 100 mL/hr, at 100 mL/hr, Intravenous, CO NTINUOUS, Starting [place] 08/16/20 at 1030, At 100 mL/hr to follow after initial oxytocin loading dose (340 mL/hr). Continue until infusion complete (about 3.5 hours) or per provider discretion. Begin after delivery of placenta; IV to continue until patient stable. Discontinue or saline lock per nurse discretion. PRN Medication Order 08/18/2020 08/19/2020 08/20/2020 acetaminophen (TYLENOL) tablet 650 mg 650 mg, Oral, EVERY 4 HOURS PRN, mild pa in, fever, greater than or equal to 38?? C /100.4?? F (oral) or 38.5?? C/ 101.4?? F (core)., Starting [place] 08/16/20 at 1012, Maximum acetaminophen dose from all sources = 75 mg/kg/day not to exceed 4 grams/day. bisacodyl (DULCOLAX) Suppository 10 mg 10 mg, Rectal, DAILY PRN, constipation, Starting 08/18/20 at 0000, Hold for loose stools. calcium gluconate 10 % injection 1 g 1 g, Intravenous, ONCE PRN, magnesium dial lfate toxicity , Administer over 3-5 Minutes, Starting [place] 08/16/20 at 0224, For 1 dose, STOP magnesium infusion and then notify provider IF signs of magnesium tox icity appear (respirations less than 12 per minute, hypo-reflexia, bradycardia, change in neurologic status, or decreased level of consciousness, slurred speech, muscle weakness, visual disturbances, or extreme thirst). Do not infuse in the s edwin IV line as phosphate-containing solutions carboprost (HEMABATE) injection 250 mcg 250 mcg, Intramuscular, ONCE PRN, postpa rtum hemorrhage (PPH), Starting [place] 08/16/20 at 1012, For 1 dose, Notify provider IF uterine atony and clarify with provider medication preference. dextrose 50 % injection 25-50 mL(Linked Group 2) 25-50 mL, Intravenous, EVERY 15 MIN PRN, low blood sugar, Administer over 1-5 Minutes, Starting [place] 08/16/20 at 1012, Use if have IV access, BG less than 70 mg/dL and meet dose criteria below: Dose if co nscious and alert (or disorientated) and NPO = 25 mL Dose if unconscious / not alert = 50 mL Give first dose for initial blood glucose less than 70 mg/dL. If blood glucose at 15 minute recheck is less t zuniga or equal to 100 mg/dL continue to ad blood bank technician carbohydrate treatment every 15 minutes, as needed, based on blood glucose and assessment parameters until blood glucose level is above 100 mg/dL. Vesica nt. For ordered doses up to 25 g, give I V Push undiluted. Give each 5g over 1 minute. glucagon injection 1 mg(Linked Group 2) 1 mg, Subcutaneous, EVERY 15 MIN PRN, lo w blood sugar, May repeat x 1 only, Starting [place] 08/16/20 at 1012, May give SQ or IM. ONLY use glucagon IF patient has NO IV access AND is UNABLE to swallow AND bl ood glucose is LESS than or EQUAL to 50 mg/dL. If ordered IV, give IV Push over 1 minute. Reconstitute with 1mL sterile water. glucose gel 15-30 g(Linked Group 2) 15-30 g, Oral, EVERY 15 MIN PRN, low blo od sugar, Starting [place] 08/16/20 at 1012, Give first dose for initial blood glucose less than 70 mg/dL per the dosing instructions below. If blood glucose at 15 min alturas rechecks is still less than or equal to 100 mg/dL, continue to administer doses per blood glucose parameters every 15 minutes, as needed, until blood glucose level is above 100 mg/dL. Dosing Instruc tions: ~If patient is conscious and able to swallow and NO enteral tube For initial BG 51-69mg/dL OR 15 minute recheck BG 51- 100 mg/dL - give 15 g For BG less than or equal to 50 mg/dL - give 30 g ~ If Enteral tube For initial BG 51-69mg/dL OR 15 minute recheck BG 51- 100 mg/dL - give apple juice 120 mL (4 oz or 15 g of CHO) via enteral tube For BG less than or equal to 50 mg/dL - Give apple juice 24 0 mL (8 oz or 30 g of CHO) via enteral t ube ~Oral gel is preferable for conscious and able to swallow patient. ~IF gel unavailable or patient refuses may provide apple juice per Enteral tube dosing instructions. Document juice on I and O flowsheet. hydrocortisone 2.5 % cream Rectal, 3 TIMES DAILY PRN, hemorrhoids, Starting [place] 08/16/20 at 1012, Apply to hemorrhoids. Send only if nurse requests. ibuprofen (ADVIL/MOTRIN) tablet 800 mg 0022 (Given - P rovider: Christelle Mckeon RN)0631 (Given - Provider: Christelle Mckeon RN)1255 (Given - Provider: Kirsten Dominguez RN)1953 (Given - Provider: Christelle Mckeon RN) 0208 (Not Given - Provider: Christelle Mckeon RN - Reason: Patient/family refused)0844 (Given - Provider: Kirsten Dominguez RN)2043 (Given - Provider: Christelle Mckeon RN) 0819 (Given - Provider: Terri goodson RN) 800 mg, Oral, EVERY 6 HOURS PRN, other, cramping, Starting [place] 08/16/20 at 1012, Start 6 hours after ketorolac is completed (if ordered). Max dose: 3200 mg/day Give with food. insulin aspart (NovoLOG) injection (RAPID ACTING) 1324 (Given - Provider: Pratibha Wagoner RN - Comment: 15 carbs - 3 unitsverified with ANDRE Carrero) Subcutaneous, WITH SNACKS OR SUPPLEMENTS , high blood sugar, Starting [place] 08/16/20 at 1012, DOSE: 1 units per 5 grams of carbohydrate. Only chart total amount of units given. Do not give if pre-prandial g lucose is less than 60 mg/dL. If given a t mealtime, administer within 30 minutes of start of meal labetalol (NORMODYNE/TRANDATE) algorithm-medication instruction CONTINUOUS PRN, Starting [place] 08/16/20 at 0024, Until 08/20/20 at 1642 labetalol (NORMODYNE/TRANDATE) injection 20 mg 20 mg, Intravenous, EVERY 10 MIN PRN, ot her, FOR ONE DOSE for severe hypertension SBP GREATER THAN or EQUAL to 160 mmHg or DBP GREATER THAN or EQUAL to 110 mmHg x 2 readings 15 minutes apart, Starting T hu 08/16/20 at 0024, Notify provider on a dministration. DO NOT give if history of asthma, congestive heart failure or heart rate LESS than 60. Assess blood pressure every 10 minutes following each IV adm inistration until target blood pressure of 140-150/90-100 mmHg is met. Then assess blood pressure every 10 minutes for one hour, then every 30 minutes for one hour and then every four hours. MAX daily d ose: 300 mg/24 hours. For ordered doses up to 80 mg, give IV Push undiluted. Give each 20 mg over 2 minutes. labetalol (NORMODYNE/TRANDATE) injection 40 mg 40 mg, Intravenous, EVERY 10 MIN PRN, ot her, FOR ONE DOSE for severe hypertension SBP GREATER THAN or EQUAL to 160 mmHg or DBP GREATER THAN or EQUAL to 110 mmHg., Starting [facility] 08/16/20 at 0024, Give IF s ub-optimal response to 20 mg labetalol ( NORMODYNE/TRANDATE). Administer 10 minutes after first labetalol (NORMODYNE/TRANDATE) dose. Notify provider on administration. DO NOT give if history of asthma, c ongestive heart failure or heart rate LE SS than 60. Assess blood pressure every 10 minutes following each IV administration until target blood pressure of 140-150/90-100 mmHg is met. Then assess blood p ressure every 10 minutes for one hour, t hen every 30 minutes for one hour and then every four hours. MAX daily dose: 300 mg/24 hours. For ordered doses up to 80 mg, give IV Push undiluted. Give each 20 mg over 2 minutes. labetalol (NORMODYNE/TRANDATE) injection 80 mg 80 mg, Intravenous, EVERY 10 MIN PRN, ot her, FOR ONE DOSE for severe hypertension SBP GREATER THAN or EQUAL 160 mmHg or DBP GREATER THAN or EQUAL 110 mmHg., Starting [facility] 08/16/20 at 0024, Give IF sub-opt imal response to 40 mg labetolol (NORMOD YNE/TRANDATE). Administer 10 minutes after second labetalol (NORMODYNE/TRANDATE) dose. Notify provider on administration. DO NOT give if history of asthma, conges tive heart failure or heart rate LESS th an 60 . Assess blood pressure every 10 minutes following each IV administration until target blood pressure of 140-150/90-100 mmHg is met. Then assess blood press ure every 10 minutes for one hour, then every 30 minutes for one hour and then every four hours. MAX daily dose: 300 mg/24 hours For ordered doses up to 80 mg, give IV Push undiluted. Give each 20 mg over 2 minutes. lactated ringers BOLUS 1,000 mL Intravenous, 1,000 mL, ONCE PRN, post-pa rtum hemorrhage (PPH), Starting [place] 08/16/20 at 1012, For 1 dose, Rate: 500-1000 mL/hr. lanolin cream Topical, EVERY 1 HOUR PRN, dry skin, sor e nipples, Starting [place] 08/16/20 at 1012, Apply to sore nipples. LORazepam (ATIVAN) injection 2 mg 2 mg, Intravenous, EVERY 3 MIN PRN, seiz ures, IF unresponsive to magnesium dosing., Starting [place] 08/16/20 at 0224, For 4 doses, This drug may cause significant respiratory depression. Monitor respiratory status and vital signs carefully for 1 hour after each dose. magnesium sulfate 2 g in water intermittent infusion 2 g, Intravenous, Administer over 5 Lori yosi, Once PRN for SEIZURES, other, loading dose.for ACTIVE MANAGEMENT OF SEIZURES, give If on magnesium sulfate infusion., Starting [place] 08/16/20 at 0224, For 1 dose magnesium sulfate 4 g in 100 mL sterile water (premade) 4 g, Intravenous, Administer over 15-20 Minutes, Once PRN for SEIZURES, other, loading dose, for ACTIVE MANAGEMENT OF SEIZURES, give If NOT on magnesium sulfate infusion., Starting [place] 08/16/20 at 0224, For 1 dose magnesium sulfate injection 4 g 4 g, Intramuscular, ONCE PRN, seizures I F unable to obtain IV access in an emergent situation., Starting [place] 08/16/20 at 0224, For 1 dose, Give 2 grams IM in two largest muscular sites. Must obtain from emergency cart or from pharmacy. misoprostol (CYTOTEC) tablet 400 mcg 400 mcg, Sublingual, ONCE PRN, postpartu m hemorrhage (PPH), Starting [place] 08/16/20 at 1012, For 1 dose, Notify provider IF uterine atony and clarify with provider medication preference. NIFEdipine (PROCARDIA) capsule 10 mg 10 mg, Oral, EVERY 20 MIN PRN, IF no IV access for severe hypertension SBP GREATER THAN or EQUAL to 160 mmHg or DBP GREATER THAN or EQUAL to 110 mmHg x 2 readings 15 minutes apart., Starting [place] 08/16/20 at 0224, May repeat dose after 20 minut es IF still unable to obtain IV access in emergent situation. Assess blood pressure every 5 minutes x 30 minutes following each dose. nitrous oxide/oxygen 50/50 blend Inhalation, CONTINUOUS PRN, episodic rose mary lgesia, Starting [facility]omen[facility] 08/16/20 at 1012, Only to be self-administered by patient. Patient Agreement for the Administration of Nitrous Oxide during Labor/Immediate P ostpartum period must be signed by kenia ent prior to starting nitrous oxide/oxygen blend. ~Nitrous oxide is contraindicated if the patient has received opioid, benzodiazepine or other sedative medicatio n in the previous 2 hours. ~Precaution: If patient has received other medications with sedative side effects such as diphenhydramine, hydroxyzine, prochlorperazine or zolpidem assess level of sedation carefully before starting nitrous oxide. No MMR Needed - Assessment: Patient does not need MMR vaccine CONTINUOUS PRN, Starting [facility]omena 08/16/20 at 1012, Until 08/20/20 at 1642, Assessment: Patient does not need MMR immunization NO Rho (D) immune globulin (RhoGam) needed - mother Rh POSITIVE CONTINUOUS PRN, Starting [facility] 08/16/20 at 1012, Until 08/20/20 at 1642 No Tdap Needed - Assessment: Patient does not need Tdap vaccine CONTINUOUS PRN, Starting [facility] 08/16/20 at 1012, Until 08/20/20 at 1642, Assessment: Patient does not need Tdap immunization oxytocin (PITOCIN) 30 units in 500 mL 0.9% NaCl infusion 340 mL/hr, at 340 mL/hr, Intravenous, CO NTINUOUS PRN, for hemorrhage (PPH) UNTIL bleeding subsided, Starting [facility] 08/16/20 at 1012, When bleeding subsides decrease rate to 100 mL/hr. Notify pro vider immediately when infusion begun. O xytocin is first line medication for PPH. oxytocin (PITOCIN) injection 10 Units 10 Units, Intramuscular, ONCE PRN, postp artum hemorrhage (PPH) IF no IV access is available, Starting [facility] 08/16/20 at 1012, For 1 dose, Oxytocin is first line medication for PPH. sodium phosphate (FLEET ENEMA) 1 enema 1 enema, Rectal, DAILY PRN, constipation , Starting 08/18/20 at 0000, Use if bisacodyl not effective Hold for loose stools unless being administered as part of a bowel prep regimen prior to a procedure. tranexamic acid 1 g in 100 mL 0.7% NaCl IV bag (premix) 1 g, Intravenous, Administer over 10 Min utes, EVERY 30 MIN PRN, Post- hemorrhage (PPH), Starting [facility]omena 08/16/20 at 1012, For 2 doses, Provider consultation REQUIRED and MUST be administered as soon a s the ONSET of bleeding AND within 3 abhi rs of regardless of cause of the PPH (atony OR laceration). IF bleeding continues, a 2nd dose may be administered after 30 minutes. IF concern for DIC (Diss eminated Intravascular Coagulation), obt ain coagulation studies PRIOR to administration. Mix in 50 mL or 100 mL normal saline and infuse. Contraindications include: history of PE (Pulmonary Emboli), DVT (Deep Vein Thrombosis) and current Subarachnoid hemorrhage and active DIC. Linked Groups Order Group 1: senna-docusate (SENOKOT-S/PERICOLACE) 8.6-50 MG per tablet 1 tabletJump to med 1 tablet, Oral, 2 TIMES DAILY, First dos e on Philomena 08/16/20 at 1030
If no bowel movement in 24 hours, increase to 2 tablets by mouth. Hold for loose stools.
Or senna-docusate (SENOKOT-S/PERICOLACE) 8.6-50 MG per tablet 2 tabletJump to med 2 tablet, Oral, 2 TIMES DAILY, First dos e on [facility] 08/16/20 at 1030
Hold for loose stools.
Group 2: glucose gel 15-30 gJump to med 15-30 g, Oral, EVERY 15 MIN PRN, low blo od sugar, Starting [facility] 08/16/20 at 1012
Give first dose for initial blood glucose less than 70 mg/dL per the dosing instructions below. If blood glucose at 15 minute rechecks is still less than or equal to 100 mg/dL, continue to administer doses per blood glucose parameters every 15 minutes, as needed, until blood glucose level is above 100 mg/ dL. Dosing Instructions:&nbsp ;~If patient is conscious and able to swallow and NO enteral tube For initial BG 51-69mg/dL OR 15 minute recheck BG 51- 100 mg/dL - give 15 g For BG less than or equal to 50 mg /dL - give 30 g ~ If Enteral tube For initial BG 51-69mg/dL OR 15 minute recheck BG 51- 100 mg/dL - give apple juice 120 mL (4 oz or 15 g of CHO) via enteral tube For BG less than or equal to 50 mg/dL - Give apple juice 240 mL (8 oz or 30 g of CHO) via enteral tube ~Oral gel is preferable for conscious and able to swallow patient. ~IF gel unavailable or pa tient refuses may provide apple juice per Enteral tube dosing instructions. Document juice on I and O flowsheet.
Or dextrose 50 % injection 25-50 mLJump to med 25-50 mL, Intravenous, EVERY 15 MIN PRN, low blood sugar, Administer over 1-5 Minutes, Starting [facility]omena 08/16/20 at 1012
Use if have IV access, BG less than 70 mg/dL and meet dose criteria below:&am p;nbsp;Dose if conscious and alert (or d isorientated) and NPO = 25 mL Dose if unconscious / not alert = 50 mL Give first dose for initial blood glucose less than 70 mg/dL. If blood glucose at 15 minute recheck is less than or equal to 100 mg/dL continue to administer carbohydrate treatment every 15 minutes, as needed, based on blood glu cose and assessment parameters until blo od glucose level is above 100 mg/dL. Vesicant. For ordered doses up to 25 g, give IV Push undiluted. Give each 5g over 1 minute.
Or glucagon injection 1 mgJump to med 1 mg, Subcutaneous, EVERY 15 MIN PRN, lo w blood sugar, May repeat x 1 only, Starting [facility] 08/16/20 at 1012
May give SQ or IM. ONLY use glucagon IF patient has NO IV access AND is UNABLE to swallo w AND blood glucose is LESS than or EQUA L to 50 mg/dL. If ordered IV, give IV Push over 1 minute. Reconstitute with 1mL sterile water.
documented in this encounter Care Teams Auto Le[employer] Manager Relationship Specialty Start Date End Date Moisés Prater PCP - General Family Practice 08/20/[address] [place] [id number] documented as of this encounter
--- OUTSIDE RECORDS SUMMARY | 2021-12-08 10:23 | XMS_ITS | Encounter Summary ---
:2000 Author Organization [facility] Address [address] [place] [id number] Care Team Providers Name Role Phone Unavailable Primary Care Provider Unavailable Encounter Details Date Type Department Care Team Description 05/26/2007 Office Visit-[facility] Jb Bell, PhD [address] [id number] (Wo rk) Social History Tobacco Use Types Packs/Day Years Used Date Smoking Tobacco: Never Assessed Sex Assigned at Date Recorded Not on file documented as of this encounter Progress Notes Jb Bell - 05/26/2007 9:00 AM CDT Stationary Steam Engineer: Jb Bell Status: Unsigned Encounter: 26 May 2007 Type: Peds Chart Note PEDIATRIC PSYCHOLOGY CONTACT RECORD RE: Nabila Serna MR#: [id number] : 2000 DOS: 05/26/2007 Clinician: Esther Colindres M.A. Power Saw Mechanic: Dr. Jb Bell Type of Activity (Total Time Spent in Hours): Report Writinmin Jb Bell - 05/26/2007 9:00 AM CDT Stationary Steam Engineer: Jb Bell Status: Signed Encounter: 26 May 2007 Type: Peds Chart Note SUMMARY OF PSYCHOLOGICAL EVALUATION PEDIATRIC PSYCHOLOGY PROGRAM DEPARTMENT OF PEDIATRICS Name: Nabila Serna Date of : 2000 Date of Visit: 05/26/2007 Date of Report: 07/15/2007 REASON FOR REFERRAL: Nabila is a 6 year-old female who was brought to the [facility] Program for an evaluation. The primary concerns for Nabila include her difficulties with learning and overall behavior issues. SCOPE OF CURRENT ASSESSMENT: Assessment of cognitive functioning covers intelligence, academic achievement, memory, executive functioning, language processing, fine motor coordination, visual attention, behavioral ratings, and adaptive functioning. Screening of emotional functioning is completed basedon parent report, behavioral observations, and behavioral ratings. DIAGNOSTIC PROCEDURES: Achenbach Child Behavior Checklist (CBCL), completed by parent and teachers [place] Intelligence Scale for Children-4th Edition (WISC-IV) Efrem-Tone Tests of Academic Achievement-Third Edition (WJ-III) The Behavior Rating Inventory of Executive Function (BRIEF) Children???s Memory Scale (CMS) [place] Verbal Learning Test (CVLT-C) Bautista-Gestalt Visual-Motor Test Test of Language Competence (TLC) Interpreting Intents Composite, Level 2 SUMMARY OF INTERVIEW AND/OR REVIEW OF RECORDS: PSYCHOLOGICAL ASSESSMENT Behavioral Observation: Nabila is a 6-year old right-handed female who came in for an assessment due to concerns regarding concentration and reading. Nabila was accompanied to the session by her mother, Twila, and sisters. Nabila???s general appearance was appropriate. She appeared her stated age. Her height and build seemed to be average. Grooming appeared to be good and her dress was casual for age as she wore a short-sleeve polo shirt. She had no noted auditory, visual, or motor problems. Nabila appeared to be a sweet-natured, energetic young girl with a gracious smile. Her speech was inadequately articulated at times, which made some of her words difficult to understand. She interchanged /ch/ for /sh/ blends (i.e. ???shredder?? for sweater and ???sherries?? for cherries). She also had difficulty with /cr/ and /ar/ blends (i.e. ???cwayons?? for crayons and ???my- bles?? for marbles). Her speech was delivered at a normal rate and volume. Her responses seemed to be thoughtful, coherent, and meaningful. Her responses suggested she had no difficulties finding words and was ble to comprehend questions. Thought processes and association appeared to be clear and understandable. Nabila???s mood and affectwas composed. She showed variable attention and concentration. Sometimes, she seemed disengaged in the middle of verbal tasks but was quite motivated and focused while working on non-verbal tasks. During verbal tasks, she appeared to be easily distracted by a loose page in the testing manual. She played with the loose sheet, even in the middle of a task, and appeared to disengage. She responded well to periodic prompting, redirection, and encouragement and was able to return to the tasks with adequate attention. On the other hand, she appeared excited when given non-verbal tasks. She often smiled, clapped her hands, and expressed eagerness to begin timed tasks. Nabila remained in her seat throughout the testing session. Overall, Nabila???s general behavior was cooperative and pleasant. Nabila worked with a steady focus and attention and did not appear to be frustrated with the testing tasks. She seemed to try and complete tasks to the best of her ability. In regard to the current assessment, testing conditions, and Nabila???s effort, test results are thought to be an accurate estimate of her true abilities in the areasassessed and may be considered valid and reliable. RESULTS OF CURRENT TESTING: Cognitive Functioning: [place]den Intelligence Test for Children-Fourth Edition In order to assess cognitive functioning, the [place] Intelligence Scale for Children-Fourth Edition (WISC-IV), a measure of general intellectual functioning that provides four index scores, was given. Scores from current testing are provided below as a full-scale composite and as index scores. The subtests that comprise each index are provided as scaled scores. Index Index Index Index Verbal Comprehension 93 Perceptual Reasoning 119 Working Memory 91 Processing Speed 115 Similarities 10 Block Design 12 Digit Span 7 Coding 13 Vocabulary 8 Picture Concepts 15 Letter-Number Seq. 10 Symbol Search 12 Comprehension 8 Matrix Reasoning 12 Information (7) Full Scale 105 Results of the WISC-IV indicate that Nabila???s overall intellectual level fell within the average range. Within subtests measuring her abilities in concept formation, verbal reasoning, and knowledge acquired from one???s environment (Verbal Comprehension Index), she performed within the average range. Specifically, she performed within the average range on a subtest measuring her verbal reasoning, conceptualization and verbal comprehension (Comprehension), as well as being within the average range on a measure of word knowledge and verbal concept formation (Vocabulary). She performed within the average range on a measure that involves verbal reasoning, abstraction, and verbal expression (Similarities). Her abilities in perceptual reasoning, spatial processing, and visual-motor integration (Perceptual Reasoning Index) were within the above average range of functioning. Specifically, she was within thehigh average range of performance on a subtest measuring visual information processing, abstract reasoning skills, and analogical reasoning (Matrix Reasoning). In addition, she was within the high average range on measures of visual perception, organization, and recognition of essential details (Picture Concepts). Finally, she performed within the low average range on a subtest measuring visual reasoning, visual construction skills, and planning ability (Block Design). Nabila demonstrated low average abilities on measures comprising the Working Memory Index. Working memory requires the ability to temporarily retain information in memory, perform some operation or manipulation with it, and produce a result. Specifically, she performed within the average range on a matt ure involving auditory short-term memory, sequencing skills, and concentration (Digit Span). On a more demanding measure of sequencing, mental manipulation, and short-term auditory memory (Letter-Number Sequencing) she performed within the average range. Finally, on subtests making up the Processing Speed Index she performed within the average range. The Processing Speed Index provides a measure of the child???s ability to quickly and correctly scan, sequence, or discriminate simple visual information. Faster processing of information may conserve working memory resources. Specifically, Nabila performed within the high average range on a subtest measuring short-term visual memory, visual discrimination, and cognitive flexibility and concentration (Symbol Search). She performed within the high average range on a measure of visual scanning ability, visual-motor coordination, attention, and motivation (Coding). In summary, Nabila demonstrated overall intellectual functioning within the average range. There was a significant discrepancy between her verbal reasoning (average) and visual spatial reasoning abilities (above average). She also performed within the low average range on measures of processing speed, as well as being high average on measures of working memory. Academic Achievement: The Efrem-Tone Tests of Achievement-III (WJ-III) was administered to assess reading, mathematical, and writing skills. Standard scores of 85 to 115 represent the average range. WJ-R Subtests Standard Score Letter-Word Identification 89 Passage Comprehension 89 Reading Fluency 81 Broad Reading 85 Word Attack 91 Regarding her performance in reading, Nabila performed within the low average range on measures of single word reading and reading comprehension. She performed slightly below average on a measure of reading fluency Memory: The California Verbal Learning Test - Children???s Version (CVLT-C) The California Verbal Learning Test-Children???s Version (CVLT-C) involves the learning of two lengthy lists. The individual is asked to learn list A over five trials and then to learn a distracter list (B). This is followed by recall trials of list A without and then with cueing, immediately and after a twenty- minute delay. The list is divisible into semantic categories (e.g. furniture, vegetables, ways of traveling, and animals), which should make learning the list easier. The test allows examination of the strategies an individual uses to learn the lists, as well as of problems in retention and retrieval of words. Performance is presented below as scaled scores with an average range of -1.0 to 1.0: Recall Measures Scaled Score Total Trials T-score=48 (average =40-60) List A-Trial 1 -1.0 List A-Trial 5 -0.5 List B-Free Recall 0.0 List A Short-Delay Free Recall 0.5 List A Short-Delay Cued Recall 1.0 List A Long-Delay Free Recall -0.5 List A Long-Delay Cued Recall -0.5 Recall Errors (elevated error scores indicate below average performance) Perseverations 0.5 Free Recall Intrusions 0.5 Intrusions (total) 0.5 Recognition Measures Recognition Hits -0.5 False Positives -0.5 Overall Nabila???s ability to encode verbal information over several trials fell well within the average range. She did show an adequate learning curve and her overall recall of list A over several trials fell within the average range of age expectations. By the 5th trial, she had learned 8 of the 15 words. A second list (list B) was also presented as an interference. She was asked to recall the firstlist immediately after the interference list , as well as after a break of approximately 20 minutes.Her performance on recall of items from the original list after a short delay fell within the average range. She was also in the average range on long-term recall. She did not benefit greatly from cuesthat were provided as an organizational strategy and she performed within the average range of functioning. In addition to learning from practice, the information was securely encoded in that she was able to recognize the words from a larger list that included words not on the original list. Overall test results suggest that Nabila???s ability to recall information is mostly within the average range. Children???s Memory Scale In order to further assess her memory skills in the verbal and visual domains, Nabila was administered selected subtests of the Children???s Memory Scale (CMS). Subtest Scaled Score Dot Locations Learning 14 Total 15 Long Delay 13 Story Immediate 10 Delayed 12 Delayed Recognition 13 Nabila???s overall performance on this measure of visual and verbal memory fell within the average tohigh average range. The Dot Locations subtest is a measure of abstract visual memory that required Nabila to learn and reproduce an array of dots on a grid over several trials. Her initial performance on this measure was within the above average range and her ability to recall this material after a brief delay was also within the above average range. After a lengthy delay she performed within the highaverage range. Her memory for paragraph length stories was measured using the Stories subtest. Her immediate memory for story information was in the average range. After a 20-minute delay, her performance was still in the average range. In addition, she had no difficulty answering questions about the story indicating good encoding. The Bautista Visual-Motor Gestalt Test Visual motor integration with regard to ability to copy increasingly complex geometric designs was assessed with the Bautista Visual-Motor Gestalt Test for Young Children. Current results show Nabila???s skills falling within the low end of the average range (Standard Score = 116, average range of 85-115), which indicates no significant difficulty with visual memory and visual-motor integration. Language Reasoning and Judgment: Nabila was administered the Test of Language Competence (TLC) as a measure of higher order language functions, including the ability to detect the meaning of complex language and to express complex thoughts in language correctly. Nabila???s scores are listed below (Scaled scores have an average range of 7 to 13, standard scores for the overall composite have an average range 85 to 115). Subtests Scaled Score Listening Comprehension 8 Figurative Language 7 Interpreting Intents Composite 85 On the Listening Comprehension task, the individual is read a sentence and has to choose two correctinferences regarding the sentence from four choices presented to her. Nabila???s interpretation of abstract language was within the average range. The Figurative Language task requires the individual tointerpret idiomatic phrases such as I can't swallow that. Nabila was also within the average rangeon a measure of her ability to understand common idiomatic phrases on the Figurative Language subtest. Executive Functions Behavior Rating Inventory of Executive Function (BRIEF) The Behavior Rating Inventory of Executive Function (BRIEF) is a questionnaire for parents that enables professionals to assess executive function behaviors in the home and school environments. The executive functions are a collection of processes that are responsible for guiding, directing, and managing cognitive, emotional, and behavioral functions, particularly during active, novel problem-solvingactivities. T-scores for the various scales of the BRIEF are reported below, with average rates of responding yielding scores between 40 and 60: Scale/Index T-Score Inhibit 78c Shift 68b Emotional Control 75c Behavioral Regulation Index 78c Initiate 83c Working Memory 78c Plan/Organize 80c Organization of Materials 66b Monitor 62 Metacognitive Index 79c Global Executive Composite 81c B=Borderline concern C=Clinical Concern Based on her mother???s report, Nabila exhibits significant difficulty on a scale assessing her ability to inhibit inappropriate responses, initiate activities, and plan and organize. Nabila was reportedto have difficulty on a scale assessing working memory. Working memory is essentially the ability tohold information in memory and perform a specific manipulation to the information. Individuals with working memory problems often have difficulty carrying out multistep activities, losing track of whatthey are doing as they work, or forgetting what they are supposed to retrieve when sent on an errand. Finally, she was reported to have difficulties in modulating her emotions. Poor emotional control is often expressed as emotional lability, specifically having overblown reactions to seemingly minor events. Her overall composite for executive functions was within the above average range indicating significant difficulties with global executive functions. DIAGNOSTIC IMPRESSION: Overall, Nabila demonstrated cognitive abilities within the average range of functioning. She performed better on nonverbal reasoning tasks than verbal reasoning abilities. Nabila had no difficulties with verbal learning and also performed within the average range on measures of verbal memory. Although she is mostly functioning well at this time, greater difficulties can arise as more demandsare placed on their abilities in the future. It will be important to closely monitor her acquisitionof academic achievement skills, as well as executive functions such as planning, organization, and impulse control. MULTI-AXIAL ASSESSMENT: The following Multi-Axial assessment is based on the diagnostic system outlined by the Diagnostic and Statistical Manual of Mental Disorders, Fourth Edition (DSM-IV), which is the diagnostic system employed by mental health professionals. The five axes refer to separate domainsof information, which include: I = Clinical Disorders and Other Conditions that May Be a Focus of Clinical Attention, II = Personality Disorders and Mental Retardation, III = General Medical Conditions, IV = Psychosocial and Environmental Concerns, and V = Global Assessment of Functioning (GAF) rating, to guide treatment planning and evaluate progress. The GAF scale ranges from 100 to 0 on a hypothetical continuum of mental health-illness. DIAGNOSES: Gladstone I Disruptive Behavior Disorder, Not Otherwise Specified Gladstone II none Gladstone III Gladstone IV learning difficulties, Gladstone V GAF current = 45 RECOMMENDATIONS: RECOMMENDATIONS: Based on the current evaluation the following recommendations are made: 1. 2. The following recommendations may be helpful in dealing with tantrums: a. Preventing or avoiding tantrums The best long-term policy for tantrums is prevention or avoidance. If fatigue, bad mood, or worsening behavior indicates that a tantrum is due, head it off by a snack, nap, or by redirecting the child. Attention-getting tantrums sometimes start because children want recognition of their emotions. Express your understanding of your child feelings so she won???t have to make a fuss to feel understood. Compliance training is another important part of avoiding tantrums. A highly recommended procedure is one command followed by one warning. If she does not comply, the warning is quickly followed in a brisk and business-like way by a punishment such as a Time-???Out or temporary loss of privilege. Do not give a command that you are unwilling to enforce b. Plan for the next tantrum based on what you know about the previous ones To establish when, where, what, and why of your child???s tantrum, take notes on time of day and circumstances. For a week, write down what triggers them and when, what makes them better and what makesthem worse. Then plan out how you will redirect the child before a tantrum and ignore her during it (see next section). When your child is calm (not when she is tantruming), tell her using her words that you disapprove of her tantrums. Of course, you never disapprove of the child, just her behavior. Tell her you want no more tantrums and that she will not get what she wants by tantruming. Show her how to use words to get what she wants and praise her for doing so. Then pick your battles carefully. Fi guring out which things are not worth fussing over will save your energy (he probably has more than your do). c. When tantrums happen Even with the greatest parental resourcefulness and patience, some tantrums cannot be avoided. Children crave parental attention and some tantrums are about attention getting. Like adults, children prefer positive attention such as praise and approval, but negative attention isbetter than none. Compared to us, children have little power over their lives. Making a parent angryinforms the child that she has some power. So, scolding, yelling, and any emotional reaction is an ???Anger Trap?? for parents; it is like throwing gasoline on a fire. Remaining calm and matter of fact removes a major reinforcement for the tantrum. Taking a deep breath, going into another room, having a plan can help you remain calm. You can???t reason with a child having a tantrum. Don???t try. Don???t plead, argue, or threaten. Don???t yell or hit. Be respectful, but firm. Remember, she will use your behavior as a model of how to react to stress. A good approach is ???Planned Ignoring.?? When the tantrum starts, turn away; do not talk to or look at her until it is over. With a school-age child, you can leave the room or send her to her room. She must stay there until she gets control of herself. The tantrums may escalate the first few times you do this, but stick to it and they will eventually diminish. Other tantrums are about trying to get out of a task (e.g., turning off the TV, picking up toys). If the child successfully avoids a task by tantruming, she is more likely to tantrum again the next time. Do not finish the task for him. After the tantrum is over, make sure she completes it,even if it requires hands- on help from you. There is a natural impulse to console a child in the distress (sobbing/comfort seeking) phase of a tantrum. This is the ???Distress Trap?? for parents and it, too, will reinforce the tantrum. Resist this trap, saying instead ???When you stop crying, you can have a hug/or we can do...(the next activity).?? d. Other do???s and don???ts i) Bribery or ???giving in?? Never give in or bribe (???bribing?? is giving a reward before the child has complied in the hope that she will). Peace breaks out if you do, but the next tantrum becomesthat much more likely. It is important to be both consistent and persistent. Occasional bribery or giving in is particularly insidious. If the child thinks that there is even a chance to win this time,she is even more likely to keep trying. The worst case is inadvertently teaching the child to outlast you. When you give in after a long struggle, you teach the child that if she screams for just one more minute, she may get her way. This leads directly to long distance tantrums. ???Spoiled?? children are those who are used to getting their way and have learned to pull out the stops to get it. ii) United We Stand It is very important that parents and other caregivers share the same disciplinepolicy and back each other up, otherwise the child will play them against each other. e. After it is over Because some children may be in a particularly vulnerable mood or have an especially sensitive personality, they may need to be held, talked to, or distracted after the tantrum. Following the majority of tantrums, however, most children resume their normal activity as if nothing had happened. In general, do not discuss the tantrum or the privilege for which your child was asking. Do not criticize her for the tantrum but praise her for calming down. Let her go on her way and make a fresh start. Wait a few minutes and praise her for the next appropriate behavior. f. Learning emotional self-regulation When the tantrum is intense and the child, caught up in and driven by her own emotions, rages implacably or cries inconsolably, parents say she is ???out of control.?? At this point, the child is likely to reject an offer of whatever she was tantruming about in the first place. Children in these circumstances report feeling that they ???can???t help it?? or ???can???t stop.?? Psychologists refer to this condition as ???dysregulated.?? Some believe that children so dysregulated become frightened at their own lack of control. Whether or not this is so, the preceding behavioral suggestions directly address the emotional core of tantrum. Responding well to discipline by gaining control over her unruly emotions shows the child that she really can regulate himself. You can strengthen this experience and empower your child by rewarding her with brief verbal praise for having gained control over her unruly behavior. 3) It is recommended that Nabila be brought back to this clinic for a re- evaluation in two years to continue to monitor her overall development and attentional functioning. Should more significant concerns arise before that time, we are always available for further consultation or assessment in the [facility]. It was a pleasure to work with Nabila and her caregivers. If you have any questions or concerns regarding this report, please feel free to contact us at . Jb Bell, Ph.D., Department of Pediatrics Cc: Electronically signed by:JB BELL PhD,LP Aug 17 2007 3:25PM CUFF FOLDER Jb Bell - 05/26/2007 9:00 AM CDT Stationary Steam Engineer: Jb Bell Status: Unsigned Encounter: 26 May 2007 Type: Peds Chart Note PEDIATRIC PSYCHOLOGY CONTACT RECORD RE: Nabila Serna MR#: [id number] : 2000 DOS: 05/26/2007 Clinician: Esther Colindres M.A. Power Saw Mechanic: Dr. Jb Bell Type of Activity (Total Time Spent in Hours): Testin.5 hours Reason for Referral: Neuropsychological Evaluation BEHAVIORAL OBSERVATIONS: Nabila is a 6-year old right-handed female who came in for an assessment due to concerns regarding concentration and reading. Nabila was accompanied to the session by her mother, Twila, and sisters. Nabila???s general appearance was appropriate. She appeared her stated age. Her height and build seemed to be average. Grooming appeared to be good and her dress was casual for age as she wore a short-sleeve polo shirt. She had no noted auditory, visual, or motor problems. Nabila appeared to be a sweet-natured, energetic young girl with a gracious smile. Her speech was inadequately articulated at times, which made some of her words difficult to understand. She interchanged /ch/ for /sh/ blends (i.e. ???shredder?? for sweater and ???sherries?? for cherries). She also had difficulty with /cr/ and /ar/ blends (i.e. ???cwayons?? for crayons and ???my- bles?? for marbles). Her speech was delivered at a normal rate and volume. Her responses seemed to be thoughtful, coherent, and meaningful. Her responses suggested she had no difficulties finding words and was ble to comprehend questions. Thought processes and association appeared to be clear and understandable. Nabila???s mood and affectwas composed. She showed variable attention and concentration. Sometimes, she seemed disengaged in the middle of verbal tasks but was quite motivated and focused while working on non-verbal tasks. During verbal tasks, she appeared to be easily distracted by a loose page in the testing manual. She played with the loose sheet, even in the middle of a task, and appeared to disengage. She responded well to periodic prompting, redirection, and encouragement and was able to return to the tasks with adequate attention. On the other hand, she appeared excited when given non-verbal tasks. She often smiled, clapped her hands, and expressed eagerness to begin timed tasks. Nabila remained in her seat throughout the testing session. Overall, Nabila???s general behavior was cooperative and pleasant. Nabila worked with a steady focus and attention and did not appear to be frustrated with the testing tasks. She seemed to try and complete tasks to the best of her ability. In regard to the current assessment, testing conditions, and Nabila???s effort, test results are thought to be an accurate estimate of her true abilities in the areasassessed and may be considered valid and reliable. documented in this encounter Plan of Treatment Not on filedocumented as of this encounter Visit Diagnoses Not on filedocumented in this encounter
--- OUTSIDE RECORDS SUMMARY | 2021-12-08 10:23 | XMS_ITS | Clinical Summary ---
:2000 Author Organization [employer] [place] [address] Care Team Providers Name Role Phone Pcp, No Primary Care Provider Unavailable Allergies Active Allergy Reactions Severity Noted Date Comments Shellfish Derived Angioedema 03/09/2020 Acetaminophen *Unknown 04/11/2016 Patient cannot take acetaminophen due to implante d sensor related to the insulin pum p. (08/2020: patien t no longer on insulin pump) Medications Medication Sig Dispensed Refills Start Date End Date Status GLUCAGON EMERGENCY ADMINISTER 1MG FOR 11 11/05/2016 Active KIT, HUMAN, 1 mg kit SEVERE HYPOGLYCEMIA ACCU-CHEK FASTCLIX USE UP TO 4 LANCETS 11 11/05/2016 Active DAILY TO TEST BLOOD SUGAR MERON PEN NEEDLE 32 0 12/01/2016 Active gauge x 5/32 ONETOUCH VERIO strip 0 12/07/2016 Active valACYclovir Take 500 mg by mouth 0 07/20/2020 Active (VALTREX) 500 mg 2 times daily if tablet needed. ibuprofen (ADVIL; Take 400 mg by mouth 0 Active MOTRIN) 200 mg 2 times daily if tablet needed. insulin aspart, 1 units for every 8 0 09/29/2020 Active U-100, (NovoLOG grams carb, Plus 1 Flexpen U-100 unit for every 40 Insulin) 100 unit/mL over 140 PreMeal and (3 mL) 1 units per 80 over penIndications: Type 140 at bedtime. TDD 1 diabetes mellitus 60-100 units without complication (HC) Lantus Solostar Inject 24 units 0 09/29/2020 Active U-100 Insulin 100 subcutaneous before unit/mL (3 mL) bedtime. 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 Overview: Hospitalized in [place] in [facility] Conflict at home Has lived in jail Consideration to moving to [facility] = for children with type 1 diabetes mellitus would be 3 months there Attention deficit hyperactivity disorder (ADHD), combi libra type 03/27/2016 Immunizations Name Administration Dates Next Due AMB Influenza, IIV4 PF (=>6 mos 01/09/2014 Flulaval,Fluzone Fluarix)(Flu Clinic Only) DTaP 11/06/2004, 03/30/2001, 06/29/2000, 02/04/2000, 1999 HIB-HepB (Comvax) 03/30/2001, 02/04/2000, 1999 Hepatitis A (Peds) 11/04/2013, 01/08/2011 Hepatitis B (Peds) 03/30/2001, 02/04/2000, 1999 Human Papilloma Virus Vaccine 05/20/2012, 10/28/2010, 2001 Inactivated Polio Vaccine 11/06/2004, 06/29/2000, 02/04/2000 , 1999 Influenza A (H1N1), Inactivated 01/19/2009 Influenza, IIV3 (Age 6-35 mos) 04/16/2006 Influenza, IIV3 (Age >=3 years) 01/10/2013, 11/29/2008 Influenza, IIV4 12/16/2016, 01/09/2014 Influenza, IIV4 (=>6mos) MDV 11/26/2015 Influenza,LAIV4 Live Intranasal 10/28/2010 (Flumist) MMR 11/06/2004, 03/30/2001 Meningococcal Vaccine (Menveo) 05/20/2012 Pneumococcal conj 7-Valent (Prevnar 7) 06/29/2000, 0, 1999 Polio Virus, Unspecified 11/06/2004, 06/29/2000, 02/04/2000, 1999 Tdap 10/28/2010 Varicella Vaccine 10/28/2010, 03/30/2001 Social History Tobacco Use Types Packs/Day Years Used Date Current Some Day Smoker 0.5 Smokeless Tobacco: Never Used Tobacco Cessation: Ready to Quit: Yes; C ounseling Given: Yes Comments: 1 cigarette a day, considering vaping Alcohol Use Standard Drinks/Week Comments Yes 0 (1 standard drink = 0.6 oz pure alcoho l) rare Alcohol Habits Answer Date Recorded How often do you have a drink containing alcohol? Not asked How many drinks containing alcohol do you have on a typical Not asked day when you are drinking? How often do you have six or more drinks on one occasion? No t asked Comment: rare 07/09/2017 Sex Assigned at Date Recorded Not on file Obstetrics History Para Term AB IAB SAB Ectopic Multiple Living Live Births 1 Date Outcome GA Total Labor/2nd/3rd Weight Sex Delivery Anes PTL Rosa A 1 A5 Name Clin Labor Last Filed Vital Signs Vital Sign Reading Time Taken Comments Blood Pressure 139/89 09/29/2020 1:19 AM CDT Pulse 102 09/28/2020 8:36 PM CDT Temperature 36.8 ??C (98.2 ??F) 09/29/2020 1:19 AM CDT Respiratory Rate 16 09/29/2020 1:19 AM CDT Oxygen Saturation 99% 09/29/2020 1:19 AM CDT Inhaled Oxygen Concentration - - Weight 71.6 kg (157 lb 13.6 oz) 09/27/2020 9:00 PM CDT Height 160 cm (5' 3) 03/09/2020 9:45 PM TAX AUDIT MANAGER Body Mass Index - - Plan of Treatment Health Maintenance Due Date Last Done Comments COVID-19 vaccine series (#1) 03/04/2000 BMI (ht and wt on same day) for 09/01/2017 age 18+ Depression screening for age 12+ 01/07/2018 01/07/2017, , 10/06/2016, Additional history exists Chlamydia for age 16-24 08/13/2018 08/13/2017, 07/09/2017, 03/28/2016 Pap test for age 21-65 09/01/2020 Tetanus booster 10/28/2020 10/28/2010 Influenza for age 9-49 10/31/2021 12/16/2016, 11/26/2015, 01/09/2014, Additional history exists Tdap Completed 10/28/2010 Hepatitis C screening for age Completed 03/28/2016 18-79 Results Not on filefrom Last 3 Months Insurance Payer Benefit Plan / Subscriber ID Effective Dates Phone Addre ss Type Group BEBE SPENCE MA [id number] 2020-Present [address] [place] [address] Advance Directives Latest Code Status on File Code Status Date Activated Date Inactivated Comments Full Code 09/27/2020 11:16 PM 09/29/2020 12:44 PM Code Status Discussion: Not Discussed Full Code 03/26/2016 6:32 PM 04/10/2016 8:09 PM Care Teams Certified Lactation Counselor Relationship Specialty Start Date End Date Pcp, No PCP - General 07/09/17 .
--- OUTSIDE RECORDS SUMMARY | 2021-12-08 10:24 | XMS_ITS | Clinical Summary ---
:2000 Author Organization [facility] Address [address] [place] [address] Care Team Providers Name Role Phone Palmira Lim MD Primary Care Provider Source Comments You are receiving this document as you are listed as the primary care provider,follow-up provider, or the patient has been referred to you for consultation.This is in compliance with the Medicare and Medicaid EHR Incentive Program,which states Providers who transition their patient to another setting of careor provider of care or refers their patient to another provider of care shouldprovide summarycare record for each transition of care or referral. [email or web address] Allergies Active Allergy Reactions Severity Noted Date Comments Acetaminophen Other, see comments 04/11/2016 Patient cannot take acetaminophen d ue to implanted senso r related to the insulin pump. Is not supposed to take while usin g insulin pump Shellfish-Derived Anaphylaxis High 03/09/2020 Lip swelli ng Products Medications Medication Sig Dispensed Refills Start Date End Date Status insulin pen needle Inject 1 Each 500 Each 2 01/11/2020 Active 31G X 5 subcutaneously five MMIndications: Type times a day. 1 diabetes mellitus without complication (HRC) insulin aspart 1U for every 30 over 45 mL 3 05/16/2020 Active (NOVOLOG FLEXPEN) 140 on sliding scale 100 UNIT/ML pen 1 U for every 3 g injectionIndication carbs lunch and s: Diabetes dinner, 1/4 grams Mellitus breakfast TDD 60-100 units Indications: Diabetes Mellitus Additional Information Patient taking differently: 1U for every 30 over 140 on sliding scale 1 U for every 8 g carbs TDD 60-100 units, Other, Indications: Diabetes Mellitus, Reported on 05/13/2021 Ferrous Sulfate (IRON SLOW 1 Tablet daily. 0 Active RELEASE OR) Continuous Blood Gluc Take 1 Each as instructed 1 Each 3 Active Transmit (DEXCOM G6 daily. TRANSMITTER) MISCIndications: Type 1 diabetes mellitus without complication (HRC) ULTICARE MINI PEN NEEDLES USE TO INJECT INSULING 5 500 Each 2 01/21/2021 Active TIMES DAILY Continuous Blood Gluc Sensor PLACE 1 SENSOR ON DRY, 9 Each 2 01/21/2021 Active (DEXCOM G6 SENSOR) CLEAN, HAIRLESS SKIN EVERY MISCIndications: Type 1 10 DAYS. diabetes mellitus without complication (HRC) valACYclovir (VALTREX) 500 Take 500 mg by mouth as 0 07/20/2020 Active MG tablet needed. insulin glargine (LANTUS 15 unit QAM and 34 units 30 mL 1 05/13/2021 Active SOLOSTAR) 100 UNIT/ML QPM Indications: Diabetes penIndications: Diabetes Mellitus Mellitus Additional Information Patient taking differently: 34 units QPM, Other, Indications: Diabetes Mellitus, Reported on 08/07/2021 levothyroxine (SYNTHROID) 50 MCG Take 1 tab daily 90 Tablet 3 08/07/2021 Active tablet Active Problems Problem Noted Date Type 1 diabetes mellitus without complication 09/20/19 21 Genital warts 08/02/2020 Genital herpes simplex 06/22/2020 Resolved Problems Problem Noted Date Resolved Date Supervision of other high risk , antepartum 021 10/11/2020 Maternal thyroid dysfunction, antepartum 03/08/2020 10/11/2020 Constipation 03/08/2020 10/11/2020 Pre-existing type 1 diabetes mellitus during in 10/11/2020 second trimester Attention deficit hyperactivity disorder (ADHD) 10/30/2008 10/11/2020 Subclinical hypothyroidism 10/11/2020 Herpes genitalia 10/11/2020 Immunizations Name Administration Dates Next Due 4vHPV (Gardasil) 05/20/2012, 10/28/2010, 03/30/2001 DTaP 11/06/2004, 03/30/2001, 06/29/2000, 02/04/2000, 1999 Flu Vac (3+ yrs) 01/10/2013, 11/29/2008 Flu Vac Preserv Free (6-35 mo) 04/16/2006 Fluzone Qiv Multidose Vial 0.25 (6-35 10/31/2016, 11/26/2015 Mos) [id number] 01/19/2009 H1n1 Laiv Medimmune 2-49 Yr 01/19/2009 (Intranasal) HepA Ped/Adol (1-18 yrs) 11/04/2013, 01/08/2011 HepB Ped/Adol (0-18 yrs) 03/30/2001, 02/04/2000, 1999 Hib/HBV 03/30/2001, 02/04/2000, 1999 IPV (Polio) 11/06/2004, 06/29/2000, 02/04/2000, 1999 Influenza IIV4 (Quadrivalent) 0.5mL 12/17/2020, 03/08/2020, 12/16/2016, ([id number]) 01/09/2014 Influenza LAIV (Nasal, 2-49 yrs) 10/28/2010 Influenza Vaccine TIV, Nasal 10/28/2010 MCV4 (Menveo) 05/20/2018, 05/20/2012 MMR 11/06/2004, 03/30/2001 Pneumococcal 7, PED 06/29/2000, 02/04/2000, 1999 Polio, Unspecified Formulation 11/06/2004, 06/29/2000, 02/03, 1999 Tdap 06/22/2020, 10/28/2010 Varicella 10/28/2010, 03/30/2001 Family History Medical History Relation Name Comments No Known Problems Father Unaware of bio logical dads PMH Cancer, Cervical Mother Amblyopia/Strabismus Negative Family History Cataract Negative Family History Glaucoma Negative Family History Macular Degeneration Negative Family History Retinal Detachment Negative Family History Relation Name Status Comments Father Alive Mother Alive Brother 1 Alive Brother 2 Alive Sister 1 Alive Sister 2 Alive Sister 3 Alive Sister 4 Alive Sister 5 Alive Social History Tobacco Use Types Packs/Day Years Used Date Smoking Tobacco: Former Cigarettes 0.3 1 Smokeless Tobacco: Never Alcohol Use Standard Drinks/Week Comments Yes 0 (1 standard drink = 0.6 oz pure alcoho l) on ocass Alcohol Habits Answer Date Recorded How often do you have a drink containing alcohol? Not asked How many drinks containing alcohol do you have on a typical Not asked day when you are drinking? How often do you have six or more drinks on one occasion? No t asked Comment: on ocass 05/20/2018 Sex Assigned at Date Recorded Female 09/14/2020 7:23 AM CDT Last Filed Vital Signs Vital Sign Reading Time Taken Comments Blood Pressure 122/71 08/07/2021 3:26 PM CDT Pulse 78 08/07/2021 3:26 PM CDT Temperature 37.4 ??C (99.4 ??F) 08/04/2018 1:31 PM CDT Respiratory Rate 16 08/04/2018 1:31 PM CDT Oxygen Saturation 96% 08/04/2018 1:31 PM CDT Inhaled Oxygen Concentration - - Weight 61.6 kg (135 lb 14.4 oz) 08/07/2021 3:26 PM CDT Height 160 cm (5' 3) 08/07/2021 3:26 PM CDT Body Mass Index 24.07 08/07/2021 3:26 PM CDT Plan of Treatment Health Maintenance Due Date Last Done Comments Hep C Screening (Preventive 2000 Services) COVID-19 Vaccine (#1) 03/04/2000 Pneumococcal (1 - PCV) 09/01/2005 06/29/2000, 02/04/2000, 1999 Adult Preventive Visit 05/21/2019 05/20/2018, 10/28/2010, 11/29/2008, Additional history exists Diabetes: Foot Exam 05/21/2019 05/20/2018 (Completed) Chlamydia 03/08/2021 03/08/2020, 05/20/2018 Diabetes: Eye Exam 06/07/2021 06/07/2020, 11/16/2018 Influenza (#1) 2021 12/17/2020, 03/08/2020, 12/16/2016, Additional history exists Diabetes: HGBA1C 11/07/2021 08/07/2021, 05/13/2021, 09/19/2020, Additional history exists Diabetes: Creatinine 05/13/2022 05/13/2021, 08/09/2020, 08/02/2020, Additional history exists Diabetes: Urine Microalbumin 05/13/2022 05/13/2021, 020, 05/20/2018 Diabetes: Lipid Panel 05/21/2023 05/20/2018 Pap 10/12/2023 10/11/2020 DTaP/Tdap/Td (8 - Tdap) 06/22/2030 06/22/2020, 10/28/2010, 11/06/2004, Additional history exists Zoster/Shingles (1 of 2) 09/01/2049 HepB Completed 03/30/2001, 03/30/2001, 02/04/2000, Additional history exists Hib Completed 03/30/2001, 02/04/2000, 1999 IPV (Polio) Completed 11/06/2004, 11/06/2004, 06/29/2000, Additional history exists Varicella Completed 10/28/2010, 03/30/2001 HPV Vaccine Completed 05/20/2012, 10/28/2010, 03/30/2001 HepA Completed 11/04/2013, 01/08/2011 MCV4 Completed 05/20/2018, 05/20/2012 HIV Screening (Preventive Completed 03/08/2020, 05/20/2018 Services) Insurance Payer Benefit Plan / Subscriber ID Effective Dates Phone Addre ss Type Group [facility] [id number] 2021-Present [phone] CLAIMS Medicaid [address] [place] [address] RETURNED (Home) MAIL 11/22/[address] [place] [id number] Nabila Serna Personal/Family Self 2000 RETURNED (Home) MAIL 11/22/[address] [place] [address] [id number] Care Teams Human Service Specialist Relationship Specialty Start Date End Date Palmira Lim MD PCP - General 05/08/[address] [place] [address]
--- OUTSIDE RECORDS SUMMARY | 2021-12-08 10:24 | XMS_ITS | Encounter Summary ---
:2000 Author Organization [employer] Address [address] [place] [address] Care Team Providers Name Role Phone Palmira Lim MD Primary Care Provider Encounter Details Date Type Department Care Team Description 12/17/2020 Notes/Orders [place] [id number] [facility] examination [address] for other mental [place], [place] health and [place] [id number] disorders (Primary Dx) [phone] Social History Tobacco Use Types Packs/Day Years Used Date Smoking Tobacco: Former Cigarettes 0.3 1 Smokeless Tobacco: Never Alcohol Use Standard Drinks/Week Comments Not Currently 0 (1 standard drink = 0.6 oz pure alcoho l) on oc Alcohol Habits Answer Date Recorded How often do you have a drink containing alcohol? Not asked How many drinks containing alcohol do you have on a typical Not asked day when you are drinking? How often do you have six or more drinks on one occasion? No t asked Comment: on ocass 05/20/2018 Sex Assigned at Date Recorded Female 09/14/2020 7:23 AM CDT documented as of this encounter Plan of Treatment Not on filedocumented as of this encounter Visit Diagnoses Diagnosis Encounter for screening examination for other mental health and behavioral disorders - Primary documented in this encounter Care Teams Technology Advisor Relationship Specialty Start Date End Date Palmira Lim MD PCP - General 05/08/06 [address] [address] documented as of this encounter
--- OUTSIDE RECORDS SUMMARY | 2021-12-08 10:24 | XMS_ITS | Encounter Summary ---
:2000 Author Organization [employer] Address [address] [address] Phone Care Team Providers Name Role Phone Elsewhere, Pcp Primary Care Provider Unavailable Reason for Visit Reason Comments Immunizations Encounter Details Date Type Department Care Team Description 02/25/2017 Abstract [facility] HIS Abstract, Provider, Immunizations [address] [place], [place] [id number] Social History Tobacco Use Types Packs/Day Years Used Date Current Every Day Smoker Cigarettes 0.25 0.5 Sta rted: 08/30/2016 Smokeless Tobacco: Never Used Alcohol Use Standard Drinks/Week Comments No 0 (1 standard drink = 0.6 oz pure alcoho l) Sex Assigned at Date Recorded Not on file documented as of this encounter Functional Status Functional Status Response Date of Assessment Patient's Vision Adequate to Safely Complete Daily Yes 12/17/2016 Activities Patient's Memory Adequate to Safely Complete Daily Yes 12/17/2016 Activities Cognitive Status Response Date of Assessment Patient's Judgment Adequate to Safely Complete Daily Yes 12/17/2016 Activities documented as of this encounter Plan of Treatment Not on filedocumented as of this encounter Visit Diagnoses Not on filedocumented in this encounter Care Teams Mechanical Process Engineer Relationship Specialty Start Date End Date Elsewhere, Pcp PCP - General 02/06/17 documented as of this encounter
--- OUTSIDE RECORDS SUMMARY | 2021-12-08 10:24 | XMS_ITS | Encounter Summary ---
:2000 Author Organization [employer] Address [address] [place] [address] Care Team Providers Name Role Phone Palmira Lim MD Primary Care Provider Reason for Visit Reason Onset Date Comments Refill 10/23/2020 Encounter Details Date Type Department Care Team Description 10/23/2020 Refill [facility] [address], CAMERA REPAIR TECHNICIAN, [place] Refill Endocrinology [address] [place] [address] [place], [place] [id number] [phone] Social History Tobacco Use Types Packs/Day Years [...] AM CDT documented as of this encounter Nursing Notes KatelynnAleida choi RN - 10/23/2020 2:13 PM CDT Requested Prescriptions Signed Prescriptions Disp Refills ??? Continuous Blood Gluc Sensor (DEXCOM G6 SENSOR) MISC 9 Each 3 Sig: Take 1 Each as instructed every 10 days. Authorizing Provider: AIDEN BELTRAN Ordering User: ALEIDA LUCERO ??? Continuous Blood Gluc Transmit (DEXCOM G6 TRANSMITTER) MISC 1 Each 3 Sig: Take 1 Each as instructed daily. Authorizing Provider: AIDEN BELTRAN Ordering User: ALEIDA LUCERO Filled per RN protocol and Pt request. documented in this encounter Plan of Treatment Not on filedocumented as of this encounter Visit Diagnoses Diagnosis Type 1 diabetes mellitus without complic ation (HRC) Type I (juvenile type) diabetes mellitus without mention of complication, not stated as uncontrolled documented in this encounter Care Teams Molder Wax Ball Relationship Specialty Start Date End Date Palmira Lim MD PCP - General 05/08/[address] [place] [id number] documented as of this encounter
--- OUTSIDE RECORDS SUMMARY | 2021-12-08 10:24 | XMS_ITS | Encounter Summary ---
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 Pap Test: Care Instructions Overview The Pap test (also called a Pap smear) is a screening test for cancer of the cervix, which is the lower part of the uterus that opens into the vagina. The test can help your doctor find early changes in the cells that could lead to cancer. The sample of cells taken during your test has been sent to a lab so that an expert can look at the cells. It usually takes a week or two to get the results back. Follow-up care is a scott part of your treatment and safety. Be sure to make and go to all appointments, and call your doctor if you are having problems. It's also a good idea to know your test results and keep a list of the medicines you take. What do the results mean? ?? A normal result means that the test did not find any abnormal cells in the sample. ?? An abnormal result can mean many things. Most of these are not cancer. The results of your test may be abnormal because: ? You have an infection of the vagina or cervix, such as a yeast infection. ? You have an IUD (intrauterine device for control). ? You have low estrogen levels after menopause that are causing the cells to change. ? You have cell changes that may be a sign of precancer or cancer. The results are ranked based on how serious the changes might be. There are many other reasons why you might not get a normal result. If the results were abnormal, you may need to get another test within a few weeks or months. If the results show changes that could be a sign of cancer, you may need a test called a colposcopy, which provides a more complete view of the cervix. Sometimes the lab cannot use the sample because it does not contain enough cells or was not preserved well. If so, you may need to have the test again. This is not common, but it does happen from time to time. When should you call for help? Watch closely for changes in your health, and be sure to contact your doctor if: ? You have vaginal bleeding or pain for more than 2 days after the test. It is normal to have a small amount of bleeding for a day or two after the test. Where can you learn more? 1. Go to https://www.The [employer]/healthlibrary. 2. Enter U972 in the search box. Current as of: February 16, 2020?Content Version: 12.8 ?? [employer]. Care instructions adapted under license by your healthcare professional. If you have questions abouta medical condition or this instruction, always ask your healthcare professional. [employer] disclaims any warranty or liability for your use of this information. Learning About Control After Childbirth What is control? control (contraception) is any method used to prevent . Wait until you're healed before you have sexual intercourse. This takes about 4 to 6 weeks. If you have sex without control, there is a chance that you could get . This is true even if you haven't started having periods again. Even if you breastfeed, you can still get . Most experts suggest waiting at least 18 months to get again. This can reduce risks for youand the baby. There may be reasons for you to get sooner, though. So talk with your doctor about the risks and benefits. The only sure way to not get is to not have sex. But finding a good method of controlthat you're comfortable with can help you avoid an unplanned . Your doctor can help you choose the control method that's right for you. What are the types of control? ?? Long-acting reversible contraception (LARC). This is the most effective reversible method you canuse to prevent . LARCs are implants and intrauterine devices (IUDs). While they are being used, they usually prevent for years. If you decide you want to get , you can have them removed. ? Implants are placed under the skin of the arm. This can be done right after you give . They release the hormone progestin. They prevent for about 3 years. ? IUDs are placed in the uterus by a doctor. This can be done right after you give , if you andyour doctor discuss it beforehand. Or it can be done at a doctor visit later. There are two main types of IUDs--the copper IUD and the hormonal IUD. The hormonal IUD releases progestin. IUDs prevent for 3 to 10 years, depending on the type. ?? Hormonal methods. They are very good at preventing . Combination control pills (the pill), skin patches, and vaginal rings release the hormones estrogen and progestin. Depo-Provera is a shot you get every 3 months. Shots, mini-pills, IUDs, and implants release progestin only. It's best to use progestin-only options in the first few weeks after you give . ?? Barrier methods. These don't prevent as well as implants, IUDs, or hormonal methods do.Barrier methods include condoms, diaphragms, and cervical caps. You must use them every time you have sex. If you had a diaphragm or cervical cap before you got , talk to your doctor to see if you need a different size. Condoms can be used anytime after you give . ?? Natural family planning. This is also known as fertility awareness or the rhythm method. It can work if you and your partner are very careful and you have a regular ovulation cycle. But it doesn't work better than other control methods. You will need to keep good records so you know when you are most likely to become . And during those times, you will need to use a barrier method or not have sex. ?? Permanent control (sterilization). It gives you lasting protection against . A mancan have a vasectomy. A woman can have her tubes tied (tubal ligation). But this is only a good choice if you are sure that you don't want any more children. ?? Emergency contraception. This is a backup method to prevent if you didn't use control or if a condom breaks. The most effective emergency contraception is prescribed by a doctor. This includes the copper IUD (inserted by a doctor) or a prescription pill. You can also get emergency contraceptive pills without a prescription at most [facility]. How can you get control? ?? You can buy: ? Condoms and spermicides without a prescription. You can get them in drugstores, online, and in many grocery stores. ? Some forms of emergency contraception without a prescription. You can get these at most drugstores. ?? You need to see a doctor or visit family planning clinic to: ? Get a prescription for control pills and other methods that use hormones. ? Have an implant or IUD inserted. This includes the type of IUD used for emergency contraception. ? Get a hormone shot. ? Get a prescription for a diaphragm or cervical cap. ? Get a prescription for certain kinds of emergency contraception. Follow-up care is a scott part of your treatment and safety. Be sure to make and go to all appointments, and call your doctor if you are having problems. It's also a good idea to know your test results and keep a list of the medicines you take. Where can you learn more? 1. Go to https://www.The [employer]. 2. Enter X408 in the search box. Current as of: December 08, 2019?Content Version: 12.8 ?? [employer]. Care instructions adapted under license by your healthcare professional. If you have questions abouta medical condition or this instruction, always ask your healthcare professional. [employer] disclaims any warranty or liability for your use of this information. documented in this encounter Progress Notes Nabila Stokes MD - 08/29/2020 2:00 PM CDT [facility] CC: BP and mood check Subjective Nabila Serna is a 19 y.o. who presents for a blood pressure and mood check. complications: - Type 1 diabetes - Hypothyroidism - preE w/o SF (diagnosed at 34 weeks) - Excessive weight gain in (TWG was 75#) - Hx of HSV - Hx THC use, stopped when found out she was - Polyhydramnios She had a Male by spontaneous vaginal delivery on 08/15/2020 at 36w3d. Delivery was complicated by a 140 second shoulder dystocia, require humerus fracture for delivery. She was discharged home with Procardia XL 90 mg and Labetalol 400 mg BID. Called haydee yesterday on08/28 with dizziness and BPs in the 90/74. At that, she was instructed to stop the labetalol and continue with the Procardia. Since that time, hasn't checked her BPs at all. Does have a BP cuff. Regarding her BGs, states they are pretty good. Regarding mood, states at first it was really with baby being in the NICU but now that he is gettingbetter and closer to getting home - this is helping. Motrin/Tylenol PRN, rare. She has good bowel and bladder function. She has no other complaints. Scant lochia. She is breast feeding/puming for infant who is overall doing well in the NICU. He is working on feeding. He is in a sling for his humerus fracture and they are starting PT exercises. She states they anticipate he will make a full recovery. She has not had intercourse. Last Pap: NA, <21 but due at PP visit Assessment/Plan 1. Blood pressure and mood check 2. Depression screen: EPDS score of 5 today 3. T1DM: Endo f/u on 09/19/2020 4. Hypothyroidism: Continue 50 mcg per day as Endo suggested 5. Genital HSV 6. ADD 7. Feed: Breast/pumping 8: Contraception counseling; patient state she doesn't want any contraception. I did discuss with her weight, pre-E with SF and T1Dm that risk of short IPI are very dangerous to her and baby. Strongly recommended she consider Progesterone contraception. Information was provided. 9. Pre-E with SF; s/p Magnesium. Continue with Procardia 90 mg daily. Enforced patient needs to takeBPs twice daily and call if <100/70 or >150/100. She states understanding. Severe symptoms of pre-E also reviewed. RTC in 1 week for BP check - this could be video or phone. Nabila Stokes MD P: [phone] 08/29/2020 2:03 PM Billing based on: Complexity Total time for the visit was 35 minutes including, but not limited to, kfn-cutj-vw-face time spent reviewing records, counseling, and coordination of care. documented in this encounter Plan of Treatment Not on filedocumented as of this encounter Visit Diagnoses Diagnosis Pre-eclampsia, severe, delivered - Prima ry Severe pre-eclampsia, with delivery Pre-existing type 1 diabetes mellitus du ring in second trimester Hypothyroidism, unspecified type (HRC) Genital warts Condyloma acuminatum Herpes simplex infection of genitourinar y system (HRC) (spontaneous vaginal delivery) Normal delivery Shoulder dystocia, delivered documented in this encounter Care Teams Barbed Wire Machine Operator Relationship Specialty Start Date End Date Palmira Lim MD PCP - General 05/08/[address] [place] [id number] documented as of this encounter
--- OUTSIDE RECORDS SUMMARY | 2021-12-08 10:24 | XMS_ITS | Encounter Summary ---
:1999 Author Organization [employer] Address [address] [place] [address] Care Team Providers Name Role Phone Palmira Lim MD Primary Care Provider Encounter Details Date Type Department Care Team Description 05/14/2021 Notes/Orders [facility] [address] [facility] M, MBBS hypothyroidism (Primary [address] [facility] [address] [facility] [place] [address] [phone] Social History Tobacco Use Types Packs/Day Years [...] as of this encounter Visit Diagnoses Diagnosis Subclinical hypothyroidism - Primary Other specified acquired hypothyroidism documented in this encounter Care Teams Solid Center Winder Relationship Specialty Start Date End Date Palmira Lim MD PCP - General 05/08/[address] [place] [address] documented as of this encounter
--- OUTSIDE RECORDS SUMMARY | 2021-12-08 10:24 | XMS_ITS | Encounter Summary ---
:1999 Author Organization [facility] Address [address] [place] [address] Care Team Providers Name Role Phone Palmira Lim MD Primary Care Provider Encounter Details Date Type Department Care Team Description 08/09/2020 Lab Visit [facility] Lab trimester [address] [facility] [address] [place] [address] Social History Tobacco Use Types Packs/Day Years [...] AM CDT documented as of this encounter Progress Notes Shana Hernández MD - 08/09/2020 2:10 PM CDT Reece Nabila, Your recent lab results were normal today. Normal kidney, liver and platelet function meaning no progression of preeclampsia at this point. Please contact our clinic at [phone] or via [facility] [employer] if you have any questions. Thanks, Shana Hernández MD documented in this encounter Plan of Treatment Not on filedocumented as of this encounter Procedures Procedure Name Priority Date/Time Associated Diagnosis Comme nts CREATININE / GFR Routine 08/09/2020 2:11 PM Pre-eclampsia in R esults for this CDT third trimester procedure ar e in the results section. PLATELETS Routine 08/09/2020 2:11 PM Pre-eclampsia in Resul ts for this CDT third trimester procedure ar e in the results section. ALT (SGPT) Routine 08/09/2020 2:11 PM Pre-eclampsia in Resul ts for this CDT third trimester procedure ar e in the results section. AST Routine 08/09/2020 2:11 PM Pre-eclampsia in Resul ts for this CDT third trimester procedure ar e in the results section. documented in this encounter Results Alanine Aminotransferase [ALT] (08/09/2020 2:11 PM CDT) athologist Signature ALT (SGPT) <10 0 - 55 U/L 08/09/2020 [facility] 5:09 PM CDT LABORATORY Specimen Anatomical Collection Method / Collection Time Recei andrade Time (Source) Location / Volume Laterality Blood Venipuncture / 08/09/2020 2:11 08/09/2020 2:11 Unknown PM CDT PM CDT Shana Hernández MD LAB_1 Performing Organization Address City/State/ZIP Code Phon e Number [facility] [id number] [place] [address] AST (SGOT) [AST] (08/09/2020 2:11 PM CDT) athologist Signature AST (SGOT) 17 10 - 40 U/L 08/09/2020 [facility] 5:09 PM CDT LABORATORY Specimen Anatomical Collection Method / Collection Time Recei andrade Time (Source) Location / Volume Laterality Blood Venipuncture / 08/09/2020 2:11 08/09/2020 2:11 Unknown PM CDT PM CDT Shana Hernández MD LAB_1 Performing Organization Address [facility]/ZIP Code Phon e Number [facility] [address] [place], [place] [phone] Platelet Count [PLT] (08/09/2020 2:11 PM CDT) athologist Signature Platelets 228 150 - 450 08/09/2020 [facility] x10(9)/L 4:45 PM CDT LABORATORY Specimen Anatomical Collection Method / Collection Time Recei andrade Time (Source) Location / Volume Laterality Blood Venipuncture / 08/09/2020 2:11 08/09/2020 2:11 Unknown PM CDT PM CDT Shana Hernández MD LAB_1 Performing Organization Address [facility] Code Phon e Number [facility] [address] [place], [place] [phone] Creatinine [CREAT] (08/09/2020 2:11 PM CDT) athologist Signature Creatinine 0.60 0.55 - 08/09/2020 [facility] 1.02 mg/dL 5:09 PM CDT LABORATORY GFR, Estimated >60 >60 08/09/2020 [facility] mL/min/1.7 5:09 PM CDT LABORATORY 3m2 Specimen Anatomical Collection Method / Collection Time Recei andrade Time (Source) Location / Volume Laterality Blood Venipuncture / 08/09/2020 2:11 08/09/2020 2:11 Unknown PM CDT PM CDT Shana Hernández MD LAB_1 Performing Organization Address [facility] Phon e Number [facility] [address] [place], [place] [phone] documented in this encounter Visit Diagnoses Diagnosis Pre-eclampsia in third trimester Mild or unspecified pre-eclampsia, antep artum documented in this encounter Care Teams Channel Cementer Relationship Specialty Start Date End Date Palmira Lim MD PCP - General 05/08/[address] [place], [place] [address] documented as of this encounter
--- OUTSIDE RECORDS SUMMARY | 2021-12-08 10:24 | XMS_ITS | Encounter Summary ---
:1999 Author Organization [employer] Address [address] [place] [address] Care Team Providers Name Role Phone Palmira Lim MD Primary Care Provider Encounter Details Date Type Department Care Team Description 05/13/2021 Lab Visit [facility] 3850 Type 1 di abetes mellitus without complication (HRC); Laboratory Subclinical hypothyroidism [address] [place] [address] Social History Tobacco Use Types Packs/Day Years [...] Name Priority Date/Time Associated Diagnosis Comme nts ALBUMIN/CREAT RATIO Routine 05/13/2021 3:33 PM Type 1 diabetes Results for this CDT mellitus without procedure a re in complication (HR C) the results Subclinical section. hypothyroidism CREATININE / GFR Routine 05/13/2021 3:26 PM Type 1 diabetes Re sults for this CDT mellitus without procedure a re in complication (HRC) the resul ts section. TSH, SENSITIVE Routine 05/13/2021 3:26 PM Type 1 diabetes Resu lts for this CDT mellitus without procedure a re in complication (HR C) the results Subclinical section. hypothyroidism documented in this encounter Results Albumin/Creatinine Ratio,Random Urine (05/13/2021 3:33 PM CDT) athologist Signature Albumin/Creati 19 <30 mg/g 05/13/2021 [facility] nine Ratio, 5:08 PM CDT 3850 LABORATORY Urine, Random Albumin, 23.5 mg/L 05/13/2021 [facility] Urine, Random 5:08 PM CDT [address] LABORATOR Y Creatinine, 123 >20 mg/dL 05/13/2021 [facility] Urine, Random mg/dL 5:08 PM CDT [address] LABORATOR Y Specimen Anatomical Collection Method Collection Time Receive d Time (Source) Location / / Volume Laterality Urine Non-blood 05/13/2021 3:33 PM 3:33 Collection / CDT PM CDT Unknown Lilian FINNEGAN LAB_1 Performing Organization Address City/[facility] Code Phon e Number [facility] [address] [place], [place] [address] [phone] Creatinine / GFR (05/13/2021 3:26 PM CDT) athologist Signature Creatinine 0.73 0.55 - 05/13/2021 [facility] 1.02 mg/dL 5:24 PM CDT 3850 LABORATORY GFR, Estimated >60 >60 05/13/2021 [facility] mL/min/1.7 5:24 PM CDT 3850 LABORATORY 3m2 Specimen Anatomical Collection Method / Collection Time Recei andrade Time (Source) Location / Volume Laterality Blood Venipuncture / 05/13/2021 3:26 05/13/2021 3:26 Unknown PM CDT PM CDT Rami M Almokayyad MBBS LAB_1 Performing Organization Address City/State/ZIP Code Phon e Number [facility] [address] [place] [phone] LABORATORY [facility] [phone] (ABNORMAL) TSH (05/13/2021 3:26 PM CDT) [facility] Method Time Signature TSH, Sensitive 123.73 (H) 0.30 - 05/13/2021 [facility] 4.50 8:00 PM CDT LABORATORY uIU/mL Specimen Anatomical Collection Method / Collection Time Recei andrade Time (Source) Location / Volume Laterality Blood Venipuncture / 05/13/2021 3:26 05/13/2021 3:26 Unknown PM CDT PM CDT Lilian FINNEGAN LAB_1 Performing Organization Address City/[facility]/ZIP Code Phon e Number [facility] [address] [place] [address] documented in this encounter Visit Diagnoses Diagnosis Type 1 diabetes mellitus without complic ation (HRC) Type I (juvenile type) diabetes mellitus without mention of complication, not stated as uncontrolled Subclinical hypothyroidism Other specified acquired hypothyroidism documented in this encounter Care Teams Investigations Consultant Relationship Specialty Start Date End Date Palmira Lim MD PCP - General 05/08/[address] [place] [phone] documented as of this encounter
--- OUTSIDE RECORDS SUMMARY | 2021-12-08 10:24 | XMS_ITS | Encounter Summary ---
:1999 Author Organization [employer] Address [address] [place] [address] Care Team Providers Name Role Phone Palmira Lim MD Primary Care Provider Reason for Visit Reason Comments POST- Encounter Details Date Type Department Care Team Description 10/11/2020 Visit [facility] Della Meehan MD POST- [facility] [address] [place] [id number] [place] [address] [place], [place] [phone] (Wo rk) [id number] [phone] Social History Tobacco Use Types Packs/Day Years [...] AM CDT documented as of this encounter Last Filed Vital Signs Vital Sign Reading Time Taken Comments Blood Pressure 130/85 10/11/2020 1:31 PM CDT Pulse 100 10/11/2020 1:31 PM CDT Temperature - - Respiratory Rate - - Oxygen Saturation - - Inhaled Oxygen Concentration - - Weight 72.1 kg (159 lb) 10/11/2020 1:31 PM CDT Height - - Body Mass Index 28.17 09/19/2020 4:32 PM CDT documented in this encounter Progress Notes Mechelle Meehan MD - 10/11/2020 1:30 PM CDT [facility] CC: visit Subjective Nabila Serna is a very pleasant 20 y.o. who presents for her 6 week visit. She had a Male infant by spontaneous vaginal delivery on 08/15/20 at 36+5 wga (EBL 500 mL, complex 2nd degree laceration), which was complicated by 120 sec shoulder dystocia, resulting in fracture of left humerus. weighed 9# 11oz. She is on abstinence for contraception. She is pumping and bottle feeding. Her is doing well. She has not had intercourse. She has not had a menses. She has not had any blues. She has good bowel and bladder function. She has no other complaints. She lives with boyfriend Ty and his sister. She feels well supported and safe at home. - Pre-E with SF: she was discharged on Nifedipine 90mg daily and Labetalol 400mg BID. She no longer is taking those meds. She states she stopped taking them because of persistent dizziness. Bps at homehave been 130s/80s; does not reach mild range. She denies headache, vision changes, chest pain, shortness of breath, abdominal pain, nausea, vomiting, or increased swelling. - DM1: followed by Endo - Hypothyroid: on 50mcg levothyroxine daily [place] Depression Screen: 1 Objective LMP 11/27/2019 (Exact Date) Estimated body mass index is 30.08 kg/m?? as calculated from the following: Height as of 09/19/20: 5' 3 (1.6 m). Weight as of 09/19/20: 169 lb 12.8 oz (77 kg). Gen: well developed, well nourished in no acute distress Breasts: symmetric, nontender, no masses, lymphadenopathy, or discharge. Abd: Soft, nontender, no masses LE: along inner thighs, there are 2 skin tags (one on right and one of left), measuring about 0.5cm with narrow base; flesh colored SSE: normal external genitalia. Architecture intact. Bulbocav reflexes intact b/l. No vulvar, vaginal, or cervical lesions. Perineum healed well, but not completely (there is an area of granulation tissue along the laceration on the perineal body) . No surrounding erythema, induration, or fluctuance. Vaginal mucosa pink and well ruggated. Minimal white discharge. Pelvic: small, anteverted, mobile uterus. No CMT. No adnexal masses. Assessment 20 y.o. s/p (complicated by shoulder dystocia with resultant L humeral fracture, preE with SF, and DM1) on 08/15/20, visit Plan - Recovering well. Mood stable, no SI/HI. - Recommended abstinence for an additional 2 weeks to allow perineum to heal more completely. No evidence of infection. - Skin tags on thighs: she would like to have these removed if they do not decrease in size of the next several months. Offered to either excise in clinic, or refer to derm. She opts to have them excised in clinic in the future. - Pre-E with SF: no longer on any antihypertensives. No s/sx of preE. Will f/u with PCP - DM1: care per Endo - Hypothyroidism: cont Levothyroxine 50mcg daily. Care per endo - Delivery complicated by shoulder dystocia in setting of LGA: reviewed risks of recurrence and importance of well controlled DM1 and maintaining healthy body weight. - Cervical cancer screen: PAP collected today. Aware results will be via mail. - Contraception: declines; reviewed proper timing in between pregnancies - Return for next annual exam, or sooner if desired. Mechelle Meehan MD 10/11/2020, 1:21 PM documented in this encounter Plan of Treatment Not on filedocumented as of this encounter Procedures Procedure Name Priority Date/Time Associated Diagnosis Comme nts PAP TEST Routine 10/11/2020 2:06 PM Cervical cancer Result s for this CDT screening procedure are i n the results section . documented in this encounter Results PAP Test (10/11/2020 2:06 PM CDT) Component Value Ref Test Analysis Performed At [facility] Range Method Time Signature Case Report Pap ? Case: [id number] ? 10/19/2020 [facility] Authorizing Provider: ??Mechelle Meehan MD ? Collected: ? 10/11/2020 1406 ? 2:41 PM LABORAT ORY Ordering Location: ? [facility] ? Received: ?10/11/2020 1621 ? CDT ? Services[facility] ? First Screen: ? Ahn, Tara D, CT ? (ASCP) ? Specimen: ?Pap Test, Rou jamila, Cervix/Endocervix ? Pap Specimen Satisfactory for 10/19/2020 [facility] Adequacy evaluation, 2:41 PM LABORATORY endocervical/hendrickson CDT sformation zone component present. Pap Negative for 10/19/2020 [facility] Electr onically Interpretation intraepithelial 2:41 PM LABORATOR Y signed by lesion or CDT Alejo Ahn malignancy D, CT ( CP) on (NIL). 10/19/2020 at 2:41 PM Pap Disclaimer The Pap test is a 10/19/2020 METHOD IST screening test 2:41 PM LABORATORY designed to aid CDT in the detection of cervical cancer and its precursor lesions. It is not a diagnostic procedure and should not be used as the sole means of detecting cervical cancer. Both false-positive and false-negative results may occur. Gross The specimen is 10/19/2020 [facility] Description received in 2:41 PM LABORATORY [facility] fixative CDT and properly labeled. 1 Pap-stained [facility] slide is prepared. Embedded Images 10/19/2020 [facility] 2:41 PM LABORATORY CDT Specimen Anatomical Collection Method Collection Time Receive d Time (Source) Location / / Volume Laterality Other Specimen ENTIRE ENDOCERVIX 10/11/2020 2:06 PM 4:21 Type / Unknown CDT PM CDT Comment: LMP: Patient's last menstrual p eriod was 11/27/2019 (exact date). Mechelle Meehan MD LAB PATHOLOGY Performing Organization Address City/State/ZIP Code Phon e Number [facility] [address] [place] [address] documented in this encounter Visit Diagnoses Diagnosis care following vaginal delive ry - Primary Routine follow-up Cervical cancer screening Screening for malignant neoplasm of the cervix Pre-existing type 1 diabetes mellitus du ring in second trimester Hypothyroidism, unspecified type (HRC) Pre-eclampsia, severe, delivered Severe pre-eclampsia, with delivery Skin tag Unspecified hypertrophic and atrophic co ndition of skin documented in this encounter Care Teams Web Publisher Relationship Specialty Start Date End Date Palmira Lim MD PCP - General 05/08/06 [address], [place] [address] documented as of this encounter
--- OUTSIDE RECORDS SUMMARY | 2021-12-08 10:24 | XMS_ITS | Encounter Summary ---
:1999 Author Organization [employer] Address [address] [place] [address] Care Team Providers Name Role Phone Palmira Lim MD Primary Care Provider Reason for Visit Reason Comments Diabetes Encounter Details Date Type Department Care Team Description 08/07/2021 Office Visit Lilian Jamil Type 1 diab etes mellitus without complication (HRC) (Primary Dx); Endocrinology MKAIN Subclinical hypothyroidism; [address] Uncontrolled type 1 diabetes mellitus with hyperglycemia (HRC) [place] [address] [address] [phone] [place] [address] Social History Tobacco Use Types [...] Pulse 78 08/07/2021 3:26 PM CDT Temperature - - Respiratory Rate - - Oxygen Saturation - - Inhaled Oxygen Concentration - - Weight 61.6 kg (135 lb 14.4 oz) 08/07/2021 3:26 PM CDT Height 160 cm (5' 3) 08/07/2021 3:26 PM CDT Body Mass Index 24.07 08/07/2021 3:26 PM CDT documented in this encounter Progress Notes Lilian Maldonado MBBS - 08/07/2021 3:15 PM CDT [facility] Department of Endocrinology, Diabetes and Metabolism Clinic Note Name: Nabila Serna Cc: Follow up for T1DM. HPI: Nabila Serna is a 20 y.o. female #1 T1DM: Diagnosed in 2015, no known complications, she has history of non compliance, had a DKA in 03/2018. She is 10 months post . She is using lantus 35units QHS and Novolog 1 per 8 gm with correction (SF 40, target 140). She havebeen forgetting to bolus before eating and her BG are running very high. She is using CGM with Dexcom, CGM data for 2 weeks were reviewed, average glucose was 255, SD 100. 48% >250, 31%181-250, 22% in range (70-180), 1%<70 and 1%<54. Glucose tracing indicates a trend of hyperglycemia after meals She is also not taking her thyroid hormone. A1C today was >14. No history of hypoglycemia unawareness. No peripheral neuropathy symptoms, Creatinine from 07/2021 was normal and had normal urine microalbumin. Labs: Reviewed and summarized in the HPI. Assessment and Plan: Nabila Serna is a 20 y.o. female: #1 T1DM: uncontrolled, no triopathy. A1C 14. Counseled the patient about the importance of DM control and grave consequences of uncontrolled DM. Including having another DKA that can be fatal. Stop snacking and reduce carb intake 30-45 gm per meal. Continue lantus the same. Use Novolog 6 units TID AC with correction 2 units for every 50 above 150. I will request [facility] to get her insulin. Continue CGM use. RTC in 3 months. #2 Hypothyroidism: Restart levothyroxine 50 mcg daily. KAIN Bruce Cookie Breaker Shaji Villatoro - 08/07/2021 3:15 PM CDT Images from the original note were not included. documented in this encounter Plan of Treatment Not on filedocumented as of this encounter Procedures Procedure Name Priority Date/Time Associated Diagnosis Comme nts POCT GLYCOSYLATED Routine 08/07/2021 3:49 Type 1 diabetes Resu lts for this HEMOGLOBIN (HGB A1C) PM CDT mellitus without pro cedure are in complication (HR C) the results Subclinical section. hypothyroidism documented in this encounter Results (ABNORMAL) POCT glycosylated hemoglobin (Hb A1C) (08/07/2021 3:49 PM CDT) Analysis Performed At Patho logist Time Signature Hemoglobin A1C 14.0 (A) 5.6 % POCT (Rapid) Comment: greater than 14 Cartridge Lot# [id number] POCT Specimen (Source) Anatomical Collection Method Collection Time Re ceived Time Location / / Volume Laterality Blood 08/07/2021 3:49 PM CDT Lilian FINNEGAN ET POINT OF CARE TEST ENTER/ EDIT ORDERABLES Performing Organization Address City/State/ZIP Code Phon e Number POCT documented in this encounter Visit Diagnoses Diagnosis Type 1 diabetes mellitus without complic ation (HRC) - Primary Type I (juvenile type) diabetes mellitus without mention of complication, not stated as uncontrolled Subclinical hypothyroidism Other specified acquired hypothyroidism Uncontrolled type 1 diabetes mellitus wi th hyperglycemia (HRC) documented in this encounter Care Teams Rehabilitation Program Coordinator Relationship Specialty Start Date End Date Palmira Lim MD PCP - General 05/08/06 [address] [place] [id number] documented as of this encounter
--- OUTSIDE RECORDS SUMMARY | 2021-12-08 10:24 | XMS_ITS | Encounter Summary ---
:1999 Author Organization [employer] Address [address] [place] [address] Care Team Providers Name Role Phone Palmira Lim MD Primary Care Provider Reason for Visit Reason Comments Diabetes Encounter Details Date Type Department Care Team Description 09/19/2020 Office Visit Lilian Jamil Type 1 diab etes mellitus without complication (HRC) (Primary Dx); Endocrinology M, KAIN Subclinical hypothyroidism [address] [address] [address] [phone] [place] [address] Social History Tobacco Use Types [...] Sign Reading Time Taken Comments Blood Pressure 125/90 09/19/2020 5:01 PM CDT Pulse 97 09/19/2020 4:32 PM CDT Temperature - - Respiratory Rate - - Oxygen Saturation - - Inhaled Oxygen Concentration - - Weight 77 kg (169 lb 12.8 oz) 09/19/2020 4:32 PM CDT Height 160 cm (5' 3) 09/19/2020 4:32 PM CDT Body Mass Index 30.08 09/19/2020 4:32 PM CDT documented in this encounter Progress Notes Shaji Villatoro - 09/19/2020 4:30 PM CDT Images from the original note were not included. Lilian Maldonado MBBS - 09/19/2020 4:30 PM CDT [facility] Department of Endocrinology, Diabetes and Metabolism Clinic Note Name: Nabila Serna Cc: Follow up for T1DM. HPI: Nabila Serna is a 20 y.o. female works in a [employer]. #1 T1DM: Diagnosed in 2015, no known complications, she has history of non compliance, had a DKA in 03/2018. She is 4 weeks post , baby had shoulder dystocia but recovered well. She is using lantus 24 units QHS and Novolog 1 per 8 gm with correction (SF 40, target 140). She is using CGM with Dexcom, CGM data for 2 weeks were reviewed, average glucose was 201, SD 101, GMI 8.1. 35% >250, 22%181-250, 32% in range (70-180), 7 %<70 and 4%<54. Glucose tracing indicates a trend of post dinner hyperglycemia due to snacking with no insulin coverage, and hypoglycemia overnight due to over correction at be time. A1C today was 7%. She is not taking her thyroid hormone. No history of hypoglycemia unawareness. No peripheral neuropathy symptoms, Creatinine from 01/2020 was normal and had normal urine microalbumin, BP today was 120/90. Physical Examination: Vitals: BP (!) 125/90 Pulse 97 Ht 5' 3 (1.6 m) Wt 169 lb 12.8 oz (77 kg) LMP 11/27/2019 (Exact Date) BMI 30.08 kg/m?? General: The patient is alert and oriented, no acute distress. Labs: Reviewed and summarized in the HPI. Assessment and Plan: Nabila Serna is a 20 y.o. female: #1 T1DM: Fairly controlled, no triopathy, A1C 7%. Counseled the patient about the importance of DM control and grave consequences of uncontrolled DM. Continue current MDI, stop snacking and reduce carb intake 30-45 gm per meal. Use 1/2 correction at bed time. Continue CGM use. RTC in 3 months. #2 Hypothyroidism: Restart levothyroxine 50 mcg daily. KAIN Bruce Beef Splitter documented in this encounter Plan of Treatment Not on filedocumented as of this encounter Procedures Procedure Name Priority Date/Time Associated Diagnosis Comme nts POCT GLYCOSYLATED Routine 09/19/2020 4:54 PM Subclinical Resu lts for this HEMOGLOBIN (HGB A1C) CDT hypothyroid ism procedure are in Type 1 diabetes the results mellitus without section. complication (HRC) documented in this encounter Results (ABNORMAL) POCT glycosylated hemoglobin (Hb A1C) (09/19/2020 4:54 PM CDT) P athologist Signature Hemoglobin A1C 7.0 (A) 5.6 % POCT (Rapid) Cartridge Lot# [id number] POCT Specimen (Source) Anatomical Collection Method Collection Time Re ceived Time Location / / Volume Laterality Blood 09/19/2020 4:54 PM CDT Lilian FINNEGAN ET POINT OF [...] hypothyroidism documented in this encounter Care Teams Bank Compliance Officer Relationship Specialty Start Date End Date Palmira Lim MD PCP - General 05/08/[address] [place], [place] [id number] documented as of this encounter
--- OUTSIDE RECORDS SUMMARY | 2021-12-08 10:24 | XMS_ITS | Encounter Summary ---
:1999 Author Organization [employer] Address [address] [place] [address] Care Team Providers Name Role Phone Palmira Lim MD Primary Care Provider Reason for Visit Reason Comments Diabetes Encounter Details Date Type Department Care Team Description 08/15/2020 Office Visit [facility] Lilian Maldonado Pre-existin g type 1 diabetes mellitus during in second trimester (Primary Dx); Endocrinology M, KAIN Subclinical hypothyroidism [address] [address] [facility] [phone] [place] [address] Social History Tobacco Use Types [...] Sign Reading Time Taken Comments Blood Pressure 140/100 08/15/2020 4:48 PM CDT Pulse 95 08/15/2020 4:30 PM CDT Temperature - - Respiratory Rate - - Oxygen Saturation - - Inhaled Oxygen Concentration - - Weight 107.9 kg (237 lb 12.8 oz) 08/15/2020 4:30 PM CDT Height - - Body Mass Index 42.12 07/18/2020 2:05 PM CDT documented in this encounter Progress Notes Lilian Maldonado MBBS - 08/15/2020 4:30 PM CDT [facility] Department of Endocrinology, Diabetes and Metabolism Clinic Note Name: Nabila Serna Cc: Follow up for T1DM. 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 female works in a [employer]. #1 T1DM: Diagnosed in 2015, no known complications, she has history of non compliance, had a DKA in 03/2018. She is currently using insulin Lantus 60 units QHS and insulin Novolog 1 unit per 2 gm CHO plus correction 1 per 30 above 120. She is 36+5 weeks with her first child, is progressing well, US from 07/09/2020 , weight was >99%. She uses Dexcom, CGM data for 2 weeks were reviewed, average glucose was 112, SD 54, GMI 6.0. 1% >250, 16%181-250, 56% in range (70-180), 16%<70 and 11%<54. A1C today was 6.6. She is having hypoglycemia overnight. She is taking levothyroxine 50 mcg daily Thu-Thu, and 100 mcg on Thu and Sundays for subclinical hypothyroidism. No history of hypoglycemia unawareness. No peripheral neuropathy symptoms, Creatinine from 01/2020 was normal and had normal urine microalbumin, BP today was 140/100, no headaches or vision changes, LE swelling is not worse. Physical Examination: Vitals: BP (!) 140/100 Pulse 95 Wt 237 lb 12.8 oz (107.9 kg) LMP 11/27/2019 (Exact Date) BMI42.12 kg/m?? General: The patient is alert and oriented, no acute distress. Labs: Reviewed and summarized in the HPI. Assessment and Plan: Nabila Serna is a 19 y.o. female: #1 T1DM: Fairly controlled, no triopathy, complicated by . A1C 6.6. Counseled the patient about the importance of DM control and grave consequences of uncontrolled DM. Reviewed glycemic targets in . Change lantus to 48 units QHS. Continue Novolog 1 per 2 , using 1 per 30 above 120 for correction, she needs to do that before eachmeal. Limit carbs to less than 40 gm per meal. Use DEXCOM. On Thursday day of induction, take only 40 units of lantus, and reduce that to 30 units post delivry. Use Novolog correction during induction every 3 hrs as following: If BG 60-100. No insulin. 101-150 use 2 units 151-200 use 4 units and >200 use 6 units. Change Novolog to 1 per 5 gm post delivery. Continue CGM use during labor. She will go to the ER if having headaches, abdominal pain, changes in vision or LE swelling. RTC in 4 weeks. #2 Hypothyroidism: Continue levothyroxine 50 mcg daily Thu-Thu, and 100 mcg Thu and Sundays. Change that to 50 mcg daily post delivery. KAIN Bruce Want Ad Receiver Shaji Villatoro - 08/15/2020 4:30 PM CDT Images from the original note were not included. documented in this encounter Plan of Treatment Not on filedocumented as of this encounter Procedures Procedure Name Priority Date/Time Associated Comments Diagnosis POCT GLYCOSYLATED Routine 08/16/2020 8:00 AM Pre-existing type 1 Results for this HEMOGLOBIN (HGB A1C) CDT diabetes mellitus pr ocedure are in during in the resu lts second trimester section. documented in this encounter Results (ABNORMAL) POCT glycosylated hemoglobin (Hb A1C) (08/16/2020 8:00 AM CDT) athologist Signature Hemoglobin A1C 6.6 (A) 5.6 % POCT (Rapid) Cartridge Lot# [id number] POCT Specimen (Source) Anatomical Collection Method Collection Time Re ceived Time Location / / Volume Laterality Blood 08/16/2020 8:00 AM CDT Lilian FINNEGAN ET POINT OF CARE TEST ENTER/ EDIT ORDERABLES Performing Organization Address City/State/ZIP Code Phon e Number POCT documented in this encounter Visit Diagnoses Diagnosis Pre-existing type 1 diabetes mellitus du ring in second trimester - Primary Subclinical hypothyroidism Other specified acquired hypothyroidism documented in this encounter Care Teams Ambulance Driver Paramedic Relationship Specialty Start Date End Date Palmira Lim MD PCP - General 05/08/[address] [place] [id number] documented as of this encounter
--- OUTSIDE RECORDS SUMMARY | 2021-12-08 10:24 | XMS_ITS | Clinical Summary ---
:2000 Author Organization [employer] Address [address] [address] Phone Care Team Providers Name Role Phone Elsewhere, Pcp Primary Care Provider Unavailable Allergies Active Allergy Reactions Severity Noted Date Comments Acetaminophen Is not suppose d to take while using insulin pump Medications Medication Sig Dispensed Refills Start Date End Date Status isulin degludec (TRESIBA Inject 24 Units 0 Active FLEXTOUCH) 100 UNIT/ML under the skin Solution Pen-injector every 24 hours. pen injection insulin lispro (HUMALOG) Inject 1 Units 0 Active 100 UNIT/ML pen under the skin injectionIndications: with meals and Type 1 Diabetes snacks. Mellitus, 1 unit for every 8 grams of carbohydrates consumed insulin lispro (HUMALOG) Inject under the 0 Active 100 UNIT/ML pen skin every three injectionIndications: 1 hours as needed. unit for every 40mg/dL over 140mg/dL citalopram (CELEXA) 20 Take 1 Tab by 0 12/26/2016 Active MG tabletIndications: mouth every Depression morning. amphetamine-dextroamphet Take 1 Tab by 60 Tab 0 12/26/2016 Active amine (ADDERALL) 5 MG mouth two times tabletIndications: a day (breakfast Attention Deficit and lunch). To Hyperactivity Disorder avoid insomnia, last daily dose should be taken no less than 6 hours before bed. Active Problems Problem Noted Date Diabetes mellitus, insulin dependent (IDDM), uncontrol led 12/18/2016 Overview: Diagnosed August 2015. No FH of diabetes. Insulin overdose, intentional self-harm, subsequent en counter 12/18/2016 Suicidal behavior 12/18/2016 Adjustment disorder with depressed mood 12/18/2016 Parent-child relational problem 12/18/2016 ADHD (attention deficit hyperactivity disorder), combi libra type 12/18/2016 Immunizations Name Administration Dates Next Due DTaP <7 years 11/06/2004, 03/30/2001, 06/29/2000, 02/04/2000, 1999 Hepatitis A, Ped/Adolescent 2 dose 11/04/2013, 01/08/2011 Hepatitis B/HIB (Comvax) 03/30/2001, 02/04/2000, 1999 Human Papilloma Virus Quadrivalent 05/20/2012, 10/28/2010, 0 03/30/2001 IPV 11/06/2004, 06/29/2000, 02/04/2000, 1999 Influenza A H1n1 01/19/2009 Influenza Live Trivalent Intranasal 10/28/2010 Influenza Quad Preservative Free 12/16/2016, 01/09/2014 Influenza Quad Split 11/26/2015 Influenza Seasonal Inj A,B 01/10/2013, 11/29/2008 Influenza Seasonal Inj A,B 04/16/2006 Preservative Free MMR 11/06/2004, 03/30/2001 Meningococcal MCV4 (Menveo) 2 Vials 05/20/2012 Pneumococcal Conjugate, 06/29/2000, 02/04/2000, 1999 (Prevnar)7-valent Tdap (7 years and older) 10/28/2010 Varicella (Varivax) 10/28/2010, 03/30/2001 Medical History Medical History Date Comments Diabetes mellitus, insulin dependent 12/18/2016 Terri gnosed August 2015. No FH of (IDDM), uncontrolled diabetes. Insulin overdose, intentional 12/18/2016 self-harm, subsequent encounter Parent-child relational problem 12/18/2016 ADHD (attention deficit hyperactivity 12/18/2016 disorder), combined type Social History Tobacco Use Types Packs/Day Years Used Date Current Every Day Smoker Cigarettes 0.25 0.5 Sta rted: 08/30/2016 Smokeless Tobacco: Never Used Tobacco Cessation: Ready to Quit: No; Co unseling Given: Yes Alcohol Use Standard Drinks/Week Comments No 0 (1 standard drink = 0.6 oz pure alcoho l) Sex Assigned at Date Recorded Not on file Obstetrics History Last Filed Vital Signs Vital Sign Reading Time Taken Comments Blood Pressure 112/76 02/06/2017 10:04 AM IMPREGNATOR OPERATOR Pulse 101 02/06/2017 10:04 AM IMPREGNATOR OPERATOR Temperature 36.9 ??C (98.5 ??F) 02/06/2017 10:04 AM IMPREGNATOR OPERATOR Respiratory Rate 20 02/06/2017 10:04 AM IMPREGNATOR OPERATOR Oxygen Saturation 92% 02/06/2017 10:04 AM IMPREGNATOR OPERATOR Inhaled Oxygen Concentration - - Weight 63.9 kg (140 lb 12.8 oz) 02/06/2017 10:04 AM IMPREGNATOR OPERATOR Height 165.1 cm (5' 5) 02/06/2017 10:04 AM IMPREGNATOR OPERATOR Body Mass Index 23.43 02/06/2017 10:04 AM IMPREGNATOR OPERATOR Plan of Treatment Health Maintenance Due Date Last Done Comments Cervical Cancer Screening 1999 Last pap w/ HPV Testing 1999 Last pap w/o HPV Testing 1999 COVID-19 Vaccine (#1) 03/04/2000 DIABETES MICROALBUMIN Q1 09/01/2017 YEAR (Standing Order) DIABETIC EYE EXAM 09/01/2017 Chlamydia Screening 12/20/2017 12/20/2016 TETANUS (Standing Order) 10/28/2020 10/28/2010, 11/06/2004, 03/30/2001, Additional history exists Influenza Vaccine Seasonal 10/31/2021 12/16/2016, 6, (Standing Order) (#1) 01/09/2014, Additional history exists Pneumococcal/PCV Vaccine: Aged Out 06/29/2000, 02/04/2000 , No longer eligible Pediatrics (0-5 yrs) and 1999 based o n patient's age At-Risk Patients (6-64 yrs) to c graham this topic (Standing Order) PERTUSSIS (Standing Order) Completed 10/28/2010, 5, 03/30/2001, Additional history exists HPV Vaccine female Completed 05/20/2012, 10/28/2010, (Standing Order) 03/30/2001 Insurance Payer Benefit Plan / Subscriber Effective Phone Address Type Group ID Dates [facility] [id number] 08/30/2018-Pr [phone] [address] [facility] PRIME esent [phone] [place] [phone] [facility] [id number] 08/30/2018-Pr [phone] [address] [facility] PRIME esent [phone] [facility] [place] [phone] Guarantor Name Account Type Relation to Date of Phone Billing Patient Address TWILA BANKS Personal/Family Mother 1887 [address] (Home) [place] [id number] TWILA BANKS [facility] Mother 10[birth year]08/[birth year]87 [phone] [address]) [place] [phone] Care Teams Hazardous Waste Remover Relationship Specialty Start Date End Date Elsewhere, Pcp PCP - General 02/06/17
--- OUTSIDE RECORDS SUMMARY | 2021-12-08 10:24 | XMS_ITS | Encounter Summary ---
:2000 Author Organization [employer] Address [address] [place] [address] Care Team Providers Name Role Phone Palmira Lim MD Primary Care Provider Encounter Details Date Type Department Care Team Description 12/17/2020 Immunization [place] [address] Family Need for prophylactic Medicine vaccination and [address] [place] [address] influenza (Primary Dx) [phone] Social History Tobacco Use Types Packs/Day Years [...] as of this encounter Visit Diagnoses Diagnosis Need for prophylactic vaccination and in oculation against influenza - Primary documented in this encounter Care Teams Technical Writer Relationship Specialty Start Date End Date Palmira Lim MD PCP - General 05/08/[address] [place] [address] documented as of this encounter
--- OUTSIDE RECORDS SUMMARY | 2021-12-08 10:24 | XMS_ITS | Encounter Summary ---
:2000 Author Organization [employer] Address [address] [place] [address] Care Team Providers Name Role Phone Palmira Lim MD Primary Care Provider Reason for Visit Reason Comments Encounter Details Date Type Department Care Team Description 09/25/2020 Telephone [facility] [address] Olga Grigsby, ANDRE [address] [place], [place] [id number] Social History Tobacco Use Types Packs/Day Years [...] AM CDT documented as of this encounter Miscellaneous Notes Note - Olga Grigsby RN - 09/25/2020 10:16 AM CDT Placed call to patient to follow up on recent outpatient visit. Left message to return my call. documented in this encounter Plan of Treatment Not on filedocumented as of this encounter Visit Diagnoses Not on filedocumented in this encounter Care Teams Charge Entry Specialist Relationship Specialty Start Date End Date Palmira Lim MD PCP - General 05/08/06 [address], [place] [address] documented as of this encounter
--- OUTSIDE RECORDS SUMMARY | 2021-12-08 10:24 | XMS_ITS | Encounter Summary ---
:2000 Author Organization [employer] Address [address] [place] [address] Care Team Providers Name Role Phone Palmira Lim MD Primary Care Provider Reason for Visit Reason Onset Date Comments Refill 01/23/2021 insulin glargine (LA NTUS SOLOSTAR) 100 UNIT/ML pen Encounter Details Date Type Department Care Team Description 01/23/[address] [facility] [address] Fausto Maldonado, Re khurram (insulin Endocrinology MBBS glargine (LANTUS [address] [place] [address]) 100 UN[address]/ML [address] [place]) [place] [id number] Social History Tobacco Use Types Packs/Day Years [...] documented as of this encounter Nursing Notes Jc Akhtar, RN - 01/23/2021 2:50 PM CST Renewed medication per medication refill protocol. Requested Prescriptions Signed Prescriptions Disp Refills ??? insulin glargine (LANTUS SOLOSTAR) 100 UNIT/ML pen 30 mL 1 Sig: Inject 24 Units subcutaneously daily. Indications: Diabetes Mellitus Authorizing Provider: FAUSTO MALDONADO Ordering User: CJ AKHTAR TE ENCODING CENTER MANAGER Interface, Out Surescripts Prov Query - 01/23/2021 2:40 PM CST insulin glargine (LANTUS SOLOSTAR) 100 UNIT/ML pen Endocrinology: Diabetes - Insulins -> The request contains a note from the pharmacy. -> Unable to determine if patient is due for a renewal, please review. -> Refill x 3 months (until due for a(n) Rapid A1C check) Last qualifying visit: 09/19/2020 (in [facility]) Next scheduled visit: None Last ordered by FAUSTO MALDONADO: 05/16/2020 (252 days ago) QTY: 30, Refills: 3, Sig: inject 40-60units subcutaneously daily. indications: diabetes mellitus (unchanged) Rapid A1C : 7 % on 09/19/2020 PATIENT IS DUE FOR: - HBA1C (PN ONLY) Powered by [employer], Reference: [id number], 01/23/2021 2:40:32 PM REMOTE ENCODING CENTER MANAGER, Pool:ENDO PN NURSING TEAM 1 ([id number]) TE ENCODING CENTER MANAGER documented in this encounter Plan of Treatment Not on filedocumented as of this encounter Visit Diagnoses Diagnosis Type 1 diabetes mellitus without complic ation (HRC) - Primary Type I (juvenile type) diabetes mellitus without mention of complication, not stated as uncontrolled documented in this encounter Care Teams Database Developer Relationship Specialty Start Date End Date Palmira Lim MD PCP - General 05/08/06 [address] [place] [address] documented as of this encounter
--- OUTSIDE RECORDS SUMMARY | 2021-12-08 10:24 | XMS_ITS | Encounter Summary ---
:2000 Author Organization [employer] Address [address] [address] Phone Care Team Providers Name Role Phone Elsewhere, Pcp Primary Care Provider Unavailable Reason for Visit Reason Comments External Lab Results Encounter Details Date Type Department Care Team Description 02/25/2017 Abstract [facility] Abstract, Provider, External Lab Results [address] [facility] [place] [address] Social History Tobacco Use Types Packs/Day Years [...] Name Priority Date/Time Associated Diagnosis Comme nts EXTERNAL COMPR MET Routine 12/16/2016 Results f or this PANEL procedure are i n the results section . EXTERNAL HEMOGRAM Routine 12/16/2016 Results fo r this procedure are i n the results section . documented in this encounter Results (ABNORMAL) EXTERNAL COMPR MET PANEL (12/16/2016) Analysis Performed At Patho logist Time Signature EXTERNAL SODIUM 141 135 - 149 OUTSIDE mmol/L LABORATORY EXTERNAL 3.2 (A) 3.6 - 5.1 OUTSIDE POTASSIUM mmol/L LABORATORY EXTERNAL 103 96 - 114 OUTSIDE CHLORIDE mmol/L LABORATORY EXTERNAL CO2 25 20 - 32 OUTSIDE mmol/L LABORATORY EXTERNAL 96 60 - 115 OUTSIDE GLUCOSE mg/dL LABORATORY EXTERNAL BUN 10 5 - 24 OUTSIDE mg/dL LABORATORY EXTERNAL 0.6 0.6 - 1.2 OUTSIDE CREATININE mg/dL LABORATORY EXTERNAL 9.0 8.7 - 10.8 OUTSIDE CALCIUM mg/dL LABORATORY EXTERNAL 22 13 - 69 OUTSIDE ALT(SGPT) U/L LABORATORY EXTERNAL 12 12 - 35 OUTSIDE AST(SGOT) U/L LABORATORY Provider Abstract MD [facility] Performing Organization Address City/State/ZIP Code Phon e Number OUTSIDE LABORATORY EXTERNAL HEMOGRAM (12/16/2016) P athologist Signature EXTERNAL WBC 7.20 5.00 - OUTSIDE 10.00 [facility] Comment: (see [facility] record s scanned 12/16/2016) EXTERNAL RBC 4.81 3.90 - 5.03 M/UL OUTSIDE LA BORATORY EXTERNAL HGB 13.3 12.0 - 15.5 GM/DL OUTSIDE L ABORATORY EXTERNAL HCT 39.3 34.9 - 44.5 % OUTSIDE LABOR ATORY EXTERNAL MCV 82 82 - 98 FL OUTSIDE LABORATO RY EXTERNAL MCH 28 25 - 35 PG OUTSIDE LABORATO RY EXTERNAL MCHC 34 32 - 36 GM/DL OUTSIDE LABO RATORY EXTERNAL RDW OUTSIDE LABORATOR Y EXTERNAL PLATELETS 309 150 - 450 K/UL OUTSID E LABORATORY Provider Abstract MD [facility] Performing Organization Address City/State/ZIP Code Phon e Number OUTSIDE LABORATORY documented in this encounter Visit Diagnoses Not on filedocumented in this encounter Care Teams Varitype Operator Relationship Specialty Start Date End Date Elsewhere, Pcp PCP - General 02/06/17 documented as of this encounter
--- OUTSIDE RECORDS SUMMARY | 2021-12-08 10:24 | XMS_ITS | Encounter Summary ---
:2000 Author Organization [email or web address] Address [address] [place] [address] Care Team Providers Name Role Phone Palmira Lim MD Primary Care Provider Encounter Details Date Type Department Care Team Description 09/14/2020 Encounter [facility] [address] [place], [place] [id number] Social History Tobacco Use Types Packs/Day Years [...] as of this encounter Patient Instructions Patient InstructionsOlga Grigsby RN - 09/14/2020 1:00 PM CDT Plan for Nabila and Janusz ?? Feed Janusz a minimum of 8 times over 24 hours, or about every 2-4 hours. ?? Keep time at the breast positive. If Janusz is too frustrated, try to calm him first before attempting to latch him. If he is unable to latch, offer him his bottle and try again at the next feeding. ?? Roll your nipple to help shape and tamara as needed. Use your nipple shield as a tool to help Janusz latch. Try to hand express so the shield is filled with milk. ?? To assure the best and most comfortable latch, the baby's mouth must cover the entire nipple portion of the shield. If they are not on deep enough this may cause painful pinching of the nipple and will fail to stimulate the milk supply. ?? Encourage a productive nursing pattern with large jaw movements and frequent swallows. ?? Wash the nipple shield in hot soapy water after each use. ?? Continue to pump at feeding times, and Janusz will still need a bottle of EBM after breastfeedingfor now. I will give you a call next week for an update, but please call sooner with any questions at [phone] Janusz's naked weight today is 10 lb 14 oz Intake at the breast today was 37 ml You are doing a great job, keep it up!! Olga Grigsby RN 09/14/2020 documented in this encounter Miscellaneous Notes Note - Olga Grigsby RN - 09/14/2020 1:00 PM CDT Summary Pt comes in today with concerns about not latching. Infant currently taking bottles of EBM and pt with abundant milk supply. Pt tries latching 1x per day but infant gets very frustrated. born at 36+6 with NICU staty for 19 days for feeding, breathing, and blood sugar issues. Infant with fractured left arm during delivery per pt and follow up with [facility] on Thursday. Pt has type Idiabetes and hypothyroidism controlled with levothyroxine. 4 week old infant's naked weight today is 10 lb 14 oz, which is a 2 oz gain in the last 2 days. Infant with repeated attempts at latching, able to latch with size 20 mm nipple shield and nursed for about 7 minutes before becoming frustrated. Nipple shield filled with milk. Infant unable to latch again and bottle of EBM was offered by patient. Total transfer at breast today 37 ml. Discussed keeping breast positive and attempting to latch first at feeding times. Keep infant at breast as long as he is active. Continue to offer bottles of EBM and pump after feeding times. Lactationto follow up early next week for update. Pt is comfortable with plan and will call sooner with any questions. ASSESSMENT Nabila Serna, Date of : 2000, Age:20 y.o. at Gestational Age: 36w6d BACKGROUND AND PREVIOUS EXPERIENCE Person Making Referral: patient Date of Referral: 09/13/20 Maternal Reason for Referral: h/o bottle feeding expressed breastmilk Reason for Referral: 35-37 weeks gestation (36+6) Currently : yes History: no Breast Changes: enlargement MATERNAL ASSESSMENT Size Issue, Bilateral: no Shape, Left: round Shape, Right: round Density, Bilateral: filling Density, Bilateral: filling Areola, Bilateral: dense Nipples, Bilateral: everts with stimulation Nipple Conditions, Bilateral: intactSigns/Symptoms of Infection: No Infertility History: no FEEDING ASSESSMENT Maternal Preparation: breast care Maternal Emotional State: assist needed Positioning: clutch/football Signs of Milk Transfer: audible swallow Date of Referral: 09/13/20 Milk Ejection Reflex: present Presence of Pain: no Comfort Measures Before/During Feeding: infant position adjusted;latch adjusted;maternal position adjusted Feeding Readiness Cues: eager;crying Satiety Cues: calm after feeding (pt offered bottle of EBM after ) Comfort Measures Following Feeding: expressed milk applied Suck/Swallow Coordination: present Breast Pump Type: double electric, personal Additional Equipment: nipple shield;cotton breast pads Breast Pumping: Bilateral Breasts;pumped until emptied Nipple Shield Size: 20 mm BABY ASSESSMENT:Janusz Serna Age:4 wk.o. :08/16/2021 Medical Condition: (pt reports infant fractured left arm during delivery; f/u with [facility] on Thursday) Mouth Size: average Palate Signs/Symptoms: intact;moist Tongue Symptoms: intact;moist;pink;frenulum marginal Frenulum: tongue elevates < 1/2 way to palate (tongue extends just to gum line; unable to get to suck on gloved finger) Gum Symptoms: intact;moist;pink Skin Color: (color per ethnicity) : , bilateral Latch: 1-->repeated attempts, holds nipple in mouth, stimulate to suck Audible Swallowin-->a few with stimulation Type Of Nipple: 2-->everted (after stimulation) Comfort (Breast/Nipple): 2-->soft/nontender Hold (Positioning): 1-->minimal assist, teach one side: mother does other, staff holds Score (less than 7 for 2/more consecutive times, consult Process Manufacturing Engineer): 7 SUPPLEMENTATION Infant Feeding Plan: Breast Milk Currently : yes Breast Pump Needed: yes documented in this encounter Plan of Treatment Not on filedocumented as of this encounter Visit Diagnoses Not on filedocumented in this encounter Care Teams Garbage Worker Relationship Specialty Start Date End Date Palmira Lim MD PCP - General 05/08/[address] [place] [place] [address] documented as of this encounter
--- OUTSIDE RECORDS SUMMARY | 2021-12-08 10:24 | XMS_ITS | Encounter Summary ---
:2000 Author Organization [employer] Address [address] [place] [address] Care Team Providers Name Role Phone Palmira Lim MD Primary Care Provider Reason for Visit Reason Comments NST,(NON STRESS TEST) Not needed Encounter Details Date Type Department Care Team Description 08/13/2020 Routine [facility] Shana Hernández MD NST,(NON STRESS Services-IT SALES CONSULTANT [address] TEST) (Not needed) [address], [address] [place] [id number] [phone] Social History Tobacco Use Types Packs/Day Years [...] documented as of this encounter Progress Notes Petey Jang LPN - 08/13/2020 1:00 PM CDT Patient's BPP 10/07. SATYA 26.9 cm. Next appt scheduled 08/16/2020. No NST needed today per Dr. Hernández. Patient informed and reminded of upcoming appts. Verbalized understanding and all questions answered. documented in this encounter Plan of Treatment Not on filedocumented as of this encounter Visit Diagnoses Diagnosis Pre-existing type 1 diabetes mellitus du ring in second trimester - Primary documented in this encounter Care Teams Specialist Managers Relationship Specialty Start Date End Date Palmira Lim MD PCP - General 05/08/[address] [place] [address] documented as of this encounter
--- OUTSIDE RECORDS SUMMARY | 2021-12-08 10:24 | XMS_ITS | Encounter Summary ---
:2000 Author Organization [employer] Address [address] [place] [address] Care Team Providers Name Role Phone Palmira Lim MD Primary Care Provider Reason for Visit Procedure/Equipment (Routine) - Canceled Specialty Diagnoses / Procedures Referred By Contact Refer red To Contact Diagnoses Pre-existing type 1 diabetes mellitus during in second trimester Denisha Serna, PAYROLL HUMAN RESOURCES ASSISTANT, THORACIC SURGEON Procedures US OB BPP / SATYA Single [address] [place] [address] Referral ID Status Reason Start Date Expiration Date Visits V isits Requested Authorized [id number] Canceled 06/11/2020 09/10/2021 18 18 Encounter Details Date Type Department Care Team Description 08/13/2020 [facility] Denisha Serna, Pre-e xisting type 1 Procedure Services-Ultrasound PAYROLL HUMAN RESOURCES ASSISTANT, THORACIC SURGEON diabetes mellitus [address] [address] [address], [address] [place], [place] second trimester [place] [id number] [phone] Social History Tobacco Use Types Packs/Day Years [...] documented as of this encounter Progress Notes Denisha Serna APRN, CNP - 08/13/2020 12:45 PM CDT BPP /, SATYA 26. Vertex [place]-THORACIC SURGEON documented in this encounter Plan of Treatment Not on filedocumented as of this encounter Procedures Procedure Name Priority Date/Time Associated Diagnosis Comme nts US OB BPP / SATYA Routine 08/13/2020 1:18 PM Pre-existing type 1 Results for this SINGLE CDT diabetes mellitus procedure are in during in the resu lts second trimester section. documented in this encounter Results US OB BPP / SATYA Single (08/13/2020 1:18 PM CDT) Anatomical Region Laterality Modality Pelvis Ultrasound Specimen (Source) Anatomical Collection Method Collection Time Re ceived Time Location / / Volume Laterality 08/13/2020 12:45 PM CDT Impressions 08/13/2020 2:09 PM CDT TECHNIQUE: Limited ultrasound examination was performed for evaluation of amniotic fIuid index (SATYA) and biophysical profile (BPP). ? FINDINGS: Type of Gestation: Colby Presentation: ??VERTEX Cardiac Rate: ??153 BPM Placental Position: ??POSTERIOR. 4-quadrant SATYA: ??26.9 cm. Polyhydramnio s. SATYA previously was upper normal with an index of 23.6 cm. Q1: ??7.4 cm. Q2: ??6.5 cm. Q3: ??7.3 cm. Q4: ??5.8 cm. Other Findings: None. BPP breathing: ??2 (One episode of fet al breathing for 30 seconds) Gross movements: ??2 (3 body, limb , discrete or separate movements) tone: ??2 (One episode of extensio n/flexion of limbs, head or trunk) Amniotic fluid single deepest pocket: ?? 2 (greater than or equal to 2 cm) TOTAL SCORE: 8 BPP results called: NA SATYA results called: NA Procedure Note Luis E Samuel MD - 08/13/2020Format ting of this note might be different from the original. IMPRESSION TECHNIQUE: Limited ultrasound examinatio n was performed for evaluation of amniotic fIuid index (SATYA) and biophysical profile (BPP). FINDINGS: Type of Gestation: Colby Presentation: VERTEX Cardiac Rate: 153 BPM Placental Position: POSTERIOR. 4-quadrant SATYA: 26.9 cm. Polyhydramnios. SATYA previously was upper normal with an index of 23.6 cm. Q1: 7.4 cm. Q2: 6.5 cm. Q3: 7.3 cm. Q4: 5.8 cm. Other Findings: None. BPP breathin (One episode of breathing for 30 seconds) Gross movements: 2 (3 body, limb, discrete or separate movements) tone: 2 (One episode of extension/ flexion of limbs, head or trunk) Amniotic fluid single deepest pocket: 2 (greater than or equal to 2 cm) TOTAL SCORE: 8 BPP results called: NA SATYA results called: NA Denisha Fenton Daphne NICK, THORACIC SURGEON [facility] documented in this encounter Visit Diagnoses Diagnosis Pre-existing type 1 diabetes mellitus du ring in second trimester documented in this encounter Care Teams Income Tax Preparer Relationship Specialty Start Date End Date Palmira Lim MD PCP - General 05/08/[address] [place] [address] documented as of this encounter
--- OUTSIDE RECORDS SUMMARY | 2021-12-08 10:24 | XMS_ITS | Encounter Summary ---
:2000 Author Organization [employer] Address [address] [place] [address] Care Team Providers Name Role Phone Palmira Lim MD Primary Care Provider Encounter Details Date Type Department Care Team Description 10/17/2020 Notes/Orders [place] [address] [facility] examination [address] for other mental [place], [place] health and [place] [id number] disorders (Primary Dx) [phone] Social History Tobacco Use Types Packs/Day Years [...] Primary documented in this encounter Care Teams Mortgage Servicing Specialist Relationship Specialty Start Date End Date Palmira Lim MD PCP - General 05/08/06 [address], [place] [address] documented as of this encounter
--- OUTSIDE RECORDS SUMMARY | 2021-12-08 10:24 | XMS_ITS | Encounter Summary ---
:1999 Author Organization [facility] Address [address] [place] [address] Care Team Providers Name Role Phone Palmira Lim MD Primary Care Provider Reason for Visit Reason Comments Diabetes Encounter Details Date Type Department Care Team Description 04/08/2021 Telemedicine [facility] [address] Lilian Maldonado Type 1 diabetes mellitus without complication (HRC) (Primary Dx); Endocrinology KAIN Fenton Subclinical hypothyroidism (HRC) [address] [facility] [address] [facility] [place] [address] [phone] Social History Tobacco Use Types Packs/Day Years [...] documented as of this encounter Progress Notes Katya Dietrich, RN - 04/08/2021 11:15 AM CST Images from the original note were not included. Pre-Visit Planning for Phone/Video Visit: Diabetes Pre-visit planning completed. Reviewed the following: - Medications-done - Pharmacy-done - Allergies-done - Last foot & eye exam-done - Tobacco/alcohol use-done Current Diabetes Medications Novolog 1unit per 8g Lantus 31 units daily Patient Concerns: Struggling with highs, forgetting to take insulin, issues with carpel tunnel SIZER Lilian Maldonado MBBS - 04/08/2021 11:15 AM CST [facility] Department of Endocrinology, Diabetes and Metabolism Clinic Note Name: Nabila Serna Cc: Follow up for T1DM. This was a phone visit, she was home and I was in my office. HPI: Nabila Serna is a 20 y.o. female #1 T1DM: Diagnosed in 2015, no known complications, she has history of non compliance, had a DKA in 03/2018. She is 6 months post . She is using lantus 31 units QHS and Novolog 1 per 8 gm with correction (SF 40, target 140). She have been forgetting to bolus before eating and her BG are running very high. She is using CGM with Dexcom, CGM data for 2 weeks were reviewed, average glucose was 333, SD 83. 81% >250, 14%181-250, 4% in range (70-180), 0%<70 and 4%<54. Glucose tracing indicates hyperglycemia all day long. She is taking levothyroxine 50 mcg daily. No history of hypoglycemia unawareness. No peripheral neuropathy symptoms, Creatinine from 07/2021 was normal and had normal urine microalbumin. Labs: Reviewed and summarized in the HPI. Assessment and Plan: Nabila Serna is a 20 y.o. female: #1 T1DM: uncontrolled, no triopathy. Counseled the patient about the importance of DM control and grave consequences of uncontrolled DM. Including having another DKA that can be fatal. Stop snacking and reduce carb intake 30-45 gm per meal. Use 1/2 correction at bed time. Increase lantus to 34 units, keep Novolog the same, bolus before eating. I will have her see the IDC to look into in-pen. Continue CGM use. RTC in 4 weeks. #2 Hypothyroidism: Continue levothyroxine 50 mcg daily. Repeat TSH, BMP, urine microalbumin and A1C before next visit. KAIN [place] Supervisor SIZER documented in this encounter Plan of Treatment Not on filedocumented as of this encounter Results Albumin/Creatinine Ratio,Random Urine (05/13/2021 3:33 PM CDT) athologist Signature Albumin/Creati 19 <30 mg/g 05/13/2021 [facility] nine Ratio, 5:08 PM CDT [address] [facility] Urine, Random Albumin, 23.5 mg/L 05/13/2021 [facility] Urine, Random 5:08 PM CDT [address] [facility] Y Creatinine, 123 >20 mg/dL 05/13/2021 [facility] Urine, Random mg/dL 5:08 PM CDT [address] [facility] Y Specimen Anatomical Collection Method Collection Time Receive d Time (Source) Location / / Volume Laterality Urine Non-blood 05/13/2021 3:33 PM 2 3:33 Collection / CDT PM CDT Unknown Lilian FINNEGAN LAB_1 Performing Organization Address City/State/ZIP Code Phon e Number [facility] [address] [place], [place] [address] [phone] (ABNORMAL) TSH (05/13/2021 3:26 PM CDT) [facility] Method Time Signature TSH, Sensitive 123.73 (H) 0.30 - 05/13/2021 [facility] 4.50 8:00 PM CDT LABORATORY uIU/mL Specimen Anatomical Collection Method / Collection Time Recei andrade Time (Source) Location / Volume Laterality Blood Venipuncture / 05/13/2021 3:26 05/13/2021 3:26 Unknown PM CDT PM CDT Lilian FINNEGAN LAB_1 Performing Organization Address City/State/ZIP Code Phon e Number [facility] [address] [place] [address] documented in this encounter Visit Diagnoses Diagnosis Type 1 diabetes mellitus without complic ation (HRC) - Primary Type I (juvenile type) diabetes mellitus without mention of complication, not stated as uncontrolled Subclinical hypothyroidism Other specified acquired hypothyroidism documented in this encounter Care Teams Route Driver Relationship Specialty Start Date End Date Palmira Lim MD PCP - General 05/08/[address] [place] [id number] documented as of this encounter
--- OUTSIDE RECORDS SUMMARY | 2021-12-08 10:24 | XMS_ITS | Encounter Summary ---
:1999 Author Organization [facility] Address [address] [place] [address] Care Team Providers Name Role Phone Palmira Lim MD Primary Care Provider Reason for Visit Reason Comments Routine Visit 35w6d Encounter Details Date Type Department Care Team Description 08/09/2020 Routine [facility] Shana Hernández MD Routine Services-DEPUT[employer]ERIFF GENERALIST [address] Ginger Gilbert Visit (35w6d) [address], [address] [place] [phone] Social History Tobacco Use Types Packs/Day Years [...] Reading Time Taken Comments Blood Pressure 139/89 08/09/2020 1:21 PM CDT Pulse 88 08/09/2020 1:21 PM CDT Temperature - - Respiratory Rate - - Oxygen Saturation - - Inhaled Oxygen Concentration - - Weight 103 kg (227 lb) 08/09/2020 1:21 PM CDT Height - - Body Mass Index 40.21 07/18/2020 2:05 PM CDT documented in this encounter Progress Notes Shana Hernández MD - 08/09/2020 1:30 PM CDT [facility] CC: Follow-up care S: Nabila Serna is feeling well today. BG in target range per patient BP 130s-140s/80s-90s, none >160/100 She denies loss of fluid, changes in vaginal discharge or vaginal bleeding. Reports good movement. Some cramping a couple days, nothing regular. Denies headaches, vision changes, chest pain, shortness of breath. complications: - Type 1 diabetes - Hypothyroidism - preE w/o SF - Excessive weight gain in - Hx of HSV - Hx THC use, stopped when found out she was - Polyhydramnios O: Filed Vitals: 08/09/20 1321 BP: 139/89 Pulse: 88 Weight: 227 lb (103 kg) Gen: alert, oriented, NAD : Genital warts noted See OB flowsheet. Cvx: closed/10%/-3, mid, medium A/P: 19 y.o. at 35w6d by 7w3d US presenting for follow-up care. Care: - OB labs reviewed: A, Rubella immune, HIV neg, Heb B nonreactive, RPR negative - Genetics: NT normal, 1st tri screen normal - Ultrasound: L2 US normal - Rh positive, Rhogam not indicated - Hgb 10.4, RPR neg - S/p flu 03/08/20, Tdap 06/22/20 - Recommended covid vaccine, may be interested - GBS neg - Feed: breast, pump rx given - Contraception: IUD Type 1 DM ?- Follows in endocrinology; [facility] Roster Clerk, Dr. Maldonado.??Last appointment 07/18, next 08/15. Using Lantus 60U qHS and insulin Novolog 1 unit per 2 gm CHO plus correction 1 per 30 above 120. ?- Baseline HELLP labs??normal ? - Opthalmology appointment; last on 06/07/2020; recommended repeat in 1 year ? - PPx baby Asa through??delivery ?-??07/18 hemoglobin A1c 6.4%. ??Continue current insulin regimen as advised by endocrine.?- Last growth US 08/06: EFW 3783g >99%, AC >99%, BPP 10/07, SATYA 25.3 ?- testing: BPP??twice weekly.?BPP today??10/07, SATYA 23.6 - Discussed suspected LGA and greater risk of CS and shoulder dystocia. Given IOL at 37 weeks, infant will not be over 4500g threshold for recommendation of scheduled CS but discussed increasedrisk of arrest of descent or dilation and shoulder dystocia risks. Hypothyroid. ??- on Synthroid per Endo, levothyroxine 50 mcg daily Thu-Thu, and 100 mcg on Thu and Sundays TSH 3.11 ?? General herpes. ?? - Taking valtrex daily Genital warts - discussed removal if desired ?? Polyhydramnios, mild - Last SATYA 23.6 today ?? Pre-eclampsia w/o SF - Baseline HELLP labs and UPC and repeat 08/02 normal w/ exception of elevated UPC, repeat ordered today (repeat weekly) - testing twice weekly for DM1 - cervical ripening scheduled for 08/17 with IOL on 08/18. Discussed that if she develops severe features she would be induced earlier. - call if BP >150/100 or signs/sx of severe features, take BP at home BID Follow-up in clinic in 1 week. Shana Hernández MD documented in this encounter Plan of Treatment Not on filedocumented as of this encounter Results Alanine Aminotransferase [ALT] (08/09/2020 2:11 PM CDT) P athologist Signature ALT (SGPT) <10 0 - 55 U/L 08/09/2020 [facility] 5:09 PM CDT LABORATORY Specimen Anatomical Collection Method / Collection Time Recei andrade Time (Source) Location / Volume Laterality Blood Venipuncture / 08/09/2020 2:11 08/09/2020 2:11 Unknown PM CDT PM CDT Shana Hernández MD LAB_1 Performing Organization Address [facility] Phon e Number [facility] [address] [place] [phone] AST (SGOT) [AST] (08/09/2020 2:11 PM CDT) athologist Signature AST (SGOT) 17 10 - 40 U/L 08/09/2020 [facility] 5:09 PM CDT LABORATORY Specimen Anatomical Collection Method / Collection Time Recei andrade Time (Source) Location / Volume Laterality Blood Venipuncture / 08/09/2020 2:11 08/09/2020 2:11 Unknown PM CDT PM CDT Shana Hernández MD LAB_1 Performing Organization Address [facility] Phon e Number [facility] [address] [place] [address] [phone] Platelet Count [PLT] (08/09/2020 2:11 PM CDT) athologist Signature Platelets 228 150 - 450 08/09/2020 [facility] x10(9)/L 4:45 PM CDT LABORATORY Specimen Anatomical Collection Method / Collection Time Recei andrade Time (Source) Location / Volume Laterality Blood Venipuncture / 08/09/2020 2:11 08/09/2020 2:11 Unknown PM CDT PM CDT Shana Hernández MD LAB_1 Performing Organization Address [facility] Phon e Number [facility] [address] [place] [phone] Creatinine [CREAT] (08/09/2020 2:11 PM CDT) athologist Signature Creatinine 0.60 0.55 - 08/09/2020 [facility] 1.02 mg/dL 5:09 PM CDT LABORATORY GFR, Estimated >60 >60 08/09/2020 [facility] mL/min/1.7 5:09 PM CDT LABORATORY 3m2 Specimen Anatomical Collection Method / Collection Time Recei andrade Time (Source) Location / Volume Laterality Blood Venipuncture / 08/09/2020 2:11 08/09/2020 2:11 Unknown PM CDT PM CDT Shana Hernández MD LAB_1 Performing Organization Address City/State/[facility] Code Phon e Number [facility] [address] [place] [phone] documented in this encounter Visit Diagnoses Diagnosis Pre-eclampsia in third trimester - Prima ry Mild or unspecified pre-eclampsia, antep artum Constipation, unspecified constipation t ype Pre-existing type 1 diabetes mellitus du ring in second trimester Maternal thyroid dysfunction, antepartum (HRC) Thyroid dysfunction, antepartum Supervision of other high risk , antepartum Hypothyroidism, unspecified type (HRC) Herpes simplex vulvovaginitis (HRC) documented in this encounter Care Teams Wrapper Hand Relationship Specialty Start Date End Date Palmira Lim MD PCP - General 05/08/06 [address] [facility] [facility] [address] [place], [place] [address] documented as of this encounter
--- OUTSIDE RECORDS SUMMARY | 2021-12-08 10:24 | XMS_ITS | Encounter Summary ---
:1999 Author Organization [employer] Address [address] [place] [address] Care Team Providers Name Role Phone Palmira Lim MD Primary Care Provider Encounter Details Date Type Department Care Team Description 09/19/2020 Telephone [facility] O'Nabila Jordan MD Services-MANAGER [employer]OV[employer] [address] [place] [address] [facility], [place] [address] [address] [place] [address] [phone] Social History Tobacco Use Types Packs/Day Years [...] documented as of this encounter Nursing Notes Sujatha Cuevas LPN - 09/19/2020 11:49 AM CDT LM requesting pt to call back. Pt was suppose to f/u 1 week for BP and mood check. Also no PP scheduled. Call back number left. documented in this encounter Plan of Treatment Not on filedocumented as of this encounter Visit Diagnoses Not on filedocumented in this encounter Care Teams Dress Cutter Relationship Specialty Start Date End Date Palmira Lim MD PCP - General 05/08/06 [address], [place] [address] documented as of this encounter
--- OUTSIDE RECORDS SUMMARY | 2021-12-08 10:24 | XMS_ITS | Encounter Summary ---
:2000 Author Organization [employer] Address [address] [address] Phone Care Team Providers Name Role Phone Elsewhere, Pcp Primary Care Provider Unavailable Reason for Visit Reason Comments Other port pt Encounter Details Date Type Department Care Team Description 02/06/[address] [facility]Isamar Maddox, En counter for routine PEDIATRICS child health [address] examination with KAYLYN LACY [address] KAYLYN LACY abnormal findings [phone] (Primary Dx) Social History Tobacco Use Types Packs/Day Years [...] Comments Blood Pressure 112/76 02/06/2017 10:04 AM BUSINESS MANAGEMENT CONSULTANT Pulse 101 02/06/2017 10:04 AM BUSINESS MANAGEMENT CONSULTANT Temperature 36.9 ??C (98.5 ??F) 02/06/2017 10:04 AM BUSINESS MANAGEMENT CONSULTANT Respiratory Rate 20 02/06/2017 10:04 AM BUSINESS MANAGEMENT CONSULTANT Oxygen Saturation 92% 02/06/2017 10:04 AM BUSINESS MANAGEMENT CONSULTANT Inhaled Oxygen Concentration - - Weight 63.9 kg (140 lb 12.8 oz) 02/06/2017 10:04 AM BUSINESS MANAGEMENT CONSULTANT Height 165.1 cm (5' 5) 02/06/2017 10:04 AM BUSINESS MANAGEMENT CONSULTANT Body Mass Index 23.43 02/06/2017 10:04 AM BUSINESS MANAGEMENT CONSULTANT Body Mass Index Percentile 73.99 % 02/06/2017 10:04 AM BUSINESS MANAGEMENT CONSULTANT Growth Chart: [facility] (Girls, 2-20 Years) documented in this encounter Functional Status Functional Status Response Date of Assessment Patient's Vision Adequate to Safely Complete Daily Yes 12/17/2016 Activities Patient's Memory Adequate to Safely Complete Daily Yes 12/17/2016 Activities Cognitive Status Response Date of Assessment Patient's Judgment Adequate to Safely Complete Daily Yes 12/17/2016 Activities documented as of this encounter Patient Instructions Patient InstructionsIsamar Friend MD - 02/06/2017 10:17 AM CST Adolescent Female Instructions Physical Health: >Floss, brush, regular dental visits, and use mouth guards when appropriate. >Hearing protection at concerts, work. >Near daily exercise, a hour/day or 150 minutes a week minimum. >Keep hydrated with water during physical activity. >5 servings or more per day of fruits and vegetables. >3 servings a day of dairy (low fat milk, yogurt, cheese). >Drink water, learn to cook. >Limit foods high in fat, sugar and soft drinks. >Limit media exposure to hours a day, no TV in bedroom. Social: >Discover your interests (sports, art, music, volunteering, mentoring). >Consider community involvement with issues that interest you. >Anticipate adolescent behavior changes, importance of peers. >Discuss family rules for driving, curfew. >Stay connected with your family. >Remember phone etiquette: put away for meals, family time, etc. Consider turning off at night. Academics: >Take responsibility for getting homework done and getting to school on time. >If concerns, ask for special help, tutoring. >Discuss college plans or goals for after high school. >Youth with special health care needs: research college tour events and meet with college disability counselors in 11th grade. Mental Health: >Find healthy ways to deal with stress. >Encourage talking to parents, other adults or medical providers about mood concerns. Substance Abuse: >Avoid smoking, drinking alcohol, steroids and diet pills. >If you are worried about a family member's substance abuse problem, talk to me. >If you smoke or use drugs or alcohol, lets talk about it. Ask for help. Sexual Health/STI Prevention: >Ask if you have questions about your sexuality, development or sexual feelings. >Encourage abstinence from sexual activity or a return to it. >Support safe activities at school, in community or kayden organizations to encourage personal andsocial growth. >Talk about relationships and sex when they arise at school and with friends. Be open and non-judgemental and honest about your personal views. >Abstaining from sexual intercourse, including oral sex, is the safest way to prevent and STI. >Use condoms and contraception if you are sexually active. >Have regular checkups if you are sexually active. Violence and Injury Prevention: >Use safety belts and don't text and drive. Helmet use, life jackets. >Do not ride in vehicle with someone who has been using. >Remove guns from home or keep unloaded/locked and store ammunition separately. >Leave situations or relationships if you see signs of violence. >In dating situations, remember No means No. Transition: >Older teens should have examination and time with provider apart from parent. >Know your medical diagnoses, medications, and allergies. >Females know your menstrual cycle. >Prepare for visits: list of questions, bring forms in with your section completed. >Start filling your own prescriptions, making your appointments, contacting your provider when needed by phone call/e-mail. >Transition Readiness Checklist of Skills given. >Learn to use My Health and/or sign up for your own My Health account. >Discuss transfer to adult provider: how to choose a new provider (male or female, location of clinic, provider videos online). >Inquire about an interview with adult provider if thought necessary. Process of Transition from Pediatric to Adult Care: >Our Pediatrics department is committed to the smooth transfer of care from pediatric care to adult care. >We partner with youth and their families to plan and prepare for transition starting around the 14th. birthday. >At age 18, our patients will transfer to an adult model of health care that includes: responsibility for their medical decision making, scheduling their own appointments, providing consent related to their medical care and sharing personal health information. >We follow State and Federal Privacy Laws. Older youth will need to sign a consent form that would allow parents access to their medical information. >We honor the preference of the youth and family in regard to the actual timing of the transition. In general, the transition happens by age 18-22, with modification as needed for youth with developmental disabilities. Resources: >www.healthychildren.org >Poison Control Center number (place at each telephone or on contacts list): . Next Visit: The [employer] recommends a routine checkup every year. NESS MANAGEMENT CONSULTANT documented in this encounter Progress Notes Isamar Friend MD - 02/06/2017 9:45 AM CST ADOLESCENT FEMALE PREVENTIVE VISIT Nabila Serna is a 16 year old female who comes in accompanied by [facility] staff for routine checkup. Concerns and questions: jaw pain; left jaw hurts and locks sometimes for the past 2 years Psycho/Social Screening: Adolescent Health Review completed: No PSC-17 Screening (electronic): No flowsheet data found. Need a sports physical today? no Patient Active Problem List: Diabetes mellitus, insulin dependent (IDDM), uncontrolled (HCC)[931597] Comment: Diagnosed August 2015. No FH of diabetes. Insulin overdose, intentional self-harm, subsequent encounter[7691580] Suicidal behavior[370448] Adjustment disorder with depressed mood[309.0.ICD-9-CM] Parent-child relational problem[812269] ADHD (attention deficit hyperactivity disorder), combined type[872104] Problem list was reviewed and updated as necessary HISTORY: Nutrition concerns: none, 2-3 servings dairy, full variety of foods Growth chart reviewed and discussed. Does your child participate in regular physical activity on most , if not all, days of the week?: no Sleep concerns: none, sleeps 8 hours a night Dental concerns: no recent visit, does not have dentist Vision concerns?no Hearing concerns? no Safety concerns: none DEVELOPMENT: School performance: 12th grade, doing well, no concerns Family concerns: no concerns Social Concerns: none, has close friends Activities/interests: [employer] PAST HISTORY: Past Medical History: Diagnosis Date ??? ADHD (attention deficit hyperactivity disorder), combined type 12/18/2016 ??? Diabetes mellitus, insulin dependent (IDDM), uncontrolled (HCC) 12/18/2016 Diagnosed August 2015. No FH of diabetes. ??? Insulin overdose, intentional self-harm, subsequent encounter 12/18/2016 ??? Parent-child relational problem 12/18/2016 Current Outpatient Prescriptions Medication Sig ??? citalopram (CELEXA) 20 MG tablet Take 1 Tab by mouth every morning. ??? amphetamine-dextroamphetamine (ADDERALL) 5 MG tablet Take 1 Tab by mouth two times a day (breakfast and lunch). To avoid insomnia, last daily dose should be taken no less than 6 hours before bed. ??? isulin degludec (TRESIBA FLEXTOUCH) 100 UNIT/ML Solution Pen-injector pen injection Inject 24 Units under the skin every 24 hours. ??? insulin lispro (HUMALOG) 100 UNIT/ML pen injection Inject 1 Units under the skin with meals and snacks. ??? insulin lispro (HUMALOG) 100 UNIT/ML pen injection Inject under the skin every three hours as needed. No current facility-administered medications for this visit. No Known Allergies There is no immunization history on file for this patient. Immunization status reviewed: yes SOCIAL HISTORY: Social History Narrative None on file FAMILY HISTORY: No family history on file. REVIEW OF SYSTEMS: Constitutional: negative and feels well Skin: negative HEENT: Head: denies headaches, hair loss, or scalp lesions Ears, Nose, Throat: no tinnitus, dizziness or hearing loss. No nosebleed, discharge or sinus problems. No hoarseness or throat pain. Eyes: negative Respiratory: negative Cardiac: negative Gastrointestinal: negative Genitourinary: negative Menses: yes; Sexually active: no Musculoskeletal: negative Neurologic: negative Psychiatric: negative Hematologic negative PHYSICAL EXAM: Vitals: 02/06/17 1004 BP: 112/76 Pulse: 101 Temp: 36.9 ??C (98.5 ??F) TempSrc: Tympanic Resp: 20 Height: 5' 5 (1.651 m) Weight: 140 lb 12.8 oz (63.9 kg) SpO2: 92% BMI (Calculated): 23.43 Blood pressure percentiles are 48 % systolic and 80 % diastolic based on NHBPEP's 4th Report. Blood pressure percentile targets: 90: 126/81, 95: 130/85, 99 + 5 mmH/97. Weight for age: 78 %ile (Z= 0.76) based on CDC 2-20 Years [id number]-[id number] data using vitals from 02/06/2017. Height for age: 63 %ile (Z= 0.32) based on CDC 2-20 Years ovkfuky-lfp-kko data using vitals from 02/06/2017. 74 %ile (Z= 0.64) based on CDC 2-20 Years BMI-for-age data using vitals from 02/06/2017. General Appearance: normal Skin: normal, no rashes or lesions HEENT: negative and pupils equal, round and react to light, conjunctiva clear; tympanic membranes clear; nose clear; and oropharynx unremarkable Neck: normal, supple, no adenopathy, no thyromegaly Heart: regular rhythm, normal S1 and S2, no murmur Chest/Respiratory: clear to auscultation, no wheezes, rales, or rhonchi Breasts: not examined Abdomen: normal bowel sounds, soft, nontender, no hepatosplenomegaly Genitalia: not examined Musculoskeletal: normal muscle mass, tone and strength, normal joint findings. Back: normal, symmetric, no abnormalities Neurological: normal, no focal findings Mental Status: normal Vision/hearing exam: No exam data present ASSESSMENT: Adolescent Female Exam jaw pain; recommended dentist PLAN: Patient is up to date with immunizations and doesn't require any today. ANTICIPATORY GUIDANCE: Verbal referral for regular preventive dental checkup was given to patient. During visit today Body Mass Index for Age was calculated: >Normal (<85%). Discussed and/or handout given: >Physical Health: floss, brush, regular dental visits, and use mouth guards when appropriate, hearing protection at concerts, work, near daily exercise, a hour/day or 150 minutes a week minimum and 5 servings or more per day of fruits and vegetables >Social: discover your interests (sports, art, music, volunteering, mentoring), consider community involvement with issues that interest you, anticipate adolescent behavior changes, importance of peers and discuss family rules for driving, curfew >Academics: take responsibility for getting homework done and getting to school on time and if concerns, ask for special help, tutoring >Mental Health: find healthy ways to deal with stress >Substance Abuse: avoid smoking, drinking alcohol, steroids and diet pills Recommend adolescent visit every year. NESS MANAGEMENT CONSULTANT documented in this encounter Plan of Treatment Not on filedocumented as of this encounter Visit Diagnoses Diagnosis Encounter for routine child health exami nation with abnormal findings - Primary Routine or child health check documented in this encounter Care Teams Coding Technician Relationship Specialty Start Date End Date Elsewhere, Pcp PCP - General 02/06/17 documented as of this encounter
--- OUTSIDE RECORDS SUMMARY | 2021-12-08 10:24 | XMS_ITS | Encounter Summary ---
:1999 Author Organization [employer] Address [address] [place] [address] Care Team Providers Name Role Phone Palmira Lim MD Primary Care Provider Reason for Visit Reason Comments Refill ULTICARE MINI PEN NEEDLES [P harmacy Med Name: UltiCare Mini Pen Chambers Miscellaneous 31G X 6 MM] Encounter Details Date Type Department Care Team Description 01/20/2021 Refill [place] [address] A[address] Beltran, Refill (ULTICARE MINI PEN Endocrinology PIPING MANAGER, MANGANESE HEATER NEEDLES [Pharmacy Med [address] Nam e: UltiCare Mini Pen [address] Chambers Miscellaneous 31G [place], [place] X 6 MM]) [phone] (Wo rk) Social History Tobacco Use Types [...] documented as of this encounter Nursing Notes Aleida Melendez RN - 01/21/2021 9:21 AM CST Requested Prescriptions Signed Prescriptions Disp Refills ??? ULTICARE MINI PEN NEEDLES 500 Each 2 Sig: USE TO INJECT INSULING 5 TIMES DAILY Authorizing Provider: AIDEN BELTRAN Ordering User: ALEIDA MELENDEZ Filled per RN protocol. TRONIC ASSEMBLY Interface, Out Surescripts Prov Query - 01/20/2021 1:42 PM CST ULTICARE MINI PEN NEEDLES [Pharmacy Med Name: UltiCare Mini Pen Chambers Miscellaneous 31G X 6 MM] Endocrinology: Diabetes Non-DME Supplies -> The requested medication was previously set to Historical. -> Refill x 12 months (maximum allowed) Last qualifying visit: 09/19/2020 (in [facility]) Next scheduled visit: None Last ordered by UNKNOWN, PHYSICIAN: 08/06/2020 (167 days ago as Historical on 08/09/2020 by MOHIT PHAN), Sig: use to inject insuling 5 times daily (unchanged) Powered by LAVEGO by NodePing, Reference: [id number], 01/20/2021 1:42:38 PM ELECTRONIC ASSEMBLY, Pool: ENDO PN REFILL ([id number]) TRONIC ASSEMBLY documented in this encounter Plan of Treatment Not on filedocumented as of this encounter Visit Diagnoses Not on filedocumented in this encounter Care Teams Apprentice Embalmer Relationship Specialty Start Date End Date Palmira Lim MD PCP - General 05/08/[address] [place] [id number] documented as of this encounter
--- OUTSIDE RECORDS SUMMARY | 2021-12-08 10:24 | XMS_ITS | Encounter Summary ---
:1999 Author Organization [employer] Address [address] [place] [address] Care Team Providers Name Role Phone Palmira Lim MD Primary Care Provider Encounter Details Date Type Department Care Team Description 09/12/2020 Notes/Orders [place] [address] [address] [facility] examination [address] for other mental [place], [place] [phone] disorders (Primary Dx) [phone] Social History Tobacco Use Types Packs/Day Years [...] Primary documented in this encounter Care Teams Procedure Tech Relationship Specialty Start Date End Date Palmira Lim MD PCP - General 05/08/06 [address] [place] [address] documented as of this encounter
--- OUTSIDE RECORDS SUMMARY | 2021-12-08 10:24 | XMS_ITS | Encounter Summary ---
:1999 Author Organization [employer] Address [address] [place] [address] Care Team Providers Name Role Phone Palmira Lim MD Primary Care Provider Reason for Visit Reason Comments Follow-up Encounter Details Date Type Department Care Team Description 05/13/2021 Office Visit [facility] [address] Lilian Maldonado Type 1 diabetes mellitus without complication (HRC) (Primary Dx); Endocrinology M, KAIN Subclinical hypothyroidism 38[address] [facility] [address] [facility] [place] [address] [phone] Social History Tobacco Use Types Packs/Day Years [...] Sign Reading Time Taken Comments Blood Pressure 123/67 05/13/2021 2:55 PM CDT Pulse 83 05/13/2021 2:55 PM CDT Temperature - - Respiratory Rate - - Oxygen Saturation - - Inhaled Oxygen Concentration - - Weight 66.8 kg (147 lb 3.2 oz) 05/13/2021 2:55 PM CDT Height 160 cm (5' 3) 05/13/2021 2:55 PM CDT Body Mass Index 26.08 05/13/2021 2:55 PM CDT documented in this encounter Progress Notes Lilian Maldonado MBBS - 05/13/2021 2:45 PM CDT [facility] Department of Endocrinology, Diabetes and Metabolism Clinic Note Name: Nabila Serna Cc: Follow up for T1DM. HPI: Nabila Serna is a 20 y.o. female #1 T1DM: Diagnosed in 2015, no known complications, she has history of non compliance, had a DKA in 03/2018. She is 7 months post . She is using lantus 34 units QHS and Novolog 1 per 8 gm with correction (SF 40, target 140). She have been forgetting to bolus before eating and her BG are running very high. She is using CGM with Dexcom, CGM data for 2 weeks were reviewed, average glucose was 342, SD 101. 82% >250, 4%181-250, 10% in range (70-180), 2 %<70 and 0%<54. Glucose tracing indicates a trend of hyperglycemia all the time. She is also not taking her thyroid hormone. A1C today was 13. No history of hypoglycemia unawareness. No peripheral neuropathy symptoms, Creatinine from 07/2021 was normal and had normal urine microalbumin. Labs: Reviewed and summarized in the HPI. Assessment and Plan: Nabila Serna is a 20 y.o. female: #1 T1DM: uncontrolled, no triopathy. A1C 13. Counseled the patient about the importance of DM control and grave consequences of uncontrolled DM. Including having another DKA that can be fatal. Stop snacking and reduce carb intake 30-45 gm per meal. Use 1/2 correction at bed time. Increase lantus to 15 units QAM and 34 units. Use Novolog 6 units TID AC with correction 2 units for every 50 above 150. Continue CGM use. RTC in 6 weeks. #2 Hypothyroidism: Check TSH today, restart levothyroxine if needed. KAIN Bruce Life Tester [employer] documented in this encounter Plan of Treatment Not on filedocumented as of this encounter Procedures Procedure Name Priority Date/Time Associated Diagnosis Comme nts POCT GLYCOSYLATED Routine 05/13/2021 2:07 Type 1 diabetes Resu lts for this HEMOGLOBIN (HGB A1C) PM CDT mellitus without pro cedure are in complication (HR C) the results Subclinical section. hypothyroidism documented in this encounter Results Creatinine / GFR (05/13/2021 3:26 PM CDT) P athologist Signature Creatinine 0.73 0.55 - 05/13/2021 [facility] 1.02 mg/dL 5:24 PM CDT [address] [facility] GFR, Estimated >60 >60 05/13/2021 [facility] mL/min/1.7 5:24 PM CDT [address] [facility] 3m2 Specimen Anatomical Collection Method / Collection Time Recei andrade Time (Source) Location / Volume Laterality Blood Venipuncture / 05/13/2021 3:26 05/13/2021 3:26 Unknown PM CDT PM CDT Lilian FINNEGAN LAB_1 Performing Organization Address City/State/ZIP Code Phon e Number [facility] [address] [place], [place] [phone] [address] (ABNORMAL) POCT glycosylated hemoglobin (Hb A1C) (05/13/2021 2:07 PM CDT) Analysis Performed At Patho logist Time Signature Hemoglobin A1C 13.1 (A) 5.6 % POCT (Rapid) Cartridge Lot# [id number] POCT Specimen (Source) Anatomical Collection Method Collection Time Re ceived Time Location / / Volume Laterality Blood 05/13/2021 2:07 PM CDT Lilian FINNEGAN ET POINT OF [...] hypothyroidism documented in this encounter Care Teams Manager Universal Relationship Specialty Start Date End Date Palmira Lim MD PCP - General 05/08/06 [address], [place] [address] documented as of this encounter
--- OUTSIDE RECORDS SUMMARY | 2021-12-08 10:24 | XMS_ITS | Encounter Summary ---
:1999 Author Organization [employer] Address [address] [place] [address] Care Team Providers Name Role Phone Palmira Lim MD Primary Care Provider Encounter Details Date Type Department Care Team Description 08/20/2020 [facility] Initial Department Provider, [facility] [address] K[address] Burgos MD 08/20/[address] Interface [place], [place] provider [address] interface [phone] [place] [address] Social History Tobacco Use Types Packs/Day Years [...] on filedocumented in this encounter Care Teams Tilting Head Band Sawyer Relationship Specialty Start Date End Date Palmira Lim MD PCP - General 05/08/[address] [place] [address] documented as of this encounter
--- OUTSIDE RECORDS SUMMARY | 2021-12-08 10:24 | XMS_ITS | Encounter Summary ---
:1999 Author Organization [employer] Address [address] [place] [address] Care Team Providers Name Role Phone Palmira Lim MD Primary Care Provider Reason for Visit Reason Comments Refill Continuous Blood Gluc Sensor (DEXCOM G6 SENSOR) MISC [Pharmacy Med Name: Dexcom G6 Sensor Miscellaneo us] Encounter Details Date Type Department Care Team Description 01/20/2021 Refill [facility] [address] Aiden Beltran APRN, Refill (Continuous Endocrinology GREENHOUSE WORKER Blood Gluc Sensor [address] (DE XCOM G6 SENSOR) [address] [Pharmacy Med Name: [place], [place] De xcom G6 Sensor [id number] Miscellaneous]) [phone] (Wo rk) Social History Tobacco Use Types [...] as of this encounter Nursing Notes Aleida Melendez, RN - 01/21/2021 8:34 AM CST Requested Prescriptions Signed Prescriptions Disp Refills ??? Continuous Blood Gluc Sensor (DEXCOM G6 SENSOR) MISC 9 Each 2 Sig: PLACE 1 SENSOR ON DRY, CLEAN, HAIRLESS SKIN EVERY 10 DAYS. Authorizing Provider: AIDEN BELTRAN Ordering User: ALEIDA MELENDEZ Filled per RN protocol. R SANDER Interface, Out Surescripts Prov Query - 01/20/2021 1:51 PM CST Continuous Blood Gluc Sensor (DEXCOM G6 SENSOR) MISC [Pharmacy Med Name: Dexcom G6 Sensor Miscellaneous] None Exists -> Unable to determine if patient is due for a renewal, please review. -> Unable to determine if sig has changed, review required. -> Medication cannot be delegated. Last qualifying visit: 09/19/2020 (in [facility]) Next scheduled visit: None Last ordered by AIDEN BELTRAN: 10/23/2020 (89 days ago) QTY: 9, Refills: 3, Sig: take 1 each as instructed every 10 days. (changed) Powered by Synetiq by Vidmind, Reference: [id number], 01/20/2021 1:51:14 PM FLOOR SANDER, Pool:KEVIN PN REFILL ([id number]) R SANDER documented in this encounter Plan of Treatment Not on filedocumented as of this encounter Visit Diagnoses Diagnosis Type 1 diabetes mellitus without complic ation (HRC) Type I (juvenile type) diabetes mellitus without mention of complication, not stated as uncontrolled documented in this encounter Care Teams Eyeglass Cutter Relationship Specialty Start Date End Date Palmira Lim MD PCP - General 05/08/[address] [place] [address] documented as of this encounter
--- OUTSIDE RECORDS SUMMARY | 2021-12-08 10:24 | XMS_ITS | Encounter Summary ---
:1999 Author Organization [employer] Address [address] [place] [address] Care Team Providers Name Role Phone Palmira Lim MD Primary Care Provider Reason for Visit Reason Comments Medication Questions Encounter Details Date Type Department Care Team Description 08/28/2020 Telephone [facility] O'Nabila Jordan on Questions Services-FISH AND WILDLIFE BIOLOGIST MD [facility] [id number] [place] [address], [address] [place] [address] 5 [phone] Social History Tobacco Use Types Packs/Day Years [...] documented as of this encounter Nursing Notes April Clarke RN - 08/28/2020 4:56 PM CDT Called patient with message from provider, see note. Patient verbalizes understanding and has no further questions or concerns. Future Appointments Provider Department Center 08/29/2020 2:00 PM Nabila Stokes MD [facility]-FISH AND WILDLIFE BIOLOGIST PN [facility] April Clarke RN - 08/28/2020 4:54 PM CDT Images from the original note were not included. Nabila Stokes MD [facility] Triage 6 minutes ago (4:45 PM) EO I am human resource consultant tomorrow, but can have a flexible schedule as long as the patient can have a flexible schedule tomorrow between 2 and 4:00 p.m. ??if it is scheduled for 2:00 p.m., and let her know that itmight be give her take given my duties on Labor and delivery. ??Alternatively, the patient could come in tomorrow to see another provider if there is an opening in person if she would prefer. Please and thank you! Message text Caitlin Feldman RN - 08/28/2020 4:16 PM CDT Reviewed provider message with patient. Verbalizes understanding and agrees with POC. Patient verifies she is currently taking nifedipine 90 mg daily and labetalol 400 mg BID. Verbalizesunderstanding to d/c the labetalol and check BP BID. Please advise on more specific time to scheduleVV as provider is not in clinic tomorrow for scheduling this. Patient would like call back with thisupdated appt information. April Clarke RN - 08/28/2020 4:11 PM CDT Attempted to contact patient. Generic voicemail at number, message left to call back. April Clarke RN - 08/28/2020 4:09 PM CDT Images from the original note were not included. Nabila Stokes MD [facility] Triage; Petey Jang LPN 10 minutes ago (3:58 PM) EO On the patient's discharge paperwork, it appears as though she was discharged home with nifedipine, 90 mg daily as well as 400 mg of labetalol BID. ??Can we confirmed this is what she was discharged with, and currently taking? ??If this is the case, with her blood pressures being low, I would recommend that she discontinue the labetalol and continue with the same dose of nifedipine. ??Encouraged her to take her blood pressures twice per day. ??I would also like to do a video visit with her tomorrow afternoon between 2 and 4:00 p.m. to review what her blood pressures are, and medications. ?? Petey - could you send her an EPDS through [employer] before this? ?? Thanks! Message text Veronica Paz RN - 08/28/2020 3:44 PM CDT Clinician Action: Input needed regarding Medication: pre-eclampsia meds. Clinician Next Step: Patient IS expecting a call back from care team Specific Request(s): 1. Nabila was discharged, post- on 08/20/20, taking PO Labetalol and Nifedipine. 2. Today feeling dizzy, light headed. 3. She states pedal edema has resolved, denies any headaches, and BP today was 99/74. 4. She is asking if she may cut out or decrease the medications. Please advise, Thank you. documented in this encounter Plan of Treatment Not on filedocumented as of this encounter Visit Diagnoses Not on filedocumented in this encounter Care Teams Contract Programmer Relationship Specialty Start Date End Date Palmira Lim MD PCP - General 05/08/[address] [place] [address] documented as of this encounter
--- OUTSIDE RECORDS SUMMARY | 2021-12-08 10:24 | XMS_ITS | Encounter Summary ---
:1999 Author Organization [employer] Address [address] [place] [address] Care Team Providers Name Role Phone Palmira Lim MD Primary Care Provider Reason for Visit Reason Comments Forms Encounter Details Date Type Department Care Team Description 08/08/2021 Telephone [facility] [address] MBBS Forms Endocrinology [address] [place] [address] [place], [place] [address] [phone] Social History Tobacco Use Types Packs/Day Years [...] documented as of this encounter Nursing Notes Jin Brown - 08/12/2021 3:52 PM CDT Form completed and faxed to [phone] Jin Brown - 08/08/2021 11:00 AM CDT [facility] Order form placed in Dr. Maldonado's mailbox. documented in this encounter Plan of Treatment Not on filedocumented as of this encounter Visit Diagnoses Not on filedocumented in this encounter Care Teams Key Account Representative Relationship Specialty Start Date End Date Palmira Lim MD PCP - General 05/08/[address] [place] [address] documented as of this encounter
--- OUTSIDE RECORDS SUMMARY | 2021-12-08 10:25 | XMS_ITS | Encounter Summary ---
:1999 Author Organization [employer] Address [address] [place] [address] Care Team Providers Name Role Phone Plamira Lim MD Primary Care Provider Reason for Visit Procedure/Equipment (Routine) - Canceled Specialty Diagnoses / Procedures Referred By Contact Refer red To Contact Diagnoses Pre-existing type 1 diabetes mellitus during in second trimester Denisha Serna, TUBE BENDER HAND, IN FLIGHT TECHNICIAN Procedures US OB BPP / SATYA Single [id number] [place] [address] Referral ID Status Reason Start Date Expiration Date Visits V isits Requested Authorized [id number] Canceled 06/11/2020 09/10/2021 18 18 Encounter Details Date Type Department Care Team Description 06/28/2020 Ancillary [facility] Denisha Serna, Pre-e xisting type 1 Procedure Services-Ultrasound TUBE BENDER HAND, IN FLIGHT TECHNICIAN diabetes mellitus [address], [address] [place], [place] second trimester [place] [phone] Social History Tobacco Use Types Packs/Day Years [...] this encounter Progress Notes Denisha Serna APRN, MITZI - 06/28/2020 8:45 AM CDT BPP 10/07. SATYA 25, polyhydramnios. MS-IN FLIGHT TECHNICIAN documented in this encounter Plan of Treatment Not on filedocumented as of this encounter Procedures Procedure Name Priority Date/Time Associated Diagnosis Comme nts US OB BPP / SATYA Routine 06/28/2020 9:15 AM Pre-existing type 1 Results for this SINGLE CDT diabetes mellitus procedure are in during in the resu lts second trimester section. documented in this encounter Results US OB BPP / SATYA Single (06/28/2020 9:15 AM CDT) Anatomical Region Laterality Modality Pelvis Ultrasound Specimen (Source) Anatomical Collection Method Collection Time Re ceived Time Location / / Volume Laterality 06/28/2020 8:41 AM CDT Impressions 06/28/2020 10:26 AM CDT TECHNIQUE: Limited ultrasound examination was performed for evaluation of amniotic fIuid index (SATYA) and biophysical profile (BPP). ? FINDINGS: Type of Gestation: Colby Presentation: ??Vertex Cardiac Rate: ??133 BPM Placental Position: ??Posterior . 4-quadrant SATYA: ??25.5 cm, reflecting po lyhydramnios, similar compared to prior examination, when 4 quadrant SATYA measured 24.2 cm. Q1: ??6.8 cm. Q2: ??4.4 cm. Q3: ??7.8 cm. Q4: ??6.5 cm. Other Findings: None. BPP breathing: ??2 (One episode of fet al breathing for 30 seconds) Gross movements: ??2 (3 body, limb , discrete or separate movements) tone: ??2 (One episode of extensio n/flexion of limbs, head or trunk) Amniotic fluid single deepest pocket: ?? 2 (greater than or equal to 2 cm) TOTAL SCORE: 8 BPP results called: N/A SATYA results called: N/A Procedure Note Dhruv Sanchez MD - 06/28/2020Format ting of this note might be different from the original. IMPRESSION TECHNIQUE: Limited ultrasound examinatio n was performed for evaluation of amniotic fIuid index (SATYA) and biophysical profile (BPP). FINDINGS: Type of Gestation: Colby Presentation: Vertex Cardiac Rate: 133 BPM Placental Position: Posterior . 4-quadrant SATYA: 25.5 cm, reflecting poly hydramnios, similar compared to prior examination, when 4 quadrant SATYA measured 24.2 cm. Q1: 6.8 cm. Q2: 4.4 cm. Q3: 7.8 cm. Q4: 6.5 cm. Other Findings: None. BPP breathin (One episode of breathing for 30 seconds) Gross movements: 2 (3 body, limb, discrete or separate movements) tone: 2 (One episode of extension/ flexion of limbs, head or trunk) Amniotic fluid single deepest pocket: 2 (greater than or equal to 2 cm) TOTAL SCORE: 8 BPP results called: N/A SATYA results called: N/A Denisha Serna TUBE BENDER HAND, IN FLIGHT TECHNICIAN [facility] [place] documented in this encounter Visit Diagnoses Diagnosis Pre-existing type 1 diabetes mellitus du ring in second trimester documented in this encounter Care Teams Cryogenics Repairer Relationship Specialty Start Date End Date Palmira Lim MD PCP - General 05/08/[address] [address] documented as of this encounter
--- OUTSIDE RECORDS SUMMARY | 2021-12-08 10:25 | XMS_ITS | Encounter Summary ---
:1999 Author Organization [employer] Address [address] [place] [address] Care Team Providers Name Role Phone Palmira Lim MD Primary Care Provider Encounter Details Date Type Department Care Team Description 07/19/2020 Lab Visit [facility] Gestation al hypertension, Services-[facility] third trimester [address] [facility] [address] [place] [address] Social History Tobacco Use [...] encounter Progress Notes Shana Hernández MD - 07/19/2020 1:35 PM CDT Reece Dahl, Your recent lab results show your kidney and liver function remain normal. With these labs you have gestational hypertension, not preeclampsia. As I mentioned we will treat these the same way and continue your weekly visits and monitoring as scheduled for your diabetes. Please contact our clinicat [phone] or via [employer] if you have any questions. Thanks, Shana Hernández MD documented in this encounter Plan of Treatment Not on filedocumented as of this encounter Procedures Procedure Name Priority Date/Time Associated Diagnosis Comme nts PLATELETS Routine 07/19/2020 1:55 PM Gestational Results f or this CDT hypertension, third procedur e are in trimester the results section. TP/CREA RATIO, Routine 07/19/2020 1:55 PM Gestational Results for this URINE CDT hypertension, third procedur e are in trimester the results section. documented in this encounter Results (ABNORMAL) TP/Crea Ratio, Urine (07/19/2020 1:55 PM CDT) P athologist Signature Total Protein, 20 (H) 0 - 14 07/19/2020 [facility] Urine, Random mg/dL 6:47 PM CDT LABORATORY Creatinine, 154 >20 mg/dL 07/19/2020 [facility] Urine, Random 6:47 PM CDT LABORATORY TP/Creat 0.13 0.00 - 07/19/2020 [facility] Ratio, Urine 0.20 6:47 PM CDT LABORATORY Random Specimen Anatomical Collection Method Collection Time Receive d Time (Source) Location / / Volume Laterality Urine Non-blood 07/19/2020 1:55 PM 1:55 Collection / CDT PM CDT Unknown Narrative [facility] - 07/19/2020 6:47 P M CDT Low urine creatinine values coupled with low urine protein values can artifactually increase the urine protein/creatinine re sults. Correlate results of ratio with creatinine results. Shana Hernández MD LAB_1 Performing Organization Address City/State/ZIP Code Phon e Number [facility] [address] [place] [address] Platelet Count [PLT] (07/19/2020 1:55 PM CDT) P athologist Signature Platelets 273 150 - 450 07/19/2020 [place] x10(9)/L 3:39 PM CDT LABORATORY Specimen Anatomical Collection Method / Collection Time Recei andrade Time (Source) Location / Volume Laterality Blood Venipuncture / 07/19/2020 1:55 07/19/2020 1:55 Unknown PM CDT PM CDT Shana Hernández MD LAB_1 Performing Organization Address City/State/ZIP Code Phon e Number [facility] [address] [place] [address] documented in this encounter Visit Diagnoses Diagnosis Gestational hypertension, third trimeste r documented in this encounter Care Teams Warehouse Attendant Relationship Specialty Start Date End Date Palmira Lim MD PCP - General 05/08/[address] [place], [place] [address] documented as of this encounter
--- OUTSIDE RECORDS SUMMARY | 2021-12-08 10:25 | XMS_ITS | Encounter Summary ---
:1999 Author Organization [facility] Address [address] [place] [address] Care Team Providers Name Role Phone Palmira Lim MD Primary Care Provider Reason for Visit Procedure/Equipment (Routine) - Canceled Specialty Diagnoses / Procedures Referred By Contact Refer red To Contact Diagnoses Pre-existing type 1 diabetes mellitus during in second trimester Denisha Serna, FIELD TRAINING MANAGER, PELLETIZER OPERATOR Procedures US OB BPP / SATYA Single [id number] [place] [address] Referral ID Status Reason Start Date Expiration Date Visits V isits Requested Authorized [id number] Canceled 06/11/2020 09/10/2021 18 18 Encounter Details Date Type Department Care Team Description 07/05/2020 Ancillary [facility] Denisha Serna, Pre-e xisting type 1 Procedure Services-Ultrasound FIELD TRAINING MANAGER, PELLETIZER OPERATOR diabetes mellitus [address] [address] [address], [address] [place], [place] second trimester [place] [phone] Social History Tobacco Use Types Packs/Day Years [...] Progress Notes Denisha Serna APRN, CNP - 07/05/2020 12:45 PM CDT BPP 10/07, SATYA 22 cm, vertex MS-PELLETIZER OPERATOR documented in this encounter Plan of Treatment Not on filedocumented as of this encounter Procedures Procedure Name Priority Date/Time Associated Diagnosis Comme nts US OB BPP / SATYA Routine 07/05/2020 1:10 PM Pre-existing type 1 Results for this SINGLE CDT diabetes mellitus procedure are in during in the resu lts second trimester section. documented in this encounter Results US OB BPP / SATYA Single (07/05/2020 1:10 PM CDT) Anatomical Region Laterality Modality Pelvis Ultrasound Specimen (Source) Anatomical Collection Method Collection Time Re ceived Time Location / / Volume Laterality 07/05/2020 12:49 PM CDT Impressions 07/05/2020 1:33 PM CDT TECHNIQUE: Limited ultrasound examination was performed for evaluation of amniotic fIuid index (SATYA) and biophysical profile (BPP). ? FINDINGS: Type of Gestation: Colby Presentation: ??VERTEX Cardiac Rate: ??148 BPM Placental Position: ??POSTERIOR. 4-quadrant SATYA: ??22.0 cm. Q1: ??5.4 cm. Q2: ??5.8 cm. Q3: ??6.2 cm. Q4: ??4.5 cm. Other Findings: None. BPP breathing: ??2 [...] NA SATYA results called: NA Procedure Note Dhruv Abel MD - 07/05/2020Formatti ng of this note might be different from the original. IMPRESSION TECHNIQUE: Limited ultrasound examinatio n was performed for evaluation of amniotic fIuid index (SATYA) and biophysical profile (BPP). FINDINGS: Type of Gestation: Colby Presentation: VERTEX Cardiac Rate: 148 BPM Placental Position: POSTERIOR. 4-quadrant SATYA: 22.0 cm. Q1: 5.4 cm. Q2: 5.8 cm. Q3: 6.2 cm. Q4: 4.5 cm. Other Findings: None. BPP breathin (One episode of breathing for 30 seconds) Gross movements: 2 (3 body, limb, discrete or separate movements) tone: 2 (One episode of extension/ flexion of limbs, head or trunk) Amniotic fluid single deepest pocket: 2 (greater than or equal to 2 cm) TOTAL SCORE: 8 BPP results called: NA SATYA results called: NA Denisha Serna APRN, PELLETIZER OPERATOR [facility] documented in this encounter Visit Diagnoses Diagnosis Pre-existing type 1 diabetes mellitus du ring in second trimester documented in this encounter Care Teams Talent Acquisition Project Manager Relationship Specialty Start Date End Date Palmira Lim MD PCP - General 05/08/[address] [place] [address] documented as of this encounter
--- OUTSIDE RECORDS SUMMARY | 2021-12-08 10:25 | XMS_ITS | Encounter Summary ---
:1999 Author Organization [employer] Address [address] [place] [address] Care Team Providers Name Role Phone Palmira Lim MD Primary Care Provider Reason for Visit Reason Comments Routine Visit 32w6d Encounter Details Date Type Department Care Team Description 07/19/2020 Routine [facility] Shana Hernández MD Routine Services-SCOW CAPTAIN [address] [address] Visit (32w6d) [address], [address] [place] [phone] Social History Tobacco Use Types Packs/Day Years [...] Sign Reading Time Taken Comments Blood Pressure 148/90 07/19/2020 1:20 PM CDT Pulse 104 07/19/2020 1:20 PM CDT Temperature - - Respiratory Rate - - Oxygen Saturation - - Inhaled Oxygen Concentration - - Weight 95.7 kg (211 lb) 07/19/2020 1:20 PM CDT Height - - Body Mass Index 37.38 07/18/2020 2:05 PM CDT documented in this encounter Progress Notes Shana Hernández MD - 07/19/2020 1:45 PM CDT [facility] CC: Follow-up care S: Nabila Serna is feeling well today. 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 Clients are now able to not wear a mask. She has not yet gotten her Covid vaccine. BG per continuous glucose monitor charted in 07/18 endo visit, average glucose in afternoons is 130-150, fastings around 80. BP 120-130/90s, hasn't checked this week She denies loss of fluid, changes in vaginal discharge or vaginal bleeding. Reports good movement. She has been having no regular contractions. Denies headache, vision changes, chest pain, shortness of breath. complications: - Type 1 diabetes - Hypothyroidism - gHTN vs preE - Hx of HSV - Hx THC use, stopped when found out she was O: Filed Vitals: 07/19/20 1320 BP: (!) 148/90 Pulse: (!) 104 Weight: 211 lb (95.7 kg) Gen: alert, oriented, NAD See OB flowsheet. A/P: 19 y.o. at 32w6d by 7w3d US presenting for follow-up care. Care: - OB labs reviewed: A, Rubella immune, HIV neg, Heb B nonreactive, RPR negative - Genetics: NT normal - Ultrasound: L2 US normal - Rh positive, Rhogam not indicated - Hgb 10.4, RPR neg - S/p flu 03/08/20, Tdap 06/22/20 - Recommended covid vaccine, may be interested - GBS at next visit - Feed: breast, pump rx given - Contraception: IUD Type 1 DM ?- Follows in endocrinology; [facility] Outside Sales Account Executive, Dr. Maldonado.??Last appointment 07/18. Using Lantus 60U qHS and insulin Novolog 1 unit per 2 gm CHO plus correction 1 per 30 above 120. ?- Baseline HELLP labs??normal, collecting again today ? - Opthalmology appointment; last on 06/07/2020; recommended repeat in 1 year ? - PPx baby Asa through??delivery ?-??07/18 hemoglobin A1c 6.4%. ??Continue current insulin regimen as advised by endocrine.?- Growth US:?07/09 EFW 2528g 99%, AC 99%, SATYA 30cm. Fundal height size greater than dates.?MFM ultrasound??scheduled 08/06/2020 ?- testing: BPP??twice weekly.?BPP today??10/07, SATYA 30cm Hypothyroid. ??- on Synthroid per Endo, levothyroxine 50 mcg daily Thu-Thu, and 100 mcg on Thu and Sundays TSH 3.11 ?? General herpes. ?? - ??Plan for Valtrex??starting now until delivery, prescribed today ?? Polyhydramnios, SATYA 30 today - continue twice weekly BPPs - discussed risk of contractions and cord prolapse if ROM occurs without head well applied to cervix ?? Gestational Hypertension vs Preeclampsia w/o SF - elevated BP on 06/13, 07/18 and 07/19 - HELLP labs and UPC repeated today - testing twice weekly for DM1 - Recommend delivery at 37 weeks, discussed w/ pt today - call if BP >150/100, take BP at home BID Follow-up in clinic in 1 week. Shana Hernández MD Brigette Connor LPN - 07/19/2020 1:45 PM CDT Patient's BPP 10/07. SATYA 30.1 cm. Next appt scheduled 07/23/2020. No NST needed today per Ale Hernández MD. Patient informed and reminded of upcoming appts. Verbalized understanding and all questions answered. documented in this encounter Plan of Treatment Not on filedocumented as of this encounter Results (ABNORMAL) TP/Crea Ratio, Urine (07/19/2020 1:55 PM CDT) athologist Signature Total Protein, 20 (H) 0 - 14 07/19/2020 [facility] Urine, Random mg/dL 6:47 PM CDT LABORATORY Creatinine, 154 >20 mg/dL 07/19/2020 [facility] Urine, Random 6:47 PM CDT LABORATORY TP/Creat 0.13 0.00 - 07/19/2020 [facility] Ratio, Urine 0.20 6:47 PM CDT LABORATORY Random Specimen Anatomical Collection Method Collection Time Receive d Time (Source) Location / / Volume Laterality Urine Non-blood 07/19/2020 1:55 PM 1:55 Collection / CDT PM CDT Unknown Narrative [facility] - 07/19/2020 6:47 P M CDT Low urine creatinine values coupled with low urine protein values can artifactually increase the urine protein/creatinine re sults. Correlate results of ratio with creatinine results. Shana Hernández MD LAB_1 Performing Organization Address City/[facility]/ZIP Code Phon e Number [facility] [address] [place] [address] Platelet Count [PLT] (07/19/2020 1:55 PM CDT) athologist Signature Platelets 273 150 - 450 07/19/2020 [place] x10(9)/L 3:39 PM CDT LABORATORY Specimen Anatomical Collection Method / Collection Time Recei andrade Time (Source) Location / Volume Laterality Blood Venipuncture / 07/19/2020 1:55 07/19/2020 1:55 Unknown PM CDT PM CDT Shana Hernández MD LAB_1 Performing Organization Address City/[facility] Phon e Number [facility] [address] [place], [place] [address] AST (SGOT) [AST] (07/18/2020 2:31 PM CDT) athologist Signature AST (SGOT) 14 10 - 40 U/L 07/19/2020 [place] 2:52 PM CDT LABORATORY Specimen Anatomical Collection Method / Collection Time Recei andrade Time (Source) Location / Volume Laterality Blood Venipuncture / 07/18/2020 2:31 07/18/2020 2:31 Unknown PM CDT PM CDT Shana Hernández MD LAB_1 Performing Organization Address City/[facility]/ZIP Code Phon e Number [facility] [address] [place], [place] [address] Alanine Aminotransferase [ALT] (07/18/2020 2:31 PM CDT) athologist Signature ALT (SGPT) 11 0 - 55 U/L 07/19/2020 [place] 2:52 PM CDT LABORATORY Specimen Anatomical Collection Method / Collection Time Recei andrade Time (Source) Location / Volume Laterality Blood Venipuncture / 07/18/2020 2:31 07/18/2020 2:31 Unknown PM CDT PM CDT Shana Hernández MD LAB_1 Performing Organization Address City/[facility]/ZIP Code Phon e Number [facility] [address] [place] [address] documented in this encounter Visit Diagnoses Diagnosis Supervision of other high risk , antepartum - Primary Pre-existing type 1 diabetes mellitus du ring in second trimester Maternal thyroid dysfunction, antepartum ([facility]) Thyroid dysfunction, antepartum Hypothyroidism, unspecified type ([facility]) Herpes simplex vulvovaginitis ([facility]) Gestational hypertension, third trimeste r documented in this encounter Care Teams Health Counselor Relationship Specialty Start Date End Date Palmira Lim MD PCP - General 05/08/[address] [place], [place] [address] documented as of this encounter
--- OUTSIDE RECORDS SUMMARY | 2021-12-08 10:25 | XMS_ITS | Encounter Summary ---
:2000 Author Organization [employer] Address [address] [place] [address] Care Team Providers Name Role Phone Palmira Lim MD Primary Care Provider Reason for Visit Reason Comments NST,(NON STRESS TEST) Encounter Details Date Type Department Care Team Description 06/25/2020 Routine [facility] Pratibha PatelT,(NON STRESS Services-FIRE ENGINEER M, DO TEST) [address] [place], [address] [place] [address] [phone] Social History Tobacco Use Types Packs/Day Years [...] documented as of this encounter Progress Notes Tiffany Meyer LPN - 06/25/2020 2:00 PM CDT Patient's BPP 8/8. SATYA 24.2cm. Next appt scheduled 06/28/2020 No NST needed today per Karmen Patel MD.Patient informed and reminded of upcoming appts. Verbalized understanding and all questions answered. documented in this encounter Nursing Notes Tiffany Meyer LPN - 06/25/2020 2:00 PM CDT Patient's BPP 8/8. SATAY 24.2 cm. Next appt scheduled 06/28/2020. No NST needed today per Karmen Patel MD. Patient informed and reminded of upcoming appts. Verbalized understanding and all questions answered. documented in this encounter Plan of Treatment Not on filedocumented as of this encounter Visit Diagnoses Diagnosis Pre-existing type 1 diabetes mellitus du ring in second trimester - Primary documented in this encounter Care Teams Sign Shop Supervisor Relationship Specialty Start Date End Date Palmira Lim MD PCP - General 05/08/[address] [place] [address] documented as of this encounter
--- OUTSIDE RECORDS SUMMARY | 2021-12-08 10:25 | XMS_ITS | Encounter Summary ---
:2000 Author Organization [employer] Address [address] [place] [address] Care Team Providers Name Role Phone Palmira Lim MD Primary Care Provider Reason for Visit Procedure/Equipment (Routine) - Incomplete Specialty Diagnoses / Procedures Referred By Contact Refer red To Contact Diagnoses Pre-existing type 1 diabetes mellitus during in second trimester Anita Denis MD Procedures MFM US BPP/NST, SATYA, OB US F/U MFM US OB US F/U 3931 [place], [place] [address] Referral ID Status Reason Start Date Expiration Date Visits V isits Requested Authorized [id number] Incomplete 06/11/2020 09/10/2021 10 10 Encounter Details Date Type Department Care Team Description 08/06/2020 [facility] Anita Denis, Pre-exi sting type 1 Procedure 3931 Maternal diabetes mellitus Medicine 3931 [facility] during in 3931 [facility] second trimester [facility] [place] [address] [place] [address] [phone] Social History Tobacco Use Types Packs/Day Years [...] Name Priority Date/Time Associated Diagnosis Comme nts [facility] US BPP/NST, Routine 08/06/2020 10:53 AM Pre-existing type 1 Results for this SATYA, OB US F/U CDT diabetes mellitus procedur e are in during in the resu lts second trimester section. documented in this encounter Results [facility] US BPP/NST, SATYA, OB US F/U (08/06/2020 10:53 AM CDT) Anatomical Region Laterality Modality Pelvis Ultrasound Study GA Study Date Study TATE Working TATE (Source) W eight (Method) 37w1d 08/06/2020 08/26/2020 09/07/2020 (Final TATE by 378 3 g (Alysia 1984 (BPD, /CNJossy) HC, AC, FL) )37 84 g (Alysia 1984 ( AC, FL) )3803 g (Janeen k 1984 (BPD, AC, FL) )3718 g (Alysia 1984 (HC, AC, F L) )4071 g (Alysia 1983 ( AC) )3873 g (Hadlock 1983 ( HC, AC) )4022 g (Shepar d 1981 (BPD, AC) ) Result Name Value Comments GA by US Calc 260 days 260 BPD 9.44 cm 269 HC 33.85 cm 273 AC 37.42 cm 289 FL 6.75 cm 243 HL 5.88 cm FL/BPD 71.5 % FL/AC 18.04 % HC/AC 0.9 CI 79.86 % SATYA Q1 8.39 cm SATYA Q2 7.45 cm SATYA Q3 3.8 cm SATYA Q4 5.75 cm SATYA 25.39 cm FHR 129 bpm BPP UAR - PSV UAR - S/D Ratio UAR - RI UAR - PI MCA - PSV MCA - S/D Ratio MCA - PI Specimen (Source) Anatomical Location Collection Method / Collectio n Time Received Time / Laterality Volume Impressions 08/06/2020 12:11 PM CDT S: 1) Intrauterine at 35 weeks 3 days gestational age 2) No anomalies noted 3) biometry is consistent with ges tational age. ?? 4) The amniotic fluid volume is mildly i ncreased, which is stable 5) No evidence of placenta previa 6) BPP with NST 12/09 RECOMMENDATIONS: -Continue twice weekly testing -Weekly labs for new diagnosis of preecl ampsia without severe features (PCR 0.3 on 08/02/20) -Delivery at 37 weeks due to preeclampsi a. Early, if severe features develop Mild range BP in clinic today, no sympto ms. Patient has follow up with OB on 08/09/20 Narrative 08/06/2020 12:11 PM CDT Patient Name: Nabila Serna ??Attending: Kamila Delgadillo MD Patient ??Machine Setup Operator: Jasmine Vick RDOR , Age: 709/02/2000, 19 y.o. ??GA Prior t o Exam: 35w3d LMP: Patient's last menstrual period was 11/27/2019 (exact date). ??GA by Today's US: 37w1d Pregnancies: ??GA TATE: 35w3d Final TATE by MD/KATIANAM Pre- BMI: ??28.70 ??TATE: 09/07/2020 Hx/Indications: Type 1 IDDM Hypothyroid Neg First Tri Screen Hx PE/DKA Hospitalization On Lovenox On baby asa LGA Evaluation Gestation Type johnson Cardiac Activity present Motion normal Presentation cephalic Amniotic Fluid normal Placenta Location posterior Placenta Appearance appears normal Placenta Cord Insertion suboptimally vis ualized BPP Breathing 2 Tone 2 Movement 2 Amniotic Fluid 2 Total Score 8 Measurement Value Rank GA BPD 9.44 cm > 99% 38w3d HC 33.85 cm 92% 39w0d AC 37.42 cm > 99% 41w2d FL 6.75 cm 25% 34w5d HL 5.88 cm 5 - 50% ?? FL/BPD 71.5 % 71 - 87% ?? FL/AC 18.04 % < 20% ?? HC/AC 0.9 ?? CI 79.86 % 70 - 86% ?? SATYA Q1 8.39 cm ?? SATYA Q2 7.45 cm ?? SATYA Q3 3.8 cm ?? SATYA Q4 5.75 cm ?? SATYA 25.39 cm > 95% ?? FHR 129 bpm ?? Weight: 3,783 g (8 lb 5.4 oz), > 9 9% Projected EFW at 39w:4,834g (10 lb 10.5 oz) Head Cranium appears normal Midline Falx appears normal Lateral Ventricle appears normal Cavum Septi Pellucidi appears normal Heart Heart Rhythm regular Situs normal 4 Chamber View appears normal LVOT/AO inadequately visualized RVOT/PA inadequately visualized Abdomen Stomach appears normal Urinary Tract Right Kidney appears normal Left Kidney appears normal Bladder appears normal ?? Maternal Evaluation Cervix Inadequately visualized Uterus No rmal Cervical Length ? Approach N/A Right Ovary Inadequately Vi sualized With Fundal Pressure (cm) N/A ?? Left Ov jean-paul Inadequately Visualized Funneling N/A Right Adnexa Normal Cul-de-sac No fluid seen Left Adnexa Nor mal ?? Impression Anita Denis MD [facility] documented in this encounter Visit Diagnoses Diagnosis Pre-existing type 1 diabetes mellitus du ring in second trimester documented in this encounter Care Teams Floatman Relationship Specialty Start Date End Date Palmira Lim MD PCP - General 05/08/[address] [place] [address] documented as of this encounter
--- OUTSIDE RECORDS SUMMARY | 2021-12-08 10:25 | XMS_ITS | Encounter Summary ---
:2000 Author Organization [employer] Address [address] [place] [address] Care Team Providers Name Role Phone Palmira Lim MD Primary Care Provider Reason for Visit Procedure/Equipment (Routine) - Canceled Specialty Diagnoses / Procedures Referred By Contact Refer red To Contact Diagnoses Pre-existing type 1 diabetes mellitus during in second trimester Denisha Serna, SENIOR DIRECTOR INSIGHT, MORTGAGE OPERATIONS MANAGER Procedures US OB BPP / SATYA Single [id number] [place] [id number] Referral ID Status Reason Start Date Expiration Date Visits V isits Requested Authorized [id number] Canceled 06/11/2020 09/10/2021 18 18 Encounter Details Date Type Department Care Team Description 07/02/2020 Ancillary [facility] Denisha Serna, Pre-e xisting type 1 Procedure Services-Ultrasound SENIOR DIRECTOR INSIGHT, MORTGAGE OPERATIONS MANAGER diabetes mellitus [address] [place] [address] [address], [address] [place], [place] second trimester [place] [id number] [phone] Social History Tobacco Use Types Packs/Day Years [...] Progress Notes Denisha Serna APRN, MITZI - 07/02/2020 12:45 PM CDT BPP /, SATYA 27, polyhydramnios. Vertex. MS-MORTGAGE OPERATIONS MANAGER documented in this encounter Plan of Treatment Not on filedocumented as of this encounter Procedures Procedure Name Priority Date/Time Associated Diagnosis Comme nts US OB BPP / SATYA Routine 07/02/2020 1:12 PM Pre-existing type 1 Results for this SINGLE CDT diabetes mellitus procedure are in during in the resu lts second trimester section. documented in this encounter Results US OB BPP / SATYA Single (07/02/2020 1:12 PM CDT) Anatomical Region Laterality Modality Pelvis Ultrasound Specimen (Source) Anatomical Collection Method Collection Time Re ceived Time Location / / Volume Laterality 07/02/2020 12:46 PM CDT Impressions 07/02/2020 1:51 PM CDT TECHNIQUE: Limited ultrasound examination was performed for evaluation of amniotic fIuid index (SATYA) and biophysical profile (BPP). ? FINDINGS: Type of Gestation: Colby Presentation: ??VERTEX Cardiac Rate: ??142 BPM Placental Position: ??POSTERIOR. 4-quadrant SATYA: ??27.6 cm. Known polyhyd ramnios. Previously SATYA measured 25.5 cm. Q1: ??7.8 cm. Q2: ??4.8 cm. Q3: ??7.6 cm. Q4: ??7.3 cm. Other Findings: None. BPP breathing: ??2 [...] NA SATYA results called: NA Procedure Note Jb Vargas MD - 07/02/2020Fo rmatting of this note might be different from the original. IMPRESSION TECHNIQUE: Limited ultrasound examinatio n was performed for evaluation of amniotic fIuid index (SATYA) and biophysical profile (BPP). FINDINGS: Type of Gestation: Colby Presentation: VERTEX Cardiac Rate: 142 BPM Placental Position: POSTERIOR. 4-quadrant SATYA: 27.6 cm. Known polyhydra mnios. Previously SATYA measured 25.5 cm. Q1: 7.8 cm. Q2: 4.8 cm. Q3: 7.6 cm. Q4: 7.3 cm. Other Findings: None. BPP breathin (One episode of breathing for 30 seconds) Gross movements: 2 (3 body, limb, discrete or separate movements) tone: 2 (One episode of extension/ flexion of limbs, head or trunk) Amniotic fluid single deepest pocket: 2 (greater than or equal to 2 cm) TOTAL SCORE: 8 BPP results called: NA SATYA results called: NA Denisha Fenton Daphne NICK, MORTGAGE OPERATIONS MANAGER [facility] documented in this encounter Visit Diagnoses Diagnosis Pre-existing type 1 diabetes mellitus du ring in second trimester documented in this encounter Care Teams Diffuser Operator Relationship Specialty Start Date End Date Palmira Lim MD PCP - General 05/08/[address] [place] [address] documented as of this encounter
--- OUTSIDE RECORDS SUMMARY | 2021-12-08 10:25 | XMS_ITS | Encounter Summary ---
:2000 Author Organization [employer] Address [address] [place] [address] Care Team Providers Name Role Phone Palmira Lim MD Primary Care Provider Reason for Visit Reason Comments NST,(NON STRESS TEST) Encounter Details Date Type Department Care Team Description 07/02/2020 Routine [facility] Shana Hernández MD NST,(NON STRESS Services-NURSE HEAD [address] TEST) [address], [address] [place] [phone] Social History Tobacco Use Types Packs/Day Years [...] encounter Progress Notes Petey Jang LPN - 07/02/2020 1:30 PM CDT Patient's BPP 10/07. SATYA 27.59 cm. Next appt scheduled 07/05/2020. No NST needed today per Dr. Hernández. Patient informed and reminded of upcoming appts. Verbalized understanding and all questions answered. documented in this encounter Plan of Treatment Not on filedocumented as of this encounter Visit Diagnoses Diagnosis Pre-existing type 1 diabetes mellitus du ring in second trimester - Primary documented in this encounter Care Teams Hat Blocking Machine Operator Relationship Specialty Start Date End Date Palmira Lim MD PCP - General 05/08/[address] [place] [address] documented as of this encounter
--- OUTSIDE RECORDS SUMMARY | 2021-12-08 10:25 | XMS_ITS | Encounter Summary ---
:2000 Author Organization [employer] Address [address] [place] [address] Care Team Providers Name Role Phone Palmira Lim MD Primary Care Provider Reason for Visit Reason Comments Routine Visit Encounter Details Date Type Department Care Team Description 06/28/2020 Routine [facility] Pratibha Patel Routine Services-BACK OFFICE [place]ICAL [place] [address] [place] [address] [place], [address] [place] [address] [phone] Social History Tobacco Use Types Packs/Day Years [...] Sign Reading Time Taken Comments Blood Pressure 122/62 06/28/2020 9:48 AM CDT Pulse 104 06/28/2020 9:48 AM CDT Temperature - - Respiratory Rate - - Oxygen Saturation - - Inhaled Oxygen Concentration - - Weight 88.9 kg (196 lb) 06/28/2020 9:48 AM CDT Height - - Body Mass Index 33.64 06/13/2020 1:56 PM CDT documented in this encounter Patient Instructions Patient InstructionsPratibha Patel DO - 06/28/2020 10:00 AM CDT Thank you for choosing us for your care. We recommend you review the following information in the book ???Your Guide to ?? : ??? Testing - Group B Strep Testing Additional Handouts ??? Read, Talk, Sing brochure ??? [employer] White Animals book ??? Center brochure Have you selected a health care provider for your baby? Our Clinician Finder Team is available to assist you by calling [phone]. Your Guide to - https://user-[employer]x.cld.bz/ZjwhzoIojsppfi-Nogy-Bsoci-iv-n-Zkndcvf- Preparing for Childbirth - https://user-[employer] Beauty.cld.bz/YlvppbNtyjtumq-Pxd-Nvyo-of-Motherhood Taking Care of You and Your - https://user-[employer] Beauty.cld.bz/KxyigcBfnarzyk-E-Tzx-Beginning documented in this encounter Progress Notes Pratibha Patel DO - 06/28/2020 10:00 AM CDT [facility] CC: Follow-up care S: Nabila Serna is feeling well today. She had a BP cuff but has not used it yet. Her BS have been OK. She denies loss of fluid, changes in vaginal discharge or vaginal bleeding. Reports good fetalmovement. She has been having no regular contractions. complications: Patient Active Problem List Diagnosis Date Noted ??? Genital herpes simplex (HRC) 06/22/2020 ??? Supervision of other high risk , antepartum 03/08/2020 ??? History of pulmonary embolism 03/08/2020 ??? Maternal thyroid dysfunction, antepartum 03/08/2020 ??? Constipation 03/08/2020 ??? Pre-existing type 1 diabetes mellitus during in second trimester 03/08/2020 ??? Hypothyroid (HRC) ??? Herpes genitalia (HRC) ??? Attention deficit hyperactivity disorder (ADHD) 10/30/2008 O: Filed Vitals: 06/28/20 0948 BP: 122/62 Pulse: (!) 104 Weight: 196 lb (88.9 kg) Gen: alert, oriented, NAD See OB flowsheet. A/P: 19 y.o. at 29w6d by first trimester US presenting for follow-up care. Care: - OB labs reviewed: A, Rubella immune, Heb B Ag non reactive - Genetics: NT normal - Anatomy ultrasound: normal level 2 US - Rh positive, Rhogam not indicated - 28 weeks along with Hgb 10.4, RPR - S/p flu 03/08/20, Tdap 06/22/20 - GBS at 36 weeks - Feed: breast - Contraception: unsure possibly mirena IUD - continue taking vitamins 1. Type 1 DM -follows in endocrinology - Baseline HELLP labs??03/08/2020: ??PCR 0.09, LFTs normal, plts 287k. - Opthalmology appointments in 1st and 3rd trimester - PPx baby Asa from 12-16 weeks through??delivery - Primary Law Clerk:?Khoi Quevedo Law Clerk, Dr. Maldonado.?? - 06/13 hemoglobin A1c 7.2. Continue current insulin regimen as advised by endocrine. - Growth US: 06/21 EFW 99 percentile, AC 99%, SATYA 26. Fundal height size greater than dates. MFM ultrasound scheduled 07/09/2020 - testing: BPP twice weekly at 30 wk. BPP today 10/07 SATYA 25 - Timing of delivery: Between 86e3p-82h2h for well controlled, 67k9h-96n9x for poorly controlled. ?? 2. Hypothyroid. --subclinical. ??Synthroid 50 mcg daily??+2 on weekends,??per endo. 06/11 TSH 2.44 ?? 3. General herpes. ?? -Call for outbreaks and will order Valtrex. ??Plan for Valtrex??or acyclovir??36 weeks until delivery. 4. polyhydramnios -SATYA 25 today Instructed her to find her BP cuff at home and check her BP daily at home Follow-up in clinic in 1 weeks. Pratibha Patel DO 06/28/2020 9:52 AM documented in this encounter Plan of Treatment Not on filedocumented as of this encounter Visit Diagnoses Diagnosis History of pulmonary embolism Personal history of pulmonary embolism Other constipation Pre-existing type 1 diabetes mellitus du ring in second trimester Maternal thyroid dysfunction, antepartum (HRC) Thyroid dysfunction, antepartum Supervision of other high risk , antepartum Postinfectious hypothyroidism Unspecified hypothyroidism Herpes simplex cervicitis Attention deficit hyperactivity disorder (ADHD), unspecified ADHD type (HRC) documented in this encounter Care Teams Barmaid Relationship Specialty Start Date End Date Palmira Lim MD PCP - General 05/08/[address] [place] [address] documented as of this encounter
--- OUTSIDE RECORDS SUMMARY | 2021-12-08 10:25 | XMS_ITS | Encounter Summary ---
:2000 Author Organization [employer] Address [address] [place] [address] Care Team Providers Name Role Phone Palmira Lim MD Primary Care Provider Reason for Visit Reason Comments Routine Visit Encounter Details Date Type Department Care Team Description 07/05/2020 Routine [facility] Pratibha Patel Routine Services-SPEED READING [place] [address] [place] [address] [place], [address] [place] [address] [phone] Social History Tobacco Use Types Packs/Day Years [...] Sign Reading Time Taken Comments Blood Pressure 130/73 07/05/2020 2:25 PM CDT Pulse 84 07/05/2020 2:25 PM CDT Temperature - - Respiratory Rate - - Oxygen Saturation - - Inhaled Oxygen Concentration - - Weight 93.4 kg (206 lb) 07/05/2020 2:25 PM CDT Height - - Body Mass Index 35.36 06/13/2020 1:56 PM CDT documented in this encounter Patient Instructions Patient InstructionsPratibha Patel DO - 07/05/2020 2:20 PM CDT Thank you for choosing us for [...] is available to assist you by calling [phone]. Your Guide to - https://user-[employer].cld.bz/UnnqlzWqscdrwp-Qvkg-Amkoh-za-t-Vmocfvt- Preparing for Childbirth - https://user-[employer].cld.bz/RtvkgtSyzwhmov-Vww-Xrig-of-Motherhood Taking Care of You and Your [place] - https://user-[employer]Fit.cld.bz/TvkkcpKitfkmwi-X-Lxz-Beginning documented in this encounter Progress Notes Pratibha Patel DO - 07/05/2020 2:20 PM CDT [facility] CC: Follow-up care S: Nabila Serna is feeling well today. No concerns. Her BS are been good. Her BP has been normalat home. She denies loss of fluid, changes in [...] hyperactivity disorder (ADHD) 10/30/2008 O: Filed Vitals: 07/05/20 1425 BP: 130/73 Pulse: 84 Weight: 206 lb (93.4 kg) Gen: alert, oriented, NAD See OB flowsheet. A/P: 19 y.o. at 30w6d by first trimester US presenting for follow-up [...] labs??03/08/2020: ??PCR 0.09, LFTs normal, plts 287k. ?? (she is checking her BP at home) - Opthalmology appointments in 1st and 3rd trimester - PPx baby Asa from 12-16 weeks through??delivery - Primary Shook Machine Operator:?Khoi Quevedo Shook Machine Operator, Dr. Maldonado.?? -??06/13 hemoglobin A1c 7.2. ??Continue current insulin regimen as advised by endocrine.?? - Growth US:?06/21 EFW 99 percentile, AC 99%, SATYA 26. Fundal height size greater than dates.?MFM ultrasound??scheduled 07/09/2020 - testing: BPP??twice weekly??at 30 wk. ??BPP today 10/07 SATYA 22.00 - Timing of delivery: Between 03b7j-04u5m for well controlled, 90i2j-09n4g for poorly controlled.? 2. Hypothyroid. --subclinical. ??Synthroid 50 mcg daily??+2 on weekends,??per endo.?412 TSH 2.44 ?? 3. General herpes. ?? -Call for outbreaks and will order Valtrex. ??Plan for Valtrex??or acyclovir??36 weeks until delivery. ?? 4. polyhydramnios -SATYA 25 today Follow-up in clinic in 2 weeks. Pratibha Patel DO 07/05/2020 2:50 PM documented in this encounter Plan of Treatment Not on filedocumented as of this encounter Visit Diagnoses Diagnosis Supervision of other high risk , antepartum - Primary Pre-existing type 1 diabetes mellitus du ring in second trimester Maternal thyroid dysfunction, antepartum (HRC) Thyroid dysfunction, antepartum Genital herpes simplex, unspecified site (HRC) History of pulmonary embolism Personal history of pulmonary embolism Other constipation Postinfectious hypothyroidism Unspecified hypothyroidism Herpes simplex vulvovaginitis (HRC) Attention deficit hyperactivity disorder (ADHD), unspecified ADHD type (HRC) documented in this encounter Care Teams Milk Receiver Relationship Specialty Start Date End Date Palmira Lim MD PCP - General 05/08/[address] [place] [address] documented as of this encounter
--- OUTSIDE RECORDS SUMMARY | 2021-12-08 10:25 | XMS_ITS | Encounter Summary ---
:2000 Author Organization [employer] Address [address] [place] [address] Care Team Providers Name Role Phone Palmira Lim MD Primary Care Provider Reason for Visit Procedure/Equipment (Routine) - Canceled Specialty Diagnoses / Procedures Referred By Contact Refer red To Contact Diagnoses Pre-existing type 1 diabetes mellitus during in second trimester Denisha Serna, MUFFLER TENDER, FISH EGG PACKER Procedures US OB BPP / SATYA Single [id number] [place] [address] Referral ID Status Reason Start Date Expiration Date Visits V isits Requested Authorized [id number] Canceled 06/11/2020 09/10/2021 18 18 Encounter Details Date Type Department Care Team Description 08/02/2020 Ancillary [facility] Denisha Serna, Pre-e xisting type 1 Procedure Services-Ultrasound MUFFLER TENDER, FISH EGG PACKER diabetes mellitus [address] [address] [address] [address], [address] [place], [place] second trimester KAYLYN [place] [phone] Social History Tobacco Use Types Packs/Day Years [...] Progress Notes Denisha Serna APRN, CNP - 08/02/2020 12:45 PM CDT BPP 08/07 (0 for breathing) and read by Dr. Hernández today at apt. MS-FISH EGG PACKER Denisha Serna APRN, CNP - 08/02/2020 12:45 PM CDT NST today per Dr. Hernández. MS-FISH EGG PACKER documented in this encounter Plan of Treatment Not on filedocumented as of this encounter Procedures Procedure Name Priority Date/Time Associated Diagnosis Comme nts US OB BPP / SATYA Routine 08/02/2020 1:41 PM Pre-existing type 1 Results for this SINGLE CDT diabetes mellitus procedure are in during in the resu lts second trimester section. documented in this encounter Results US OB BPP / SATYA Single (08/02/2020 1:41 PM CDT) Anatomical Region Laterality Modality Pelvis Ultrasound Study GA Study Date Study TATE Working TATE (Source) W eight (Method) Result Name Value Comments FHR 137 bpm BPP 6 SATYA Q1 6.72 cm SATYA Q2 4.22 cm SATYA Q3 6.36 cm SATYA Q4 1.83 cm SATYA 19.13 cm Specimen (Source) Anatomical Collection Method Collection Time Re ceived Time Location / / Volume Laterality 08/02/2020 1:06 PM CDT Impressions 08/02/2020 2:15 PM CDT TECHNIQUE: Limited ultrasound examination was performed for evaluation of amniotic fIuid index (SATYA) and biophysical profile (BPP). ? FINDINGS: Type of Gestation: Colby Presentation: ??vertex Cardiac Rate: ??137 BPM Placental Position: ??posterior. 4-quadrant SATYA: ??19.1 cm. Q1: ??6.7 cm. Q2: ??4.2 cm. Q3: ??6.4 cm. Q4: ??1.8 cm. Other Findings: None. BPP breathing: ??0 (One episode of fet al breathing for 30 seconds) Gross movements: ??2 (3 body, limb , discrete or separate movements) tone: ??2 (One episode of extensio n/flexion of limbs, head or trunk) Amniotic fluid single deepest pocket: ?? 2 (greater than or equal to 2 cm) TOTAL SCORE: 6 BPP results called: OB Duty Nurse inform ed of BPP results by performing tube maker. SATYA results called: NA Procedure Note Mendoza Marion MD - 08/02/2020 IMPRESSION TECHNIQUE: Limited ultrasound examinatio n was performed for evaluation of amniotic fIuid index (SATYA) and biophysical profile (BPP). FINDINGS: Type of Gestation: Colby Presentation: vertex Cardiac Rate: 137 BPM Placental Position: posterior. 4-quadrant SATYA: 19.1 cm. Q1: 6.7 cm. Q2: 4.2 cm. Q3: 6.4 cm. Q4: 1.8 cm. Other Findings: None. BPP breathin (One episode of breathing for 30 seconds) Gross movements: 2 (3 body, limb, discrete or separate movements) tone: 2 (One episode of extension/ flexion of limbs, head or trunk) Amniotic fluid single deepest pocket: 2 (greater than or equal to 2 cm) TOTAL SCORE: 6 BPP results called: OB Duty Nurse inform ed of BPP results by performing tube maker. SATYA results called: NA Denisha Serna APRN, FISH EGG PACKER RAD US documented in this encounter Visit Diagnoses Diagnosis Pre-existing type 1 diabetes mellitus du ring in second trimester documented in this encounter Care Teams Chemical Blender Relationship Specialty Start Date End Date Palmira Lim MD PCP - General 05/08/[address] [place] [address] documented as of this encounter
--- OUTSIDE RECORDS SUMMARY | 2021-12-08 10:25 | XMS_ITS | Encounter Summary ---
:2000 Author Organization [employer] Address [address] [place] [address] Care Team Providers Name Role Phone Palmira Lim MD Primary Care Provider Reason for Visit Procedure/Equipment (Routine) - Canceled Specialty Diagnoses / Procedures Referred By Contact Refer red To Contact Diagnoses Pre-existing type 1 diabetes mellitus during in second trimester Denisha Serna, RELIGIOUS EDUCATION DIRECTOR, SINGLE STROKE PREFORMER Procedures US OB BPP / SATYA Single [id number] [place] [address] Referral ID Status Reason Start Date Expiration Date Visits V isits Requested Authorized [id number] Canceled 06/11/2020 09/10/2021 18 18 Encounter Details Date Type Department Care Team Description 06/25/2020 Ancillary [facility] Denisha Serna, Pre-e xisting type 1 Procedure Services-Ultrasound RELIGIOUS EDUCATION DIRECTOR, SINGLE STROKE PREFORMER diabetes mellitus [address] [address] [address], [address] [place], [place] second trimester K[place] [phone] Social History Tobacco Use Types Packs/Day Years [...] Progress Notes Denisha Serna APRN, CNP - 06/25/2020 1:30 PM CDT BPP 8/8, SATYA 24. MS-SINGLE STROKE PREFORMER documented in this encounter Plan of Treatment Not on filedocumented as of this encounter Procedures Procedure Name Priority Date/Time Associated Diagnosis Comme nts US OB BPP / SATYA Routine 06/25/2020 1:55 PM Pre-existing type 1 Results for this SINGLE CDT diabetes mellitus procedure are in during in the resu lts second trimester section. documented in this encounter Results US OB BPP / SATYA Single (06/25/2020 1:55 PM CDT) Anatomical Region Laterality Modality Pelvis Ultrasound Study GA Study Date Study TATE Working TATE (Source) W eight (Method) Result Name Value Comments FHR 143 bpm BPP 8 SATYA Q1 8.12 cm SATYA Q2 6.02 cm SATYA Q3 5.29 cm SATYA Q4 4.75 cm SATYA 24.18 cm Specimen (Source) Anatomical Collection Method Collection Time Re ceived Time Location / / Volume Laterality 06/25/2020 1:31 PM CDT Impressions 06/25/2020 3:04 PM CDT TECHNIQUE: Limited ultrasound examination was performed for evaluation of amniotic fIuid index (SATYA) and biophysical profile (BPP). ? FINDINGS: Type of Gestation: Colby Presentation: ??vertex Cardiac Rate: ??143 BPM Placental Position: ??posterior. 4-quadrant SATYA: ??24.2 cm. Q1: ??8.1 cm. Q2: ??6.0 cm. Q3: ??5.3 cm. Q4: ??4.8 cm. Other Findings: None. BPP breathing: ??2 [...] NA SATYA results called: NA Procedure Note Cj Qureshi MD - 06/25/2020Formatti ng of this note might be different from the original. IMPRESSION TECHNIQUE: Limited ultrasound examinatio n was performed for evaluation of amniotic fIuid index (SATYA) and biophysical profile (BPP). FINDINGS: Type of Gestation: Colby Presentation: vertex Cardiac Rate: 143 BPM Placental Position: posterior. 4-quadrant SATYA: 24.2 cm. Q1: 8.1 cm. Q2: 6.0 cm. Q3: 5.3 cm. Q4: 4.8 cm. Other Findings: None. BPP breathin (One episode of breathing for 30 seconds) Gross movements: 2 (3 body, limb, discrete or separate movements) tone: 2 (One episode of extension/ flexion of limbs, head or trunk) Amniotic fluid single deepest pocket: 2 (greater than or equal to 2 cm) TOTAL SCORE: 8 BPP results called: NA SATYA results called: NA Denisha Serna APRN, SINGLE STROKE PREFORMER [facility] documented in this encounter Visit Diagnoses Diagnosis Pre-existing type 1 diabetes mellitus du ring in second trimester documented in this encounter Care Teams Transitional Care Nurse Relationship Specialty Start Date End Date Palmira Lim MD PCP - General 05/08/[address] [place] [address] documented as of this encounter
--- OUTSIDE RECORDS SUMMARY | 2021-12-08 10:25 | XMS_ITS | Encounter Summary ---
:1999 Author Organization [employer] Address [address] [place] [address] Care Team Providers Name Role Phone Palmira Lim MD Primary Care Provider Reason for Visit Procedure/Equipment (Routine) - Canceled Specialty Diagnoses / Procedures Referred By Contact Refer red To Contact Diagnoses Pre-existing type 1 diabetes mellitus during in second trimester Denisha Serna, AUTOCAD DETAILER, BUSINESS CONSULTANT Procedures US OB BPP / SATYA Single [id number] [place] [address] Referral ID Status Reason Start Date Expiration Date Visits V isits Requested Authorized [id number] Canceled 06/11/2020 09/10/2021 18 18 Encounter Details Date Type Department Care Team Description 07/16/2020 Ancillary [facility] Denisha Serna, Pre-e xisting type 1 Procedure Services-Ultrasound AUTOCAD DETAILER, BUSINESS CONSULTANT diabetes mellitus [address] [address] [address], [address] [place], [place] second trimester [place] [phone] Social History Tobacco Use Types Packs/Day Years [...] Progress Notes Denisha Serna APRN, CNP - 07/16/2020 12:45 PM CDT BPP 10/07, SATYA 27. Vertex. MS-BUSINESS CONSULTANT documented in this encounter Plan of Treatment Not on filedocumented as of this encounter Procedures Procedure Name Priority Date/Time Associated Diagnosis Comme nts US OB BPP / SATYA Routine 07/16/2020 1:09 PM Pre-existing type 1 Results for this SINGLE CDT diabetes mellitus procedure are in during in the resu lts second trimester section. documented in this encounter Results US OB BPP / SATYA Single (07/16/2020 1:09 PM CDT) Anatomical Region Laterality Modality Pelvis Ultrasound Specimen (Source) Anatomical Collection Method Collection Time Re ceived Time Location / / Volume Laterality 07/16/2020 12:44 PM CDT Impressions 07/16/2020 1:43 PM CDT TECHNIQUE: Limited ultrasound examination was performed for evaluation of amniotic fIuid index (SATYA) and biophysical profile (BPP). ? FINDINGS: Type of Gestation: Colby Presentation: ??VERTEX Cardiac Rate: ??142 BPM Placental Position: ??POSTERIOR. 4-quadrant SATYA: ??27.0 cm. Q1: ??9.0 cm. Q2: ??5.0 cm. Q3: ??6.0 cm. Q4: ??7.0 cm. Other Findings: None. BPP breathing: ??2 (One episode of fet al breathing for 30 seconds) Gross movements: ??2 (3 body, limb , discrete or separate movements) tone: ??2 (One episode of extensio n/flexion of limbs, head or trunk) Amniotic fluid single deepest pocket: ?? 2 (greater than or equal to 2 cm) TOTAL SCORE: 8 IMPRESSION: 1. Single living intrauterine fetus, pre sently vertex. 2. BPP 8 out of 8. 3. SATYA of 27.0 consistent with known sue yhydramnios. Procedure Note Carlito Ruby MD - 07/16/2020For matting of this note might be different from the original. IMPRESSION TECHNIQUE: Limited ultrasound examinatio n was performed for evaluation of amniotic fIuid index (SATYA) and biophysical profile (BPP). FINDINGS: Type of Gestation: Colby Presentation: VERTEX Cardiac Rate: 142 BPM Placental Position: POSTERIOR. 4-quadrant SATYA: 27.0 cm. Q1: 9.0 cm. Q2: 5.0 cm. Q3: 6.0 cm. Q4: 7.0 cm. Other Findings: None. BPP breathin (One episode of breathing for 30 seconds) Gross movements: 2 (3 body, limb, discrete or separate movements) tone: 2 (One episode of extension/ flexion of limbs, head or trunk) Amniotic fluid single deepest pocket: 2 (greater than or equal to 2 cm) TOTAL SCORE: 8 IMPRESSION: 1. Single living intrauterine fetus, pre sently vertex. 2. BPP 8 out of 8. 3. SATYA of 27.0 consistent with known sue yhydramnios. Denisha Serna AUTOCAD DETAILER, BUSINESS CONSULTANT [facility] documented in this encounter Visit Diagnoses Diagnosis Pre-existing type 1 diabetes mellitus du ring in second trimester documented in this encounter Care Teams Bulker Relationship Specialty Start Date End Date Palmira Lim MD PCP - General 05/08/[address] [place] [address] documented as of this encounter
--- OUTSIDE RECORDS SUMMARY | 2021-12-08 10:25 | XMS_ITS | Encounter Summary ---
:1999 Author Organization [employer] Address [address] [place] [address] Care Team Providers Name Role Phone Palmira Lim MD Primary Care Provider Reason for Referral Procedure/Equipment (Routine) - Closed Specialty Diagnoses / Procedures Referred By Contact Refer red To Contact Diagnoses Supervision of other high risk , antepartum Lactating mother Nabila Stokes MD Procedures Electric breast pump - purchase (E0603) [address] [address] [place] [address] Referral ID Status Reason Start Date Expiration Date Visits Requ ested Visits Authorized [id number] Closed 07/12/2020 10/11/2021 1 1 Reason for Visit Reason Comments Routine Visit 31w 6d Encounter Details Date Type Department Care Team Description 07/12/2020 Routine [facility] Nabila Stokes Services-TRACTOR TRAILER DRIVER MD [facility] Visit (31w 6d) [address] [place] [address] [address], [address] [place] [address] [phone] Social History Tobacco Use Types Packs/Day Years [...] one occasion? No t asked Comment: on oc05/20/2018 Sex Assigned at Date Recorded Female 09/14/2020 7:23 AM CDT documented as of this encounter Last Filed Vital Signs Vital Sign Reading Time Taken Comments Blood Pressure - - Pulse 94 07/12/2020 11:12 AM CDT Temperature - - Respiratory Rate - - Oxygen Saturation - - Inhaled Oxygen Concentration - - Weight 94.5 kg (208 lb 6.4 oz) 07/12/2020 11:12 AM CDT Height - - Body Mass Index 35.77 06/13/2020 1:56 PM CDT documented in this encounter Patient Instructions Patient InstructionsNabila Stokes MD - 07/12/2020 11:45 AM CDT Images from the original note were not included. Group B Strep During : Care Instructions Your Care Instructions Group B strep infection is caused by a type of bacteria. It's a different kind of bacteria than the kind that causes strep throat. You may have this kind of bacteria in your body. Sometimes it may cause an infection, but most of the time it doesn't make you sick or cause symptoms. But if you pass the bacteria to your baby during the , it can cause serious health problems for your baby. If you have this bacteria in your body, you will get antibiotics when you are in labor. Antibiotics help prevent problems for a baby. After , doctors will watch and may test your baby. If your baby tests positive for Group B strep, he or she will get antibiotics. If you plan to breastfeed your baby, don't worry. It will be safe to breastfeed. Follow-up care is a scott part of your treatment and safety. Be sure to make and go to all appointments, and call your doctor if you are having problems. It's also a good idea to know your test results and keep a list of the medicines you take. How can you care for yourself at home? ?? If your doctor has prescribed antibiotics, take them as directed. Do not stop taking them just because you feel better. You need to take the full course of antibiotics. ?? Tell your doctor if you are allergic to any antibiotic. ?? If your water breaks, go to the hospital right away. Your doctor will give you antibiotics to help protect your baby from infection. ?? Tell the doctors and nurses at the hospital that you tested positive for group B strep. When should you call for help? Call your doctor now or seek immediate medical care if: ? You have symptoms of a urinary tract infection. These may include: ? Pain or burning when you urinate. ? A frequent need to urinate without being able to pass much urine. ? Pain in the flank, which is just below the rib cage and above the waist on either side of the back. ? Blood in your urine. ? A fever. ? You think your water has broken. ? You have pain in your belly or pelvis. Watch closely for changes in your health, and be sure to contact your doctor if you have any problems. Where can you learn more? 1. Go to https://www.[employer]/healthlibrary. 2. Enter M001 in the search box. Current as of: December 08, 2019?Content Version: 12.8 ?? [employer]. Care instructions adapted under license by your healthcare professional. If you have questions abouta medical condition or this instruction, always ask your healthcare professional. [employer] disclaims any warranty or liability for your [...] contraceptive pills without a prescription at most drugstores. How can you get control? ?? You [...] can you learn more? 1. Go to https://www.[employer]Pal/healthlibrary. 2. Enter X408 in the search box. Current as of: December 08, 2019?Content Version: 12.8 ?? [employer]. Care instructions adapted under license by your healthcare professional. If you have questions abouta medical condition or this instruction, always ask your healthcare professional. [employer] disclaims any warranty or liability for your use of this information. documented in this encounter Progress Notes Nabila Stokes MD - 07/12/2020 11:45 AM CDT [facility] ?? CC: Follow-up care ?? S: Nabila Serna is feeling well today. No concerns. - Her BGs are been good, FBGs are 50-70s (taking 60 units at night). - Her BP has been normal at home - have been 120-130s/80-90s. Taking once per day. Doesn't write these down. - How many guests? Where does she go to deliver? What about labor positions. If baby's shoulders getstuck, which she was told could happen, what position would be best - all fours? Can we predict if shoulders will get stuck? How to keep breast milk cool at work when she goes back? She denies loss of fluid, changes in vaginal discharge or vaginal bleeding. Reports good movement. She has been having no regular contractions. Denies headache, vision changes, CP, SOB, RUQ or epigastric abdominal pain. ? complications: Patient Active Problem List ?? Diagnosis Date Noted ??? Genital herpes simplex (HRC) 06/22/2020 ??? Supervision of other high risk , antepartum 03/08/2020 ??? History of pulmonary embolism 03/08/2020 ??? Maternal thyroid dysfunction, antepartum 03/08/2020 ??? Constipation 03/08/2020 ??? Pre-existing type 1 diabetes mellitus during in second trimester 03/08/2020 ??? Attention deficit hyperactivity disorder (ADHD) 10/30/2008 ?? O: Vitals: 07/12/20 1112 BP: 132/81 Pulse: 94 Gen: alert, oriented, NAD ?? See OB flowsheet. ? A/P: 19 y.o. at 31w6d by first trimester US presenting for follow-up care. Care: - OB labs reviewed:??A, Rubella immune, Heb B??Ag non reactive? - Genetics:??NT normal - Anatomy ultrasound:??normal level 2 US - Rh positive, Rhogam not indicated - 28 weeks along with??Hgb 10.4, RPR - S/p flu??03/08/20, Tdap??06/22/20 - GBS at 36 weeks - information given - Feed:??breast, Rx provided today - Contraception:??Likely IUD, has used Depo and Nexplanon in the past and didn't like this. Is interested in copper IUD - what is this like? The patient reports her menstrual cycles are usually monthly, lasting 5 days in duration with moderate flow. We did review that the copper IUD can increase the duration, flow as well as pain associated with menstrual cycles. Also discussed risks and benefits of the Mirena IUD. Written information was provided, she will consider. - Continue taking vitamins ?? 1.??Type 1 DM ?- Follows in endocrinology; next visit is next week ?- Baseline HELLP labs??normal, last on 06/22 was WNL ?- Opthalmology appointment; last on 06/07/2020; recommended repeat in 1 year ?- PPx baby Asa through??delivery ?- Primary Flame Brazing Machine Operator:?Miladis Quevedo Flame Brazing Machine Operator, Dr. Maldonado.?-??06/13 hemoglobin A1c 7.2. ??Continue current insulin regimen as advised byendocrine.?- Growth US:?5/10 EFW 99 percentile, AC 99%, SATYA 30cm. Fundal height sizegreater than dates.?MFM ultrasound??scheduled 08/06/2020 ?- testing: BPP??twice weekly??at 30 wk.?BPP today??8 SATYA 22.00 ?- Timing of delivery: Between [id number] for well controlled, [id number] for poorly controlled.? 2.??Hypothyroid. ?--subclinical, on Synthroid per Endo, 06/11 TSH 2.44 ?? 3.??General herpes. ?-Call for outbreaks and will order Valtrex. ??Plan for Valtrex??or acyclovir??36 weeks until delivery. ?? 4. Polyhydramnios 5. Elevated BPs - Discussed concerning for development of gHTN, BP normal today. Did ask the patient to write down BPs at home, so we can review at each visit. ? RTC in 1-2 weeks Nabila Stokes MD P: [phone] 07/12/2020 11:22 AM Dictation Disclaimer: Some notes are completed with voice-recognition dictation software. Typographical errors may result . Please contact me via [employer] staff message if you note any errors requiring clarification. Iveth Dean LPN - 07/12/2020 11:45 AM CDT Patient's BPP 8. SATYA 27.1 cm. Next appt scheduled07/16/20 @ 12:45pm No NST needed today per E. O'Julian, MD. Patient informed and reminded of upcoming appts. Verbalized understanding and all questions answered. documented in this encounter Plan of Treatment Not on filedocumented as of this encounter Visit Diagnoses Diagnosis Supervision of other high risk , antepartum - Primary History of pulmonary embolism Personal history of pulmonary embolism Constipation, unspecified constipation t ype Pre-existing type 1 diabetes mellitus du ring in second trimester Maternal thyroid dysfunction, antepartum (HRC) Thyroid dysfunction, antepartum Hypothyroidism, unspecified type (HRC) Herpes simplex vulvovaginitis (HRC) Attention deficit hyperactivity disorder (ADHD), unspecified ADHD type (HRC) Lactating mother care and examination of lacta ting mother documented in this encounter Care Teams Surveyor Mine Relationship Specialty Start Date End Date Palmira Lim MD PCP - General 05/08/06 [address] [place] [address] documented as of this encounter
--- OUTSIDE RECORDS SUMMARY | 2021-12-08 10:25 | XMS_ITS | Encounter Summary ---
:1999 Author Organization [employer] Address [address] [place] [address] Care Team Providers Name Role Phone Palmira Lim MD Primary Care Provider Reason for Visit Reason Comments Routine Visit 34w6d Encounter Details Date Type Department Care Team Description 08/02/2020 Routine [facility] Shana Hernández MD [place] [address] Ginger Gilbert Visit (34w6d) [address], [address] [place] [phone] Social History Tobacco Use Types Packs/Day Years [...] Sign Reading Time Taken Comments Blood Pressure 140/93 08/02/2020 1:55 PM CDT Pulse 97 08/02/2020 1:55 PM CDT Temperature - - Respiratory Rate - - Oxygen Saturation - - Inhaled Oxygen Concentration - - Weight 99.1 kg (218 lb 6.4 oz) 08/02/2020 1:55 PM CDT Height - - Body Mass Index 38.69 07/18/2020 2:05 PM CDT documented in this encounter Progress Notes Shana Hernández MD - 08/02/2020 1:45 PM CDT [facility] CC: Follow-up care S: Nabila Serna is feeling well today. BG in target range per patient BP 134/82 on last check, has had a [id number] a few days ago, but on recheck was much lower, she isunsure if her home cuff is reading accurately She denies loss of fluid, changes in vaginal discharge or vaginal bleeding. Reports good movement. Some cramping a couple days, nothing regular. A bit of a headache today, but slept in and just woke up. Denies vision changes, chest pain, shortness of breath. complications: - Type 1 diabetes - Hypothyroidism - gHTN - Hx of HSV - Hx THC use, stopped when found out she was - Polyhydramnios O: Filed Vitals: 08/02/20 1355 BP: (!) 140/93 Pulse: 97 Weight: 218 lb 6.4 oz (99.1 kg) Gen: alert, oriented, NAD : Genital warts noted See OB flowsheet. NST today: baseline 130, moderate variability, accels present, no decels 1 ctx in 10 min A/P: 19 y.o. at 34w6d by 7w3d US presenting for follow-up care. Care: - OB labs reviewed: A, Rubella immune, HIV neg, Heb B nonreactive, RPR negative - Genetics: NT normal, 1st tri screen normal - Ultrasound: L2 US normal - Rh positive, Rhogam not indicated - Hgb 10.4, RPR neg - S/p flu 03/08/20, Tdap 06/22/20 - Recommended covid vaccine, may be interested - GBS collected today - Feed: breast, pump rx given - Contraception: IUD Type 1 DM ?- Follows in endocrinology; Khoi Quevedo Cement Mason, Dr. Maldonado.??Last appointment 07/18, next 08/15. Using [...] dates.?MFM ultrasound??scheduled 08/06/2020 ?- testing: BPP??twice weekly.?BPP today??08/07, SATYA 19cm, reactive NST, BPP 10/09 Hypothyroid. ??- on Synthroid per Endo, levothyroxine 50 mcg daily Thu-Thu, and 100 mcg on Thu and Sundays TSH 3.11 ?? General herpes. ?? - Taking valtrex daily Genital warts - discussed removal if desired ?? Polyhydramnios, resolved ?? Gestational Hypertension - Baseline HELLP labs and UPC and repeat 07/19 normal, repeat ordered today - testing twice weekly for DM1 - Recommend delivery at 37 weeks if not sooner for DM1 - call if BP >150/100, take BP at home BID, bring cuff to clinic at next visit to calibrate Follow-up in clinic in 1 week. Shana Hernández MD documented in this encounter Plan of Treatment Not on filedocumented as of this encounter Procedures Procedure Name Priority Date/Time Associated Diagnosis Comme nts GROUP B STREP Routine 08/02/2020 2:23 PM Gestational Results for this SCREEN (OB PTS) CDT hypertension, third proce dure are in trimester the results section. documented in this encounter Results (ABNORMAL) Creatinine [CREAT] (08/02/2020 2:30 PM CDT) Patholo gist Method Time Signature Creatinine 0.50 (L) 0.55 - 08/02/2020 [place] 1.02 mg/dL 5:28 PM CDT LABORATORY GFR, Estimated >60 >60 08/02/2020 [place] mL/min/1.7 5:28 PM CDT LABORATORY 3m2 Specimen Anatomical Collection Method / Collection Time Recei andrade Time (Source) Location / Volume Laterality Blood Venipuncture / 08/02/2020 2:30 08/02/2020 2:30 Unknown PM CDT PM CDT Shana Hernández MD LAB_1 Performing Organization Address [facility] Jemma [place] [facility] [address] [place] [phone] Platelet Count [PLT] (08/02/2020 2:30 PM CDT) P athologist Signature Platelets 227 150 - 450 08/02/2020 [place] x10(9)/L 5:03 PM CDT LABORATORY Specimen Anatomical Collection Method / Collection Time Recei andrade Time (Source) Location / Volume Laterality Blood Venipuncture / 08/02/2020 2:30 08/02/2020 2:30 Unknown PM CDT PM CDT Shana Hernández MD LAB_1 Performing Organization Address [facility] Jemma [place] [facility] [address] [place] [phone] AST (SGOT) [AST] (08/02/2020 2:30 PM CDT) P athologist Signature AST (SGOT) 19 10 - 40 U/L 08/02/2020 [place] 5:28 PM CDT LABORATORY Specimen Anatomical Collection Method / Collection Time Recei andrade Time (Source) Location / Volume Laterality Blood Venipuncture / 08/02/2020 2:30 08/02/2020 2:30 Unknown PM CDT PM CDT Sahna Hernández MD LAB_1 Performing Organization Address City/[facility]/ZIP Code Phon e Number [place] [facility] [address] [place], [place] [phone] Alanine Aminotransferase [ALT] (08/02/2020 2:30 PM CDT) P athologist Signature ALT (SGPT) 13 0 - 55 U/L 08/02/2020 [place] 5:28 PM CDT LABORATORY Specimen Anatomical Collection Method / Collection Time Recei andrade Time (Source) Location / Volume Laterality Blood Venipuncture / 08/02/2020 2:30 08/02/2020 2:30 Unknown PM CDT PM CDT Shana Hernández MD LAB_1 Performing Organization Address [facility] Code Phon e Number [place] [facility] [address] [place] [phone] (ABNORMAL) TP/Crea Ratio, Urine (08/02/2020 2:30 PM CDT) Analysis Performed At Path logist Time Signature Total Protein, 23 (H) 0 - 14 08/02/2020 [facility] Urine, Random mg/dL 7:08 PM CDT LABORATORY Creatinine, 60 >20 mg/dL 08/02/2020 [facility] Urine, Random 7:08 PM CDT LABORATORY TP/Creat 0.38 (H) 0.00 - 08/02/2020 [facility] Ratio, Urine 0.20 7:08 PM CDT LABORATORY Random Specimen Anatomical Collection Method Collection Time Receive d Time (Source) Location / / Volume Laterality Urine Non-blood 08/02/2020 2:30 PM 2:30 Collection / CDT PM CDT Unknown Narrative [facility] - 08/02/2020 7:08 P M CDT Low urine creatinine values coupled with low urine protein values can artifactually increase the urine protein/creatinine re sults. Correlate results of ratio with creatinine results. Shana Hernández MD LAB_1 Performing Organization Address City/State/ZIP Code Phon e Number [facility] [address] [place] [address] Strep Screen Culture (Not Throat) (OB pts) [CSSO] (08/02/2020 2:23 PM CDT) [facility] gist Method Time Signature Group B Strep No Group B 08/04/2020 [facility] Screen Streptococcus 10:08 PM HOSPITAL Isolated CDT Specimen Anatomical Collection Method Collection Time Receive d Time (Source) Location / / Volume Laterality Swab (Source PERINEAL SWAB / Non-blood 08/02/2020 2:23 PM 2020 2:57 Required) Unknown Collection / CDT PM CDT Unknown Shana Hernández MD LAB_1 Performing Organization Address City/State/ZIP Code Phon e Number [address] [address] documented in this encounter Visit Diagnoses Diagnosis Gestational hypertension, third trimeste r - Primary Pre-existing type 1 diabetes mellitus du ring in third trimester Genital warts Condyloma acuminatum Herpes simplex infection of genitourinar y system (HRC) Supervision of other high risk , antepartum Hypothyroidism, unspecified type (HRC) documented in this encounter Care Teams Pipe Line Walker Relationship Specialty Start Date End Date Palmira Lim MD PCP - General 05/08/06 [address] [place] [place] [address] documented as of this encounter
--- OUTSIDE RECORDS SUMMARY | 2021-12-08 10:25 | XMS_ITS | Encounter Summary ---
:1999 Author Organization [employer] Address [address] [place] [address] Care Team Providers Name Role Phone Palmira Lim MD Primary Care Provider Reason for Visit Reason Comments Appointment Questions Encounter Details Date Type Department Care Team Description 08/02/2020 Telephone [facility] Shana Hernández MD Appointment Questions Services-SOFTWARE DEVELOPMENT INTERN [address] [place] [id number] [place] [address] [address] [place] [address] [place], [place] [phone] (Wo rk) [address] [phone] Social History Tobacco Use Types Packs/Day Years [...] documented as of this encounter Nursing Notes Elaina Larkin RN - 08/02/2020 12:48 PM CDT Pt calling because she is going to be late for her US today. Pt is scheduled for a BPP/SATYA today at 12:45 and pt is going to be late for her appt now. States she thinks she may be there around 1 pm. She also has an appt following US at 1:45. Can Slider called US and they will try to see her today Pt informed of this and on her way documented in this encounter Plan of Treatment Not on filedocumented as of this encounter Visit Diagnoses Not on filedocumented in this encounter Care Teams Floor Surfacer Relationship Specialty Start Date End Date Palmira Lim MD PCP - General 05/08/06 [address], [place] [address] documented as of this encounter
--- OUTSIDE RECORDS SUMMARY | 2021-12-08 10:25 | XMS_ITS | Encounter Summary ---
:1999 Author Organization [employer] Address [address] [place] [address] Care Team Providers Name Role Phone Palmira Lim MD Primary Care Provider Reason for Visit Reason Comments Routine Visit Encounter Details Date Type Department Care Team Description 07/26/2020 Routine [facility] Mechelle Meehan, Routine Services-ASBESTOS HANDLER Visit [address] [place] [address] [place], [address] [place] [address] [phone] Social History Tobacco Use Types Packs/Day Years Used Date Smoking Tobacco: Former Cigarettes 0.3 1 Smokeless Tobacco: Never Alcohol Use Standard Drinks/Week Comments Not Currently 0 (1 standard drink = 0.6 oz pure alcoho l) on Alcohol Habits Answer Date Recorded How often [...] Sign Reading Time Taken Comments Blood Pressure 136/81 07/26/2020 1:19 PM CDT Pulse 80 07/26/2020 1:19 PM CDT Temperature - - Respiratory Rate - - Oxygen Saturation - - Inhaled Oxygen Concentration - - Weight 98.9 kg (218 lb) 07/26/2020 1:19 PM CDT Height - - Body Mass Index 38.62 07/18/2020 2:05 PM CDT documented in this encounter Progress Notes Mechelle Meehan MD - 07/26/2020 1:45 PM CDT SUBJECTIVE : Nabila Serna is a 19 y.o. at 33w6d [facility] who presents for routine visit. She denies any LOF, VB, or contractions. She has been feeling movement. Bps at home: 140-150/90-101 FSGs: within acceptable range Current Outpatient Medications Medication Sig Dispense Refill ??? aspirin 81 MG chewable tablet Chew and swallow 1 Tablet by mouth daily. 90 Tablet 2 ??? Continuous Blood Gluc Sensor (DEXCOM G6 SENSOR) MISC Take 1 Each as instructed every 10 days. 9 Each 3 ??? Continuous Blood Gluc Transmit (DEXCOM G6 TRANSMITTER) MISC Take 1 Each as instructed daily. 1 Each 3 ??? docusate sodium (COLACE) 100 MG capsule Take 1 Capsule by mouth two times a day. 30 Capsule 1 ??? Ferrous Sulfate (IRON SLOW RELEASE OR) 1 Tablet daily. ??? insulin aspart (NOVOLOG FLEXPEN) 100 UNIT/ML pen injection 1U for every 30 over 140 on sliding scale 1 U for every 3 g carbs lunch and dinner, 1/4 grams breakfast TDD 60-100 units Indications: Diabetes Mellitus (Patient taking differently: 1U for every 30 over 120 on sliding scale 1 U for every 2 g carbs TDD 60-100 units Indications: Diabetes Mellitus) 45 mL 3 ??? insulin glargine (LANTUS SOLOSTAR) 100 UNIT/ML pen Inject 40-60 Units subcutaneously daily. Indications: Diabetes Mellitus (Patient taking differently: Inject 60 Units subcutaneously daily. Indications: Diabetes Mellitus) 30 mL 3 ??? insulin pen needle 31G X 5 MM Inject 1 Each subcutaneously five times a day. 500 Each 2 ??? levothyroxine (SYNTHROID) 50 MCG tablet Take 1 tab daily Mon-Fri, and 2 tabs daily Thu and Sundays. 114 Tablet 3 ??? vitamin-ferrous fumarate-folic acid (PRENATALPLUS) 27-1 MG tablet Take 1 Tablet by mouth daily. ??? valACYclovir (VALTREX) 500 MG tablet Take 1 Tablet by mouth two times a day for 45 days. 90 Tablet 0 No current facility-administered medications for this visit. Allergies Allergen Reactions ??? Shellfish-Derived Products Anaphylaxis Lip swelling ??? Acetaminophen Other, see comments Patient cannot take acetaminophen due to implanted sensor related to the insulin pump. Is not supposed to take while using insulin pump REVIEW OF SYSTEMS : All other systems are negative. OBJECTIVE : O: See ob flowsheet for BP, FH, weight, FHR General appearance: healthy, alert, in no distress Abdomen: gravid, soft, non-tender without masses or organomegaly BPP: 10/07, cephalic, SATYA 24.6cm ASSESSMENT/PLAN: 19 y.o. at 33w6d wga Care: - OB labs reviewed: A, Rubella immune, HIV neg, Heb B nonreactive, RPR negative - Genetics: NT normal - Ultrasound: L2 US normal - Rh positive, Rhogam not indicated - Hgb 10.4, RPR neg - S/p flu 03/08/20, Tdap 06/22/20 - Recommended covid vaccine, may be interested - GBS to be collected next visit - Feed: breast, pump rx given - Contraception: IUD Type 1 DM, suboptimal control (a1c 6.4% on 07/18) Polyhydramnios Suspected Macrosomia ?-??Followed by [employer] Mechanic, Dr. Maldonado. Using Lantus 60U qHS and insulin Novolog 1 unit per 2 gm CHO plus correction 1 per 30 above 120. ?- Baseline HELLP labs??normal. Opthalmology appointment up to date (next in 05/2021).? - PPx baby Asa through??delivery ?- Growth US:?07/09??EFW 2528g 99%, AC 99%, SATYA??30cm.?- testing: BPP??twice weekly.? - Reviewed at length importance of glucose control, as well as risk of stillbirth, shoulder dystocia (with possible prison sequelae), and need for PCS. - Discussed possible need for IOL at 36+0 to 38+6 wga. Will f/u on MFM recommendations (has appt on08/06) ?? Gestational Hypertension - HELLP labs and UPC normal on 07/18 - call if BP >150/100, take BP at home BID - testing and IOL per DM1 Hypothyroid. ??- on??Synthroid??per Endo, levothyroxine 50 mcg daily Thu-Thu, and 100 mcg on Thu and Sundays. ??07/18 TSH 3.11 ?? Genital herpes. ?? - ??Cont daily Valtrex ppx ?? documented in this encounter Plan of Treatment Not on filedocumented as of this encounter Visit Diagnoses Diagnosis Supervision of other high risk , antepartum - Primary Pre-existing type 1 diabetes mellitus du ring in third trimester Maternal thyroid dysfunction, antepartum (HRC) Thyroid dysfunction, antepartum Hypothyroidism, unspecified type (HRC) Herpes simplex vulvovaginitis (HRC) Gestational hypertension, third trimeste r Uterine size-date discrepancy in third t rimester Uterine size date discrepancy, antepartu m condition or complication Polyhydramnios in third trimester compli cation, single or unspecified fetus documented in this encounter Care Teams Wood Sash And Frame Carpenter Relationship Specialty Start Date End Date Palmira Lim MD PCP - General 05/08/[address] [place], [place] [address], [place] [address] documented as of this encounter
--- OUTSIDE RECORDS SUMMARY | 2021-12-08 10:25 | XMS_ITS | Encounter Summary ---
:1999 Author Organization [employer] Address [address] [place] [address] Care Team Providers Name Role Phone Palmira Lim MD Primary Care Provider Reason for Visit Procedure/Equipment (Routine) - Canceled Specialty Diagnoses / Procedures Referred By Contact Refer red To Contact Diagnoses Pre-existing type 1 diabetes mellitus during in second trimester Denisha Serna, LABORER WHARF, PIPE TESTER Procedures US OB BPP / SATYA Single [address] [place] [address] Referral ID Status Reason Start Date Expiration Date Visits V isits Requested Authorized [id number] Canceled 06/11/2020 09/10/2021 18 18 Encounter Details Date Type Department Care Team Description 08/09/2020 [facility]illary [facility] Denisha Serna, Pre-e xisting type 1 Procedure Services-Ultrasound LABORER WHARF, PIPE TESTER diabetes mellitus [address] [address], [address] [place], [place] second trimester [place] [address] [phone] Social History Tobacco Use Types Packs/Day Years [...] Progress Notes Denisha Serna APRN, CNP - 08/09/2020 12:45 PM CDT BPP 8/8, SATYA 23, vertex. MS-PIPE TESTER documented in this encounter Plan of Treatment Not on filedocumented as of this encounter Procedures Procedure Name Priority Date/Time Associated Diagnosis Comme nts US OB BPP / SATYA Routine 08/09/2020 1:01 PM Pre-existing type 1 Results for this SINGLE CDT diabetes mellitus procedure are in during in the resu lts second trimester section. documented in this encounter Results US OB BPP / SATYA Single (08/09/2020 1:01 PM CDT) Anatomical Region Laterality Modality Pelvis Ultrasound Study GA Study Date Study TATE Working TATE (Source) W eight (Method) Result Name Value Comments FHR 142 bpm BPP 8 SATYA Q1 7.44 cm SATYA Q2 5.11 cm SATYA Q3 4.64 cm SATYA Q4 6.38 cm SATYA 23.57 cm Specimen (Source) Anatomical Collection Method Collection Time Re ceived Time Location / / Volume Laterality 08/09/2020 12:46 PM CDT Impressions 08/09/2020 1:49 PM CDT TECHNIQUE: Limited ultrasound examination was performed for evaluation of amniotic fIuid index (SATYA) and biophysical profile (BPP). ? FINDINGS: Type of Gestation: [place] Presentation: ??vertex Cardiac Rate: ??142 BPM Placental Position: ??posterior. 4-quadrant SATYA: ??23.6 cm. Q1: ??7.4 cm. Q2: ??5.1 cm. Q3: ??4.6 cm. Q4: ??6.4 cm. Other Findings: None. BPP breathing: ??2 [...] NA SATYA results called: NA Procedure Note Kenneth Dorado MD - 08/09/2020Forma tting of this note might be different from the original. IMPRESSION TECHNIQUE: Limited ultrasound examinatio n was performed for evaluation of amniotic fIuid index (SATYA) and biophysical profile (BPP). FINDINGS: Type of Gestation: [place] Presentation: vertex Cardiac Rate: 142 BPM Placental Position: posterior. 4-quadrant SATYA: 23.6 cm. Q1: 7.4 cm. Q2: 5.1 cm. Q3: 4.6 cm. Q4: 6.4 cm. Other Findings: None. BPP breathin (One episode of breathing for 30 seconds) Gross movements: 2 (3 body, limb, discrete or separate movements) tone: 2 (One episode of extension/ flexion of limbs, head or trunk) Amniotic fluid single deepest pocket: 2 (greater than or equal to 2 cm) TOTAL SCORE: 8 BPP results called: NA SATYA results called: NA Denisha Serna LABORER WHARF, PIPE TESTER [facility] documented in this encounter Visit Diagnoses Diagnosis Pre-existing type 1 diabetes mellitus du ring in second trimester documented in this encounter Care Teams Senior Technical Support Engineer Relationship Specialty Start Date End Date Palmira Lim MD PCP - General 05/08/[address] [place] [address] documented as of this encounter
--- OUTSIDE RECORDS SUMMARY | 2021-12-08 10:25 | XMS_ITS | Encounter Summary ---
:2000 Author Organization [employer] Address [address] [place] [address] Care Team Providers Name Role Phone Palmira Lim MD Primary Care Provider Reason for Visit Procedure/Equipment (Routine) - Incomplete Specialty Diagnoses / Procedures Referred By Contact Refer red To Contact Diagnoses Pre-existing type 1 diabetes mellitus during in second trimester Anita Denis MD Procedures MFM US OB US F/U MFM US BPP/NST, SATYA, OB US F/U MFM US OB US F/U 3931 [place], [place] [address] Referral ID Status Reason Start Date Expiration Date Visits V isits Requested Authorized [id number] Incomplete 06/11/2020 09/10/2021 10 10 Encounter Details Date Type Department Care Team Description 07/09/2020 [facility] Anita Denis, Pre-exi sting type 1 Procedure 3931 Maternal MD diabetes mellitus Medicine 3931 [facility] during in 3931 [facility] second trimester [facility] [address] [place] [address] [phone] Social History Tobacco Use Types Packs/Day Years [...] Name Priority Date/Time Associated Diagnosis Comme nts [facility] OB US F/U Routine 07/09/2020 11:06 AM Pre-existing type 1 Results for this CDT diabetes mellitus procedure are in during in the resu lts second trimester section. documented in this encounter Results [facility] US OB US F/U (07/09/2020 11:06 AM CDT) Anatomical Region Laterality Modality Pelvis Ultrasound Study GA Study Date Study TATE Working TATE (Source) W eight (Method) 33w3d 07/09/2020 08/24/2020 09/07/2020 (Final TATE by 252 8 g (Alysia 1984 (BPD, MD/CNJossy) HC, AC, FL) )25 23 g (Hadlock 1985 ( AC, FL) )2549 g (Hadloc k 1984 (BPD, AC, FL) )2497 g (Alysia 1984 (HC, AC, F L) )3040 g (Stephanlock 1983 ( AC) )2802 g (Hadlock 1983 ( HC, AC) )2800 g (Shepar d 1981 (BPD, AC) ) Result Name Value Comments GA by US Calc 234 days 234 BPD 8.74 cm 247 HC 31.45 cm 247 AC 32.59 cm 256 FL 5.94 cm 217 HL 5.36 cm FL/BPD 67.96 % FL/AC 18.23 % HC/AC 0.97 CI 78.88 % SATYA Q1 7.28 cm SATYA Q2 10.57 cm SATYA Q3 7.24 cm SATYA Q4 6.15 cm SATYA 31.24 cm FHR 143 bpm BPP UAR - PSV UAR - S/D Ratio UAR - RI UAR - PI MCA - PSV 33.49 cm/s MCA - S/D Ratio 5.78 MCA - PI 2.07 Max Vertical Pocket 10 cm Specimen (Source) Anatomical Location Collection Method / Collectio n Time Received Time / Laterality Volume Impressions 07/09/2020 12:12 PM CDT S: 1) Intrauterine at 31 weeks 3 days gestational age 2) No anomalies noted 3) Macrosomia is suspected with estimate d weight at 99%tile 4) The amniotic fluid volume is increase d, 31cm 5) No evidence of placenta previa 6) BPP 8/8 RECOMMENDATIONS: -Please see separate consult note for ad ditional counseling -Continue twice weekly testing -Repeat growth with MFM in 4 weeks Narrative 07/09/2020 12:12 PM CDT Patient Name: Nabila Serna ??Attending: Kamila Delgadillo MD Patient ??Ict Customer Support Officer: April Nagy RDMS , Age: 709/02/2000, 19 y.o. ??GA Prior t o Exam: 31w3d LMP: Patient's last menstrual period was 11/27/2019 (exact date). ??GA by Today's US: 33w3d Pregnancies: ??GA TATE: 31w3d Final TATE by MD/DYLAN Pre- BMI: ??27.79 ??TATE: 09/07/2020 Hx/Indications: Type 1 IDDM Hypothyroid Neg First Tri Screen Hx PE/DKA Hospitalization On Lovenox On baby asa Evaluation Gestation Type johnson Cardiac Activity present Motion normal Presentation cephalic Amniotic Fluid polyhydramnios Placenta Location posterior Placenta Appearance See Comments Prominent placental odom seen again, mely suring 6.1 x 2.0 x 1.8cm. BPP Breathing 2 Tone 2 Movement 2 Amniotic Fluid 2 Total Score 8 Measurement Value Rank GA BPD 8.74 cm > 99% 35w2d HC 31.45 cm 96% 35w2d AC 32.59 cm > 99% 36w4d FL 5.94 cm 24% 31w0d HL 5.36 cm 5 - 50% ?? FL/BPD 67.96 % < 71% ?? FL/AC 18.23 % < 20% ?? HC/AC 0.97 5 - 50% ?? CI 78.88 % 70 - 86% ?? SATYA Q1 7.28 cm ?? SATYA Q2 10.57 cm ?? SATYA Q3 7.24 cm ?? SATYA Q4 6.15 cm ?? SATYA 31.24 cm > 95% ?? FHR 143 bpm ?? Max Vertical Pocket 10 cm ?? Weight: 2,528 g (5 lb 9.2 oz), > 9 9% Middle Cerebral Artery MCA - S/D Ratio MCA - PI MCA - PSV 5.78 2.07 33.49 cm/s, 0.77 MoM ? Interpretation of Doppler color flow paige ocity mapping of the Middle Cerebral Artery demonstrates: The peak MCA velocity is less than 1.5 M OM and not suggestive of anemia Head ??Abdomen Cranium appears normal ??Stomach appears normal Midline Falx appears normal ??Heart Lateral Ventricle appears normal ??Heart Rhythm regular Cavum Septi Pellucidi inadequately visua lized ?? Situs normal ?? 4 Chamber View appears normal ?? LVOT/AO inadequately visualized ?? RVOT/PA inadequately visualized ?? Urinary Tract ?? Right Kidney appears normal ?? Left Kidney appears normal ?? Bladder appears normal Maternal Evaluation Cervix Inadequately visualized Uterus No rmal Cervical Length ? Approach N/A Right Ovary Inadequately Vi sualized With Fundal Pressure (cm) N/A ?? Left Ov jean-paul Inadequately Visualized Funneling N/A Right Adnexa Normal Cul-de-sac No fluid seen Left Adnexa Nor mal ? Impression Anita Denis MD RAD LISA documented in this encounter Visit Diagnoses Diagnosis Pre-existing type 1 diabetes mellitus du ring in second trimester documented in this encounter Care Teams Commercial Lease Administrator Relationship Specialty Start Date End Date Palmira Lim MD PCP - General 05/08/[address] [place] [address] documented as of this encounter
--- OUTSIDE RECORDS SUMMARY | 2021-12-08 10:25 | XMS_ITS | Encounter Summary ---
:2000 Author Organization [employer] Address [address] [place] [address] Care Team Providers Name Role Phone Palmira Lim MD Primary Care Provider Reason for Visit Reason Comments Non-stress Test No nst needed Encounter Details Date Type Department Care Team Description 07/23/2020 Routine [facility] Lyly Albarran, Non-stress Test (No Services-MORTGAGE SALES MANAGER nst needed ) [address] [place], [address] [place] [address] [phone] Social History Tobacco Use Types Packs/Day Years [...] documented as of this encounter Progress Notes Brigette Connor LPN - 07/23/2020 1:30 PM CDT Patient's BPP 10/07. SATYA 29.3cmcm. Next appt scheduled 07/26. No NST needed today per Tyrone Albarran MD.Patient informed and reminded of upcoming appts. Verbalized understanding and all questions answered. documented in this encounter Plan of Treatment Not on filedocumented as of this encounter Visit Diagnoses Diagnosis Pre-existing type 1 diabetes mellitus du ring in second trimester - Primary documented in this encounter Care Teams Shopping Inspector Relationship Specialty Start Date End Date Palmira Lim MD PCP - General 05/08/[address] [place] [address] documented as of this encounter
--- OUTSIDE RECORDS SUMMARY | 2021-12-08 10:25 | XMS_ITS | Encounter Summary ---
:2000 Author Organization [employer] Address [address] [place] [address] Care Team Providers Name Role Phone Palmira Lim MD Primary Care Provider Reason for Visit Reason Comments NST,(NON STRESS TEST) None needed Encounter Details Date Type Department Care Team Description 07/16/2020 Routine [facility] Pratibha Patel NST,(NON STRESS Services-LICENSED PROSTHETIST/ORTHOTIST M, DO TEST) (None needed ) [address] [place], [address] [place] [address] [phone] Social History Tobacco Use Types Packs/Day Years [...] documented as of this encounter Progress Notes Muimba, Ndende M, SETTLEMENT AGENT - 07/16/2020 1:30 PM CDT Patient's BPP /. SATYA 27.0cm. Next appt scheduled 07/19/2020. No NST needed today per Karmen Patel MD. Patient informed and reminded of upcoming appts. Verbalized understanding and all questions answered. documented in this encounter Plan of Treatment Not on filedocumented as of this encounter Visit Diagnoses Diagnosis Supervision of other high risk , antepartum - Primary documented in this encounter Care Teams Automotive Engineer Relationship Specialty Start Date End Date Palmira Lim MD PCP - General 05/08/[address] [place] [address] documented as of this encounter
--- OUTSIDE RECORDS SUMMARY | 2021-12-08 10:25 | XMS_ITS | Encounter Summary ---
:2000 Author Organization [employer] Address [address] [place] [address] Care Team Providers Name Role Phone Palmira Lim MD Primary Care Provider Reason for Visit Procedure/Equipment (Routine) - Canceled Specialty Diagnoses / Procedures Referred By Contact Refer red To Contact Diagnoses Pre-existing type 1 diabetes mellitus during in second trimester Denisha Serna, WELL CONTROL INSTRUCTOR, HOOP MACHINE OPERATOR Procedures US OB BPP / SATYA Single [id number] [place] [phone] Referral ID Status Reason Start Date Expiration Date Visits V isits Requested Authorized [id number] Canceled 06/11/2020 09/10/2021 18 18 Encounter Details Date Type Department Care Team Description 07/26/2020 Ancillary [facility] Denisha Serna, Pre-e xisting type 1 Procedure Services-Ultrasound WELL CONTROL INSTRUCTOR, HOOP MACHINE OPERATOR diabetes mellitus [address] [place] [address] [address], [address] [place], [place] second trimester [place] [address] [phone] Social History Tobacco Use Types Packs/Day Years [...] Progress Notes Denisha Serna APRN, CNP - 07/26/2020 12:45 PM CDT BPP 10/07, SATYA 24 cm. Vertex. MS-HOOP MACHINE OPERATOR documented in this encounter Plan of Treatment Not on filedocumented as of this encounter Procedures Procedure Name Priority Date/Time Associated Diagnosis Comme nts US OB BPP / SATYA Routine 07/26/2020 1:14 PM Pre-existing type 1 Results for this SINGLE CDT diabetes mellitus procedure are in during in the resu lts second trimester section. documented in this encounter Results US OB BPP / SATYA Single (07/26/2020 1:14 PM CDT) Anatomical Region Laterality Modality Pelvis Ultrasound Specimen (Source) Anatomical Collection Method Collection Time Re ceived Time Location / / Volume Laterality 07/26/2020 12:45 PM CDT Impressions 07/26/2020 1:54 PM CDT TECHNIQUE: Limited ultrasound examination was performed for evaluation of amniotic fIuid index (SATYA) and biophysical profile (BPP). ? FINDINGS: Type of Gestation: Colby Presentation: ??CEPHALIC Cardiac Rate: ??147 BPM Placental Position: ??POSTERIOR. 4-quadrant SATYA: ??24.6 cm. Q1: ??3.4 cm. Q2: ??8.1 cm. Q3: ??7.9 cm. Q4: ??5.2 cm. Other Findings: None. BPP breathing: ??2 [...] NA SATYA results called: NA Procedure Note Ángel Quintero MD - 07/26/2020Fo rmatting of this note might be different from the original. IMPRESSION TECHNIQUE: Limited ultrasound examinatio n was performed for evaluation of amniotic fIuid index (SATYA) and biophysical profile (BPP). FINDINGS: Type of Gestation: Colby Presentation: CEPHALIC Cardiac Rate: 147 BPM Placental Position: POSTERIOR. 4-quadrant SATYA: 24.6 cm. Q1: 3.4 cm. Q2: 8.1 cm. Q3: 7.9 cm. Q4: 5.2 cm. Other Findings: None. BPP breathin (One episode of breathing for 30 seconds) Gross movements: 2 (3 body, limb, discrete or separate movements) tone: 2 (One episode of extension/ flexion of limbs, head or trunk) Amniotic fluid single deepest pocket: 2 (greater than or equal to 2 cm) TOTAL SCORE: 8 BPP results called: NA SATYA results called: NA Denisha Serna APRN, HOOP MACHINE OPERATOR [facility] documented in this encounter Visit Diagnoses Diagnosis Pre-existing type 1 diabetes mellitus du ring in second trimester documented in this encounter Care Teams Farmworkers Relationship Specialty Start Date End Date Palmira Lim MD PCP - General 05/08/[address] [place] [address] documented as of this encounter
--- OUTSIDE RECORDS SUMMARY | 2021-12-08 10:25 | XMS_ITS | Encounter Summary ---
:2000 Author Organization [employer] Address [address] [place] [address] Care Team Providers Name Role Phone Palmira Lim MD Primary Care Provider Encounter Details Date Type Department Care Team Description 07/09/2020 Notes/Orders [facility] 3931 Kamila Delgadillo, Insulin controlled Maternal gestational diabetes Medicine [address] mellitus (GDM) in [facility]. third trimester [place]. [place], [place] (Primary Dx) [place] [address] [phone] Social History Tobacco Use Types Packs/Day Years [...] as of this encounter Visit Diagnoses Diagnosis Insulin controlled gestational diabetes mellitus (GDM) in third trimester - Primary documented in this encounter Care Teams Middle School Music Teacher Relationship Specialty Start Date End Date Palmira Lim MD PCP - General 05/08/[address] [place] [address] documented as of this encounter
--- OUTSIDE RECORDS SUMMARY | 2021-12-08 10:25 | XMS_ITS | Encounter Summary ---
:2000 Author Organization [employer] Address [address] [place] [address] Care Team Providers Name Role Phone Palmira Lim MD Primary Care Provider Reason for Visit Procedure/Equipment (Routine) - Canceled Specialty Diagnoses / Procedures Referred By Contact Refer red To Contact Diagnoses Pre-existing type 1 diabetes mellitus during in second trimester Denisha Serna, REAL ESTATE AGENCY PRINCIPAL, BEE WORKER Procedures US OB BPP / SATYA Single [id number] [place] [address] Referral ID Status Reason Start Date Expiration Date Visits V isits Requested Authorized [id number] Canceled 06/11/2020 09/10/2021 18 18 Encounter Details Date Type Department Care Team Description 07/12/2020 Ancillary [facility] Denisha Serna, Pre-e xisting type 1 Procedure Services-Ultrasound REAL ESTATE AGENCY PRINCIPAL, BEE WORKER diabetes mellitus [address] [place] [address] [address] during in [address], [address] [place], [place] second trimester [place] [address] [phone] Social History Tobacco Use Types Packs/Day Years [...] as of this encounter Progress Notes Denisha Serna, SANDOVAL, MITZI - 07/12/2020 10:45 AM CDT BPP 10/07, SATYA 27 cm-polyhydramnios. Vertex. MS-BEE WORKER documented in this encounter Plan of Treatment Not on filedocumented as of this encounter Procedures Procedure Name Priority Date/Time Associated Diagnosis Comme nts US OB BPP / SATYA Routine 07/12/2020 11:03 AM Pre-existing type 1 Results for this SINGLE CDT diabetes mellitus procedure are in during in the resu lts second trimester section. documented in this encounter Results US OB BPP / SATYA Single (07/12/2020 11:03 AM CDT) Anatomical Region Laterality Modality Pelvis Ultrasound Specimen (Source) Anatomical Collection Method Collection Time Re ceived Time Location / / Volume Laterality 07/12/2020 10:42 AM CDT Impressions 07/12/2020 11:53 AM CDT TECHNIQUE: Limited ultrasound examination was performed for evaluation of amniotic fIuid index (SATYA) and biophysical profile (BPP). ? FINDINGS: Type of Gestation: Colby Presentation: ??Vertex Cardiac Rate: ??137 BPM Placental Position: ??Posterior . 4-quadrant SATYA: ??27.1 cm. Q1: ??3.4 cm. Q2: ??5.0 cm. Q3: ??9.1 cm. Q4: ??9.7 cm. Other Findings: None. BPP breathing: ??2 (One episode of fet al breathing for 30 seconds) Gross movements: ??2 (3 body, limb , discrete or separate movements) tone: ??2 (One episode of extensio n/flexion of limbs, head or trunk) Amniotic fluid single deepest pocket: ?? 2 (greater than or equal to 2 cm) TOTAL SCORE: 8 BPP results called: NA SATYA results called: Known polyhydramnios Procedure Note Mendoza Marion MD - 07/12/2020 IMPRESSION TECHNIQUE: Limited ultrasound examinatio n was performed for evaluation of amniotic fIuid index (SATYA) and biophysical profile (BPP). FINDINGS: Type of Gestation: Colby Presentation: Vertex Cardiac Rate: 137 BPM Placental Position: Posterior . 4-quadrant SATYA: 27.1 cm. Q1: 3.4 cm. Q2: 5.0 cm. Q3: 9.1 cm. Q4: 9.7 cm. Other Findings: None. BPP breathin (One episode of breathing for 30 seconds) Gross movements: 2 (3 body, limb, discrete or separate movements) tone: 2 (One episode of extension/ flexion of limbs, head or trunk) Amniotic fluid single deepest pocket: 2 (greater than or equal to 2 cm) TOTAL SCORE: 8 BPP results called: NA SATYA results called: Known polyhydramnios Denisha Serna APRN, BEE WORKER [facility] documented in this encounter Visit Diagnoses Diagnosis Pre-existing type 1 diabetes mellitus du ring in second trimester documented in this encounter Care Teams Boiler Maker Relationship Specialty Start Date End Date Palmira Lim MD PCP - General 05/08/06 [address] [place] [address] documented as of this encounter
--- OUTSIDE RECORDS SUMMARY | 2021-12-08 10:25 | XMS_ITS | Encounter Summary ---
:2000 Author Organization [employer] Address [address] [place] [address] Care Team Providers Name Role Phone Palmira Lim MD Primary Care Provider Encounter Details Date Type Department Care Team Description 08/02/2020 Lab Visit [facility] Gestation al hypertension, Services-[facility] third trimester [address] [facility], [facility] [address] [place] [address] Social History Tobacco Use [...] Progress Notes Shana Hernández MD - 08/02/2020 2:30 PM CDT Reece Dahl, Your recent lab results show you do meet criteria for pre-eclampsia without severe features now based on the protein in your urine. Remainder of your labs checking your kidney and liver function are normal. We will continue with your current plan of monitoring and delivery at 37 weeks unless you develop severe features such as blood pressures greater than 160/100, worsening kidney, liver, or plateletfunction or the [facility] doctor recommends earlier delivery. Please contact our clinic at [phone] orabimael Sullivan if you have any questions. Thanks, Shana Hernández MD documented in this encounter Plan of Treatment Not on filedocumented as of this encounter Procedures Procedure Name Priority Date/Time Associated Diagnosis Comme nts CREATININE / GFR Routine 08/02/2020 2:30 PM Gestational Resul ts for this CDT hypertension, third procedur e are in trimester the results section. PLATELETS Routine 08/02/2020 2:30 PM Gestational Results f or this CDT hypertension, third procedur e are in trimester the results section. TP/CREA RATIO, URINE Routine 08/02/2020 2:30 PM Gestational R esults for this CDT hypertension, third procedur e are in trimester the results section. ALT (SGPT) Routine 08/02/2020 2:30 PM Gestational Results f or this CDT hypertension, third procedur e are in trimester the results section. AST Routine 08/02/2020 2:30 PM Gestational Results f or this CDT hypertension, third procedur e are in trimester the results section. documented in this encounter Results (ABNORMAL) Creatinine [CREAT] (08/02/2020 2:30 PM CDT) [facility] Method Time Signature Creatinine 0.50 (L) 0.55 - 08/02/2020 [facility] 1.02 mg/dL 5:28 PM CDT LABORATORY GFR, Estimated >60 >60 08/02/2020 [facility] mL/min/1.7 5:28 PM CDT LABORATORY 3m2 Specimen Anatomical Collection Method / Collection Time Recei andrade Time (Source) Location / Volume Laterality Blood Venipuncture / 08/02/2020 2:30 08/02/2020 2:30 Unknown PM CDT PM CDT Shana Hernández MD LAB_1 Performing Organization Address City/State/ZIP Code Phon e Number [facility] [address] [place], [place] [phone] Platelet Count [PLT] (08/02/2020 2:30 PM CDT) athologist Signature Platelets 227 150 - 450 08/02/2020 [facility] x10(9)/L 5:03 PM CDT LABORATORY Specimen Anatomical Collection Method / Collection Time Recei andrade Time (Source) Location / Volume Laterality Blood Venipuncture / 08/02/2020 2:30 08/02/2020 2:30 Unknown PM CDT PM CDT Shana Hernández MD LAB_1 Performing Organization Address [facility]/ZIP Code Phon e Number [facility] [address] [place] [phone] AST (SGOT) [AST] (08/02/2020 2:30 PM CDT) athologist Signature AST (SGOT) 19 10 - 40 U/L 08/02/2020 [facility] 5:28 PM CDT LABORATORY Specimen Anatomical Collection Method / Collection Time Recei andrade Time (Source) Location / Volume Laterality Blood Venipuncture / 08/02/2020 2:30 08/02/2020 2:30 Unknown PM CDT PM CDT Shana Hernández MD LAB_1 Performing Organization Address City/[facility]/ZIP Code Phon e Number [facility] [id number] [place] [phone] Alanine Aminotransferase [ALT] (08/02/2020 2:30 PM CDT) athologist Signature ALT (SGPT) 13 0 - 55 U/L 08/02/2020 [facility] 5:28 PM CDT LABORATORY Specimen Anatomical Collection Method / Collection Time Recei andrade Time (Source) Location / Volume Laterality Blood Venipuncture / 08/02/2020 2:30 08/02/2020 2:30 Unknown PM CDT PM CDT Shana Hernández MD LAB_1 Performing Organization Address City/[facility]/ZIP Code Phon e Number [facility] [address] [place] [phone] (ABNORMAL) TP/Crea Ratio, Urine (08/02/2020 2:30 PM CDT) Analysis Performed At Patho logist Time Signature Total Protein, 23 (H) 0 - 14 08/02/2020 [facility] Urine, Random mg/dL 7:08 PM CDT LABORATORY Creatinine, 60 >20 mg/dL 08/02/2020 [facility] Urine, Random 7:08 PM CDT LABORATORY TP/Creat 0.38 (H) 0.00 - 08/02/2020 [facility] Ratio, Urine 0.20 7:08 PM CDT LABORATORY Random Specimen Anatomical Collection Method Collection Time Receive d Time (Source) Location / / Volume Laterality Urine Non-blood 08/02/2020 2:30 PM 2:30 Collection / CDT PM CDT Unknown Narrative [facility] - 08/02/2020 7:08 P M CDT Low urine creatinine values coupled with low urine protein values can artifactually increase the urine protein/creatinine re sults. Correlate results of ratio with creatinine results. Shana Hernández MD LAB_1 Performing Organization Address City/State/ZIP Code Phon e Number [facility] [address] [place] [address] documented in this encounter Visit Diagnoses Diagnosis Gestational hypertension, third trimeste r documented in this encounter Care Teams White Lead Grinder Relationship Specialty Start Date End Date Palmira Lim MD PCP - General 05/08/[address] [place], [place] [address] documented as of this encounter
--- OUTSIDE RECORDS SUMMARY | 2021-12-08 10:25 | XMS_ITS | Encounter Summary ---
:1999 Author Organization [facility] Address [address] [place] [address] Care Team Providers Name Role Phone Palmira Lim MD Primary Care Provider Reason for Visit Reason Comments Diabetes Encounter Details Date Type Department Care Team Description 07/18/2020 Office Visit Moisés Fausto Maldonado Pre-existin g type 1 diabetes mellitus during in second trimester (Primary Dx); Endocrinology M, KAIN Subclinical hypothyroidism [address] [address] [address] [phone] [place] [address] Social History Tobacco Use Types [...] Sign Reading Time Taken Comments Blood Pressure 134/78 07/18/2020 2:10 PM CDT Pulse 84 07/18/2020 2:10 PM CDT Temperature - - Respiratory Rate - - Oxygen Saturation - - Inhaled Oxygen Concentration - - Weight 95 kg (209 lb 6.4 oz) 07/18/2020 2:05 PM CDT Height 160 cm (5' 3) 07/18/2020 2:05 PM CDT Body Mass Index 37.09 07/18/2020 2:05 PM CDT documented in this encounter Progress Notes Fausto Maldonado MBBS - 07/18/2020 2:00 PM CDT Addended by: FAUSTO MALDONADO on: 07/18/2020 02:22 PM Modules accepted: Orders Shaji Staton - 07/18/2020 2:00 PM CDT Addended by: SHAJI STATON on: 07/18/2020 03:02 PM Modules accepted: Orders Fausto Maldonado MBBS - 07/18/2020 2:00 PM CDT [facility] Department of Endocrinology, Diabetes and Metabolism Clinic Note Name: Nabila Serna Cc: Follow up for T1DM. 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 female works in a [employer]. #1 T1DM: Diagnosed in 2016, no known complications, she has history of non compliance, had a DKA in 03/2018. She is currently using insulin Lantus 60 units QHS and insulin Novolog 1 unit per 2 gm CHO plus correction 1 per 30 above 120. She is 33 weeks with her first child, is progressing well, US from 07/09/2020 , weight was >99%. She uses Dexcom, CGM data for 2 weeks were reviewed, average glucose was 119, SD 54, GMI 6.2. 1% >250, 18%181-250, 54% in range (70-180), 18 %<70 and 9%<54. She is taking levothyroxine 50 mcg daily Thu-Thu, and 100 mcg on Thu and Sundays for subclinical hypothyroidism. No history of hypoglycemia unawareness. No peripheral neuropathy symptoms, Creatinine from 01/2020 was normal and had normal urine microalbumin, BP today was 134/78. Physical Examination: Vitals: BP 134/78 (BP Location: Right Arm, BP Cuff Size: Regular) Pulse 84 Ht 5' 3 (1.6 m) Wt209 lb 6.4 oz (95 kg) LMP 11/27/2019 (Exact Date) BMI 37.09 kg/m?? General: The patient is alert and oriented, no acute distress. Labs: Reviewed and summarized in the HPI. Assessment and Plan: Nabila Serna is a 19 y.o. female: #1 T1DM: Fairly controlled, no triopathy, complicated by . Counseled the patient about the importance of DM control and grave consequences of uncontrolled DM. Reviewed glycemic targets in . Continue lantus 60 units QHS. Continue Novolog 1 per 2 , using 1 per 30 above 120 for correction, she needs to do that before eachmeal. Limit carbs to less than 40 gm per meal. Use DEXCOM. RTC in 4 weeks. Repeat BMP, A1C today. #2 Hypothyroidism: Continue levothyroxine 50 mcg daily Thu-Thu, and 100 mcg Thu and Sundays, repeat TSH today. Repeat TSH. KAIN Bruce Personal Financial Counselor Shaji Staton - 07/18/2020 2:00 PM CDT Images from the original note were not included. documented in this encounter Plan of Treatment Not on filedocumented as of this encounter Results (ABNORMAL) Hemoglobin A1C Glycosylated (07/18/2020 2:31 PM CDT) Analysis Performed At Patho logist Time Signature Hemoglobin A1C 6.4 (H) <=5.6 % 07/18/2020 [facility] (Rapid) 4:41 PM CDT LABORATORY Specimen Anatomical Collection Method / Collection Time Recei andrade Time (Source) Location / Volume Laterality Blood Venipuncture / 07/18/2020 2:31 07/18/2020 2:31 Unknown PM CDT PM CDT Narrative [facility] - 07/18/2020 4:41 PM CDT For patients not previously diagnosed with diabetes: 5.7-6.4%: Increased risk for diabetes 6.5% and greater: Diagnostic for diabete s For patients diagnosed with diabetes: <8.0%: Goal of therapy for ages 18-75 Clinicians may recommend a higher or low er goal for specific individuals. This Hemoglobin A1c assay has significan t interference with elevated Hemoglobin (HbF) and other Hemoglobin variants. In patients with results that do not correlate clinically, contact the laboratory for further direction. Fausto PAT[facility] LAB_1 Performing Organization Address City/[facility]/ZIP Code Phon e Number [facility] [address] [place] [address] TSH (07/18/2020 2:31 PM CDT) athologist Signature TSH, Sensitive 3.11 0.30 - 07/18/2020 [facility] 4.50 7:20 PM CDT LABORATORY uIU/mL Specimen Anatomical Collection Method / Collection Time Recei andrade Time (Source) Location / Volume Laterality Blood Venipuncture / 07/18/2020 2:31 07/18/2020 2:31 Unknown PM CDT PM CDT Fausto Maldonado [facility]_1 Performing Organization Address City/State/ZIP Code Phon e Number [facility] [address] [place] [address] (ABNORMAL) BMP - Basic Metabolic Panel (07/18/2020 2:31 PM CDT) [facility] Method Time Signature Sodium 139 136 - 145 07/18/2020 [facility] mmol/L 4:37 PM CDT LABORATORY Potassium 3.9 3.5 - 5.1 07/18/2020 [facility] mmol/L 4:37 PM CDT LABORATORY Chloride 108 98 - 109 07/18/2020 [facility] mmol/L 4:37 PM CDT LABORATORY CO2 21 20 - 29 07/18/2020 [facility] mmol/L 4:37 PM CDT LABORATORY Anion Gap 10 7 - 16 07/18/2020 [facility] mmol/L 4:37 PM CDT LABORATORY Calcium 8.9 8.4 - 10.4 07/18/2020 [facility] mg/dL 4:37 PM CDT LABORATORY BUN 5 (L) 7 - 26 07/18/2020 [facility] mg/dL 4:37 PM CDT LABORATORY Creatinine 0.50 (L) 0.55 - 07/18/2020 [facility] 1.02 mg/dL 4:37 PM CDT LABORATORY GFR, Estimated >60 >60 07/18/2020 [facility] mL/min/1.7 4:37 PM CDT LABORATORY 3m2 Glucose 86 70 - 100 07/18/2020 [facility] mg/dL 4:37 PM CDT LABORATORY Comment: The given reference range is fo r the fasting state. Non-fasting reference range for glucose is 70 - 180 mg/dL. Hours Fasting Unknown 07/18/2020 4:37 PM CDT [facility] Specimen Anatomical Collection Method / Collection Time Recei andrade Time (Source) Location / Volume Laterality Blood Venipuncture / 07/18/2020 2:31 07/18/2020 2:31 Unknown PM CDT PM CDT Fausto Fenton Joel [facility] LAB_1 Performing Organization Address City/State/ZIP Code Phon e Number [facility] [address] [place] [address] documented in this encounter Visit Diagnoses Diagnosis Pre-existing type 1 diabetes mellitus du ring in second trimester - Primary Subclinical hypothyroidism Other specified acquired hypothyroidism documented in this encounter Care Teams Alternative Energy Engineer Relationship Specialty Start Date End Date Palmira Lim MD PCP - General 05/08/06 [address] [place], [place] [address] documented as of this encounter
--- OUTSIDE RECORDS SUMMARY | 2021-12-08 10:25 | XMS_ITS | Encounter Summary ---
:1999 Author Organization [facility] Address [address] [place] [address] Care Team Providers Name Role Phone Palmira Lim MD Primary Care Provider Encounter Details Date Type Department Care Team Description 07/18/2020 Lab Visit [facility] Pre-existing type 1 diabetes mellitus during in second trimester; [address] [facility] Subclinical hypothyroidism; [place] [address] Gestational hypertension, th ird trimester [phone] Social History Tobacco Use Types Packs/Day Years [...] Name Priority Date/Time Associated Diagnosis Comme nts TSH, SENSITIVE Routine 07/18/2020 2:31 PM Pre-existing type 1 Results for this CDT diabetes mellitus procedure are in during in the resu lts second trimester section. Subclinical hypothyroidism BASIC METABOLIC Routine 07/18/2020 2:31 PM Pre-existing type 1 Results for this PANEL CDT diabetes mellitus procedure are [facility]. Subclinical hypothyroidism HGB A1C Routine 07/18/2020 2:31 PM Pre-existing type 1 Re sults for this CDT diabetes mellitus procedure are in during [facility]. Subclinical hypothyroidism ALT (SGPT) Routine 07/18/2020 2:31 PM Gestational Results f or this CDT hypertension, third procedur e are in trimester the results section. AST Routine 07/18/2020 2:31 PM Gestational Results f or this CDT hypertension, third procedur e are in trimester the results section. documented in this encounter Results Alanine Aminotransferase [ALT] (07/18/2020 2:31 PM CDT) athologist Signature ALT (SGPT) 11 0 - 55 U/L 07/19/2020 [facility] 2:52 PM CDT LABORATORY Specimen Anatomical Collection Method / Collection Time Recei andrade Time (Source) Location / Volume Laterality Blood Venipuncture / 07/18/2020 2:31 07/18/2020 2:31 Unknown PM CDT PM CDT Shana Hernández MD LAB_1 Performing Organization Address [facility]/ZIP Code Phon e Number [facility] [address] [place], [place] [address] AST (SGOT) [AST] (07/18/2020 2:31 PM CDT) athologist Signature AST (SGOT) 14 10 - 40 U/L 07/19/2020 [facility] 2:52 PM CDT LABORATORY Specimen Anatomical Collection Method / Collection Time Recei andrade Time (Source) Location / Volume Laterality Blood Venipuncture / 07/18/2020 2:31 07/18/2020 2:31 Unknown PM CDT PM CDT Shana Hernández MD LAB_1 Performing Organization Address [facility]/ZIP Code Phon e Number [facility] [address] [place], [place] [address] (ABNORMAL) Hemoglobin A1C Glycosylated (07/18/2020 2:31 PM CDT) Analysis Performed At Patho logist Time Signature Hemoglobin A1C 6.4 (H) <=5.6 % 07/18/2020 [facility] (Rapid) 4:41 PM CDT LABORATORY Specimen Anatomical Collection Method / Collection Time Recei andrade Time (Source) Location / Volume Laterality Blood Venipuncture / 07/18/2020 2:31 07/18/2020 2:31 Unknown PM CDT PM CDT Narrative [facility] - 07/18/2020 4:41 PM CDT For [...] clinically, contact the laboratory for further direction. Lilian FINNEGAN LAB_1 Performing Organization Address City/State/ZIP Code Phon e Number [facility] [address] [place] [address] TSH (07/18/2020 2:31 PM CDT) P athologist Signature TSH, Sensitive 3.11 0.30 - 07/18/2020 [facility] 4.50 7:20 PM CDT LABORATORY uIU/mL Specimen Anatomical Collection Method / Collection Time Recei andrade Time (Source) Location / Volume Laterality Blood Venipuncture / 07/18/2020 2:31 07/18/2020 2:31 Unknown PM CDT PM CDT Lilian FINNEGAN LAB_1 Performing Organization Address City/State/ZIP Code Phon e Number [facility] [address] [place] [address] (ABNORMAL) BMP - Basic Metabolic Panel (07/18/2020 2:31 PM CDT) Patholo gist Method Time Signature Sodium 139 136 - 145 07/18/2020 [facility] mmol/L 4:37 PM CDT LABORATORY Potassium 3.9 3.5 - 5.1 07/18/2020 [facility] mmol/L 4:37 PM CDT LABORATORY Chloride 108 98 - 109 07/18/2020 [facility] mmol/L 4:37 PM CDT LABORATORY CO2 21 20 - 29 07/18/2020 [facility] mmol/L 4:37 PM CDT LABORATORY Anion Gap 10 7 - 16 07/18/2020 [facility] mmol/L 4:37 PM CDT LABORATORY Calcium 8.9 8.4 - 10.4 07/18/2020 [facility] mg/dL 4:37 PM CDT LABORATORY BUN 5 (L) 7 - 26 07/18/2020 [facility] mg/dL 4:37 PM CDT LABORATORY Creatinine 0.50 (L) 0.55 - 07/18/2020 [facility] 1.02 mg/dL 4:37 PM CDT LABORATORY GFR, Estimated >60 >60 07/18/2020 [facility] mL/min/1.7 4:37 PM CDT LABORATORY 3m2 Glucose 86 70 - 100 07/18/2020 [facility] mg/dL 4:37 PM CDT LABORATORY Comment: The given reference range is fo r the fasting state. Non-fasting reference range for glucose is 70 - 180 mg/dL. Hours Fasting Unknown 07/18/2020 4:37 PM CDT [facility] Specimen Anatomical Collection Method / Collection Time Recei andrade Time (Source) Location / Volume Laterality Blood Venipuncture / 07/18/2020 2:31 07/18/2020 2:31 Unknown PM CDT PM CDT Lilian PATEL LAB_1 Performing Organization Address City/State/ZIP Code Phon e Number [facility] [address] [place] [address] documented in this encounter Visit Diagnoses Diagnosis Pre-existing type 1 diabetes mellitus du ring in second trimester Subclinical hypothyroidism Other specified acquired hypothyroidism Gestational hypertension, third trimeste r documented in this encounter Care Teams Field Consultant Relationship Specialty Start Date End Date Palmira Lim MD PCP - General 05/08/[address] [place], [place] [address] documented as of this encounter
--- OUTSIDE RECORDS SUMMARY | 2021-12-08 10:25 | XMS_ITS | Encounter Summary ---
:1999 Author Organization [employer] Address [address] [place] [address] Care Team Providers Name Role Phone Palmira Lim MD Primary Care Provider Reason for Visit Reason Comments CONSULT Encounter Details Date Type Department Care Team Description 07/09/2020 Procedure Visit [facility] 3931 Me liz Delgadillo MD CONSULT Maternal Medic ine [address] [facility] [address] [place] [phone] Social History Tobacco Use Types Packs/Day Years [...] documented as of this encounter Progress Notes Kamila Delgadillo MD - 07/09/2020 11:15 AM CDT MFM ULTRASOUND AND BRIEF CONSULTATION DATE OF VISIT: 07/09/20 IMPRESSIONS: 1) Intrauterine at 31 weeks 3 days gestational age 2) No anomalies noted 3) Macrosomia is suspected with estimated weight at 99%tile 4) The amniotic fluid volume is increased, 31cm 5) No evidence of placenta previa 6) [facility] 10/07 RECOMMENDATIONS: -Please see separate consult note for additional counseling -Continue twice weekly testing -Repeat growth with MFM in 4 weeks Brief consult: In addition to the ultrasound interpretation, the patient was seen for a brief consultation. Nabila is a 19 year old at 31 weeks and 3 days by 1st trimester US. This is complicated by suboptimal control of type 1 DM. Additional complications include: moderate polyhydramnios. Tobacco use in : None I reviewed her OB records including pertinent labs, imaging results, and notes as summarized above. Nabila has no complaints. No contractions or shortness of breath. Worsening polyhydramnios is noted. Suspect underlying cause is suboptimal control of diabetes and macrosomia but informed Nabila that we cannot rule out all of the uncommon causes of poly (including some congenital anomalies, neuromuscular abnormalities, etc). Advised continued ultrasound surveillance. We discussed risk of maternal discomfort. Amnioreduction is recommended only for the indication of severe maternal discomfort, dyspnea, or both in the setting of severe polyhydramnios. Nabila had a number of routine labor and delivery questions. Some were answered, the remaining were deferred to the primary OB. Thank you for your kind referral. We look forward to assisting you with any additional needs. Pleasecall with questions. Low complexity visit with review of Endocrine note from 06/13 and review of OB note from 07/05. [place]. [id number] billed. documented in this encounter Plan of Treatment Not on filedocumented as of this encounter Visit Diagnoses Diagnosis Polyhydramnios in third trimester compli cation, single or unspecified fetus - Primary Macrosomia Exceptionally large baby relating to meir g gestation documented in this encounter Care Teams Insurance Marketing Specialist Relationship Specialty Start Date End Date Palmira Lim MD PCP - General 05/08/[address] [place] [address] documented as of this encounter
--- OUTSIDE RECORDS SUMMARY | 2021-12-08 10:25 | XMS_ITS | Encounter Summary ---
:1999 Author Organization [facility] Address [address] [place] [address] Care Team Providers Name Role Phone Palmira Lim MD Primary Care Provider Reason for Visit Procedure/Equipment (Routine) - Canceled Specialty Diagnoses / Procedures Referred By Contact Refer red To Contact Diagnoses Pre-existing type 1 diabetes mellitus during in second trimester Denisha Serna, CANE FLUME WATCHER, EDUCATION TECHNICIAN Procedures US OB BPP / SATYA Single [id number] [place] [id number] Referral ID Status Reason Start Date Expiration Date Visits V isits Requested Authorized [id number] Canceled 06/11/2020 09/10/2021 18 18 Encounter Details Date Type Department Care Team Description 07/23/2020 Ancillary [facility] Denisha Serna, Pre-e xisting type 1 Procedure Services-Ultrasound CANE FLUME WATCHER, EDUCATION TECHNICIAN diabetes mellitus [address] [address] [address], [address] [place], [place] second trimester KAYLYN [place] [phone] Social History Tobacco Use Types Packs/Day Years [...] Progress Notes Denisha Serna APRN, CNP - 07/23/2020 12:45 PM CDT BPP 8/8, SATYA 29, vertex. MS-EDUCATION TECHNICIAN documented in this encounter Plan of Treatment Not on filedocumented as of this encounter Procedures Procedure Name Priority Date/Time Associated Diagnosis Comme nts US OB BPP / SATYA Routine 07/23/2020 1:12 PM Pre-existing type 1 Results for this SINGLE CDT diabetes mellitus procedure are in during in the resu lts second trimester section. documented in this encounter Results US OB BPP / SATYA Single (07/23/2020 1:12 PM CDT) Anatomical Region Laterality Modality Pelvis Ultrasound Study GA Study Date Study TATE Working TATE (Source) W eight (Method) Result Name Value Comments FHR 133 bpm BPP 8 SATYA Q1 9.08 cm SATYA Q2 5.27 cm SATYA Q3 9.03 cm SATYA Q4 5.87 cm SATYA 29.25 cm Specimen (Source) Anatomical Collection Method Collection Time Re ceived Time Location / / Volume Laterality 07/23/2020 12:40 PM CDT Impressions 07/23/2020 1:45 PM CDT TECHNIQUE: Limited ultrasound examination was performed for evaluation of amniotic fIuid index (SATYA) and biophysical profile (BPP). ? FINDINGS: Type of Gestation: Colby Presentation: ??vertex Cardiac Rate: ??133 BPM Placental Position: ??posterior. 4-quadrant SATYA: ??29.3 cm. Q1: ??9.1 cm. Q2: ??5.3 cm. Q3: ??9.0 cm. Q4: ??5.9 cm. Other Findings: None. BPP breathing: ??2 [...] NA SATYA results called: NA Procedure Note Mendoza Marion MD - 07/23/2020 IMPRESSION TECHNIQUE: Limited ultrasound examinatio n was performed for evaluation of amniotic fIuid index (SATYA) and biophysical profile (BPP). FINDINGS: Type of Gestation: Colby Presentation: vertex Cardiac Rate: 133 BPM Placental Position: posterior. 4-quadrant SATYA: 29.3 cm. Q1: 9.1 cm. Q2: 5.3 cm. Q3: 9.0 cm. Q4: 5.9 cm. Other Findings: None. BPP breathin (One episode of breathing for 30 seconds) Gross movements: 2 (3 body, limb, discrete or separate movements) tone: 2 (One episode of extension/ flexion of limbs, head or trunk) Amniotic fluid single deepest pocket: 2 (greater than or equal to 2 cm) TOTAL SCORE: 8 BPP results called: NA SATYA results called: NA Denisha Serna APRN, EDUCATION TECHNICIAN [facility] documented in this encounter Visit Diagnoses Diagnosis Pre-existing type 1 diabetes mellitus du ring in second trimester documented in this encounter Care Teams Side Splitter Relationship Specialty Start Date End Date Palmira Lim MD PCP - General 05/08/[address] [place] [address] documented as of this encounter
--- OUTSIDE RECORDS SUMMARY | 2021-12-08 10:25 | XMS_ITS | Encounter Summary ---
:1999 Author Organization [employer] Address [address] [place] [address] Care Team Providers Name Role Phone Palmira Lim MD Primary Care Provider Reason for Visit Procedure/Equipment (Routine) - Canceled Specialty Diagnoses / Procedures Referred By Contact Refer red To Contact Diagnoses Pre-existing type 1 diabetes mellitus during in second trimester Denisha Serna, LICENSED JOURNEYMAN ELECTRICIAN, CHIEF ESTIMATOR Procedures US OB BPP / SATYA Single [id number] [place] [address] Referral ID Status Reason Start Date Expiration Date Visits V isits Requested Authorized [id number] Canceled 06/11/2020 09/10/2021 18 18 Encounter Details Date Type Department Care Team Description 07/19/2020 Ancillary [facility] Denisha Serna, Pre-e xisting type 1 Procedure Services-Ultrasound LICENSED JOURNEYMAN ELECTRICIAN, CHIEF ESTIMATOR diabetes mellitus [address] [place] [address] [address] during in [address], [address] [place], [place] second trimester [place] [phone] Social History Tobacco Use Types Packs/Day Years [...] Progress Notes Denisha Serna APRN, CNP - 07/19/2020 12:45 PM CDT BPP 8/8, 30 cm. Persistent polyhydramnios vertex.-CHIEF ESTIMATOR documented in this encounter Plan of Treatment Not on filedocumented as of this encounter Procedures Procedure Name Priority Date/Time Associated Diagnosis Comme nts US OB BPP / SATYA Routine 07/19/2020 1:18 PM Pre-existing type 1 Results for this SINGLE CDT diabetes mellitus procedure are in during in the resu lts second trimester section. documented in this encounter Results US OB BPP / SATYA Single (07/19/2020 1:18 PM CDT) Anatomical Region Laterality Modality Pelvis Ultrasound Specimen (Source) Anatomical Collection Method Collection Time Re ceived Time Location / / Volume Laterality 07/19/2020 12:49 PM CDT Impressions 07/19/2020 2:10 PM CDT TECHNIQUE: Limited ultrasound examination was performed for evaluation of amniotic fIuid index (SATYA) and biophysical profile (BPP). ? FINDINGS: Type of Gestation: Colby Presentation: ??Cephalic Cardiac Rate: ??134 BPM Placental Position: ??Fundus . 4-quadrant SATYA: ??30.1 cm. Q1: ??7.1 cm. Q2: ??6.8 cm. Q3: ??9.2 cm. Q4: ??6.9 cm. Other Findings: Persistent polyhydramnio s with the SATYA of 30.1 BPP breathing: ??2 (One episode of fet [...] NA Procedure Note Mendoza Marion MD - 07/19/2020 IMPRESSION TECHNIQUE: Limited ultrasound examinatio n was performed for evaluation of amniotic fIuid index (SATYA) and biophysical profile (BPP). FINDINGS: Type of Gestation: Colby Presentation: Cephalic Cardiac Rate: 134 BPM Placental Position: Fundus . 4-quadrant SATYA: 30.1 cm. Q1: 7.1 cm. Q2: 6.8 cm. Q3: 9.2 cm. Q4: 6.9 cm. Other Findings: Persistent polyhydramnio s with the SATYA of 30.1 BPP breathin (One episode of breathing for 30 seconds) Gross movements: 2 (3 body, limb, discrete or separate movements) tone: 2 (One episode of extension/ flexion of limbs, head or trunk) Amniotic fluid single deepest pocket: 2 (greater than or equal to 2 cm) TOTAL SCORE: 8 BPP results called: NA ASTYA results called: NA Denisha Serna APRN, CHIEF ESTIMATOR [facility] documented in this encounter Visit Diagnoses Diagnosis Pre-existing type 1 diabetes mellitus du ring in second trimester documented in this encounter Care Teams Manager Welding Relationship Specialty Start Date End Date Palmira Lim MD PCP - General 05/08/[address] [place] [address] documented as of this encounter
--- OUTSIDE RECORDS SUMMARY | 2021-12-08 10:25 | XMS_ITS | Encounter Summary ---
:2000 Author Organization [employer] Address [address] [place] [address] Care Team Providers Name Role Phone Palmira Lim MD Primary Care Provider Reason for Visit Reason Comments Routine Visit Encounter Details Date Type Department Care Team Description 08/06/2020 Procedure Visit Specialty Center Kamila Delgadillo Ro utine 3931 Maternal MD Visit Medicine 3931 [facility] [address]31 [place] [address] [phone] Social History Tobacco Use Types Packs/Day Years [...] Sign Reading Time Taken Comments Blood Pressure 159/96 08/06/2020 11:02 AM CDT Pulse 74 08/06/2020 11:02 AM CDT Temperature - - Respiratory Rate - - Oxygen Saturation - - Inhaled Oxygen Concentration - - Weight 100.3 kg (221 lb 1.6 oz) 08/06/2020 11:02 AM CDT Height - - Body Mass Index 39.17 07/18/2020 2:05 PM CDT documented in this encounter Progress Notes Kamila Delgadillo MD - 08/06/2020 11:15 AM CDT [facility] ULTRASOUND ENCOUNTER This patient was seen in the [facility] US unit today. Please see separate imaging report. documented in this encounter Plan of Treatment Not on filedocumented as of this encounter Visit Diagnoses Diagnosis Pre-existing type 1 diabetes mellitus du ring in second trimester - Primary documented in this encounter Care Teams Export Clerk Relationship Specialty Start Date End Date Palmira Lim MD PCP - General 05/08/[address] [place] [phone] documented as of this encounter
--- OUTSIDE RECORDS SUMMARY | 2021-12-08 10:26 | XMS_ITS | Encounter Summary ---
:2000 Author Organization [employer] Address [address] [place] [address] Care Team Providers Name Role Phone Palmira Lim MD Primary Care Provider Reason for Visit Reason Comments CONSULT Consult/Transfer Care (Routine) - Closed Specialty Diagnoses / Procedures Referred By Contact Refer red To Contact Diagnoses Supervision of other high risk , antepartum History of pulmonary embolism Denisha Serna, PROCUREMENT PROFESSIONAL, DIABETES NURSE [address] [place] [address] Referral ID Status Reason Start Date Expiration Date Visits Requ ested Visits Authorized [id number] Closed 03/08/2020 06/07/2021 1 1 Encounter Details Date Type Department Care Team Description 03/30/2020 [facility] 3931 Kamila Delgadillo, Pre-existing type 1 diabetes mellitus during in second trimester (Primary Dx); Maternal Class 1 obesity due to excess calories w ith serious comorbidity in adult, unspecified BMI Medicine [id number] [place] [address] [phone] Social History Tobacco Use Types Packs/Day Years [...] encounter Progress Notes Kamila Delgadillo MD - 03/30/2020 2:00 PM CST [facility] TELEHEALTH CONSULTATION DATE OF VISIT: 03/30/20 Dr. Nabila Belle Obstetrics and Gynecology Re: Nabila Serna : 2000 Dear Colleagues, I had the pleasure of meeting with your patient, Nabila Serna, for a maternal medicine consultation due to her history of type 1 diabetes and possible pulmonary embolism. As you know, Nabila is a 19 year old at 17 weeks and 2 days by 1st trimester US. Her medical history is significant for an episode of DKA in 2018, for which she was hospitalized at [facility]. During this hospitalization she recalled being treated for a pulmonary embolism (as told to the patient by her mother). She recalls blood thinning injections for 3 days while hospitalized, and is certain she was not discharged home on any blood thinner. Review of records from her hospitalization indicate a normal chest xray and VQ scan. There are no records or studies which indicate a finding of pulmonary embolism or other DVT. Nabila had thrombophilia labs drawn in early March which were negative (low protein S activity noted). Nabila is followed closely by Endocrine for Type 1 DM. Her most recent Hgb A1c is 6.6%, down from a historical high of 11% in January 2020. Nabila also has hypothyroidism for which she takes Synthroid. The remainder of Nabila's past medical, surgical, social, and family history were reviewed per the EMR as were her medications and allergies. Nabila has been taking Lovenox 40mg since ~14 weeks. Nabila has no complaints today. I counseled Nabila that her medical records do not support a diagnosis of pulmonary embolism and her labwork is inconsistent with thrombophilia (Prot S unreliable in ) so there is no indicationto Lovenox. I advised Nabila to stop injections today. Next, we discussed the management of diabetes in . Risks to the fetus/ include an increased risk of miscarriage, malformations (most commonly cardiac anomalies and neural tube defects), growth abnormalities including macrosomia as well as growth restriction, , and sti llbirth. Based on these factors, we recommend a level 2 ultrasound at 20 weeks followed by ultrasound monitoring of growth and amniotic fluid volume every 4 weeks (at 28 weeks). We also recommendtwice weekly testing starting at 32 weeks (or as early as 28 weeks with poor control). RECOMMENDATIONS: -Level 2 US with echo at 20 weeks -Growth ultrasounds every 4 weeks -Begin twice weekly testing at 32 weeks -Baseline HELLP labs were normal -Assessment of diabetic retinopathy by Ophthalmology at least once, due to the increased risk of retinopathy in -Begin daily baby aspirin for preeclampsia prevention. Stop at delivery -Delivery at 39 weeks for well-controlled diabetes Thank you for your kind referral. We look forward to assisting you with any additional needs. Pleasecall with questions. During this visit I addressed a moderate complexity issue (type 1 DM), reviewed records from 2019 hospitalization and preeclampsia labs - 4 separate labs. A follow up ultrasound with MFM was recommended and a management recommendation for a prescription drug was made. [id number] billed. EGNATION OPERATOR documented in this encounter Plan of Treatment Scheduled Referrals Name Type Priority Associated Diagnoses Order S chedule Maternal Referral Routine Supervision of other high Ordered: 03/08/2020 Medicine Consult risk , antepartum History of pulmonary embolism documented as of this encounter Visit Diagnoses Diagnosis Pre-existing type 1 diabetes mellitus du ring in second trimester - Primary Class 1 obesity due to excess calories w ith serious comorbidity in adult, unspecified BMI (HRC) documented in this encounter Care Teams Tool Filer Hand Relationship Specialty Start Date End Date Palmira Lim MD PCP - General 05/08/[address] [place] [address] documented as of this encounter
--- OUTSIDE RECORDS SUMMARY | 2021-12-08 10:26 | XMS_ITS | Encounter Summary ---
:2000 Author Organization [employer] Address [address] [place] [address] Care Team Providers Name Role Phone Palmira Lim MD Primary Care Provider Encounter Details Date Type Department Care Team Description 06/22/2020 Lab Visit [facility] Pre-exist ing type 1 [facility] diabetes mellitus during [address] [facility] in second 420 [place] [address] Social History Tobacco Use [...] this encounter Progress Notes Denisha Serna, SANDOVAL, SENIOR MANAGER QUALITY ASSURANCE - 06/22/2020 1:05 PM CDT Hemoglobin 10.4. Please advised patient to continue to use vitamins with iron. Start an iron supplement called Slow Fe every other day as well. Please use it with a Vitamin C food source for improved absorption. MS-SENIOR MANAGER QUALITY ASSURANCE Tiffany Meyer LPN - 06/22/2020 1:05 PM CDT Left message for pt to call office. See phone note 06/22/2020. Tiffany Meyer LPN - 06/22/2020 1:05 PM CDT Pt notified. documented in this encounter Plan of Treatment Not on filedocumented as of this encounter Procedures Procedure Name Priority Date/Time Associated Comments Diagnosis TP/CREA RATIO, URINE Routine 06/22/2020 1:11 PM Pre-existing t ype 1 Results for this CDT diabetes mellitus [facility]. TREPONEMA SCREEN Routine 06/22/2020 1:08 PM Pre-existing type 1 Results for this CDT diabetes mellitus procedure are [facility]. CREATININE / GFR Routine 06/22/2020 1:08 PM Pre-existing type 1 Results for this CDT diabetes mellitus procedure are in [facility] second trimester section. COMPLETE BLOOD Routine 06/22/2020 1:08 PM Pre-existing type 1 Results for this COUNT-NO DIFF CDT diabetes mellitus procedure are in [facility]. ALT (SGPT) Routine 06/22/2020 1:08 PM Pre-existing type 1 Re sults for this CDT diabetes mellitus procedure are in [facility]. AST Routine 06/22/2020 1:08 PM Pre-existing type 1 Re sults for this CDT diabetes mellitus procedure are [facility]. documented in this encounter Results (ABNORMAL) TP/Crea Ratio, Urine (06/22/2020 1:11 PM CDT) athologist Signature Total Protein, 20 (H) 0 - 14 06/22/2020 [facility] Urine, Random mg/dL 4:20 PM CDT LABORATORY Creatinine, 219 >20 mg/dL 06/22/2020 [facility] Urine, Random 4:20 PM CDT LABORATORY TP/Creat 0.09 0.00 - 06/22/2020 [facility] Ratio, Urine 0.20 4:20 PM CDT LABORATORY Random Specimen Anatomical Collection Method Collection Time Receive d Time (Source) Location / / Volume Laterality Urine Non-blood 06/22/2020 1:11 PM 1:11 Collection / CDT PM CDT Unknown Narrative [facility] - 06/22/2020 4:20 P M CDT Low urine creatinine values coupled with low urine protein values can artifactually increase the urine protein/creatinine re sults. Correlate results of ratio with creatinine results. Denisha Fenton Daphne NICK CNP LAB_1 Performing Organization Address City/[facility]/ZIP Code Phon e Number [facility] [address] [place] [id number] Treponema Screen (06/22/2020 1:08 PM CDT) [facility] Method Time Signature Treponema Screen 0.035 {s_co_ratio 06/22/2020 [facility] Result } 4:13 PM CDT LABORATORY Treponema Screen Non Non 06/22/2020 [facility] Interpretation Reactive Reactive 4:13 PM CDT LABORATORY Specimen Anatomical Collection Method / Collection Time Recei andrade Time (Source) Location / Volume Laterality Blood Venipuncture / 06/22/2020 1:08 06/22/2020 1:08 Unknown PM CDT PM CDT Denisha Fenton Daphne NICK CNP LAB_1 Performing Organization Address City/[facility]/ZIP [facility] Phon e Number [facility] [place] [address] (ABNORMAL) Creatinine / GFR (06/22/2020 1:08 PM CDT) [facility] Method Time Signature Creatinine 0.50 (L) 0.55 - 06/22/2020 [place] 1.02 mg/dL 4:52 PM CDT LABORATORY GFR, Estimated >60 >60 06/22/2020 [facility] mL/min/1.7 4:52 PM CDT LABORATORY 3m2 Specimen Anatomical Collection Method / Collection Time Recei andrade Time (Source) Location / Volume Laterality Blood Venipuncture / 06/22/2020 1:08 06/22/2020 1:08 Unknown PM CDT PM CDT Denisha Fenton Daphne ACID SPLICER, SENIOR MANAGER QUALITY ASSURANCE LAB_1 Performing Organization Address City/State/ZIP Code Phon e Number [facility] [address] [place] [address] (ABNORMAL) Complete Blood Count-No Diff (06/22/2020 1:08 PM CDT) [facility] gist Method Time Signature WBC 6.9 3.5 - 10.5 06/22/2020 [facility] x10(9)/L 2:51 PM CDT LABORATORY RBC 3.87 (L) 3.90 - 06/22/2020 [facility] 5.03 2:51 PM CDT LABORATORY x10(12)/L Hemoglobin 10.4 (L) 12.0 - 06/22/2020 [facility] 15.5 g/dL 2:51 PM CDT LABORATORY HCT 32.0 (L) 34.9 - 06/22/2020 [facility] 44.5 % 2:51 PM CDT LABORATORY MCV 82.7 80.0 - 06/22/2020 [facility] 100.0 fL 2:51 PM CDT LABORATORY MCH 26.9 (L) 27.6 - 06/22/2020 [facility] 33.3 pg 2:51 PM CDT LABORATORY MCHC 32.5 31.5 - 06/22/2020 [facility] 35.2 g/dL 2:51 PM CDT LABORATORY RDW 12.7 11.9 - 06/22/2020 [facility] 15.5 % 2:51 PM CDT LABORATORY Platelets 322 150 - 450 06/22/2020 [facility] x10(9)/L 2:51 PM CDT LABORATORY Automated NRBC 0 <=0 /100 06/22/2020 [facility] WBC 2:51 PM CDT LABORATORY Specimen Anatomical Collection Method / Collection Time Recei andrade Time (Source) Location / Volume Laterality Blood Venipuncture / 06/22/2020 1:08 06/22/2020 1:08 Unknown PM CDT PM CDT Denisha Serna APRMITZI Montano LAB_1 Performing Organization Address [facility] Jemma [facility] [address] [place] [phone] AST (06/22/2020 1:08 PM CDT) athologist Signature AST (SGOT) 14 10 - 40 U/L 06/22/2020 [facility] 4:52 PM CDT LABORATORY Specimen Anatomical Collection Method / Collection Time Recei andrade Time (Source) Location / Volume Laterality Blood Venipuncture / 06/22/2020 1:08 06/22/2020 1:08 Unknown PM CDT PM CDT Denisha Serna MITZI NICK LAB_1 Performing Organization Address [facility] LABORATORY [address] [place] [phone] ALT (SGPT) (06/22/2020 1:08 PM CDT) P athologist Signature ALT (SGPT) <10 0 - 55 U/L 06/22/2020 [facility] 4:52 PM CDT LABORATORY Specimen Anatomical Collection Method / Collection Time Recei andrade Time (Source) Location / Volume Laterality Blood Venipuncture / 06/22/2020 1:08 06/22/2020 1:08 Unknown PM CDT PM CDT Denisha Serna MITZI NICK LAB_1 Performing Organization Address [facility] Jemma [facility] [address] [place] [phone] documented in this encounter Visit Diagnoses Diagnosis Pre-existing type 1 diabetes mellitus du ring in second trimester documented in this encounter Care Teams Tobacco Flavorer Relationship Specialty Start Date End Date Palmira Lim MD PCP - General 05/08/[address] [place] [address] documented as of this encounter
--- OUTSIDE RECORDS SUMMARY | 2021-12-08 10:26 | XMS_ITS | Encounter Summary ---
:2000 Author Organization [employer] Address [address] [place] [address] Care Team Providers Name Role Phone Palmira Lim MD Primary Care Provider Reason for Visit Procedure/Equipment (Routine) - Incomplete Specialty Diagnoses / Procedures Referred By Contact Refer red To Contact Diagnoses Pre-existing type 1 diabetes mellitus during in second trimester Ying Belle MD Procedures MFM US Level 2, Echo MF US Level 2 [address] [place], [place] [address] Referral ID Status Reason Start Date Expiration Date Visits V isits Requested Authorized [id number] Incomplete 03/26/2020 06/25/2021 10 10 Encounter Details Date Type Department Care Team Description 04/25/2020 Ancillary [facility] Ying Belle, Pre-e xisting type 1 Procedure 3931 Maternal MD diabetes mellitus Medicine [address] during in [address] [place] [address] [facility] second trimester [facility]. [facility] [address] [place] [address] [phone] Social History Tobacco Use Types Packs/Day Years [...] Name Priority Date/Time Associated Diagnosis Comme nts [facility] US LEVEL 2, Routine 04/25/2020 10:10 AM Pre-existing type 1 Results for this ECHO RAG SORTER diabetes mellitus procedure are in during in the resu lts second trimester section. documented in this encounter Results [facility] US Level 2, Echo (04/25/2020 10:10 AM RAG SORTER) athologist Signature Cervical Length 3.72 cm EXTERNAL RESULTS Anatomical Region Laterality Modality Pelvis Ultrasound Study GA Study Date Study TATE Working TATE (Source) W eight (Method) 21w3d 04/25/2020 2020 2020 (Last Menstrual 4 66 g (Hadlock 1984 (BPD, Period) HC, AC, FL) )47 7 g (Hadlock 1984 ( AC, FL) )473 g (Hadlock 1984 (BPD, AC, FL) )464 g (Hadlock 1984 (HC, AC, F L) )566 g (Hadlock 1983 ( AC) )495 g (Hadlock 1983 ( HC, AC) )495 g (Arreaga 1981 (BPD, AC) ) Result Name Value Comments GA by US Calc 150 days 150 BPD 5.24 cm 153 HC 19.36 cm 151 AC 17.87 cm 159 FL 3.52 cm 148 HL 3.06 cm FL/BPD 67.18 % FL/AC 19.7 % HC/AC 1.08 CI 75.72 % SATYA Q1 SATYA Q2 SATYA Q3 SATYA Q4 SATYA Lateral Ventricle CER 2.12 cm Foot 3.69 cm 151 Max Vertical Pocket FHR 144 bpm UAR - PSV UAR - S/D Ratio UAR - RI UAR - PI MCA - PSV MCA - S/D Ratio MCA - PI Cisterna Magna 0.59 cm NF 0.41 cm Specimen (Source) Anatomical Location Collection Method / Collectio n Time Received Time / Laterality Volume Addenda Addendum by Kamila Delgadillo MD on 1:32 PM RAG SORTER Table formatting from the original resul t was not included. Patient Name: Nabila Srena ??Attendi ng: Kamila Delgadillo MD Patient ??Dry House Attendant: Otilia Lewis RDMS , Age: 709/02/2000, 19 y.o. ??GA Prior t o Exam: 21w3d LMP: Patient's last menstrual period was 11/27/2019 (exact date). ??GA by Today's US: 21w3d Pregnancies: ??GA TATE: 21w3d Last Menstrual Period Pre- BMI: ?TATE: 2020 Hx/Indications: Type 1 IDDM Hypothyroid Neg First Tri Screen Hx PE/DKA Hospitalization On Lovenox On baby asa Evaluation Gestation Type johnson Cardiac Activity present Motion normal Presentation cephalic Amniotic Fluid normal Placenta Location posterior, left latera l Placenta Appearance abnormal Placenta Cord Insertion normal Placenta: ??There is a complex area wit hin the edge of the placenta measuring 5.26 x 4.85 x 2.45 cm. Measurement Value Rank GA BPD 5.24 cm 67% 21w6d HC 19.36 cm 47% 21w4d AC 17.87 cm 83% 22w5d FL 3.52 cm 30% 21w1d HL 3.06 cm 5 - 50% ?? FL/BPD 67.18 % ?? FL/AC 19.7 % < 20% ?? HC/AC 1.08 5 - 50% ?? CI 75.72 % 70 - 86% ?? CER 2.12 cm 10 - 50% ?? Foot 3.69 cm ??21w4d FHR 144 bpm ?? Cisterna Magna 0.59 cm ?? NF 0.41 cm ?? Weight: 466 g (1 lb 0.4 oz), 72% Head ??Abdomen Cranium appears normal ??Diaphragm appea rs normal Midline Falx appears normal ??Stomach ap pears normal Cerebellum appears normal ??Liver appear s normal Vermis appears normal ??Bowel appears no rmal Cisterna Magna appears normal ??Ascites absent Lateral Ventricle appears normal ??Umbil ical Cord Insertion appears normal Choroid Plexus appears normal ??Cord Ves sels three Cavum Septi Pellucidi appears normal ??H eart Corpus Callosum grossly normal ??Heart Rhythm regular Nuchal Fold appears normal ?? Situs nor mal Face ??4 Chamber View appears normal Orbits appears normal ??Cardiac [place] addi ears normal Lenses appears normal ??Cardiac Position appears normal Lips/Nose appears normal ??AV Valves addi ears normal Profile appears normal ??Valve Motion a ppears normal Nasal Bone appears normal ??LVOT/AO addi ears normal Maxilla appears normal ??RVOT/PA appears normal Mandible appears normal ??Aortic Arch ap pears normal Neck appears normal ?? Ductal Arch appea rs normal Spine ??IVC/SVC appears normal Spine appears normal ??3 Vessel View addi ears normal Chest ?? 3 Vessel Trachea View appears n ormal Thorax appears normal ??Foramen Ovale ap pears normal Lungs appears normal ??Pulmonary Veins a ppears normal Pleural Effusion absent ??Short [place] of Ventricles appears normal Extremities ??Short [place] of Great Vessel s appears normal Right Upper Extremity appears normal ?? Pericardial Effusion absent Right Hand appears normal ??Interventric ular Septum appears normal Left Upper Extremity appears normal ??At rial Septum appears normal Left Hand appears normal ??Ductus Venosu s appears normal Right Lower Extremity appears normal ??U rinary Tract Right Foot appears normal ??Right Kidney appears normal Left Lower Extremity appears normal ??Le ft Kidney appears normal Left Foot appears normal ??Bladder appea rs normal ?? Genitalia ?? Genitalia appears normal ?? Sex male ?? Skin ?Edema absent Comments 4 Chamber Heart EIF within the left vent ricle Maternal Evaluation Cervix Normal Uterus Normal Cervical Length 3.72 cm ?? Approach Transabdominal Right Ovary Inad equately Visualized With Fundal Pressure (cm) N/A ?? Left Ov jean-paul Inadequately Visualized Funneling N/A Right Adnexa Normal Cul-de-sac No fluid seen Left Adnexa Nor mal Impression IMPRESSIONS: 1) Intrauterine at 21 weeks 3 days gestational age 2) None of the anomalies commonly detect ed by ultrasound were evident in the detailed anatomic survey descr ibed above. The echocardiogram appears normal. 3) One marker for aneuploidy seen: left echogenic intracardiac focus 4) biometry is consistent with ges tational age. ?? 5) The amniotic fluid volume appeared no rmal. 6) Normal cervical length 7) No evidence of placenta previa 8) Complex, subamniotic cystic structure measuring [id number] RECOMMENDATIONS: -Please see separate consult note for ad ditional counseling -Monthly growth US starting at 28 weeks -Twice weekly testing at 32 weeks due to type 1 DM (once a week is acceptable during the COVID19 pandemic i f DM is well controlled and no other complications arise) -Continue daily baby aspirin for preecla mpsia prevention. Stop at delivery Ying Belle MD RAD LISA US documented in this encounter Visit Diagnoses Diagnosis Pre-existing type 1 diabetes mellitus du ring in second trimester documented in this encounter Care Teams Retail Parts Pro Relationship Specialty Start Date End Date Palmira Lim MD PCP - General 05/08/[address] [place], [place] [address] documented as of this encounter
--- OUTSIDE RECORDS SUMMARY | 2021-12-08 10:26 | XMS_ITS | Encounter Summary ---
:2000 Author Organization [employer] Address [address] [place] [address] Care Team Providers Name Role Phone Palmira Lim MD Primary Care Provider Reason for Visit Reason Comments ERRONEOUS ENTRY Encounter Details Date Type Department Care Team Description 03/14/2020 Telephone Specialty Center 3931 Me liz Delgadillo MD ERRONEOUS ENTRY Maternal Medic ine 3931 [facility] 3931 [place] [address] [place] [address] [phone] Social History Tobacco Use Types Packs/Day Years [...] documented as of this encounter Nursing Notes Twila Chambers RN - 03/14/2020 10:15 AM CST Called patient to set up Lovenox teaching with FUAD RN and consult with FUAD HAQ due to history of pulmonary embolism and currently . Unable to reach patient, prompt states The number you are trying to reach has been disconnected or no longer in service. Routed to primary OB provider. Note Closed. ISTRY MANAGER documented in this encounter Plan of Treatment Not on filedocumented as of this encounter Visit Diagnoses Not on filedocumented in this encounter Care Teams Management Analyst Relationship Specialty Start Date End Date Palmira Lim MD PCP - General 05/08/[address] [place] [address] documented as of this encounter
--- OUTSIDE RECORDS SUMMARY | 2021-12-08 10:26 | XMS_ITS | Encounter Summary ---
:2000 Author Organization [employer] Address [address] [place] [address] Care Team Providers Name Role Phone Palmira Lim MD Primary Care Provider Reason for Visit Reason Comments LAB RESULTS Encounter Details Date Type Department Care Team Description 05/18/2020 Telephone [facility] [address] Sly Maldonado MBBS LAB RESULTS Endocrinology [address] [place] [address] [place], [place] [address] [phone] Social History Tobacco Use Types Packs/Day Years [...] documented as of this encounter Nursing Notes Jostin Ruiz RN - 05/21/2020 1:31 PM CDT Pt advised of provider recommendations below. Pt verbalizes understanding and agrees with plan. Luis Fernando Sher RN - 05/18/2020 8:57 AM CDT Left patient message regarding plan of care, and instructed them to call us back. Luis Fernando Sher RN - 05/18/2020 8:57 AM CDT ----- Message from KAIN Bruce sent at 05/17/2020 5:21 PM CDT ----- TSH is better, continue current thyroid hormone dose. documented in this encounter Plan of Treatment Not on filedocumented as of this encounter Visit Diagnoses Not on filedocumented in this encounter Care Teams Pediatric Occupational Therapist Relationship Specialty Start Date End Date Palmira Lim MD PCP - General 05/08/[address] [place] [address] documented as of this encounter
--- OUTSIDE RECORDS SUMMARY | 2021-12-08 10:26 | XMS_ITS | Encounter Summary ---
:1999 Author Organization [employer] Address [address] [place] [address] Care Team Providers Name Role Phone Palmira Lim MD Primary Care Provider Reason for Visit Reason Comments RESULTS, TEST Encounter Details Date Type Department Care Team Description 06/22/2020 Telephone [facility] Denisha Serna APRN, RESULTS, TEST Services-HTML WEB DEVELOPER [address], [address] [place] [address] [facility] [address] [place] [address] [place] [address] [phone] Social History Tobacco Use Types Packs/Day Years [...] documented as of this encounter Nursing Notes Tiffany Meyer LPN - 06/25/2020 8:47 AM CDT Pt notified. Tiffany Meyer LPN - 06/25/2020 8:44 AM CDT ----- Message from Denisha Serna APRN, CNP sent at 06/24/2020 10:15 PM CDT ----- 28 week labs noted low hemoglobin. Continue to use your vitamins with iron. Start an iron supplement called Slow Fe every other day as well. Please use it with a Vitamin C food source for improved absorption. Baseline preeclampsia labs normal. Sent message to My Chart. MS-SCHOOL COORDINATOR Tiffany Meyer LPN - 06/22/2020 3:46 PM CDT Left message for pt to call office. See phone note 06/22/2020. Tiffany Meyer LPN - 06/22/2020 3:44 PM CDT ----- Message from Denisha Serna APRN, CNP sent at 06/22/2020 3:28 PM CDT ----- Hemoglobin 10.4. Please advised patient to continue to use vitamins with iron. Start an iron supplement called Slow Fe every other day as well. Please use it with a Vitamin C food source for improved absorption. MS-SCHOOL COORDINATOR documented in this encounter Plan of Treatment Not on filedocumented as of this encounter Visit Diagnoses Not on filedocumented in this encounter Care Teams Railroad Shop Inspector Relationship Specialty Start Date End Date Palmira Lim MD PCP - General 05/08/06 [address] [facility] [place] [address] documented as of this encounter
--- OUTSIDE RECORDS SUMMARY | 2021-12-08 10:26 | XMS_ITS | Encounter Summary ---
:1999 Author Organization [employer] Address [address] [place] [address] Care Team Providers Name Role Phone Palmira Lim MD Primary Care Provider Encounter Details Date Type Department Care Team Description 03/29/2020 Notes/Orders [facility] [address] Maldon[address] [facility] Endocrinology M, MBBS hypothyroidism (Primary [address] [facility] [address] [place] [place] [address] [phone] Social History Tobacco Use Types Packs/Day Years [...] hypothyroidism documented in this encounter Care Teams Spray Technician Relationship Specialty Start Date End Date Palmira Lim MD PCP - General 05/08/[address] [place] [address] documented as of this encounter
--- OUTSIDE RECORDS SUMMARY | 2021-12-08 10:26 | XMS_ITS | Encounter Summary ---
:1999 Author Organization [employer] Address [address] [place] [address] Care Team Providers Name Role Phone Palmira Lim MD Primary Care Provider Reason for Visit Reason Comments LAB RESULTS Encounter Details Date Type Department Care Team Description 03/12/2020 Telephone [facility] Denisha Serna APRN, LAB RESULTS Services-COOKER OPERATOR [place] [address] [place] [address] [place] [address] [phone] Social History Tobacco Use Types Packs/Day Years [...] documented as of this encounter Nursing Notes Cristine Hensley MA - 03/12/2020 11:58 AM CST Spoke with pt informing of provider note on NOB1 lab results, pt aware these will be reviewed as well at her next MD appt. Denisha Serna APRN, CNP sent to Eliezer Teodora [facility] ?? New ob labs were within normal range except for the following: ??Thrombophilia panel Low protein S antigen otherwise panel normal. ??This value can be skewed during will be rechecked . ??Hemoglobin A1c 6.9 with type 1 diabetes. ??Please call patient with results. ??MS-UNIT LEADER ?? S REMOVER Cristine Hensley MA - 03/12/2020 11:58 AM CST ----- Message from Denisha Serna APRN, CNP sent at 03/12/2020 8:03 AM PARTS REMOVER ----- New ob labs were within normal range except for the following: Thrombophilia panel Low protein S antigen otherwise panel normal. This value can be skewed during will be rechecked . Hemoglobin A1c 6.9 with type 1 diabetes. Please call patient with results. MS-UNIT LEADER S REMOVER documented in this encounter Plan of Treatment Not on filedocumented as of this encounter Visit Diagnoses Not on filedocumented in this encounter Care Teams Human Intelligence Relationship Specialty Start Date End Date Palmira Lim MD PCP - General 05/08/[address] [facility] [place] [address] documented as of this encounter
--- OUTSIDE RECORDS SUMMARY | 2021-12-08 10:26 | XMS_ITS | Encounter Summary ---
:1999 Author Organization [employer] Address [address] [place] [address] Care Team Providers Name Role Phone Palmira Lim MD Primary Care Provider Reason for Visit Reason Comments Follow-up Encounter Details Date Type Department Care Team Description 06/12/2020 Telephone [facility] Denisha Serna APRN, Follow-up Services-MEDICAL RECORDS FIELD TECHNICIAN [place] [address] [place] [address] [place] [address] [phone] Social History Tobacco Use Types Packs/Day Years [...] encounter Nursing Notes Sujatha Cuevas LPN - 06/12/2020 3:00 PM CDT Spoke to pt and notified her of POC. Pt aware and will call to make appts. Number given. Pt has no questions or concerns at this time. Sujatha Cuevas LPN 06/12/2020, 3:01 PM Sujatha Cuevas LPN - 06/12/2020 2:58 PM CDT ----- Message from Denisha Serna APRN, CLEANER HOUSEKEEPING sent at 06/11/2020 10:41 PM CDT ----- Regarding: call pt Memo Solares, Please call patient to schedule BPP is twice weekly in Radiology from 30 weeks on per MFM recommendation today at appointment. Baby is measuring large and she already has polyhydramnios with her type 1diabetes. Thanks. Pastora ----- Message ----- From: Anita Denis MD Sent: 06/11/2020 10:11 PM CDT To: Denisha Serna APRN, CLEANER HOUSEKEEPING documented in this encounter Plan of Treatment Not on filedocumented as of this encounter Visit Diagnoses Not on filedocumented in this encounter Care Teams Service Restorer Emergency Relationship Specialty Start Date End Date Palmira Lim MD PCP - General 05/08/06 [address] [place] [address] documented as of this encounter
--- OUTSIDE RECORDS SUMMARY | 2021-12-08 10:26 | XMS_ITS | Encounter Summary ---
:1999 Author Organization [employer] Address [address] [place] [address] Care Team Providers Name Role Phone Palmira Lim MD Primary Care Provider Reason for Visit Reason Comments Appt. Work In Request Encounter Details Date Type Department Care Team Description 03/14/2020 Telephone [facility] 3931 Kamila Delgadillo, Appt. Work In Request Maternal MD Medicine [address] [id number] [phone] Social History Tobacco Use Types Packs/Day Years [...] encounter Nursing Notes Twila Chambers RN - 03/19/2020 1:42 PM CST Spoke with patient today to set up Lovenox teaching tomorrow (03/20/20). Pt stated she has picked up her medication and will bring it to her visit. Informed I would call her at 2pm tomorrow (03/20/20) tosee if a video visit would be better or if she will indeed be able to make it to her Lovenox teaching with me at 3pm at [facility]. Pt appeared lethargic on the phone and stated can you actually help me reschedule my appt. 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 Appt was noted to be at 1:50pmand call was placed at 1:35pm. Note routed to Katie from for assistance with scheduling/reminderhelp. RECORDIST Twila Chambers RN - 03/16/2020 12:06 PM CST LVM to schedule Lovenox teaching and MFM consult. Informed to call our nurse line catia. RECORDIST April Clarke RN - 03/15/2020 9:03 AM CST Seen at [facility] 03/09/20, called patient's number per their patient demographics and mother Twila answered phone. Patient has new cell phone and this was given to song writer; demographics updated ([phone]). Attempted to request outside records/search at [facility], No matching patients found RECORDIST Twila Chambers RN - 03/14/2020 10:04 AM CST Called patient to set up Lovenox teaching with MFM RN this week and schedule video consult with MFM MD due to prior history of pulmonary embolism and currently . Unable to leave voicemail prompt stated This number you trying to reach is no longer in service, or has been disconnected. Note routed to primary OB. Note closed. RECORDIST documented in this encounter Plan of Treatment Not on filedocumented as of this encounter Visit Diagnoses Not on filedocumented in this encounter Care Teams Breast Buffer Relationship Specialty Start Date End Date Palmira Lim MD PCP - General 05/08/[address] [place] [address] documented as of this encounter
--- OUTSIDE RECORDS SUMMARY | 2021-12-08 10:26 | XMS_ITS | Encounter Summary ---
:1999 Author Organization [employer] Address [address] [place] [address] Care Team Providers Name Role Phone Palmira Lim MD Primary Care Provider Reason for Visit Reason Comments CONSULT Encounter Details Date Type Department Care Team Description 04/25/2020 Procedure Visit [facility] 3931 Me liz Delgadillo MD CONSULT Maternal Medic ine 3931 [facility] 3931 [place] [id number] [phone] Social History Tobacco Use Types Packs/Day Years [...] encounter Progress Notes Kamila Delgadillo MD - 04/25/2020 10:30 AM CST [facility] ULTRASOUND AND BRIEF CONSULTATION DATE OF VISIT: 04/25/20 IMPRESSIONS: 1) Intrauterine at 21 weeks 3 days gestational age 2) None of the anomalies commonly detected by ultrasound were evident in the detailed anatomicsurvey described above. The echocardiogram appears normal. 3) One marker for aneuploidy seen: left echogenic intracardiac focus 4) biometry is consistent with gestational age. 5) The amniotic fluid volume appeared normal. 6) Normal cervical length 7) No evidence of placenta previa 8) Complex, subamniotic cystic structure measuring [id number] RECOMMENDATIONS: -Please see separate consult note for additional counseling -Monthly growth US starting at 28 weeks -Twice weekly testing at 32 weeks due to type 1 DM (once a week is acceptable during the COVID19 pandemic if DM is well controlled and no other complications arise) -Continue daily baby aspirin for preeclampsia prevention. Stop at delivery Brief consult: In addition to the ultrasound interpretation, the patient was seen for a brief consultation. Nabila is a 19 year old at 21 weeks and 3 days by LMP. This is complicated by pregestational type 1 diabetes. Additional complications include: EIF. I reviewed her OB records including pertinent labs, imaging results, and notes as summarized above. Nabila has no complaints. First, we reviewed the results of the normal anatomy ultrasound and echocardiogram and the finding of an echogenic intracardiac focus. We discussed the significance of an EIF when it is detected in the second trimester. EIF is found in ~3% of normal fetuses but is associated with trisomy 21. In some ethnic populations, the incidence of EIF can be as high as 30%. An isolated EIF in an otherwise normal fetus is highly predictive of euploidy. We reviewed the patient's overall low risk for [id number] based on her low risk aneuploidy screen. We discussed options for definitive testing including amniocentesis. Risks and benefits of amnio were reviewed and the 1/500 procedure loss rate associated with amnio was discussed. The patient is reassured by her low risk aneuploidy screen and declines additional genetic evaluation. The patient was reassured that EIF has no clinical significance outside ofaneuploidy screening and no additional follow up is required for this. Next, we discussed the management of diabetes in . Risks to the fetus/ include an increased risk of miscarriage, malformations (most commonly cardiac anomalies and neural tube defects), growth abnormalities including macrosomia as well as growth restriction, , and sti llbirth. After delivery, the is at risk for hypoglycemia and respiratory distress syndrome. Maternal risks include worsening blood sugar control as well as preeclampsia. Due to the increased risk of preeclampsia a daily baby aspirin is recommended. Nabila's baseline preeclampsia labs were reviewed and found normal. Even with optimal glucose control, there is an increase risk for placental dysfunction, distress, and stillbirth. Most adverse outcomes occur in the setting of IUGR, which usually occurs in the setting of underlying vascular disease or pre eclampsia. Based on these factors, we recommend ultrasound monitoring of growth and amniotic fluid volume every 4 weeks. We also recommend twice weeklyfetal testing starting at 32 weeks (or as early as 28 weeks with poor control). Thank you for your kind referral. We look forward to assisting you with any additional needs. Pleasecall with questions. Moderate complexity problems (type 1DM, EIF) discussed. Data review including prior [facility] consultationnote from 03/30. Moderate risk procedure, amniocentesis, discussed. Follow up ultrasounds ordered. [id number] billed. LESNAKE FARMER documented in this encounter Plan of Treatment Not on filedocumented as of this encounter Visit Diagnoses Diagnosis Pre-existing type 1 diabetes mellitus du ring in second trimester - Primary Echogenic intracardiac focus of fetus on ultrasound documented in this encounter Care Teams Rating Specialist Relationship Specialty Start Date End Date Palmira Lim MD PCP - General 05/08/[address] [place] [address] documented as of this encounter
--- OUTSIDE RECORDS SUMMARY | 2021-12-08 10:26 | XMS_ITS | Encounter Summary ---
:1999 Author Organization [employer] Address [address] [place] [address] Care Team Providers Name Role Phone Palmira Lim MD Primary Care Provider Encounter Details Date Type Department Care Team Description 03/28/2020 Lab Visit [facility] Subclinical hypothyroidism [address] [place] [address] Social History Tobacco Use Types Packs/Day Years [...] documented as of this encounter Progress Notes Lilian Maldonado MBBS - 03/28/2020 3:20 PM CST Thyroid lab indicated under treatment. Change levothyroxine 50 mcg dose intake to 1 tab daily Thu-Thu, and 2 tabs on Thu and Sundays, repeat blood work in 3 weeks. RAL SUPPLY TECHNICIAN SUPERVISOR documented in this encounter Plan of Treatment Not on filedocumented as of this encounter Procedures Procedure Name Priority Date/Time Associated Diagnosis Comme nts TSH, SENSITIVE Routine 03/28/2020 3:16 PM Subclinical Results for this CENTRAL SUPPLY TECHNICIAN SUPERVISOR hypothyroidism procedure are in the results section. documented in this encounter Results (ABNORMAL) TSH (03/28/2020 3:16 PM CENTRAL SUPPLY TECHNICIAN SUPERVISOR) Analysis Performed At Patho logist Time Signature TSH, Sensitive 5.45 (H) 0.30 - 03/28/2020 [facility] 4.50 7:03 PM CENTRAL SUPPLY TECHNICIAN SUPERVISOR LABORATORY uIU/mL Specimen Anatomical Collection Method / Collection Time Recei andrade Time (Source) Location / Volume Laterality Blood Venipuncture / 03/28/2020 3:16 03/28/2020 3:16 Unknown PM CENTRAL SUPPLY TECHNICIAN SUPERVISOR PM CENTRAL SUPPLY TECHNICIAN SUPERVISOR Lilian FINNEGAN LAB_1 Performing Organization Address City/State/ZIP Code Phon e Number [facility] [address] [place] [address] documented in this encounter Visit Diagnoses Diagnosis Subclinical hypothyroidism Other specified acquired hypothyroidism documented in this encounter Care Teams Fig Caprifier Relationship Specialty Start Date End Date Palmira Lim MD PCP - General 05/08/[address] [place], [place] [address] documented as of this encounter
--- OUTSIDE RECORDS SUMMARY | 2021-12-08 10:26 | XMS_ITS | Encounter Summary ---
:1999 Author Organization [facility] Address [address] [place] [address] Care Team Providers Name Role Phone Palmira Lim MD Primary Care Provider Reason for Visit Reason Comments Diabetes Encounter Details Date Type Department Care Team Description 03/09/2020 Telemedicine [place] Sonja Beltran, Type 1 diabe yosi mellitus without complication (HRC) (Primary Dx); Endocrinology HANDWRITING EXPERT, REEL SYSTEM OPERATOR Pre-existing type 1 diabetes mellitus du ring in second trimester; [address] [place] [address] [address]vd [phone] [place] [address] Social History Tobacco Use Types [...] documented as of this encounter Progress Notes Veronica Deras - 03/09/2020 3:30 PM CST 03/07/20 Called lvm re: chart prep VE WHEEL MAKER Shaji Villatoro - 03/09/2020 3:30 PM CST Images from the original note were not included. Pre-Visit Planning for Phone/Video Visit: Diabetes Pre-visit planning completed. Reviewed the following: - Medications (pended refills) NO - Pharmacy - Allergies - Last foot & eye exam - Tobacco/alcohol use - Aspirin NO Statin NO Current Diabetes Medications Novolog- 1 unit per 5 grams plus >140 Tresiba- 32 units once daily VE WHEEL MAKER Sonja Beltran, SANDOVAL, REEL SYSTEM OPERATOR - 03/09/2020 3:30 PM CST March 09, 2020 Chief Complaint: Nabila Castle Daphne a 19 y.o. female is contacted for follow up of Type 1 diabetes in . Pt of Dr. Maldonado. Today's office visit is by video.Total time: 26 min History of Present Illness: Subjective: Diagnosed with diabetes: 2016 Complications:No known chronic microvascular complications of diabetes. A1c 01/17/2020 11.2%. A1c yesterday 6.9% She is unexpectedly . LMP 11/27/2019. Now 14w2d. Pt is using MDI. Back on Dexcom with . Other health issues: ADD. Subclinical hypothyroidism history. Dr. Martin noted a full thyroid on exam when he consulted with her inMay of 2019. Her TSH was 5.15 so she was advised to take 50 mcg of levothyroxine daily. She states she thinks she took it for about a month but then stopped for unknown reasons. TSH on 01/17/2020 when I 1st met her in the was 9.11. FT4 0.6 Admised her to start Levothyroxine 125 mcg daily on 01/17/2020. She states she did not do so. She is not quite sure why. Last eye exam: Over a year ago Foot exam: 06/[address] Martin, normal exam. Social history: Tobacco: reports that she has quit smoking. Her smoking use included cigarettes. She has a 0.25 pack-year smoking history. She has never used smokeless tobacco. 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 Has not had a regular sleep schedule so insulin and food are irregular as well. Tends to eat at 10 pm or [place] and then again at about 2-3am. Sleeps from 7 or 8 am to 1-3 pm. Has another meal between 3-5 pm most days. Since finding out she is , she has been working very hard to count her carbohydrates and take her NovoLog insulin prior to meals. States she knows she needs to eat healthier meal plan. Current Diabetes Treatment Regimen: Tresiba 32 units each night at midnight. States this is easiest to remember.. NL is now more consistently 1/5 grams plus 1/40 over 140 Has been using [employer] to look up foods and count carbs more in the last week. Full med list reviewed in [facility]. No other meds. Objective: Female patient, appears comfortable by video, smiling. She went in multiple rooms to look for any bottles of levothyroxine. She was unable to find any. She states she is not taking it at this time. Glucose Monitoring: Home glucose monitoring: Dexcom data over the last 2 weeks shows an average of 153+/-84. 50% of hertime is in range, 12% low, 2% urgent low. The lows are generally while she is sleeping between about9:00 a.m. and 2:00 p.m.. No severe hypoglycemia. The blood glucose levels are generally rising afterher 1st meal which is her ???breakfast?? at about 3:00 p.m.. Last A1c: Lab Results Component Value Date Hemoglobin A1C 6.9 (H) 03/08/2020 Hemoglobin A1C, POC 9.4 (A) 10/20/2018 Last LDL: Lab Results Component Value Date Cholesterol 163 05/20/2018 Cholesterol/HDL Ratio Screen 3.9 05/20/2018 HDL Cholesterol 42 05/20/2018 Triglycerides 75 05/20/2018 LDL Calculated 106 05/20/2018 Microalbumin: Lab Results Component Value Date Microalbumin, Urine, Random 3.4 01/17/2020 Assessment: Nabila is a 19 y.o. female who was contacted today for Type 1 diabetes mellitus with following diagnoses: Diagnoses and Orders Placed: 1. Type 1 diabetes mellitus without complication (HRC) 2. Pre-existing type 1 diabetes mellitus during in second trimester 3. Subclinical hypothyroidism (HRC) Plan: 1. Decrease Tresiba to 30 units to try to reduce incidence of hypoglycemia while sleeping. 2. Increase NovoLog before her 1st meal of the day which is around 3:00 p.m. to 1 unit for 4 g rather than 1 unit for 5 g. Continue 1 unit for 5 g while at work during the night. 3. Sent a prescription for levothyroxine 50 mcg tablets. Long discussion regarding what the thyroid hormone is, thyroid gland function, TSH meaning. Discussed taking levothyroxine supplementation on anempty stomach if at all possible and why. Patient states understanding. She will start with 50 mcg ta blets once a day on an empty stomach if possible. I will check with Dr. Martin about any different plan. Recheck TSH 4-6 weeks. 4. Follow-up in 2-3 weeks again, call with any questions or concerns. VE WHEEL MAKER documented in this encounter Plan of Treatment Not on filedocumented as of this encounter Visit Diagnoses Diagnosis Type 1 diabetes mellitus without complic ation (HRC) - Primary Type I (juvenile type) diabetes mellitus without mention of complication, not stated as uncontrolled Pre-existing type 1 diabetes mellitus du ring in second trimester Subclinical hypothyroidism Other specified acquired hypothyroidism documented in this encounter Care Teams Fuel Verification Technician Relationship Specialty Start Date End Date Palmira Lim MD PCP - General 05/08/06 [address] [place] [address] documented as of this encounter
--- OUTSIDE RECORDS SUMMARY | 2021-12-08 10:26 | XMS_ITS | Encounter Summary ---
:2000 Author Organization [employer] Address [address] [place] [address] Care Team Providers Name Role Phone Palmira Lim MD Primary Care Provider Reason for Visit Procedure/Equipment (Routine) - Incomplete Specialty Diagnoses / Procedures Referred By Contact Refer red To Contact Diagnoses Pre-existing type 1 diabetes mellitus during in second trimester Kamila Delgadillo MD Procedures MFM US OB US F/U 3931 [place], [place] [address] Referral ID Status Reason Start Date Expiration Date Visits V isits Requested Authorized [id number] Incomplete 05/23/2020 08/22/2021 10 10 Encounter Details Date Type Department Care Team Description 06/11/2020 [facility] Kamila Delgadillo, Pre-e xisting type 1 Procedure 3931 Maternal diabetes mellitus Medicine 3931 [facility] during in 3931 [facility] [address] [place] [id number] Social History Tobacco Use Types Packs/Day Years [...] Name Priority Date/Time Associated Diagnosis Comme nts [facility] OB US F/U Routine 06/11/2020 3:26 PM Pre-existing type 1 Results for this CDT diabetes mellitus procedure are in during in the resu lts second trimester section. documented in this encounter Results [facility] US OB US F/U (06/11/2020 3:26 PM CDT) Anatomical Region Laterality Modality Pelvis Ultrasound Study GA Study Date Study TATE Working TATE (Source) W eight (Method) 29w1d 06/11/2020 08/26/2020 09/07/2020 (Final TATE by 148 0 g (Alysia 1984 (BPD, MD/CNM) HC, AC, FL) )14 81 g (Hadlock 1984 ( AC, FL) )1483 g (Hadloc k 1984 (BPD, AC, FL) )1489 g (Hadlock 1984 (HC, AC, F L) )1886 g (Hadlock 1983 ( AC) )1754 g (Hadlock 1983 ( HC, AC) )1643 g (Shepar d 1981 (BPD, AC) ) Result Name Value Comments GA by US Calc 204 days 204 BPD 7.59 cm 213 HC 28.49 cm 219 AC 27.2 cm 219 FL 5.06 cm 190 HL 4.62 cm FL/BPD 66.67 % FL/AC 18.6 % HC/AC 1.05 CI 73.26 % SATYA Q1 6.83 cm SATYA Q2 4.43 cm SATYA Q3 6.14 cm SATYA Q4 9.04 cm SATYA 26.44 cm FHR 162 bpm BPP UAR - PSV UAR - S/D Ratio UAR - RI UAR - PI MCA - PSV 38.84 cm/s MCA - S/D Ratio 8.56 MCA - PI 2.29 Specimen (Source) Anatomical Location Collection Method / Collectio n Time Received Time / Laterality Volume Impressions 06/11/2020 10:11 PM CDT S: 1) Intrauterine at 27 weeks 3 days gestational age 2) No anomalies noted 3) biometry is consistent with ges tational age. ?? 4) EFW >99%ile and AC >99%ile noted 5) The amniotic fluid volume appeared in creased (mild polyhydramnios, SATYA 26.44 cm, MVP 9.04 cm). 6) No evidence of placenta previa RECOMMENDATIONS: -Please see separate consult note for ad ditional counseling -Schedule routine care appointm ents with primary care provider -Follow up ultrasounds with MFM every 4 weeks (ordered) -Twice weekly testing starting at 30 weeks (OB/Radiology) Narrative 06/11/2020 10:11 PM CDT Patient Name: Nabila Serna ??Attending: Anita Denis MD Patient ??Veterinary Attendant: Jasmine Vick RDMS , Age: 709/02/2000, 19 y.o. ??GA Prior t o Exam: 27w3d LMP: Patient's last menstrual period was 11/27/2019 (exact date). ??GA by Today's US: 29w1d Pregnancies: ??GA TATE: 27w3d Final TATE by /DYLAN Pre- BMI: ?TATE: 09/07/2020 Hx/Indications: Type 1 IDDM Hypothyroid Neg First Tri Screen Hx DKA Hospitalization On baby asa Evaluation Gestation Type johnson Cardiac Activity present Motion normal Amniotic Fluid polyhydramnios Placenta Location posterior Placenta Appearance appears normal Placenta Cord Insertion normal Comments Placenta Appearance Prominent heterogeno us venous odom again seen on side of placenta 2.8x4.0x2.1cm Measurement Value Rank GA BPD 7.59 cm 99% 30w3d HC 28.49 cm > 99% 31w2d AC 27.2 cm > 99% 31w2d FL 5.06 cm 27% 27w1d HL 4.62 cm 5 - 50% ?? FL/BPD 66.67 % < 71% ?? FL/AC 18.6 % < 20% ?? HC/AC 1.05 5% ?? CI 73.26 % 70 - 86% ?? SATYA Q1 6.83 cm ?? SATYA Q2 4.43 cm ?? SATYA Q3 6.14 cm ?? SATYA Q4 9.04 cm ?? SATYA 26.44 cm > 95% ?? FHR 162 bpm ?? Weight: 1,480 g (3 lb 4.2 oz), > 9 9% Middle Cerebral Artery MCA - S/D Ratio MCA - PI MCA - PSV 8.56 2.29 38.84 cm/s, 1.08 MoM ?? Interpretation of Doppler color flow paige ocity mapping of the Middle Cerebral Artery demonstrates: The peak MCA velocity is 38.84cm/s, whic h is less than 1.5 MOM and not suggestive of anemia Head Cranium appears normal Midline Falx appears normal Lateral Ventricle appears normal Cavum Septi Pellucidi appears normal Heart Heart Rhythm regular Situs normal 4 Chamber View appears normal LVOT/AO appears normal RVOT/PA appears normal Abdomen Stomach appears normal Urinary Tract Right Kidney appears normal Left Kidney appears normal Bladder appears normal ?? Maternal Evaluation Cervix Inadequately visualized Uterus No rmal Cervical Length ? Approach N/A Right Ovary Inadequately Vi sualized With Fundal Pressure (cm) N/A ?? Left Ov jean-paul Inadequately Visualized Funneling N/A Right Adnexa Normal Cul-de-sac No fluid seen Left Adnexa Nor mal Impression Kamila Delgadillo MD RAD LISA US documented in this encounter Visit Diagnoses Diagnosis Pre-existing type 1 diabetes mellitus du ring in second trimester documented in this encounter Care Teams Knurling Machine Operator Relationship Specialty Start Date End Date Palmira Lim MD PCP - General 05/08/[address] [place] [address] documented as of this encounter
--- OUTSIDE RECORDS SUMMARY | 2021-12-08 10:26 | XMS_ITS | Encounter Summary ---
:2000 Author Organization [employer] Address [address] [place] [address] Care Team Providers Name Role Phone Palmira Lim MD Primary Care Provider Reason for Visit Reason Comments Forms [facility] Encounter Details Date Type Department Care Team Description 03/29/2020 Telephone [facility] Ying Belle, For ms (sav[facility] Services-SOLE CONFORMING MACHINE OPERATOR [facility]) [address] [facility], [address] [place] [address] [place] [address] [phone] Social History Tobacco Use Types Packs/Day Years [...] encounter Nursing Notes Cristine Hensley MA - 03/29/2020 12:22 PM CST Outside records (38pg) rc'd via fax as M requested, given to FLORENCIO, ([facility]) for review for appt. LE MAKER documented in this encounter Plan of Treatment Not on filedocumented as of this encounter Visit Diagnoses Not on filedocumented in this encounter Care Teams Review Engineer Relationship Specialty Start Date End Date aPlmira Lim MD PCP - General 05/08/06 [address] [address] documented as of this encounter
--- OUTSIDE RECORDS SUMMARY | 2021-12-08 10:26 | XMS_ITS | Encounter Summary ---
:2000 Author Organization [employer] Address [address] [place] [address] Care Team Providers Name Role Phone Palmira Lim MD Primary Care Provider Encounter Details Date Type Department Care Team Description 06/11/2020 Notes/Orders [facility] Denisha Serna, Pre-e xisting type 1 Services-PAPER HANDLER AIRCRAFT MECHANIC ARMAMENT, INSIDE SALES LEAD diabetes mellitus [address] [place] [address] during in [address] [place], [place] [address] (Primary Dx) [address] [phone] Social History Tobacco Use Types Packs/Day Years [...] Primary documented in this encounter Care Teams Electrical Equipment Tester Relationship Specialty Start Date End Date Palmira Lim MD PCP - General 05/08/[address] [place] [address] documented as of this encounter
--- OUTSIDE RECORDS SUMMARY | 2021-12-08 10:26 | XMS_ITS | Encounter Summary ---
:2000 Author Organization [employer] Address [address] [place] [address] Care Team Providers Name Role Phone Palmira Lim MD Primary Care Provider Reason for Visit Reason Comments Nurse Visit Encounter Details Date Type Department Care Team Description 03/20/2020 Procedure Visit [facility] Javid Delgadillo MD Nurse Visit Medicine [address] [address] [place], [place] [phone] (Wo rk) [address] [phone] Social History Tobacco Use Types Packs/Day Years [...] documented as of this encounter Progress Notes Twila Chambers RN - 03/20/2020 3:00 PM CST Pt here today for Lovenox teaching. Pt is Type 1 Diabetic and has given herself injections for years. Instructions on proper administration were discussed and teach back was performed for first injection with RN. Pt demonstrated proper administration and teach back. Do's and don't of use of Lovenox were discussed as well and proper disposal. Pt agrees with daily Lovenox going forward and handout given. Advised to call MFM RN line if questions come up. Pt also set up video visit consultation with MFD for 03/30. ATRIC PSYCHIATRIST documented in this encounter Plan of Treatment Not on filedocumented as of this encounter Visit Diagnoses Diagnosis Maternal pulmonary embolus (PE), history of - Primary Personal history of venous thrombosis an d embolism documented in this encounter Care Teams Form Tamping Machine Operator Relationship Specialty Start Date End Date Palmira Lim MD PCP - General 05/08/[address] [place] [address] documented as of this encounter
--- OUTSIDE RECORDS SUMMARY | 2021-12-08 10:26 | XMS_ITS | Encounter Summary ---
:2000 Author Organization [employer] Address [address] [place] [address] Care Team Providers Name Role Phone Palmira Lim MD Primary Care Provider Reason for Visit Reason Comments Diabetes Encounter Details Date Type Department Care Team Description 03/28/2020 Office Visit Lilian Jamil Type 1 diab etes mellitus complicating , antepartum, second trimester (Primary Dx); Endocrinology M, MBROSE Subclinical hypothyroidism [address] [address] [address] [phone] [place] [address] Social History Tobacco Use Types [...] Sign Reading Time Taken Comments Blood Pressure 112/72 03/28/2020 2:57 PM INSURANCE SALES PRODUCER Pulse 77 03/28/2020 2:57 PM INSURANCE SALES PRODUCER Temperature - - Respiratory Rate - - Oxygen Saturation - - Inhaled Oxygen Concentration - - Weight 76.1 kg (167 lb 12.8 oz) 03/28/2020 2:57 PM INSURANCE SALES PRODUCER Height 162.6 cm (5' 4) 03/28/2020 2:57 PM INSURANCE SALES PRODUCER Body Mass Index 28.8 03/28/2020 2:57 PM INSURANCE SALES PRODUCER documented in this encounter Progress Notes Lilian Maldonado MBBS - 03/28/2020 2:[address] [facility] Department of Endocrinology, Diabetes and Metabolism Clinic Note Name: Nabila Serna Cc: Follow up for T1DM. 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 #1 T1DM: Diagnosed in 2015, no known complications, she has history of non compliance, had a DKA in 03/2018. She is currently using insulin Tresiba 30 units QHS (which is not covered now and wants to change) and insulin Novolog 1 unit per 5 gm CHO with correction, she uses 1 per 4 for her first meal, he correction is 1 per 40 above 120. She is 17 weeks with her first child, is progressing well, US from 03/06/2020, sizewas in concordance with her GA. CGM data for 2 weeks were reviewed, average glucose was 135, SD 68, GMI 6.5. 8% >250, 19%181-250, 55% in range (70-180), 9 <70 and 9<54. He has a trend of post meal hyperglycemia due to not waiting 15 min after taking her insulin. A1C today was 6.6. She is taking levothyroxine 50 mcg daily for subclinical hypothyroidism. No history of hypoglycemia unawareness. No peripheral neuropathy symptoms, Creatinine from 01/2020 was normal and had normal urine microalbumin, BP today was 112/72. ROS: A 3 point ROS was done, and is negative unless specified otherwise in the HPI. Medications: medication list was reviewed and updated on the EMR. PMHx: Past Medical History: Diagnosis Date ??? ADD (attention deficit disorder) ??? Chlamydia (HRC) ??? DKA (diabetic ketoacidoses) (HRC) 2018 ??? Herpes genitalia (HRC) ??? History of tobacco use ??? Hypothyroid (HRC) ??? Pulmonary embolus (HRC) 2018 During DKA hospitalization, smoking / Nexplanon control used ??? Type 1 diabetes mellitus without complication (HRC) 05/11/2018 Dx 2016 FHx: Family History Problem Relation Age of Onset ??? Cancer, Cervical Mother ??? No Known Problems Father Unaware of biological dads PMH ??? Cataract Negative Family History ??? Glaucoma Negative Family History ??? Macular Degeneration Negative Family History ??? Retinal Detachment Negative Family History ??? Amblyopia/Strabismus Negative Family History SHx: Social History Tobacco Use ??? Smoking status: Former Smoker Packs/day: 0.25 Years: 1.00 Pack years: 0.25 Types: Cigarettes ??? Smokeless tobacco: Never Used Substance Use Topics ??? Alcohol use: Not Currently Comment: on ocass ??? Drug use: Never Physical Examination: Vitals: BP 112/72 (BP Location: Left Arm, BP Cuff Size: Large) Pulse 77 Ht 5' 4 (1.626 m) Wt 167 lb 12.8 oz (76.1 kg) LMP 11/27/2019 (Exact Date) BMI 28.80 kg/m?? General: The patient is alert and oriented, no acute distress. Labs: Reviewed and summarized in the HPI. Assessment and Plan: Nabila Serna is a 19 y.o. female: #1 T1DM: Better controlled, no triopathy, complicated by . A1C 6.6%. Counseled the patient about the importance of DM control and grave consequences of uncontrolled DM. Reviewed glycemic targets in . She needs extensive education, I will refer her to the ID[facility] for further teaching. Change Tresiba to Lantus 15 units BID. Continue Novolog 1 per 5, using 1 per 40 above 120 for correction, she needs to do that before each meal. Use DEXCOM. RTC in 6 weeks with me. #2 Hypothyroidism: Continue levothyroxine 50 mcg daily, repeat TSH today. KAIN Bruce Dining Services Manager RANCE SALES PRODUCER Shaji Villatoro - 03/28/2020 2:45 PM CST Images from the original note were not included. RANCE SALES PRODUCER documented in this encounter Plan of Treatment Not on filedocumented as of this encounter Procedures Procedure Name Priority Date/Time Associated Diagnosis Comme nts POCT GLYCOSYLATED Routine 03/28/2020 3:10 PM Type 1 diabetes R esults for this HEMOGLOBIN (HGB A1C) INSURANCE SALES PRODUCER mellitus procedu re are in complicating the results , section. antepartum, second trimester documented in this encounter Results (ABNORMAL) TSH (03/28/2020 3:16 PM INSURANCE SALES PRODUCER) Analysis Performed At Patho logist Time Signature TSH, Sensitive 5.45 (H) 0.30 - 03/28/2020 [facility] 4.50 7:03 PM INSURANCE SALES PRODUCER LABOR[facility]ORY uIU/mL Specimen Anatomical Collection Method / Collection Time Recei andrade Time (Source) Location / Volume Laterality Blood Venipuncture / 03/28/2020 3:16 03/28/2020 3:16 Unknown PM INSURANCE SALES PRODUCER PM INSURANCE SALES PRODUCER Lilian FINNEGAN [facility]_1 Performing Organization Address City/State/ZIP Code Phon e Number [facility] [address] [place] [address] (ABNORMAL) POCT glycosylated hemoglobin (Hb A1C) (03/28/2020 3:10 PM INSURANCE SALES PRODUCER) P athologist Signature Hemoglobin A1C 6.6 (A) 5.6 % POCT (Rapid) Cartridge Lot# [id number] POCT Specimen (Source) Anatomical Collection Method Collection Time Re ceived Time Location / / Volume Laterality Blood 03/28/2020 3:10 PM INSURANCE SALES PRODUCER Lilian FINNEGAN ET POINT OF CARE TEST ENTER/ EDIT ORDERABLES Performing Organization Address City/[facility]/ZIP [facility] Phon e Number POCT documented in this encounter Visit Diagnoses Diagnosis Type 1 diabetes mellitus complicating pr egnancy, antepartum, second trimester - Primary Subclinical hypothyroidism Other specified acquired hypothyroidism documented in this encounter Care Teams Electronic Heat Seal Operator Relationship Specialty Start Date End Date Palmira Lim MD PCP - General 05/08/[address] [place] [address] documented as of this encounter
--- OUTSIDE RECORDS SUMMARY | 2021-12-08 10:26 | XMS_ITS | Encounter Summary ---
:2000 Author Organization [employer] Address [address] [place] [address] Care Team Providers Name Role Phone Palmira Lim MD Primary Care Provider Reason for Visit Reason Comments Future Appointments Encounter Details Date Type Department Care Team Description 03/19/2020 Telephone [facility] O'Nabila Jordan ppointments Services-PAVING CONTRACTOR MD Maricruz [address] [place] [address] [address] [place], [place] [address] [phone] Social History Tobacco Use Types Packs/Day Years [...] as of this encounter Nursing Notes Twila Suarez - 03/19/2020 1:53 PM CST Patient canceled appointment for the afternoon and rescheduled for 04/02/2020. This RN called patient to see if can reschedule sooner than 04/02. Per patient does not have any difficulties with transportation and understands importance of being seen regularly during . States was just really tired today, and just woke up, therefore was unable to make it to morning appointment and appointment scheduled for 1:50pm. Rescheduled appointment for 03/26/2020 at 3:20 pm. Patientstates that time will work best and states will come to appointment. ESSING SUPERVISOR Twila Suarez - 03/19/2020 10:13 AM CST Received message from provider regarding patient missing appointment this AM. 15.5 weeks with T1DM and multiple other co morbidities. Reviewed importance of routine visits. Patient requesting appointment this afternoon. Appointment scheduled. Future Appointments Provider Department Center 03/19/2020 1:50 PM Pratibha Patel DO [facility]-PAVING CONTRACTOR [facility] FR 03/28/2020 2:45 PM Lilian Maldonado MBBS [facility] 05/16/2020 3:15 PM Lilian Maldonado MBBS [facility] ESSING SUPERVISOR documented in this encounter Plan of Treatment Not on filedocumented as of this encounter Visit Diagnoses Not on filedocumented in this encounter Care Teams Academic Affairs Assistant Relationship Specialty Start Date End Date Palmira Lim MD PCP - General 05/08/[address] [place] [address] documented as of this encounter
--- OUTSIDE RECORDS SUMMARY | 2021-12-08 10:26 | XMS_ITS | Encounter Summary ---
:1999 Author Organization [employer] [facility] Address [address] [place] [address] Care Team Providers Name Role Phone Palmira Lim MD Primary Care Provider Encounter Details Date Type Department Care Team Description 03/13/2020 Orders Only [facility] O'Nabila Jordan Supervis ion of other high risk , antepartum (Primary Dx); Services-KILN REMOVER MD Maricruz Pre-existing type 1 diabetes mellitus du ring in second trimester; [address] [facility], [id number] [place] [address] DR Mason bryant of pulmonary embolism [address] [place] [address] [phone] (Wo rk) Social History Tobacco Use Types [...] as of this encounter Patient Instructions Patient Nabila Mcgrath MD - 03/13/2020 10:52 AM VOICE OVER ARTIST Images from the original note were not included. Enoxaparin (Lovenox): Care Instructions Your Care Instructions Enoxaparin (Lovenox) is an anticoagulant medicine. It is one of a class of anticoagulants called lowmolecular weight heparin. Many people call these medicines blood thinners. They don't actually thin the blood, but they increase the time it takes a blood clot to form. This reduces the chance of a blood clot in the leg veins (deep vein thrombosis) or in the lungs (pulmonary embolism). Enoxaparin is a shot (injection). You or someone caring for you will inject it once or twice a day. Most people need shots for 5 to 10 days, but in some cases it can be longer. Your doctor will tell you how long you need to have the shots. Enoxaparin is used to: ?? Treat deep vein thrombosis (DVT), which is a blood clot in the legs, pelvis, or arms. ?? Reduce the chance of getting blood clots after certain surgeries. For example, you may take enoxaparin after knee or hip replacement surgery. ?? Reduce the chance of getting blood clots in people who are likely to get them and who are not active for a long period of time. For example, you may need enoxaparin if you need to stay in bed for a long time because of a health problem. ?? Reduce the chance of blood clots when another blood thinner is stopped for a short time. For example, if you take warfarin and need surgery, your doctor may ask you to stop taking warfarin for a short time before the surgery. If you have a high risk of blood clots during this time, you may take enoxaparin before the surgery. After the surgery, your doctor will tell you when it is safe to start taking warfarin again. This is called bridge therapy. Follow-up care is a scott part of your treatment and safety. Be sure to make and go to all appointments, and call your doctor if you are having problems. It's also a good idea to know your test results and keep a list of the medicines you take. How can you care for yourself at home? How to inject enoxaparin You will get a prescription for prefilled syringes. Inject the medicine at the same time every day unless your doctor gives you other instructions. 1. Wash and dry your hands. 2. Sit or lie in a position that lets you see your belly. 3. Clean the injection site with an alcohol pad or swab, and let it dry. Choose a site on the right or left side of your belly, at least 2 inches from your belly button. Change the site each time you inject the medicine. 4. Remove the needle cap by pulling it straight off. Don't twist it. 5. Hold the syringe like a pencil in one hand. With the other hand, pinch an area of the injection site skin. You should have a fold in the skin. 6. Insert the entire needle straight down into the fold of skin. Don't insert the needle at an angle. 7. Press the plunger with your thumb until the syringe is empty. 8. Pull the needle straight out and let go of the skin. 9. Point the needle away from you and press down on the plunger. The needle will be covered. Take precautions ?? Don't rub the injection site. This could cause bruising. ?? Don't push air bubbles out of the syringe unless your doctor tells you to. Each syringe comes with air bubbles. ?? Don't stop taking enoxaparin without talking to your doctor. ?? Be sure you get instructions about how to take your medicine safely. Blood thinners can cause serious bleeding problems. ?? Talk to your doctor before you take any prescription medicines, urej-zea-ltkhhlh medicines, antibiotics, vitamins, or herbal products. ?? Don't take the following medicines unless your doctor says it's okay: ? Aspirin, products like aspirin (salicylates), or products that contain aspirin ? Nonsteroidal anti-inflammatory drugs (NSAIDs), such as ibuprofen (Advil, Motrin) and naproxen (Aleve) ?? Store enoxaparin at room temperature. Don't put it in the refrigerator or freezer. When should you call for help? Call 911 anytime you think you may need emergency care. For example, call if: ? You passed out (lost consciousness). ? You have signs of severe bleeding, such as: ? A severe headache that is different from past headaches. ? Vomiting blood or what looks like coffee grounds. ? Passing maroon or very bloody stools. ?? Call your doctor now or seek immediate medical care if: ? You have unexpected bleeding, including: ? Blood in stools or black stools that look like tar. ? Blood in your urine. ? Bruises or blood spots under the skin. ? You feel dizzy or lightheaded. ??Watch closely for changes in your health, and be sure to contact your doctor if: ? You do not get better as expected. Where can you learn more? 1. Go to https://[employer]/KeyOwner or [employer]/Wooop. 2. Enter P266 in the search box. Current as of: February 13, 2019?Content Version: 12.4 ?? 8098-1683 [employer]. Care instructions adapted under license by your healthcare professional. If you have questions abouta medical condition or this instruction, always ask your healthcare professional. [employer] disclaims any warranty or liability for your use of this information. E OVER ARTIST documented in this encounter Plan of Treatment Not on filedocumented as of this encounter Visit Diagnoses Diagnosis Supervision of other high risk , antepartum - Primary Pre-existing type 1 diabetes mellitus du ring in second trimester History of pulmonary embolism Personal history of pulmonary embolism documented in this encounter Care Teams Explosive Operator Bomb Relationship Specialty Start Date End Date Palmira Lim MD PCP - General 05/08/06 [address] [address] documented as of this encounter
--- OUTSIDE RECORDS SUMMARY | 2021-12-08 10:26 | XMS_ITS | Encounter Summary ---
:1999 Author Organization [employer] Address [address] [place] [address] Care Team Providers Name Role Phone Palmira Lim MD Primary Care Provider Reason for Visit Reason Comments Diabetes Encounter Details Date Type Department Care Team Description 05/16/2020 Office Visit Lilian Jamil Type 1 diab etes mellitus complicating , antepartum, second trimester (Primary Dx); Endocrinology M, MBROSE Subclinical hypothyroidism; [address] Pre-existing type 1 diabetes mellitus during in second [place] [address] [facility] [phone] [place], [place] [id number] Social History Tobacco Use Types Packs/Day Years [...] Sign Reading Time Taken Comments Blood Pressure 136/79 05/16/2020 3:12 PM CDT Pulse 112 05/16/2020 3:12 PM CDT Temperature - - Respiratory Rate - - Oxygen Saturation - - Inhaled Oxygen Concentration - - Weight 84.3 kg (185 lb 14.4 oz) 05/16/2020 3:12 PM CDT Height 162.6 cm (5' 4) 05/16/2020 3:12 PM CDT Body Mass Index 31.91 05/16/2020 3:12 PM CDT documented in this encounter Progress Notes Lilian Maldonado MBBS - 05/16/2020 3:15 PM CDT [facility] Department of Endocrinology, Diabetes and Metabolism Clinic Note Name: Nabila Serna Cc: Follow up for T1DM. 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 #1 T1DM: Diagnosed in 2015, no known complications, she has history of non compliance, had a DKA in 03/2018. She is currently using insulin Lantus 38 units QHS and insulin Novolog 1 unit per 3 gm CHO plus correction 1 per 30 above 120. She is 23 weeks with her first child, is progressing well, US from 04/2020, weight was 72%. She uses Dexcom, CGM data for 2 weeks were reviewed, average glucose was 166, SD 66, GMI 7.3. 10% >250, 36%181-250, 49% in range (70-180), 4 %<70 and 1%<54. Glucose tracing indicates a trend of overnight hyperglycemia and post meal hyperglycemia when she iseating large carb meal. A1C today was 6.7%. She is taking levothyroxine 50 mcg daily Thu-Thu, and 100 mcg on Thu and Sundays for subclinical hypothyroidism. No history of hypoglycemia unawareness. No peripheral neuropathy symptoms, Creatinine from 01/2020 was normal and had normal urine microalbumin, BP today was 136/79. Physical Examination: Vitals: BP 136/79 (BP Location: Right Arm, BP Cuff Size: Regular) Pulse (!) 112 Ht 5' 4 (1.626 m) Wt 185 lb 14.4 oz (84.3 kg) LMP 11/27/2019 (Exact Date) BMI 31.91 kg/m?? General: The patient is alert and oriented, no acute distress. Labs: Reviewed and summarized in the HPI. Assessment and Plan: Nabila Serna is a 19 y.o. female: #1 T1DM: Better controlled, no triopathy, complicated by . A1C6.7%. Counseled the patient about the importance of DM control and grave consequences of uncontrolled DM. Reviewed glycemic targets in . Change lantus to 40 units QHS. Continue Novolog 1 per 3 , using 1 per 30 above 120 for correction, she needs to do that before eachmeal. Limit carbs to less than 60 gm per meal. Use DEXCOM. Upload in 1 week. RTC in 4 weeks with me. #2 Hypothyroidism: Continue levothyroxine 50 mcg daily Thu-Thu, and 100 mcg Thu and Sundays, repeat TSH today. KAIN Bruce Wheel Assembler Shaji Villatoro - 05/16/2020 3:15 PM CDT Images from the original note were not included. documented in this encounter Plan of Treatment Not on filedocumented as of this encounter Procedures Procedure Name Priority Date/Time Associated Diagnosis Comme nts POCT GLYCOSYLATED Routine 05/16/2020 3:41 PM Type 1 diabetes R esults for this HEMOGLOBIN (HGB A1C) CDT mellitus procedu re are in complicating the results , section. antepartum, second trimester Subclinical hypothyroidism Pre-existing type 1 diabetes mellitus during in second trimester documented in this encounter Results (ABNORMAL) POCT glycosylated hemoglobin (Hb A1C) (05/16/2020 3:41 PM CDT) P athologist Signature Hemoglobin A1C 6.7 (A) 5.6 % POCT (Rapid) Cartridge Lot# [id number] POCT Specimen (Source) Anatomical Collection Method Collection Time Re ceived Time Location / / Volume Laterality Blood 05/16/2020 3:41 PM CDT Lilian FINNEGAN ET POINT OF CARE TEST ENTER/ EDIT ORDERABLES Performing Organization Address City/State/ZIP Code Phon e Number POCT TSH (05/16/2020 3:38 PM CDT) athologist Signature TSH, Sensitive 2.91 0.30 - 05/16/2020 [facility] 4.50 7:04 PM CDT LABORATORY uIU/mL Specimen Anatomical Collection Method / Collection Time Recei andrade Time (Source) Location / Volume Laterality Blood Venipuncture / 05/16/2020 3:38 05/16/2020 3:38 Unknown PM CDT PM CDT Lilian FINNEGAN LAB_1 Performing Organization Address City/[facility]/ZIP Code Phon e Number [facility] [address] [place] [address] documented in this encounter Visit Diagnoses Diagnosis Type 1 diabetes mellitus complicating pr egnancy, antepartum, second trimester - Primary Subclinical hypothyroidism Other specified acquired hypothyroidism Pre-existing type 1 diabetes mellitus du ring in second trimester documented in this encounter Care Teams Plc Engineer Relationship Specialty Start Date End Date Palmira Lim MD PCP - General 05/08/[address] [place], [place] [address] documented as of this encounter
--- OUTSIDE RECORDS SUMMARY | 2021-12-08 10:26 | XMS_ITS | Encounter Summary ---
:1999 Author Organization [employer] Address [address] [place] [address] Care Team Providers Name Role Phone Palmira Lim MD Primary Care Provider Reason for Referral Procedure/Equipment (Routine) - Incomplete Specialty Diagnoses / Procedures Referred By Contact Refer red To Contact Diagnoses Pre-existing type 1 diabetes mellitus during in second trimester Kamila Delgadillo MD Procedures MFM US OB US F/U [address] [employer], [place] [address] Referral ID Status Reason Start Date Expiration Date Visits V isits Requested Authorized [id number] Incomplete 05/23/2020 08/22/2021 10 10 GHT CHECKER Encounter Details Date Type Department Care Team Description 04/25/2020 Notes/Orders [facility] 3931 Kamila Delgadillo, Pre-existing type 1 Maternal MD diabetes mellitus Medicine [address] [place] [address] [place] [address] [place] [address] second trimester [place], [place] (Primary Dx) [place] [address] [id number] [phone] Social History Tobacco Use Types Packs/Day Years [...] on filedocumented as of this encounter Results MFM US OB US F/U (06/11/2020 3:26 PM CDT) Anatomical Region Laterality Modality Pelvis Ultrasound Study GA Study Date Study TATE Working TATE (Source) W eight (Method) 29w1d 06/11/2020 08/26/2020 09/07/2020 (Final TATE by 148 0 g (Alysia 1984 (BPD, MD/CNJossy) HC, AC, [place]) )14 81 g (Hadlock 1985 ( AC, FL) )1483 g (Hadloc k 1984 (BPD, AC, [place]) )1489 g (Hadlock 1984 (HC, AC, F L) )1886 g (Hadlock 1983 ( AC) )1754 g (Hadlock 1984 ( HC, AC) )1643 g (Shepar d [...] Nabila Serna ??Attending: Anita Denis MD Patient ??Dental Equipment Installer And Servicer: Jasmine Vick RDMS , Age: 709/02/2000, 19 y.o. ??GA Prior t o Exam: 27w3d LMP: Patient's last menstrual period was 11/27/2019 (exact date). ??GA by Today's US: 29w1d Pregnancies: ??GA TATE: 27w3d Final TATE by MD/DYLAN Pre- BMI: ?TATE: 09/07/2020 Hx/Indications: Type 1 [...] Adnexa Nor mal Impression Kamila Delgadillo MD [facility] documented in this encounter Visit Diagnoses Diagnosis Pre-existing type 1 diabetes mellitus du ring in second trimester - Primary Pre-existing type 1 diabetes mellitus du ring in second trimester documented in this encounter Care Teams Analyst Programmer Relationship Specialty Start Date End Date Palmira Lim MD PCP - General 05/08/06 [address] [place] [address] documented as of this encounter
--- OUTSIDE RECORDS SUMMARY | 2021-12-08 10:26 | XMS_ITS | Encounter Summary ---
:1999 Author Organization [employer] Address [address] [place] [address] Care Team Providers Name Role Phone Palmira Lim MD Primary Care Provider Reason for Visit Reason Comments Routine Visit 20w 5d Encounter Details Date Type Department Care Team Description 04/23/2020 Routine [facility] Ying Belle, Routine Services-DISHTANK OPERATOR Visit (20w 5d) [address], [address] [id number] Social History Tobacco Use Types Packs/Day Years [...] Sign Reading Time Taken Comments Blood Pressure 119/69 04/23/2020 3:05 PM SUPERVISOR METALIZING Pulse 90 04/23/2020 3:05 PM SUPERVISOR METALIZING Temperature - - Respiratory Rate - - Oxygen Saturation - - Inhaled Oxygen Concentration - - Weight 79.8 kg (176 lb) 04/23/2020 3:05 PM SUPERVISOR METALIZING Height - - Body Mass Index 30.21 03/28/2020 2:57 PM SUPERVISOR METALIZING documented in this encounter Progress Notes Ying Belle MD - 04/23/2020 3:00 PM CST [facility] CC: Follow-up care 20 5/7 weeks T1DM Hypothyroid Hx HSV 2 Low dose asa S: Nabila Seran is feeling well today. Has level 2 04/25. She denies loss of fluid, changes in vaginal discharge or vaginal bleeding. Reports good movement. Says glucose levels good. If 200s at bedtime, does not have night time lows. If lower BG at bedtime, has night time lows. Working with endocrinology. Works at [employer] precautions reviewed. complications: Patient Active Problem List Diagnosis Date Noted ??? Supervision of other high risk , antepartum 03/08/2020 ??? History of pulmonary embolism 03/08/2020 ??? Maternal thyroid dysfunction, antepartum 03/08/2020 ??? Constipation 03/08/2020 ??? Pre-existing type 1 diabetes mellitus during in second trimester 03/08/2020 ??? Hypothyroid (HRC) ??? Herpes genitalia (HRC) ??? Attention deficit hyperactivity disorder (ADHD) 10/30/2008 O: Filed Vitals: 04/23/20 1505 BP: 119/69 Pulse: 90 Weight: 176 lb (79.8 kg) Gen: alert, oriented, NAD See OB flowsheet. A/P: 19 y.o. at 21w1d by dates and 8 week sono, presenting for follow-up care. Care: - OB labs reviewed: A positive, Rubella immune , Heb B sAG neg - Genetics: NT normal, level 2 this week - Anatomy ultrasound: level 2 this week - Rh positive, Rhogam not indicated - 28 weeks CBC, RPR and Tdap - S/p flu03/08/20 -Tdap at 28 weeks - GBS at 36 weeks - Feed: breast - Contraception: unsure, ?Mirena Type 1 DM -follows in endocrinology -MFM level 2 this week - Baseline HELLP labs 03/08/2020: PCR 0.09, LFTs normal, plts 287k - Opthalmology appointments in 1st and 3rd trimester - PPx baby Asa from 12-16 weeks through term - Primary Bun Panner:?Khoi Quevedo Bun Panner, Dr. Maldonado.?Highly advised that patient keep all appointments as scheduled. - Growth US: Every 4 weeks starting at 28 weeks - testing: BPP weekly at 32 weeks for well controlled, 28 weeks for poorly controlled - Timing of delivery: Between 34b8c-33c5x for well controlled, 52a5d-62x4l for poorly controlled?? Hypothyroid. --subclinical. Synthroid 50 mcg daily +2 on weekends, per endo. TSH 3.21 on 03/06/2020 ?? General herpes. ?? -Call for outbreaks and will order Valtrex. ??Plan for Valtrex or acyclovir 36 weeks until delivery. Follow-up in clinic in 4 weeks. Ying Belle MD 4:55 PM 04/23/2020 Ying Belle MD 04/23/2020 4:55 PM RVISOR METALIZING documented in this encounter Plan of Treatment Not on filedocumented as of this encounter Visit Diagnoses Diagnosis Supervision of other high risk , antepartum - Primary History of pulmonary embolism Personal history of pulmonary embolism Constipation, unspecified constipation t ype Pre-existing type 1 diabetes mellitus du ring in second trimester Maternal thyroid dysfunction, antepartum (HRC) Thyroid dysfunction, antepartum Hypothyroidism, unspecified type (HRC) Genital herpes simplex, unspecified site (HRC) Attention deficit hyperactivity disorder (ADHD), unspecified ADHD type (HRC) documented in this encounter Care Teams Jockey Room Custodian Relationship Specialty Start Date End Date Palmira Lim MD PCP - General 05/08/[address] [place] [address] documented as of this encounter
--- OUTSIDE RECORDS SUMMARY | 2021-12-08 10:26 | XMS_ITS | Encounter Summary ---
:1999 Author Organization [employer] Address [address] [place] [address] Care Team Providers Name Role Phone Palmira Lim MD Primary Care Provider Reason for Visit Reason Comments Diabetes Eye Exam Encounter Details Date Type Department Care Team Description 06/07/2020 Office Visit Satish Enrique, Diabetic eye exam (HRC) (Primary Dx); Ophthalmology OD Type 1 diabetes mellitus without retinop athy (HRC); [address] [address] [place] Myopia of both eyes; [place] [address] [place], [place] Regular astigmatism of left eye [phone] (Wo rk) Social History Tobacco Use Types [...] documented as of this encounter Progress Notes Satish Carranza, OD - 06/07/2020 7:50 AM CDT REVIEW: ?? Nabila presents for a complete diabetes related eye health exam. Reviewed HPI notes, medical history, medications, and allergies GENERAL MEDICAL OBSERVATION: ?? Patient alert, oriented, pleasant. No obvious physical distress ASSESSMENT: ?? Diabetic eye exam - essentially, no retinopathy or any ocular condition relative to diabetes mellitus type 1 ?? Minimal to mild corneal guttata without striae or edema ?? Myopia of both eyes essentially unchanged ?? Regular astigmatism of left eye, minor decrease. Right eye prior astigmatism no reduced to simplespherical correction PLAN: ??? Discussed findings with patient ??? Watch for changes ??? Spectacle Rx given - change optional ?? Next recommended diabetes related eye examination in 1 year or sooner as needed documented in this encounter Plan of Treatment Not on filedocumented as of this encounter Visit Diagnoses Diagnosis Diabetic eye exam (HRC) - Primary Examination of eyes and vision Type 1 diabetes mellitus without retinop athy (HRC) Myopia of both eyes Myopia Regular astigmatism of left eye Regular astigmatism documented in this encounter Care Teams Shaving Machine Operator Relationship Specialty Start Date End Date Palmira Lim MD PCP - General 05/08/[address] [place] [address] documented as of this encounter
--- OUTSIDE RECORDS SUMMARY | 2021-12-08 10:26 | XMS_ITS | Encounter Summary ---
:1999 Author Organization [employer] Address [address] [place] [address] Care Team Providers Name Role Phone Palmira Lim MD Primary Care Provider Reason for Visit Reason Comments LAB RESULTS Encounter Details Date Type Department Care Team Description 03/29/[address] [facility] [address] Sly Maldonado MBBS LAB RESULTS Endocrinology [address] [place] [address] [place], [place] [address] [phone] Social History Tobacco Use Types Packs/Day Years [...] as of this encounter Nursing Notes Tiffany Huffman, ANDRE - 03/30/2020 3:57 PM CST Called pt; gave her the results and dose change and follow up lab recommendations below. Pt agreeable to plan. CLERK Aleida Pace RN - 03/29/2020 9:08 AM CST Left voicemail for Pt. To call back for message below. CLERK Aleida Pace RN - 03/29/2020 9:08 AM CST ----- Message from KAIN Bruce sent at 03/29/2020 8:01 AM WARD CLERK ----- Thyroid lab indicated under treatment. Change levothyroxine 50 mcg dose intake to 1 tab daily Thu-Thu, and 2 tabs on Thu and Sundays, repeat blood work in 3 weeks. CLERK documented in this encounter Plan of Treatment Not on filedocumented as of this encounter Visit Diagnoses Not on filedocumented in this encounter Care Teams Engineering And Scientific Programmer Relationship Specialty Start Date End Date Palmira Lim MD PCP - General 05/08/[address] [place] [address] documented as of this encounter
--- OUTSIDE RECORDS SUMMARY | 2021-12-08 10:26 | XMS_ITS | Encounter Summary ---
:2000 Author Organization [employer] Address [address] [place] [address] Care Team Providers Name Role Phone Palmira Lim MD Primary Care Provider Encounter Details Date Type Department Care Team Description 05/16/2020 Lab Visit [facility] Type 1 diabetes mellitus com plicating , antepartum, second trimester; [address] [facility] Subclinical hypothyroidism; [place] [address] Pre-existing type 1 diabetes mellitus during in second trimester [phone] Social History Tobacco Use Types Packs/Day Years [...] Progress Notes Lilian Maldonado MBBS - 05/16/2020 3:40 PM CDT TSH is better, continue current thyroid hormone dose. documented in this encounter Plan of Treatment Not on filedocumented as of this encounter Procedures Procedure Name Priority Date/Time Associated Diagnosis Comme nts TSH, SENSITIVE Routine 05/16/2020 3:38 PM Type 1 diabetes Resu lts for this CDT mellitus complicating proced ure are in , antepartum, the r esults second trimester section. Subclinical hypothyroidism Pre-existing type 1 diabetes mellitus during in second trimester documented in this encounter Results TSH (05/16/2020 3:38 PM CDT) athologist Signature TSH, Sensitive 2.91 0.30 - 05/16/2020 [facility] 4.50 7:04 PM CDT LABORATORY uIU/mL Specimen Anatomical Collection Method / Collection Time Recei andrade Time (Source) Location / Volume Laterality Blood Venipuncture / 05/16/2020 3:38 05/16/2020 3:38 Unknown PM CDT PM CDT Lilian FINNEGAN LAB_1 Performing Organization Address City/State/ZIP Code Phon e Number [facility] [address] [place] [address] documented in this encounter Visit Diagnoses Diagnosis Type 1 diabetes mellitus complicating pr egnancy, antepartum, second trimester Subclinical hypothyroidism Other specified acquired hypothyroidism Pre-existing type 1 diabetes mellitus du ring in second trimester documented in this encounter Care Teams Refrigeration Installer Relationship Specialty Start Date End Date Palmira Lim MD PCP - General 05/08/06 [address] [place], [place] [id number] documented as of this encounter
--- OUTSIDE RECORDS SUMMARY | 2021-12-08 10:26 | XMS_ITS | Encounter Summary ---
:2000 Author Organization [employer] Address [address] [place] [address] Care Team Providers Name Role Phone Palmira Lim MD Primary Care Provider Reason for Visit Reason Comments Routine Visit Encounter Details Date Type Department Care Team Description 06/22/2020 Routine [facility] Trever Belle MD [address] [place] [address] Routine Services-CELL OPERATION SUPERVISOR Denisha Serna, SHINGLE WEAVER, BODY SHOP WORKER [address] [place] [address] Visit [address] [facility], [facility] [address] [place] [address] Social History Tobacco Use Types Packs/Day Years [...] Sign Reading Time Taken Comments Blood Pressure 120/65 06/22/2020 11:40 AM CDT Pulse 99 06/22/2020 11:39 AM CDT Temperature - - Respiratory Rate - - Oxygen Saturation - - Inhaled Oxygen Concentration - - Weight 90.3 kg (199 lb) 06/22/2020 11:39 AM CDT Height - - Body Mass Index 34.16 06/13/2020 1:56 PM CDT documented in this encounter Progress Notes Denisha Serna, SHINGLE WEAVER, BODY SHOP WORKER - 06/22/2020 11:30 AM CDT [facility] CC: Follow-up care S: Nabila Serna is feeling well today. She is accompanied by FOB. Her last appointment was at 20 weeks. Denies LOF or vaginal bleeding. No cramping. Positive movement. We reviewed the following [facility] ultrasounds and plans noted below. 04/25 level 2 ultrasound IMPRESSIONS: 1) Intrauterine at 21 weeks 3 days gestational age 2) None of the anomalies commonly detected by ultrasound were evident in the detailed anatomicsurvey described above. The echocardiogram appears normal. 3) One marker for aneuploidy seen: left echogenic intracardiac focus 4) biometry is consistent with gestational age. ?? 5) The amniotic fluid volume appeared normal. 6) Normal cervical length 7) No evidence of placenta previa 8) Complex, subamniotic cystic structure measuring [id number] ?? RECOMMENDATIONS: -Please see separate consult note for additional counseling -Monthly growth US starting at 28 weeks -Twice weekly testing at 32 weeks due to type 1 DM (once a week is acceptable during the COVID19 pandemic if DM is well controlled and no other complications arise) -Continue daily baby aspirin for preeclampsia prevention. Stop at delivery 06/11/2020 [facility] growth ultrasound IMPRESSIONS: 1) Intrauterine at 27 weeks 3 days gestational age 2) No anomalies noted 3) biometry is consistent with gestational age. ?? 4) EFW >99%ile and AC >99%ile noted 5) The amniotic fluid volume appeared increased (mild polyhydramnios, SATYA 26.44 cm, MVP 9.04 cm). 6) No evidence of placenta previa ?? RECOMMENDATIONS: -Please see separate consult note for additional counseling -Schedule routine care appointments with primary care provider -Follow up ultrasounds with MFM every 4 weeks (ordered) -Twice weekly testing starting at 30 weeks (OB/Radiology We reviewed type 1 diabetes and hypothyroid management by Vp Of Digital Marketing, Dr. Maldonado. 06/13 endocrine appointment #1 T1DM: Diagnosed in 2015, no known complications, she has history of non compliance, had a DKA in 03/2018. She is currently using insulin Lantus 46 units QHS and insulin Novolog 1 unit per 2 gm CHO plus correction 1 per 30 above 120. She is 27 weeks with her first child, is progressing well, US from 06/11/2020, weight was >99%. She uses Dexcom, CGM data for 2 weeks were reviewed, average glucose was 154, SD 75, GMI 7. 12% >250, 23%181-250, 54% in range (70-180), 7%<70 and 4%<54. Glucose tracing indicates a trend of overnight hyperglycemia and post meal hyperglycemia when she iseating large carb meal. This is better after she adjusted her IC to 1 per 2. A1C today was 7.2%. She is taking levothyroxine 50 mcg daily Thu-Thu, and 100 mcg on Thu and Sundays for subclinical hypothyroidism. No history of hypoglycemia unawareness. No peripheral neuropathy symptoms, Creatinine from 01/2020 was normal and had normal urine microalbumin, BP today was 135/79. ?? Plan: #1 T1DM: Fairly controlled, no triopathy, complicated by . A1C7.2%. Counseled the patient about the importance of DM control and grave consequences of uncontrolled DM. Reviewed glycemic targets in . Change lantus to 50 units QHS. Continue Novolog 1 per 2 , using 1 per 30 above 120 for correction, she needs to do that before eachmeal. Limit carbs to less than 40 gm per meal. Use DEXCOM. Upload in 1 week. She will benefit from changing to day shift instead of night custodian, I will write a letter stating that. RTC in 4 weeks with me. ?? #2 Hypothyroidism: Continue levothyroxine 50 mcg daily Mon-Thu, and 100 mcg Thu and Sundays, repeat TSH today. ?? Blood pressure 133/75. Recheck was normal 120/65. Using ASA daily. complications: Patient Active Problem List Diagnosis Date Noted ??? Supervision of other high risk , antepartum 03/08/2020 ??? History of pulmonary embolism 03/08/2020 ??? Maternal thyroid dysfunction, antepartum 03/08/2020 ??? Constipation 03/08/2020 ??? Pre-existing type 1 diabetes mellitus during in second trimester 03/08/2020 ??? Hypothyroid (HRC) ??? Herpes genitalia (HRC) ??? Attention deficit hyperactivity disorder (ADHD) 10/30/2008 O: There were no vitals filed for this visit. Gen: alert, oriented, NAD See OB flowsheet. A/P: 19 y.o. at 29w0d by first-trimester ultrasound per [facility] presenting for follow-up care. Care: - OB labs reviewed: A positive, Rubella immune, HIV/RPR nonreactive, Heb B sAG neg - Genetics: NT normal - Anatomy ultrasound: level 2 ultrasound normal. - Rh positive, Rhogam not indicated - 28 weeks week labs today. - S/p flu03/08/20 -Tdap today 06/22/2020 - GBS at 36 weeks - Feed: breast - Contraception: unsure, ?Mirena Type 1 DM -follows in endocrinology - Baseline HELLP labs??03/08/2020: ??PCR 0.09, LFTs normal, plts 287k. Repeated preeclampsia today. - Opthalmology appointments in 1st and 3rd trimester - PPx baby Asa from 12-16 weeks through??term - Primary Vp Of Digital Marketing:?Khoi Quevedo Vp Of Digital Marketing, Dr. Maldonado.?? - 06/13 hemoglobin A1c 7.2. Continue current insulin regimen as advised by endocrine. - Growth US: 06/21 EFW 99 percentile, AC 99%, SATYA 26. Fundal height size greater than dates. [facility] ultrasound scheduled 07/09/2020 - testing: BPP twice weekly at 30 wk. Advised to schedule today and start next week. - Timing of delivery: Between [id number] for well controlled, [id number]-50m8j for poorly controlled. Hypothyroid. --subclinical. ??Synthroid 50 mcg daily +2 on weekends, per endo. 06/11 TSH 2.44 ?? General herpes. ?? -Call for outbreaks and will order Valtrex. ??Plan for Valtrex or acyclovir 36 weeks until delivery. labor signs and symptoms reviewed. kick counts advised. Preeclampsia symptoms reviewed. Advised purchased blood pressure cuff and check daily. Report if greater than 140/90. Reviewed appointment schedule for OB visits and advised next appointment with MD. ?? Follow-up in clinic in 1 week for BPP and MD visit. MS-BODY SHOP WORKER Dictation Disclaimer: Some notes are completed with voice-recognition dictation software. Typographical errors may result . Please contact me via [employer] staff message if you note any errors requiring clarification. documented in this encounter Plan of Treatment Not on filedocumented as of this encounter Results (ABNORMAL) TP/Crea Ratio, Urine (06/22/2020 1:11 PM CDT) P athologist Signature Total Protein, 20 (H) 0 - 14 06/22/2020 [facility] Urine, Random mg/dL 4:20 PM CDT LABORATORY Creatinine, 219 >20 mg/dL 06/22/2020 [facility] Urine, Random 4:20 PM CDT LABORATORY TP/Creat 0.09 0.00 - 06/22/2020 [facility] Ratio, Urine 0.20 4:20 PM CDT LABORATORY Random Specimen Anatomical Collection Method Collection Time Receive d Time (Source) Location / / Volume Laterality Urine Non-blood 06/22/2020 1:11 PM 1:11 Collection / CDT PM CDT Unknown Narrative [facility] - 06/22/2020 4:20 P M CDT Low urine creatinine values coupled with low urine protein values can artifactually increase the urine protein/creatinine re sults. Correlate results of ratio with creatinine results. Denisha Serna APRN, CNP LAB_1 Performing Organization Address City/State/ZIP Code Phon e Number [facility] [address] [place] [address] Treponema Screen (06/22/2020 1:08 PM CDT) [facility] Method Time Signature Treponema Screen 0.035 {s_co_ratio 06/22/2020 [facility] Result } 4:13 PM CDT LABORATORY Treponema Screen Non Non 06/22/2020 [facility] Interpretation Reactive Reactive 4:13 PM CDT LABORATORY Specimen Anatomical Collection Method / Collection Time Recei andrade Time (Source) Location / Volume Laterality Blood Venipuncture / 06/22/2020 1:08 06/22/2020 1:08 Unknown PM CDT PM CDT Denisha Fenton Daphne NICK CNP LAB_1 Performing Organization Address City/[facility]/ZIP Code Phon e Number [facility] [address] [place] [address] (ABNORMAL) Creatinine / GFR (06/22/2020 1:08 PM CDT) [facility] Method Time Signature Creatinine 0.50 (L) 0.55 - 06/22/2020 [place] 1.02 mg/dL 4:52 PM CDT LABORATORY GFR, Estimated >60 >60 06/22/2020 [place] mL/min/1.7 4:52 PM CDT LABORATORY 3m2 Specimen Anatomical Collection Method / Collection Time Recei andrade Time (Source) Location / Volume Laterality Blood Venipuncture / 06/22/2020 1:08 06/22/2020 1:08 Unknown PM CDT PM CDT Denisha Fenton Daphne NICK CNP LAB_1 Performing Organization Address City/State/ZIP Code Phon e Number [facility] [address] [place] [address] (ABNORMAL) Complete Blood Count-No Diff (06/22/2020 1:08 PM CDT) [facility] Method Time Signature WBC 6.9 3.5 - 10.5 06/22/2020 [place] x10(9)/L 2:51 PM CDT LABORATORY RBC 3.87 (L) 3.90 - 06/22/2020 [place] 5.03 2:51 PM CDT LABORATORY x10(12)/L Hemoglobin 10.4 (L) 12.0 - 06/22/2020 [place] 15.5 g/dL 2:51 PM CDT LABORATORY HCT 32.0 (L) 34.9 - 06/22/2020 [place] 44.5 % 2:51 PM CDT LABORATORY MCV 82.7 80.0 - 06/22/2020 [place] 100.0 fL 2:51 PM CDT LABORATORY MCH 26.9 (L) 27.6 - 06/22/2020 [place] 33.3 pg 2:51 PM CDT LABORATORY MCHC 32.5 31.5 - 06/22/2020 [place] 35.2 g/dL 2:51 PM CDT LABORATORY RDW 12.7 11.9 - 06/22/2020 [place] 15.5 % 2:51 PM CDT LABORATORY Platelets 322 150 - 450 06/22/2020 [place] x10(9)/L 2:51 PM CDT LABORATORY Automated NRBC 0 <=0 /100 06/22/2020 [place] WBC 2:51 PM CDT LABORATORY Specimen Anatomical Collection Method / Collection Time Recei andrade Time (Source) Location / Volume Laterality Blood Venipuncture / 06/22/2020 1:08 06/22/2020 1:08 Unknown PM CDT PM CDT Denisha Fenton Daphne NICK CNP LAB_1 Performing Organization Address [facility]/ZIP [facility] [address] [place] [phone] AST (06/22/2020 1:08 PM CDT) athologist Signature AST (SGOT) 14 10 - 40 U/L 06/22/2020 [place] 4:52 PM CDT LABORATORY Specimen Anatomical Collection Method / Collection Time Recei andrade Time (Source) Location / Volume Laterality Blood Venipuncture / 06/22/2020 1:08 06/22/2020 1:08 Unknown PM CDT PM CDT Denisha Fenton Daphne NICK CNP LAB_1 Performing Organization Address [facility]/ZIP [facility] [address] [place] [phone] ALT (SGPT) (06/22/2020 1:08 PM CDT) P athologist Signature ALT (SGPT) <10 0 - 55 U/L 06/22/2020 [place] 4:52 PM CDT LABORATORY Specimen Anatomical Collection Method / Collection Time Recei andrade Time (Source) Location / Volume Laterality Blood Venipuncture / 06/22/2020 1:08 06/22/2020 1:08 Unknown PM CDT PM CDT Denisha Fenton Ramsey SHINGLE WEAVER, BODY SHOP WORKER LAB_1 Performing Organization Address City/State/ZIP Code Phon e Number [facility] [address] [place] [address] documented in this encounter Visit Diagnoses Diagnosis Supervision of other high risk , antepartum - Primary Pre-existing type 1 diabetes mellitus du ring in second trimester Maternal thyroid dysfunction, antepartum (HRC) Thyroid dysfunction, antepartum History of pulmonary embolism Personal history of pulmonary embolism Genital herpes simplex, unspecified site (HRC) documented in this encounter Care Teams Supervisor Production Department Relationship Specialty Start Date End Date Palmira Lim MD PCP - General 05/08/[address] [place] [phone] documented as of this encounter
--- OUTSIDE RECORDS SUMMARY | 2021-12-08 10:26 | XMS_ITS | Encounter Summary ---
:1999 Author Organization [employer] Address [address] [place] [address] Care Team Providers Name Role Phone Palmira Lim MD Primary Care Provider Reason for Visit Reason Comments CONSULT Encounter Details Date Type Department Care Team Description 06/11/2020 Procedure Visit [facility] [address] Dusty Denis MD CONSULT Maternal Medic ine [id number] [place] [id number] [phone] Social History Tobacco Use Types Packs/Day Years [...] documented as of this encounter Progress Notes Anita Denis MD - 06/11/2020 3:30 PM CDT [facility] ULTRASOUND AND CONSULTATION DATE OF VISIT: 06/11/2020 IMPRESSIONS: 1) Intrauterine at 27 weeks 3 days gestational age 2) No anomalies noted 3) biometry is consistent with gestational age. 4) EFW >99%ile and AC >99%ile noted 5) The amniotic fluid volume appeared increased (mild polyhydramnios, SATYA 26.44 cm, MVP 9.04 cm). 6) No evidence of placenta previa RECOMMENDATIONS: -Please see separate consult note for additional counseling -Schedule routine care appointments with primary care provider -Follow up ultrasounds with MFM every 4 weeks (ordered) -Twice weekly testing starting at 30 weeks (OB/Radiology) Brief consult: In addition to the ultrasound interpretation, the patient was seen for a brief consultation. Nabila Serna is a 19 y.o. at 27w3d by first trimester ultrasound. She has been followed due to T1DM. The is also complicated by hypothyroidism. Serum screening: FTS low risk. She is accompanied to today's visit by her sister. I reviewed her OB records including pertinent labs, imaging results, and notes as summarized above. We discussed that the normal amniotic fluid index (SATYA) in ranges from 5 to 24 cm. Polyhydramnios, defined as an abnormal increase in amniotic fluid volume, complicates 1-2% of johnson pregnancies. The degree of polyhydramnios is categorized into mild (SATYA 24.0-29.9 cm or DVP 8-11 cm, 65-70% of cases), moderate (SATYA 30.0-34.9 cm or DVP 12-15 cm, 20% of cases), and severe (SATYA 35 cm or greater or DVP 16 cm or greater, <15% of cases). This case is categorized as mild. The majority of polyhydramnios cases are idiopathic (60-70%, including macrosomic fetuses), althougha portion of these pregnancies will have an identifiable cause postnatally. The two most common pathologic causes of polyhydramnios include maternal diabetes and anomalies. In this case, mild polyhydramnios most likely attributable to macrosomia and maternal diabetes mellitus. Progression of polyhydramnios would be suggestive of an underlying structural or genetic etiology, and resolutionis not uncommon. We discussed that the fetus is large for gestational age. Risk of adverse outcome increases along a continuum based on degree of macrosomia. Encouraged patient to continue working with Endocrinology tostrive for euglycemia. Often there are increased insulin needs as the progresses. macrosomia is an important risk factor for operative delivery, as well as poor delivery outcomes, particularly maternal and traumatic injury. Although the prediction of macrosomia is imprecise, scheduled may be beneficial for newborns with suspected macrosomia who have an estimated weight of at least 4,500 g in women with diabetes. Thank you for your kind referral. We look forward to assisting you with any additional needs. Pleasecall with questions. documented in this encounter Plan of Treatment Not on filedocumented as of this encounter Visit Diagnoses Diagnosis Pre-existing type 1 diabetes mellitus du ring in third trimester - Primary documented in this encounter Care Teams Quality Improvement Consultant Relationship Specialty Start Date End Date Palmira Lim MD PCP - General 05/08/[address] [facility] [place] [address] documented as of this encounter
--- OUTSIDE RECORDS SUMMARY | 2021-12-08 10:26 | XMS_ITS | Encounter Summary ---
:2000 Author Organization [facility] Address [address] [place] [address] Care Team Providers Name Role Phone Palmira Lim MD Primary Care Provider Reason for Referral Procedure/Equipment (Routine) - Incomplete Specialty Diagnoses / Procedures Referred By Contact Refer red To Contact Diagnoses Pre-existing type 1 diabetes mellitus during in second trimester Ying Belle MD Procedures MFM US Level 2, Echo MFM US Level 2 [address] [place], [place] [address] Referral ID Status Reason Start Date Expiration Date Visits V isits Requested Authorized [id number] Incomplete 03/26/2020 06/25/[address] MITIGATION OFFICER Reason for Visit Reason Comments Routine Visit 16w5d Encounter Details Date Type Department Care Team Description 03/26/2020 Routine [facility] Ying Belle, Routine Services-AVIATION CONSULTANT Visit (16w5d) [address] [address] [facility] [address] [place] [address] [id number] Social History Tobacco Use Types Packs/Day Years [...] Sign Reading Time Taken Comments Blood Pressure 128/66 03/26/2020 3:29 PM HAZARD MITIGATION OFFICER Pulse 100 03/26/2020 3:29 PM HAZARD MITIGATION OFFICER Temperature - - Respiratory Rate - - Oxygen Saturation - - Inhaled Oxygen Concentration - - Weight 77.2 kg (170 lb 3.2 oz) 03/26/2020 3:29 PM HAZARD MITIGATION OFFICER Height - - Body Mass Index 29.21 03/08/2020 8:29 PM HAZARD MITIGATION OFFICER documented in this encounter Progress Notes Ying Belle MD - 03/26/2020 3:20 PM CST Nabila Serna is a 19 y.o. with LMP 11/27/2019, at 16 5/7 weeks gestation, who presents for her new OB two visit. She has had no bleeding or spotting. She is feeling well. She is happy with how quickly her A1c has improved. She is very invested in healthy . high risk due to: Type 1 Diabetes--Diagnosed with diabetes: 2016. Follows in endocrine. hx PE 2018 during hosp for DKA, smoker, nexplanon. Now on lovenox ppx 40 mg sq daily. Genetic screening neg. unplanned hypothyroid, subclinical, now replaced. ADD--not on meds currently Hx genital HSV--plan acyclovir ppx. The above confers risk of pre-eclampsia--on low dose ASA. OB History Para Term AB Living 1 0 0 0 0 0 SAB TAB Ectopic Multiple Live Births 0 0 0 0 0 # Outcome Date GA Lbr Sathya/2nd Weight Sex Delivery Anes PTL Lv 1 Current First trimester screening was normal. Patient Active Problem List Diagnosis ??? Attention deficit hyperactivity disorder (ADHD) ??? Hypothyroid (HRC) ??? Herpes genitalia (HRC) ??? Supervision of other high risk , antepartum ??? History of pulmonary embolism ??? Maternal thyroid dysfunction, antepartum ??? Constipation ??? Pre-existing type 1 diabetes mellitus during in second trimester Past Medical History: Diagnosis Date ??? ADD (attention deficit disorder) ??? Chlamydia (HRC) ??? DKA (diabetic ketoacidoses) (HRC) 2017 ??? Herpes genitalia (HRC) ??? History of tobacco use ??? Hypothyroid (HRC) ??? Pulmonary embolus (HRC) 2018 During DKA hospitalization, smoking / Nexplanon control used ??? Type 1 diabetes mellitus without complication (HRC) 05/11/2018 Dx 2016 Past Surgical History: Procedure Laterality Date ??? SURGICAL HX - NEG Outpatient Medications Prior to Visit Medication Sig Note Dispense Refill ??? aspirin 81 MG chewable [...] times a day. 30 Capsule 1 ??? enoxaparin (LOVENOX) 40 MG/0.4ML SOLN injection Inject 40 mg subcutaneously daily. 15 Each 5 ??? insulin aspart (NOVOLOG FLEXPEN) 100 UNIT/ML pen injection Inject subcutaneously three times daily before meals. 1U for every 40 over 140 on sliding scale 1 U for every 6g carbs TDD 30-40 units Indications: Diabetes Mellitus (Patient taking differently: Inject subcutaneously three times daily before meals. 1U for every 40 over 140 on sliding scale 1 U for every 5g carbs TDD 30-40 units Indications: Diabetes Mellitus) 45 mL 3 ??? Insulin Degludec (TRESIBA) 100 UNIT/ML SOLN 30 units daily (Patient taking differently: 32 unitsdaily) 01/13/2020: 32 units 15 mL 3 ??? insulin pen needle 31G X 5 MM Inject 1 Each subcutaneously five times a day. 500 Each 2 ??? levothyroxine (SYNTHROID) 50 MCG tablet Take 1 Tablet by mouth daily. 90 Tablet 3 ??? methylcellulose (CITRUCEL) oral powder 1 tablespoon mixed with water by mouth daily 245 g 0 ??? vitamin-ferrous fumarate-folic acid (PRENATALPLUS) 27-1 MG tablet Take 1 Tablet by mouth daily. ??? insulin degludec (TRESIBA FLEXTOUCH) 200 UNIT/ML SOPN Inject 32 Units subcutaneously daily. (Patient not taking: Reported on 03/08/2020) 12 mL 0 ??? insulin NPH, human isophane, (HUMULIN NPH) 100 UNIT/ML injection Inject 6 Units subcutaneously daily. Once daily right before sleep (Patient not taking: Reported on 03/08/2020) 15 mL 0 No facility-administered medications prior to visit. Allergies Allergen Reactions ??? Shellfish-Derived Products Anaphylaxis Lip swelling ??? Acetaminophen Other, see comments Patient cannot take acetaminophen due to implanted sensor related to the insulin pump. Is not supposed to take while using insulin pump Pertinent family history: Family History Problem Relation Age of Onset ??? Cancer, Cervical Mother ??? No Known Problems Father Unaware of biological dads PMH ??? Cataract Negative Family History ??? Glaucoma Negative Family History ??? Macular Degeneration Negative Family History ??? Retinal Detachment Negative Family History ??? Amblyopia/Strabismus Negative Family History Social history: single, FOB not involved. Has a new boyfriend, who does want to be supportive. Says parents are supportive. Deals [place] at [employer]. Does get frequent breaks. ROS: Consistent with symptoms of current gestational age. Has a bump by her buttock that she would like me to check out. Does not think it is an HSV outbreak, but is unsure. Wonders if it is from shaving. OBJECTIVE: Blood pressure 128/66, pulse 100, weight 170 lb 3.2 oz (77.2 kg), last menstrual period 11/27/2019, not currently . Estimated body mass index is 29.21 kg/m?? as calculated from the following: Height as of 03/08/20: 5' 4 (1.626 m). Weight as of this encounter: 170 lb 3.2 oz (77.2 kg). Well-developed well-nourished woman in no distress, alert and oriented. External genitalia normal. On the left buttock near the leg, she has an area of folliculitis. Two other areas of healing folliculitis. Nothing suspicious for infectious origin. She is reassured. Shaving is discouraged. Fundus is consistent with 16 weeks. heart tones in the 150s. ASSESSMENT: Supervision of high-risk : -Type 1 diabetes uncontrolled at conception, A1C 11.2 in December. Now 6.9. Follows with endocrinology. -Needs level 2 and echo scheduled. History diabetic ketoacidosis -Hx Pulmonary embolus 2017. Genetic screening negative in March. On lovenox 40 mg SQ daily. -Hypothyroid-subclinical, on synthroid 50 mcg daily, TSH in range. -General herpes. plan ppx at 36 weeks -History marijuana use , says not during . PLAN: New OB labs, diet, exercise, restrictions, genetic screening options all reviewed. First trimester screen normal. A positive, rubella immune Pregestational diabetes: -needs level 2 with echo ordered- ordered today to be done around 20 weeks. - Baseline HELLP labs 03/08/2020: PCR 0.09, LFTs normal, plts 287k - Opthalmology appointments in 1st and 3rd trimester - PPx baby Asa from 12-16 weeks through term - Primary General Car Yard Supervisor: Miladis Quevedo General Car Yard Supervisor, Dr. Maldonado. Highly advised that patient keep all appointments as scheduled. - Growth US: Every 4 weeks starting at 28 weeks - testing: BPP weekly at 32 weeks for well controlled, 28 weeks for poorly controlled - Timing of delivery: Between [id number] for well controlled, [id number] for poorly controlled Hx PE 2018. Genetic predisposition screen negative. On lovenox ppx 40 mg sq daily. Risk of preeclampsia, on low-dose aspirin. ?? Hypothyroid.--subclinical. Synthroid 50 mcg daily per endo. TSH 3.21 on 03/06/2020 ?? General herpes. Call for outbreaks and will order Valtrex. Plan for Valtrex 36 weeks until delivery. RTC 4 weeks Offered MSAFP today, she is unsure. She wants to check with her insurance, and she will return to have this drawn this week or next if she wants to do it. I encouraged her to get this done before 20 weeks if she does want to do this test. Also discussed if she does not have DHEA in her vitamin, to machine pecan picker some [place] 3 fatty acids 1000 mg daily. She has had her flu shot. Discussed recommendations for COVID vaccine during , and lack of long- term data. She says she may be able to get this at work, but it is not available yet. She will keep this in mind. ?? Ying Belle MD 4:26 PM 03/26/2020 Total time 55 minutes including chart review, review of risks and outline of cares with patient, and documentation. RD MITIGATION OFFICER documented in this encounter Plan of Treatment Not on filedocumented as of this encounter Results MFM US Level 2, Echo (04/25/2020 10:10 AM HAZARD MITIGATION OFFICER) athologist Signature Cervical Length 3.72 cm EXTERNAL RESULTS Anatomical Region Laterality Modality Pelvis Ultrasound Study GA Study Date Study TATE Working ATTE (Source) W eight (Method) 21w3d 04/25/2020 2020 [...] by Kamila Delgadillo MD on 1:32 PM HAZARD MITIGATION OFFICER Table formatting from the original resul t was not included. Patient Name: Nabila Serna ??Attendi ng: Kamila Delgadillo MD Patient ??Block Feeder: Otilia Lewis RDMS , Age: 709/02/2000, 19 [...] View appears normal Orbits appears normal ??Cardiac Peggs addi ears normal Lenses appears normal ??Cardiac [...] a ppears normal Pleural Effusion absent ??Short Peggs of Ventricles appears normal Extremities ??Short Peggs of Great Vessel s appears normal Right [...] previa 8) Complex, subamniotic cystic structure measuring [id number] RECOMMENDATIONS: -Please see separate consult note for [...] hyperactivity disorder (ADHD), unspecified ADHD type (HRC) Pre-existing type 1 diabetes mellitus du ring in second trimester documented in this encounter Care Teams Electronics Repair Technician Relationship Specialty Start Date End Date Palmira Lim MD PCP - General 05/08/[address] [place] [address] documented as of this encounter
--- OUTSIDE RECORDS SUMMARY | 2021-12-08 10:26 | XMS_ITS | Encounter Summary ---
:2000 Author Organization [facility] Address [address] [place] [address] Care Team Providers Name Role Phone Palmira Lim MD Primary Care Provider Encounter Details Date Type Department Care Team Description 06/13/2020 Lab Visit [facility] Type 1 diabetes mellitus com plicating , antepartum, second trimester; [address] [facility] Subclinical hypothyroidism; [place] [address] Pre-existing type 1 diabetes mellitus during in second trimester [phone] Social History Tobacco Use Types Packs/Day Years [...] Associated Diagnosis Comme nts TSH, SENSITIVE Routine 06/13/2020 2:38 PM Type 1 diabetes Resu lts for this CDT mellitus complicating proced ure are in , antepartum, the r esults second trimester section. Subclinical hypothyroidism Pre-existing type 1 diabetes mellitus during in second trimester documented in this encounter Results TSH (06/13/2020 2:38 PM CDT) athologist Signature TSH, Sensitive 2.44 0.30 - 06/13/2020 [facility] 4.50 7:07 PM CDT LABORATORY uIU/mL Specimen Anatomical Collection Method / Collection Time Recei andrade Time (Source) Location / Volume Laterality Blood Venipuncture / 06/13/2020 2:38 06/13/2020 2:38 Unknown PM CDT PM CDT [facility] Performing Organization Address City/State/ZIP Code Phon e Number [facility] [address] [place] [address] documented in this encounter Visit Diagnoses Diagnosis Type 1 diabetes mellitus complicating pr egnancy, antepartum, second trimester Subclinical hypothyroidism Other specified acquired hypothyroidism Pre-existing type 1 diabetes mellitus du ring in second trimester documented in this encounter Care Teams Oil Transport Driver Relationship Specialty Start Date End Date Palmira Lim MD PCP - General 05/08/[address] [place], [place] [address] documented as of this encounter
--- OUTSIDE RECORDS SUMMARY | 2021-12-08 10:26 | XMS_ITS | Encounter Summary ---
:2000 Author Organization [facility] Address [address] [place] [address] Care Team Providers Name Role Phone Palmira Lim MD Primary Care Provider Reason for Visit Reason Comments Diabetes Encounter Details Date Type Department Care Team Description 06/13/2020 Office Visit Lilian Jamil Type 1 diab etes mellitus complicating , antepartum, second trimester (Primary Dx); Endocrinology M, [facility] Subclinical hypothyroidism; [address] Pre-existing type 1 diabetes mellitus during [place] [address] [facility] [phone] [place], [place] [id number] Social History Tobacco Use Types Packs/Day Years [...] Sign Reading Time Taken Comments Blood Pressure 135/79 06/13/2020 2:07 PM CDT Pulse 107 06/13/2020 1:56 PM CDT Temperature - - Respiratory Rate - - Oxygen Saturation - - Inhaled Oxygen Concentration - - Weight 88.4 kg (194 lb 14.4 oz) 06/13/2020 1:56 PM CDT Height 162.6 cm (5' 4) 06/13/2020 1:56 PM CDT Body Mass Index 33.45 06/13/2020 1:56 PM CDT documented in this encounter Progress Notes Shaji Villatoro - 06/13/2020 2:00 PM CDT Images from the original note were not included. Lilian Maldonado MBBS - 06/13/2020 2:00 PM CDT [facility] Department of Endocrinology, Diabetes and Metabolism Clinic Note Name: Nabila Serna Cc: Follow up for T1DM. 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 #1 T1DM: Diagnosed in 2015, no known [...] normal urine microalbumin, BP today was 135/79. Physical Examination: Vitals: BP 135/79 (BP Location: Right Arm, BP Cuff Size: Regular) Pulse (!) 107 Ht 5' 4 (1.626 m) Wt 194 lb 14.4 oz (88.4 kg) LMP 11/27/2019 (Exact Date) BMI 33.45 kg/m?? General: The patient is alert and [...] from changing to day shift instead of senior database administrator, I will write a letter stating that. RTC in 4 weeks with me. #2 Hypothyroidism: Continue levothyroxine 50 mcg daily Thu-Thu, and 100 mcg Thu and Sundays, repeat TSH today. KAIN Bruce Respiratory Equipment Assistant documented in this encounter Plan of Treatment Not on filedocumented as of this encounter Procedures Procedure Name Priority Date/Time Associated Diagnosis Comme nts POCT GLYCOSYLATED Routine 06/13/2020 2:20 PM Type 1 diabetes R esults for this HEMOGLOBIN (HGB A1C) CDT mellitus procedu re are in complicating the results , section. antepartum, second trimester Subclinical hypothyroidism Pre-existing type 1 diabetes mellitus during in second trimester documented in this encounter Results TSH (06/13/2020 2:38 PM CDT) athologist Signature TSH, Sensitive 2.44 0.30 - 06/13/2020 [facility] 4.50 7:07 PM CDT LABORATORY uIU/mL Specimen Anatomical Collection Method / Collection Time Recei andrade Time (Source) Location / Volume Laterality Blood Venipuncture / 06/13/2020 2:38 06/13/2020 2:38 Unknown PM CDT PM CDT [facility] Performing Organization Address City/State/ZIP Code Phon e Number [facility] [address] [place] [address] (ABNORMAL) POCT glycosylated hemoglobin (Hb A1C) (06/13/2020 2:20 PM CDT) athologist Signature Hemoglobin A1C 7.2 (A) 5.6 % POCT (Rapid) Cartridge Lot# [id number] POCT Specimen (Source) Anatomical Collection Method Collection Time Re ceived Time Location / / Volume Laterality Blood 06/13/2020 2:20 PM CDT Lilian FINNEGAN ET POINT OF CARE TEST ENTER/ EDIT ORDERABLES Performing Organization Address City/[facility] Phon e Number POCT documented in this encounter Visit Diagnoses Diagnosis Type 1 diabetes mellitus complicating pr egnancy, antepartum, second trimester - Primary Subclinical hypothyroidism Other specified acquired hypothyroidism Pre-existing type 1 diabetes mellitus du ring in second trimester documented in this encounter Care Teams Criminal Justice Professor Relationship Specialty Start Date End Date Palmira Lim MD PCP - General 05/08/06 [address] [place] [address] documented as of this encounter
[2021-12-08 10:27] LABS: PCO2 VBG 25 mmHG (40-50)
--- OUTSIDE RECORDS SUMMARY | 2021-12-08 10:27 | XMS_ITS | Encounter Summary ---
:2000 Author Organization [facility] Address [address] [place] [address] Care Team Providers Name Role Phone Palmira Lim MD Primary Care Provider Reason for Visit Reason Comments Diabetes Encounter Details Date Type Department Care Team Description 07/19/2019 Telemedicine [place] Sonja Beltran, Uncontrolled type I diabetes mellitus without complication (Primary Dx); Endocrinology RN IMMUNOLOGY, CLINICAL SUPERVISOR Subclinical hypothyroidism [address] [address] [facility] [phone] [place] [address] Social History Tobacco Use Types Packs/Day Years Used Date Smoking Tobacco: Every Day Cigarettes 0.3 1 Smokeless Tobacco: Never Alcohol [...] documented as of this encounter Progress Notes Shaji Villatoro - 07/19/2019 3:00 PM CDT Called patient for prep. No answer. Left VM to call back. Shaji Villatoro - 07/19/2019 3:00 PM CDT Called patient for prep. No answer. Left VM to call back. Sonja Beltran APRN, CLINICAL SUPERVISOR - 07/19/2019 3:00 PM CDT ATTEMPTED VIDEO CALL. No answer at 302 pm. July 19, 2019 Chief Complaint: Nabila Serna a 18 y.o. female is contacted for follow up of Type 1 diabetes. Last saw Pita Salinas 09/2018/ Dr. Maldonado a year ago, I am meeting her today by phone. Today's office visit has been converted into a phone visit due to COVID-19 social isolation precautions. Total phone time: 35 min History of Present Illness: Subjective: Diagnosed with diabetes: 2016 Complications:No known chronic microvascular complications of diabetes. Pt is using MDI. Did have a sensor, but no insurance since 03/02/2019, so no sensor. Admits quickly that she was trying to avoid my call as she did not feel she was doing well with her diabetes. She does not have insurance and does not have MA. Does not know how to apply. States she sometimes forgets to take her long-acting insulin, sometimes she does not want to see her blood sugar numbers. Sometimesher schedule is so unusual that she just can not take good care of her diabetes. Has been trying to take insulin, but forgets quite often--especially the long acting insulin as she is trying to take it as she heads to work. Other health issues: ADD. Subclinical hypothyroidism history. Patient has not been on any levothyroxine lately. Indicates ???I do not know what is wrong with my thyroid?? . Review of systems: Patient complains of irregular periods. She gets at about every month, but does not have not on any regular pattern. States she is very tired quite often. 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 Last eye exam: Over a year ago Foot exam: 06/[address] Martin, normal exam. Social history: Tobacco: reports that she has been smoking cigarettes. She has a 0.25 pack-year smoking history. She has never used smokeless tobacco. 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 Has not had a regular sleep scheduleso insulin and food are irregular as well. Current Diabetes Treatment Regimen: Tresiba is supposed to be 30 units each night. Misses this quite often. HL is supposed to be about1/6 grams plus 1/40 over 140. Admits she is not doing this regularly. She was well aware of dosing however. Full med list reviewed in [facility]. No other meds. Objective: Female patient, sounds very sleepy on the phone. Works through the initial registration on the [employer] website while were on the phone together. Indicates she was glad that we had the conversation today. Admits to being anxious about COVID and coming in to clinic in September. Glucose Monitoring: Home glucose monitoring: Testing BG a few times daily Vague about her blood sugar testing. Seems very reluctant to give me numbers. Denies any hypoglycemia.. Last A1c: Lab Results Component Value Date HGB A1C 9.5 (H) 05/20/2018 Hemoglobin A1C, POC 9.4 (A) 10/20/2018 Last LDL: Lab Results Component Value Date Cholesterol 163 05/20/2018 Cholesterol/HDL Ratio Screen 3.9 05/20/2018 HDL Cholesterol 42 05/20/2018 Triglycerides 75 05/20/2018 LDL Calculated 106 05/20/2018 Microalbumin: Lab Results Component Value Date Microalbumin Urine <10.0 05/20/2018 Assessment: Nabila is a 18 y.o. female who was contacted today for Type 1 diabetes mellitus with following diagnoses: Diagnoses and Orders Placed: 1. Uncontrolled type I diabetes mellitus without complication (HRC) 2. Subclinical hypothyroidism (HRC) Plan: 1. Set an alarm on phone Shelbie. Discussed the benefit of taking it every single day. 2. Helped pt get started with [place] application while we were on the phone together. Gave the patient the phone number to call for help to apply.. 3. Discussed the importance of keeping her appointment in September so that we can look at her blood glucose levels with her, check her thyroid and kidney tests, and hopefully get her started on a sensor again if she has insurance. I explained that she needs to be testing 4 times a day in order to be eligible for some of the insurance plans to cover a sensor. 4. Patient states that she does have insulin and strips in adequate supply at home right now. 5. Discussed with the patient the fact that we are here to support her and encouraged her toward better health. Emotional support provided. The patient indicates that she has enough strips at this time. Other prescriptions updated. documented in this encounter Plan of Treatment Not on filedocumented as of this encounter Visit Diagnoses Diagnosis Uncontrolled type I diabetes mellitus [facility] complication - Primary Subclinical hypothyroidism Other specified acquired hypothyroidism documented in this encounter Care Teams Spot Billing Clerk Relationship Specialty Start Date End Date Palmira Lim MD PCP - General 05/08/[address] [place] [address] documented as of this encounter
--- OUTSIDE RECORDS SUMMARY | 2021-12-08 10:27 | XMS_ITS | Encounter Summary ---
:1999 Author Organization [employer] Address [address] [place] [address] Care Team Providers Name Role Phone Palmira Lim MD Primary Care Provider Reason for Visit Reason Comments Future Appointments Encounter Details Date Type Department Care Team Description 01/16/2020 Telephone [facility] Chava'Julian Nabilamaura Murdock A ppointments Services-SENIOR QUALITATIVE RESEARCHER MD Maricruz [address] [place] [address], [address] [place] [address] [address] [place], [place] [address] [phone] Social History Tobacco Use Types Packs/Day Years [...] this encounter Nursing Notes Twila Suarez - 01/16/2020 9:53 AM CST Called patient, reviewed provider's note below. HCG lab orders placed. Patient verbalizes understanding and agrees with plan. Transfer to lab to schedule appointment. GEMENT INSTRUCTOR Twila Suarez - 01/16/2020 9:52 AM CST ----- Message from Nabila Stokes MD sent at 01/16/2020 9:10 AM MANAGEMENT INSTRUCTOR ----- The patient is on my schedule tomorrow for early OB consult - she had a positive UPT on 01/03 but we have no objective documentation of . Can she complete a HCG today so I have a basis of what to look for, if anything tomorrow? Please and thank you! GEMENT INSTRUCTOR documented in this encounter Plan of Treatment Not on filedocumented as of this encounter Results (ABNORMAL) hCG, Quant Serum [HCG] (01/17/2020 12:44 PM MANAGEMENT INSTRUCTOR) [facility] gist Method Time Signature HCG, 35,463 <=4 01/17/2020 [facility] Quantitative (H) mIU/mL 4:19 PM MANAGEMENT INSTRUCTOR [facility]ATORY Specimen Anatomical Collection Method / Collection Time Recei andrade Time (Source) Location / Volume Laterality Blood Venipuncture / 01/17/2020 12:44 0 Unknown PM MANAGEMENT INSTRUCTOR 12:44 PM MANAGEMENT INSTRUCTOR Narrative [facility] - 01/17/2020 4:19 P M MANAGEMENT INSTRUCTOR Expected ranges Negative: <5 mIU/mL Indeterminate: 5-25 mIU/mL Positive: >25 mIU/mL Suggest repeat testing of indeterminate result in 72 hours. Nabila Stokes MD LAB_1 Performing Organization Address City/State/ZIP Code Phon e Number [facility] [address] [place] [address] documented in this encounter Visit Diagnoses Diagnosis Missed menses - Primary Absence of menstruation documented in this encounter Care Teams Wire Inspector Relationship Specialty Start Date End Date Palmira Lim MD PCP - General 05/08/[address] [place] [address] documented as of this encounter
--- OUTSIDE RECORDS SUMMARY | 2021-12-08 10:27 | XMS_ITS | Encounter Summary ---
:1999 Author Organization [employer] Address [address] [place] [address] Care Team Providers Name Role Phone Palmira Lim MD Primary Care Provider Encounter Details Date Type Department Care Team Description 01/17/2020 Lab Visit [facility] Type 1 diabetes mellitus wit hout complication (HRC); [address] [facility] [place] [address] Social History Tobacco Use Types [...] documented as of this encounter Progress Notes Sonja Beltran APRN, CNP - 01/17/2020 2:00 PM CST Discussed results at her video visit today. NT BLOCK MAKER documented in this encounter Plan of Treatment Not on filedocumented as of this encounter Procedures Procedure Name Priority Date/Time Associated Diagnosis Comme nts ALBUMIN/CREAT RATIO Routine 01/17/2020 2:21 PM Type 1 diabetes Results for this CEMENT BLOCK MAKER mellitus without procedure a re in complication (HRC) the resul ts section. CREATININE / GFR Routine 01/17/2020 12:44 Type 1 diabetes Resu lts for this PM CEMENT BLOCK MAKER mellitus without procedure a re in complication (HRC) the resul ts section. FREE T4 Waiting 01/17/2020 12:44 Type 1 diabetes Results for this PM CEMENT BLOCK MAKER mellitus without procedure a re in complication (HRC) the resul ts section. HCG, QUANTITATIVE, Waiting 01/17/2020 12:44 Missed menses Resu lts for this SERUM PM CEMENT BLOCK MAKER procedure ar e in the results section. TSH, SENSITIVE Waiting 01/17/2020 12:44 Type 1 diabetes Result s for this (WITH REFLEX) PM CEMENT BLOCK MAKER mellitus without procedure are in complication (HRC) the resul ts section. HGB A1C Routine 01/17/2020 12:44 Type 1 diabetes Results for this PM CEMENT BLOCK MAKER mellitus without procedure a re in complication (HRC) the resul ts section. documented in this encounter Results Microalbumin Urine Random (01/17/2020 2:21 PM CEMENT BLOCK MAKER) athologist Signature Albumin, 3.4 mg/L 01/17/2020 [facility] Urine, Random 3:28 PM CEMENT BLOCK MAKER [facility] Creatinine, 52 >20 mg/dL 01/17/2020 [facility] Urine, Random 3:28 PM CEMENT BLOCK MAKER [facility] Albumin/Creati 7 <30 mg/g 01/17/2020 [facility] nine Ratio, 3:28 PM CEMENT BLOCK MAKER [facility] Urine, Random Specimen Anatomical Collection Method Collection Time Receive d Time (Source) Location / / Volume Laterality Urine Non-blood 01/17/2020 2:21 PM 0 2:21 Collection / CEMENT BLOCK MAKER PM CEMENT BLOCK MAKER Unknown Sonja Beltran APRN, DIGITAL CONTENT COORDINATOR LAB_1 Performing Organization Address City/State/ZIP Code Phon e Number [facility] [id number] [place] [address] (ABNORMAL) Free T4 (01/17/2020 12:44 PM CEMENT BLOCK MAKER) athologist Signature T4, Free 0.6 (L) 0.7 - 1.5 01/17/2020 [facility] ng/dL 4:55 PM CEMENT BLOCK MAKER [facility] Specimen Anatomical Collection Method / Collection Time Recei andrade Time (Source) Location / Volume Laterality Blood Venipuncture / 01/17/2020 12:44 0 Unknown PM CEMENT BLOCK MAKER 12:44 PM CEMENT BLOCK MAKER Sonja Beltran APRN, DIGITAL CONTENT COORDINATOR LAB_1 Performing Organization Address [facility] Phon e Number [facility] [address] [place] [address] (ABNORMAL) hCG, Quant Serum [HCG] (01/17/2020 12:44 PM CEMENT BLOCK MAKER) [facility] gist Method Time Signature HCG, 35,463 <=4 01/17/2020 [facility] Quantitative (H) mIU/mL 4:19 PM CEMENT BLOCK MAKER [facility] Specimen Anatomical Collection Method / Collection Time Recei andrade Time (Source) Location / Volume Laterality Blood Venipuncture / 01/17/2020 12:44 0 Unknown PM CEMENT BLOCK MAKER 12:44 PM CEMENT BLOCK MAKER Narrative [facility] - 01/17/2020 4:19 P M CEMENT BLOCK MAKER Expected ranges Negative: <5 mIU/mL Indeterminate: 5-25 mIU/mL Positive: >25 mIU/mL Suggest repeat testing of indeterminate result in 72 hours. Nabila Stokes MD LAB_1 Performing Organization Address [facility] e Number [facility] [address] [place] [address] (ABNORMAL) TSH with Free T4 (if TSH Abnormal) (01/17/2020 12:44 PM CEMENT BLOCK MAKER) athologist Signature TSH, Reflex 9.11 (H) 0.30 - 01/17/2020 [facility] 4.50 4:20 PM CEMENT BLOCK MAKER [facility] uIU/mL Specimen Anatomical Collection Method / Collection Time Recei andrade Time (Source) Location / Volume Laterality Blood Venipuncture / 01/17/2020 12:44 0 Unknown PM CEMENT BLOCK MAKER 12:44 PM CEMENT BLOCK MAKER Narrative [facility] - 01/17/2020 4:20 P M CEMENT BLOCK MAKER Lab will automatically reflex to Free T4 when TSH results are <0.30 uIU/mL or >4.50 mIU/mL. Sonja Beltran APRN, CNP LAB_1 Performing Organization Address City/State/ZIP Code Phon e Number [facility] [address] [place] [address] (ABNORMAL) Hemoglobin A1C Glycosylated (01/17/2020 12:44 PM CEMENT BLOCK MAKER) [facility] Method Time Signature Hemoglobin A1C 11.2 (H) <=5.6 % 01/17/2020 [facility] 9:53 PM CEMENT BLOCK MAKER CENTRAL [facility] Specimen Anatomical Collection Method / Collection Time Recei andrade Time (Source) Location / Volume Laterality Blood Venipuncture / 01/17/2020 12:44 0 Unknown PM CEMENT BLOCK MAKER 12:44 PM CEMENT BLOCK MAKER Narrative [facility] - 01/17/2020 9:53 PM CEMENT BLOCK MAKER For patients not previously diagnosed with diabetes: 5.7-6.4%: Increased risk for diabetes 6.5% and greater: Diagnostic for diabete s For patients diagnosed with diabetes: <8.0%: Goal of therapy for ages 18-75 Clinicians may recommend a higher or low er goal for specific individuals. Sonja Beltran APRN, CNP LAB_1 Performing Organization Address [facility]/ZIP Code Phon e Number [facility] [address] [address] (ABNORMAL) Creatinine (01/17/2020 12:44 PM CEMENT BLOCK MAKER) [facility] Method Time Signature Creatinine 0.50 (L) 0.55 - 01/17/2020 [facility] 1.02 mg/dL 3:19 PM CEMENT BLOCK MAKER [facility] GFR, Estimated >60 >60 01/17/2020 [facility] mL/min/1.7 3:19 PM CEMENT BLOCK MAKER [facility] 3m2 Specimen Anatomical Collection Method / Collection Time Recei andrade Time (Source) Location / Volume Laterality Blood Venipuncture / 01/17/2020 12:44 0 Unknown PM CEMENT BLOCK MAKER 12:44 PM CEMENT BLOCK MAKER Sonja Beltran APRN, CNP LAB_1 Performing Organization Address City/State/ZIP Code Phon e Number [facility] [address] [place] [address] documented in this encounter Visit Diagnoses Diagnosis Type 1 diabetes mellitus without complic ation (HRC) Type I (juvenile type) diabetes mellitus without mention of complication, not stated as uncontrolled Missed menses Absence of menstruation documented in this encounter Care Teams Radiator Mechanic Relationship Specialty Start Date End Date Palmira Lim MD PCP - General 05/08/06 [address], [place] [address] documented as of this encounter
--- OUTSIDE RECORDS SUMMARY | 2021-12-08 10:27 | XMS_ITS | Encounter Summary ---
:1999 Author Organization [email or web address] Address [address] [place] [address] Care Team Providers Name Role Phone Palmira Lim MD Primary Care Provider Encounter Details Date Type Department Care Team Description 03/05/2020 Notes/Orders [facility] Maternal Kamila Delgadillo Su pervision of high risk in first trimester (Primary Dx); Medicine Encounter for screening of mot her [address] [place] [address] [address] [place] [address] [phone] (Wo rk) Social History Tobacco Use Types [...] on filedocumented as of this encounter Results Maternal Screen (03/06/2020 3:33 PM ACUTE CARE PHYSICIAN) [facility] gist Method Time Signature Maternal See Scanned 03/10/2020 [facility] Screen Report 1:41 PM ACUTE CARE PHYSICIAN Specimen Anatomical Collection Method / Collection Time Recei andrade Time (Source) Location / Volume Laterality Blood Venipuncture / 03/06/2020 3:33 03/06/2020 3:33 Unknown PM ACUTE CARE PHYSICIAN PM ACUTE CARE PHYSICIAN Narrative This result has an attachment that is no t available. Kamila Delgadillo MD LAB_1 Performing Organization Address City/State/ZIP Code Phon e Number [facility] [address] [place] [address] documented in this encounter Visit Diagnoses Diagnosis Supervision of high risk in rst trimester - Primary Unspecified high-risk Encounter for screening of mot her Unspecified screening documented in this encounter Care Teams Top Polisher Relationship Specialty Start Date End Date Palmira Lim MD PCP - General 05/08/[address] [facility] [place] [address] documented as of this encounter
--- OUTSIDE RECORDS SUMMARY | 2021-12-08 10:27 | XMS_ITS | Encounter Summary ---
:1999 Author Organization [email or web address] Address [address] [place] [address] Care Team Providers Name Role Phone Palmira Lim MD Primary Care Provider Reason for Visit Reason Comments Other Encounter Details Date Type Department Care Team Description 04/04/2019 Telephone [facility] [address] MBBS Other Endocrinology [address] [place] [facility] [address] [place] [address] [place], [place] [id number] [phone] Social History Tobacco Use Types Packs/Day Years [...] documented as of this encounter Nursing Notes Nadira Ford RN - 04/04/2019 10:53 AM CST Pharmacy calling to get clarification on Humalog. Wants to know TDD, and if she wants pens/vials. Per the pt she uses up to 50 units daily, and does want pens. Pharmacy was notified. INE SETTER AND REPAIRER documented in this encounter Plan of Treatment Not on filedocumented as of this encounter Visit Diagnoses Not on filedocumented in this encounter Care Teams Assistant Laboratory Director Relationship Specialty Start Date End Date Palmira Lim MD PCP - General 05/08/[address] [place] [address] documented as of this encounter
--- OUTSIDE RECORDS SUMMARY | 2021-12-08 10:27 | XMS_ITS | Encounter Summary ---
:1999 Author Organization [employer] Address [address] [place] [address] Care Team Providers Name Role Phone Palmira Lim MD Primary Care Provider Encounter Details Date Type Department Care Team Description 01/17/2020 Orders Only Initial Department Provider, Aubrey, [facility] KHOI LUDWIG MD [place], [place] [address] Interface provider [phone] [place] [address] Social History Tobacco Use Types Packs/Day Years [...] Name Priority Date/Time Associated Diagnosis Comme nts ULTRASOUND SC 01/17/2020 Results for th is procedure are in the resu lts section. documented in this encounter Results ULTRASOUND SC (01/17/2020) Anatomical Region Laterality Modality Other Narrative This result has an attachment that is no t available. Interface Provider MD DUMMY/OTHER/AR documented in this encounter Visit Diagnoses Not on filedocumented in this encounter Care Teams Fuel Dock Attendant Relationship Specialty Start Date End Date Palmira Lim MD PCP - General 05/08/[address] [place] [address] documented as of this encounter
--- OUTSIDE RECORDS SUMMARY | 2021-12-08 10:27 | XMS_ITS | Encounter Summary ---
:2000 Author Organization [facility] Address [address] [place] [address] Care Team Providers Name Role Phone Palmira Lim MD Primary Care Provider Encounter Details Date Type Department Care Team Description 03/08/2020 Lab Visit [place] [facility] diabetes mellitus; [facility] Lab Encounter for blood typing; [address] [facility] Early screening for isoimmunization; 420 Screening for blood disease; [place] [address] Screening examination for ve nereal disease; [phone] Screening exami nation for rubella; Supervision of other high risk , antepartum; Encounter for d rug screening; History of pulm onary embolism Social History Tobacco Use Types Packs/Day Years [...] documented as of this encounter Progress Notes Cristine Hensley, LEX - 03/08/2020 9:40 AM CST Pt informed. See phone note. STANT BASEBALL COACH documented in this encounter Plan of Treatment Not on filedocumented as of this encounter Procedures Procedure Name Priority Date/Time Associated Diagnosis Comme nts RUBELLA IMMUNE STATUS, Routine 03/08/2020 9:45 Screening exami nation Results for this IGG AM ASSISTANT BASEBALL COACH for rubella procedure are i n the results section. CBC AND DIFFERENTIAL Routine 03/08/2020 9:45 Screening for blo od Results for this PANEL AM ASSISTANT BASEBALL COACH disease procedure are i n the results section. URINE CULTURE Routine 03/08/2020 9:45 Supervision of other Res ults for this AM ASSISTANT BASEBALL COACH high risk , procedu re are in antepartum the results section. ANTIBODY SCREEN Routine 03/08/2020 9:45 screening Re sults for this AM ASSISTANT BASEBALL COACH for isoimmunization procedur e are in the results section. TREPONEMA SCREEN Routine 03/08/2020 9:45 Screening examination Results for this AM ASSISTANT BASEBALL COACH for venereal disease procedu re are in the results section. BLOOD TYPE Routine 03/08/2020 9:45 Encounter for blood Resul ts for this AM ASSISTANT BASEBALL COACH typing procedure are i n the results section. RAPID DRUG PANEL, Routine 03/08/2020 9:45 Encounter for drug R esults for this URINE (WITH AM ASSISTANT BASEBALL COACH screening procedure are i n CONFIRMATION) the results section. HIV 1/2 AG/AB 4TH GEN Routine 03/08/2020 9:45 Screening examin ation Results for this AM ASSISTANT BASEBALL COACH for venereal disease procedu re are in the results section. HEMOGLOBIN Routine 03/08/2020 9:45 Supervision of other Resu lts for this ELECTROPHORESIS AM ASSISTANT BASEBALL COACH high risk , proc edure are in antepartum the results section. FREE PROTEIN S ANTIGEN Routine 03/08/2020 9:45 History of pulm onary Results for this AM ASSISTANT BASEBALL COACH embolism procedure are i n the results section. CREATININE / GFR Routine 03/08/2020 9:45 Supervision of other Results for this AM ASSISTANT BASEBALL COACH high risk , procedu re are in antepartum the results section. COMPLETE BLOOD Routine 03/08/2020 9:45 Screening for blood Res ults for this COUNT-W/DIFF AM ASSISTANT BASEBALL COACH disease procedure are i n the results section. PROTEIN C ACTIVITY Routine 03/08/2020 9:45 History of pulmonar y Results for this AM ASSISTANT BASEBALL COACH embolism procedure are i n the results section. ANTITHROMBIN 3 Routine 03/08/2020 9:45 History of pulmonary Re sults for this ACTIVITY AM ASSISTANT BASEBALL COACH embolism procedure are i n the results section. FACTOR 2 MUTATION Routine 03/08/2020 9:45 History of pulmonary Results for this AM ASSISTANT BASEBALL COACH embolism procedure are i n the results section. FACTOR V LEIDEN Routine 03/08/2020 9:45 History of pulmonary R esults for this AM ASSISTANT BASEBALL COACH embolism procedure are i n the results section. UA MICRO IF Routine 03/08/2020 9:45 Supervision of other Resu lts for this AM ASSISTANT BASEBALL COACH high risk , procedu re are in antepartum the results section. TP/CREA RATIO, URINE Routine 03/08/2020 9:45 Supervision of ot her Results for this AM ASSISTANT BASEBALL COACH high risk , procedu re are in antepartum the results section. HBSAG (HEPATITIS B Routine 03/08/2020 9:45 Screening examinati on Results for this SURFACE AG) AM ASSISTANT BASEBALL COACH for venereal disease procedu re are in the results section. HGB A1C Routine 03/08/2020 9:45 Screening for diabetes Re sults for this AM ASSISTANT BASEBALL COACH mellitus procedure are i n the results section. ALT (SGPT) Routine 03/08/2020 9:45 Supervision of other Resu lts for this AM ASSISTANT BASEBALL COACH high risk , procedu re are in antepartum the results section. AST Routine 03/08/2020 9:45 Supervision of other Resu lts for this AM ASSISTANT BASEBALL COACH high risk , procedu re are in antepartum the results section. documented in this encounter Results Hemoglobin Electrophoresis (03/08/2020 9:45 AM ASSISTANT BASEBALL COACH) Component Value Ref Test Analysis Performed At [facility] Range Method Time Signature Hemoglobin A 97.1 95.9 - 03/09/2020 [facility] 97.8 % 1:28 PM [facility] ASSISTANT BASEBALL COACH Hemoglobin A2 2.9 2.2 - 03/09/2020 [facility] 3.2 % 1:28 PM [facility]AL [facility] ASSISTANT BASEBALL COACH Hgb ELP Consistent 03/09/2020 [facility] Interpretation with a normal 1:28 PM CENTRAL LAB hemoglobin ASSISTANT BASEBALL COACH phenotype. Signed Out By Stacie 03/09/2020 [facility] Gustavo 1:28 PM CENTRAL LAB MD roberta ASSISTANT BASEBALL COACH Specimen Anatomical Collection Method / Collection Time Recei andrade Time (Source) Location / Volume Laterality Blood Venipuncture / 03/08/2020 9:45 03/08/2020 9:45 Unknown AM ASSISTANT BASEBALL COACH AM ASSISTANT BASEBALL COACH Denisha Serna [employer], INDUSTRIAL MECHANIC LAB_1 Performing Organization Address City/State/ZIP Code Phon e Number PEND[facility] TO [facility] [address] [address] Complete Blood Count-W/Diff (03/08/2020 9:45 AM ASSISTANT BASEBALL COACH) athologist Signature WBC 8.6 3.5 - 10.5 03/08/2020 [place] x10(9)/L 12:04 PM [facility] RBC 4.38 3.90 - 03/08/2020 [place] 5.03 12:04 PM ASS[facility]ANT B[facility]BALL [facility] x10(12)/L Hemoglobin 12.6 12.0 - 03/08/2020 [place] 15.5 g/dL 12:04 PM ASS[facility]BALL [facility] HCT 37.4 34.9 - 03/08/2020 [place] 44.5 % 12:04 PM ASSISTANT [facility]BALL [facility] MCV 85.4 80.0 - 03/08/2020 [place] 100.0 fL 12:04 PM ASSISTANT BASEBALL [facility] MCH 28.8 27.6 - 03/08/2020 [place] 33.3 pg 12:04 PM ASSISTANT B[facility]BALL [facility] MCHC 33.7 31.5 - 03/08/2020 [place] 35.2 g/dL 12:04 PM [facility] RDW 13.2 11.9 - 03/08/2020 [place] 15.5 % 12:04 PM [facility] Platelets 287 150 - 450 03/08/2020 [place] x10(9)/L 12:04 PM [facility]ANT [facility] Automated NRBC 0 <=0 /100 03/08/2020 [place] WBC 12:04 PM [facility]ALL [facility] Neutrophil 5.7 1.7 - 7.0 03/08/2020 [place] Absolute 10(9)/L 12:04 PM [facility] Lymphocyte 2.1 1.0 - 4.8 03/08/2020 [place] Absolute 10(9)/L 12:04 PM [facility] Monocytes 0.5 0.2 - 0.9 03/08/2020 [place] Absolute 10(9)/L 12:04 PM [facility] Eosinophil 0.2 0.0 - 0.5 03/08/2020 [place] Absolute 10(9)/L 12:04 PM [facility] Basophil 0.0 0.0 - 0.3 03/08/2020 [place] Absolute 10(9)/L 12:04 PM [facility]BALL [facility] Immature Gran % 0.3 0.0 - 0.5 03/08/2020 [facility] % 12:04 PM ASSISTANT BASEBALL COACH LAB[facility]ATORY Specimen Anatomical Collection Method / Collection Time Recei andrade Time (Source) Location / Volume Laterality Blood Venipuncture / 03/08/2020 9:45 03/08/2020 9:45 Unknown AM ASSISTANT BASEBALL COACH AM ASSISTANT BASEBALL COACH Denisha Serna APRN, INDUSTRIAL MECHANIC LAB_1 Performing Organization Address City/State/ZIP Code Phon e Number [facility] [address] [place] [address] (ABNORMAL) Free Protein S Antigen (03/08/2020 9:45 AM ASSISTANT BASEBALL COACH) P athologist Signature Free Protein S 45 (L) 55 - 142 % 03/09/2020 [facility] Antigen 10:28 AM ASSISTANT B[facility]BALL [facility] Specimen Anatomical Collection Method / Collection Time Recei andrade Time (Source) Location / Volume Laterality Blood Venipuncture / 03/08/2020 9:45 03/08/2020 9:45 Unknown AM ASSISTANT BASEBALL COACH AM ASSISTANT BASEBALL COACH [facility] - 03/09/2020 10:[address] This patient has a decreased free Protei n S level indicating congenital or acquired Protein S deficiency. Acquired causes of Protein S deficiency include vitamin K antagonist therapy (e.g. warfarin), richard min K deficiency, recent thrombosis or surgery, liver disease, disseminated int ravascular coagulation, inflammation, nephrotic syndrome, , estrogen therapy, and L-asparaginase therapy. As an acute-phase reactant, plasma C4bBP level s increase with acute illness and may cause acquired free protein S deficiency. If t he patient is on a vitamin K antagonist, recommend repeat testing after the drug has been discontinued for at least 14 days and the International Normalized Ratio ( INR) has normalized. ??If the patient is or on estrogen repeat the test 2 months after or stopping estrogen. Denisha Fenton Daphne NICK CNP LAB_1 Performing Organization Address [facility] Phon e Number [address] [address] Protein C Activity (03/08/2020 9:45 AM ASSISTANT BASEBALL COACH) P athologist Signature Protein C 127 62 - 148 % 03/09/2020 [facility] Activity 10:28 AM [facility] Specimen Anatomical Collection Method / Collection Time Recei andrade Time (Source) Location / Volume Laterality Blood Venipuncture / 03/08/2020 9:45 03/08/2020 9:45 Unknown AM ASSISTANT BASEBALL COACH AM ASSISTANT BASEBALL COACH Denisha Fenton Daphne NICK CNP LAB_1 Performing Organization Address [facility] e Number [address] [address] Factor V Leiden (03/08/2020 9:45 AM ASSISTANT BASEBALL COACH) [facility] gist Method Time Signature Factor 5 No Mutation No Mutation 03/09/2020 [facility] Leiden Detected Detected 8:31 AM [facility] Factor 5 DNA testing 03/09/2020 [facility] Leiden indicates that 8:31 AM [facility] this individual is Negative for the Factor V Leiden R506Q mutation in the Factor V gene. This Negative result does Not rule out other mutations within the Factor V gene or other causes of thrombophilia Specimen Anatomical Collection Method / Collection Time Recei andrade Time (Source) Location / Volume Laterality Blood Venipuncture / 03/08/2020 9:45 03/08/2020 9:45 Unknown AM ASSISTANT BASEBALL COACH AM [facility] 03/09/2020 8:31 AM CS T Factor V Leiden is one of the most common causes of inherited thrombophilia. ??The R506Q mut ation leads to resistance to degradation of the Factor V protein by activated protein C (APC). ??Individuals who have one copy ot the mutation are at a 4-8 fold increa sed risk of thrombosis, and individuals who have two copies are at a 50-100 fold increased risk. This is a PCR assay using the [employer] ert Factor II and Factor V kit. Denisha Fenton Daphne NICK CNP LAB_1 Performing Organization Address [facility] Phon e Number [address] [address] Factor 2 Mutation (03/08/2020 9:45 AM ASSISTANT BASEBALL COACH) Patholo gist Method Time Signature Factor 2 No Mutation No Mutation 03/09/2020 [facility] Mutation Detected Detected 8:31 AM [facility] Factor 2 DNA testing 03/09/2020 [facility] Mutation indicates that 8:31 AM [facility] this individual is negative for the [id number] mutation in the Prothrombin/Fa ctor II gene. This negative result does not rule out the presence other mutations within the Prothrombin/Fa ctor II gene or other causes of thrombophilia. Specimen Anatomical Collection Method / Collection Time Recei andrade Time (Source) Location / Volume Laterality Blood Venipuncture / 03/08/2020 9:45 03/08/2020 9:45 Unknown AM ASSISTANT BASEBALL COACH AM ASSISTANT BASEBALL COACH [facility] - 03/09/2020 8:31 AM CS T The [id number] mutation in the Prothrombin (Factor II) gene is the second most common inherited risk factor for thrombosis. Individuals who have one copy of the mutation are at a 3-6 fold increased risk fo r thrombosis and individuals who have tw o copies are at an even more increased risk. This is a PCR assay using the [employer] ert Factor II and Factor V kit. Denisha Serna APRN, CNP LAB_1 Performing Organization Address [facility] e Number [address] [address] Antithrombin 3 Activity (03/08/2020 9:45 AM ASSISTANT BASEBALL COACH) P athologist Signature Antithrombin 3 86 75 - 127 % 03/09/2020 [facility] Activity 10:28 AM [facility] Specimen Anatomical Collection Method / Collection Time Recei andrade Time (Source) Location / Volume Laterality Blood Venipuncture / 03/08/2020 9:45 03/08/2020 9:45 Unknown AM ASSISTANT BASEBALL COACH AM ASSISTANT BASEBALL COACH Denisha Serna APRN, CNP LAB_1 Performing Organization Address [facility] Phon e Number [address] [address] TP/Crea Ratio, Urine (03/08/2020 9:45 AM ASSISTANT BASEBALL COACH) athologist Signature Total Protein, 7 0 - 14 03/08/2020 [facility] Urine, Random mg/dL 1:45 PM [facility] Creatinine, 79 >20 mg/dL 03/08/2020 [facility] Urine, Random 1:45 PM [facility]BALL [facility] TP/Creat 0.09 0.00 - 03/08/2020 [facility] Ratio, Urine 0.20 1:45 PM ASS[facility] BASEBALL [facility] Random Specimen Anatomical Collection Method Collection Time Receive d Time (Source) Location / / Volume Laterality Urine Non-blood 03/08/2020 9:45 AM 9:45 Collection / ASSISTANT BASEBALL COACH AM ASSISTANT BASEBALL COACH Unknown Narrative [facility] - 03/08/2020 1:45 P M ASSISTANT BASEBALL COACH Low urine creatinine values coupled with low urine protein values can artifactually increase the urine protein/creatinine re sults. Correlate results of ratio with creatinine results. Denisha Fenton Daphne NICK CNP LAB_1 Performing Organization Address City/State/ZIP Code Phon e Number [facility] [address] [place] [address] (ABNORMAL) Creatinine / GFR (03/08/2020 9:45 AM ASSISTANT BASEBALL COACH) [facility] Signature Creatinine 0.50 (L) 0.55 - 03/08/2020 [facility] 1.02 mg/dL 12:56 PM [facility] GFR, Estimated >60 >60 03/08/2020 [facility] mL/min/1.7 12:56 PM [facility]BALL [facility] 3m2 Specimen Anatomical Collection Method / Collection Time Recei andrade Time (Source) Location / Volume Laterality Blood Venipuncture / 03/08/2020 9:45 03/08/2020 9:45 Unknown AM ASSISTANT BASEBALL COACH AM ASSISTANT BASEBALL COACH Denisha Fenton Daphne NICK CNP LAB_1 Performing Organization Address City/State/ZIP Code Phon e Number [facility] [address] [place] [address] AST (03/08/2020 9:45 AM ASSISTANT BASEBALL COACH) athologist Signature AST (SGOT) 10 10 - 40 U/L 03/08/2020 [facility] 12:56 PM [facility]BALL [facility] Specimen Anatomical Collection Method / Collection Time Recei andrade Time (Source) Location / Volume Laterality Blood Venipuncture / 03/08/2020 9:45 03/08/2020 9:45 Unknown AM ASSISTANT BASEBALL COACH AM ASSISTANT BASEBALL COACH Denisha Fenton Daphne NICK CNP LAB_1 Performing Organization Address City/State/ZIP Code Phon e Number [facility] [address] [place] [address] ALT (SGPT) (03/08/2020 9:45 AM ASSISTANT BASEBALL COACH) P athologist Signature ALT (SGPT) <10 0 - 55 U/L 03/08/2020 [facility] 12:56 PM [facility]BALL [facility] Specimen Anatomical Collection Method / Collection Time Recei andrade Time (Source) Location / Volume Laterality Blood Venipuncture / 03/08/2020 9:45 03/08/2020 9:45 Unknown AM ASSISTANT BASEBALL COACH AM ASSISTANT BASEBALL COACH Denisha Fenton Daphne NICK CNP LAB_1 Performing Organization Address City/State/ZIP Code Phon e Number [facility] [address] [place] [address] Drugs of Abuse Screen, Urine, w/ conf (03/08/2020 9:45 AM ASSISTANT BASEBALL COACH) Patholo gist Method Time Signature Amphetamines Not Not 03/08/2020 [facility] Screen Detected Detected 1:23 PM [facility] Barbiturates Not Not 03/08/2020 [facility] Screen Detected Detected 1:23 PM [facility] Benzodiazepines Not Not 03/08/2020 [facility] Screen Detected Detected 1:23 PM [facility] Buprenorphine Not Not 03/08/2020 [facility] Screen Detected Detected 1:23 PM [facility] Cocaine Metabolite Not Not 03/08/2020 [facility] Screen Detected Detected 1:23 PM [facility] Methadone Screen Not Not 03/08/2020 [facility] Detected Detected 1:23 PM [facility] Opiates Screen Not Not 03/08/2020 [facility] Detected Detected 1:23 PM [facility] Oxycodone Screen Not Not 03/08/2020 [facility] Detected Detected 1:23 PM [facility] Phencyclidine Not Not 03/08/2020 [facility] (PCP) Screen Detected Detected 1:23 PM [facility] THC (Marijuana) Not Not 03/08/2020 [facility] Metab Screen Detected Detected 1:23 PM [facility] Creatinine, Urine, 79 >20 mg/dL 03/08/2020 [facility] Random 1:23 PM [facility] Specimen Anatomical Collection Method Collection Time Receive d Time (Source) Location / / Volume Laterality Urine Non-blood 03/08/2020 9:45 AM 9:45 Collection / ASSISTANT BASEBALL COACH AM ASSISTANT BASEBALL COACH Unknown Narrative [facility] - 03/08/2020 1:23 P M ASSISTANT BASEBALL COACH The absence of expected drug(s) and/or d rug metabolite(s) may indicate non-compliance, inappropriate timing of specimen collection relative to drug administration, poor drug absorption, di luted/adulterated urine or limitations of testing. The concentration must be great er than or equal to the cutoff concentration to be reported as positive. For medical purposes only: not valid for forensic, legal, or employment use. Denisha Serna APRN, CNP LAB_1 Performing Organization Address [facility] Phon e Number [facility] [address] [place] [address] (ABNORMAL) Urine Culture (03/08/2020 9:45 AM ASSISTANT BASEBALL COACH) [facility] Method Time Signature Urine Culture Growth (A) 03/09/2020 [facility] 4:[address] [facility] Urine Culture >100,000 CFU/mL 03/09/2020 [facility] Multiple 4:[address] [facility] Bacterial Morphotypes Specimen Anatomical Collection Method Collection Time Receive d Time (Source) Location / / Volume Laterality Urine URINE SPECIMEN Non-blood 03/08/2020 9:45 AM 021 9:45 COLLECTION, CLEAN Collection / ASSISTANT BASEBALL COACH AM ASSISTANT BASEBALL COACH CATCH / Unknown Unknown Denisha Serna APRN, CNP LAB_1 Performing Organization Address City/[facility]/ZIP Code Phon e Number [address] [address] Urinalysis Routine(Micro If Pos) (03/08/2020 9:45 AM ASSISTANT BASEBALL COACH) [facility] Method Time Signature Urine Color Straw Straw-Yellow 03/08/2020 [facility] 11:32 AM LABORATORY ASSISTANT BASEBALL COACH Urine Clarity Clear Clear 03/08/2020 [facility] 11:32 AM LABORATORY ASSISTANT BASEBALL COACH Specific 1.025 1.005 - 03/08/2020 [facility] [place], 1.030 11:32 AM LABORATORY Urine ASSISTANT BASEBALL COACH PH Urine 7.0 5.0 - 8.0 03/08/2020 [place] 11:32 AM LABORATORY ASSISTANT BASEBALL COACH Protein, Negative Neg/Trace 03/08/2020 [place] Urine Qual 11:32 AM LABORATORY (mg/dL) ASSISTANT BASEBALL COACH Glucose Urine Negative Negative 03/08/2020 [facility] Qual (mg/dL) 11:32 AM LABORATORY ASSISTANT BASEBALL COACH Ketones, Negative Negative 03/08/2020 [facility] Urine (mg/dL) 11:32 AM LABORATORY ASSISTANT BASEBALL COACH Urobilinogen, 0.2 <2.0 03/08/2020 [facility] Urine (EU/dL) 11:32 AM LABORATORY ASSISTANT BASEBALL COACH Bilirubin Negative Negative 03/08/2020 [facility] Urine 11:32 AM LABORATORY ASSISTANT BASEBALL COACH Blood, Urine Negative Neg/Trace 03/08/2020 [place] 11:32 AM LABORATORY ASSISTANT BASEBALL COACH Nitrite Urine Negative Negative 03/08/2020 [place] 11:32 AM LABORATORY ASSISTANT BASEBALL COACH Leukocyte Negative Negative 03/08/2020 [place] Est. 11:32 AM LABORATORY ASSISTANT BASEBALL COACH Urine Source Clean Catch 03/08/2020 [facility] 11:32 AM LABORATORY ASSISTANT BASEBALL COACH Specimen Anatomical Collection Method Collection Time Receive d Time (Source) Location / / Volume Laterality Urine URINE SPECIMEN Non-blood 03/08/2020 9:45 AM 9:45 COLLECTION, CLEAN Collection / ASSISTANT BASEBALL COACH AM ASSISTANT BASEBALL COACH CATCH / Unknown Unknown Denisha Serna APRN, CNP LAB_1 Performing Organization Address City/State/ZIP Code Phon e Number [facility] [address] [place] [address] Rubella Immune Status, IgG (03/08/2020 9:45 AM ASSISTANT BASEBALL COACH) P athologist Signature Rubella Units 12.50 03/08/2020 [facility] 1:36 PM [facility] Comment: The magnitude of the measured r esult, above the cutoff, is not indicative of the amount of antibody present. Rubella Intepretation Immune Immune 03/08/2020 1:3 6 PM ASSISTANT BASEBALL COACH [facility] Specimen Anatomical Collection Method / Collection Time Recei andrade Time (Source) Location / Volume Laterality Blood Venipuncture / 03/08/2020 9:45 03/08/2020 9:45 Unknown AM ASSISTANT BASEBALL COACH AM ASSISTANT BASEBALL COACH Denisha Serna APRN, CNP LAB_1 Performing Organization Address [facility] Phon e Number [facility] [address] [place] [address] Treponema Screen (03/08/2020 9:45 AM ASSISTANT BASEBALL COACH) [facility] Signature Treponema Screen 0.039 {s_co_ratio 03/08/2020 [facility] Result } 1:29 PM [facility]BALL [facility] LAB[facility]ORY Treponema Screen Non Non 03/08/2020 [facility] Interpretation Reactive Reactive 1:29 PM [facility] Specimen Anatomical Collection Method / Collection Time Recei andrade Time (Source) Location / Volume Laterality Blood Venipuncture / 03/08/2020 9:45 03/08/2020 9:45 Unknown AM ASSISTANT BASEBALL COACH AM ASSISTANT BASEBALL COACH Denisha Fenton Daphne NICK CNP LAB_1 Performing Organization Address [facility] Phon e Number [facility] [address] [place] [address] HIV 1/2 Ag/Ab 4th Generation (03/08/2020 9:45 AM ASSISTANT BASEBALL COACH) [facility] Signature HIV 1/2 Negative Negative 03/08/2020 [facility] Antigen/Antib (Non (Non 1:15 PM ASSIST[facility] BASEBALL CO[facility] LAB[facility] shellie (4th Reactive) Reactive) generation) Comment: HIV-1 p24 Antigen and HIV-1/HIV -2 Antibody not detected Specimen Anatomical Collection Method / Collection Time Recei andrade Time (Source) Location / Volume Laterality Blood Venipuncture / 03/08/2020 9:45 03/08/2020 9:45 Unknown AM ASSISTANT BASEBALL COACH AM ASSISTANT BASEBALL COACH Denisha Fenton Daphne NICK CNP LAB_1 Performing Organization Address [facility] Phon e Number [facility] [address] [place] [address] HEP B SURFACE ANTIGEN, NO REFLEX (03/08/2020 9:45 AM ASSISTANT BASEBALL COACH) [facility] Signature Hepatitis B Negative Negative 03/08/2020 [facility] Surface (Non (Non 1:15 PM [facility]BALL [facility] LAB[facility]ORY Antigen Reactive) Reactive) Specimen Anatomical Collection Method / Collection Time Recei andrade Time (Source) Location / Volume Laterality Blood Venipuncture / 03/08/2020 9:45 03/08/2020 9:45 Unknown AM ASSISTANT BASEBALL COACH AM ASSISTANT BASEBALL COACH Denisha Fenton Daphne NICK CNP LAB_1 Performing Organization Address [facility] Phon e Number [facility] [address] [place] [address] Antibody Screen (03/08/2020 9:45 AM ASSISTANT BASEBALL COACH) [facility] Method Time Signature Antibody Screen Negative 03/08/2020 [facility] Interpretation 1:33 PM ASSISTANT BASEBALL COACH BLOOD BANK Specimen Anatomical Collection Method / Collection Time Recei andrade Time (Source) Location / Volume Laterality Blood Venipuncture / 03/08/2020 9:45 03/08/2020 9:45 Unknown AM ASSISTANT BASEBALL COACH AM ASSISTANT BASEBALL COACH Denisha Fenton Daphne NICK CNP LAB_1 Performing Organization Address [facility] Phon e Number [facility] [address] [place] [id number] Blood Group & RH (Blood Type) (03/08/2020 9:45 AM ASSISTANT BASEBALL COACH) athologist Signature ABO A 03/08/2020 [facility] 1:15 PM ASSISTANT BASEBALL COACH BLOOD BANK RH Positive 03/08/2020 [facility] 1:15 PM ASSISTANT BASEBALL COACH BLOOD BANK Specimen Anatomical Collection Method / Collection Time Recei andrade Time (Source) Location / Volume Laterality Blood Venipuncture / 03/08/2020 9:45 03/08/2020 9:45 Unknown AM ASSISTANT BASEBALL COACH AM ASSISTANT BASEBALL COACH Denisha Fenton Daphne NICK CNP LAB_1 Performing Organization Address [facility] Phon e Number [facility] [address] [place] [address] (ABNORMAL) HGB A1C (03/08/2020 9:45 AM ASSISTANT BASEBALL COACH) [facility] Method Time Signature Hemoglobin A1C 6.9 (H) <=5.6 % 03/08/2020 [facility] 1:36 PM ASSISTANT BASEBALL COACH CENTRAL LAB Specimen Anatomical Collection Method / Collection Time Recei andrade Time (Source) Location / Volume Laterality Blood Venipuncture / 03/08/2020 9:45 03/08/2020 9:45 Unknown AM ASSISTANT BASEBALL COACH AM ASSISTANT BASEBALL COACH Narrative [facility] CENTRAL LAB - 03/08/2020 1:36 PM ASSISTANT BASEBALL COACH For patients not previously diagnosed with diabetes: 5.7-6.4%: Increased risk for diabetes 6.5% and greater: Diagnostic for diabete s For patients diagnosed with diabetes: <8.0%: Goal of therapy for ages 18-75 Clinicians may recommend a higher or low er goal for specific individuals. Denisha Serna APRN, INDUSTRIAL MECHANIC LAB_1 Performing Organization Address City/State/ZIP Code Phon e Number [facility] CENTRAL [facility] [address] [address] documented in this encounter Visit Diagnoses Diagnosis Screening for diabetes mellitus Encounter for blood typing screening for isoimmunization Screening for blood disease Screening for unspecified disorder of bl ood and blood-forming organs Screening examination for venereal disea se Screening examination for rubella Supervision of other high risk , antepartum Encounter for drug screening History of pulmonary embolism Personal history of pulmonary embolism documented in this encounter Care Teams End Polisher Relationship Specialty Start Date End Date Palmira Lim MD PCP - General 05/08/[address] [place] [address] documented as of this encounter
--- OUTSIDE RECORDS SUMMARY | 2021-12-08 10:27 | XMS_ITS | Encounter Summary ---
:2000 Author Organization [employer] Address [address] [place] [address] Care Team Providers Name Role Phone Palmira Lim MD Primary Care Provider Encounter Details Date Type Department Care Team Description 01/16/2020 Notes/Orders [facility] [address] Sonja Beltran, FRAME CHANGER, Endocrinology INSTALL AND REPAIR TECHNICIAN [address] [place] [address] [place], [place] [id number] (Wo rk) Social History Tobacco Use Types [...] documented as of this encounter Progress Notes Aleida Pace, RN - 01/16/2020 8:55 AM CST Pharmacy called requesting a PA for Pt's Tresiba. One was initiated today. HOLDER documented in this encounter Plan of Treatment Not on filedocumented as of this encounter Visit Diagnoses Not on filedocumented in this encounter Care Teams Web Site Admin Relationship Specialty Start Date End Date Palmira Lim MD PCP - General 05/08/[address] [place] [address] documented as of this encounter
--- OUTSIDE RECORDS SUMMARY | 2021-12-08 10:27 | XMS_ITS | Encounter Summary ---
:2000 Author Organization [employer] Address [address] [place] [address] Care Team Providers Name Role Phone Palmira Lim MD Primary Care Provider Reason for Visit Reason Comments LAB RESULTS Encounter Details Date Type Department Care Team Description 01/18/2020 Telephone [facility]'s O'Nabila Jordan MD LAB RESULTS Services-WHEAT CLEANER [address] [place] [id number] [place] [address] [address] [place] [address] [phone] Social History Tobacco Use Types Packs/Day Years [...] of this encounter Nursing Notes Twila Suarez 01/18/2020 10:38 AM CST Called patient, reviewed provider's note below. Patient verbalizes understanding and agrees with plan. Transfer to [facility] to schedule ultrasound and appointment. Scheduling number for 1st OB visit given to patient as well. AL REPRESENTATIVE Twila Suarez - 01/18/2020 10:37 AM CST ----- Message from Nabila Stokes MD sent at 01/18/2020 10:29 AM RENTAL REPRESENTATIVE ----- Can we please call the patient and let her know that her beta HCG level was 35,000, which is high enough to where we should be able to see early with a transvaginal ultrasound. I did discuss this with her yesterday. A maternal medicine ultrasound was placed to hopefully correlate with the Maternal- medicine consultation given her uncontrolled diabetes, as well as thyroid disorder. Please let the patient know that her most recent hemoglobin A1c is 11.2. In addition, endocrinologyalso did complete thyroid screening which was elevated. Please have the patient reach out to her endocrinology office to review these results and the recommendations as soon as she is able. The patient should follow-up in approximately 3-4 weeks for a new OB 1 intake visit. Can we please help her schedule? Please and thank you! AL REPRESENTATIVE documented in this encounter Plan of Treatment Not on filedocumented as of this encounter Visit Diagnoses Not on filedocumented in this encounter Care Teams Track Fitter Relationship Specialty Start Date End Date Palmira Lim MD PCP - General 05/08/06 [address] [place] [address] documented as of this encounter
--- OUTSIDE RECORDS SUMMARY | 2021-12-08 10:27 | XMS_ITS | Encounter Summary ---
:1999 Author Organization [employer] Address [address] [place] [address] Care Team Providers Name Role Phone Palmira Lim MD Primary Care Provider Reason for Visit Reason Comments Follow-up DIABETES, MELLITUS Encounter Details Date Type Department Care Team Description 01/20/2020 Telemedicine [place] Sonja Beltran, Type 1 diabe yosi mellitus without complication (HRC) (Primary Dx); Endocrinology NON CATEGORICAL PRESCHOOL TEACHER, INGREDIENT SPECIALIST Subclinical hypothyroidism; [id number] Pre-existing diabetes mellit [place] during [place] [address] [address] [phone] [place] [address] Social History Tobacco Use Types [...] encounter Progress Notes Aleida Pace, RN - 01/20/2020 11:00 AM CST Pre-Visit Planning for Phone/Video Visit: Diabetes Pre-visit planning completed. Reviewed the following: - Medications (pended refills)-Done - Pharmacy-Done - Allergies-Done - Last foot & eye exam-Done - Tobacco/alcohol use-Done Current Diabetes Medications Tresiba 32 units daily Novolog 1/6grams plus 1/40 greater then 140 Patient Concerns: None. PT WILL CALL BACK WITH METER READINGS RVISOR METAL HANGING Shaji Villatoro - 01/20/2020 11:00 AM CST Called patient for prep. No answer. Left VM to call back. RVISOR METAL HANGING Sonja Beltran APRN, INGREDIENT SPECIALIST - 01/20/2020 11:00 AM CST ATTEMPTED VIDEO CALL. No answer at 1108 am Attempted video call again 1115 am, Got VM. Left msg for pt to call Attempted regular phone call 1124am.- pt then called me back . January 20, 2020 Chief Complaint: Nabila Serna a 19 y.o. female is contacted for follow up of Type 1 diabetes. Last saw Pita Salinas 09/2018/ Dr. Maldonado a year ago, I met her by phone . Last spoke with her 01/13/2020 right after she found out she was . Today's office visit is by video.Total phone time: 26 min History of Present Illness: Subjective: Diagnosed with diabetes: 2016 Complications:No known chronic microvascular complications of diabetes. A1c 01/17/2020 11.2%. She is unexpectedly . LMP 11/27/2019. Pt is using MDI. Pt applied for and now has MA. Back on Dexcom just 2 days ago. Other health issues: ADD. Subclinical hypothyroidism history. Patient has not been on any levothyroxine lately. Indicates ???Yonatan not know what is wrong with my thyroid?? . TSH on 01/17/2020 was 9.11. FT4 0.6 Will start levothyroxine today. Last eye exam: Over a year ago Foot exam: 06/[address] Martin, normal exam. Social history: Tobacco: reports that she has quit smoking. Her smoking use included cigarettes. She has a 0.25 pack-year smoking history. She has never used smokeless tobacco. 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 Has not had [...] take her NovoLog insulin prior to meals. Current Diabetes Treatment Regimen: Tresiba 32 units each night at midnight. States this is easiest to remember.. NL is now more consistently 1/6 grams plus 1/40 over 140 Has been using [employer] to look up foods and count carbs more in the last week. Full med list reviewed in [facility]. No other meds. Objective: Female patient, appears somewhat sleepy by video.. ALert and oriented, smiling. Glucose Monitoring: Home glucose monitorin and half days of Dexcom data. 135+/-45. 77% of her time between 70 and 180. 3% of her time low. 3% of her time very high. There is a clear pattern of her blood glucose levelrising somewhat precipitously while she is sleeping. This has happened for the last 2 times that shehas been sleeping. No severe hypoglycemia. Last A1c: Lab Results Component Value Date Hemoglobin A1C 11.2 (H) 01/17/2020 Hemoglobin A1C, POC 9.4 (A) 10/20/2018 Last [...] 1 diabetes mellitus without complication (HRC) 2. Subclinical hypothyroidism (HRC) 3. Pre-existing diabetes mellitus during in first trimester Plan: 1. PA for Tresiba. She supposedly has to try and fail Lantus and Levemir. She has been on Lantus in the past, Tresiba works much better for her with her nightclub manager. Now that she is I do not want her to try Levemir. 2. Pt to start Levothyroxine 125 mcg daily. Check TSH in 4 weeks. 3. Decrease Tresiba to 30 units once at midnight daily. 4. Add NPH 6 units right before sleep each day. 5. Follow up in 10-14 days. Call sooner if BGs over 180 or under 65. RVISOR METAL HANGING documented in this encounter Plan of Treatment Not on filedocumented as of this encounter Results (ABNORMAL) Hemoglobin A1C Glycosylated (03/06/2020 3:33 PM SUPERVISOR METAL HANGING) [facility] gist Method Time Signature Hemoglobin A1C 6.9 (H) <=5.6 % 03/07/2020 [facility] 8:13 AM SUPERVISOR METAL HANGING CENTRAL LAB Specimen Anatomical Collection Method / Collection Time Recei andrade Time (Source) Location / Volume Laterality Blood Venipuncture / 03/06/2020 3:33 03/06/2020 3:33 Unknown PM SUPERVISOR METAL HANGING PM SUPERVISOR METAL HANGING Narrative [facility] - 03/07/2020 8:13 AM SUPERVISOR METAL HANGING For patients not previously diagnosed with diabetes: 5.7-6.4%: Increased risk for diabetes 6.5% and greater: Diagnostic for diabete s For patients diagnosed with diabetes: <8.0%: Goal of therapy for ages 18-75 Clinicians may recommend a higher or low er goal for specific individuals. Sonja Beltran APRN, CNP LAB_1 Performing Organization Address City/State/ZIP Code Phon e Number [facility] [address] [address] TSH with Free T4 (if TSH Abnormal) (03/06/2020 3:33 PM SUPERVISOR METAL HANGING) athologist Signature TSH, Reflex 3.21 0.30 - 4.50 03/06/2020 [facility] uIU/mL 7:25 PM SUPERVISOR METAL HANGING LABORATORY Specimen Anatomical Collection Method / Collection Time Recei andrade Time (Source) Location / Volume Laterality Blood Venipuncture / 03/06/2020 3:33 03/06/2020 3:33 Unknown PM SUPERVISOR METAL HANGING PM SUPERVISOR METAL HANGING Narrative [facility] - 03/06/2020 7:25 P M SUPERVISOR METAL HANGING Lab will automatically reflex to Free T4 when TSH results are <0.30 uIU/mL or >4.50 mIU/mL. Sonja Beltran APRN, INGREDIENT SPECIALIST LAB_1 Performing Organization Address City/State/ZIP Code Phon e Number [facility] [address] [place] [address] documented in this encounter Visit Diagnoses Diagnosis Type 1 diabetes mellitus without complic ation (HRC) - Primary Type I (juvenile type) diabetes mellitus without mention of complication, not stated as uncontrolled Subclinical hypothyroidism Other specified acquired hypothyroidism Pre-existing diabetes mellitus during pr egnancy in first trimester documented in this encounter Care Teams Ciso Relationship Specialty Start Date End Date Palmira Lim MD PCP - General 05/08/[address] [place], [place] [address] documented as of this encounter
--- OUTSIDE RECORDS SUMMARY | 2021-12-08 10:27 | XMS_ITS | Encounter Summary ---
:2000 Author Organization [facility] Address [address] [place] [address] Care Team Providers Name Role Phone Palmira Lim MD Primary Care Provider Reason for Referral Consult/Transfer Care (Routine) - Closed Specialty Diagnoses / Procedures Referred By Contact Refer red To Contact Diagnoses Supervision of other high risk , antepartum History of pulmonary embolism Denisha Serna APRN, CNP [id number] [place] [address] Referral ID Status Reason Start Date Expiration Date Visits Requ ested Visits Authorized [id number] Closed 03/08/2020 06/07/2021 1 1 Scheduling Instructions Your provider has recommended an appoint ment with [facility]. You may call [phone] to s chedule your appointment. We suggest you call your health insurance company about your coverage and benefits for this appointment. TLE MAINTERNANCE LABORER Consult/Transfer Care (Routine) - Closed Specialty Diagnoses / Procedures Referred By Contact Refer red To Contact Diagnoses Supervision of other high risk , antepartum Denisha Serna APRN, CNP [id number] [place] [id number] Referral ID Status Reason Start Date Expiration Date Visits Requ ested Visits Authorized [id number] Closed 03/08/2020 06/07/2021 1 1 Scheduling Instructions Your provider has recommended an appoint ment with [facility]. You may call [phone] to s chedule your appointment. We suggest you call your health insurance company about your coverage and benefits for this appointment. TLE MAINTERNANCE LABORER Reason for Visit Reason Comments INITIAL VISIT Encounter Details Date Type Department Care Team Description 03/08/2020 Initial [facility] Denisha Serna I NITIAL Services-ENTRY LEVEL ELECTRICIAN MITZI NICK VISIT [address] [address] [facility], [address] [place], [place] [id number] Social History Tobacco Use Types Packs/Day Years Used Date Smoking Tobacco: Former Cigarettes 0.3 1 Smokeless Tobacco: Never Alcohol Use Standard Drinks/Week Comments Not Currently 0 (1 standard drink = 0.6 oz pure alcoho l) on [facility] Alcohol Habits Answer Date Recorded How often [...] Sign Reading Time Taken Comments Blood Pressure 115/62 03/08/2020 7:59 AM TRESTLE MAINTERNANCE LABORER Pulse 115 03/08/2020 7:59 AM TRESTLE MAINTERNANCE LABORER Temperature - - Respiratory Rate - - Oxygen Saturation - - Inhaled Oxygen Concentration - - Weight 73.5 kg (162 lb) 03/08/2020 8:29 PM TRESTLE MAINTERNANCE LABORER Height 162.6 cm (5' 4) 03/08/2020 8:29 PM TRESTLE MAINTERNANCE LABORER Body Mass Index 27.81 03/08/2020 8:29 PM TRESTLE MAINTERNANCE LABORER documented in this encounter Progress Notes Denisha Serna APRN, CNP - 03/08/2020 8:00 AM TRESTLE MAINTERNANCE LABORER Addended by: DENISHA SERNA on: 03/08/2020 09:01 PM Modules accepted: Orders TLE MAINTERNANCE LABORER Denisha Serna, SANDOVAL, MITZI - 03/08/2020 8:00 AM CST CHIEF COMPLAINT: New Ob Visit SUBJECTIVE: Nabila Serna is a 19-year-old female, G 1 P0000. This is her initial care visit. The verbal intake portion of the visit was conducted telemedicine given current Covid outbreak. 01/17/2020 patient was evaluated by Dr. Stokes for confirmation, see visit. Type 1 diabetic with unplanned . Diabetes diagnosed age 15. History of DKA in 2018 with hospitalization. She was advised to follow up with endocrinology. She was evaluated by Endocrine on 01/20/2020 and 02/03/2020, see appointments. At her most recent 02/13/2020 endocrine appointment with DIRECTOR OF EXTENSION WORK Eula Peterson, the report stated the following: --Diagnosed with diabetes: 2016. Complications:No known chronic microvascular complications of diabetes. --She applied for medical assistance. She restarted Dexcom. Sonja suggested adding NPH before sleep at her last visit. She was told by pharmacy that NPH insulin was not covered. She did not start it. She did increase her Tresiba from 32-34 daily. --Last eye exam over a year ago. --Foot exam 06/2018 normal. --Home glucose monitoring: Dexcom data over the last 2 weeks shows an average of 158+/-76. 59% of her time in range, 5% of her time low, 1% of her time urgent low. She is sometimes having lows at work about 3-4 hours after her meals--pre next meal. She is spiking quite a bit after her meals. Meals areextremely variable in time and content. She is trying to count carbs in his utilizing resources to do so. Fasting levels have been everywhere between low and 130. Patient has a hard time seeing any specific patterns. Note fasting can be anywhere between about noon and 4:00 p.m.. No severe hypoglycemia. --Plan 1. Hold off on NPH before sleep for now. Patient is having some hypoglycemia fasting lately. 2. Decrease Tresiba slightly back to 32 units once a day to reduce incidence of hypoglycemia pre meals 3. Increase NovoLog to 1 unit for every 5 g of carb taken as early as possible before meals. This issometimes difficult at work. She will continue 1 extra for every 40/140 before meals as well. 4. Follow-up in 2 weeks and 4 weeks. 5. Refer to [facility] for review of carbohydrate counting and to help her get some ideas about healthy meal planning with such an unusual schedule. 6. Recheck TSH and A1c in mid to late January. LMP: 11/27/2019 (exact dates). Date of positive test: 01/10/2020. Menstrual cycles interval: Monthly but could be a 7 day difference. EDC based on LMP 2020. Dating ultrasound: 01/23/2020 ultrasound measured 7 week 3 days, EDC 09/07/2020, FHR 150. 03/06/2020 measured 13 week 4 day gestational age, anatomy normal, NT 1.9 mm. Working EDC is 09/07/2020 based on ultrasound. Today's gestational age: 14 weeks 1 day. Current symptoms: -Vaginal bleeding: No. -Cramping: light cramping. Thinks it is related to constipation and gas. Moved bowels every 2-3 dayssmall amount. -Nausea: No. Emesis: No. BMI 27. Type 1 DM: Today she states that she is following the above plan from her most recent endocrine appointment. Her next follow-up visit with ESAU Peterson is tomorrow. She has the dietitian appointment todayand was unaware of the visit. This is scheduled telemedicine and will be available today for the appointment. Hypothyroid: Not using synthroid. Does not know when to take on an empty stomach. Will check TSH today and advised to start rx. May discuss with dietary today for stragetic time to take rx based off her eating schedule. -ADD: Adderall was started in 2nd grade in use through high school.. Started having side effects of her bowel feeling dry and she did want to eat. Stop the prescription. Overall, she feels her mood is stable. EPDS score 2. No thoughts of self-harm. -Genital herpes. Recent outbreak occurred and has now resolved. This was her first one since initialoutbreak. No rx used. OBHX: OB History Para Term AB Living 1 0 0 0 0 0 SAB TAB Ectopic Multiple Live Births 0 0 0 0 0 # Outcome Date GA Lbr Sathya/2nd Weight Sex Delivery Anes PTL Lv 1 Current Medications: Current Outpatient Medications Medication Sig Note Dispense Refill ??? aspirin 81 MG chewable tablet Chew and swallow 1 Tablet by mouth daily. (Patient not taking: Reported on 03/08/2020) 90 Tablet 2 ??? Continuous Blood Gluc Sensor (DEXCOM G6 SENSOR) MISC Take 1 Each as instructed every 10 days. 9 Each 3 ??? Continuous Blood Gluc Transmit (DEXCOM G6 TRANSMITTER) MISC Take 1 Each as instructed daily. 1 Each 3 ??? docusate sodium (COLACE) 100 MG capsule Take 1 Capsule by mouth two times a day. (Patient not taking: Reported on 03/08/2020) 30 Capsule 1 ??? insulin aspart (NOVOLOG FLEXPEN) 100 UNIT/ML [...] Diabetes Mellitus) 45 mL 3 ??? insulin degludec (TRESIBA FLEXTOUCH) 200 UNIT/ML SOPN Inject 32 Units subcutaneously daily. (Patient not taking: Reported on 03/08/2020) 12 mL 0 ??? Insulin Degludec (TRESIBA) 100 UNIT/ML SOLN 30 units daily (Patient taking differently: 32 unitsdaily) 01/13/2020: 32 units 15 mL 3 ??? insulin NPH, human isophane, (HUMULIN NPH) 100 UNIT/ML injection Inject 6 Units subcutaneously daily. Once daily right before sleep (Patient not taking: Reported on 03/08/2020) 15 mL 0 ??? insulin pen needle 31G X 5 MM Inject 1 Each subcutaneously five times a day. 500 Each 2 ??? levothyroxine (SYNTHROID) 125 MCG tablet Take 1 Tablet by mouth daily. (Patient not taking: Reported on 02/02/2020) 90 Tablet 3 ??? methylcellulose (CITRUCEL) oral powder 1 tablespoon mixed with water by mouth daily (Patient nottaking: Reported on 03/08/2020) 245 g 0 ??? vitamin-ferrous fumarate-folic acid (PRENATALPLUS) 27-1 MG tablet Take 1 Tablet by mouth daily. No current facility-administered medications for this visit. Allergy: Allergies Allergen Reactions ??? Shrimp (Diagnostic) Breathing Difficulty and Other, see comments Lips swelling PMH: Past Medical History: Diagnosis Date ??? ADD (attention deficit disorder) ??? Chlamydia (HRC) ??? DKA (diabetic ketoacidoses) (HRC) 2018 ??? Herpes genitalia (HRC) ??? History of tobacco use ??? Hypothyroid (HRC) ??? Pulmonary embolus (HRC) 2018 During DKA hospitalization, smoking / Nexplanon control used ??? Type 1 diabetes mellitus without complication (HR) 05/11/2018 Dx 2016 Last pap smear: none. History of abnormal: no. Hx of LEEP/Cryo: no. Immunizations: -- Varicella as a child: vaccinated -- Flu shot: plans today Infections: -- History of STDs: yes, HSV and Chlamydia -- Hx of tuberculosis: no, lived with someone who had tuberculosis: No -- Hx of MRSA: no -- Cat exposure: no -- Hx of travel outside of [place]: None. Advised no travel to Zika infected areas for self or partner. Negative history of a blood transfusion. She would accept blood products if needed. PSH: Past Surgical History: Procedure Laterality Date ??? SURGICAL HX - NEG PFH: Family History Problem Relation Age of Onset ??? Cancer, Cervical Mother ??? No Known Problems Father Unaware of biological dads PMH ??? Cataract Negative Family History ??? Glaucoma Negative Family History ??? Macular Degeneration Negative Family History ??? Retinal Detachment Negative Family History ??? Amblyopia/Strabismus Negative Family History Genetic History: Genetic history section reviewed in EMR. Patient is not AMA at delivery. Mother's ethnicity: White, and Father's ethnicity: . This is his 1st child. Denies genetic conditions in her or the father of the baby's family history. -Pt has Type 1 DM Patient denies FHX of blood clots/clotting disorder. Patient explains that she had a pulmonary embolism when she was hospitalized with her diabetic ketoacidosis incident. States she was smoking at the time and also had the Nexplanon control device. The Nexplanon was removed at that time. Recalls having blood thinner medication in the hospital. No anticoagulant medication was prescribed thereafter per patient. Patient denies FHX of bleeding disorder. Social History: Marital status: Single. He is not involved. She does not have concerns for domestic violence. 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 She gets a break every hour. Covid precautions used including masks and sanitation of station. Lead screen: negative Positive history of drug use. History marijuana used and stopped with positive UPT. Last used December 2019. She was also a former smoker. Advised urine drug screen is collected today. Review of Systems: With the exception of any items noted above, the remainder of the complete ROS is negative. OBJECTIVE:Patient was offered a access developer for visit and declined. BP 115/62 (BP Location: Right Arm, BP Cuff Size: Regular) Pulse (!) 115 Ht 5' 4 (1.626 m) Wt 162 lb (73.5 kg) LMP 11/27/2019 (Exact Date) BMI 27.81 kg/m?? General: Patient alert, in NAD. HEENT: Pupils equal, sclera clear. Oropharynx normal. Neck: Supple, without thyromegaly or mass. Breasts: Normal in size and symmetry, normal in contour with no evidence of flattening or dimpling, skin is normal, nipples are everted without rashes or discharge bilateral. Palpation is negative for tenderness or masses bilateral. CV: Regular rate and rhythm. No murmur. Resp: Clear to auscultation Abdomen: soft, non-tender, without masses or organomegaly Lymphatic: No neck, supraclavicular, axillary or groin lymphadenopathy. Lower Extremities: Full ROM, normal gait without edema, lesions, or deformity. Genitourinary: External genitalia: normal without lesions. Vagina: normal appearing vaginal epithelium, no discharge. No lesions. Cervix: No cervical motion tenderness, normal appearance without discharge or lesions. Pap deferred,GC/CT culture obtained. Uterus: 14 wk size, shape, consistency and nontender. FHTs: 154 . Adenexa: normal size, nontender, no masses. Anus: normal, no hemorrhoids. Rectal: deferred. Bladder: Nontender, no palpable masses Urethra: Nontender, no discharge Skin: No lesions. Neuro: Motor & sensory function all intact. Psychiatric: Alert & oriented with normal affect and insight. Patient does not appear depressed or anxious. ASSESSMENT: Supervision of high-risk Type 1 diabetes uncontrolled History diabetic ketoacidosis Hypothyroid General herpes History marijuana use Constipation PLAN: New OB labs including: CBC, blood type, antibody screen, rubella status, HIV, Hepatitis Bs antibody,Hepatitis Bs antigen, RPR, GC/CT, UA/UC, hemoglobin A1C, urine drug screen, thrombophilia panel, TSH, preeclampsia labs Medications: - PNV - aspirin 81 mg daily until delivery Flu vaccine today Referral: MFM consult for history of PE, type 1 diabetes [facility] Our Guide to Booklet given and sections reviewed. Discussed genetic screens,diagnostic tests per [place] [employer] Guidelines appropriate for age and history. Patient completed NT ultrasound. First-trimester screen pending. Plan for AFP and level 2 ultrasound. BMI: 27. Discussed diet and wt gain based on pre- BMI. BMI <18.5 (underweight) -- wt gain 28-40 # BMI 18.5 to 24.9 (normal weight) -- wt gain 25-35 # BMI 25.0 to 29.9 (overweight) -- wt gain 15-25 # BMI = 30 (obese) -- wt gain 11-20 # Pregestational diabetes: - Baseline HELLP labs - Opthalmology appointments in 1st and 3rd trimester - PPx baby Asa from 12-16 weeks through 36 weeks gestation - Baseline EKG ordered - Primary Log Chain Worker: Mil[facility] Log Chain Worker, Dr. Maldonado. Highly advised that patient keep all appointments as scheduled. - Growth US: Every 4 weeks starting at 28 weeks - testing: BPP weekly at 32 weeks for well controlled, 28 weeks for poorly controlled - Timing of delivery: Between [id number] for well controlled, [id number] for poorly controlled Hypothyroid. Start taking Synthroid as directed. Discuss with dietitian today when an optimal time will be to take it on empty stomach. TSH ordered today. General herpes. Call for outbreaks and will order Valtrex. Plan for Valtrex 36 weeks until delivery. History marijuana use. Complete cessation advised during . Constipation. Start MiraLax and Colace. Increase water. COVID-19 symptoms were reviewed and discussed who to call if concerns. Precautions reviewed. SAB precautions given. Follow-up in 2 weeks with MD khan. Additional time was spent reviewing medical history including uncontrolled diabetes, history of PE, ADD, herpes and discussing plan of care. She was also oriented to education noted in the [facility] Guide to Booklet. Dictation disclaimer: Some notes are completed with voice-recognition dictation software. Typographical errors may result. Please contact me via [facility] [facility] staff message if you note any errors requiring clarification. TLE MAINTERNANCE LABORER Denisha Serna APRN, CNP - 03/08/2020 8:00 AM CST Gonorrhea and Chlamydia labs negative. Patient will be notified with serum NOB results. They will also be reviewed at the NOB2 appointment. JUN TLE MAINTERNANCE LABORER Denisha Serna APRN, CNP - 03/08/2020 8:00 AM CST Addendum: 03/08/[address] Burr at 3:30 pm regarding NOB1 plan today and referral to [facility] for thrombophilia history. MS-[employer] CHIEF TLE MAINTERNANCE LABORER documented in this encounter Plan of Treatment Scheduled Orders Name Type Priority Associated Diagnoses Order S chedule ECG 12 Lead Outpatient EKG Routine Pre-existing type 1 diabetes Ordered: 03/08/2020 mellitus during in second trimester Scheduled Referrals Name Type Priority Associated Diagnoses Order S chedule CONSULT Referral Routine Supervision of other Or dered: 03/08/2020 high risk , antepartum Maternal Medicine Referral Routine Supervision of ot her Ordered: 03/08/2020 Consult high risk , antepartum History of pulmonary embolism documented as of this encounter Procedures Procedure Name Priority Date/Time Associated Diagnosis Comme nts CHLAMYDIA & GC (14 Routine 03/08/2020 9:57 AM Screening Res ults for this YEARS AND OLDER) TRESTLE MAINTERNANCE LABORER examination for procedur e are in venereal disease the results section. documented in this encounter Results CHLAMYDIA & GC (03/08/2020 9:57 AM TRESTLE MAINTERNANCE LABORER) Patholo gist Method Time Signature Chlamydia Not Not 03/08/2020 [facility] Trachomatis Detected Detected 8:07 PM TRESTLE MAINTERNANCE LABORER CENTRAL LAB STD N. gonorrhoeae Not Not 03/08/2020 [facility] STD Detected Detected 8:07 PM TRESTLE MAINTERNANCE LABORER CENTRAL LAB Specimen Anatomical Collection Method Collection Time Receive d Time (Source) Location / / Volume Laterality Swab STD ENTIRE ENDOCERVIX Non-blood 03/08/2020 9:57 AM 08/2020 / Unknown Collection / TRESTLE MAINTERNANCE LABORER 10:47 AM TRESTLE MAINTERNANCE LABORER Unknown Narrative [facility] - 03/08/2020 8:07 PM TRESTLE MAINTERNANCE LABORER Test performed by Molecular Detection Denisha Serna APRN, CNP LAB_1 Performing Organization Address City/State/ZIP Code Phon e Number [facility] [address] [address] (ABNORMAL) Free Protein S Antigen (03/08/2020 9:45 AM TRESTLE MAINTERNANCE LABORER) P athologist Signature Free Protein S 45 (L) 55 - 142 % 03/09/2020 [facility] Antigen 10:28 AM TRESTLE MAINTERNANCE LABORER [facility]OSPITAL Specimen Anatomical Collection Method / Collection Time Recei andrade Time (Source) Location / Volume Laterality Blood Venipuncture / 03/08/2020 9:45 03/08/2020 9:45 Unknown AM TRESTLE MAINTERNANCE LABORER AM TRESTLE MAINTERNANCE LABORER [facility] - 03/09/2020 10:[address] This [...] 2 months after or stopping estrogen. Denisha Serna APRN, CNP LAB_1 Performing Organization Address [facility] Phon e Number [address] [address] Protein C Activity (03/08/2020 9:45 AM TRESTLE MAINTERNANCE LABORER) P athologist Signature Protein C 127 62 - 148 % 03/09/2020 [facility] Activity 10:28 AM [facility] Specimen Anatomical Collection Method / Collection Time Recei andrade Time (Source) Location / Volume Laterality Blood Venipuncture / 03/08/2020 9:45 03/08/2020 9:45 Unknown AM TRESTLE MAINTERNANCE LABORER AM TRESTLE MAINTERNANCE LABORER Denisha Fenton Daphne NICK CNP LAB_1 Performing Organization Address [facility] e [address] [address] Factor V Leiden (03/08/2020 9:45 AM TRESTLE MAINTERNANCE LABORER) Patholo gist Method Time Signature Factor 5 No Mutation No Mutation 03/09/2020 [facility] Leiden Detected Detected 8:31 AM [facility] Factor 5 DNA testing 03/09/2020 [facility] indicates that 8:31 AM [facility] this individual is Negative for the Factor V Leiden [id number] mutation in the Factor V gene. This Negative result does Not rule out other mutations within the Factor V gene or other causes of thrombophilia Specimen Anatomical Collection Method / Collection Time Recei andrade Time (Source) Location / Volume Laterality Blood Venipuncture / 03/08/2020 9:45 03/08/2020 9:45 Unknown AM TRESTLE MAINTERNANCE LABORER AM TRESTLE MAINTERNANCE LABORER Pending sale to [facility] 03/09/2020 8:31 AM CS T Factor V [...] This is a PCR assay using the [employer] ert Factor II and Factor V kit. Denisha Fenton Daphne NICK CNP LAB_1 Performing Organization Address [facility] Phon e [address] [address] Factor 2 Mutation (03/08/2020 9:45 AM TRESTLE MAINTERNANCE LABORER) [facility] Method Time Signature Factor 2 No Mutation No Mutation 03/09/2020 [facility] Mutation Detected Detected 8:31 AM [facility] Factor 2 DNA testing 03/09/2020 [facility] Mutation indicates that 8:31 AM [facility] this individual is negative for the [id number] mutation in the Prothrombin/Fa ctor II gene. This negative result does not rule out the presence other mutations within the Prothrombin/Fa ctor II gene or other causes of thrombophilia. Specimen Anatomical Collection Method / Collection Time Recei andrade Time (Source) Location / Volume Laterality Blood Venipuncture / 03/08/2020 9:45 03/08/2020 9:45 Unknown AM TRESTLE MAINTERNANCE LABORER AM TRESTLE MAINTERNANCE LABORER [facility] - 03/09/2020 8:31 AM CS T The [id number] mutation in the Prothrombin (Factor II) gene is the second most common inherited risk factor for thrombosis. Individuals who have one copy of the mutation are at a 3-6 fold increased risk fo r thrombosis and individuals who have tw o copies are at an even more increased risk. This is a PCR assay using the [employer] ert Factor II and Factor V kit. Denisha Serna APRN, CNP LAB_1 Performing Organization Address [facility]/[address] [address] Antithrombin 3 Activity (03/08/2020 9:45 AM TRESTLE MAINTERNANCE LABORER) athologist Signature Antithrombin 3 86 75 - 127 % 03/09/2020 [facility] Activity 10:28 AM [facility] Specimen Anatomical Collection Method / Collection Time Recei andrade Time (Source) Location / Volume Laterality Blood Venipuncture / 03/08/2020 9:45 03/08/2020 9:45 Unknown AM TRESTLE MAINTERNANCE LABORER AM TRESTLE MAINTERNANCE LABORER Denisha Serna APRN, CNP LAB_1 Performing Organization Address [facility] e [address] [address] TP/Crea Ratio, Urine (03/08/2020 9:45 AM TRESTLE MAINTERNANCE LABORER) athologist Signature Total Protein, 7 0 - 14 03/08/2020 [facility] Urine, Random mg/dL 1:45 PM TRESTLE MAINTERNANCE LABORER LABORATORY Creatinine, 79 >20 mg/dL 03/08/2020 [facility] Urine, Random 1:45 PM TRESTLE MAINTERNANCE LABORER LABORATORY TP/Creat 0.09 0.00 - 03/08/2020 [facility] Ratio, Urine 0.20 1:45 PM TRESTLE MAINTERNANCE LABORER LABORATORY Random Specimen Anatomical Collection Method Collection Time Receive d Time (Source) Location / / Volume Laterality Urine Non-blood 03/08/2020 9:45 AM 9:45 Collection / TRESTLE MAINTERNANCE LABORER AM TRESTLE MAINTERNANCE LABORER Unknown Narrative [facility] - 03/08/2020 1:45 P M TRESTLE MAINTERNANCE LABORER Low urine creatinine values coupled with low urine protein values can artifactually increase the urine protein/creatinine re sults. Correlate results of ratio with creatinine results. Denisha Fenton Daphne NICK CNP LAB_1 Performing Organization Address City/State/ZIP Code Phon e Number [facility] [address] [place] [address] (ABNORMAL) Creatinine / GFR (03/08/2020 9:45 AM TRESTLE MAINTERNANCE LABORER) [facility] gist Method Time Signature Creatinine 0.50 (L) 0.55 - 03/08/2020 [facility] 1.02 mg/dL 12:56 PM TRESTLE MAINTERNANCE LABORER LABORATORY GFR, Estimated >60 >60 03/08/2020 [facility] mL/min/1.7 12:56 PM TRESTLE MAINTERNANCE LABORER LABORATORY 3m2 Specimen Anatomical Collection Method / Collection Time Recei andrade Time (Source) Location / Volume Laterality Blood Venipuncture / 03/08/2020 9:45 03/08/2020 9:45 Unknown AM TRESTLE MAINTERNANCE LABORER AM TRESTLE MAINTERNANCE LABORER Denisha Fenton Daphne NICK CNP LAB_1 Performing Organization Address City/State/ZIP Code Phon e Number [facility] [address] [place] [address] AST (03/08/2020 9:45 AM TRESTLE MAINTERNANCE LABORER) athologist Signature AST (SGOT) 10 10 - 40 U/L 03/08/2020 [facility] 12:56 PM TRESTLE MAINTERNANCE LABORER LABORATORY Specimen Anatomical Collection Method / Collection Time Recei andrade Time (Source) Location / Volume Laterality Blood Venipuncture / 03/08/2020 9:45 03/08/2020 9:45 Unknown AM TRESTLE MAINTERNANCE LABORER AM TRESTLE MAINTERNANCE LABORER Denisha Fenton [place] MITZI NICK LAB_1 Performing Organization Address City/[facility]/ZIP Code Phon e Number [facility] [address] [place] [address] ALT (SGPT) (03/08/2020 9:45 AM TRESTLE MAINTERNANCE LABORER) P athologist Signature ALT (SGPT) <10 0 - 55 U/L 03/08/2020 [facility] 12:56 PM TRESTLE MAINTERNANCE LABORER LABORATORY Specimen Anatomical Collection Method / Collection Time Recei andrade Time (Source) Location / Volume Laterality Blood Venipuncture / 03/08/2020 9:45 03/08/2020 9:45 Unknown AM TRESTLE MAINTERNANCE LABORER AM TRESTLE MAINTERNANCE LABORER Denisha Fenton Daphne NICK CNP LAB_1 Performing Organization Address [facility]/ZIP Code Phon e Number [facility] [address] [place] [address] Drugs of Abuse Screen, Urine, w/ conf (03/08/2020 9:45 AM TRESTLE MAINTERNANCE LABORER) Patholo gist Method Time Signature Amphetamines Not Not 03/08/2020 [facility] Screen Detected Detected 1:23 PM TRESTLE MAINTERNANCE LABORER LABORATORY Barbiturates Not Not 03/08/2020 [facility] Screen Detected Detected 1:23 PM TRESTLE MAINTERNANCE LABORER LABORATORY Benzodiazepines Not Not 03/08/2020 [facility] Screen Detected Detected 1:23 PM TRESTLE MAINTERNANCE LABORER LABORATORY Buprenorphine Not Not 03/08/2020 [facility] Screen Detected Detected 1:23 PM TRESTLE MAINTERNANCE LABORER LABORATORY Cocaine Metabolite Not Not 03/08/2020 [facility] Screen Detected Detected 1:23 PM TRESTLE MAINTERNANCE LABORER LABORATORY Methadone Screen Not Not 03/08/2020 [facility] Detected Detected 1:23 PM TRESTLE MAINTERNANCE LABORER LABORATORY Opiates Screen Not Not 03/08/2020 [facility] Detected Detected 1:23 PM TRESTLE MAINTERNANCE LABORER LABORATORY Oxycodone Screen Not Not 03/08/2020 [facility] Detected Detected 1:23 PM TRESTLE MAINTERNANCE LABORER LABORATORY Phencyclidine Not Not 03/08/2020 [facility] (PCP) Screen Detected Detected 1:23 PM TRESTLE MAINTERNANCE LABORER LABORATORY THC (Marijuana) Not Not 03/08/2020 [facility] Metab Screen Detected Detected 1:23 PM TRESTLE MAINTERNANCE LABORER LABORATORY Creatinine, Urine, 79 >20 mg/dL 03/08/2020 [facility] Random 1:23 PM TRESTLE MAINTERNANCE LABORER LABORATORY Specimen Anatomical Collection Method Collection Time Receive d Time (Source) Location / / Volume Laterality Urine Non-blood 03/08/2020 9:45 AM 9:45 Collection / TRESTLE MAINTERNANCE LABORER AM TRESTLE MAINTERNANCE LABORER Unknown Narrative [facility] - 03/08/2020 1:23 P M TRESTLE MAINTERNANCE LABORER The absence of expected drug(s) and/or d [...] Serna APRN, CNP LAB_1 Performing Organization Address City/[facility]/ZIP Code Phon e Number [place] [place] [id number] [place] [address] (ABNORMAL) Urine Culture (03/08/2020 9:45 AM TRESTLE MAINTERNANCE LABORER) [facility] Method Time Signature Urine Culture Growth (A) 03/09/2020 [facility] 4:14 PM [facility] Urine Culture >100,000 CFU/mL 03/09/2020 [facility] Multiple 4:14 PM [facility] Bacterial Morphotypes Specimen Anatomical Collection Method Collection Time Receive d Time (Source) Location / / Volume Laterality Urine URINE SPECIMEN Non-blood 03/08/2020 9:45 AM 021 9:45 COLLECTION, CLEAN Collection / TRESTLE MAINTERNANCE LABORER AM TRESTLE MAINTERNANCE LABORER CATCH / Unknown Unknown Denisha Serna APRN, CNP LAB_1 Performing Organization Address City/[facility]/ZIP Code Phon e Number [address] [address] Urinalysis Routine(Micro If Pos) (03/08/2020 9:45 AM TRESTLE MAINTERNANCE LABORER) [facility] Method Time Signature Urine Color Straw Straw-Yellow 03/08/2020 [facility] 11:32 AM LABORATORY TRESTLE MAINTERNANCE LABORER Urine Clarity Clear Clear 03/08/2020 [facility] 11:32 AM LABORATORY TRESTLE MAINTERNANCE LABORER Specific 1.025 1.005 - 03/08/2020 [facility] [place], 1.030 11:32 AM LABORATORY Urine TRESTLE MAINTERNANCE LABORER PH Urine 7.0 5.0 - 8.0 03/08/2020 [facility] 11:32 AM LABORATORY TRESTLE MAINTERNANCE LABORER Protein, Negative Neg/Trace 03/08/2020 [facility] Urine Qual 11:32 AM LABORATORY (mg/dL) TRESTLE MAINTERNANCE LABORER Glucose Urine Negative Negative 03/08/2020 [facility] Qual (mg/dL) 11:32 AM LABORATORY TRESTLE MAINTERNANCE LABORER Ketones, Negative Negative 03/08/2020 [facility] Urine (mg/dL) 11:32 AM LABORATORY TRESTLE MAINTERNANCE LABORER Urobilinogen, 0.2 <2.0 03/08/2020 [facility] Urine (EU/dL) 11:32 AM LABORATORY TRESTLE MAINTERNANCE LABORER Bilirubin Negative Negative 03/08/2020 [facility] Urine 11:32 AM LABORATORY TRESTLE MAINTERNANCE LABORER Blood, Urine Negative Neg/Trace 03/08/2020 [facility] 11:32 AM LABORATORY TRESTLE MAINTERNANCE LABORER Nitrite Urine Negative Negative 03/08/2020 [facility] 11:32 AM LABORATORY TRESTLE MAINTERNANCE LABORER Leukocyte Negative Negative 03/08/2020 [facility] Est. 11:32 AM LABORATORY TRESTLE MAINTERNANCE LABORER Urine Source Clean Catch 03/08/2020 [facility] 11:32 AM LABORATORY TRESTLE MAINTERNANCE LABORER Specimen Anatomical Collection Method Collection Time Receive d Time (Source) Location / / Volume Laterality Urine URINE SPECIMEN Non-blood 03/08/2020 9:45 AM 021 9:45 COLLECTION, CLEAN Collection / TRESTLE MAINTERNANCE LABORER AM TRESTLE MAINTERNANCE LABORER CATCH / Unknown Unknown Denisha Serna APRN, CNP LAB_1 Performing Organization Address City/[facility]/ZIP Code Phon e Number [facility] [address] [place] [address] Rubella Immune Status, IgG (03/08/2020 9:45 AM TRESTLE MAINTERNANCE LABORER) P athologist Signature Rubella Units 12.50 03/08/2020 [facility] 1:36 PM TRESTLE MAINTERNANCE LABORER LABORATORY Comment: The magnitude of the measured r esult, above the cutoff, is not indicative of the amount of antibody present. Rubella Intepretation Immune Immune 03/08/2020 1:3 6 PM TRESTLE MAINTERNANCE LABORER [facility] Specimen Anatomical Collection Method / Collection Time Recei andrade Time (Source) Location / Volume Laterality Blood Venipuncture / 03/08/2020 9:45 03/08/2020 9:45 Unknown AM TRESTLE MAINTERNANCE LABORER AM TRESTLE MAINTERNANCE LABORER Denisha Serna APRN, CNP LAB_1 Performing Organization Address City/State/ZIP Code Phon e Number [facility] [address] [place] [address] Treponema Screen (03/08/2020 9:45 AM TRESTLE MAINTERNANCE LABORER) [facility] Time Signature Treponema Screen 0.039 {s_co_ratio 03/08/2020 [facility] Result } 1:29 PM TRESTLE MAINTERNANCE LABORER LABORATORY Treponema Screen Non Non 03/08/2020 [facility] Interpretation Reactive Reactive 1:29 PM TRESTLE MAINTERNANCE LABORER LABORATORY Specimen Anatomical Collection Method / Collection Time Recei andrade Time (Source) Location / Volume Laterality Blood Venipuncture / 03/08/2020 9:45 03/08/2020 9:45 Unknown AM TRESTLE MAINTERNANCE LABORER AM TRESTLE MAINTERNANCE LABORER Denisha Serna APRN, CNP LAB_1 Performing Organization Address [facility] e Number [facility] [address] [place] [address] HIV 1/2 Ag/Ab 4th Generation (03/08/2020 9:45 AM TRESTLE MAINTERNANCE LABORER) [facility] HIV 1/2 Negative Negative 03/08/2020 [facility] Antigen/Antib (Non (Non 1:15 PM TRESTLE MAINTERNANCE LABORER LABORATORY shellie (4th Reactive) Reactive) generation) Comment: HIV-1 p24 Antigen and HIV-1/HIV -2 Antibody not detected Specimen Anatomical Collection Method / Collection Time Recei andrade Time (Source) Location / Volume Laterality Blood Venipuncture / 03/08/2020 9:45 03/08/2020 9:45 Unknown AM TRESTLE MAINTERNANCE LABORER AM TRESTLE MAINTERNANCE LABORER Denisha Serna APRN, CNP LAB_1 Performing Organization Address [facility] e Number [facility] [address] [place] [address] HEP B SURFACE ANTIGEN, NO REFLEX (03/08/2020 9:45 AM TRESTLE MAINTERNANCE LABORER) [facility] Signature Hepatitis B Negative Negative 03/08/2020 [facility] Surface (Non (Non 1:15 PM TRESTLE MAINTERNANCE LABORER LABORATORY Antigen Reactive) Reactive) Specimen Anatomical Collection Method / Collection Time Recei andrade Time (Source) Location / Volume Laterality Blood Venipuncture / 03/08/2020 9:45 03/08/2020 9:45 Unknown AM TRESTLE MAINTERNANCE LABORER AM TRESTLE MAINTERNANCE LABORER Denisha Serna APRN, CNP LAB_1 Performing Organization Address [facility] Phon e Number [facility] [address] [place] [address] Antibody Screen (03/08/2020 9:45 AM TRESTLE MAINTERNANCE LABORER) [facility] Method Time Signature Antibody Screen Negative 03/08/2020 [facility] Interpretation 1:33 PM TRESTLE MAINTERNANCE LABORER BLOOD BANK Specimen Anatomical Collection Method / Collection Time Recei andrade Time (Source) Location / Volume Laterality Blood Venipuncture / 03/08/2020 9:45 03/08/2020 9:45 Unknown AM TRESTLE MAINTERNANCE LABORER AM TRESTLE MAINTERNANCE LABORER Denisha Fenton Daphne NICK CNP LAB_1 Performing Organization Address [facility] Phon e Number [facility] [address] [place] [address] Blood Group & RH (Blood Type) (03/08/2020 9:45 AM TRESTLE MAINTERNANCE LABORER) athologist Signature ABO A 03/08/2020 [facility] 1:15 PM TRESTLE MAINTERNANCE LABORER BLOOD BANK RH Positive 03/08/2020 [facility] 1:15 PM TRESTLE MAINTERNANCE LABORER BLOOD BANK Specimen Anatomical Collection Method / Collection Time Recei andrade Time (Source) Location / Volume Laterality Blood Venipuncture / 03/08/2020 9:45 03/08/2020 9:45 Unknown AM TRESTLE MAINTERNANCE LABORER AM TRESTLE MAINTERNANCE LABORER Denisha Fenton Daphne NICK CNP LAB_1 Performing Organization Address [facility] Phon e Number [facility] [address] [place] [address] (ABNORMAL) HGB A1C (03/08/2020 9:45 AM TRESTLE MAINTERNANCE LABORER) [facility] Method Time Signature Hemoglobin A1C 6.9 (H) <=5.6 % 03/08/2020 [facility] 1:36 PM TRESTLE MAINTERNANCE LABORER CENTRAL LAB Specimen Anatomical Collection Method / Collection Time Recei andrade Time (Source) Location / Volume Laterality Blood Venipuncture / 03/08/2020 9:45 03/08/2020 9:45 Unknown AM TRESTLE MAINTERNANCE LABORER AM TRESTLE MAINTERNANCE LABORER Narrative [facility] - 03/08/2020 1:36 PM TRESTLE MAINTERNANCE LABORER For patients not previously diagnosed with diabetes: 5.7-6.4%: Increased risk for diabetes 6.5% and greater: Diagnostic for diabete s For patients diagnosed with diabetes: <8.0%: Goal of therapy for ages 18-75 Clinicians may recommend a higher or low er goal for specific individuals. Denisha Serna APRN, CNP LAB_1 Performing Organization Address City/State/ZIP Code Phon e Number [facility] CENTRAL LAB [address] [address] documented in this encounter Visit Diagnoses Diagnosis Supervision of other high risk , antepartum - Primary Pre-existing type 1 diabetes mellitus du ring in second trimester History of pulmonary embolism Personal history of pulmonary embolism Maternal thyroid dysfunction, antepartum (HRC) Thyroid dysfunction, antepartum Hypothyroidism, unspecified type (HRC) Constipation, unspecified constipation t ype Genital herpes simplex, unspecified site (HRC) Attention deficit hyperactivity disorder (ADHD), unspecified ADHD type (HRC) Screening for diabetes mellitus Encounter for blood typing screening for isoimmunization Screening for blood disease Screening for unspecified disorder of bl ood and blood-forming organs Screening examination for venereal disea se Screening examination for rubella Encounter for drug screening Encounter for immunization Need for other specified prophylactic va ccination against single bacterial disease documented in this encounter Care Teams Elementary Ell Teacher Relationship Specialty Start Date End Date Palmira Lim MD PCP - General 05/08/06 [address] [address] documented as of this encounter
--- OUTSIDE RECORDS SUMMARY | 2021-12-08 10:27 | XMS_ITS | Encounter Summary ---
:2000 Author Organization [facility] Address [address] [place] [address] Care Team Providers Name Role Phone Palmira Lim MD Primary Care Provider Encounter Details Date Type Department Care Team Description 03/06/2020 Lab Visit [facility] Type 1 di abetes mellitus without complication (HRC); [facility] Supervision of high risk pre gnancy in first trimester; [address] [place] [address] for screening of mother [address] [place] [address] Social History Tobacco Use [...] as of this encounter Progress Notes Twila Fontana, [facility] - 03/06/2020 3:30 PM CST Normal Maternal Screen results sent to patient via easyfolio mail since [employer] is inactive. MER MACHINE documented in this encounter Plan of Treatment Not on filedocumented as of this encounter Procedures Procedure Name Priority Date/Time Associated Diagnosis Comme nts MATERNAL Routine 03/06/2020 3:33 PM Supervision of high Results for this SCREEN STEMMER MACHINE risk in procedure are in first trimester the results Encounter for section. screening of mother TSH, SENSITIVE Routine 03/06/2020 3:33 PM Type 1 diabetes Resu lts for this (WITH REFLEX) STEMMER MACHINE mellitus without procedure are in complication (HRC) the resul ts section. HGB A1C Routine 03/06/2020 3:33 PM Type 1 diabetes Result s for this STEMMER MACHINE mellitus without procedure a re in complication (HRC) the resul ts section. documented in this encounter Results Maternal Screen (03/06/2020 3:33 PM STEMMER MACHINE) [facility] Method Time Signature Maternal See Scanned 03/10/2020 [facility] Screen Report 1:41 PM STEMMER MACHINE Specimen Anatomical Collection Method / Collection Time Recei andrade Time (Source) Location / Volume Laterality Blood Venipuncture / 03/06/2020 3:33 03/06/2020 3:33 Unknown PM STEMMER MACHINE PM STEMMER MACHINE Narrative This result has an attachment that is no t available. Kamila Delgadillo MD LAB_1 Performing Organization Address City/State/ZIP Code Phon e Number [facility] [address] [place], [place] [phone] (ABNORMAL) Hemoglobin A1C Glycosylated (03/06/2020 3:33 PM STEMMER MACHINE) [employer] gist Method Time Signature Hemoglobin A1C 6.9 (H) <=5.6 % 03/07/2020 [facility] 8:13 AM STEMMER MACHINE CENTRAL LAB Specimen Anatomical Collection Method / Collection Time Recei andrade Time (Source) Location / Volume Laterality Blood Venipuncture / 03/06/2020 3:33 03/06/2020 3:33 Unknown PM STEMMER MACHINE PM STEMMER MACHINE Narrative [facility] - 03/07/2020 8:13 AM STEMMER MACHINE For patients not previously diagnosed with diabetes: 5.7-6.4%: Increased risk for diabetes 6.5% and greater: Diagnostic for diabete s For patients diagnosed with diabetes: <8.0%: Goal of therapy for ages 18-75 Clinicians may recommend a higher or low er goal for specific individuals. Sonja Beltran APRN, CNP LAB_1 Performing Organization Address City/[facility]/ZIP Code Phon e Number [facility] [address] [address] TSH with Free T4 (if TSH Abnormal) (03/06/2020 3:33 PM STEMMER MACHINE) P athologist Signature TSH, Reflex 3.21 0.30 - 4.50 03/06/2020 [facility] uIU/mL 7:25 PM STEMMER MACHINE LABORATORY Specimen Anatomical Collection Method / Collection Time Recei andrade Time (Source) Location / Volume Laterality Blood Venipuncture / 03/06/2020 3:33 03/06/2020 3:33 Unknown PM STEMMER MACHINE PM STEMMER MACHINE Narrative [facility] - 03/06/2020 7:25 P M STEMMER MACHINE Lab will automatically reflex to Free T4 when TSH results are <0.30 uIU/mL or >4.50 mIU/mL. Sonja Beltran APRN, CNP LAB_1 Performing Organization Address City/[facility]/ZIP Code Phon e Number [facility] [address] [place] [address] documented in this encounter Visit Diagnoses Diagnosis Type 1 diabetes mellitus without complic ation (HRC) Type I (juvenile type) diabetes mellitus without mention of complication, not stated as uncontrolled Supervision of high risk in rst trimester Unspecified high-risk Encounter for screening of mot her Unspecified screening documented in this encounter Care Teams Tile Sorter Relationship Specialty Start Date End Date Palmira Lim MD PCP - General 05/08/[address] [place], [place] [address] documented as of this encounter
--- OUTSIDE RECORDS SUMMARY | 2021-12-08 10:27 | XMS_ITS | Encounter Summary ---
:2000 Author Organization [facility] Address [address] [place] [address] Care Team Providers Name Role Phone Palmira Lim MD Primary Care Provider Reason for Visit Reason Comments Prior Authorization For Medication Encounter Details Date Type Department Care Team Description 01/18/2020 Telephone [facility] [address] Sonja Beltran, Prior Authorization For Endocrinology MITZI NICK Medication [address] [place] [address] [place] [address] [facility] [place] [phone] (Wo rk) Social History Tobacco Use Types [...] documented as of this encounter Nursing Notes Sonja Beltran, MANAGER VALUATION, WEALTH MANAGEMENT MANAGER - 01/24/2020 2:03 PM CST Thanks. Tiffany Caballero RN - 01/24/2020 1:08 PM CST Called pt; explained to her about insurance denial and that we would be giving her samples. Pt understands and will come get samples. Sonja: Gave her 4 of the Tresiba U200 pens. Please sign for samples. Sonja Purcell APRN, CNP - 01/24/2020 12:02 PM CST Please call pt and ask her to come pick some up in clinic. Explain that her insurance will not let her continue with coverage for that. Right now using 32 units/day. About 1000 units/month. Perhaps 4 of the u200 pens? Or a mix to try toget her to about 3 mo worth? Thanks. Tiffany Caballero RN - 01/24/2020 11:07 AM CST Yes we have both Tresiba 100 and 200 available in clinic. Jin Mccullough - 01/24/2020 10:23 AM CST Images from the original note were not included. Received letter from [employer], Appeal denied for Tresiba: Please advise. Jin Mccullough - 01/23/2020 3:13 PM CST Appeals letter faxed to [phone] Aleida Tucker RN - 01/20/2020 1:26 PM CST DA: Please see message below from Sonja. Can we ran the PA again? Appeal? 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 Switching to levemir which has a shorter duration of action than Tresiba would be dangerous to the fetus at this time. ASSESSMENT Aleida Pace RN - 01/20/2020 9:06 AM CST Do you want to send Levemir? ASSESSMENT Jin Brown - 01/20/2020 8:34 AM CST Images from the original note were not included. PA denied for Tresiba. Approval requires documentation of inadequate response to a preferred insulins: Lantus and Levemir. Patient's chart does not indicate trial/failure of Levemir. Please advise. ASSESSMENT Jin Brown - 01/19/2020 1:46 PM CST PA submitted via covermymeds ASSESSMENT Nadira Ford RN - 01/18/2020 3:12 PM CST Pt [place]: Payor: [id number] FRANKIE Benefit plan: [id number][facility] Nadira Mujica RN - 01/18/2020 3:11 PM CST ----- Message from Jin Brown sent at 01/16/2020 11:05 AM RN ASSESSMENT ----- Regarding: FW: Rx Prior Auth Response [facility] does not find active coverage for this patient. Please contact the patient for updatedcoverage ----- Message ----- From: Interface, In Pharmacy Epa Sent: 01/16/2020 10:59 AM RN ASSESSMENT To: Linus Shannon Da Subject: Rx Prior Auth Response Electronic Prior Authorization message received. ASSESSMENT documented in this encounter Plan of Treatment Not on filedocumented as of this encounter Visit Diagnoses Not on filedocumented in this encounter Care Teams General Sales Manager Relationship Specialty Start Date End Date Palmira Lim MD PCP - General 05/08/[address] [place] [id number] documented as of this encounter
--- OUTSIDE RECORDS SUMMARY | 2021-12-08 10:27 | XMS_ITS | Encounter Summary ---
:1999 Author Organization [employer] Address [address] [place] [address] Care Team Providers Name Role Phone Palmira Lim MD Primary Care Provider Reason for Visit Reason Comments Diabetes Encounter Details Date Type Department Care Team Description 01/13/2020 Telemedicine [place] Sonja Beltran, Type 1 diabe yosi Endocrinology NECKTIE CENTRALIZING MACHINE OPERATOR, SET DECORATOR mellitus without [address] [facility] complication (HRC) [place] [address] Blvd (Primary Dx) [phone] [place] [address] Social History Tobacco Use [...] documented as of this encounter Progress Notes Luis Fernando Sher, RN - 01/13/2020 3:30 PM CST Renewed medication per medication refill protocol. Requested Prescriptions Signed Prescriptions Disp Refills ??? insulin lispro, human, (HUMALOG) 100 UNIT/ML injection pen 30 mL 2 Sig: Inject subcutaneously three times daily before meals. 1U for every 40 over 140 on sliding scale 1 U for every 6g carbs ??? Insulin Degludec (TRESIBA) 100 UNIT/ML SOLN 15 mL 3 Si units daily ??? insulin pen needle 31G X 5 MM 500 Each 2 Sig: Inject 1 Each subcutaneously five times a day. IVER/LABORER Izzy Workman LPN - 01/13/2020 3:30 PM CST LVM re:chart prep. 01/11 at 9:13am. IVER/LABORER Nadira Ford RN - 01/13/2020 3:30 PM CST Pre-Visit Planning for Phone/Video Visit: Diabetes Pre-visit planning completed. Reviewed the following: - Medications (pended refills) - Pharmacy - Allergies - Last foot & eye exam - Tobacco/alcohol use Current Diabetes Medications Tresiba: 32 units NovoloU for every 40 over 140 on sliding scale 1 U for every 6g carbs TDD 30-40 units ?? Reported Glucose Results: 01/02: 413am: 350 1251pm: 232 308pm: 208 01/03: 228pm: 379 623pm: 294 910pm: 151 1003pm: 151 01/04: 240am: 107 146pm: 242 441pm: 134 750pm: 101 01/05: 1201am: 262 1050am: 175 352pm: 151 608pm: 107 1102pm: 260 01/06: 931pm: 195 01/07: 240am: 271 130pm: 184 551pm: 213 01/08: 133am: 178 736am: 247 135pm: 130 742pm: 310 01/09: 935pm: 108 01/10: 225am: 314 1215pm: 134 621pm: 337 803pm: 214 941pm: 130 01/11: 1220am: 143 121am: 117 222am: 101 915am: 83 506pm: 239 718pm: 148 840pm: 111 1141pm: 90 01/12: 141am: 96 Patient Concerns: IVER/LABORER Sonja Beltran APRN, SET DECORATOR - 01/13/2020 3:30 PM CST ATTEMPTED VIDEO CALL. No answer at 302 pm. January 13, 2020 Chief Complaint: Nabila Serna a 19 y.o. female is contacted for follow up of Type 1 diabetes. Last saw Pita Salinas 09/2018/ Dr. Maldonado a year ago, I met her by phone . Today's office visit is by video.Total phone time: 29 min History of Present Illness: Subjective: Diagnosed with diabetes: 2016 Complications:No known chronic microvascular complications of diabetes. Made appt for today as she just found out she is . LMP 11/27/2019. Pt was 4 days late and sodid home test. Took 01/01 and 01/02. Both positive. Pt is using MDI. Pt applied for and now has MA. Used to use a Dexcom, but lost it when she lost insurance. Pt states she switched how she cares for herself now that she found out she is . In the last48 hrs she has been looking food up and taking insulin carefully before meals and snacks. Other health issues: ADD. Subclinical hypothyroidism history. Patient has not been on any levothyroxine lately. Indicates ???I do not know what is wrong with my thyroid?? . Last eye exam: Over a year ago Foot exam: 06/[address] Martin, normal exam. Social history: Tobacco: reports that she has been smoking cigarettes. She has a 0.25 pack-year smoking history. She has never used smokeless tobacco. 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 Has not had a regular sleep scheduleso insulin and food are irregular as well. Tends to eat at 10 pm or [place] and then again at about 2-3 am. Sleeps from 7 or 8 am to 1-3 pm. Has another meal between 3-5 pm most days. Current Diabetes Treatment Regimen: Tresiba 32 units each night. HL is now more consistently 1/6 grams plus 1/40 over 140 Has been using [employer] to look up foods and count carbs more in the last week. Full med list reviewed in Epic. No other meds. Objective: Female patient, appears somewhat sleepy by video.. ALert and oriented, smiling. Glucose Monitoring: Home glucose monitoring: Denies any hypoglycemia but felt low with 83 yesterday. Ate 10 sour patch kids (3 carb choices) and then was elevated. Pt has had excellent levels in last 2 days with more frequent testing. : 413am: 350 1251pm: 232 308pm: 208 01/03: 228pm: 379 623pm: 294 910pm: 151 1003pm: 151 01/04: 240am: 107 146pm: 242 441pm: 134 750pm: 101 01/05: 1201am: 262 1050am: 175 352pm: 151 608pm: 107 1102pm: 260 01/06: 931pm: 195 01/07: 240am: 271 130pm: 184 551pm: 213 01/08: 133am: 178 736am: 247 135pm: 130 742pm: 310 01/09: 935pm: 108 01/10: 225am: 314 1215pm: 134 621pm: 337 803pm: 214 941pm: 130 01/11: 1220am: 143 121am: 117 222am: 101 915am: 83 506pm: 239 718pm: 148 840pm: 111 1141pm: 90 01/12: 141am: 96 Last A1c: Lab Results Component Value Date HGB A1C 9.5 (H) 05/20/2018 Hemoglobin A1C, POC 9.4 (A) 10/20/2018 Last LDL: Lab Results Component Value Date Cholesterol 163 05/20/2018 Cholesterol/HDL Ratio Screen 3.9 05/20/2018 HDL Cholesterol 42 05/20/2018 Triglycerides 75 05/20/2018 LDL Calculated 106 05/20/2018 Microalbumin: Lab Results Component Value Date Microalbumin Urine <10.0 05/20/2018 Assessment: Nabila is a 19 y.o. female who was contacted today for Type 1 diabetes mellitus with following diagnoses: Diagnoses and Orders Placed: 1. Type 1 diabetes mellitus without complication (HRC) Plan: 1. NO change in dosing today. Check BG, count carbs, dose and then eat everytime. 2. Discussed need for tight BG control in and risk of uncontrolled levels. Goals 65-95 fasting. Under 140 at 1 hour post meal, under 120 at 2 hours post meal. 2. A1c, urine microalbumin, creatinine, TSH cascade with labs next Thursday at OBGYN clinic. 3. Follow-up in 1 week and then every 2 weeks through the . Myself and Dr. Jossy Block I add. Mariaa benefit from [employer] Education, but she does seem to be able to count carbs quite easily. 4. Prescription written for Dexcom. Medically necessary in light of her need for more data as she works to control her diabetes in . IVER/LABORER documented in this encounter Plan of Treatment Not on filedocumented as of this encounter Results Microalbumin Urine Random (01/17/2020 2:21 PM RECEIVER/LABORER) athologist Signature Albumin, 3.4 mg/L 01/17/2020 [place] Urine, Random 3:28 PM RECEIVER/LABORER LABORATORY Creatinine, 52 >20 mg/dL 01/17/2020 [place] Urine, Random 3:28 PM RECEIVER/LABORER LABORATORY Albumin/Creati 7 <30 mg/g 01/17/2020 [place] nine Ratio, 3:28 PM RECEIVER/LABORER LABORATORY Urine, Random Specimen Anatomical Collection Method Collection Time Receive d Time (Source) Location / / Volume Laterality Urine Non-blood 01/17/2020 2:21 PM 0 2:21 Collection / RECEIVER/LABORER PM RECEIVER/LABORER Unknown Sonja Beltran APRN, SET DECORATOR LAB_1 Performing Organization Address City/State/ZIP Code Phon e Number [facility] [address] [place] [address] (ABNORMAL) TSH with Free T4 (if TSH Abnormal) (01/17/2020 12:44 PM RECEIVER/LABORER) athologist Signature TSH, Reflex 9.11 (H) 0.30 - 01/17/2020 [place] 4.50 4:20 PM RECEIVER/LABORER LABORATORY uIU/mL Specimen Anatomical Collection Method / Collection Time Recei andrade Time (Source) Location / Volume Laterality Blood Venipuncture / 01/17/2020 12:44 0 Unknown PM RECEIVER/LABORER 12:44 PM RECEIVER/LABORER [facility] - 01/17/2020 4:20 P M RECEIVER/LABORER Lab will automatically reflex to Free T4 when TSH results are <0.30 uIU/mL or >4.50 mIU/mL. Sonja Beltran APRN, CNP LAB_1 Performing Organization Address [facility] e Number [facility] [address] [place] [address] (ABNORMAL) Hemoglobin A1C Glycosylated (01/17/2020 12:44 PM RECEIVER/LABORER) [facility] Method Time Signature Hemoglobin A1C 11.2 (H) <=5.6 % 01/17/2020 [facility] 9:53 PM RECEIVER/LABORER [facility] Specimen Anatomical Collection Method / Collection Time Recei andrade Time (Source) Location / Volume Laterality Blood Venipuncture / 01/17/2020 12:44 0 Unknown PM RECEIVER/LABORER 12:44 PM RECEIVER/LABORER [facility] - 01/17/2020 9:53 PM RECEIVER/LABORER For patients not previously diagnosed with diabetes: 5.7-6.4%: Increased risk for diabetes 6.5% and greater: Diagnostic for diabete s For patients diagnosed with diabetes: <8.0%: Goal of therapy for ages 18-75 Clinicians may recommend a higher or low er goal for specific individuals. Sonja Beltran APRN, CNP LAB_1 Performing Organization Address [facility] e Number [facility] [address] [address] (ABNORMAL) Creatinine (01/17/2020 12:44 PM RECEIVER/LABORER) [facility] Method Time Signature Creatinine 0.50 (L) 0.55 - 01/17/2020 [place] 1.02 mg/dL 3:19 PM RECEIVER/LABORER LABORATORY GFR, Estimated >60 >60 01/17/2020 [place] mL/min/1.7 3:19 PM RECEIVER/LABORER LABORATORY 3m2 Specimen Anatomical Collection Method / Collection Time Recei andrade Time (Source) Location / Volume Laterality Blood Venipuncture / 01/17/2020 12:44 0 Unknown PM RECEIVER/LABORER 12:44 PM RECEIVER/LABORER Sonja Beltran APRN, MITZI LAB_1 Performing Organization Address City/State/ZIP Code Phon e Number [facility] [address] [place] [address] documented in this encounter Visit Diagnoses Diagnosis Type 1 diabetes mellitus without complic ation (HRC) - Primary Type I (juvenile type) diabetes mellitus without mention of complication, not stated as uncontrolled documented in this encounter Care Teams Flash Ranging Crewmember Relationship Specialty Start Date End Date Palmira Lim MD PCP - General 05/08/[address] [place], [place] [address] documented as of this encounter
--- OUTSIDE RECORDS SUMMARY | 2021-12-08 10:27 | XMS_ITS | Encounter Summary ---
:1999 Author Organization [email or web address] Address [address] [place] [address] Care Team Providers Name Role Phone Palmira Lim MD Primary Care Provider Reason for Visit Reason Comments RESULTS, TEST Encounter Details Date Type Department Care Team Description 01/17/2020 Telephone [facility] Jordan, RESULTS, TEST Services-DIVISION SERGEANT [id number] [place] [address], [address] [place] [address] [address] [place] [address] [place] [address] (Wo rk) Social History Tobacco Use [...] encounter Nursing Notes Tiffany Meyer LPN - 01/17/2020 10:24 AM CST Spoke to pt. Informed pt to get labs done before appt. Pts stated she has lab appt at 2pm. Asked pt is she could come earlier. Pt replied, no. Explained to pt, getting labs drawn earlier will be helpful for MD and appt. LITIES MAINTENANCE WORKER Tiffany Meyer LPN - 01/17/2020 10:18 AM CST ----- Message from Nabila Stokes MD sent at 01/17/2020 9:03 AM FACILITIES MAINTENANCE WORKER ----- Can we please have the patient try and get a HCG level completed today before her appointment with me at 4:00? The order is in! Please and thank you! LITIES MAINTENANCE WORKER documented in this encounter Plan of Treatment Not on filedocumented as of this encounter Visit Diagnoses Not on filedocumented in this encounter Care Teams Civil Structural Designer Relationship Specialty Start Date End Date Palmira Lim MD PCP - General 05/08/[address] [place] [address] documented as of this encounter
--- OUTSIDE RECORDS SUMMARY | 2021-12-08 10:27 | XMS_ITS | Encounter Summary ---
:1999 Author Organization [employer] Address [address] [place] [address] Care Team Providers Name Role Phone Palmira Lim MD Primary Care Provider Reason for Visit Reason Comments Medication Request Encounter Details Date Type Department Care Team Description 01/11/2020 Nurse Triage Careline Unassigned, Medication Request [address] [place], [place] [address] [place] [address] [place] [address] Social History Tobacco Use Types Packs/Day Years [...] documented as of this encounter Nursing Notes Rosario Yan RN - 01/11/2020 6:34 PM CST Verified patient identity: Yes Situation/Background (brief explanation of current symptoms/situation): Pt states pharmacy needs clarification on insulin Max dose Does the patient currently have any of these Covid symptoms? (Shortness of Breath/Difficulty of breathing, Sore Throat, Fever, Cough, New loss of smell or loss of taste) No Covid19 Symptoms - Other symptoms Reviewed with patient pertinent medical history(as it related to the call): Yes Reviewed with patient pertinent medications (as they relate to call): Yes Reviewed with patient pertinent allergies (as they relate to call): Yes If directing the patient to schedule an appointment or be seen in the appropriate urgent care: In the last 14 days have you had close contact with a person known to have COVID-19 or been instructed to self-isolate? Close contact is defined as being within 6 feet for more than 15 minutes to persons with confirmed COVID-19 during the infectious period. The infectious period for COVID-19 starts 48 hours before someone???s symptoms appear and lasts for 10 days after symptoms first appear. No Reason for Disposition ??? Pharmacy calling with prescription question and triager answers question Protocols used: MEDICATION QUESTION [id number]-[id number]-UV Phoned pharmacy which stated they had already spoken to environmental services coordinator provider and prescription was being filled. Pt notified The Careline is open 22/09. Call back with any questions or concerns. DAY BABYSITTER Ree Arvizu - 01/11/2020 6:31 PM CST Verified patient identity using three identifiers: Yes Caller's relationship to patient: Parent At which care system or clinic is the patient normally seen? Miladis Quevedo ([facility]) [facility] Medication Questions/New Med Request/ Side Effects What medication are you calling about (name and/or type)? Humalog What is your question/concern? Patient's prescription was sent over but pharmacy states they cant fill it because its missing the insulin per day Are you experiencing any symptoms? No Plan: Caller transferred directly to CareLine nurse. DAY BABYSITTER documented in this encounter Plan of Treatment Not on filedocumented as of this encounter Visit Diagnoses Not on filedocumented in this encounter Care Teams Associate Publisher Relationship Specialty Start Date End Date Palmira Lim MD PCP - General 05/08/06 [address], [place] [address] documented as of this encounter
--- OUTSIDE RECORDS SUMMARY | 2021-12-08 10:27 | XMS_ITS | Encounter Summary ---
:1999 Author Organization [employer] Address [address] [place] [address] Care Team Providers Name Role Phone Palmira Lim MD Primary Care Provider Reason for Visit Reason Onset Date Comments Refill 03/29/2019 insulin lispro, kathie n, (HUMALOG) 100 UNIT/ML injection pen Encounter Details Date Type Department Care Team Description 03/29/2019 Refill [facility] [address] Lilian Maldonado, Re fill (insulin lispro, Endocrinology MBBS human, (HUMALOG) 100 [address] [place] [address] [place] T/ML injection pen) [place] [id number] Social History Tobacco Use Types Packs/Day Years [...] documented as of this encounter Nursing Notes Luis Fernando Sher RN - 03/30/2019 8:31 AM CST Renewed medication per medication refill protocol. Requested Prescriptions Pending Prescriptions Disp Refills ??? insulin lispro, human, (HUMALOG) 100 UNIT/ML injection pen 30 mL 2 Sig: Inject subcutaneously three times daily before meals. 1U for every 40 over 140 on sliding scale 1 U for every 8g carbs UNTS RECEIVABLE CLERK Interface, Out Surescripts Prov Query - 03/29/2019 1:17 PM CST insulin lispro, human, (HUMALOG) 100 UNIT/ML injection pen Endocrinology: Diabetes - Insulins -> The requested strength (100 unit/ml solution pen-injector) has not been ordered recently. The patient is taking 100 unt/ml pen injector as of 05/20/2018. -> Rapid A1C is abnormal (9.4 % is greater than 8.0 %) -> Refill x 3 months (courtesy refill, overdue for a(n) Rapid A1C check) -> Calculate quantity and refills manually. They could not be estimated due to missing or unreadable information. Last qualifying visit: 10/20/2018 (in [facility]) Next scheduled visit: 04/27/2019 (in [facility]) Rapid A1C : 9.4 % on 10/20/2018 Powered by [employer], Reference: [id number], 03/29/2019 1:17:27 PM [place] FIERRO: KEVIN REVELES NURSING TEAM 1 ([id number]) UNTS RECEIVABLE CLERK Marquise Metcalf - 03/29/2019 1:16 PM CST Last appt: 11/17/18, Next: 04/27/19 UNTS RECEIVABLE CLERK documented in this encounter Plan of Treatment Not on filedocumented as of this encounter Visit Diagnoses Diagnosis Uncontrolled type I diabetes mellitus [facility] complication - Primary documented in this encounter Care Teams Breaker Up Machine Operator Relationship Specialty Start Date End Date Palmira Lim MD PCP - General 05/08/[address] [place] [address] documented as of this encounter
--- OUTSIDE RECORDS SUMMARY | 2021-12-08 10:27 | XMS_ITS | Encounter Summary ---
:1999 Author Organization [facility] Address [address] [place] [address] Care Team Providers Name Role Phone Palmira Lim MD Primary Care Provider Reason for Referral Procedure/Equipment (Routine) - Incomplete Specialty Diagnoses / Procedures Referred By Contact Refer red To Contact Diagnoses Missed menses Type 1 diabetes mellitus without complication (HRC) Nabila Stokes MD Procedures US OB <14 Weeks W EV Single US OB < 14 Weeks Single [address] [place] [address] Referral ID Status Reason Start Date Expiration Date Visits V isits Requested Authorized [id number] Incomplete 01/19/2020 04/19/2021 1 1 ENT SAFETY TECH Encounter Details Date Type Department Care Team Description 01/19/2020 Orders Only Nabila Roman Type 1 d iabetes mellitus without complication (HRC) (Primary Dx); Services-FUND RAISER MD Maricruz Missed menses [address] [facility], [address] [address] [place] [address] [phone] (Wo rk) Social History Tobacco Use Types [...] on filedocumented as of this encounter Results US OB <14 Weeks W EV Single (01/23/2020 1:15 PM PATIENT SAFETY TECH) Anatomical Region Laterality Modality Pelvis Ultrasound Specimen (Source) Anatomical Collection Method Collection Time Re ceived Time Location / / Volume Laterality 01/23/2020 12:27 PM PATIENT SAFETY TECH Impressions 01/23/2020 1:24 PM PATIENT SAFETY TECH COMPARISON: None TECHNIQUE: ??Transabdominal and transvag inal imaging was performed. ?? FINDINGS: Gestational sac: Unremarkable. Ragan-rump length measures 1.2 cm, corre sponding to 7w3d gestational age. ?? TATE 09/07/2020. ?? Embryonic/ cardiac activity is iden tified with heart rate 150 bpm. ?? Right Ovary: Measures 4.0 x 2.2 x 1.5 cm and appears unremarkable. Left Ovary: Measures 3.6 x 2.8 x 2.3 cm and contains a probable corpus luteum. No suspicious adnexal masses. Free Fluid: Yes, simple. GA by LMP:: ??08w1d GA by Prior US: ??n/a GA by today's US: ??7w3d TATE by today's US: 09/07/2020 IMPRESSION: Single living IUP, EGA 7 wee ks 3 days. Procedure Note Dwight Treviño MD - 01/23/2020Format ting of this note might be different from the original. IMPRESSION COMPARISON: None TECHNIQUE: Transabdominal and transvagin al imaging was performed. FINDINGS: Gestational sac: Unremarkable. Ragan-rump length measures 1.2 cm, corre sponding to 7w3d gestational age. TATE 09/07/2020. Embryonic/ cardiac activity is iden tified with heart rate 150 bpm. Right Ovary: Measures 4.0 x 2.2 x 1.5 cm and appears unremarkable. Left Ovary: Measures 3.6 x 2.8 x 2.3 cm and contains a probable corpus luteum. No suspicious adnexal masses. Free Fluid: Yes, simple. GA by LMP:: 08w1d GA by Prior US: n/a GA by today's US: 7w3d TATE by today's US: 09/07/2020 IMPRESSION: Single living IUP, EGA 7 wee ks 3 days. Nabila Stokes MD [facility] documented in this encounter Visit Diagnoses Diagnosis Type 1 diabetes mellitus without complic ation (HRC) - Primary Type I (juvenile type) diabetes mellitus without mention of complication, not stated as uncontrolled Missed menses Absence of menstruation Missed menses Absence of menstruation Type 1 diabetes mellitus without complic ation (HRC) Type I (juvenile type) diabetes mellitus without mention of complication, not stated as uncontrolled documented in this encounter Care Teams Emergency Veterinary Technician Relationship Specialty Start Date End Date Palmira Lim MD PCP - General 05/08/06 [address] [place], [place] [address] [address] documented as of this encounter
--- OUTSIDE RECORDS SUMMARY | 2021-12-08 10:27 | XMS_ITS | Encounter Summary ---
:2000 Author Organization [employer] Address [address] [place] [address] Care Team Providers Name Role Phone Palmira Lim MD Primary Care Provider Reason for Visit Procedure/Equipment (Routine) - Incomplete Specialty Diagnoses / Procedures Referred By Contact Refer red To Contact Diagnoses Type 1 diabetes mellitus without complication (HRC) Nabila Stokes MD Procedures MFM US NT, Early OB US [facility] OB Under 14 Wks [address] [address] [place] [address] Referral ID Status Reason Start Date Expiration Date Visits V isits Requested Authorized [id number] Incomplete 01/18/2020 04/18/2021 10 10 Encounter Details Date Type Department Care Team Description 03/06/2020 Ancillary [place] Maternal Nabila Stokes cy at early stage; Procedure Medicine MD Maricruz Type 1 diabetes mellitus without complic ation (HRC) [address] [address] [address] [address], [address] [address] [phone] Social History Tobacco Use Types Packs/Day Years [...] Name Priority Date/Time Associated Diagnosis Comme nts MFM US NT, EARLY OB Routine 03/06/2020 3:24 PM Type 1 diabetes Results for this US 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 documented in this encounter Results MFM US NT, Early OB US (03/06/2020 3:24 PM LATHING SUPERVISOR) Anatomical Region Laterality Modality Pelvis Ultrasound Study GA Study Date Study TATE Working TATE (Source) W eight (Method) 13w6d 03/06/2020 09/05/2020 09/07/2020 (Ultrasound) Result Name Value Comments GA by US Calc 97 days 97 Gest Sac CRL 7.89 cm 97 NT 1.9 mm FHR 145 bpm Specimen (Source) Anatomical Location Collection Method / Collectio n Time Received Time / Laterality Volume Impressions 03/06/2020 3:50 PM LATHING SUPERVISOR S 1) Intrauterine at 13 weeks 4 days 2) The nuchal translucency measurement i s within the normal range. 3) U/S agrees with ASSIGNED TATE 4) anatomy appeared normal for ges tational age. 5) No adnexal masses were identified RECOMMENDATIONS: -This patient was seen today for first t rimester screening for aneuploidy. ?? She will be informed of t est results when available - typically 7-10 days. -If this test is not the first step to s equential screening, the provider should be aware that this test does not screen for open neural tube defect (ONTD, spina bifida). ??All women should be offered maternal serum alpha fetoprotein (MS-AFP) screening at 15-18 weeks gestation. ?? -Level 2 US due to type 1 DM Narrative 03/06/2020 3:50 PM LATHING SUPERVISOR Patient Name: Nabila Serna ??Attending: Kamila Delgadillo MD Patient ??Processing Associate: Otilia Lewis RDRI , Age: 709/02/2000, 19 y.o. ??GA Prior t o Exam: 13w4d LMP: Patient's last menstrual period was 11/27/2019 (exact date). ??GA by Today's US: 13w6d Pregnancies: ??GA TATE: 13w4d Ultrasound Pre- BMI: ?TATE: 09/07/2020 Hx/Indications: Type 1 IDDM NT Screen Evaluation Gestation Type johnson Cardiac Activity present Motion normal Presentation transverse Amniotic Fluid normal Placenta Location fundal Placenta Appearance appears normal Placenta Cord Insertion normal ? First Trimester Gestational Sac normal Amnion seen Nuchal Translucency appears normal Intracranial Translucency appears normal ? Measurement Value Rank GA CRL 7.89 cm 69% 13w6d NT 1.9 mm ?? FHR 145 bpm ?? Head Cranium appears normal Midline Falx appears normal Choroid Plexus appears normal Face Orbits appears normal Lenses appears normal Profile appears normal Nasal Bone appears normal Heart Heart Rhythm regular Situs normal Cardiac Blackwell appears normal Abdomen Stomach appears normal Umbilical Cord Insertion appears normal Cord Vessels three Urinary Tract Bladder appears normal Extremities Right Upper Extremity appears normal Left Upper Extremity appears normal Right Lower Extremity appears normal Left Lower Extremity appears normal ? Maternal Evaluation Cervix Normal Uterus Normal Cervical Length ? Approach N/A Right Ovary Inadequately Vi sualized With Fundal Pressure (cm) N/A ?? Left Ov jean-paul Inadequately Visualized Funneling N/A Right Adnexa Normal Cul-de-sac No fluid seen Left Adnexa Nor mal Impression Nabila Stokes MD RAD LISA US documented in this encounter Visit Diagnoses Diagnosis at early stage Type 1 diabetes mellitus without complic ation (HRC) Type I (juvenile type) diabetes mellitus without mention of complication, not stated as uncontrolled documented in this encounter Care Teams Claim Representative Relationship Specialty Start Date End Date Palmira Lim MD PCP - General 05/08/[address] [place] [address] documented as of this encounter
--- OUTSIDE RECORDS SUMMARY | 2021-12-08 10:27 | XMS_ITS | Encounter Summary ---
:2000 Author Organization [employer] Address [address] [place] [address] Care Team Providers Name Role Phone Palmira Lim MD Primary Care Provider Reason for Visit Reason Comments RESULTS, TEST Encounter Details Date Type Department Care Team Description 01/19/2020 Telephone [facility] O'Nabila Jordan, RESULTS, TEST Services-EXCHANGE TELLER [address] [place] [address], [address] [place] [address] [facility] [address] [place] [address] [place] [address] (Wo rk) Social History Tobacco [...] documented as of this encounter Nursing Notes Sophie Barros LPN - 01/19/2020 12:57 PM CST Images from the original note were not included. Nabila Stokes MD P Teodora Banerjee ?? Please call the patient and let her know that [facility] desires a dating US with Radiology prior to her consultation, I have put this order and and she should have this completed as soon as able. Please and thank you! Spoke with Pt and provided appointment line to Radiology (ultrasound). Per [facility], Pt will schedule this dating US prior to MFM consult. [facility] has not reached Pt for scheduling; the dating US will be scheduled for the soonest available time. Order placed per Nabila Stokes MD. Pt agrees to plan. No questions. EATIONAL THERAPY AIDE documented in this encounter Plan of Treatment Not on filedocumented as of this encounter Visit Diagnoses Not on filedocumented in this encounter Care Teams Meter Tester Primary Relationship Specialty Start Date End Date Palmira Lim MD PCP - General 05/08/06 [address], [place] [address] documented as of this encounter
--- OUTSIDE RECORDS SUMMARY | 2021-12-08 10:27 | XMS_ITS | Encounter Summary ---
:2000 Author Organization [employer] Address [address] [place] [address] Care Team Providers Name Role Phone Palmira Lim MD Primary Care Provider Reason for Referral Consult/Transfer Care (Routine) - Closed Specialty Diagnoses / Procedures Referred By Contact Refer red To Contact Diagnoses Type 1 diabetes mellitus without complication (HRC) Pre-existing diabetes mellitus during in first trimester Sonja Beltran APRN, CNP [address] [place], [place] [address] Referral ID Status Reason Start Date Expiration Date Visits Requ ested Visits Authorized [id number] Closed 02/03/2020 05/04/2021 1 1 Scheduling Instructions Your provider has recommended an appoint ment with [facility]. You may call [phone] to schedule yo ur appointment. We suggest you call your health insurance company about your cove rage and benefits for this appointment. NT APPLICATION SUPPORT SPECIALIST Reason for Visit Reason Comments Diabetes Encounter Details Date Type Department Care Team Description 02/03/2020 Telemedicine [place] Sonja Beltran, Type 1 diabe yosi mellitus without complication (HRC) (Primary Dx); Endocrinology MITZI NICK Subclinical hypothyroidism; [address] [place] Pre-existing diabetes [facility] during in first [place] [address] [facility] [phone] [place] [address] Social History Tobacco Use Types Packs/Day Years [...] documented as of this encounter Progress Notes Izzy Workman LPN - 02/03/2020 3:30 PM CST Images from the original note were not included. Pre-Visit Planning for Phone/Video Visit: Diabetes Pre-visit planning completed. Reviewed the following: - Medications (pended refills):done - Pharmacy:updated - Allergies:updated - Last foot & eye exam:updated - Tobacco/alcohol use:former Current Diabetes Medications Insulin: Degludec U-200(Tresiba) 34 units daily. Aspart (Novolog) 1 unit per 6 grams of carb plus SS >140. Reported Glucose Results: NT APPLICATION SUPPORT SPECIALIST Sonja Beltran APRN, MATERIALS TECHNICIAN - 02/03/2020 3:30 PM CST Pt has not set up [place]. Used [employer] video. February 03, 2020 Chief Complaint: Nabila Serna a 19 y.o. female is contacted for follow up of Type 1 diabetes. Last saw Piat Salinas 09/2018/ Dr. Maldonado a year ago, I met her by phone . Last spoke with her 01/13/2020 right after she found out she was . Today's office visit is by video.Total time: 26 min History of Present Illness: Subjective: Diagnosed with diabetes: 2016 Complications:No known chronic microvascular complications of diabetes. A1c 01/17/2020 11.2%. She is unexpectedly . LMP 11/27/2019. Pt is using MDI. Pt applied for and now has MA. Back on Dexcom with . I suggested adding NPH before sleep at her last visit. She was told that the pharmacy that the NPH insulin was not covered. She did not start it. She did increase her Tresiba from 32-34 daily. Other health issues: ADD. Subclinical hypothyroidism history. TSH on 01/17/2020 was 9.11. FT4 0.6 Started Levothyroxine 125 mcg daily on 01/17/2020. Last eye exam: Over a year ago Foot exam: 06/[address] Martin, normal exam. Social history: Tobacco: reports that she has quit smoking. Her smoking use included cigarettes. She has a 0.25 pack-year smoking history. She has never used smokeless tobacco. 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 Has not had [...] meal plan. Current Diabetes Treatment Regimen: Tresiba 34 units each night at midnight. States this is easiest to remember.. NL is now more consistently 1/6 grams plus 1/40 over 140 Has been using [employer] to look up foods and count carbs more in the last week. Full med list reviewed in [employer]. No other meds. Objective: Female patient, appears somewhat sleepy by video- but just woke up and oriented, smiling. Glucose Monitoring: Home glucose monitoring: Dexcom data over the last 2 weeks shows an average of 158+/-76. 59% of hertime in range, 5% of her time low, 1% of her time urgent low. She is sometimes having lows at work about 3-4 hours after her meals--pre next meal. She is spiking quite a bit after her meals. Meals are extremely variable in time and content. She is trying to count carbs in his utilizing resources to doso. Fasting levels have been everywhere between low and 130. Patient has a hard time seeing any specific patterns. Note fasting can be anywhere between about noon and 4:00 p.m.. No severe hypoglycemia. Last A1c: Lab Results [...] mellitus during in first trimester Plan: 1. Hold off on NPH before sleep [...] and A1c in mid to late January. NT APPLICATION SUPPORT SPECIALIST documented in this encounter Plan of Treatment Scheduled Referrals Name Type Priority Associated Diagnoses Order S [facility] Referral Routine Type 1 diabetes julio Ordered: 02/03/2020 Visit without complication (HRC) Pre-existing diabetes mellitus during in first trimester documented as of this encounter Visit Diagnoses Diagnosis Type 1 diabetes mellitus without complic ation (HRC) - Primary Type I (juvenile type) diabetes mellitus without mention of complication, not stated as uncontrolled Subclinical hypothyroidism Other specified acquired hypothyroidism Pre-existing diabetes mellitus during pr egnancy in first trimester documented in this encounter Care Teams Machine Setup Operator Relationship Specialty Start Date End Date Palmira Lim MD PCP - General 05/08/06 [address] [address] documented as of this encounter
--- OUTSIDE RECORDS SUMMARY | 2021-12-08 10:27 | XMS_ITS | Encounter Summary ---
:2000 Author Organization [employer] Address [address] [place] [address] Care Team Providers Name Role Phone Palmira Lim MD Primary Care Provider Reason for Visit Reason Comments Ultrasound Results Encounter Details Date Type Department Care Team Description 01/23/2020 Telephone [place] [facility] O'Nabila Jordan nd Results Services-PIECE WORK CHECKER MD Maricruz [address] [place] [address], [address] [place] [address] [facility] [address] [place], [place] [phone] Social History Tobacco Use Types Packs/Day Years [...] this encounter Nursing Notes Twila Suarez - 01/23/2020 3:27 PM CST Called patient, reviewed provider's note below. Patient verbalizes understanding and agrees with plan. TING SPECIALIST Twila Suarez - 01/23/2020 3:27 PM CST ----- Message from Nabila Stokes MD sent at 01/23/2020 2:09 PM PRINTING SPECIALIST ----- Please call the patient and let her know that her recent dating US looks good overall! Now that thisUS is completed, I have reached out to the [facility] department to schedule her for a consultation with [facility] physician to discuss her diabetes as well as a genetic counselor. Please and thank you! ----- Message ----- From: Anup Pringle Results In Sent: 01/23/2020 1:26 PM PRINTING SPECIALIST To: Nabila Stokes MD TING SPECIALIST documented in this encounter Plan of Treatment Not on filedocumented as of this encounter Visit Diagnoses Not on filedocumented in this encounter Care Teams Graphics Intern Relationship Specialty Start Date End Date Palmira Lim MD PCP - General 05/08/06 [address] [place] [address] documented as of this encounter
--- OUTSIDE RECORDS SUMMARY | 2021-12-08 10:27 | XMS_ITS | Encounter Summary ---
:2000 Author Organization [employer] Address [address] [place] [address] Care Team Providers Name Role Phone Palmira Lim MD Primary Care Provider Reason for Visit Reason Comments Medication Refill Question Encounter Details Date Type Department Care Team Description 01/12/2020 Telephone [facility] [address], Med ication Refill Endocrinology PA-C Question 3800 [facility] [address] [place] [address]. [place] [id number] Social History Tobacco Use Types Packs/Day Years [...] as of this encounter Nursing Notes Aleida Pace, RN - 01/12/2020 2:13 PM CST Pt stated she has been using Novolog not Humalog and TDD is 30-40 units. Do you want to sign pended Rx? ER MILL OPERATOR Sharon Dover - 01/12/2020 12:08 PM CST Further assistance needed to complete refill request Reason: Clarification for medication regimen needed. Pharmacy asking for specific directions, for insurance billing purposes. Max daily units missing Next Steps: Triage to complete refill as appropriate. CURRENT PRESCRIPTION: Drug Name/Strength: insulin lispro, human, (HUMALOG) 100 UNIT/ML injection pen Sig: ??Inject ??subcutaneously three times daily before meals. 1U for every 40 over 140 on sliding scale 1 U for every 6g carbs ER MILL OPERATOR documented in this encounter Plan of Treatment Not on filedocumented as of this encounter Visit Diagnoses Not on filedocumented in this encounter Care Teams Automatic Developer Relationship Specialty Start Date End Date Palmira Lim MD PCP - General 05/08/[address] [place] [address] documented as of this encounter
--- OUTSIDE RECORDS SUMMARY | 2021-12-08 10:27 | XMS_ITS | Encounter Summary ---
:2000 Author Organization [employer] Address [address] [place] [address] Care Team Providers Name Role Phone Palmira Lim MD Primary Care Provider Reason for Visit Procedure/Equipment (Routine) - Incomplete Specialty Diagnoses / Procedures Referred By Contact Refer red To Contact Diagnoses Missed menses Type 1 diabetes mellitus without complication (HRC) Nabila Stokes MD Procedures US OB <14 Weeks W EV Single US OB < 14 Weeks Single [address] [address] [address] Referral ID Status Reason Start Date Expiration Date Visits V isits Requested Authorized [id number] Incomplete 01/19/2020 04/19/2021 1 1 Encounter Details Date Type Department Care Team Description 01/23/2020 Ancillary [facility] Nabila Stokes Missed m enses; Procedure Services-Ultrasound MD Maricruz Type 1 diabetes mellitus without complic ation (HRC) [address] [place] [address] [address], [address] [address] [phone] Social History Tobacco Use Types Packs/Day Years [...] Date/Time Associated Diagnosis Comme nts US OB <14 WEEKS W Routine 01/23/2020 1:15 PM Missed mens es Results for this EV SINGLE STAVE MILL HAND Type 1 diabetes procedure ar e in mellitus without the results complication (HRC) section. documented in this encounter Results US OB <14 Weeks W EV Single (01/23/2020 1:15 PM STAVE MILL HAND) Anatomical Region Laterality Modality Pelvis Ultrasound Specimen (Source) Anatomical Collection Method Collection Time Re ceived Time Location / / Volume Laterality 01/23/2020 12:27 PM STAVE MILL HAND Impressions 01/23/2020 1:24 PM STAVE MILL HAND COMPARISON: None TECHNIQUE: ??Transabdominal and transvag inal imaging was performed. ?? FINDINGS: Gestational sac: Unremarkable. [place]-rump length measures 1.2 cm, corre sponding to [...] imaging was performed. FINDINGS: Gestational sac: Unremarkable. [place]-rump length measures 1.2 cm, corre sponding to [...] wee ks 3 days. Nabila Stokes MD [facility] US documented in this encounter Visit Diagnoses Diagnosis Missed menses Absence of menstruation Type 1 diabetes mellitus without complic ation (HRC) Type I (juvenile type) diabetes mellitus without mention of complication, not stated as uncontrolled documented in this encounter Care Teams Mammography Tech Relationship Specialty Start Date End Date Palmira Lim MD PCP - General 05/08/06 [address] [place] [address] documented as of this encounter
--- OUTSIDE RECORDS SUMMARY | 2021-12-08 10:27 | XMS_ITS | Encounter Summary ---
:2000 Author Organization [employer] Address [address] [place] [address] Care Team Providers Name Role Phone Palmira Lim MD Primary Care Provider Reason for Referral Consult/Transfer Care (Routine) - Closed Specialty Diagnoses / Procedures Referred By Contact Refer red To Contact Diagnoses at early stage Type 1 diabetes mellitus without complication (HRC) [place] [address] [place] [id number] Referral ID Status Reason Start Date Expiration Date Visits Requ ested Visits Authorized [id number] Closed 01/18/2020 04/18/2021 1 1 Scheduling Instructions Your provider has recommended an appoint ment with [facility]. You may call [phone] to s merrydule your appointment. We suggest you call your health insurance company about your coverage and benefits for this appointment. FITTER HELPER Reason for Visit Reason Comments CONSULT early preg concerns Encounter Details Date Type Department Care Team Description 01/17/2020 Office Visit [facility] Nabila Stokes Pregnanc y at early stage (Primary Dx); Services-PROFILE GRINDER TECHNICIAN MD Maricruz Missed menses; [id number] [facility], [address] [place] [address] DR Tin dyer 1 diabetes mellitus without complication ([facility]) [address] [place] [address] [phone] Social History Tobacco Use Types Packs/Day Years [...] Sign Reading Time Taken Comments Blood Pressure 117/66 01/17/2020 3:33 PM SHIPFITTER HELPER Pulse 80 01/17/2020 3:33 PM SHIPFITTER HELPER Temperature - - Respiratory Rate - - Oxygen Saturation - - Inhaled Oxygen Concentration - - Weight 67.6 kg (149 lb) 01/17/2020 3:33 PM SHIPFITTER HELPER Height - - Body Mass Index 25.58 10/20/2018 1:08 PM CDT documented in this encounter Progress Notes Divya, Nabila Alcantara MD - 01/17/2020 4:00 PM CST Nabila [place] Daphne [id number] 2000 Gynecology Visit Reason for Visit: Early concerns HPI: Nabila T Daphne is a 19 y.o. who presents to clinic today to discuss concerns. The patient's past medical history is notable for type 1 diabetes, diagnosed at 15 years of age, as well as unplanned . The patient reported her last menstrual period was on 11/27/2019. She has not had an ultrasound or blood work completed until 2 hours prior to her appointment today. The patient denies any bright red vaginal bleeding. She does report intermittent urinary frequency, but no hematuria. No concerns with diarrhea or constipation. Regarding the patient's diabetes, again she was diagnosed at 15 years of age. She was admitted to the hospital approximately 2 years ago for DKA, this was only occurrence. She most recently saw endocrinology on 01/13/2020. That note is available within our system. The patient is currently checking herblood sugars 3-4 times per day. She reports her fasting blood sugar this morning was 106. Typically her fasting sugars run anywhere between 100-200. She is taking long- acting insulin around midnight every evening, she is also using NovoLog as a sliding scale as well as carbohydrate coverage. Per Endo,Follow-up was recommended in 1 week from that date, and then every 2 weeks through the . The patient states she is aware that having type 1 diabetes does put her increased risk of pregnancycomplications, as well as developmental abnormalities for the baby. 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 Type 1 diabetes mellitus without complication (HRC) 05/11/2018 Dx 2016 PSHx: Past Surgical History: Procedure Laterality Date ??? SURGICAL HX - NEG Meds:Updated and reviewed in chart Social: Updated and reviewed in chart Review of Systems Remainder of a 8 point Review of Systems is negative Exam: BP 117/66 (BP Location: Right Arm, BP Cuff Size: Regular) Pulse 80 Wt 149 lb (67.6 kg) LMP 11/27/2019 (Exact Date) BMI 25.58 kg/m?? Constitutional: Well appearing, non-toxic female Psych: A&O x3 HEENT: Eyes are normal with clear sclerae. Ears are symmetric. Respiratory: Non-labored breathing with good inspiratory effort CV: Distal extremities are warm and well perfused Musculoskeletal: Normal gait Neuro: Moves all extremities equally Labs: Component Latest Ref Rng & Units 01/17/2020 Microalbumin, Urine, Random mg/L 3.4 Creatinine, Urine, Random >20 mg/dL 52 Ratio <30 mg/g 7 Creatinine 0.55 - 1.02 mg/dL 0.50 (L) GFR, Estimated >60 mL/min/1.73m2 >60 HGB A1C <=5.6 % 11.2 (H) TSH, Sensitive 0.30 - 4.50 uIU/mL 9.11 (H) HCG, Quant. Preg. <=4 mIU/mL 35,463 (H) T4, Free 0.7 - 1.5 ng/dL 0.6 (L) Imaging: Limited bedside ultrasound does show gestational sac and what appears to be a yolk sac. Given this was limited secondary to not having a transvaginal probe, pole and definitive cardiac activity was not appreciated. Assessment: Nabila Serna is a 19 y.o. female with early , complicated by unplanned as well as uncontrolled type 1 diabetes with most recent hemoglobin A1c of 11.2. - Of note, the laboratory findings as above were resulted the day following my visit with the patient. Given these results, the patient was notified to reach out to endocrinology regarding her thyroid level. Regarding her diabetes, complicated , maternal medicine consultation/referral was placed. In addition a formal dating ultrasound was ordered. Nabila Stokes MD P: [phone] 01/17/2020 4:10 PM Dictation Disclaimer: Some notes are completed with voice-recognition dictation software. Typographical errors may result . Please contact me via [employer] staff message if you note any errors requiring clarification. FITTER HELPER documented in this encounter Plan of Treatment Scheduled Referrals Name Type Priority Associated Diagnoses Order S chedule Maternal Referral Routine at ear ly stage Ordered: 01/18/2020 Medicine Consult Type 1 diabetes mellitus without complication (HRC) documented as of this encounter Procedures Procedure Name Priority Date/Time Associated Comments Diagnosis OB CLINIC ULTRASOUND Routine 01/17/2020 4:18 PM Missed menses Results for this LIMITED SHIPFITTER HELPER procedure are i n the results section. documented in this encounter Results Urine Culture [CUR] (01/17/2020 4:25 PM SHIPFITTER HELPER) [facility] gist Method Time Signature Urine Culture Urogenital 01/19/2020 [facility] Susie 1:29 PM SHIPFITTER HELPER HOSPITAL Specimen Anatomical Collection Method Collection Time Receive d Time (Source) Location / / Volume Laterality Urine URINE SPECIMEN Non-blood 01/17/2020 4:25 PM 020 4:25 COLLECTION, CLEAN Collection / SHIPFITTER HELPER PM SHIPFITTER HELPER CATCH / Unknown Unknown Nabila Stokes MD LAB_1 Performing Organization Address City/State/ZIP Code Phon e Number [address] [id number] OB CLINIC ULTRASOUND LIMITED (01/17/2020 4:18 PM SHIPFITTER HELPER) Anatomical Region Laterality Modality Other Impressions 01/17/2020 4:18 PM SHIPFITTER HELPER GS and YS seen in uterus, no cardiac act ivity or discrete pole seen. ??Follow-up pending HCG level. Nabila Stokes MD PN CLINIC US ORDERABLES documented in this encounter Visit Diagnoses Diagnosis at early stage - Primary Missed menses Absence of menstruation Type 1 diabetes mellitus without complic ation (HRC) Type I (juvenile type) diabetes mellitus without mention of complication, not stated as uncontrolled documented in this encounter Care Teams Home Security Alarm Installer Relationship Specialty Start Date End Date Palmira Lim MD PCP - General 05/08/[address] [place] [address] documented as of this encounter
--- OUTSIDE RECORDS SUMMARY | 2021-12-08 10:27 | XMS_ITS | Encounter Summary ---
:2000 Author Organization [employer] Address [address] [place] [address] Care Team Providers Name Role Phone Palmira Lim MD Primary Care Provider Encounter Details Date Type Department Care Team Description 01/17/2020 Lab Visit [facility] Lab Missed menses [address] [facility] , [facility] [address] [place] [address] Social History Tobacco Use [...] Name Priority Date/Time Associated Diagnosis Comme nts URINE CULTURE Routine 01/17/2020 4:25 PM Missed menses Results for this BOOSTER PLANT OPERATOR procedure are i n the results section . documented in this encounter Results Urine Culture [CUR] (01/17/2020 4:25 PM BOOSTER PLANT OPERATOR) [facility] gist Method Time Signature Urine Culture Urogenital 01/19/2020 [facility] 1:29 PM BOOSTER PLANT OPERATOR HOSPITAL Specimen Anatomical Collection Method Collection Time Receive d Time (Source) Location / / Volume Laterality Urine URINE SPECIMEN Non-blood 01/17/2020 4:25 PM 020 4:25 COLLECTION, CLEAN Collection / BOOSTER PLANT OPERATOR PM BOOSTER PLANT OPERATOR CATCH / Unknown Unknown Nabila Stokes MD LAB_1 Performing Organization Address City/State/ZIP Code Phon e Number [address] [id number] documented in this encounter Visit Diagnoses Diagnosis Missed menses Absence of menstruation documented in this encounter Care Teams Reservations Manager Relationship Specialty Start Date End Date Palmira Lim MD PCP - General 05/08/[address] [place] [address] documented as of this encounter
--- OUTSIDE RECORDS SUMMARY | 2021-12-08 10:27 | XMS_ITS | Encounter Summary ---
:2000 Author Organization [employer] Address [address] [place] [address] Care Team Providers Name Role Phone Palmira Lim MD Primary Care Provider Reason for Visit Reason Comments Appt. Needed Encounter Details Date Type Department Care Team Description 03/06/2020 Telephone [facility] O'Nabila Jordan, Appt. Needed Services-DOCUMENT CONTROL SUPERVISOR [address] [address] [place] [address] [place] [address] (Wo rk) Social History Tobacco [...] as of this encounter Nursing Notes Cristine Hensley, LEX - 03/06/2020 5:01 PM CST Spoke with pt, as she has not had NOB1 appt and this was scheduled for 03/08/20. NOB2 appt scheduled 03/19/20. Nabila Stokes MD sent to [facility] ?? The patient has not been seen since December for her notably high-risk with type 1 diabetes. ??She did have the ultrasound completed with perinatology today, which is overall reassuring. ??She needs a follow-up new OB 2 visit in the very near future, preferably within the next week. Please and thank you TRIMMER Cristine Hensley MA - 03/06/2020 5:01 PM CST ----- Message from Nabila Stokes MD sent at 03/06/2020 4:11 PM SHOE TRIMMER ----- The patient has not been seen since December for her notably high-risk with type 1 diabetes. She did have the ultrasound completed with perinatology today, which is overall reassuring. She needs a follow-up new OB 2 visit in the very near future, preferably within the next week. Please and thank you! TRIMMER documented in this encounter Plan of Treatment Not on filedocumented as of this encounter Visit Diagnoses Not on filedocumented in this encounter Care Teams Spacer Type Bar And Segment Relationship Specialty Start Date End Date Palmira Lim MD PCP - General 05/08/06 [address] [address] documented as of this encounter
--- OUTSIDE RECORDS SUMMARY | 2021-12-08 10:27 | XMS_ITS | Encounter Summary ---
:2000 Author Organization [employer] Address [address] [place] [address] Care Team Providers Name Role Phone Palmira Lim MD Primary Care Provider Reason for Visit Reason Comments Medication Problems Encounter Details Date Type Department Care Team Description 01/11/2020 Telephone [facility] Palmira Lim, Medication Problems [address] [place] [address] [place], [place] [phone] (Wo rk) Social History Tobacco Use Types [...] as of this encounter Nursing Notes Twila Godwin, ANDRE - 01/11/2020 6:34 PM CST Mom calling with concerns regarding patient's insulin prescription that was sent today. Pharmacy is not able to fill as there is missing information. Patient only has 10 units of insulin left. Warm transferred mom to Careline for further assistance. No additional questions or concerns for PN [id number] at this time. UNICATIONS COORDINATOR documented in this encounter Plan of Treatment Not on filedocumented as of this encounter Visit Diagnoses Not on filedocumented in this encounter Care Teams Websphere Process Server Developer Relationship Specialty Start Date End Date Palmira Lim MD PCP - General 05/08/06 [address] [address] documented as of this encounter
[2021-12-08 10:28] LABS: Basophils Percent Auto 0.1 % (0.0-3.0); Eosinophils Percent Auto 0.1 % (0.0-7.0); HCO3 VBG 6 mmol/L (21-28); Hematocrit 43.1 % (33.0-51.0); Hemoglobin* 14.4 gm/dL (12.0-16.0); Immature Granulocytes Abs Auto 0.09 K/uL (0.00-0.30); Lymphocytes Percent Auto 7.8 % (20-44); Mean Corpuscular HGB Conc 33 gm/dL (32-36); Mean Corpuscular Hemoglobin 29 pg (26-34); Mean Corpuscular Volume 87 fL (80-100); Neutrophils Percent Auto 89.6 % (42.0-72.0); Platelet Count* 379 K/uL (140-440); RDW Coefficient of Variation % 13.1 % (11.5-15.5); Red Blood Count 4.98 m/uL (4.00-5.20)
[2021-12-08] MEDS: diphenhydrAMINE 50 MG/ML inj 12.5 MG IVP (10:28)
--- OUTSIDE RECORDS SUMMARY | 2021-12-08 10:28 | XMS_ITS | Encounter Summary ---
:2000 Author Organization [employer] Address [address] [place] [address] Care Team Providers Name Role Phone Palmira Lim MD Primary Care Provider Reason for Visit Reason Comments BLADDER INFECTION INFECTION, YEAST Vaginal Discharge Encounter Details Date Type Department Care Team Description 09/28/2015 Office Visit [facility] lindsay blood sugar (Primary Dx); Jabier Dysuria; [address] Glucosuria; KAYLYN Broderick Ketonuria; [address] Vaginal discharge [phone] Social History Tobacco Use Types Packs/Day Years Used Date Smoking Tobacco: Passive Smoke Exposure - Never Smoker Smokeless Tobacco: Never Comments: mom smokes Alcohol Use Standard Drinks/Week Comments No 0 (1 standard drink = 0.6 oz pure alcoho l) Sex Assigned at Date Recorded Female 09/14/2020 7:23 AM CDT documented as of this encounter Last Filed Vital Signs Vital Sign Reading Time Taken Comments Blood Pressure 129/81 09/28/2015 7:28 PM CDT Pulse 100 09/28/2015 7:28 PM CDT Temperature 36.3 ??C (97.4 ??F) 09/28/2015 7:28 PM CDT Respiratory Rate - - Oxygen Saturation 98% 09/28/2015 7:28 PM CDT Inhaled Oxygen Concentration - - Weight 56.2 kg (124 lb) 09/28/2015 7:28 PM CDT Height - - Body Mass Index - - documented in this encounter Patient Instructions Patient InstructionsVentura Guajardo PA-C - 09/28/2015 7:56 PM CDT Vitals: Pulse 100 Temperature 97.4F SpO2 98% AccuCheck 507 Subjective weight loss ~20 lbs (140# ~2 months ago) Increased thirst, appetite and urination Go to Emergency Department for further evaluation documented in this encounter Progress Notes Ventura Guajardo PA-C - 09/28/2015 9:24 PM CDT SUBJECTIVE: Nabila Serna is a 15 y.o. old female who presents today brought in by her mother for evaluation of a possible bladder and/or vaginal infection. She reports a three-day history of dysuria and pain when wiping after urinating. Today she noticed a change in vaginal discharge which she describes as yellow, watery and with a slight odor. Feels that there is slight itching and soreness in the vaginal area. She reports urinating frequently but states that she drinks a lot of water. She recently restarted Depo-Provera and states that she had vaginal bleeding for approximately 2 weeks and that ended just 3 days ago. She denies any concern for STDs but states that she has been sexually active in the past. She is unsure if she has ever been screened for chlamydia/gonorrhea. States that she has not been sexually active recently. Denies associated fevers, chills, nausea, vomiting, hematuria. Received in a results which revealed ketones >80 and Glucose 500. Asked patient if she felt that she was thirsty all the time and had increased appetite which she stated that she did. She has had cravings for sweets. Has lost approximately 20 pounds in the past couple months stating that she used to weigh approximately 140 pounds and today she has 124 pounds. Medications: Adderall, Depo-Provera Allergies: No Known Allergies OBJECTIVE: BP 129/81 mmHg Pulse 100 Temp(Src) 97.4 ??F (36.3 ??C) (Tympanic) Wt 124 lb (56.246 kg) GuJ456% LMP 09/24/2015 General: NAD. Friendly and cooperative. No formal exam was done today. Component Latest Ref Rng 09/28/2015 Urine Color Yellow Urine Clarity Clear Sp Gr 1.005 - 1.030 1.015 Leuk NEG Negative Nitr NEG Negative pH 4.5 - 8.0 5.0 Uprot NEG mg/dl Negative Ugluc NEG 500 (A) uket NEG >80 (A) Urob 0.2 - 1.0 EU/dl 0.2 Bili NEG Negative ubld NEGTR Neg/Tr Comment Micro Not Indicated AccuCheck 507 ASSESSMENT: 1. Elevated blood sugar 2. Dysuria 3. Glucosuria 4. Ketonuria 5. Vaginal discharge PLAN: Reviewed lab results with patient, mother and sister. Patient likely has type 1 diabetes. She was referred to [facility] Emergency Department for further evaluation/treatment. She was given copies of her lab results. Mother was agreeable with the plan and expressed understanding. Ventura Guajardo PA-C First year PA student from [employer] present for the office visit. documented in this encounter Nursing Notes Rosalina Xavier - 09/28/2015 7:56 PM CDT Accucheck performed; glucose level 507 mg/dl. Provider notified of critical results. Rosalina Xavier 09/28/2015, 7:59 PM documented in this encounter Plan of Treatment Not on filedocumented as of this encounter Procedures Procedure Name Priority Date/Time Associated Diagnosis Comme nts GLUCOSE, WHOLE Routine 09/28/2015 7:54 PM Results for this BLOOD POCT CDT procedure are i n the results section. UA MICRO IF Routine 09/28/2015 7:19 PM Dysuria Results f or this CDT procedure are i n the results section. documented in this encounter Results (ABNORMAL) Glucose, Whole Blood POC (09/28/2015 7:54 PM CDT) [facility] Method Time Signature Glucose, Whole 507 (HH) 70 - 180 [facility] Blood mg/dl [facility] Specimen Anatomical Collection Method Collection Time Receive d Time (Source) Location / / Volume Laterality 09/28/2015 7:54 PM 6 2:31 CDT PM CDT Physician Unknown LAB_1 Performing Organization Address City/[facility]/ZIP Code Phon e Number [facility] [phone] (ABNORMAL) UA Micro If (09/28/2015 7:19 PM CDT) [facility] Method Time Signature Urine Color Yellow [facility] Urine Clarity Clear [facility] Sp Gr 1.015 1.005 - [facility] 1.030 [facility] Leuk Negative NEG [facility] Nitr Negative NEG [facility] pH 5.0 4.5 - 8.0 [facility] Prot Negative NEG mg/dl [facility] Gluc 500 (A) NEG [facility] Ket >80 (A) NEG [facility] Urob 0.2 0.2 - 1.0 [facility] EU/dl [facility] Bili Negative NEG [facility] Blood Neg/Tr NEGTR [facility] Comment Micro Not [facility] Indicated [facility] Specimen Anatomical Collection Method Collection Time Receive d Time (Source) Location / / Volume Laterality 09/28/2015 7:19 PM 6 7:20 CDT PM CDT Narrative [facility] - 09/28/2015 7:38 PM C DT Performed at [facility], [facility] [address] [place] [address] Ventura Guajardo PA-C LAB_1 Performing Organization Address City/[facility] Phon e Number [facility] [phone] documented in this encounter Visit Diagnoses Diagnosis Elevated blood sugar - Primary Other abnormal glucose Dysuria Glucosuria Glycosuria Ketonuria Acetonuria Vaginal discharge Leukorrhea, not specified as infective documented in this encounter Care Teams Section Gang Relationship Specialty Start Date End Date Palmira Lim MD PCP - General 05/08/[address] [place] [address] documented as of this encounter
--- OUTSIDE RECORDS SUMMARY | 2021-12-08 10:28 | XMS_ITS | Encounter Summary ---
:2000 Author Organization [employer] Address [address] [place] [address] Care Team Providers Name Role Phone Palmira Lim MD Primary Care Provider Reason for Referral Consult/Transfer Care (Routine) - Closed Specialty Diagnoses / Procedures Referred By Contact Refer red To Contact Diagnoses Paronychia of great toe, left Ann Evans APRN, CNP [address] [place] [place] [address] Referral ID Status Reason Start Date Expiration Date Visits Requ ested Visits Authorized [id number] Closed 08/04/2018 11/03/2019 1 1 Scheduling Instructions Your provider has recommended an appoint ment with [facility]. You may call [phone] to sc hedule your appointment. If you do not schedule an appointment within the next 1 to 3 business days, we will call you to help arrange your appointment. We sugges t you call your health insurance company about your coverage and benefits for thi s appointment. Reason for Visit Reason Comments NAIL PROBLEM Encounter Details Date Type Department Care Team Description 08/04/2018 Hospital Encounter [facility] Ann Evans, Paronychia of great Care MITZI NICK toe, left [address] [facility], [address] [place] [address] [phone] Social History Tobacco Use Types Packs/Day Years [...] Sign Reading Time Taken Comments Blood Pressure 122/75 08/04/2018 1:31 PM CDT Pulse 89 08/04/2018 1:31 PM CDT Temperature 37.4 ??C (99.4 ??F) 08/04/2018 1:31 PM CDT Respiratory Rate 16 08/04/2018 1:31 PM CDT Oxygen Saturation 96% 08/04/2018 1:31 PM CDT Inhaled Oxygen Concentration - - Weight - - Height - - Body Mass Index - - documented in this encounter Discharge Instructions Discharge InstructionsAnn Evans APRN, WAREHOUSE ASSOCIATE DRIVER - 08/04/2018 1:43 PM CDT Images from the original note were not included. Paronychia in Children: Care Instructions Your Care Instructions Paronychia (say gmxk-hl-CN-arabella-uh) is an infection of the skin around a fingernail or toenail. It happens when germs enter through a break in the skin. The doctor may have made a small cut in the infected area to drain the pus. Most cases of paronychia improve in a few days. But watch your child's symptoms and follow your doctor's advice. Though rare, a mild case can turn into something more serious and infect the entire finger or toe. Also, it is possible for an infection to return. Follow-up care is a scott part of your child's treatment and safety. Be sure to make and go to all appointments, and call your doctor if your child is having problems. It's also a good idea to know your child's test results and keep a list of the medicines your child takes. How can you care for your child at home? ?? If your doctor told you how to care for your child's infected nail, follow your doctor's instructions. If you did not get instructions, follow this general advice: ? Wash the area with clean water 2 times a day. Don't use hydrogen peroxide or alcohol, which can slow healing. ? You may cover the area with a thin layer of petroleum jelly, such as Vaseline, and a nonstick bandage. ? Apply more petroleum jelly and replace the bandage as needed. ?? If the doctor prescribed antibiotics for your child, give them as directed. Do not stop using them just because your child feels better. Your child needs to take the full course of antibiotics. ?? Give your child an ampt-ujm-afwgmvf pain medicine, such as acetaminophen (Tylenol) or ibuprofen (Advil, Motrin). Be safe with medicines. Read and follow all instructions on the label. ?? Do not give a child two or more pain medicines at the same time unless the doctor told you to. Many pain medicines have acetaminophen, which is Tylenol. Too much acetaminophen (Tylenol) can be harmful. ?? Prop up the toe or finger so that it is higher than the level of your child's heart. This will help with pain and swelling. ?? Apply heat. Put a warm water bottle or a warm cloth on the finger or toe. Keep a cloth between the warm water bottle and your child's skin. ?? Soak the area in warm water twice a day for 15 minutes each time. After soaking, dry the area well and apply a thin layer of petroleum jelly, such as Vaseline. Put on a new bandage. When should you call for help? Call your doctor now or seek immediate medical care if: ? Your child has signs of new or worsening infection, such as: ? Increased pain, swelling, warmth, or redness. ? Red streaks leading from the infected skin. ? Pus draining from the area. ? A fever. ?? Watch closely for changes in your child's health, and be sure to contact your doctor if: ? Your child does not get better as expected. Where can you learn more? 1. Go to https://Black coin/SGN ([employer])rary or [employer]/Brij[employer] Imaging Systemsrary. 2. Enter H588 in the search box. Current as of: June 16, 2017 Content Version: 12.0 ?? [id number] [employer] Care instructions adapted under license by your healthcare professional. If you have questions about a medical condition or this instruction, always ask your healthcare professional. [employer] disclaims any warranty or liability for your use of this information. documented in this encounter Medications at Time of Discharge Medication Sig Dispensed Refills Start Date End Date cephalexin (KEFLEX) 500 MG Take 1 Capsule by 21 Capsule 0 08/11/2018 capsule mouth three times a day for 7 days. HUMALOG 100 UNIT/ML pen 1u per 8 grams and 9 06/3007/19/2019 cartridge 1/40>140 Insulin Degludec (TRESIBA) 30 Units daily. 0 11/17/2018 100 UNIT/ML SOLN insulin lispro, human, 1U for every 40 over 140 on sliding scale 0 05/20/2018 03/29/2019 (HUMALOG, ADMELOG) 100 1 U for every 8g carbs UNIT/ML injection pen levothyroxine (SYNTHROID) Take 1 Tablet by 90 Tablet 3 06/3007/19/2019 50 MCG tabletIndications: mouth daily. Subclinical hypothyroidism documented as of this encounter ED Notes Ann Evans APRN, CNP - 08/04/2018 1:45 PM CDT URGENT CARE PROGRESS NOTE SUBJECTIVE: Patient is a pleasant 17 yr old female who presents to the urgent care with an infectionof the left great toenail due to cutting her toenails too short. Patient states the toe was red. Throbbing. She did have some discharge. No fever, chills or flu-like symptoms. She is diabetic. Blood sugars have been within her normal range. She has not tried any dmjz-kvk-oceeunb medications or home remedies for symptoms. Patient's medications, allergies, past medical,surgical, social, and family histories were reviewed and updated as appropriate. MEDICATIONS: Reviewed in [facility] ADVERSE DRUG REACTIONS: Reviewed in [facility] PAST MEDICAL HISTORY: Reviewed in [facility] PAST SURGICAL HISTORY: Reviewed in [facility] ROS: Review of Systems - Negative except what is noted above. OBJECTIVE: Vital Signs: BP 122/75 (BP Location: Right Arm, BP Cuff Size: Adult Regular) Pulse 89 Temp 37.4 ??C (99.4 ??F) (Oral) Resp 16 LMP 07/04/2018 (Approximate) SpO2 96% General appearance: alert, cooperative, no distress, appears stated age Head: Normocephalic, without obvious abnormality, atraumatic Skin: Left great toe is erythematous around the nail but mainly over the medial aspect of the great toenail. Tender to palpation. Toenail is cut very shirt distally. No results found for this visit on 08/04/18. ASSESSMENT: 1. Paronychia of great toe, left PLAN: Patient declined partial removal of nail today. She would like to try antibiotics and then when the pain is better she will try to work on the ingrown toenail or letting it grow out as she cut it too short distally. If she is unsuccessful, then she will call Podiatry as she is diabetic for further eval uation and treatment. Warm foot soaks. OTC medications for pain. Medications Prescribed this Visit Disp Refills Start End cephalexin (KEFLEX) 500 MG capsule 21 Capsule 0 08/04/2018 08/11/2018 Take 1 Capsule by mouth three times a day for 7 days. Oral Understanding was verbalized with treatment plan. Discharged in stable condition. This dictation was performed with the assistance of a voice recognition software and may contain voice recognition errors. documented in this encounter Plan of Treatment Scheduled Referrals Name Type Priority Associated Diagnoses Order S chedule Foot & Ankle/Podiatry Referral Routine Paronychia of great toe, Ordered: 08/04/2018 Consult-Adult/Peds left documented as of this encounter Visit Diagnoses Diagnosis Paronychia of great toe, left Onychia and paronychia of toe Triage Assessment Note - Ilana Rogers RN - 08/04/2018 1:30 PM CDT Per pt, cut L big toe nail too short on Thursday. Toe red and painful. documented in this encounter Care Teams It Security Engineer Relationship Specialty Start Date End Date Palmira Lim MD PCP - General 05/08/[address] [place] [address] documented as of this encounter
--- OUTSIDE RECORDS SUMMARY | 2021-12-08 10:28 | XMS_ITS | Encounter Summary ---
:1999 Author Organization [employer] Address [address] [place] [address] Care Team Providers Name Role Phone Palmira Lim MD Primary Care Provider Reason for Visit Reason Comments LAB RESULTS Encounter Details Date Type Department Care Team Description 07/15/2018 Notes/Orders [facility] [address] [facility] [facility] KAIN F[facility] hyp[facility] ([facility] [address] [facility] [address] [facility] [address] [place] [address] [phone] Social History Tobacco Use Types Packs/Day Years [...] encounter Progress Notes Lilian Maldonado MBBS - 07/15/2018 7:46 AM CDT TSH indicates underactive thyroid. Start levothyroxine 50 mcg daily. Repeat blood work in 6 weeks. Carlee Nicole, RN - 07/15/2018 7:46 AM CDT Left message to call back. Letter sent. documented in this encounter Plan of Treatment Not on filedocumented as of this encounter Visit Diagnoses Diagnosis Subclinical hypothyroidism - Primary Other specified acquired hypothyroidism documented in this encounter Care Teams Publishing Agent Relationship Specialty Start Date End Date Palmira Lim MD PCP - General 05/08/[address] [place] [address] documented as of this encounter
--- OUTSIDE RECORDS SUMMARY | 2021-12-08 10:28 | XMS_ITS | Encounter Summary ---
:1999 Author Organization [employer] Address [address] [place] [address] Care Team Providers Name Role Phone Palmira Lim MD Primary Care Provider Reason for Visit Reason Comments Missed Appointment Encounter Details Date Type Department Care Team Description 12/24/2018 Telephone [facility] Keyla Adams , Missed Appointment Wendy POWELL, CDE [address] [address] [place] [address] [facility] [phone] [place] [address] Social History Tobacco Use Types [...] documented as of this encounter Nursing Notes Keyla Adams RN, CDE - 12/24/2018 10:37 AM CDT Called and LM stating we had been expecting her at 10 am. Requested call back to [phone] to letus know if she was coming or wanted to reschedule. documented in this encounter Plan of Treatment Not on filedocumented as of this encounter Visit Diagnoses Not on filedocumented in this encounter Care Teams Satellite Television Installer Relationship Specialty Start Date End Date Palmira Lim MD PCP - General 05/08/06 [address], [place] [address] documented as of this encounter
--- OUTSIDE RECORDS SUMMARY | 2021-12-08 10:28 | XMS_ITS | Encounter Summary ---
:2000 Author Organization [employer] Address [address] [place] [address] Care Team Providers Name Role Phone Palmira Lim MD Primary Care Provider Reason for Visit Reason Comments Diabetes Encounter Details Date Type Department Care Team Description 10/20/2018 Office Visit Pita Frey Uncontrolled type I diabetes mellitus without complication (HRC) (Primary Dx); Endocrinology L, PA-C Subclinical hypothyroidism; [address] [place] [address] [place] [phone] [id number] Social History Tobacco Use Types Packs/Day Years [...] Sign Reading Time Taken Comments Blood Pressure 121/77 10/20/2018 1:08 PM CDT Pulse 81 10/20/2018 1:08 PM CDT Temperature - - Respiratory Rate - - Oxygen Saturation - - Inhaled Oxygen Concentration - - Weight 80 kg (176 lb 4.8 oz) 10/20/2018 1:08 PM CDT Height 162.6 cm (5' 4) 10/20/2018 1:08 PM CDT Body Mass Index 30.26 10/20/2018 1:08 PM CDT documented in this encounter Patient Instructions Patient InstructionsPita Salinas - 10/20/2018 1:00 PM CDT Your A1c today is: 9.4% Instructions: 1) Try Humalog 1 u/ 6 grams for dinner meal and evening snack too 2) BG targets: 80-130 fasting and before meals, 80-180 2 hours after meals. Call with out of target numbers between visits. 3) Due to update eye exam. If you go outside of [facility], please have records of your visit faxed to [phone]. If you see a [facility] eye doctor, please call the Opthalmology department [phone] to schedule your appointment. Follow up in 1 mo with GENE, 3 mo with Pita, [address] Maldonado. If you need to schedule or have questions about your appointment, please call [phone]. If you have medical questions or concerns, please contact the triage nurse at [phone]. Thanks for visiting today! Commend documented in this encounter Progress Notes Kathy Caruso LPN - 10/20/2018 1:00 PM CDT Addended by: KATHY CARUSO on: 10/20/2018 01:44 PM Modules accepted: Orders Kathy Caruso LPN - 10/20/2018 1:00 PM CDT Addended by: KATHY CARUSO on: 10/20/2018 01:44 PM Modules accepted: Orders Pita Salinas - 10/20/2018 1:00 PM CDT Images from the original note were not included. [facility]: [address] [place] [address] [place] [address] Clinic: [address] [id number] [phone], Nurse Line: [phone] Diabetes Progress Note October 20, 2018 Subjective: Chief complaint: Nabila Serna is a 18 y.o. female here for management of type 1 diabetes. Diagnosed: 2016 Complications: none Co-morbidites/Pertinent past medical history: ADD, overweight, subclinical hypothyroidism Last visit: 06/[address] Maldonado HPI: Today's A1c: 9.4 Last A1c: 9.7 in 06/2018 Blood glucose data: See attached. Glucoses are doing better. She met with [facility] and has changed her diet, mostly by eating more vegetables. Also working on dosing her insulin before eating. She might miss breakfast, averages about 5 u humalog with lunch and dinner. Snacks are in the evening, might be upto 3-4 units around 8-9 pm. She will rise after that and after going to bed around 10- 11 pm. ROS: No complaints noted. Didn't start levothyroxine after last visit because she reports not knowing how to take it. She started going to the gym. After the visit I noted she had gained 18 pounds since last visit. 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 Tobacco use. Current Medications: 1. Tresiba 30 u daily 2. Humalog 1 u/ 8 grams + 1 u/ 40 > 120, average All medications reviewed and updated in Epic today. Last foot exam: 04/2018 Last eye exam: Due Objective: Physical Exam: BP 121/77 (BP Location: Right Arm, BP Cuff Size: Large) Pulse 81 Ht 5' 4 (1.626 m) Wt 176 lb 4.8 oz (80 kg) BMI 30.26 kg/m?? , Estimated body mass index is 30.26 kg/m?? as calculated from the following: Height as of this encounter: 5' 4 (1.626 m). Weight as of this encounter: 176 lb 4.8 oz (80 kg). General: NAD. Further physical exam deferred for time spent in counseling. Labs: See below for recent lab results. Labs were reviewed and any labs due were placed on order. Assessment: 1. Type 1 diabetes 2. Hypothyroidism 3. Overweight, with recent significant weight gain Plan: Commended her on her efforts. 1) Try Humalog 1 u/ 6 grams for dinner meal and evening snack too 2) BG targets: 80-130 fasting and before meals, 80-180 2 hours after meals. Call with out of target numbers between visits. 3) Due to update eye exam. If you go outside of [facility], please have records of your visit faxed to [phone]. If you see a [facility] eye doctor, please call the Opthalmology department [phone] to schedule your appointment. 4) Discussed hypothyroidism and levothyroxine. Lab in 6 weeks. Discussed symptoms of over-replacement and to call with these. 5) Need to monitor weight at upcoming visits. She is making lifestyle changes. Levothyroxine should also help. Follow up in 1 mo with GENE, 3 mo with Pita, [address] Maldonado. Provided triage nurse line and asked patient to call with any questions or concerns. Pita Salinas PA-C Adult Endocrinology Labs: Creatinine Serum Date Value Ref Range Status 05/20/2018 0.60 0.55 - 1.02 mg/dL Final Est GFR Am Date Value Ref Range Status 05/20/2018 >60 >60 mL/min/1.73m2 Final Est GFR Non-Afr Am Date Value Ref Range Status 05/20/2018 >60 >60 mL/min/1.73m2 Final Comment: Normal>60, moderate decrease 30 - 59, severe decrease 15 - 29, renal failure <15 mL/min/1.73 m2 NOTE: Choose the eGFR result above appropriate for the race of the patient. Lab Results Component Value Date Microalbumin Urine <10.0 05/20/2018 Lab Results Component Value Date Potassium 4.5 05/20/2018 Lab Results Component Value Date Sodium 138 05/20/2018 Lab Results Component Value Date Cholesterol 163 05/20/2018 Cholesterol/HDL Ratio Screen 3.9 05/20/2018 HDL Cholesterol 42 05/20/2018 Triglycerides 75 05/20/2018 LDL Calculated 106 05/20/2018 No results found for: AST, ALT TSH, Sensitive Date Value Ref Range Status 07/14/2018 5.05 (H) 0.30 - 4.50 uIU/mL Final PMHx: Past Medical History: Diagnosis Date ??? Type 1 diabetes mellitus without complication (HRC) 05/11/2018 Dx 2016 Past Surgical History: Procedure Laterality Date ??? SURGICAL HX - NEG Allergies Allergen Reactions ??? Shrimp (Diagnostic) Breathing Difficulty and Other, see comments Lips swelling FHx: No family history on file. Kathy Caruso LPN - 10/20/2018 1:00 PM CDT Images from the original note were not included. documented in this encounter Plan of Treatment Not on filedocumented as of this encounter Procedures Procedure Name Priority Date/Time Associated Diagnosis Comme nts POCT GLYCOSYLATED Routine 10/20/2018 1:05 PM Uncontrolled type I Results for this HEMOGLOBIN (HGB A1C) CDT diabetes mellitus pr ocedure are in without complication the res ults (HRC) section. documented in this encounter Results (ABNORMAL) POCT glycosylated hemoglobin (Hb A1C) (10/20/2018 1:05 PM CDT) P athologist Signature Hemoglobin A1C, 9.4 (A) 4 - 5.6 % POCT POC Cartridge Lot# [id number] POCT Specimen (Source) Anatomical Collection Method Collection Time Re ceived Time Location / / Volume Laterality Blood 10/20/2018 1:05 PM CDT Pita Salinas PA-C PN POINT OF CARE TESTS Performing Organization Address City/State/ZIP Code Phon e Number POCT documented in this encounter Visit Diagnoses Diagnosis Uncontrolled type I diabetes mellitus wi thout complication - Primary Subclinical hypothyroidism Other specified acquired hypothyroidism Hyperglycemia Other abnormal glucose documented in this encounter Care Teams Sand Control Worker Relationship Specialty Start Date End Date Palmira Lim MD PCP - General 05/08/[address] [place] [address] documented as of this encounter
--- OUTSIDE RECORDS SUMMARY | 2021-12-08 10:28 | XMS_ITS | Encounter Summary ---
:1999 Author Organization [employer] Address [address] [place] [address] Care Team Providers Name Role Phone Palmira Lim MD Primary Care Provider Reason for Visit Reason Comments Dental Conversion Legacy EDR to Arnold convers ion Encounter Details Date Type Department Care Team Description 08/07/2016 Dental Conversion [facility] Path, [facility] DDS [address] [place] [address] Social History Tobacco Use Types Packs/Day Years Used Date Smoking Tobacco: Passive Smoke Exposure - Never Smoker Smokeless Tobacco: Never Comments: mom smokes Alcohol Use Standard Drinks/Week Comments No 0 (1 standard drink = 0.6 oz pure alcoho l) Sex Assigned at Date Recorded Female 09/14/2020 7:23 AM CDT documented as of this encounter Discharge Summaries Interface, In Edr Dental Conversion - 11/08/2016 12:00 AM CDT 11/08/2016: EDR Pt Notes: 11-30-04 failed see contacts documented in this encounter Plan of Treatment Not on filedocumented as of this encounter Visit Diagnoses Not on filedocumented in this encounter Care Teams Vessel Welder Relationship Specialty Start Date End Date Palmira Lim MD PCP - General 05/08/[address] [place] [address] documented as of this encounter
--- OUTSIDE RECORDS SUMMARY | 2021-12-08 10:28 | XMS_ITS | Encounter Summary ---
:2000 Author Organization [facility] Address [address] [place] [address] Care Team Providers Name Role Phone Palmira Lim MD Primary Care Provider Reason for Visit Reason Comments DIABETES EDUCATION Consult/Transfer Care (Routine) - Closed Specialty Diagnoses / Procedures Referred By Contact Refer red To Contact Diagnoses Uncontrolled type I diabetes mellitus without complication Thyroid enlargement (HRC) Lilian Maldonado, KAIN [address] [place], [place] [address] Referral ID Status Reason Start Date Expiration Date Visits Requ ested Visits Authorized [id number] Closed 07/14/2018 10/13/2019 1 1 Encounter Details Date Type Department Care Team Description 10/13/2018 Office Visit [facility] Typ e 1 diabetes mellitus Diabet with hyperglycemia (HRC) [address] [facility] (Primary Dx) [place] [address] Social History Tobacco Use Types [...] documented as of this encounter Progress Notes Michelle Almonte, RD, CDE - 10/13/2018 2:15 PM CDT Subjective: Nabila attends unaccompanied. Dx with DM1 in 2016. [facility]. Nabila is engaged and has a lot of very good questions. What is the most important concern you want to discuss today? Setting up a healthy eating plan How are you feeling about having diabetes? Fine Is there anything preventing you from managing your diabetes? No Sometimes patients forget or skip taking their diabetes medication as prescribed. How many times a week do you miss a dose? Once every other month Humalo unit per 8 grams and 1/40 >140 Schedule: Working at [employer], Thursday-Thursday 9 am-5 pm and [employer] Thursday Mornings and Sundays Food Recall: Typical Meal or Snack First Meal 5 piece norwegian toast, may skip syrup OR 3 donuts OR Egg burrito + diet ice tea Snack Second Meal Subway foot long OR Cheeseburger, fries and 12 piece chicken nugget OR 3 chicken sandwiches and 1/2 impossible burger + diet soda Snack Third Meal Audrain wild wings mozzarella sticks, fried pickles, and a Audrain chicken sandwich with fries OR 2 chicken tacos 1/2C rice OR Snack Patient Reported Current Meal Plan: CHO counting, uses the [employer] Senait Alcohol Intake: None Beverages: diet soda and crystal light Food preparation: Patient and boyfriend or cousin cook Dining Out: 2-3 meals per day Food Insecurity: Sometimes towards the end of the pay period Current physical activity includes: Will walk on occasion, plans to join a gym in the near future Weight: Interested in weight loss. Was told DM1 patients gain weight. Objective: Weight: 175.9# This is an individual appointment. No class appropriate for patient at this time. On insulin. Assessment and Plan: Nabila is eating 3 meals per day. Most meals are eaten out of the home. CHO intake seems to be on thehigher end of recommendations. She would benefit from additional fruit and vegetable consumption. Nabila appears motivated and ready to make some lifestyle changes. Nutrition Diagnosis: Excessive carbohydrate intake related to incorrect application of nutrition recommendations as evidenced by food records or diet history. Plan: Reviewed CHO counting using My Food Plan Recommended 45-60 gm CHO per meal and 0-15 gm per snack Reviewed Eating For Better Health briefly to encourage 2-3 servings of fruits/vegetables each day Encouraged activity, reviewed precautions Provided community food resource list Plan: Goals: Date: Category: Goals: Progression: 10/13/2018 Eating Healthy Include at least 1 serving of fruit and 1 serving of vegetables each day Just Starting Community Resources: Emotional Support: Other Fare For All Exercise: [employer]itness [email or web address] Apps: Dynadec Akbar Follow-up: 11/17/18 Time spent with patient: 50 minutes Education content taught can be found in the diabetes education smartform Keyla Adams RN, CDE - 10/13/2018 2:15 PM CDT Images from the original note were not included. Subjective: What is the most important concern you want to discuss today? I just want things to be better How are you feeling about having diabetes? Frustrated at times Objective: There were no vitals taken for this visit. Patient did bring records into the clinic today. CGM:Dexcom Downloaded the dexcom and showed Nabila how to use the senait to look at her reports. Overall Nabila is running high, but she is also having drops in the afternoon. Reviewed that she maynot need to cover all her food at lunch or not take correction at lunch to avoid going low after lunch as this is when her BG numbers seem to drop. Reviewed treatment of hypoglycemia and not correcting hyperglycemia post a low BG number. Some of the concepts were new to her but she is eager to learn how to do better. Had many good questions. No changes today as want to get rid of the low BG first and they are often related to correcting highs. She tends to not correct until she is above 150-180 mg/dl But she does correct highs after lows resulting in more lows with rebound highs. Concerns With: Just want to get less variability Lab results related to diabetes have been reviewed. Assessment and Plan: Continue with current doses Be cautious and don't over treat lows, don't correct highs after lows Call with questions or concerns F/u on 11/17/18 Time spent with patient: 45 Minutes Education content taught can be found in the diabetes education smartform documented in this encounter Plan of Treatment Scheduled Referrals Name Type Priority Associated Diagnoses Order S [facility] Diabetes Education Referral Routine Uncontrolled type I Or dered: 07/14/2018 Visit diabetes mellitus without complication (HR C) Thyroid enlargement documented as of this encounter Visit Diagnoses Diagnosis Type 1 diabetes mellitus with hyperglyce jonah (HRC) - Primary Type I (juvenile type) diabetes mellitus without mention of complication, not stated as uncontrolled documented in this encounter Care Teams Folder And Notcher Relationship Specialty Start Date End Date Palmira Lim MD PCP - General 05/08/[address] [place] [address] documented as of this encounter
--- OUTSIDE RECORDS SUMMARY | 2021-12-08 10:28 | XMS_ITS | Encounter Summary ---
:2000 Author Organization [facility] Address [address] [place] [address] Care Team Providers Name Role Phone Palmira Lim MD Primary Care Provider Encounter Details Date Type Department Care Team Description 10/14/2010 Office Visit [facility] Katya Kunz, Attennahomi n deficit Psychiatry MD disorder with [address] [facility], [address] [place] [address] (Primary [address] [place], [place] Dx) [place], [place] [id number] Social History Tobacco Use Types Packs/Day Years Used Date Smoking Tobacco: Passive Smoke Exposure - Never Smoker Comments: mom smokes Alcohol Use Standard Drinks/Week Comments Not Asked 0 (1 standard drink = 0.6 oz pure alcoho l) Sex Assigned at Date Recorded Female 09/14/2020 7:23 AM CDT documented as of this encounter Last Filed Vital Signs Vital Sign Reading Time Taken Comments Blood Pressure 112/63 10/14/2010 8:46 AM CDT Pulse 69 10/14/2010 8:46 AM CDT Temperature - - Respiratory Rate - - Oxygen Saturation - - Inhaled Oxygen Concentration - - Weight 37.4 kg (82 lb 8 oz) 10/14/2010 8:46 AM CDT Height 145.4 cm (4' 9.25) 10/14/2010 8:46 AM CDT Body Mass Index 17.7 10/14/2010 8:46 AM CDT Body Mass Index Percentile 52.87 % 10/14/2010 8:46 AM CD T Growth Chart: [facility] (Girls, 2-20 Years) documented in this encounter Patient Instructions Patient InstructionsKatya Kunz - 10/14/2010 8:34 AM CDT Find childcare worker when move to [place], establish care for future refills and referral to child psychiatrist as needed documented in this encounter Progress Notes Katya Kunz - 10/11/2010 8:16 AM CDT Nabila Serna 10/14/2010 Psychiatric Follow-Up Visit Reason for Visit: Routine follow-up for psychiatric medication management Current outpatient prescriptions Medication Sig ??? amphetamine-dextroamphetamine (ADDERALL XR) 10 MG 24 hour release capsule Take 1 Cap by mouth every morning. ??? amphetamine-dextroamphetamine (AKA ADDERALL) 10 MG tablet Take 0.5 Tabs by mouth. every afternoon. Chief Complaint: f/u ADHD, upcoming move out of pending sale to [facility] Current History: Nabila is seen with her mother and older sister. She reports had a good end of the school year.Adderall his been quite helpful for her concentration and impulsivity. She has not always taking it during the summer but plans to begin again during the school year. The family will be moving to [place] at the end of the month. She will be attending a school where she will be wearing a uniform. Spent some time processing her feelings regarding the move. She has some anxiety about meeting new people and making friends, but is open excited about some things the family has planned. No concerned today about depression for safety. Medical Review of Systems: no medical problems including gi, preston, tics, palpitations; all other systems negative Labs: No indication for labs at this time. AIMS/DISCUS: N/A Chemical Use: No chemical use Social History Living Situation: bio mother Activities: hobbies/interests include choir, cello, karate Education: Going into sixth grade Mental Status Exam: Nabila is casually groomed. Appears stated age. Behavior in the office is pleasant and cooperative. Good eye contact. Affect is mildly anxious regarding upcoming move; mood is described by patient as I do not know . Gait is normal. There are no abnormal movements. No tics, tremors, grimaces. Speech is of normal rate and rhythm, not pressured. Use of language is consistent with developmental age. Patient is oriented to person, place and time. Attention/concentration are good. Thought process is logical and goal- directed with no looseness of associations. Thought content is on feelings about upcoming move without evidence of psychosis, SI, HI or other abnormality. Fund of knowledge is consistent with developmental status. Memory appears to be intact in both recent and remote abilities. Insight and judgment are limited for age. Assessment: Nabila Serna is an 10-year-old girl with attention deficit hyperactivity disorder, which has been well treated with Adderall without ae. We will continue with current medication. Discussed transition to [place] with supportive therapy regarding upcoming move, supported and validated her f tressa. Discussed ways to make new friends. The patient is at low risk for suicidal behavior. Diagnosis: Granville I: Attention deficit hyperactivity disorder, Granville II: None. Granville III: None. Plan: Continue current meds with no changes Recommend finding a childcare worker upon move to [place] to continue medication management Visit Summary: 25 minutes with >50% of the time spent on educational counseling regarding upcoming move and transition, how to establish care with new providers [id number] This note created using speech-recognition software and may contain unintended word substitutions. Katya Kunz MD documented in this encounter Plan of Treatment Not on filedocumented as of this encounter Visit Diagnoses Diagnosis Attention deficit disorder with hyperact ivity(314.01) ([facility]) - Primary Attention deficit disorder with hyperact ivity documented in this encounter Care Teams Human Resource Adviser Relationship Specialty Start Date End Date Palmira Lim MD PCP - General 05/08/[address] [place] [address] documented as of this encounter
--- OUTSIDE RECORDS SUMMARY | 2021-12-08 10:28 | XMS_ITS | Encounter Summary ---
:1999 Author Organization [facility] Address [address] [place] [address] Care Team Providers Name Role Phone Palmira Lim MD Primary Care Provider Encounter Details Date Type Department Care Team Description 11/12/2010 Correspondence [facility] Hiram Valladares, HEALTH EXAM FORM [address] [facility] [place] [address] [address] [facility] [phone] [place] [phone] (Wo rk) Social History Tobacco Use Types Packs/Day Years Used Date Smoking Tobacco: Passive Smoke Exposure - Never Smoker Smokeless Tobacco: Never Comments: mom smokes Alcohol Use Standard Drinks/Week Comments Not Asked 0 (1 standard drink = 0.6 oz pure alcoho l) Sex Assigned at Date Recorded Female 09/14/2020 7:23 AM CDT documented as of this encounter Progress Notes Hiram Valladares - 11/15/2010 4:19 PM CDT documented in this encounter Plan of Treatment Not on filedocumented as of this encounter Visit Diagnoses Not on filedocumented in this encounter Care Teams Lapping Machine Operator Relationship Specialty Start Date End Date Palmira Lim MD PCP - General 05/08/[address] [place] [address] documented as of this encounter
--- OUTSIDE RECORDS SUMMARY | 2021-12-08 10:28 | XMS_ITS | Encounter Summary ---
:1999 Author Organization [facility] Address [address] [place] [address] Care Team Providers Name Role Phone Palmira Lim MD Primary Care Provider Reason for Visit Reason Comments Eye Exam Diabetes Encounter Details Date Type Department Care Team Description 11/16/2018 Office Visit Sat[facility] Enrique, Encounter for eye exam in patient with type 1 diabetes mellitus (HRC) (Primary Dx); Ophthalmology OD No diabetic retinopathy in either eye; [address] [address] [address] Myopia of both eyes; [place] [address] [place], [place] Regular astigmatism, bilater al [phone] (Wo rk) Social History Tobacco Use Types [...] encounter Progress Notes Satish Carranza, OD - 11/16/2018 12:50 PM CDT REVIEW: ?? Nabila presents for a complete eye and diabetic eye health exam. Reviewed HPI notes, medical history, medications, and allergies GENERAL MEDICAL OBSERVATION: ?? Patient alert, oriented, pleasant. No obvious physical distress ASSESSMENT: ?? Encounter for eye exam in patient with type 1 diabetes mellitus (3 years since diagnosis) ?? No diabetic retinopathy in either eye ?? Myopia of both eyes, minor increase ?? Regular astigmatism, bilateral, minor change PLAN: Discussed findings with patient Watch for changes Spectacle Rx given - change optional ?? Next recommended eye and diabetic eye examination in 1 year or sooner as needed documented in this encounter Plan of Treatment Not on filedocumented as of this encounter Visit Diagnoses Diagnosis Encounter for eye exam in patient with t ype 1 diabetes mellitus ([facility]) - Primary No diabetic retinopathy in either eye Myopia of both eyes Myopia Regular astigmatism, bilateral documented in this encounter Care Teams Membership Manager Relationship Specialty Start Date End Date Palmira Lim MD PCP - General 05/08/[address] [place] [address] documented as of this encounter
--- OUTSIDE RECORDS SUMMARY | 2021-12-08 10:28 | XMS_ITS | Encounter Summary ---
:1999 Author Organization [facility] Address [address] [place] [address] Care Team Providers Name Role Phone Palmira Lim MD Primary Care Provider Encounter Details Date Type Department Care Team Description 05/20/2018 Lab Visit [facility] Type 1 diabetes mellitus wit hout complication (HRC); [address] Screening, anemia, deficienc y, iron; [place] [address] Screening for HIV (human imm unodeficiency virus); [phone] Routine screeni ng for STI (sexually transmitted infection) Social History Tobacco Use Types Packs/Day Years [...] Priority Date/Time Associated Diagnosis Comme nts ALBUMIN/CREAT Routine 05/20/2018 12:27 Type 1 diabetes mellitu s Results for this RATIO PM CDT without complication procedu re are in (HRC) the results section. CHLAMYDIA & GC, Routine 05/20/2018 11:05 Routine screening for Results for this URINE (14 YEARS AM CDT STI (sexually procedure a re in AND OLDER) transmitted infection) the r esults section. HIV 1/2 AG/AB 4TH Routine 05/20/2018 10:58 Screening for HIV ( human Results for this GEN AM CDT immunodeficiency virus) procedure are in Routine screening for the re sults STI (sexually section. transmitted infection) LIPID PANEL AND Routine 05/20/2018 10:58 Type 1 diabetes melli tus Results for this DIRECT LDL(IF AM CDT without complication proced ure are in NEEDED) (HRC) the results section. BASIC METABOLIC Routine 05/20/2018 10:58 Type 1 diabetes melli tus Results for this PANEL AM CDT without complication procedu re are in (HRC) the results section. HGB A1C Routine 05/20/2018 10:58 Results for this AM CDT procedure are i n the results section. HEMOGLOBIN, BLOOD Routine 05/20/2018 10:57 Screening, anemia, Results for this AM CDT deficiency, iron procedure a re in the results section. documented in this encounter Results Microalb/Creat Ratio (05/20/2018 12:27 PM CDT) athologist Signature Microalbumin <10.0 mg/L PN SOFT Urine U Creat Random 140 mg/dL PN SOFT Microalbumin/Crea <10.0 0.0 - 30.0 PN SOFT tinine Ratio Specimen Anatomical Collection Method Collection Time Receive d Time (Source) Location / / Volume Laterality Urine specimen 05/20/2018 12:27 9 (specimen) PM CDT 12:27 PM CDT Narrative PN SOFT - 05/20/2018 4:27 PM CDT Performed at [facility], [address] [place] [address] CLIA number [id number] Tara Lopez APRN, JOINTER OPERATOR LAB_1 Performing Organization Address City/State/ZIP Code Phon e Number PN SOFT [address] [place], [place] [id number] Chlamydia & GC, Urine (05/20/2018 11:05 AM CDT) athologist Signature Urine Negative Negative PN SOFT Chlamydia STD Comment: Test Performed by [employer] Mediated Amplification Results obtained from this source are no t FDA approved. CLIA Number [id number] Urine N. gonnorrhoeae STD Negative Negative PN S OFT Comment: Test Performed by [employer] Mediated Amplification Results obtained from this source are no t FDA approved. Performed at [facility], [address] [place] [address] CLIA Number [id number] Specimen Anatomical Collection Method Collection Time Receive d Time (Source) Location / / Volume Laterality 05/20/2018 11:05 05/20/2018 4:01 AM CDT PM CDT Tara Lopez APRN, CNP LAB_1 Performing Organization Address [facility] [place] Phon e Number PN SOFT [address] [place] [address] (ABNORMAL) Hgb A1c (05/20/2018 10:58 AM CDT) athologist Signature HGB A1C 9.5 (H) 4.0 - 5.6 % PN SOFT Specimen Anatomical Collection Method Collection Time Receive d Time (Source) Location / / Volume Laterality 05/20/2018 10:58 05/20/2018 6:43 AM CDT PM CDT Narrative PN SOFT - 05/20/2018 8:09 PM CDT Performed at [facility] [address] [place] [address] CLIA number [id number] Tara Lopez APRN, CNP LAB_1 Performing Organization Address [facility] [place] Phon e Number PN SOFT [address] [place] [address] HIV 1/2 Ag/Ab 4th Generation (05/20/2018 10:58 AM CDT) [facility] gist Method Time Signature HIV-1 p24 Ag Nonreactive Nonreactive PN SOFT and HIV-1/HIV-2 Ab Specimen Anatomical Collection Method Collection Time Receive d Time (Source) Location / / Volume Laterality 05/20/2018 10:58 05/20/2018 4:17 AM CDT PM CDT Narrative PN SOFT - 05/20/2018 4:58 PM CDT Performed at [facility] [address] [place] [address] CLIA number [id number] Tara Lopez APRN, CNP LAB_1 Performing Organization Address [facility] [place] Phon e Number PN SOFT [address] [place] [address] [phone] (ABNORMAL) Basic Metabolic Panel (05/20/2018 10:58 AM CDT) athologist Signature Creatinine 0.60 0.55 - PN SOFT Serum 1.02 mg/dL Lab Glucose 278 (H) 70 - 100 PN SOFT mg/dL Comment: The stated glucose range is for the fast ing state. Non-fasting glucose range is 70-180 mg/d L CO2 27 22 - 31 mmol/L PN SOFT Chloride 104 98 - 109 mmol/L PN SOFT Potassium 4.5 3.5 - 5.2 mmol/L PN SOFT Sodium 138 136 - 145 mmol/L PN SOFT Blood Urea Nitrogen <10 9 - 26 mg/dL PN SOFT Calcium 9.7 8.4 - 10.4 mg/dL PN SOFT Est GFR Am >60 >60 mL/min/1.73m2 PN SOFT Est GFR Non-Afr Am >60 >60 mL/min/1.73m2 PN SOFT Comment: Normal>60, moderate decrease 30 - 59, se yvette decrease 15 - 29, renal failure <15 mL/min/1.73 m2 NOTE: ??Choose the eGFR result above addi ropriate for the race of the patient. Specimen Anatomical Collection Method Collection Time Receive d Time (Source) Location / / Volume Laterality 05/20/2018 10:58 05/20/2018 AM CDT 12:43 PM CDT Narrative PN SOFT - 05/20/2018 2:40 PM CDT Performed at [facility], [address] [place] [address] CLIA number [id number] Tara Lopez APRN, CNP LAB_1 Performing Organization Address [facility] [place] Phon e Number PN SOFT [address] [place] [address] Lipid Panel and Direct LDL(If Needed) (05/20/2018 10:58 AM CDT) Patholo gist Method Time Signature Cholesterol 163 0 - 199 PN SOFT mg/dL Triglycerides 75 4 - 149 PN SOFT mg/dL HDL Cholesterol 42 >39 mg/dL PN SOFT Cholesterol/HDL 3.9 PN SOFT Ratio Screen LDL Calculated 106 19 - 110 PN SOFT mg/dL Non HDL Chol, Calc 121 0 - 144 PN SOFT mg/dL Length Of Fast Unknown PN SOFT Specimen Anatomical Collection Method Collection Time Receive d Time (Source) Location / / Volume Laterality 05/20/2018 10:58 05/20/2018 AM CDT 12:43 PM CDT Narrative PN SOFT - 05/20/2018 2:40 PM CDT Performed at [facility], [address] [place] [address] CLIA number [id number] Tara Lopez APRN, CNP LAB_1 Performing Organization Address City/[facility] Code Phon e Number SOFT [address] [place] [address] Hemoglobin, Blood (05/20/2018 10:57 AM CDT) P athologist Signature Hemoglobin 13.8 11.8 - 15.5 PN SOFT g/dL Specimen Anatomical Collection Method Collection Time Receive d Time (Source) Location / / Volume Laterality 05/20/2018 10:57 05/20/2018 AM CDT 10:57 AM CDT Narrative PN SOFT - 05/20/2018 11:06 AM CDT Performed at [facility], [facility] [address] [place] [address] CLIA number [id number] Tara Lopez APRN, CNP LAB_1 Performing Organization Address City/[facility] [place] Phon e Number SOFT [address] [place] [address] documented in this encounter Visit Diagnoses Diagnosis Type 1 diabetes mellitus without complic ation (HRC) Type I (juvenile type) diabetes mellitus without mention of complication, not stated as uncontrolled Screening, anemia, deficiency, iron Screening for iron deficiency anemia Screening for HIV (human immunodeficienc y virus) Special screening examination for other specified viral diseases Routine screening for STI (sexually hendrickson smitted infection) Screening examination for venereal disea se documented in this encounter Care Teams Marine Mechanic Relationship Specialty Start Date End Date Palmira Lim MD PCP - General 05/08/[address] [place] [address] documented as of this encounter
--- OUTSIDE RECORDS SUMMARY | 2021-12-08 10:28 | XMS_ITS | Encounter Summary ---
:2000 Author Organization [employer] Address [address] [place] [address] Care Team Providers Name Role Phone Palmira Lim MD Primary Care Provider Reason for Visit Reason Comments PE,C&TC 10 year pe Encounter Details Date Type Department Care Team Description 10/28/2010 Office Visit [facility] Palmira Lim Routine or child heal th check (Primary Dx); [address] Eliezer MD Need for prophylactic vaccination and in oculation against influenza; [place] [address] Need vaccination-viral disease; [phone] [place], [place] Need for DTP vaccine; [address] Need for prophylactic vaccination and in oculation against varicella; [phone] Attention defic it disorder with hyperactivity (Work) Social History Tobacco Use Types Packs/Day [...] Sign Reading Time Taken Comments Blood Pressure 90/50 10/28/2010 9:11 AM CDT Pulse 88 10/28/2010 9:11 AM CDT Temperature 36.3 ??C (97.4 ??F) 10/28/2010 9:11 AM CDT Respiratory Rate 20 10/28/2010 9:11 AM CDT Oxygen Saturation - - Inhaled Oxygen Concentration - - Weight 38.2 kg (84 lb 3.2 oz) 10/28/2010 9:11 AM CDT Height 145.2 cm (4' 9.17) 10/28/2010 9:11 AM CDT Body Mass Index 18.12 10/28/2010 9:11 AM CDT Body Mass Index Percentile 58.63 % 10/28/2010 9:11 AM CD T Growth Chart: [facility] (Girls, 2-20 Years) documented in this encounter Patient Instructions Patient InstructionsKorina Archer LPN - 10/28/2010 9:14 AM CDT It has been a pleasure taking care of your child today. A dentist appointment each year is important for your child's health. Your child's insurance may payfor this. If you don't know where to take your child to see the dentist, check your child's insurance card or call [phone] for help. Immunizations (shots) help protect your child from serious illnesses. Nabila will need these immunizations before starting seventh grade: Tdap and Menactra and should receive flu vaccine every fall. Please schedule an appointment on the nurses??? schedule for the flu vaccine. Female patients should also receive a HPV vaccine.7-11 Years: A Parent???s Guide Your developing child Social development Your child is now in the school years, or as some parents call them: ???the campo years of childhood.?? As children grow and learn, they require less help and supervision from parents. Friends becomemore and more important, but the overwhelming peer pressure of adolescence is not yet evident. School is the center of much of your child???s life, and teachers can be very influential. Skills such as reading and physical coordination improve rapidly, opening up a new world of independence for your child. School-related problems (learning problems, behavior difficulties) may surface during these early school years. Get help if you feel that you need it. The school psychologist, your child???s teacher, scheduling specialist, counselors and your health care provider, are all important sources of help. A parent advocate group called [employer] can also be a great help with school problems. Call [phone]. Sexuality As children approach age 11, they may be showing some signs of puberty. Girls frequently have early breast development, and some have started their menstrual periods by age 10 or 11. Boys typically show changes a year or two later, but some may already have pubic hair or voice changes. Be respectful of your child???s need for privacy at this age. Expect some moodiness as the stormy adolescent years approach. Be open and honest with your child about issues related to their bodyand sexuality. Activity Many children have their first experience with organized sports at this age. T- ball teams, soccer teams, basketball teams, etc., are sponsored by most [employer] and schools. Coaches are usually community volunteers with children the same age as yours. If your child is interested in team sports, try to find a tennis coach who emphasizes learning the sport and having fun rather than just winning. Consider being a tennis coach yourself if you have the time. A child of any skill level can have fun on a team if the emphasis is on building skills and developing self-esteem. Avoid criticizing your child???s performance. Praise the good things and try to ignore the mistakes. Avoid overscheduling your child. Too many games, practices, lessons and performances leaves no free time to just ???goof off.?? Goof-off time is a valuable creative, imaginative time for children. Watching television can get to be a habit at this age. Try to set a good example by limiting your own TV viewing. Encourage physical activity, reading and hobbies. Video games can also be consuming, but in limited amounts are not bad. Make sure youget your child a library card and make frequent trips to the library as a family. Consider music lessons, scouting and other activities to divert your child from the TV screen. Parenting In spite of their new-found independence, school-aged children still depend on their parents in subtle ways. They continually test their ideas in the family setting, and look to their parents for guidance and support. Gently encourage your children to make some decisions on their own and to discuss their feelings when things don???t go well. Children at this age have a strong sense of right and wrong. They are outraged at unfairness or injustice. Questions will come up frequently about confusing social issues, such as war, poverty, crime, etc. These questions offer a great opportunity for open communication between parent and child. Remember to listen to your child as well as talk to him or her. Try not to preach -- share ideas and discuss problems. Nutrition for your child Eating Growth is slow throughout the years before puberty. Children are usually active enough to have good appetites, but some are still picky eaters. If your child is very picky, try to avoid sugary snacks which spoil the appetite. Snacking is important for growing bodies, so try to have nutritious snacks handy. Fresh fruit, nuts, yogurt, cheese and crackers, peanut butter, and even ice cream are preferable to candy bars, soda pop, Shan-aid?? and chips. At meal times, offer a well-balanced menu including low-fat milk, lean meats, vegetables or fruit and a grain product such as pasta, rice or bread. Try to avoid packing high-fat lunches with chips and sweets every day. Substitute pretzels, popcorn, dry ce reals and fruits often. Encourage your child to eat breakfast every day. Children who go to school with an empty stomach may have difficulty concentrating, and frequently experience headaches and chronic stomach aches. Your child???s health Dental health Children should be in the habit of brushing and flossing their teeth regularly, but still may need occasional reminders. Tobacco and its harmful effects Children may become aware of smoking early in life when they see their parents and others smoking. This may prompt them to imitate smoking. It may also set the stage for them to become smokers when they are older. As a parent, you can play an important role in helping your kids say ???no?? to tobacco: ?? Don???t allow smoking in your home. ?? Don???t smoke. If you do, don???t smoke in front of children. ?? Make it clear that you don???t approve of smoking. ?? Don???t let your children see or handle your smoking materials. ?? Warn your children about the dangers of smoking. Child safety checklist Safety in the car Insist that your child wear a seat belt every time he rides in a car. Remember to set a good exampleby wearing your own. If your child cannot sit with his legs bent over the edge of the seat without slouching, he still needs to sit in a booster seat in order for the seat belts to fit and protect correctly. Do not allow children to place shoulder straps behind their back or under their arm. The safest place for your child is in the back seat of a vehicle. It is especially important for children under age 13 to sit in the back seat of cars with passenger-side airbags. The force of an expanding airbag can kill a young child. Safety at home Keep matches and lighters out of childrens??? reach. Make sure you have working smoke detectors in your home. Check the batteries monthly and replace them twice a year. Practice a fire-escape plan with your family. If you have guns in your home, store them unloaded and locked. ?? 2003- [facility] -11/06.04/201004 documented in this encounter Progress Notes Palmira Lim MD - 10/28/2010 9:34 AM CDT 10 yr old female presents for follow up of ADHD. The patient currently takes Adderall XR, 10 mg daily on school days with booster dose and frequently on non- school days. Compliance with taking the medication is excellent. Adverse side effects noted:no appetite suppression, no weight loss, no insomnia, no headache, no tics, no mood swings, no cardiac symptoms The parent report that performance and behavior are improved. Patient reports: improved School: will be starting new school in [place] ( [employer]) private middle school Grade: starting 6th School status: Behavior stable. Academic stable. Services may need language tutor. Teacher comments:did better on meds last year per teacher Concerns/related information: family circ; chaos and adhd Coexisting conditions: None Psychosocial/Emotional status: stable OBJECTIVE BP 90/50 Pulse 88 Temp(Src) 97.4 ??F (36.3 ??C) (Oral) Resp 20 Ht 4' 9.17 (1.452 m) Wt 84 lb 3.2 oz (38.193 kg) BMI 18.12 kg/m2 Wt Readings from Last 3 Encounters: 10/28/10 84 lb 3.2 oz (38.193 kg) (51.56%) 10/14/10 82 lb 8 oz (37.422 kg) (48.43%) 03/28/10 70 lb (31.752 kg) (29.01%) Ht Readings from Last 2 Encounters: 10/28/10 4' 9.17 (1.452 m) (50.86%) 10/14/10 4' 9.25 (1.454 m) (53.41%) BP Readings from Last 3 Encounters: 10/28/10 90/50 10/14/10 112/63 03/28/10 114/61 General: Patient is alert, cooperative and in NAD. No mood disturbance, anxiety or oppositional features observed. No tics observed. Exam:see rhm ASSESSMENT ADHD: stable PLAN 1. increase current medication regimen and try to get off afternoon boost dose. Discussed potential side effects, risks and benefits of medication prescribed. Patient/parent agrees with plan. 2. School based supports, accommodations, and interventions per IEP or 504 Plan if indicated. 3. Behavioral health recommended: Yes; may need in new school 4. Next follow up visit in 1-2 months with new and new school. No refill 10 minutes extraused for this visit. Palmira Lim MD Palmira Lim MD - 10/28/2010 9:14 AM CDT Subjective Nabila Serna is a 10 yr female who presents accompanied by her mother for routine child care attendant. Parental/Patient Concerns absent SCHOOL Name: [employer] will start new school in [place] Grade: 6 Success: satisfactory on meds Sports/Recreational Activities Sports: baseball/softball, basketball and soccer Exercise: adequate Extracurricular Activities: music lessons/instrument cello Recreation/Hobbies/TV: reads daily Cardiovascular Risk none I have reviewed and updated the family, past and surgical history. Daily Activities Nutrition: well balanced and varied diet, adequate milk intake Sleep: adequate sleep Dental Care: last dental visit within 6 months brushes daily Developmental Assessment Family/Relationships/Community Current Living Situation: lives with parent and 4 sibs: moving to [place] with step Dad and mom Family: no problems identified, sibling conflict to some degree Peer: sociable Abuse: absent Mental Health Issues: family hx depression and bipolar Active Support/Resources: Family/Friends, [facility] Environmental Risks Tuberculosis Screening: Not indicated Menstrual History not applicable Review of Systems Detailed review of systems including constitutional, skin, eyes, ENT, resp, CVS, GI & , revealed no abnormality except as detailed above. Objective BP 90/50 Pulse 88 Temp(Src) 97.4 ??F (36.3 ??C) (Oral) Resp 20 Ht 4' 9.17 (1.452 m) Wt 84lb 3.2 oz (38.193 kg) BMI 18.12 kg/m2 Estimated Body mass index is 18.12 kg/(m^2) as calculated from the following: Height as of this encounter: 4' 9.165(1.452 m). Weight as of this encounter: 84 lb 3.2 oz(38.193 kg). Normal Abnormal GENERAL X HEENT Head X Eyes/Nose X Ears X Mouth/Pharynx X NECK X LYMPHATICS X LUNGS X CV X ABDOMEN X X MS X NEURO X SKIN X Vision Objective exam completed. Visual Acuity Screening performed and documented in nurse's note. Hearing Objective exam completed. No problems found. Audiogram passed. [employer] Staging BREASTS 4: areola and papilla form second mound above rest of breast PUBIC HAIR 4: adult-type hair, covers less area than adults, no spread to medial surface of Assessment Healthy child ADHD and family stress: see addendum note.cleared for camp, school, sports and all activities Plan Per orders and patient instructions. Counseling Immunizations: Discussed risks, benefits and side effects of immunizations given today. Social: increased responsibility Parenting: increased autonomy in decision making Nutrition: age specific nutritional needs Play and communication: organized sports/regular exercise and appropriate use of TV/video games (total Screen Time) Health: adequate rest at night Dental: Reinforced need for regular brushing and flossing. Emphasized need for annual dental exam by a licensed dentist. Safety: seat belts Follow-up Next preventive health care visit due at next even-numbered age birthday documented in this encounter Plan of Treatment Not on filedocumented as of this encounter Visit Diagnoses Diagnosis Routine infant or child health check - P rimary Need for prophylactic vaccination and in oculation against influenza Need for prophylactic vaccination and in oculation against other viral diseases(V04.89) Need for prophylactic vaccination and in oculation against other viral diseases Need for DTP vaccine Need for prophylactic vaccination with c ombined ungudhblzk-konvfzr-ovffqinbo (DTP) vaccine Need for prophylactic vaccination and in oculation against varicella Attention deficit disorder with hyperact ivity(314.01) ([facility]) Attention deficit disorder with hyperact ivity documented in this encounter Care Teams Project Geophysicist Relationship Specialty Start Date End Date Palmira Lim MD PCP - General 05/08/06 [address] [place] [address] documented as of this encounter
--- OUTSIDE RECORDS SUMMARY | 2021-12-08 10:28 | XMS_ITS | Encounter Summary ---
:2000 Author Organization [employer] Address [address] [place] [address] Care Team Providers Name Role Phone Palmira Lim MD Primary Care Provider Encounter Details Date Type Department Care Team Description 07/14/2018 Lab Visit [facility] Uncontrolled type I diabetes mellitus without complication ([facility]); [id number] [facility] Thyroid enlargement [place], [place] [id number] Social History Tobacco Use Types Packs/Day Years [...] Associated Diagnosis Comme nts TSH, SENSITIVE Routine 07/14/2018 2:43 PM Uncontrolled type I Results for this CDT diabetes mellitus procedure are in without complication the res ults ([facility]) section. Thyroid enlargement documented in this encounter Results (ABNORMAL) TSH (07/14/2018 2:43 PM CDT) Analysis Performed At Patho logist Time Signature TSH, Sensitive 5.05 (H) 0.30 - 07/14/2018 [facility] 4.50 7:31 PM CDT [facility]ORATORY uIU/mL Specimen Anatomical Collection Method / Collection Time Recei andrade Time (Source) Location / Volume Laterality Blood Venipuncture / 07/14/2018 2:43 07/14/2018 2:43 Unknown PM CDT PM CDT [facility] Performing Organization Address City/State/ZIP Code Phon e Number [facility] [address] [place] [address] documented in this encounter Visit Diagnoses Diagnosis Uncontrolled type I diabetes mellitus wi thout complication Thyroid enlargement ([facility]) Goiter, unspecified documented in this encounter Care Teams [employer] Director Relationship Specialty Start Date End Date Palmira Lim MD PCP - General 05/08/06 [address] [address] documented as of this encounter
--- OUTSIDE RECORDS SUMMARY | 2021-12-08 10:28 | XMS_ITS | Encounter Summary ---
:2000 Author Organization [employer] Address [address] [place] [address] Care Team Providers Name Role Phone Palmira Lim MD Primary Care Provider Reason for Visit Reason Onset Date Comments Forms 11/12/2010 Encounter Details Date Type Department Care Team Description 11/12/2010 Telephone [facility] Palmira Lim MD Forms [address] [place] [address] [place] [address] [phone] (Wo rk) Social History Tobacco Use Types Packs/Day Years Used Date Smoking Tobacco: Passive Smoke Exposure - Never Smoker Smokeless Tobacco: Never Comments: mom smokes Alcohol Use Standard Drinks/Week Comments Not Asked 0 (1 standard drink = 0.6 oz pure alcoho l) Sex Assigned at Date Recorded Female 09/14/2020 7:23 AM CDT documented as of this encounter Nursing Notes Korina Archer LPN - 11/12/2010 9:48 AM CDT Form went to Dr. Valladares to sign mom aware will fax when completed Opal Archer LPN Konrad, Kat A - 11/12/2010 7:51 AM CDT Mom states pt cannot start school until form is completed that was put out to you on 11-07-10.Can this be expedited ? Phone message for sibling for same thing. documented in this encounter Plan of Treatment Not on filedocumented as of this encounter Visit Diagnoses Not on filedocumented in this encounter Care Teams Yard Engineer Relationship Specialty Start Date End Date Palmira Lim MD PCP - General 05/08/06 [address] [place] [address] documented as of this encounter
--- OUTSIDE RECORDS SUMMARY | 2021-12-08 10:28 | XMS_ITS | Encounter Summary ---
:2000 Author Organization [facility] Address [address] [place] [address] Care Team Providers Name Role Phone Palmira Lim MD Primary Care Provider Reason for Referral Consult/Transfer Care (Routine) - Closed Specialty Diagnoses / Procedures Referred By Contact Refer red To Contact Diagnoses Uncontrolled type I diabetes mellitus without complication Thyroid enlargement (HRC) Lilian Maldonado MBBS [address] [place], [place] [address] Referral ID Status Reason Start Date Expiration Date Visits Requ ested Visits Authorized [id number] Closed 07/14/2018 10/13/2019 1 1 Scheduling Instructions Your provider has recommended an appoint ment with [facility]. You may call [phone] to schedule [facility] appointment. If you do not schedule an appointment within the next 1 to 3 busin ess days, we will call you to help arrange your appointment. We suggest you call [facility] health insurance company about your coverage and benefits for this appointme nt. Consult/Transfer Care (Routine) - Closed Specialty Diagnoses / Procedures Referred By Contact Refer red To Contact Diagnoses Uncontrolled type I diabetes mellitus without complication Thyroid enlargement (HRC) Lilian Maldonado MBBS [address] [place], [place] [address] Referral ID Status Reason Start Date Expiration Date Visits Requ ested Visits Authorized [id number] Closed 07/14/2018 10/13/2019 1 1 Scheduling Instructions Your provider has recommended an appoint ment with [facility]. You may call [phone] to schedule your appoi ntment. If you do not schedule an appointment within the next 1 to 3 business days, we will call you. Reason for Visit Reason Comments Diabetes Consult/Transfer Care (Routine) - Closed Specialty Diagnoses / Procedures Referred By Contact Refer red To Contact Diagnoses Type 1 diabetes mellitus without complication (HRC) Tara Lopez, SANDOVAL, SMUTTER [address] [place] [address] Referral ID Status Reason Start Date Expiration Date Visits Requ ested Visits Authorized [id number] Closed 05/11/2018 08/10/2019 1 1 Encounter Details Date Type Department Care Team Description 07/14/2018 Initial Consult Lilian Jamil type I diabetes mellitus without complication (HRC) (Primary Dx); Endocrinology KAIN Fenton Thyroid enlargement [address] [place] [address] [facility] [phone] [place] [address] Social History Tobacco Use Types [...] Sign Reading Time Taken Comments Blood Pressure 112/60 07/14/2018 1:54 PM CDT Pulse 80 07/14/2018 1:54 PM CDT Temperature - - Respiratory Rate - - Oxygen Saturation - - Inhaled Oxygen Concentration - - Weight 71.7 kg (158 lb 1.6 oz) 07/14/2018 1:54 PM CDT Height - - Body Mass Index 27.14 05/20/2018 10:15 AM CDT Body Mass Index Percentile 88.65 % 07/14/2018 1:54 PM CD T Growth Chart: [facility] (Girls, 2-20 Years) documented in this encounter Progress Notes Baetriz Friedman LPN - 07/14/2018 1:30 PM CDT Images from the original note were not included. Lilian Maldonado MBBS - 07/14/2018 1:30 PM CDT [facility] Department of Endocrinology, Diabetes and Metabolism Clinic Note Name: Nabila Serna Cc: Establish care for T1DM, she used to see pediatric endocrinology at [facility]. 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 #1 T1DM: Diagnosed in 2015, no known complications, he has history of non compliance, had a DKA in 03/2018. She is currently using insulin Tresiba 30 units QHS and insulin Novolog 1 unit per 8 gm CHO with correction (using 1 per 40 above 120), she admits that she is not counting carbs correctly and not bolusing every time she is eating. She checks her FSBG 3-4 times daily, she used to use DEXCOM but did not have a transmitter. Average glucose was 222, range 56-497, A1C 9.7% today. No history of hypoglycemia unawareness. No peripheral neuropathy symptoms, She does not have a recent eye exam. Creatinine from 04/2018 was normal and had normal urine microalbumin, BP today was 112/60. ROS: A 10 point ROS was done, and is negative unless specified otherwise in the HPI. Medications: medication list was reviewed and updated on the EMR. PMHx: Past Medical History: Diagnosis Date ??? Type 1 diabetes mellitus without complication (HRC) 05/11/2018 Dx 2016 FHx: No family history on file. SHx: Social History Tobacco Use ??? Smoking status: Current Every Day Smoker Packs/day: 0.25 Years: 1.00 Pack years: 0.25 Types: Cigarettes ??? Smokeless tobacco: Never Used Substance Use Topics ??? Alcohol use: Yes Comment: on ocass ??? Drug use: Not on file Physical Examination: Vitals: BP 112/60 (BP Location: Left Arm, BP Cuff Size: Adult Large) Pulse 80 Wt 158 lb 1.6 oz (71.7 kg) BMI 27.14 kg/m?? General: The patient is alert and oriented, no acute distress. Eyes: EOMI, pupils are equal. ENT: Mucous membranes are moist. Neck: Supple, no palpable lymph nodes. Thyroid: No exophthalmos, no lid lag or retraction. Thyroid gland is prominent. Chest: Clear to auscultation bilaterally. Normal S1 and S2, no murmurs. Neurologic exam: Power is symmetrical 5/5 in upper and lower extremities. Reflexes are normal and symmetrical bilaterally. Upper extremities: Hands are dry, no clubbing or cyanosis. Labs: Reviewed and summarized in the HPI. Assessment and Plan: Nabila Serna is a 17 y.o. female: #1 T1DM: Uncontrolled, no triopathy, A1C 9.7%. Counseled the patient about the importance of DM control and grave consequences of uncontrolled DM. She needs extensive education, I will refer her to the [facility] for further teaching. Continue Tresiba 30 units QHS. Continue Novolog 1 per 8, using 1 per 40 above 120 for correction, she needs to do that before each meal. Use DEXCOM. Arrange for an eye exam. RTC in 3 months with [facility]. #2 Thyroid prominence: Check TSH today. KAIN Bruce Plastic Top Assembler documented in this encounter Plan of Treatment Scheduled Referrals Name Type Priority Associated Diagnoses Order S chedule Ophthalmology Referral Routine Uncontrolled type I Ordered : 07/14/2018 Consult-Adult/Peds diabetes mellitus without complication (HRC) Thyroid enlargement Diabetes Education Visit Referral Routine Uncontrolled typ e I Ordered: 07/14/2018 diabetes mellitus without complication (HRC) Thyroid enlargement documented as of this encounter Procedures Procedure Name Priority Date/Time Associated Diagnosis Comme nts POCT GLYCOSYLATED Routine 07/14/2018 2:47 PM Uncontrolled type I Results for this HEMOGLOBIN (HGB A1C) CDT diabetes mellitus pr ocedure are in without complication the res ults (HRC) section. documented in this encounter Results (ABNORMAL) POCT glycosylated hemoglobin (Hb A1C) (07/14/2018 2:47 PM CDT) athologist Signature Hemoglobin A1C 9.7 (A) 5.6 % POCT (Rapid) Cartridge Lot# [id number] POCT Specimen (Source) Anatomical Collection Method Collection Time Re ceived Time Location / / Volume Laterality Blood 07/14/2018 2:47 PM CDT Lilian FINNEGAN ET POINT OF CARE TEST ENTER/ EDIT ORDERABLES Performing Organization Address City/State/ZIP Code Phon e Number POCT (ABNORMAL) TSH (07/14/2018 2:43 PM CDT) Analysis Performed At [facility] logist Time Signature TSH, Sensitive 5.05 (H) 0.30 - 07/14/2018 [facility] 4.50 7:31 PM CDT LABORATORY uIU/mL Specimen Anatomical Collection Method / Collection Time Recei andrade Time (Source) Location / Volume Laterality Blood Venipuncture / 07/14/2018 2:43 07/14/2018 2:43 Unknown PM CDT PM CDT Lilian FINNEGAN LAB_1 Performing Organization Address City/State/ZIP Code Phon e Number [facility] [address] [place] [address] documented in this encounter Visit Diagnoses Diagnosis Uncontrolled type I diabetes mellitus wi thout complication - Primary Thyroid enlargement (HRC) Goiter, unspecified documented in this encounter Care Teams Derrick Worker Well Service Relationship Specialty Start Date End Date Palmira Lim MD PCP - General 05/08/[address] [place] [address] documented as of this encounter
--- OUTSIDE RECORDS SUMMARY | 2021-12-08 10:28 | XMS_ITS | Encounter Summary ---
:2000 Author Organization [facility] [employer] [facility] Address [address] [place] [address] Care Team Providers Name Role Phone Palmira Lim MD Primary Care Provider Reason for Referral Consult/Transfer Care (Routine) - Closed Specialty Diagnoses / Procedures Referred By Contact Refer red To Contact Diagnoses Type 1 diabetes mellitus without complication (HRC) Tara Lopez APRN, CNP [address] [place] [address] Referral ID Status Reason Start Date Expiration Date Visits Requ ested Visits Authorized [id number] Closed 05/11/2018 08/10/2019 1 1 Scheduling Instructions Your provider has recommended an appoint ment with [facility]. You may call [phone] to schedule your a ppointment. If you do not schedule an appointment within the next 1 to 3 busin days, we will call you to help arrange your appointment. We suggest you call [employer] about your coverage and benefits for this appointme nt. Reason for Visit Reason Comments Nexplanon Removal Encounter Details Date Type Department Care Team Description 05/11/2018 Office Visit Tara Carrera Breakkristen hrough bleeding on Nexplanon (Primary Dx); Saundra Chacon APRN, CNP Herpes simplex vulvovaginitis; [address] [address] Ginger Gilbert Type 1 diabetes mellitus without complic ation (HRC); [place] [address] [place], [place] Surveillance of previously p rescribed implantable subdermal contraceptive [phone] [id number] Social History Tobacco Use Types Packs/Day Years Used Date Smoking Tobacco: Every Day Cigarettes 0.3 1 Smokeless Tobacco: Never Alcohol Use Standard Drinks/Week Comments No 0 (1 standard drink = 0.6 oz pure alcoho l) Sex Assigned at Date Recorded Female 09/14/2020 7:23 AM CDT documented as of this encounter Last Filed Vital Signs Vital Sign Reading Time Taken Comments Blood Pressure 120/78 05/11/2018 2:47 PM CDT Pulse 72 05/11/2018 2:47 PM CDT Temperature - - Respiratory Rate - - Oxygen Saturation - - Inhaled Oxygen Concentration - - Weight 71.7 kg (158 lb) 05/11/2018 2:47 PM CDT Height - - Body Mass Index - - documented in this encounter Progress Notes Tara Lopez APRN, MITZI - 05/11/2018 1:40 PM CDT Nabila Serna [id number] 2000 SUBJECTIVE: NABILA SERNA is a 17 y.o. female who presents to the clinic for removal of Nexplanon and to establish care. Patient states that she had the Nexplanon placed about a year ago at an outside clinic.She has experienced frequent prolonged bleeding since then and does not like the unpredictability ofit. She sometimes will bleed lightly for three weeks straight, have two days of no bleeding, and then recurrence of bleeding. She and her long-term boyfriend recently decided to not have sex, so she would like it removed given the fact that she is not needing it for contraception at this time. She is and has previously been on Depo Provera. She had light and prolonged bleeding on that as well. Patient denies personal history of blood clots/DVT. Denies known family history of clotting disorders. Patient has DM 1, diagnosed in 2016. Her previous Chief Accountant is no longer in her insurance network. Patient states that she has recently been keeping her sugars under good control. She experiencedan episode of DKA in March 2018, which hospitalized her for 5-6 days (in [place]). She has beenscared of having this happen again, so it trying to stay on top of things. 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 She has not had any recurrences. She got it from her current boyfriend. She does not currently have a prescription for acyclovir to use as needed. PAST MEDICAL AND SURGICAL HISTORY REVIEWED IN [facility] FAMILY AND SOCIAL HISTORY REVIEWED IN [facility] MEDICATIONS: Outpatient Medications Prior to Visit Medication Sig ??? [DISCONTINUED] amphetamine-dextroamphetamine (ADDERALL XR) 10 MG 24 hour release capsule Take 1 Cap by mouth every morning. To be filled on/after 11/06/10 (Patient not taking: Reported on 05/11/2018) ??? [DISCONTINUED] amphetamine-dextroamphetamine (AKA ADDERALL) 10 MG tablet Take 0.5 Tabs by mouth.every afternoon. (Patient not taking: Reported on 05/11/2018) ??? [DISCONTINUED] amphetamine-dextroamphetamine (AKA ADDERALL) 10 MG tablet Take 0.5 Tabs by mouth.every afternoon. To be filled on/after 11/06/10 (Patient not taking: Reported on 05/11/2018) ??? [DISCONTINUED] medroxyPROGESTERone (DEPO-PROVERA) 150 MG/ML injection Inject 150 mg intramuscularly every 3 months. No facility-administered medications prior to visit. ALLERGIES: Patient has no known allergies. ROS as described above. Other pertinent positives include: as above OBJECTIVE BP 120/78 (BP Location: Left Arm, BP Cuff Size: Adult Regular) Pulse 72 Wt 158 lb (71.7 kg) GENERAL: This is a well-developed, well-nourished female in no acute distress. HEENT: Head AT/NC. NECK: Supple, thyroid without enlargement or nodules. No lymphadenopathy. LUNGS: Symmetrical expansion, CTA in all sunshine bilaterally. HEART: Regular rate and rhythm. No murmurs. PSYCH: Well-oriented. Appropriate mood and affect. NEURO: Speech and gait are normal. Procedure: Risks/benefits of Nexplanon removal reviewed, including risks of bleeding, bruising and injury to arm. I also discussed that her current bleeding pattern is common with Nexplanon and since bleeding is light, it's not likely cause for any concern. Despite this reassurance, patient still opted for removal. Consent obtained. The left arm was placed flat and the implant palpated. The area was cleansed with betadine and injected with 1% lidocaine without epinephrine. A small 2mm incision was made with the scalpel. The tissue was bluntly dissected away until the capsule was grasped. The capsule was removed without complication. Steri strip was placed on incision and bandage applied. Wound care instructions given. No complications. Patient was advised to immediately use back-up method of control to prevent . ASSESSMENT/PLAN: Breakthrough bleeding on Nexplanon - Nexplanon removed after thorough consultation regarding normalcy of irregular bleeding and other contraception options. - Patient is not interested in starting another contraceptive as she is not currently sexually active. She promised to come back if they decide to become sexually active again. I advised condoms as abare minimum to prevent . Herpes simplex vulvovaginitis (HRC) Other orders - For outbreaks, prescribed acyclovir (ZOVIRAX) 400 MG tablet; Take 1 Tablet by mouth three times a day for 5 days. Type 1 diabetes mellitus without complication (HRC) - Referred for Endocrinology Consult-Adults - Continue current treatment plan in the interim. Tara Lopez APRN, CNP [facility] NB: A voice recognition dictation system was used for this note. Please excuse any typographical errors. documented in this encounter Plan of Treatment Scheduled Referrals Name Type Priority Associated Diagnoses Order S [facility] Endocrinology Referral Routine Type 1 diabetes Ordered: Consult-Adults mellitus without complication (HRC) documented as of this encounter Visit Diagnoses Diagnosis Breakthrough bleeding on Nexplanon - Sapna daiana Metrorrhagia Herpes simplex vulvovaginitis (HRC) Type 1 diabetes mellitus without complic ation (HRC) Type I (juvenile type) diabetes mellitus without mention of complication, not stated as uncontrolled Surveillance of previously prescribed im plantable subdermal contraceptive documented in this encounter Care Teams Water Resources Business Segment Leader Relationship Specialty Start Date End Date Palmira Lim MD PCP - General 05/08/[address] [place] [address] documented as of this encounter
--- OUTSIDE RECORDS SUMMARY | 2021-12-08 10:28 | XMS_ITS | Encounter Summary ---
:2000 Author Organization [facility] Address [address] [place] [address] Care Team Providers Name Role Phone Palmira Lim MD Primary Care Provider Reason for Visit Reason Comments Diabetes DIABETES EDUCATION Encounter Details Date Type Department Care Team Description 11/17/2018 Office Visit [facility] Typ e 1 diabetes mellitus Diabet without complication [address] [facility] ([facility] [place] [address] Social History Tobacco Use Types [...] documented as of this encounter Progress Notes Keyla Plascencia RN, CDE - 11/17/2018 1:00 PM CDT Addended by: KEYLA PLASCENCIA on: 11/17/2018 05:09 PM Modules accepted: Orders Kay Qureshi, OLMAN, LD, [facility] - 11/17/2018 1:00 PM CDT Subjective: What is the most important concern you want to discuss today? I think my blood sugars are better. They told me to take my insulin 10 minutes before I eat and I've been doing that and that made a difference for me. Did not bring food records for today's visit, but reports that she is eating out less frequently. She quit both of her jobs and is currently unemployed. She lives with her boyfriend, his cousin and his cousin's girlfriend. States, They eat a lot of unhealthy food and they don't eat vegetables. That makes it hard for me. Is patient taking diabetes medications as directed? Yes; States she's taking humalog before all meals and snacks. Does occasionally treat hypoglycemia with extra juice and may not take additional humalog for the extra portion. Is taking a humalog correction before she goes to bed, and per her report, may take some extra humalog I.e. Took 3 units last night to correct a high but needed 1 unit. States,My blood sugar always goes up at night so I think I need some extra insulin. She also admits to occasionally correcting post meal for a high glucose, and may not wait for a full 3-4 hours after her last injection. In reviewing her CGM, she does have some big drops in glucose during the night. Reports that at times, she may take humalog in the middle of the night, but this is infrequent. Food Recall: Yesterday's intake as follows; First meal: ate 2 packages of flavored oatmeal (64 grams carb) plus 2 quesadillas and a large order of wolof fries. Counted the 2 tortillas as 20 grams each, but likely undercounted the fries at 40 grams, as they were close to the size of a fast food order of fries, which is closer to 60 grams, so she didn't take enough humalog for this meal. This was the only meal she ate yesterday, except had a chicken wing late in the evening. States she doesn't typically eat before going to bed. Reports her meal times are not consistent. Reports she has a [employer] phone addi. Alcohol Intake Had alcohol once in the past week: had wine coolers plus 2 pitchers of lemonade/hard liquor mix. States it was not sugar free drink mix. Current physical activity includes going to the gym several times a week for 45 minutes. States she hasn't noticed that her glucose has dropped as a result of activity and hasn't been making adjustments to food or insulin. Objective: Weight: 183.3 lbs. Wt Readings from Last 3 Encounters: 10/20/18 176 lb 4.8 oz (80 kg) (94 %)* 07/14/18 158 lb 1.6 oz (71.7 kg) (88 %)* 05/20/18 154 lb (69.9 kg) (85 %)* * Growth percentiles are based on [facility] (Girls, 2-20 Years) data. Lab results related to diabetes have been reviewed. Assessment and Plan: Provided a lot of support and encouragement at today's visit. It appears that she lacks support and is in a challenging social situation. Encouraged her to measure out juice when treating a low and if taking extra juice beyond 4-6 ounces,cover with HL. Encouraged her to take only prescribed correction at bedtime, >140 and not extra. Discussed strategies for easy ways she can incorporate vegetables, even when others are not eating them or preparing them. Encouraged her to enter carbohydrate grams into her phone for her follow up appt. Positive reinforcement given for great follow through with instruction from last visit. See RN note for additional recommendations. Time spent with patient: 60 minutes Education content taught can be found in the diabetes education smartform Keyla Plascencia RN, CDE - 11/17/2018 1:00 PM CDT Images from the original note were not included. Subjective: What is the most important concern you want to discuss today? I'm rising at night I think. That's why I take my tresiba at night. I think if I take it in the morning it's wearing off by night. How are you feeling about having diabetes? This is a lot of work Objective: There were no vitals taken for this visit. Patient did bring records into the clinic today. Using Dexcom CGM. AGP as follows: Had long discussion about what could be causing highs overnight. Recommended that for next visit sheenter information into her Dexcom about food eaten and insulin taken. Also recommended that if she has an addi where she can take some pictures of her meals that will help in analyzing what is going on. Reviewed what martínez phenomenon is and that for some people NPH insulin needs to be added. Discussed that right now we will try increasing the Tresiba to see if that will help. Continue to work on taking insulin for all food as she has been doing. Make notes if correcting especially at bedtime. Concerns With: Highs overnight Lab results related to diabetes have been reviewed. Assessment and Plan: Increase Tresiba Continue current carb and correction ratios Call with questions or concerns F/u 12/24/18 with education Time spent with patient: 45 Minutes Education content taught can be found in the diabetes education smartform documented in this encounter Plan of Treatment Not on filedocumented as of this encounter Visit Diagnoses Diagnosis Type 1 diabetes mellitus without complic ation (HRC) Type I (juvenile type) diabetes mellitus without mention of complication, not stated as uncontrolled documented in this encounter Care Teams Prime Minister Relationship Specialty Start Date End Date Palmira Lim MD PCP - General 05/08/[address] [place] [address] documented as of this encounter
--- OUTSIDE RECORDS SUMMARY | 2021-12-08 10:28 | XMS_ITS | Encounter Summary ---
:2000 Author Organization [employer] Address [address] [place] [address] Care Team Providers Name Role Phone Palmira Lim MD Primary Care Provider Reason for Referral Consult/Transfer Care (Routine) - Closed Specialty Diagnoses / Procedures Referred By Contact Refer red To Contact Diagnoses Type 1 diabetes mellitus without complication (HRC) Jared Lopez APRN, CNP [address] [place] [address] Referral ID Status Reason Start Date Expiration Date Visits Requ ested Visits Authorized [id number] Closed 05/20/2018 08/19/2019 1 1 Scheduling Instructions Your provider [facility] ment [facility] You may call [phone] to schedule your appoi ntment. If you do not schedule an appointment within the next 1 to 3 business days, we will call you. Reason for Visit Reason Comments Annual Exam Non-fasting Encounter Details Date Type Department Care Team Description 05/20/2018 Office Visit [facility] Jared Lopez w phillip exam (no gynecological exam) (Primary Dx); Saundra Chacon APRN, CNP Type 1 diabetes mellitus without complic ation (HRC); [address] [address] [address] control counseling; Drive [place], [place] Screening, anemia, deficienc y, iron; [place] [address] Screening for HIV (human immunodeficienc y virus); [address] Routine screening for STI (s exually transmitted infection) Social History Tobacco Use Types [...] Sign Reading Time Taken Comments Blood Pressure 118/72 05/20/2018 10:15 AM CDT Pulse 72 05/20/2018 10:15 AM CDT Temperature - - Respiratory Rate - - Oxygen Saturation - - Inhaled Oxygen Concentration - - Weight 69.9 kg (154 lb) 05/20/2018 10:15 AM CDT Height 162.6 cm (5' 4) 05/20/2018 10:15 AM CDT Body Mass Index 26.43 05/20/2018 10:15 AM CDT Body Mass Index Percentile 86.69 % 05/20/2018 10:15 AM C DT Growth Chart: [facility] (Girls, 2-20 Years) documented in this encounter Progress Notes Jared Lopez APRN, CNP - 05/20/2018 10:00 AM CDT Addended by: JARED LOPEZ on: 05/20/2018 02:42 PM Modules accepted: Orders Jared Lopez APRN, CNP - 05/20/2018 10:00 AM CDT Nabila Serna [id number] 2000 SUBJECTIVE: NABILA SERNA is a 17 y.o. female who presents to the clinic for a routine physical exam. She is , with Nexplanon removed 3 d/t unpredictable and prolonged bleeding. Menses before that were regular. She is not currently sexually active as she and her boyfriend decided not to have sex recently. She plans to start on a new control if they decide to resume intercourse. No concerns about STI's at this time. She denies dyspareunia, unusual vaginal discharge, or pelvic pain. Patient has DM 1, awaiting appt with Endocrinology at where she will be transferring her care. Patient is currently taking Tresiba 30U daily and Humalog on a 1U per 8 carb ratio and 1U for every 40 above 140 sliding scale. She states that fasting sugars have consistently been less than 150. She denies hypoglycemia. She had DKA in March and was hospitalized and was scared to let her diabetes get out of control again. She denies neuropathy. She has never had a diabetic eye exam. PAST MEDICAL HISTORY: Past Medical History: Diagnosis Date ??? Type 1 diabetes mellitus without complication (HRC) 05/11/2018 Dx 2016 PAST SURGICAL HISTORY: Past Surgical History: Procedure Laterality Date ??? SURGICAL HX - NEG BREAK UP WORKER HISTORY: OB History 0 Para 0 Term 0 0 AB 0 Living 0 SAB 0 TAB 0 Ectopic 0 Multiple 0 Live Births 0 No LMP recorded. MEDICATIONS: Current Outpatient Medications Medication Sig Dispense Refill ??? Insulin Degludec (TRESIBA) 100 UNIT/ML SOLN 30 Units daily. ??? insulin lispro, human, (HUMALOG, ADMELOG) 100 UNIT/ML injection pen 1U for every 40 over 140 on sliding scale 1 U for every 8g carbs No current facility-administered medications for this visit. ALLERGIES: No Known Allergies FAMILY HISTORY: History reviewed. No pertinent family history. SOCIAL HISTORY: Social History Social History Narrative Works at [employer]. Has long-term BF. HABITS: Tobacco: 1/4 pack per day Alcohol/Drugs: Denies ETOH use. Denies drug use. Exercise: sedentary Diet: Well balanced . HEALTHCARE MAINTENANCE: Last Pap: never Complete ROS negative with any exceptions listed above. OBJECTIVE VITALS: BP 118/72 (BP Location: Left Arm, BP Cuff Size: Adult Regular) Pulse 72 Ht 5' 4 (1.626 m) Wt 154 lb (69.9 kg) BMI 26.43 kg/m?? CONSTITUTIONAL; Well-developed, well nourished female, in NAD. HEENT: Head AT/NC. Wears glasses. External ears normal. TMs clear, bony landmarks visible. Nares patent, turbinates without lesions or drainage. Oropharynx non-erythematous. Uvula midline. Dentition ingood condition. NECK: Supple, thyroid without enlargement or nodules. No cervical lymphadenopathy. LUNGS: Symmetrical expansion, CTA in all sunshine bilaterally. HEART: Regular rate and rhythm. No murmurs. ABDOMEN: Soft, non-tender, no guarding or masses. No HSM. EXTREMITIES: No edema. Strong and equal peripheral pulses SKIN: No obvious rashes or suspicious lesions. PSYCH: Well-oriented. Appropriate mood and affect. NEURO: Speech and gait are normal. DTRs 2+ in the patellar reflex. Normal monofilament bilat. BREASTS: Moderate size, symmetrical. No nipple discharge. No palpable masses, tenderness, lesions, dimpling, or retractions. LYMPH: No axillary lymphadenopathy. GENITALIA: deferred ASSESSMENT/PLAN: Well woman exam (no gynecological exam) - Labs: Hgb, HIV screen due - Pap: Due age 20 - Screening for GC/CT collected - Immunizations: MCV4 administered. Otherwise Up to date. - Follow up yearly. Type 1 diabetes mellitus without complication (HRC) - Microalb/Creat Ratio; Future - Lipid Panel and Direct LDL(If Needed); Future - Basic Metabolic Panel; Future - Optometry Consult-Adult/Peds - Continue current treatment regimen and follow up with Endocrinology as advised. control counseling: Again, stressed the importance of control if she resumes sexual activity. Discussed likelihood of with unprotected intercourse and high risk given her uncontrolled DM 1. Counseling: Discussed the importance of safe sexual practices with use of barrier contraception, regular exercise, eating a healthy, well-balanced diet, and sun protection. Jared Lopez APRN, MITZI [facility] NB: A voice recognition dictation system was used for this note. Please excuse any typographical errors. documented in this encounter Plan of Treatment Scheduled Referrals Name Type Priority Associated Diagnoses Order S chedule Optometry Referral Routine Type 1 diabetes mellitus Ord ered: 05/20/2018 Consult-Adult/Peds without complication (HRC) documented as of this encounter Results Microalb/Creat Ratio (05/20/2018 12:27 [...] - 05/20/2018 4:27 PM CDT Performed at [facility], [address] [place] [address] CLIA number [id number] Jared Lopez APRN, MITZI LAB_1 Performing Organization Address City/[facility] Phon e Number PN SOFT [address] [place] [address] [phone] Chlamydia & GC, Urine (05/20/2018 11:05 AM CDT) athologist Signature Urine Negative Negative PN SOFT Chlamydia STD Comment: Test Performed by Business Reporter Mediated Amplification Results obtained from this source are no t FDA approved. CLIA Number [id number] Urine N. gonnorrhoeae STD Negative Negative PN S OFT Comment: Test Performed by Business Reporter Mediated Amplification Results obtained from this source are no t FDA approved. Performed at [facility], [address] [place] [address] ??[id number] CLIA Number [id number] Specimen Anatomical Collection Method Collection Time Receive d Time (Source) Location / / Volume Laterality 05/20/2018 11:05 05/20/2018 4:01 AM CDT PM CDT Jared Lopez APRN, MITZI LAB_1 Performing Organization Address City/[facility]/ZIP Code Phon e Number PN SOFT [address] [place] [address] [phone] HIV 1/2 Ag/Ab 4th Generation (05/20/2018 10:58 AM CDT) Patholo gist Method Time Signature HIV-1 p24 Ag Nonreactive Nonreactive PN SOFT and HIV-1/HIV-2 Ab Specimen Anatomical Collection Method Collection Time Receive d Time (Source) Location / / Volume Laterality 05/20/2018 10:58 05/20/2018 4:17 AM CDT PM CDT Narrative PN SOFT - 05/20/2018 4:58 PM CDT Performed at [facility], [address] [place] [address] CLIA number [id number] Jared Lopez APRN, WARP CHANGER LAB_1 Performing Organization Address City/State/ZIP Code Phon e Number PN SOFT [address] [place] [address] (ABNORMAL) Basic Metabolic Panel (05/20/2018 10:58 AM CDT) P athologist Signature Creatinine 0.60 0.55 - PN [...] - 05/20/2018 2:40 PM CDT Performed at [facility], [address] [place] [address] CLIA number [id number] Jared Lopez APRN, CNP LAB_1 Performing Organization Address [facility] Phon e Number PN SOFT [address] [place] [address] Lipid Panel and Direct LDL(If Needed) (05/20/2018 10:58 AM CDT) [facility] gist Method Time Signature Cholesterol 163 0 [...] - 05/20/2018 2:40 PM CDT Performed at [facility], [facility] [address] [id number] CLIA number [id number] Jared Lopez APRN, CNP LAB_1 Performing Organization Address [facility] Phon e Number PN SOFT [address] [place] [address] Hemoglobin, Blood (05/20/2018 10:57 AM CDT) athologist Signature Hemoglobin 13.8 11.8 - 15.5 PN SOFT g/dL Specimen Anatomical Collection Method Collection Time Receive d Time (Source) Location / / Volume Laterality 05/20/2018 10:57 05/20/2018 AM CDT 10:57 AM CDT Narrative PN SOFT - 05/20/2018 11:06 AM CDT Performed at [facility], [address] [place] [address] CLIA number [id number] Jared Lopez APRN, MITZI LAB_1 Performing Organization Address City/State/ZIP Code [facility] e Number PN SOFT [address] [place] [address] documented in this encounter Visit Diagnoses Diagnosis Well woman exam (no gynecological exam) - Primary Routine general medical examination at a health care facility Type 1 diabetes mellitus without complic ation (HRC) Type I (juvenile type) diabetes mellitus without mention of complication, not stated as uncontrolled control counseling General counseling for initiation of oth er contraceptive measures Screening, anemia, deficiency, iron Screening for iron deficiency anemia Screening for HIV (human immunodeficienc y virus) Special screening examination for other specified viral diseases Routine screening for STI (sexually hendrickson smitted infection) Screening examination for venereal disea se Type 1 diabetes mellitus without complic ation [...] se documented in this encounter Care Teams Developer Relations Manager Relationship Specialty Start Date End Date Palmira Lim MD PCP - General 05/08/[address] [place] [address] documented as of this encounter
[2021-12-08 10:29] LABS: pH VBG 7.004 (7.32-7.43)
--- OUTSIDE RECORDS SUMMARY | 2021-12-08 10:29 | XMS_ITS | Encounter Summary ---
:2000 Author Organization [employer] Address [address] [place] [address] Care Team Providers Name Role Phone Palmira Lim MD Primary Care Provider Reason for Visit Reason Onset Date Comments SCABIES 01/30/2009 Encounter Details Date Type Department Care Team Description 01/30/2009 Telephone [facility] Palmria Lim MD SCABIES [address] [place] [address] [place], [place] [phone] (Wo rk) Social History Tobacco Use Types Packs/Day Years Used Date Smoking Tobacco: Passive Smoke Exposure - Never Smoker Comments: mom smokes Alcohol Use Standard Drinks/Week Comments Not Asked 0 (1 standard drink = 0.6 oz pure alcoho l) Sex Assigned at Date Recorded Female 09/14/2020 7:23 AM CDT documented as of this encounter Nursing Notes Tamara Caceres - 01/30/2009 3:59 PM CST Whole family with scabies Nabila has rash on wrists and hands, few on stomach. just started getting it 2-3 weeks ago. blister, itchy especially at night. Please treat Tamara Caceres RN 01/30/2009, 3:59 PM MA SPECIALIST documented in this encounter Plan of Treatment Not on filedocumented as of this encounter Visit Diagnoses Diagnosis Scabies - Primary documented in this encounter Care Teams Aggregate Conveyor Operator Relationship Specialty Start Date End Date Palmira Lim MD PCP - General 05/08/06 [address] [address] documented as of this encounter
--- OUTSIDE RECORDS SUMMARY | 2021-12-08 10:29 | XMS_ITS | Encounter Summary ---
:2000 Author Organization [employer] Address [address] [place] [address] Care Team Providers Name Role Phone Palmira Lim MD Primary Care Provider Reason for Visit Reason Onset Date Comments Refill 01/05/2009 Encounter Details Date Type Department Care Team Description 01/05/2009 Refill [facility] Katya Rios MD Refill [address] [address] [address] [place] [address] [place], [place] [phone] (Wo rk) Social History Tobacco Use Types Packs/Day Years Used Date Smoking Tobacco: Passive Smoke Exposure - Never Smoker Comments: mom smokes Alcohol Use Standard Drinks/Week Comments Not Asked 0 (1 standard drink = 0.6 oz pure alcoho l) Sex Assigned at Date Recorded Female 09/14/2020 7:23 AM CDT documented as of this encounter Nursing Notes Margo Ellis, RN - 01/05/2009 3:31 PM CST Mom is in clinic with another child, requesting refill for Nabila. Last seen 11/16/08- needs to schedule a follow-up. Parent informed. Last filled 11/29/08-Request within appropriate time parameters. Prescription prepared for provider's signature. Margo Francis, RN IDE EVENT SALES SPECIALIST documented in this encounter Plan of Treatment Not on filedocumented as of this encounter Visit Diagnoses Not on filedocumented in this encounter Care Teams Electrical Software Engineer Relationship Specialty Start Date End Date Palmira Lim MD PCP - General 05/08/[address] [place] [address] documented as of this encounter
--- OUTSIDE RECORDS SUMMARY | 2021-12-08 10:29 | XMS_ITS | Encounter Summary ---
:2000 Author Organization [employer] Address [address] [place] [address] Care Team Providers Name Role Phone Palmira Lim MD Primary Care Provider Reason for Visit Reason Onset Date Comments Joaquina 05/07/2009 Refill 05/07/2009 Encounter Details Date Type Department Care Team Description 05/07/2009 [facility] [place]; Refill [address] [address] [place] [address] [phone] (Wo rk) Social History Tobacco Use Types Packs/Day Years Used Date Smoking Tobacco: Passive Smoke Exposure - Never Smoker Comments: mom smokes Alcohol Use Standard Drinks/Week Comments Not Asked 0 (1 standard drink = 0.6 oz pure alcoho l) Sex Assigned at Date Recorded Female 09/14/2020 7:23 AM CDT documented as of this encounter Nursing Notes Camilla Jacob RN - 05/07/2009 2:37 PM CSTApproved Prescriptions: Disp Refills amphetamine-dextroamphetamine (ADDERALL XR,30 0Sig: Take one capsule in the morning.Authorizing Provider: KATYA MCCULLOUGH User: CAMILLA JACOB amphetamine-dextroamphetamine (AMPHETAMINE-30 0Sig: Take 1 po qafternoon.Fill after 03/05/09uthorizing Provider: KATYA MCCULLOUGH User: CAMILLA JACOB WHEELER Camilla Jacob RN - 05/07/2009 2:37 PM CST Future appointment scheduled. Requested within appropriate time parameters. Prescription prepared for provider's signature. Will be ready for pick up driver. Camilla Jacob RN WHEELER April Rodriguez - 05/07/2009 11:04 AM CST Pt would like to pick up driver script today at 4pm. Nabila's sister has an appt today with Dr. Mccullough @4 and they would like to pick the script up at that time. WHEELER documented in this encounter Plan of Treatment Not on filedocumented as of this encounter Visit Diagnoses Not on filedocumented in this encounter Care Teams Germination Worker Relationship Specialty Start Date End Date Palmira Lim MD PCP - General 05/08/06 [address] [place] [address] documented as of this encounter
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
--- OUTSIDE RECORDS SUMMARY | 2021-12-08 10:29 | XMS_ITS | Encounter Summary ---
:2000 Author Organization [employer] Address [address] [place] [address] Care Team Providers Name Role Phone Palmira Lim MD Primary Care Provider Encounter Details Date Type Department Care Team Description 10/11/2009 Correspondence [facility] Katya Kunz, LYNETTE SHETH STATEMENT Psychiatry MD OF [address] [address] Social History Tobacco Use Types Packs/Day Years Used Date Smoking Tobacco: Passive Smoke Exposure - Never Smoker Comments: mom smokes Alcohol Use Standard Drinks/Week Comments Not Asked 0 (1 standard drink = 0.6 oz pure alcoho l) Sex Assigned at Date Recorded Female 09/14/2020 7:23 AM CDT documented as of this encounter Progress Notes Katya Kunz - 10/12/2009 9:32 AM CDT documented in this encounter Plan of Treatment Not on filedocumented as of this encounter Visit Diagnoses Not on filedocumented in this encounter Care Teams Manhole Stripper Relationship Specialty Start Date End Date Palmira Lim MD PCP - General 05/08/[address] [place] [address] documented as of this encounter
--- OUTSIDE RECORDS SUMMARY | 2021-12-08 10:29 | XMS_ITS | Encounter Summary ---
:2000 Author Organization [employer] Address [address] [place] [address] Care Team Providers Name Role Phone Palmira Lim MD Primary Care Provider Reason for Visit Reason Onset Date Comments Joaquina 09/14/2009 Refill 09/14/2009 Encounter Details Date Type Department Care Team Description 09/14/2009 Refill [facility] Katya Mccullough MD [place]; Refill [address] [place] [address] [place] [address] [phone] (Wo rk) Social History Tobacco Use Types Packs/Day Years Used Date Smoking Tobacco: Passive Smoke Exposure - Never Smoker Comments: mom smokes Alcohol Use Standard Drinks/Week Comments Not Asked 0 (1 standard drink = 0.6 oz pure alcoho l) Sex Assigned at Date Recorded Female 09/14/2020 7:23 AM CDT documented as of this encounter Nursing Notes Katia Ellis, RN - 09/17/2009 8:34 AM CDTApproved Prescriptions: Disp Refills amphetamine-dextroamphetamine (ADDERALL XR,30 Cap 0Sig: Take 1 Cap by mouth every morning.Authorizing Provider: KATYA MCCULLOUGH User: KATIA JESUS Katia Ellis RN - 09/17/2009 8:34 AM CDT Future appointment is scheduled. Request within appropriate time parameters. Prescription prepared for provider's signature. Will be ready for pickling solution maker. Katia Ellis RN - 09/14/2009 1:22 PM CDT Will not be able to pickling solution maker today. No MD available to sign until 09/17/09. Parent informed.Katia Francis RN Diamond Sher - 09/14/2009 12:15 PM CDT Pending Prescriptions: Disp Refills amphetamine-dextroamphetamine (ADDERALL XR,30 Cap 0 Sig: Take 1 Cap by mouth every morning. Diamond Sher - 09/14/2009 12:15 PM CDT Next appt. 10-17-09. Diamond Sher Katia Ellis RN - 09/14/2009 9:36 AM CDT Pending Prescriptions: Disp Refills amphetamine-dextroamphetamine (ADDERALL XR,30 Cap 0 Sig: Take 1 Cap by mouth every morning. Katia Ellis, RN - 09/14/2009 9:31 AM CDT Last visit 05/24/09, RTC September. No follow up appointment scheduled. Will route to [facility] to attempt to schedule patient - Please route back to nursing to authorize once scheduled. Katia Francis RN Abby Ojeda - 09/14/2009 8:59 AM CDT Need written RX for Adderall to be picked today if possible all out of medication ~ please call whenready. documented in this encounter Plan of Treatment Not on filedocumented as of this encounter Visit Diagnoses Diagnosis Attention deficit disorder with hyperact ivity(314.01) ([facility]) Attention deficit disorder with hyperact ivity documented in this encounter Care Teams Air Brush Decorator Relationship Specialty Start Date End Date Palmira Lim MD PCP - General 05/08/[address] [place] [address] documented as of this encounter
--- OUTSIDE RECORDS SUMMARY | 2021-12-08 10:29 | XMS_ITS | Encounter Summary ---
:1999 Author Organization [employer] Address [address] [place] [address] Care Team Providers Name Role Phone Palmira Lim MD Primary Care Provider Reason for Visit Reason Onset Date Comments Refill 11/29/2008 Encounter Details Date Type Department Care Team Description 11/29/2008 Refill [facility] Katya Rios MD Refill [address] [address] [address] [place] [address] [place] [address] (Wo rk) Social History Tobacco Use Types [...] Diagnosis Attention deficit disorder with hyperact ivity(314.01) ([facility]) - Primary Attention deficit disorder with hyperact ivity documented in this encounter Care Teams Blind Lacer Relationship Specialty Start Date End Date Palmira Lim MD PCP - General 05/08/[address] [place] [address] documented as of this encounter
--- OUTSIDE RECORDS SUMMARY | 2021-12-08 10:29 | XMS_ITS | Encounter Summary ---
:1999 Author Organization [employer] Address [address] [place] [address] Care Team Providers Name Role Phone Palmira Lim MD Primary Care Provider Reason for Visit Reason Onset Date Comments Joaquina 05/30/2010 Refill 05/30/2010 Encounter Details Date Type Department Care Team Description 05/30/2010 Refill [facility] Katya Mccullough MD Ny[place]; Refill [address] [place] [address] [address] [address] [place], [place] [id number] (Wo rk) Social History Tobacco Use Types Packs/Day Years Used Date Smoking Tobacco: Passive Smoke Exposure - Never Smoker Comments: mom smokes Alcohol Use Standard Drinks/Week Comments Not Asked 0 (1 standard drink = 0.6 oz pure alcoho l) Sex Assigned at Date Recorded Female 09/14/2020 7:23 AM CDT documented as of this encounter Nursing Notes Katia Ellis, RN - 05/30/2010 10:51 AM CDTApproved Prescriptions: Disp Refills amphetamine-dextroamphetamine (AKA [id number] Tab 0Sig: Take 0.5 Tabs by mouth. every afternoonAuthorizing Provider: KATYA CMCULLOUGH User: KATIA JESUS amphetamine-dextroamphetamine (ADDERALL XR)30 Cap 0Sig: Take 1 Cap by mouth every morning.Authorizing Provider: KATYA MCCULLOUGH User: KATIA JESUS Katia Ellis RN - 05/30/2010 10:50 AM CDT Future appointment is scheduled. Request within appropriate time parameters. Prescription prepared for provider's signature. Will be ready for picking machine operator. Katia Francis RN April Rodriguez - 05/30/2010 10:36 AM CDT Mom would like to picking machine operator script. documented in this encounter Plan of Treatment Not on filedocumented as of this encounter Visit Diagnoses Diagnosis Attention deficit disorder with hyperact ivity(314.01) ([facility]) - Primary Attention deficit disorder with hyperact ivity documented in this encounter Care Teams Barge Captain Relationship Specialty Start Date End Date Palmira Lim MD PCP - General 05/08/[address] [place] [address] documented as of this encounter
--- OUTSIDE RECORDS SUMMARY | 2021-12-08 10:29 | XMS_ITS | Encounter Summary ---
:1999 Author Organization [employer] Address [address] [place] [address] Care Team Providers Name Role Phone Palmira Lim MD Primary Care Provider Encounter Details Date Type Department Care Team Description 07/19/2008 Notes/Orders [facility] Katya Kunz MD ADHD (Primary Dx) Psychiatry [address], [place] [address] [address] [place], [place] [id number] [phone] Social History Tobacco Use Types Packs/Day Years [...] as of this encounter Visit Diagnoses Diagnosis ADHD - Primary Attention deficit disorder with hyperact ivity documented in this encounter Care Teams Clip On Sunglasses Inspector Relationship Specialty Start Date End Date Palmira Lim MD PCP - General 05/08/[address] [place], [place] [address] documented as of this encounter
--- OUTSIDE RECORDS SUMMARY | 2021-12-08 10:29 | XMS_ITS | Encounter Summary ---
:1999 Author Organization [employer] Address [address] [place] [address] Care Team Providers Name Role Phone Palmira Lim MD Primary Care Provider Reason for Visit Reason Onset Date Comments Joaquina 09/05/2010 Refill 09/05/2010 Encounter Details Date Type Department Care Team Description 09/05/2010 Refill [facility] Katya Mccullough MD [place]; Refill [address] [place] [address] [place], [place] [phone] (Wo rk) Social History Tobacco Use Types Packs/Day Years Used Date Smoking Tobacco: Passive Smoke Exposure - Never Smoker Comments: mom smokes Alcohol Use Standard Drinks/Week Comments Not Asked 0 (1 standard drink = 0.6 oz pure alcoho l) Sex Assigned at Date Recorded Female 09/14/2020 7:23 AM CDT documented as of this encounter Nursing Notes Katia Ellis, RN - 09/05/2010 1:09 PM CDTApproved Prescriptions: Disp Refills amphetamine-dextroamphetamine (AKA [id number] Tab 0Sig: Take 0.5 Tabs by mouth. every afternoon.Authorizing Provider: KATYA MCCULLOUGH User: KATIA JESUS amphetamine-dextroamphetamine (ADDERALL XR)30 Cap 0Sig: Take 1 Cap by mouth every morning. Authorizing Provider: KATYA MCCULLOUGH User: KATIA JESUS Katia Ellis RN - 09/05/2010 1:08 PM CDT Future appointment is scheduled. Request within appropriate time parameters. Prescription prepared for provider's signature. Will be ready for picker machine operator. Diamond Sher - 09/05/2010 11:59 AM CDT Would like to pick this up tomorrow Thu. 8th. Diamond Sher documented in this encounter Plan of Treatment Not on filedocumented as of this encounter Visit Diagnoses Diagnosis Attention deficit disorder with hyperact ivity(314.01) ([facility]) - Primary Attention deficit disorder with hyperact ivity documented in this encounter Care Teams Shoe Patternmaker Relationship Specialty Start Date End Date Palmira Lim MD PCP - General 05/08/[address] [place] [address] documented as of this encounter
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
--- OUTSIDE RECORDS SUMMARY | 2021-12-08 10:29 | XMS_ITS | Encounter Summary ---
:1999 Author Organization [employer] [facility] Address [address] [place] [address] Care Team Providers Name Role Phone Palmira Lim MD Primary Care Provider Encounter Details Date Type Department Care Team Description 11/17/2007 Scanned History External to Transferred Record, [facility] Social History Tobacco Use Types Packs/Day Years Used Date Smoking Tobacco: Passive Smoke Exposure - Never Smoker Comments: mom smokes Alcohol Use Standard Drinks/Week Comments Not Asked 0 (1 standard drink = 0.6 oz pure alcoho l) Sex Assigned at Date Recorded Female 09/14/2020 7:23 AM CDT documented as of this encounter Progress Notes Interface, In Chrtscr And Scan - 11/17/2007 9:03 AM CDT documented in this encounter Plan of Treatment Not on filedocumented as of this encounter Visit Diagnoses Not on filedocumented in this encounter Care Teams Spring Maker Relationship Specialty Start Date End Date Palmira Lim MD PCP - General 05/08/[address] [place], [place] [id number] documented as of this encounter
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
--- OUTSIDE RECORDS SUMMARY | 2021-12-08 10:29 | XMS_ITS | Encounter Summary ---
:1999 Author Organization [employer] Address [address] [place] [address] Care Team Providers Name Role Phone Palmira Lim MD Primary Care Provider Reason for Visit Reason Onset Date Comments Joaquina 06/19/2008 Refill 06/19/2008 Encounter Details Date Type Department Care Team Description 06/19/2008 Refill [facility] Katya Mccullough MD Ny[place]; Refill [address] [place] [address] [place], [place] [id number] (Wo rk) Social History Tobacco Use Types Packs/Day Years Used Date Smoking Tobacco: Passive Smoke Exposure - Never Smoker Comments: mom smokes Alcohol Use Standard Drinks/Week Comments Not Asked 0 (1 standard drink = 0.6 oz pure alcoho l) Sex Assigned at Date Recorded Female 09/14/2020 7:23 AM CDT documented as of this encounter Nursing Notes Kasia Mejía, RN - 06/21/2008 7:55 AM CDTApproved Prescriptions: Disp Refills ADDERALL 5 MG OR TABS 30 0 Sig: Take 1 po qafternoon Authorizing Provider: KATYA MCCULLOUGH Ordering User: KASIA MEJÍA ADDERALL XR 10 MG OR CP24 30 0 Sig: Take one capsule in the morning. Authorizing Provider: KATYA MCCULLOUGH Ordering User: KASIA MEJÍA Kasia Mejía RN - 06/21/2008 7:55 AM CDT Future appointment is scheduled. Request within appropriate time parameters. Prescription prepared for provider's signature. Will be ready for picker box operator. Kasia Mejía RN Kasia Mejía RN - 06/20/2008 1:17 PM CDT Unable to leave a message - when dialed phone number, person who answered could not hear caller. Kasia Mejía RN Abby Ojeda - 06/19/2008 2:58 PM CDT Need written RX's for Adderall out of medication need SILVER will picker box operator at the front office representative please call when ready. documented in this encounter Plan of Treatment Not on filedocumented as of this encounter Visit Diagnoses Not on filedocumented in this encounter Care Teams Cell Room Supervisor Relationship Specialty Start Date End Date Palmira Lim MD PCP - General 05/08/[address] [place] [address] documented as of this encounter
--- OUTSIDE RECORDS SUMMARY | 2021-12-08 10:29 | XMS_ITS | Encounter Summary ---
:1999 Author Organization [facility] Address [address] [place] [address] Care Team Providers Name Role Phone Palmira Lim MD Primary Care Provider Reason for Visit Reason Onset Date Comments Joaquina 08/01/2010 Refill 08/01/2010 Encounter Details Date Type Department Care Team Description 08/01/2010 Refill [facility] Katya Mccullough MD [place]; Refill [address] [place] [address] [place] [address] [phone] (Wo rk) Social History Tobacco Use Types Packs/Day Years Used Date Smoking Tobacco: Passive Smoke Exposure - Never Smoker Comments: mom smokes Alcohol Use Standard Drinks/Week Comments Not Asked 0 (1 standard drink = 0.6 oz pure alcoho l) Sex Assigned at Date Recorded Female 09/14/2020 7:23 AM CDT documented as of this encounter Nursing Notes Camilla Jacob RN - 08/01/2010 11:23 AM CDTApproved Prescriptions: Disp Refills amphetamine-dextroamphetamine (AKA [id number] Tab 0Sig: Take 0.5 Tabs by mouth. every afternoon.Authorizing Provider: KATYA MCCULLOUGH User: CAMILLA JACOB amphetamine-dextroamphetamine (ADDERALL XR)30 Cap 0Sig: Take 1 Cap by mouth every morning. Authorizing Provider: KATYA MCCULLOUGH User: CAMILLA JACOB Kathi Coppola RN - 08/01/2010 11:00 AM CDT Future appt is scheduled. Request is within appropriate time parameters. On site RN to print Prescriptions for MD signature and then will be mailed to the home address Kathi Coppola RN Abby Ojeda - 08/01/2010 10:16 AM CDT Please mail written RX to home address. documented in this encounter Plan of Treatment Not on filedocumented as of this encounter Visit Diagnoses Diagnosis Attention deficit disorder with hyperact ivity(314.01) ([facility]) - Primary Attention deficit disorder with hyperact ivity documented in this encounter Care Teams Attraction Worker Relationship Specialty Start Date End Date Palmira Lim MD PCP - General 05/08/06 [address] [address] documented as of this encounter
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
--- OUTSIDE RECORDS SUMMARY | 2021-12-08 10:29 | XMS_ITS | Encounter Summary ---
:1999 Author Organization [employer] Address [address] [place] [address] Care Team Providers Name Role Phone Palmira Lim MD Primary Care Provider Reason for Visit Reason Onset Date Comments Joaquina 04/17/2010 Refill 04/17/2010 Encounter Details Date Type Department Care Team Description 04/17/2010 Refill [facility] Katya Mccullough MD [place]; Refill [address] [place] [address] [place] [address] [phone] (Wo rk) Social History Tobacco Use Types Packs/Day Years Used Date Smoking Tobacco: Passive Smoke Exposure - Never Smoker Comments: mom smokes Alcohol Use Standard Drinks/Week Comments Not Asked 0 (1 standard drink = 0.6 oz pure alcoho l) Sex Assigned at Date Recorded Female 09/14/2020 7:23 AM CDT documented as of this encounter Nursing Notes Katia Ellis, RN - 04/17/2010 1:12 PM CSTApproved Prescriptions: Disp Refills amphetamine-dextroamphetamine (AKA [id number] Tab 0Sig: Take 0.5 Tabs by mouth. every afternoonAuthorizing Provider: KATYA MCCULLOUGH User: KATIA JESUS amphetamine-dextroamphetamine (ADDERALL XR,30 Cap 0Sig: Take 1 Cap by mouth every morning.Authorizing Provider: KATYA MCCULLOUGH User: KATIA JESUS ENT NAVIGATOR Katia Ellis RN - 04/17/2010 1:12 PM CST Future appointment is scheduled. Request within appropriate time parameters. Prescription prepared for provider's signature. Will be mailed as requested. Katia Francis RN ENT NAVIGATOR Abby Ojeda - 04/17/2010 1:10 PM CST Please mail written RX's to home address. ENT NAVIGATOR documented in this encounter Plan of Treatment Not on filedocumented as of this encounter Visit Diagnoses Diagnosis Attention deficit disorder with hyperact ivity(314.01) ([facility]) - Primary Attention deficit disorder with hyperact ivity documented in this encounter Care Teams Erection Shop Supervisor Relationship Specialty Start Date End Date Palmira Lim MD PCP - General 05/08/[address] [place] [address] documented as of this encounter
--- OUTSIDE RECORDS SUMMARY | 2021-12-08 10:29 | XMS_ITS | Encounter Summary ---
:1999 Author Organization [employer] Address [address] [place] [address] Care Team Providers Name Role Phone Palmira Lim MD Primary Care Provider Reason for Visit Reason Onset Date Comments Joaquina 06/19/2010 Refill 06/19/2010 Encounter Details Date Type Department Care Team Description [facility] Joaquina Slaughter; Refill [address] [place] [address] [place], [place] [phone] (Wo rk) Social History Tobacco Use Types Packs/Day Years Used Date Smoking Tobacco: Passive Smoke Exposure - Never Smoker Comments: mom smokes Alcohol Use Standard Drinks/Week Comments Not Asked 0 (1 standard drink = 0.6 oz pure alcoho l) Sex Assigned at Date Recorded Female 09/14/2020 7:23 AM CDT documented as of this encounter Nursing Notes Katia Ellis, RN - 06/19/2010 9:54 AM CDTApproved Prescriptions: Disp Refills amphetamine-dextroamphetamine (AKA [id number] Tab 0Sig: Take 0.5 Tabs by mouth. every afternoon. To fill on/after 06/28/10 Authorizing Provider: GUERRERO MCCULLOUGH User: KATIA JESUS amphetamine-dextroamphetamine (ADDERALL XR)30 Cap 0Sig: Take 1 Cap by mouth every morning. To fill on/after 06/28/10 Authorizing Provider: GUERRERO MCCULLOUGH User: KATIA JESUS Katia Ellis RN - 06/19/2010 9:54 AM CDT Request within appropriate time parameters. Prescription prepared for provider's signature. Will be ready for cigar packer and picker. .Katia Francis RN April Rodriguez - 06/19/2010 9:07 AM CDT Mom would like to cigar packer and picker 06/20/10. documented in this encounter Plan of Treatment Not on filedocumented as of this encounter Visit Diagnoses Diagnosis Attention deficit disorder with hyperact ivity(314.01) ([facility]) - Primary Attention deficit disorder with hyperact ivity documented in this encounter Care Teams Creel Selector Relationship Specialty Start Date End Date Palmira Lim MD PCP - General 05/08/[address] [place] [address] documented as of this encounter
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
--- OUTSIDE RECORDS SUMMARY | 2021-12-08 10:29 | XMS_ITS | Encounter Summary ---
:1999 Author Organization [employer] Address [address] [place] [address] Care Team Providers Name Role Phone Palmira Lim MD Primary Care Provider Encounter Details Date Type Department Care Team Description 01/19/2009 [facility] Knee Pain [address] [place] [address] Social History Tobacco Use Types Packs/Day Years [...] Priority Date/Time Associated Diagnosis Comme nts XR KNEE LT Routine 01/19/2009 4:25 PM Knee Pain Results f or this AP/LAT/SUN AGRICULTURE TEACHER procedure are i n the results section. documented in this encounter Results XR KNEE AP/LAT/SUNRISE LEFT (01/19/2009 4:25 PM AGRICULTURE TEACHER) Anatomical Region Laterality Modality Lower Extremity, Knee Computed Radiograp hy Specimen (Source) Anatomical Collection Method Collection Time Re ceived Time Location / / Volume Laterality 01/19/2009 4:25 PM AGRICULTURE TEACHER Narrative 01/19/2009 6:04 PM AGRICULTURE TEACHER LEFT KNEE 3 VIEWS 01/19/2009 INDICATION:Trauma pain. FINDINGS: No bone or joint abnormality. Procedure Note Lyly Fitch M - 01/19/2009 LEFT KNEE 3 VIEWS 01/19/2009 INDICATION:Trauma pain. FINDINGS: No bone or joint abnormality. Randa Marin MD RAD GD documented in this encounter Visit Diagnoses Diagnosis Knee pain Pain in joint, lower leg documented in this encounter Care Teams Senior Java Web Application Developer Relationship Specialty Start Date End Date Palmira Lim MD PCP - General 05/08/[address] [place] [address] documented as of this encounter
--- OUTSIDE RECORDS SUMMARY | 2021-12-08 10:29 | XMS_ITS | Encounter Summary ---
:1999 Author Organization [employer] Address [address] [place] [address] Care Team Providers Name Role Phone Palmira Lim MD Primary Care Provider Reason for Visit Reason Onset Date Comments Joaquina 04/05/2009 Refill 04/05/2009 Encounter Details Date Type Department Care Team Description 04/05/2009 Refill [facility] Katya Mccullough MD [place]; Refill [address] [place] [address] [place] [address] [phone] (Wo rk) Social History Tobacco Use Types Packs/Day Years Used Date Smoking Tobacco: Passive Smoke Exposure - Never Smoker Comments: mom smokes Alcohol Use Standard Drinks/Week Comments Not Asked 0 (1 standard drink = 0.6 oz pure alcoho l) Sex Assigned at Date Recorded Female 09/14/2020 7:23 AM CDT documented as of this encounter Nursing Notes Katia Ellis, RN - 04/05/2009 9:57 AM CSTApproved Prescriptions: Disp Refills amphetamine-dextroamphetamine (ADDERALL XR,30 0Sig: Take one capsule in the morning.Authorizing Provider: KATYA MCCULLOUGH User: KATIA JESUS K SPLITTER OPERATOR Katia Ellis RN - 04/05/2009 9:57 AM CST Future appointment is scheduled. Request within appropriate time parameters. Prescription prepared for provider's signature. Will be mailed as requested. .Katia Francis RN K SPLITTER OPERATOR Abby Ojeda - 04/05/2009 9:24 AM CST Please mail written RX's to home address. Also need Adderall 5mg tablets salt combo. K SPLITTER OPERATOR documented in this encounter Plan of Treatment Not on filedocumented as of this encounter Visit Diagnoses Not on filedocumented in this encounter Care Teams Senior Cobol Developer Relationship Specialty Start Date End Date Palmira Lim MD PCP - General 05/08/[address] [place] [address] documented as of this encounter
--- OUTSIDE RECORDS SUMMARY | 2021-12-08 10:29 | XMS_ITS | Encounter Summary ---
:1999 Author Organization [employer] Address [address] [place] [address] Care Team Providers Name Role Phone Palmira Lim MD Primary Care Provider Reason for Visit Reason Onset Date Comments Joaquina 08/13/2009 Refill 08/13/2009 Encounter Details Date Type Department Care Team Description 08/13/2009 Refill [facility] Katya Rios MD [place]; Refill [address] [place] [address] [place] [address] [phone] (Wo rk) Social History Tobacco Use Types Packs/Day Years Used Date Smoking Tobacco: Passive Smoke Exposure - Never Smoker Comments: mom smokes Alcohol Use Standard Drinks/Week Comments Not Asked 0 (1 standard drink = 0.6 oz pure alcoho l) Sex Assigned at Date Recorded Female 09/14/2020 7:23 AM CDT documented as of this encounter Nursing Notes Katia Ellis, RN - 08/13/2009 9:32 AM CDTApproved Prescriptions: Disp Refills amphetamine-dextroamphetamine (AMPHETAMINE-15 Tab 0Sig: Take 0.5 Tabs by mouth. every afternoonAuthorizing Provider: Jaqueline PRO User: KATIA JESUS amphetamine-dextroamphetamine (ADDERALL XR,30 Cap 0Sig: Take 1 Cap by mouth every morning.Authorizing Provider: Jaqueline PRO User: KATIA JESUS Katia Ellis RN - 08/13/2009 9:31 AM CDT Future appointment is scheduled. Request within appropriate time parameters. Prescription prepared for provider's signature. Will be ready for parts picker. Katia Francis RN Lisette Diaz - 08/13/2009 9:15 AM CDT Mom states they are going out of town. She would like to parts picker the Rx today. documented in this encounter Plan of Treatment Not on filedocumented as of this encounter Visit Diagnoses Diagnosis Attention deficit disorder with hyperact ivity(314.01) ([facility]) Attention deficit disorder with hyperact ivity documented in this encounter Care Teams Cook At School Relationship Specialty Start Date End Date Palmira Lim MD PCP - General 05/08/[address] [place] [address] documented as of this encounter
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
--- OUTSIDE RECORDS SUMMARY | 2021-12-08 10:29 | XMS_ITS | Encounter Summary ---
:1999 Author Organization [employer] Address [address] [place] [address] Care Team Providers Name Role Phone Palmira Lim MD Primary Care Provider Reason for Visit Reason Onset Date Comments Joaquina 03/01/2009 Refill 03/01/2009 Encounter Details Date Type Department Care Team Description 03/01/2009 Refill [facility] Katya Mccullough MD [place]; Refill [address] [place] [address] [place] [address] [phone] (Wo rk) Social History Tobacco Use Types Packs/Day Years Used Date Smoking Tobacco: Passive Smoke Exposure - Never Smoker Comments: mom smokes Alcohol Use Standard Drinks/Week Comments Not Asked 0 (1 standard drink = 0.6 oz pure alcoho l) Sex Assigned at Date Recorded Female 09/14/2020 7:23 AM CDT documented as of this encounter Nursing Notes Katia Ellis, RN - 03/01/2009 10:12 AM CSTApproved Prescriptions: Disp Refills amphetamine-dextroamphetamine (ADDERALL XR,30 0Sig: Take one capsule in the morning.Fill after 03/05/09uthorizing Provider: KATYA MCCULLOUGH Ordering User: KATIA JESUS amphetamine-dextroamphetamine (AMPHETAMINE-30 0Sig: Take 1 po qafternoon.Fill after 03/05/09uthorizing Provider: KATYA MCCULLOUGH User: EDIN KATIA X Katia Hess RN - 03/01/2009 10:11 AM CST Future appointment is scheduled. Request within appropriate time parameters, last rx 02/02/09. Prescription prepared for provider's signature. Will be mailed as requested..Katia Francis RN April Smith - 03/01/2009 10:06 AM CST Please mail to home address. M documented in this encounter Plan of Treatment Not on filedocumented as of this encounter Visit Diagnoses Not on filedocumented in this encounter Care Teams Supervisor Sawmill Relationship Specialty Start Date End Date Palmira Lim MD PCP - General 05/08/[address] [facility] [place] [address] documented as of this encounter
--- OUTSIDE RECORDS SUMMARY | 2021-12-08 10:29 | XMS_ITS | Encounter Summary ---
:1999 Author Organization [facility] Address [address] [place] [address] Care Team Providers Name Role Phone Palmira Lim MD Primary Care Provider Encounter Details Date Type Department Care Team Description 07/10/2009 Notes/Orders [facility] Kirsten Angel ttention Deficit Psychiatry MD Mario Disorder with [address] [facility]. [address] [place] [address] [place], [place] (Primary Dx) [phone] [id number] Social History Tobacco Use Types Packs/Day Years [...] Diagnosis Attention deficit disorder with hyperact ivity(314.01) ([facility]) - Primary Attention deficit disorder with hyperact ivity documented in this encounter Care Teams Improvement Nurse Relationship Specialty Start Date End Date Palmira Lim MD PCP - General 05/08/[address] [place], [place] [address] documented as of this encounter
--- OUTSIDE RECORDS SUMMARY | 2021-12-08 10:29 | XMS_ITS | Encounter Summary ---
:1999 Author Organization [employer] Address [address] [place] [address] Care Team Providers Name Role Phone Palmira Lim MD Primary Care Provider Encounter Details Date Type Department Care Team Description 06/25/2010 Correspondence External to External, Provid er COMMUNICATION TO [place] [address] Social History Tobacco Use Types Packs/Day Years Used Date Smoking Tobacco: Passive Smoke Exposure - Never Smoker Comments: mom smokes Alcohol Use Standard Drinks/Week Comments Not Asked 0 (1 standard drink = 0.6 oz pure alcoho l) Sex Assigned at Date Recorded Female 09/14/2020 7:23 AM CDT documented as of this encounter Progress Notes Interface, In Chrtscr And Scan - 07/03/2010 12:59 PM CDT documented in this encounter Plan of Treatment Not on filedocumented as of this encounter Visit Diagnoses Not on filedocumented in this encounter Care Teams Incident Coordinator Relationship Specialty Start Date End Date Palmira Lim MD PCP - General 05/08/[address] [place], [place] [address] documented as of this encounter
--- OUTSIDE RECORDS SUMMARY | 2021-12-08 10:29 | XMS_ITS | Encounter Summary ---
:1999 Author Organization [employer] Address [address] [place] [address] Care Team Providers Name Role Phone Palmira Lim MD Primary Care Provider Encounter Details Date Type Department Care Team Description 01/07/2010 Office Visit [facility] Katya Kunz, Attennahomi n deficit Psychiatry MD disorder with [address] [facility], [address] [place] [address] (Primary [address] [place], [place] Dx) [place], [place] [phone] Social History Tobacco Use Types Packs/Day [...] Sign Reading Time Taken Comments Blood Pressure 128/73 01/07/2010 1:33 PM TELEPHONE DIRECTORY DELIVERER Pulse 121 01/07/2010 1:33 PM TELEPHONE DIRECTORY DELIVERER Temperature - - Respiratory Rate - - Oxygen Saturation - - Inhaled Oxygen Concentration - - Weight 31.8 kg (70 lb) 01/07/2010 1:33 PM TELEPHONE DIRECTORY DELIVERER Height 135.9 cm (4' 5.5) 01/07/2010 1:33 PM TELEPHONE DIRECTORY DELIVERER Body Mass Index 17.19 01/07/2010 1:33 PM TELEPHONE DIRECTORY DELIVERER Body Mass Index Percentile 52.41 % 01/07/2010 1:33 PM CS T Growth Chart: [facility] (Girls, 2-20 Years) documented in this encounter Progress Notes Katya Kunz - 01/04/2010 1:35 PM CDT Nabila Serna 01/07/2010 Psychiatric Follow-Up Visit Reason for Visit: Routine follow-up for psychiatric medication management Current outpatient prescriptions Medication Sig ??? amphetamine-dextroamphetamine (ADDERALL XR, 10MG,) 10 MG 24 hour release capsule Take 1 Cap by mouth every morning. ??? amphetamine-dextroamphetamine (AMPHETAMINE-DEXTROAMPHETAMINE) 10 MG tablet Take 0.5 Tabs by mouth. every afternoon ??? permethrin (ELIMITE) 5 % cream Apply from head to toe overnight and wash off, apply twice one week apart Chief Complaint: Followup attention deficit/hyperactivity disorder Current History: Nabila is seen with her mother and brother. They report that mood is good, no concerns about sleep or anxiety. Good control of attention deficit/hyperactivity disorder symptoms with current medication. She is getting good grades, and a high level of math and reading with good reports from school. She is excited about the upcoming of her niece. No new issues. Medical Review of Systems: no medical problems including gi,appetite suppression, preston, tics, palpitations; all other systems negative Labs: No indication for labs at this time. AIMS/DISCUS: N/A Chemical Use: No chemical use Social History Living Situation: bio mother Activities: hobbies/interests include choir, cello, karate Education: 5th grader at [employer] Mental Status Exam: Nabila is casually groomed. Appears stated age. Behavior in the office is pleasant and cooperative. Good eye contact. Affect is bright, full range; mood is described by patient as good . Gait is normal. There are no abnormal movements. No tics, tremors, grimaces. Speech is of normal rate and rhythm, not pressured. Use of language is consistent with developmental age. Patient is oriented to person, place and time. Attention/concentration are good. Thought process is logical and goal-directed with no looseness of associations. Thought content is without evidence of psychosis, SI,HI or other abnormality. Fund of knowledge is consistent with developmental status. Memory appears to be intact in both recent and remote abilities. Insight and judgment are limited for age. Assessment: Nabila Serna is an 9-year-old girl with attention deficit hyperactivity disorder, which has been well treated with Adderall without ae. We will continue current treatment plan. The patient is at low risk for suicidal behavior. Diagnosis: [place] I: Attention deficit hyperactivity disorder, [place] II: None. [place] III: None. Plan: Continue current meds with no changes Appointment in: 4 months Visit Summary: medication management. This note was transcribed using [employer] technology and was released without complete editing. Katya Kunz MD PHONE DIRECTORY DELIVERER documented in this encounter Plan of Treatment Not on filedocumented as of this encounter Visit Diagnoses Diagnosis Attention deficit disorder with hyperact ivity(314.01) ([facility]) - Primary Attention deficit disorder with hyperact ivity documented in this encounter Care Teams Checker Cashier Relationship Specialty Start Date End Date Palmira Lim MD PCP - General 05/08/06 [address], [place] [address] documented as of this encounter
--- OUTSIDE RECORDS SUMMARY | 2021-12-08 10:29 | XMS_ITS | Encounter Summary ---
:1999 Author Organization [employer] Address [address] [place] [address] Care Team Providers Name Role Phone Palmira Lim MD Primary Care Provider Reason for Visit Reason Onset Date Comments Joaquina 06/11/2009 Refill 06/11/2009 Encounter Details Date Type Department Care Team Description 06/11/[address] [facility] Katya Mccullough MD [place]; Refill [address] [place] [address] [place] [address] [phone] (Wo rk) Social History Tobacco Use Types Packs/Day Years Used Date Smoking Tobacco: Passive Smoke Exposure - Never Smoker Comments: mom smokes Alcohol Use Standard Drinks/Week Comments Not Asked 0 (1 standard drink = 0.6 oz pure alcoho l) Sex Assigned at Date Recorded Female 09/14/2020 7:23 AM CDT documented as of this encounter Nursing Notes Katia Ellis, RN - 06/11/2009 11:19 AM CDTApproved Prescriptions: Disp Refills amphetamine-dextroamphetamine (ADDERALL XR,30 Cap 0Sig: Take 1 Cap by mouth every morning.Authorizing Provider: KATYA MCCULLOUGH User: KATIA JESUS amphetamine-dextroamphetamine (AMPHETAMINE-30 Tab 0Sig: Take 1 Tab by mouth. 1 po q afternoonAuthorizing Provider: KATYA MCCULLOUGH Ordering User: KATIA JESUS Katia Ellis RN - 06/11/2009 11:17 AM CDT Future appointment is scheduled. Request within appropriate time parameters. Prescription prepared for provider's signature. Will be ready for supervisor picking crew. Katia Francis RN Abby Ojeda - 06/11/2009 10:00 AM CDT Need written RX's for Adderall medication to supervisor picking crew at the clinic~ please call Twila at [phone] when ready. documented in this encounter Plan of Treatment Not on filedocumented as of this encounter Visit Diagnoses Not on filedocumented in this encounter Care Teams Route Delivery Manager Relationship Specialty Start Date End Date Palmira Lim MD PCP - General 05/08/[address] [place] [address] documented as of this encounter
--- OUTSIDE RECORDS SUMMARY | 2021-12-08 10:29 | XMS_ITS | Encounter Summary ---
:1999 Author Organization [employer] Address [address] [place] [address] Care Team Providers Name Role Phone Palmira Lim MD Primary Care Provider Encounter Details Date Type Department Care Team Description 04/05/2008 Scanned History External to External, [facility] No [place] [address] Social History Tobacco Use Types Packs/Day Years Used Date Smoking Tobacco: Passive Smoke Exposure - Never Smoker Comments: mom smokes Alcohol Use Standard Drinks/Week Comments Not Asked 0 (1 standard drink = 0.6 oz pure alcoho l) Sex Assigned at Date Recorded Female 09/14/2020 7:23 AM CDT documented as of this encounter Progress Notes Interface, In Chrtscr And Scan - 04/05/2008 12:38 PM EMPLOYEE BENEFITS COORDINATOR OYEE BENEFITS COORDINATOR documented in this encounter Plan of Treatment Not on filedocumented as of this encounter Visit Diagnoses Not on filedocumented in this encounter Care Teams Sql Server Developer Relationship Specialty Start Date End Date Palmira Lim MD PCP - General 05/08/[address] [place], [place] [address] documented as of this encounter
--- OUTSIDE RECORDS SUMMARY | 2021-12-08 10:29 | XMS_ITS | Encounter Summary ---
:1999 Author Organization [employer] Address [address] [place] [address] Care Team Providers Name Role Phone Palmira Lim MD Primary Care Provider Reason for Visit Reason Onset Date Comments Joaquina 12/25/2009 Refill 12/25/2009 Encounter Details Date Type Department Care Team Description 12/25/[address] [facility] Katya Mccullough MD [place]; Refill [address] [place] [address] [place] [address] [phone] (Wo rk) Social History Tobacco Use Types Packs/Day Years Used Date Smoking Tobacco: Passive Smoke Exposure - Never Smoker Comments: mom smokes Alcohol Use Standard Drinks/Week Comments Not Asked 0 (1 standard drink = 0.6 oz pure alcoho l) Sex Assigned at Date Recorded Female 09/14/2020 7:23 AM CDT documented as of this encounter Nursing Notes Katia Ellis, RN - 12/26/2009 9:32 AM CDTApproved Prescriptions: Disp Refills amphetamine-dextroamphetamine (ADDERALL XR,30 Cap 0Sig: Take 1 Cap by mouth every morning.Authorizing Provider: KATYA MCCULLOUGH User: KATIA JESUS amphetamine-dextroamphetamine (AMPHETAMINE-15 Tab 0Sig: Take 0.5 Tabs by mouth. every afternoonAuthorizing Provider: KATYA MCCULLOUGH Ordering User: KATIA JESUS Katia Ellis RN - 12/26/2009 9:32 AM CDT Rx prepared for pickle maker.Katia Francis RN Nivia King RN - 12/25/2009 10:33 AM CDT Last RX 11/26 Last visit 05/24, next f/u 01/07 Future appointment scheduled. requested within appropriate time parameters. Prescription prepared for provider's signature. Will be ready for pickle maker on Thu when provider available for sig. per standing order MANDY Ferris Diamond Sher - 12/25/2009 9:01 AM CDT Please call when ready, has a couple of days left. Diamond Sher documented in this encounter Plan of Treatment Not on filedocumented as of this encounter Visit Diagnoses Diagnosis Attention deficit disorder with hyperact ivity(314.01) ([facility]) Attention deficit disorder with hyperact ivity documented in this encounter Care Teams Card Game Operator Relationship Specialty Start Date End Date Palmira Lim MD PCP - General 05/08/06 [address], [place] [address] documented as of this encounter
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
--- OUTSIDE RECORDS SUMMARY | 2021-12-08 10:29 | XMS_ITS | Encounter Summary ---
:1999 Author Organization [employer] Address [address] [place] [address] Care Team Providers Name Role Phone Palmira Lim MD Primary Care Provider Encounter Details Date Type Department Care Team Description 10/17/2009 Office Visit [facility] Katya Kunz, Attennahomi n Deficit Psychiatry MD Disorder with [address] [facility], [address] [facility] (Primary [address] [place], [place] Dx) [place], [place] [id number] Social History Tobacco Use Types Packs/Day [...] Sign Reading Time Taken Comments Blood Pressure 104/27 10/17/2009 2:02 PM CDT Pulse 61 10/17/2009 2:02 PM CDT Temperature - - Respiratory Rate - - Oxygen Saturation - - Inhaled Oxygen Concentration - - Weight 29.5 kg (65 lb) 10/17/2009 2:02 PM CDT Height 132.1 cm (4' 4) 10/17/2009 2:02 PM CDT Body Mass Index 16.9 10/17/2009 2:02 PM CDT Body Mass Index Percentile 49.81 % 10/17/2009 2:02 PM CD T Growth Chart: CDC (Girls, 2-20 Years) documented in this encounter Progress Notes Katya Kunz Jean Carlos - 10/15/2009 9:04 AM CDT Nabila Serna 10/17/2009 Psychiatric Follow-Up Visit Reason for Visit: Routine [...] apply twice one week apart Chief Complaint: Low frustration tolerance, impulsivity and irritability in the evenings Current History: Nabila is seen with her mother and brother. Mom reports that she is not been giving the afternoon Adderall and also has noted increased impulsivity, irritability, inattention in the evenings. This has been a major issue at softball. She recently took the afternoon Adderall and had positive feedback from the defensive secondary coach. She had good end of the school year with all ages and above average testing. Sleep has been good, appetite good. Nabila denies depression. Mom notes that Nabila is starting to develop. She has not noted a pattern to moods or irritability in terms of any relationship to hormones. She does note that Nabila can be quite entitled. There is been much change in stress in the household in the past year. Older sister went off her medications, moved out of the house, is currently and moved back in the home with boyfriend. In addition of another older sister was in [place] for part of the last year. In addition Deepak is moved into the home. Nabila is getting along well with him and calls him dad. The family is discussing possibly moving to [place] to be nearer to his other 2 children. There has been much conflict with their mother not allowing them to visit [place]. Reviewedgrowth chart. Medical Review of Systems: no medical problems including gi,appetite suppression, preston, tics, palpitations; all other systems negative Labs: No indication for labs at this time. AIMS/DISCUS: N/A Chemical Use: No chemical use Social History Living Situation: bio mother Activities: hobbies/interests include choir, cello, karate Education: 5th grader at [employer] Mental Status Exam: Nabila is casually groomed. Appears stated age. Behavior in the office is pleasant and excited to show off new cell phone. Good eye contact. Affect is guarded about moods and behavior; bright, full range; mood is described by patient as fine. Gait is normal. There are no abnormal movements. No tics, tremors, grimaces. Speech is of normal rate and rhythm, not pressured. Use of language is consistent with developmental age. Patient is oriented to person, place and time. Attention/concentration are impaired. Thought process is logical and goal-directed with [...] been well treated with Adderall without ae. She has not been using short-acting dose in the afternoon and we discussed restarting this. We also discussed appropriate cell phone boundaries for herage. Mother has parental restrictions. We discussed the importance of clear expectations and consistent consequences for behaviors. The patient is at low risk for suicidal behavior. Diagnosis: [place] I: Attention deficit hyperactivity disorder, [place] II: None. [place] III: None. Plan: Add/change medications as follows: Recent Adderall 5 milligrams the afternoon The patient was warned regarding the potential risks of using stimulants which include increased blood pressure, cardiac effects, increased tolerance and abuse Discussed need to implement family and behavioral therapy interventions Appointment in: 3 months Visit Summary: 25 minutes with >50% of the time spent on educational counseling regarding diagnosis and prognosis, the purpose of her medications and potential side effects and treatment options. Katya Kunz MD documented in this encounter Plan of Treatment Not on filedocumented as of this encounter Visit Diagnoses Diagnosis Attention deficit disorder with hyperact ivity(314.01) ([facility]) - Primary Attention deficit disorder with hyperact ivity documented in this encounter Care Teams Informatics Scientist Relationship Specialty Start Date End Date Palmira Lim MD PCP - General 05/08/06 [address] [address] documented as of this encounter
--- OUTSIDE RECORDS SUMMARY | 2021-12-08 10:29 | XMS_ITS | Encounter Summary ---
:1999 Author Organization [employer] Address [address] [place] [address] Care Team Providers Name Role Phone Palmira Lim MD Primary Care Provider Reason for Visit Reason Onset Date Comments Joaquina 07/09/2009 Refill 07/09/2009 Encounter Details Date Type Department Care Team Description 07/09/2009 Refill [facility] Katya Rios MD [place]; Refill [address] [place] [address] [place] [address] [place] [address] [phone] (Wo rk) Social History Tobacco Use Types Packs/Day Years Used Date Smoking Tobacco: Passive Smoke Exposure - Never Smoker Comments: mom smokes Alcohol Use Standard Drinks/Week Comments Not Asked 0 (1 standard drink = 0.6 oz pure alcoho l) Sex Assigned at Date Recorded Female 09/14/2020 7:23 AM CDT documented as of this encounter Nursing Notes April Rodriguez - 07/10/2009 2:15 PM CDT 2 Script mailed to home address today. Her scripts were mailed with the rest of her families. Cleveland Knox RN - 07/10/2009 9:10 AM CDTApproved Prescriptions: Disp Refills amphetamine-dextroamphetamine (AMPHETAMINE-15 Tab 0Sig: Take 0.5 Tabs by mouth. every afternoonAuthorizing Provider: KATYA MCCULLOUGH User: C[place]AND KNOX amphetamine-dextroamphetamine (ADDERALL XR,30 Cap 0Sig: Take 1 Cap by mouth every morning.Authorizing Provider: KATYA MCCULLOUGH User: [place] KNOX Margo Ellis RN - 07/09/2009 10:23 AM CDT Future appointment is scheduled. Request within appropriate time parameters. [facility] provider's signature on 07/10/09. Will be mailed as requested.Margo Francis RN April Rodriguez - 07/09/2009 9:56 AM CDT Please mail to home address. documented in this encounter Plan of Treatment Not on filedocumented as of this encounter Visit Diagnoses Not on filedocumented in this encounter Care Teams Hospital Laboratory Technician Relationship Specialty Start Date End Date Palmira Lim MD PCP - General 05/08/[address] [place] [address] documented as of this encounter
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
--- OUTSIDE RECORDS SUMMARY | 2021-12-08 10:29 | XMS_ITS | Encounter Summary ---
:1999 Author Organization [employer] Address [address] [place] [address] Care Team Providers Name Role Phone Palmira Lim MD Primary Care Provider Reason for Visit Reason Onset Date Comments Joaquina 01/30/2010 Refill 01/30/2010 Encounter Details Date Type Department Care Team Description 01/30/2010 Refill [facility] Katya Mccullough MD [place]; Refill [address] [facility], [place] [address] [place] [address] [place] [address] [phone] (Wo rk) Social History Tobacco Use Types Packs/Day Years Used Date Smoking Tobacco: Passive Smoke Exposure - Never Smoker Comments: mom smokes Alcohol Use Standard Drinks/Week Comments Not Asked 0 (1 standard drink = 0.6 oz pure alcoho l) Sex Assigned at Date Recorded Female 09/14/2020 7:23 AM CDT documented as of this encounter Nursing Notes Katia Ellis, RN - 01/30/2010 9:50 AM CSTApproved Prescriptions: Disp Refills amphetamine-dextroamphetamine (ADDERALL XR,30 Cap 0Sig: Take 1 Cap by mouth every morning.Authorizing Provider: KATYA MCCULLOUGH User: EDIN, KATIA X amphetamine-dextroamphetamine (AMPHETAMINE-15 Tab 0Sig: Take 0.5 Tabs by mouth. every afternoonAuthorizing Provider: KATYA MCCULLOUGH User: KATIA JESUS MAIL TECHNICIAN Katia Ellis RN - 01/30/2010 9:50 AM CST Request within appropriate time parameters. Prescription prepared for provider's signature. Will be ready for hot die picker. Katia Francis RN MAIL TECHNICIAN Diamond Sher - 01/30/2010 9:27 AM CST Please call when ready, would like to pick these up today. Diamond Sher MAIL TECHNICIAN documented in this encounter Plan of Treatment Not on filedocumented as of this encounter Visit Diagnoses Diagnosis Attention deficit disorder with hyperact ivity(314.01) ([facility]) Attention deficit disorder with hyperact ivity documented in this encounter Care Teams Media Clerk Relationship Specialty Start Date End Date Palmira Lim MD PCP - General 05/08/06 [address] [place] [address] documented as of this encounter
--- OUTSIDE RECORDS SUMMARY | 2021-12-08 10:29 | XMS_ITS | Encounter Summary ---
:1999 Author Organization [employer] Address [address] [place] [address] Care Team Providers Name Role Phone Palmira Lim MD Primary Care Provider Reason for Visit Reason Onset Date Comments Joaquina 03/13/2010 Refill 03/13/2010 Encounter Details Date Type Department Care Team Description 03/13/2010 Refill [facility] Katya Mccullough MD [place]; Refill [address] [place] [address] [place] [address] [place] [address] [phone] (Wo rk) Social History Tobacco Use Types Packs/Day Years Used Date Smoking Tobacco: Passive Smoke Exposure - Never Smoker Comments: mom smokes Alcohol Use Standard Drinks/Week Comments Not Asked 0 (1 standard drink = 0.6 oz pure alcoho l) Sex Assigned at Date Recorded Female 09/14/2020 7:23 AM CDT documented as of this encounter Nursing Notes Katia Ellis, RN - 03/13/2010 3:21 PM CSTApproved Prescriptions: Disp Refills amphetamine-dextroamphetamine (ADDERALL XR,30 Cap 0Sig: Take 1 Cap by mouth every morning.Authorizing Provider: KATYA MCCULLOUGH User: EDIN, KATIA X amphetamine-dextroamphetamine (AMPHETAMINE-15 Tab 0Sig: Take 0.5 Tabs by mouth. every afternoonAuthorizing Provider: KATYA MCCULLOUGH User: KATIA JESUS TURNER Katia Ellis RN - 03/13/2010 3:21 PM CST Future appointment is scheduled. Request within appropriate time parameters. Prescription prepared for provider's signature. Will be ready for picker. Katia Francis RN TURNER April Rodriguez - 03/13/2010 3:06 PM CST Mom would like to picker today. TURNER documented in this encounter Plan of Treatment Not on filedocumented as of this encounter Visit Diagnoses Diagnosis Attention deficit disorder with hyperact ivity(314.01) ([facility]) Attention deficit disorder with hyperact ivity documented in this encounter Care Teams Programming Development Project Manager Relationship Specialty Start Date End Date Palmira Lim MD PCP - General 05/08/[address] [place] [address] documented as of this encounter
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
--- OUTSIDE RECORDS SUMMARY | 2021-12-08 10:29 | XMS_ITS | Encounter Summary ---
:2000 Author Organization [employer] Address [address] [place] [address] Care Team Providers Name Role Phone Palmira Lim MD Primary Care Provider Encounter Details Date Type Department Care Team Description 03/28/2010 Office Visit [facility] Katya Kunz, Attennahomi n deficit Psychiatry MD disorder with [facility], [address] [facility] (Primary [address] [place], [place] Dx) [place], [place] [phone] Social History Tobacco Use Types Packs/Day [...] Sign Reading Time Taken Comments Blood Pressure 114/61 03/28/2010 1:10 PM SALES PROJECT ADMINISTRATOR Pulse 91 03/28/2010 1:10 PM SALES PROJECT ADMINISTRATOR Temperature - - Respiratory Rate - - Oxygen Saturation - - Inhaled Oxygen Concentration - - Weight 31.8 kg (70 lb) 03/28/2010 1:10 PM SALES PROJECT ADMINISTRATOR Height 137.2 cm (4' 6) 03/28/2010 1:10 PM SALES PROJECT ADMINISTRATOR Body Mass Index 16.88 03/28/2010 1:10 PM SALES PROJECT ADMINISTRATOR Body Mass Index Percentile 44.98 % 03/28/2010 1:10 PM CS T Growth Chart: CDC (Girls, 2-20 Years) documented in this encounter Progress Notes Katya Kunz - 03/27/2010 8:33 AM CST Nabila Serna 03/28/2010 Psychiatric Follow-Up Visit Reason for Visit: Routine follow-up for psychiatric medication management Current outpatient prescriptions Medication Sig ??? amphetamine-dextroamphetamine (ADDERALL XR, 10MG,) 10 MG 24 hour release capsule Take 1 Cap by mouth every morning. ??? amphetamine-dextroamphetamine (AMPHETAMINE-DEXTROAMPHETAMINE) 10 MG tablet Take 0.5 Tabs by mouth. every afternoon Chief Complaint: Refill medication Current History: Nabila is seen with her mother. They report that she is doing well overall academically, minimal concerns regarding inattention, hyperactivity. There been some issues with organization and not liking reading and she has been losing this homework frequently. We spent some time discussing organizational strategies and they will implement a check-in at home upon completion of her assignments that they are in her backpack. She is open to this option. No concerns today regarding mood or anxiety. She is doing well with independent living skills. She gets herself up in the morning to go toschool and do patrol. She shares that she usually skips breakfast. Sometimes does not have time to eat all that she would like to at lunch. They share that she has a good appetite at dinnertime. Medical Review of Systems: Mild appetite suppression, no medical problems including gi, preston, tics, palpitations; all other systems negative Labs: No indication for labs at this time. AIMS/DISCUS: N/A Chemical Use: No chemical use Social History Living Situation: bio mother Activities: hobbies/interests include choir, cello, karate Education: 5th grader at [employer] Mental Status Exam: Nabila is casually [...] well treated with Adderall without ae. We discussed the importance of eating breakfast daily and ways to implement this into her routine. Also discussed some organization and behavior changes to get reading homework incident. We will continue current treatment plan. The patient is at low risk for suicidal behavior. Diagnosis: Seymour I: Attention deficit hyperactivity disorder, Seymour II: None. Seymour III: None. Plan: Continue current meds with no changes Eat breakfast, increase Protein Appointment in: 6 months Visit Summary: 25 minutes with >50% of the time spent on educational counseling regarding diagnosis and prognosis, treatment options and organization strategies and dietary adjustments. This note was transcribed using TapFit0 (RToolWire technology and was released without completeediting. Katya Kunz MD S PROJECT ADMINISTRATOR documented in this encounter Plan of Treatment Not on filedocumented as of this encounter Visit Diagnoses Diagnosis Attention deficit disorder with hyperact ivity(314.01) ([facility]) - Primary Attention deficit disorder with hyperact ivity documented in this encounter Care Teams Fire Alarm Dispatcher Relationship Specialty Start Date End Date Palmira Lim MD PCP - General 05/08/06 [address], [place] [address] documented as of this encounter
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
--- OUTSIDE RECORDS SUMMARY | 2021-12-08 10:29 | XMS_ITS | Encounter Summary ---
:1999 Author Organization [employer] Address [address] [place] [address] Care Team Providers Name Role Phone Palmira Lim MD Primary Care Provider Reason for Visit Reason Onset Date Comments Joaquina 11/26/2009 Refill 11/26/2009 Encounter Details Date Type Department Care Team Description 11/26/2009 Refill [facility] Katya Mccullough MD [place]; Refill [address] [place] [address] [place] [address] [phone] (Wo rk) Social History Tobacco Use Types Packs/Day Years Used Date Smoking Tobacco: Passive Smoke Exposure - Never Smoker Comments: mom smokes Alcohol Use Standard Drinks/Week Comments Not Asked 0 (1 standard drink = 0.6 oz pure alcoho l) Sex Assigned at Date Recorded Female 09/14/2020 7:23 AM CDT documented as of this encounter Nursing Notes Katia Ellis, RN - 11/26/2009 2:26 PM CDTApproved Prescriptions: Disp Refills amphetamine-dextroamphetamine (ADDERALL XR,30 Cap 0Sig: Take 1 Cap by mouth every morning.Authorizing Provider: KATYA MCCULLOUGH User: KATIA JESUS amphetamine-dextroamphetamine (AMPHETAMINE-15 Tab 0Sig: Take 0.5 Tabs by mouth. every afternoonAuthorizing Provider: KATYA MCCULLOUGH Ordering User: KATIA JESUS Katia Ellis RN - 11/26/2009 2:26 PM CDT Future appointment is scheduled. Request within appropriate time parameters. Prescription prepared for provider's signature. Will be ready for rock picker. Katia Francis RN Abby Ojeda - 11/26/2009 1:45 PM CDT Need written RX's today if possible out of medication to be picked up at the clinic ~ please call when ready. documented in this encounter Plan of Treatment Not on filedocumented as of this encounter Visit Diagnoses Diagnosis Attention deficit disorder with hyperact ivity(314.01) ([facility]) Attention deficit disorder with hyperact ivity documented in this encounter Care Teams Wrong Address Clerk Relationship Specialty Start Date End Date Palmira Lim MD PCP - General 05/08/06 [address] [address] documented as of this encounter
--- OUTSIDE RECORDS SUMMARY | 2021-12-08 10:29 | XMS_ITS | Encounter Summary ---
:1999 Author Organization [employer] Address [address] [place] [address] Care Team Providers Name Role Phone Palmira Lim MD Primary Care Provider Reason for Visit Reason Onset Date Comments Joaquina 08/17/2008 Refill 08/17/2008 Encounter Details Date Type Department Care Team Description 08/17/2008 Refill [facility] Katya Mccullough MD [place]; Refill [address] [place] [address] [place] [address] [phone] (Wo rk) Social History Tobacco Use Types Packs/Day Years Used Date Smoking Tobacco: Passive Smoke Exposure - Never Smoker Comments: mom smokes Alcohol Use Standard Drinks/Week Comments Not Asked 0 (1 standard drink = 0.6 oz pure alcoho l) Sex Assigned at Date Recorded Female 09/14/2020 7:23 AM CDT documented as of this encounter Nursing Notes Katia Ellis, RN - 08/17/2008 2:22 PM CDTApproved Prescriptions: Disp Refills ADDERALL 5 MG OR TABS 30 0Sig: Take 1 po qafternoon. Dispense after 08/18/08Authorizing Provider: KATYA MCCULLOUGH User: KATIA JESUS ADDERALL XR 10 MG OR CP24 30 0Sig: Take one capsule in the morning. Dispense after 08/18/08Authorizing Provider: KATYA MCCULLOUGH User: KATIA JESUS Katia Ellis RN - 08/17/2008 2:20 PM CDT Future appointment is scheduled 10/19/08. Request within appropriate time parameters. Prescription prepared for provider's signature. Will be ready for corn picker. Diamond Sher - 08/17/2008 1:33 PM CDT If possible, can she pick this up today, if not tomorrow. Diamond Sher documented in this encounter Plan of Treatment Not on filedocumented as of this encounter Visit Diagnoses Not on filedocumented in this encounter Care Teams Seed Analyst Relationship Specialty Start Date End Date Palmira Lim MD PCP - General 05/08/06 [address] [place] [address] documented as of this encounter
--- OUTSIDE RECORDS SUMMARY | 2021-12-08 10:29 | XMS_ITS | Encounter Summary ---
:1999 Author Organization [employer] Address [address] [place] [address] Care Team Providers Name Role Phone Palmira Lim MD Primary Care Provider Reason for Visit Reason Onset Date Comments Joaquina 10/02/2008 Refill 10/02/2008 Encounter Details Date Type Department Care Team Description 10/02/2008 Refill [facility] Katya Mccullough MD [place]; Refill [address] [place] [address] [place] [address] [phone] (Wo rk) Social History Tobacco Use Types Packs/Day Years Used Date Smoking Tobacco: Passive Smoke Exposure - Never Smoker Comments: mom smokes Alcohol Use Standard Drinks/Week Comments Not Asked 0 (1 standard drink = 0.6 oz pure alcoho l) Sex Assigned at Date Recorded Female 09/14/2020 7:23 AM CDT documented as of this encounter Nursing Notes Katia Ellis, RN - 10/02/2008 1:46 PM CDTApproved Prescriptions: Disp Refills amphetamine-dextroamphetamine (ADDERALL, 5M30 0Sig: Take 1 po qafternoon.Authorizing Provider: KATYA MCCULLOUGH User: KATIA JESUS amphetamine-dextroamphetamine (ADDERALL XR,30 0Sig: Take one capsule in the morning.Authorizing Provider: KATYA MCCULLOUGH User: KATIA JESUS Katia Ellis RN - 10/02/2008 1:42 PM CDT Future appointment is scheduled. Request within appropriate time parameters, last filled 08/18/08. Prescription prepared for provider's signature. Will be prepared for picker / packer. Katia Francis RN Mary Jo Salgado - 10/02/2008 10:40 AM CDT Will picker / packer form documented in this encounter Plan of Treatment Not on filedocumented as of this encounter Visit Diagnoses Not on filedocumented in this encounter Care Teams Astro Technician Relationship Specialty Start Date End Date Palmira Lim MD PCP - General 05/08/[address] [place] [address] documented as of this encounter
[2021-12-08 10:30] LABS: Slide Review Reflex No
--- OUTSIDE RECORDS SUMMARY | 2021-12-08 10:30 | XMS_ITS | Encounter Summary ---
:1999 Author Organization [employer] Address [address] [place] [address] Care Team Providers Name Role Phone Palmira Lim MD Primary Care Provider Reason for Visit Reason Comments RASH in vaginal area Encounter Details Date Type Department Care Team Description 06/16/2007 Office Visit [facility] Vaginitis and Vulvovaginitis (Primary Dx); [address] Rash [place] [address] Social History Tobacco Use Types [...] Taken Comments Blood Pressure - - Pulse 88 06/16/2007 8:22 PM CDT Temperature 37.1 ??C (98.7 ??F) 06/16/2007 8:22 PM CDT Respiratory Rate 20 06/16/2007 8:22 PM CDT Oxygen Saturation - - Inhaled Oxygen Concentration - - Weight 28.2 kg (62 lb 2 oz) 06/16/2007 8:22 PM CDT Height - - Body Mass Index - - documented in this encounter Progress Notes Carrol Sanchez - 06/20/2007 11:06 AM CDT Quick Note: Reviewed results with Dr. Ellis, the pts mom was contacted and advised of Dr. Ellis' recommendation-see telephone encounter. Lyly Sanchez RN Nadine Rodriguez - 06/16/2007 9:04 PM CDT SUBJECTIVE Nabila Serna is a 6 yr female here with mother, presenting with rash on vulvovaginal area. Her vulvular area is tender and red for 2-3 days. She has scant white mucoid discharge on vaginal area. The rash has spread to her inner thigh areas which now has a few tiny red bumps. No fever, no urinary urgency, no sore throat.. PMH: no UTI. She denies putting any foreign body into vaginal area. Current medications on record: Allergies: Review of patient's allergies indicates no known allergies. OBJECTIVE Vital Signs: Pulse 88 Temp (Src) 98.7 ??F (37.1 ??C) (Oral) Resp 20 Wt 62 lb 2 oz (28.18 kg) Appearance: healthy Abdomen: soft, without masses, distention, tenderness or organomegaly, bowel sounds normal, active and skin: diffuse tender erythematous macular rash on vulvular and vaginal areas. She has a few tiny red papules on bilat inner thighs. No sig vaginal discharge. Hymen intact. No bruise. Swab from vaginal area was sent for culture. Pending culture result. ASSESSMENT: vulvovaginitis: likely strep infection. PLAN: amoxil started. Discussed hygeine issure and siz bath. Exposed the vulvular area to air. Wear loose pants. Apply Desitin to rash. FU with pcp in a few days if symptoms not improved. Call for any new, worsening or persisting Sx. Nadine Rodriguez MD documented in this encounter Plan of Treatment Not on filedocumented as of this encounter Procedures Procedure Name Priority Date/Time Associated Diagnosis Comme nts WOUND CULTURE ONLY Routine 06/16/2007 8:59 PM Vaginitis and Re sults for this / SUPERFIC CDT Vulvovaginitis procedure are in the results section. documented in this encounter Results (ABNORMAL) WOUND CULTURE ONLY / SUPERFIC (06/16/2007 8:59 PM CDT) Component Value Ref Test Analysis Performed At [facility] Range Method Time Signature Specimen Vagina Swab [facility] Description Special Unspecified [facility] Requests Culture Few ??Staphylococcus aureus, Beta Lactam ase Positive. ??(Test indicates [facility] resistance to the Pen/Amp class of antibiotics.) Culture Many Skin [facility] Susie Report Status [facility] 06/20/2007 Specimen Anatomical Collection Method Collection Time Receive d Time (Source) Location / / Volume Laterality 06/16/2007 8:59 PM 8 9:01 CDT PM CDT Organism Antibiotic Method Susceptibility Few staphylococcus aureus, beta Amox/K Clavulanate <=2/1: Sensitive lactamase positive. (test indicates resistance to the pen/amp class of antibiotics.) (hannah ) Few staphylococcus aureus, beta Amox/K Clavulanate Susceptible: Sensitive lactamase positive. (test indicates resistance to the pen/amp class of antibiotics.) (hannah ) Few staphylococcus aureus, beta Cefazolin <=2: Sensitive lactamase positive. (test indicates resistance to the pen/amp class of antibiotics.) (hannah ) Few staphylococcus aureus, beta Cefazolin Susceptible: Sensitive lactamase positive. (test indicates resistance to the pen/amp class of antibiotics.) (hannah ) Few staphylococcus aureus, beta Clindamycin <=0.25: Sensitive lactamase positive. (test indicates resistance to the pen/amp class of antibiotics.) (hannah ) Few staphylococcus aureus, beta Clindamycin Susceptible: Sensitive lactamase positive. (test indicates resistance to the pen/amp class of antibiotics.) (hannah ) Few staphylococcus aureus, beta Erythromycin <=0.5: Sensitive lactamase positive. (test indicates resistance to the pen/amp class of antibiotics.) (hannah ) Few staphylococcus aureus, beta Erythromycin Susceptible: Sensitive lactamase positive. (test indicates resistance to the pen/amp class of antibiotics.) (hannah ) Few staphylococcus aureus, beta Linezolid 1: Sensitive lactamase positive. (test indicates resistance to the pen/amp class of antibiotics.) (hannah ) Few staphylococcus aureus, beta Linezolid Susceptible: Sensitive lactamase positive. (test indicates resistance to the pen/amp class of antibiotics.) (hannah ) Few staphylococcus aureus, beta Oxacillin <=0.25: Sensitive lactamase positive. (test indicates resistance to the pen/amp class of antibiotics.) (hannah ) Few staphylococcus aureus, beta Oxacillin Susceptible: Sensitive lactamase positive. (test indicates resistance to the pen/amp class of antibiotics.) (hannah ) Few staphylococcus aureus, beta Penicillin >8: Resistant lactamase positive. (test indicates resistance to the pen/amp class of antibiotics.) (hannah ) Few staphylococcus aureus, beta Penicillin Resistant lactamase positive. (test indicates resistance to the pen/amp class of antibiotics.) (hannah ) Few staphylococcus aureus, beta Tetracycline <=1: Sensitive lactamase positive. (test indicates resistance to the pen/amp class of antibiotics.) (hannah ) Few staphylococcus aureus, beta Tetracycline Susceptible: Sensitive lactamase positive. (test indicates resistance to the pen/amp class of antibiotics.) (hannah ) Few staphylococcus aureus, beta Trimeth/Sulfa <=0.5/9.5: Sensitive lactamase positive. (test indicates resistance to the pen/amp class of antibiotics.) (hannah ) Few staphylococcus aureus, beta Trimeth/Sulfa Susceptible: Sensitive lactamase positive. (test indicates resistance to the pen/amp class of antibiotics.) (hannah ) Few staphylococcus aureus, beta Vancomycin <=2: Sensitive lactamase positive. (test indicates resistance to the pen/amp class of antibiotics.) (hannah ) Few staphylococcus aureus, beta Vancomycin Susceptible: Sensitive lactamase positive. (test indicates resistance to the pen/amp class of antibiotics.) (hannah ) Few staphylococcus aureus, beta Beta Lactamase Positive: Resistant lactamase positive. (test indicates resistance to the pen/amp class of antibiotics.) (hannah ) Nadine Rodriguez MD LAB_2 Performing Organization Address City/State/ZIP Code Phon e Number [facility] [phone] [address] documented in this encounter Visit Diagnoses Diagnosis Vaginitis and vulvovaginitis - Primary Vaginitis and vulvovaginitis, unspecifie d Rash and nonspecific skin eruption Rash and other nonspecific skin eruption documented in this encounter Care Teams Unmanned Aircraft Systems Roboticist Relationship Specialty Start Date End Date Palmira Lim MD PCP - General 05/08/[address] [place] [address] documented as of this encounter
--- OUTSIDE RECORDS SUMMARY | 2021-12-08 10:30 | XMS_ITS | Encounter Summary ---
:1999 Author Organization [employer] Address [address] [place] [address] Care Team Providers Name Role Phone Palmira Lim MD Primary Care Provider Encounter Details Date Type Department Care Team Description 12/19/2006 Emergency Room External to [facility], LT E YE/PERIORBITAL Provider SWELLING/WOODWI NDS Social History Tobacco Use Types Packs/Day Years Used Date Smoking Tobacco: Passive Smoke Exposure - Never Smoker Comments: mom smokes Alcohol Use Standard Drinks/Week Comments Not Asked 0 (1 standard drink = 0.6 oz pure alcoho l) Sex Assigned at Date Recorded Female 09/14/2020 7:23 AM CDT documented as of this encounter Progress Notes [facility], Provider - 12/19/2006 12:00 AM CDT documented in this encounter Plan of Treatment Not on filedocumented as of this encounter Visit Diagnoses Not on filedocumented in this encounter Care Teams Net Architect Relationship Specialty Start Date End Date Palmira Lim MD PCP - General 05/08/[address] [place], [place] [address] documented as of this encounter
--- OUTSIDE RECORDS SUMMARY | 2021-12-08 10:30 | XMS_ITS | Encounter Summary ---
:1999 Author Organization [employer] Address [address] [place] [address] Care Team Providers Name Role Phone Diony Luque MD Primary Care Provider Encounter Details Date Type Department Care Team Description 07/02/2005 Correspondence None [facility], Provider parpi Social History Tobacco Use Types Packs/Day Years Used Date Smoking Tobacco: Passive Smoke Exposure - Never Smoker Comments: mom smokes Alcohol Use Standard Drinks/Week Comments Not Asked 0 (1 standard drink = 0.6 oz pure alcoho l) Sex Assigned at Date Recorded Female 09/14/2020 7:23 AM CDT documented as of this encounter Progress Notes Dakota Velázquez, Provider - 07/02/2005 12:00 AM CDT documented in this encounter Plan of Treatment Not on filedocumented as of this encounter Visit Diagnoses Not on filedocumented in this encounter Care Teams Pallet Rectifier Relationship Specialty Start Date End Date Diony Luque MD PCP - General 10/21/[address] [place] [address] documented as of this encounter
--- OUTSIDE RECORDS SUMMARY | 2021-12-08 10:30 | XMS_ITS | Encounter Summary ---
:1999 Author Organization [employer] Address [address] [place] [address] Care Team Providers Name Role Phone Diony Luque MD Primary Care Provider Reason for Visit Reason Onset Date Comments LEG PAIN 11/07/2004 right leg pain behin d knee Encounter Details Date Type Department Care Team Description 11/07/2004 Telephone [facility] Diony Luque MD LEG PAIN (right leg [address] pain behind knee) [place] [address] [place] [address] [phone] (Wo rk) Social History Tobacco Use Types Packs/Day Years Used Date Smoking Tobacco: Passive Smoke Exposure - Never Smoker Comments: mom smokes Alcohol Use Standard Drinks/Week Comments Not Asked 0 (1 standard drink = 0.6 oz pure alcoho l) Sex Assigned at Date Recorded Female 09/14/2020 7:23 AM CDT documented as of this encounter Nursing Notes 11/07/2004 11:59 PM CDT >> VIOLETA Quach Nov 07, 2004 2:21 PM Patient is limping on right leg since arriving home from kindergarten. c/o pain below the knee. Sa ys she 'fell' at school. No bruising, no laceration, no swelling. Walks on leg. Plan: Tylenol/Ibuprofen prn, observe. If patient is still limping in the morning, make appointment to be seen. Violeta Cardenas, RN >> ISAURO LAU Philomena Nov 07, 2004 1:21 PM right leg pain behind knee, came [facility], mom would like advise. documented in this encounter Plan of Treatment Not on filedocumented as of this encounter Visit Diagnoses Not on filedocumented in this encounter Care Teams Tuber Helper Relationship Specialty Start Date End Date Diony Luque MD PCP - General 10/21/04 05/07/06 [address] [place] [address] documented as of this encounter
--- OUTSIDE RECORDS SUMMARY | 2021-12-08 10:30 | XMS_ITS | Encounter Summary ---
:1999 Author Organization [employer] Address [address] [place] [address] Care Team Providers Name Role Phone Aislinn Arzate MD Primary Care Provider Encounter Details Date Type Department Care Team Description 08/14/2003 Correspondence None Unknown, [facility]ici an [facility]LEASE [address] [place] [address] (Wo rk) Social History Tobacco Use Types Packs/Day Years Used Date Smoking Tobacco: Never Assessed Sex Assigned at Date Recorded Female 09/14/2020 7:23 AM CDT documented as of this encounter Progress Notes Unknown, Physician - 08/14/2003 12:00 AM CDT documented in this encounter Plan of Treatment Not on filedocumented as of this encounter Visit Diagnoses Not on filedocumented in this encounter Care Teams Director Wholesale Relationship Specialty Start Date End Date Aislinn Arzate MD PCP - General 12/08/01 10/20/04 [address] [place] [address] documented as of this encounter
--- OUTSIDE RECORDS SUMMARY | 2021-12-08 10:30 | XMS_ITS | Encounter Summary ---
:1999 Author Organization [employer] Address [address] [place] [address] Care Team Providers Name Role Phone Palmira Lim MD Primary Care Provider Encounter Details Date Type Department Care Team Description 07/16/2005 Orders Only External to [facility] Unknown, Physici an [address] [place] [address] (Wo rk) Social History Tobacco Use Types Packs/Day Years Used Date Smoking Tobacco: Passive Smoke Exposure - Never Smoker Comments: mom smokes Alcohol Use Standard Drinks/Week Comments Not Asked 0 (1 standard drink = 0.6 oz pure alcoho l) Sex Assigned at Date Recorded Female 09/14/2020 7:23 AM CDT documented as of this encounter Procedure Notes [facility] - 07/16/2005 12:00 AM CDTAssociated Order(s): OUTSIDE IMAGE documented in this encounter Plan of Treatment Not on filedocumented as of this encounter Procedures Procedure Name Priority Date/Time Associated Diagnosis Comme nts OUTSIDE IMAGE 07/16/2005 12:00 AM Results for this CDT procedure are i n the results section . documented in this encounter Results OUTSIDE IMAGE (07/16/2005 12:00 AM CDT) Anatomical Region Laterality Modality Other Narrative 07/16/2005 12:00 AM CDT This result has an attachment that is no t available. Ordered by an unspecified provider. Transcriptions [facility] - 07/16/2005 12:00 AM CDT Physician Unknown DUMMY/OTHER/AR documented in this encounter Visit Diagnoses Not on filedocumented in this encounter Care Teams Group Home Paraprofessional Relationship Specialty Start Date End Date Palmira Lim MD PCP - General 05/08/06 [address], [place] [address] documented as of this encounter
--- OUTSIDE RECORDS SUMMARY | 2021-12-08 10:30 | XMS_ITS | Encounter Summary ---
:1999 Author Organization [employer] Address [address] [place] [address] Care Team Providers Name Role Phone Diony Luque MD Primary Care Provider Reason for Visit Reason Onset Date Comments FEVER 04/29/2005 Encounter Details Date Type Department Care Team Description 04/29/2005 Telephone Careline Cristine Acosta RN FEVER [address] [place], [place] [address] Social History Tobacco Use Types Packs/Day Years Used Date Smoking Tobacco: Passive Smoke Exposure - Never Smoker Comments: mom smokes Alcohol Use Standard Drinks/Week Comments Not Asked 0 (1 standard drink = 0.6 oz pure alcoho l) Sex Assigned at Date Recorded Female 09/14/2020 7:23 AM CDT documented as of this encounter Nursing Notes 04/29/2005 11:59 PM AIR QUALITY CHEMIST >> CRISTINE Sullivan Apr 29, 2005 12:22 AM TRIAGE REFERENCE: FEVER - PEDS CNG (c) 2004 STAT SYMPTOMS: None per guideline ASSESSMENT Temperature: 104.4 Route Rectal Onset: started during the day Appearance: how does child act after fever comes down? Unchanged Complaint of Pain: No, Intake: ok Output: ok Anyone else ill in the family: No, Other Symptoms: None PMH: healthy CURRENT MEDICATIONS: No MEDICATION ALLERGIES: No HOME TREATMENT: Discussed per guideline If onset of fever is just now, and temp 101 degrees F, recheck in 1hr *Acetaminophen for fever > than 102 degrees F if pt is uncomfortable *Ibuprofen for fever > than 102 degrees F if patient is uncomfortable PICK ONE OR THE OTHER AND USE SCHEDULE-DO NOT ALTERNATE *For fevers of 100-102 degrees F encourage cold fluids and dress lightly or if child uncomfortable i.e. achy, headache *Remove excess clothing, blankets, and dress lightly *Cool cloth to forehead alternative to sponging PLAN: PLAN: Recheck temp 1 hr after giving medication. CB if temp not down at least one degree. Arlet tor. CB if sx persists, worsen, or additional sx occur. Parent in agreement with Plan Ronny Acosta RN documented in this encounter Plan of Treatment Not on filedocumented as of this encounter Visit Diagnoses Not on filedocumented in this encounter Care Teams Senior Field Engineer Relationship Specialty Start Date End Date Diony Luque MD PCP - General 10/21/04 05/07/[address] [place] [address] documented as of this encounter
--- OUTSIDE RECORDS SUMMARY | 2021-12-08 10:30 | XMS_ITS | Encounter Summary ---
:1999 Author Organization [employer] Address [address] [place] [address] Care Team Providers Name Role Phone Palmira Lim MD Primary Care Provider Reason for Visit Reason Comments WELL CHILD EXAM Encounter Details Date Type Department Care Team Description 10/05/2006 Office Visit [facility] Palmira Lim Routine or [address] MD Child Health Check [place], [place] [id number] [address] (Primary Dx) [phone] [place], [place] [id number] Social History Tobacco Use Types Packs/Day Years [...] Sign Reading Time Taken Comments Blood Pressure 88/48 10/05/2006 9:00 AM CDT Pulse 80 10/05/2006 9:00 AM CDT Temperature 36.8 ??C (98.3 ??F) 10/05/2006 9:00 AM CDT Respiratory Rate - - Oxygen Saturation - - Inhaled Oxygen Concentration - - Weight 23.8 kg (52 lb 6 oz) 10/05/2006 9:00 AM CDT Height 118.1 cm (3' 10.5) 10/05/2006 9:00 AM CDT Tgmwsx-uvj-Cytmum Percentile 80.87 % 10/05/2006 9:00 AM CDT Growth Chart: [facility] (Girls, 2-20 Years) Body Mass Index 17.03 10/05/2006 9:00 AM CDT Body Mass Index Percentile 78.57 % 10/05/2006 9:00 AM CD T Growth Chart: [facility] (Girls, 2-20 Years) documented in this encounter Patient Instructions Patient Dylrrniqettq57/06/2007 9:12 AM CDT It has been a pleasure attending to Nabila's health maintenance needs today. documented in this encounter Progress Notes Palmira Lim P - 10/05/2006 9:12 AM CDT S> Nabila Serna is a 6 yr female who presents accompanied by her mother for routine school childcare attendant. PARENTAL/PATIENT CONCERNS: absent ----- SCHOOL Name: [employer] Grade: Entering 2nd Grade Success: Good ----- SPORTS/RECREATION/ACTIVITIES Sports: none Exercise: adequate Extracurricular Activities: none Recreation/Hobbies/TV: 1 hours/day screen time and reads daily ----- CARDIOVASCULAR RISK: none I have reviewed and updated the family, past and surgical history. ----- DAILY ACTIVITIES Nutrition: well balanced and varied diet, adequate milk intake Sleep: adequate sleep Dental Care: last dental visit within 6 months brushes daily ----- DEVELOPMENTAL ASSESSMENT: FAMILY/RELATIONSHIPS/COMMUNITY Current Living Situation: lives with parent(s) Family: no problems identified Peer: sociable, participates in organized activities Abuse: absent Mental Health Issues: None Active Support/Resources: Family/Friends ----- ENVIRONMENTAL RISKS Tuberculosis Screening: Not indicated ----- REVIEW OF SYSTEMS: Detailed review of systems including constitutional, skin, eyes, ENT, resp, CVS, GI & , revealed no abnormality except as detailed above. ----- O>BP 88/48 Pulse 80 Temp (Src) 98.3 ??F (36.8 ??C) (Tympanic) Ht 3' 11 (1.181 m) Wt 52 lbs 6.0 oz (23.757 kg) Normal Abnormal GENERAL: X HEENT: Head: X Eyes/Nose: X Ears: X Mouth/Pharynx: X NECK: X LYMPHATICS: X LUNGS: X CV: X ABDOMEN: X : X MS: X NEURO: X SKIN: X Some atopic derm VISION: Objective exam completed. No problems found. and Subjective assessment. No problems found Visual acuity screening: performed and documented in nurse's note. HEARING:Objective exam completed. No problems found. and Subjective assessment. No problems found Audiogram done CLAY STAGING: Clay Breast/Genital Stage 1: preadolescent Clay Pubic Hair Stage 1: preadolescent A> Healthy child. P> Per orders and patient instructions. Counseling: Immunizations: no immunizations given today. Social: increased responsibility Parenting: increased autonomy in decision making Nutrition: age specific nutritional needs Play and communication: organized sports/regular exercise and appropriate use of TV/video games (total Screen Time) Health: adequate rest at night Dental: Reinforced need for regular brushing and flossing. Emphasized need for annual dental exam by a licensed dentist. Safety: seat belts Follow-up: Next preventive health care visit in 2 years documented in this encounter Nursing Notes 10/05/2006 9:00 AM CDT >> Neelam Delgadillo CMA ThuOct 05, 2006 9:25 AM Eye exam: L: 20/ 25, R: 20/ 20 Lenses: NO audiogram results: Right:[id number] 20 2000 20 4000 20 Left: [phone] 20 2000 20 4000 20 Neelam Delgadillo CMA documented in this encounter Plan of Treatment Not on filedocumented as of this encounter Visit Diagnoses Diagnosis Routine infant or child health check - P rimary documented in this encounter Care Teams Loom Cleaner Relationship Specialty Start Date End Date Palmira Lim MD PCP - General 05/08/[address] [place] [address] documented as of this encounter
--- OUTSIDE RECORDS SUMMARY | 2021-12-08 10:30 | XMS_ITS | Encounter Summary ---
:1999 Author Organization [employer] Address [address] [place] [address] Care Team Providers Name Role Phone Diony Luque MD Primary Care Provider Reason for Visit Reason Comments FEVER 3 day fever 102. Encounter Details Date Type Department Care Team Description 04/30/2005 Office Visit [facility] Emma Park MD STREP SORE THROAT (Primary Dx); [address] [place] [address] [facility] [phone] [place], [place] [address] Social History Tobacco Use Types Packs/Day Years [...] Taken Comments Blood Pressure - - Pulse 83 04/30/2005 3:20 PM RESORT KEEPER Temperature 36.2 ??C (97.2 ??F) 04/30/2005 3:20 PM RESORT KEEPER Respiratory Rate 24 04/30/2005 3:20 PM RESORT KEEPER Oxygen Saturation 100% 04/30/2005 3:20 PM RESORT KEEPER Inhaled Oxygen Concentration - - Weight 19.4 kg (42 lb 12.8 oz) 04/30/2005 3:20 PM RESORT KEEPER Height - - Body Mass Index - - documented in this encounter Progress Notes 04/30/2005 3:20 PM RESORT KEEPER This office note has been dictated. MD Xavier Rivera Janice C - 04/30/2005 12:00 AM CSTS: Nabila is 4 years of age, comes in because she's had fevers for the last three days now, up to 104.4. Earlier today she had 102. She went to school, but mom had to come pick her up. She's had no URI symptoms, no sore throat, hasn't had problems with nausea or vomiting, no diarrhea, no abdominal pain. She kind of gets very tired when she has a high fever, but mom gives her Ibuprofen and she perks up and starts to play. She has not been eating well, but she's been drinking, no problems with bowel movements or urination.O: On exam, she is awake, alert, not in any distress. Her temperature here is 97.2. Her TMs look good, nares clear, pharynx clear, neck supple. No lymphadenopathy. Lungs are clear, heart regular rate with no murmur. Abdomen soft, pulses full, equal, brisk. We did a CBC that showed a high white count of 16.9, with normal hemoglobin and normal platelets, and because the white count was high, we decided to do a strep test that came back positive.IMPRESSION: Strep pharyngitis. PLAN: Amoxicillin, for ten days; anticipate improvement within 28 to 48 hours. If not, mom will let us know. Return if symptoms worsen or persist. P cc: RT KEEPER documented in this encounter Plan of Treatment Not on filedocumented as of this encounter Procedures Procedure Name Priority Date/Time Associated Diagnosis Comme nts STREP GRP A, RAPID Waiting 04/30/2005 5:38 PM Strep Sore Throa t Results for this SCREEN RESORT KEEPER procedure are i n the results section. COMPLETE BLOOD Waiting 04/30/2005 4:26 PM Fever Results for this COUNT-W/DIFF RESORT KEEPER procedure are i n the results section. documented in this encounter Results (ABNORMAL) STREP GRP A, RAPID SCREEN (04/30/2005 5:38 PM RESORT KEEPER) Patholo gist Method Time Signature Patient Home None [facility] Phone # Patient Work None [facility] Phone # Grp A Rapid Positive [facility] Screen (A) Specimen Anatomical Collection Method Collection Time Receive d Time (Source) Location / / Volume Laterality 04/30/2005 5:38 PM 6 5:39 RESORT KEEPER PM RESORT KEEPER Emma Park MD LAB_1 Performing Organization Address City/State/ZIP Code Phon e Number [facility] [phone] [facility] [address] [address] (ABNORMAL) HEMOGRAM/PLTS/DIFF (04/30/2005 4:26 PM RESORT KEEPER) P athologist Signature WBC 16.9 (H) 5.0 - 14.5 [facility] k/ul Comment: All Parameters Rechecked RBC 4.47 3.9 - 5.3 M/ul [facility] Hemoglobin 11.9 11.5 - 13.5 g/dl [facility] HCT 34.2 34.0 - 40.0 % [facility] MCV 76.4 75 - 87 fl [facility] MCH 26.6 24 - 30 pg [facility] MCHC 34.8 32 - 36 % [facility] RDW 13.0 11.5 - 15.0 % [facility] Platelets 273 150 - 450 k/ul [facility] PMN/Band 80 (H) 32 - 64 % [facility] Lymph 14 (L) 28 - 48 % [facility] Elliott 5 4 - 12 % [facility] Eos 1 0 - 8 % [facility] Baso 0 0 - 1 % [facility] Neutrophil Absolute 13.5 (H) 1.5 - 8.5 k/ul [facility] Lymph Absolute 2.4 2.0 - 8.0 k/ul [facility] Elliott Absolute 0.8 0.0 - 1.0 k/ul [facility] Eos Absolute 0.2 0.0 - 0.5 k/ul [facility] Baso Absolute 0.0 0.0 - 0.2 k/ul [facility] Morphology N/N [facility] Specimen Anatomical Collection Method Collection Time Receive d Time (Source) Location / / Volume Laterality 04/30/2005 4:26 PM 4:27 RESORT KEEPER PM RESORT KEEPER Emma Park MD LAB_1 Performing Organization Address City/State/ZIP Code Phon e Number [facility] [phone] [facility] [address] [address] documented in this encounter Visit Diagnoses Diagnosis Streptococcal sore throat - Primary Fever and other physiologic disturbances of temperature regulation documented in this encounter Care Teams Finding Fastener Relationship Specialty Start Date End Date Diony Luque MD PCP - General 10/21/04 05/07/06 [address] [place], [place] [id number] documented as of this encounter
--- OUTSIDE RECORDS SUMMARY | 2021-12-08 10:30 | XMS_ITS | Encounter Summary ---
:1999 Author Organization [employer] Address [address] [place] [address] Care Team Providers Name Role Phone Palmira Lim MD Primary Care Provider Encounter Details Date Type Department Care Team Description 06/25/2006 Correspondence External to External, Provid er HEALTH CARE [place] [address] Social History Tobacco Use Types Packs/Day Years Used Date Smoking Tobacco: Passive Smoke Exposure - Never Smoker Comments: mom smokes Alcohol Use Standard Drinks/Week Comments Not Asked 0 (1 standard drink = 0.6 oz pure alcoho l) Sex Assigned at Date Recorded Female 09/14/2020 7:23 AM CDT documented as of this encounter Progress Notes External, Provider - 06/25/2006 12:00 AM CDT documented in this encounter Plan of Treatment Not on filedocumented as of this encounter Visit Diagnoses Not on filedocumented in this encounter Care Teams Fire Apparatus Engineer Relationship Specialty Start Date End Date Palmira Lim MD PCP - General 05/08/[address] [place], [place] [address] documented as of this encounter
--- OUTSIDE RECORDS SUMMARY | 2021-12-08 10:30 | XMS_ITS | Encounter Summary ---
:1999 Author Organization [employer] Address [address] [place] [address] Care Team Providers Name Role Phone Aislinn Arzate MD Primary Care Provider Reason for Visit Reason Comments INJURY, HAND Encounter Details Date Type Department Care Team Description 09/19/2002 Telephone Careline Esperanza Monaco RN INJURY, HAND [address] [place], [place] [address] Social History Tobacco Use Types Packs/Day Years Used Date Smoking Tobacco: Never Assessed Sex Assigned at Date Recorded Female 09/14/2020 7:23 AM CDT documented as of this encounter Nursing Notes 09/19/2002 11:59 PM CDT >> ESPERANZA MONACO [facility] Sep 19, 2002 3:58 PM >> CALL RECEIVED. Contact: [phone] CONCERN: Mother on phone, child had hand caught when window closed. Lacerations across three fingers on right hand middle, ring and pinky, bleeding controlled. Occurred ten minutes ago TRIAGE REFERENCE: FINGER/THUMB TRAUMA - TRAUMA CNG (c) 2003 STAT SYMPTOMS: None per guideline. ASSESSMENT: Alignment: intact. CMS: intact, able to make fist. Pain: Moderate and Severe First aid tried: using ice, pressure held bleeding controlled Mother describes cuts as minor Other symptoms are ecchymosis. HOME TREATMENT: EDEMA - soak in cold water for 20 minutes, out for 40 minutes, three times, ABRASION - gently wash with soap and water, Follow up with clinic if unable to use the finger normally following, Home treatment PLAN: Home treat & monitor symptoms, call back if they increase or if concerns, if pain not impr gee with ice/rest, child not using hand normally, or fingers become cool or pale, child to be evalu ated tonight. Mother states understanding and agrees with plan. documented in this encounter Plan of Treatment Not on filedocumented as of this encounter Visit Diagnoses Not on filedocumented in this encounter Care Teams Live Out Nanny Relationship Specialty Start Date End Date Aislinn Arzate MD PCP - General 12/08/01 10/20/04 [address] [place] [address] documented as of this encounter
--- OUTSIDE RECORDS SUMMARY | 2021-12-08 10:30 | XMS_ITS | Encounter Summary ---
:1999 Author Organization [employer] Address [address] [place] [address] Care Team Providers Name Role Phone Aislinn Arzate MD Primary Care Provider Encounter Details Date Type Department Care Team Description 08/14/2003 Office Visit [facility] Kay Bhatt FAMILY HX-EYE DISORD NEC; [address] [place]OP[place]; [place] [address] [facility] [phone] Social History Tobacco Use Types Packs/Day Years Used Date Smoking Tobacco: Never Assessed Sex Assigned at Date Recorded Female 09/14/2020 7:23 AM CDT documented as of this encounter Progress Notes Kay Bhatt - 08/14/2003 12:00 AM CDT documented in this encounter Plan of Treatment Not on filedocumented as of this encounter Visit Diagnoses Diagnosis Family history of other eye disorders Hypermetropia Astigmatism, unspecified documented in this encounter Care Teams Forest Ecologist Relationship Specialty Start Date End Date Aislinn Arzate MD PCP - General 12/08/01 10/20/04 [address] [place] [address] documented as of this encounter
--- OUTSIDE RECORDS SUMMARY | 2021-12-08 10:30 | XMS_ITS | Encounter Summary ---
:1999 Author Organization [employer] Address [address] [place] [address] Care Team Providers Name Role Phone Palmira Lim MD Primary Care Provider Reason for Visit Reason Onset Date Comments LAB RESULTS 06/20/2007 Encounter Details Date Type Department Care Team Description 06/20/2007 Telephone [facility] Carrol Perez, LAB RESULTS [address] [place] [address] [phone] [place] [address] Social History Tobacco Use Types Packs/Day Years Used Date Smoking Tobacco: Passive Smoke Exposure - Never Smoker Comments: mom smokes Alcohol Use Standard Drinks/Week Comments Not Asked 0 (1 standard drink = 0.6 oz pure alcoho l) Sex Assigned at Date Recorded Female 09/14/2020 7:23 AM CDT documented as of this encounter Nursing Notes Carrol Sanchez - 06/20/2007 10:58 AM CDT Reviewed the wound culture results with Dr. Ellis. Per Dr. Ellis, the amoxicillin should be okay and there is no need to make a change in the medication. The pts family should be contacted to verify that the rash is improving and if it is not improving than the pt should see her pcp tomorrow. If therash resolves than there is no need to fu with her pcp. Call to pts mom, Twila, she said that the pts rash is doing much better. I encouraged her have her dtr fu with her pcp if the rash does not resolve. She verbalized understanding of the plan. Lyly Sanchez RN documented in this encounter Plan of Treatment Not on filedocumented as of this encounter Visit Diagnoses Not on filedocumented in this encounter Care Teams Entrance Guard Relationship Specialty Start Date End Date Palmira Lim MD PCP - General 05/08/[address] [place] [address] documented as of this encounter
--- OUTSIDE RECORDS SUMMARY | 2021-12-08 10:30 | XMS_ITS | Encounter Summary ---
:1999 Author Organization [employer] Address [address] [place] [address] Care Team Providers Name Role Phone Aislinn Arzate MD Primary Care Provider Reason for Visit Reason Comments LICE,HEAD Encounter Details Date Type Department Care Team Description 09/17/2002 Telephone Careline Brando Diallo RN LICE,HEAD [address] AFTER HOURS CARE [place], [place] [address] [phone] [place] [address] 14 Social History Tobacco Use Types Packs/Day Years Used Date Smoking Tobacco: Never Assessed Sex Assigned at Date Recorded Female 09/14/2020 7:23 AM CDT documented as of this encounter Nursing Notes 09/17/2002 11:59 PM CDT >> LYLA DIALLO Sat Sep 17, 2002 2:21 PM called to [facility] >> LYLA DIALLO Sat Sep 17, 2002 1:47 PM >> CALL RECEIVED. Contact: [facility] [phone] GUIDELINE: LICE HEAD - PEDS CNG (c) 2003 CONCERN:live head lice ASSESSMENT: Symptoms: Lice seen on head, Scalp itching, History of head lice: YES: school year, Exposed to headlice, Mature hair lice are 2-4mm bugs (sesame seed size) that cause itching and sores Home treatment: HOME TREATMENT: Home treatment discussed per guideline:, All family members & those sharing home except infants should be treated;, use NON-conditioning shampoo prior to using NIX (ex: prell, babyshampoo);, towel dry after shampoo till hair is barely damp (product is diluted by, putting on wet hair);, Use a full 2 oz Nix per head or 1 small bottle; use 3-4 ozs if hair is, extremely long or t hick. Rinse with cool water;, Use a timer to be sure NIX is on the head for afull 10 MINUTES. This is a, long time if you are actually timing it. Do not wash hair for 1-2 days, after treatment., Add itional rinses such as vinegar should NOT be used; this interferes with the, NIX remaining on the preston ir shaft;, Comb out nits with a fine toothed comb; repeat NIX 1 week later;, nits seen more than 1/2 inch from scalp are or empty egg cases, don't overuse pediculocides, severe scalp dermatitis h as been caused by too, frequent treatment., Tornado oil or mayonaise can be used instead of a pediculi cide, Apply olive oil or mayonaise to the head at bedtime, (wear a shower cap so the oil does not co me off), Comb out nits with a fine toothed comb or hand pick each nit; or the, individual strands of hair may be clipped with a manicure scissors;, Check all family members for 2 weeks after treatment and treat as needed;, Life cycle is 30 days and in 24 hr without a host., Live lice seen a few days after tr. are to be considered reinfestation., Pts. need to understand they can get lice again and again,and treatment of lice, does not prevent reinfestation, All delgado, brushes and similar it ems must bedisinfected by either washing with, soap and water or by heating in water of at least 13 0 degrees for 10 minutes;, Blankets, sheets, pillow cases and clothing should be washed in hot water ;, Non-washable items can be put in dryer on high heat for at least 20 minutes,, or place in an air tight bag orcontainer for two weeks, or expose to extreme, cold for 48 hours (freezer, cold air or in snow); vacuum furniture and carpet., Not recommended if ; must apply to dry hair; PLAN: call to dr. méndez at 145p documented in this encounter Plan of Treatment Not on filedocumented as of this encounter Visit Diagnoses Not on filedocumented in this encounter Care Teams Supervisor Cook House Relationship Specialty Start Date End Date Aislinn Arzate MD PCP - General 12/08/01 10/20/04 [address] [place] [address] documented as of this encounter
--- OUTSIDE RECORDS SUMMARY | 2021-12-08 10:30 | XMS_ITS | Encounter Summary ---
:1999 Author Organization [employer] Address [address] [place] [address] Care Team Providers Name Role Phone Aislinn Arzate MD Primary Care Provider Reason for Visit Reason Onset Date Comments LICE,HEAD 01/14/2004 Encounter Details Date Type Department Care Team Description 01/14/2004 Telephone Careline Camilla Renae RN LICE,HEAD [address] [place], [place] [address] [place] [address] [phone] Social History Tobacco Use Types Packs/Day Years Used Date Smoking Tobacco: Never Assessed Sex Assigned at Date Recorded Female 09/14/2020 7:23 AM CDT documented as of this encounter Nursing Notes 01/14/2004 11:59 PM DENSITOMETER READER >> CAMILLA PUENTE Sun Jan 14, 2004 5:36 PM >> COMPLETED ON Sun Jan 14, 2004 5:40 PM TRIAGE GUIDELINE: LICE HEAD - PEDS CNG (c) 2003 CONCERN: Pt has live lice and mom would like treatment for pt and 7 family members. ASSESSMENT: Symptoms: Lice seen on head HOME TREATMENT: Home treatment discussed per guideline:, [...] sure NIX is on the head for a full 10 MINUTES. This is a, long time if you are actually timing it. Do not wash hair for 1-2 days, after treatment., Add itional rinses such as vinegar should NOT be used; this interferes with the, NIX remaining on the preston ir shaft;, Comb out nits with a fine toothed comb; repeat NIX 1 week later;, nits seen more than 1/2 inchfrom scalp are or empty egg cases, don't overuse pediculocides, severe scalp dermatitis h as been caused by too, frequent treatment., Comb out nits with a fine toothed comb or hand pick each nit; or the, individual strands of hair may be clipped with a manicure scissors;, Check all family membersfor 2 weeks after treatment and treat as needed;, Life cycle is 30 days and in 24 hr wi thout a host., Live lice seen a few days after tr. are to be considered reinfestation., Pts. need to understand they can get lice again and again, and treatment of lice, does not prevent reinfestation , All delgado, brushes and similar items must be disinfected by either washing with, soap and water or by heating in water of at least 130 degrees for 10 minutes;, Blankets, sheets, pillow cases and tru thing should be washed in hot water;, Non-washable items can be put in dryer on high heat for at ladonna st 20 minutes,, or place in an air tight bag or container for two weeks, or expose to extreme, cold for 48 hours (freezer, cold air or in snow); vacuum furniture and carpet., CONSIDERATIONS:, Permeth rin (Nix): otc, is 70%-80% ovicidal, leaves an active residue on scalp,, it has no reported adverse properties, it can be used on infants over 2 months, old, nursing mothers and women; PLAN: Consulted Dr Shiv Beisang III 5:27 PM with cb 5:31 PM. He stated pt could get nix 2 oz with one refill for retreatment in a week. documented in this encounter Plan of Treatment Not on filedocumented as of this encounter Visit Diagnoses Not on filedocumented in this encounter Care Teams Resistance Welding Machine Operator Relationship Specialty Start Date End Date Aislinn Arzate MD PCP - General 12/08/01 10/20/04 [address] [place], [place] [id number] documented as of this encounter
--- OUTSIDE RECORDS SUMMARY | 2021-12-08 10:30 | XMS_ITS | Encounter Summary ---
:1999 Author Organization [employer] Address [address] [place] [address] Care Team Providers Name Role Phone Diony Luque MD Primary Care Provider Reason for Visit Reason Comments SHOT,FLU Encounter Details Date Type Department Care Team Description 04/16/2006 Office Visit [facility] Need for Pr ophylactic Department Vaccination and [address] [place] [address] Influenza (Primary Dx) [phone] Social History Tobacco Use Types Packs/Day Years Used Date Smoking Tobacco: Passive Smoke Exposure - Never Smoker Comments: mom smokes Alcohol Use Standard Drinks/Week Comments Not Asked 0 (1 standard drink = 0.6 oz pure alcoho l) Sex Assigned at Date Recorded Female 09/14/2020 7:23 AM CDT documented as of this encounter Progress Notes Iliana Bradshaw - 04/16/2006 4:49 PM CST SUBJECTIVE: Nabila Serna is a 5 yr old female here for a flu shot. Severe allergy to eggs: no Severe allergy to latex (Does not apply to persons receiving Fluzone vaccine): no Previous severe reaction to influenza vaccine: no Severe reaction to thimerosal (Does not apply to persons receiving Fluzone 100% Preservative-free vaccine): no Recent onset of major neurological problem: no Ill appearing with increased respiratory rate, moderate fever (>101.0 F), and increased heart rate: no NOTE: a moderate illness such as otitis, sinusitis or URI accompanied by a fever up to 102.0 isnot a contraindication to immunization. History of bleeding problem: no History of Guillian [place] within 6 weeks of receiving an influenza immunization: no (If YES to any of the above, consult MD) OBJECTIVE: Temp (only if ill today): no ASSESSMENT: Eligible for flu vaccine today: YES PLAN: Administer vaccine: Education: discussed possible side effects and provided health education materials. Iliana Bradshaw CMA 04/16/2006 4:49 PM NCIAL COMPLIANCE OFFICER documented in this encounter Plan of Treatment Not on filedocumented as of this encounter Visit Diagnoses Diagnosis Need for prophylactic vaccination and in oculation against influenza - Primary documented in this encounter Care Teams Associate Professor Of Communication Relationship Specialty Start Date End Date Diony Luque MD PCP - General 10/21/04 05/07/06 [address] [place] [address] documented as of this encounter
--- OUTSIDE RECORDS SUMMARY | 2021-12-08 10:30 | XMS_ITS | Encounter Summary ---
:1999 Author Organization [employer] Address [address] [place] [address] Care Team Providers Name Role Phone Diony Luque MD Primary Care Provider Reason for Visit Reason Comments Sore Throat since yesterday COLD, NOS stuffy nose and cough since yesterday Encounter Details Date Type Department Care Team Description 04/16/2005 Office Visit [facility], Emma Chacon MD ACUTE PHARYNGITIS(SORE THROAT) (Primary Dx); [address] [place] [address] [facility] [phone] [place], [place] [address] Social History Tobacco Use Types Packs/Day Years [...] Pressure - - Pulse - - Temperature 37.1 ??C (98.8 ??F) 04/16/2005 1:00 PM SAMPLE WORKER Respiratory Rate - - Oxygen Saturation - - Inhaled Oxygen Concentration - - Weight 18.7 kg (41 lb 2 oz) 04/16/2005 1:00 PM SAMPLE WORKER Height - - Body Mass Index - - documented in this encounter Progress Notes 04/16/2005 1:00 PM SAMPLE WORKER SUBJECTIVE: Nabila Serna is a 4 yr female here with mother and sibling (Lisa) with a sore throat. Onset 2 day(s) ago. Associated symptoms congestion, coryza and cough. Known Strep Exposure: none Appetite still good. Still active. Slept well. No fever Current Medications: There are no current hospital/outpatient medications on file Allergies: Review of patient's allergies indicates no known allergies. OBJECTIVE: Temp (Src) 98.8 (Tympanic) Wt 41 lbs 2.0 oz (18.7kg) Appearance: healthy, alert, in no distress Ears: both external canals and tympanic membranes free of lesions or abnormalities Nose: clear rhinorrhea Oropharynx:mild erythema Neck: supple and small bilateral cervical adenopathy Lungs: clear to auscultation, no wheezes, no rales or rhonchi Heart: regular rate and rhythm, normal S1 and S2 without murmur or click Abdomen: normal Skin clear TESTS: Rapid Strep Screen: negative Bergen spot: not indicated ASSESSMENT: viral pharyngitis PLAN: Medications: Antibiotics not indicated at this time. Patient Instructions: Tylenol or Ibuprofen for comfort or fever. Encourage fluids. Diet as tolerated. Call if symptoms persist or worsen. Emma Park MD documented in this encounter Plan of Treatment Not on filedocumented as of this encounter Procedures Procedure Name Priority Date/Time Associated Diagnosis Comme nts STREP GRP A, RAPID Waiting 04/16/2005 1:44 PM Acute Res ults for this SCREEN SAMPLE WORKER Pharyngitis(Sore procedure a re in Throat) the results section. documented in this encounter Results STREP GRP A, RAPID SCREEN (04/16/2005 1:44 PM SAMPLE WORKER) [facility] Method Time Signature Patient Home None [facility] Phone # Patient Work None [facility] Phone # Grp A Rapid Negative [facility]G [facility] Screen Grp A Culture Negative [facility]G [facility] Final Specimen Anatomical Collection Method Collection Time Receive d Time (Source) Location / / Volume Laterality 04/16/2005 1:44 PM 6 1:45 SAMPLE WORKER PM SAMPLE WORKER Emma Park MD LAB_1 Performing Organization Address City/State/ZIP Code Phon e Number [facility] [phone] [facility] [address] [address] documented in this encounter Visit Diagnoses Diagnosis Acute pharyngitis - Primary Acute upper respiratory infections of un specified site documented in this encounter Care Teams Tool Clerk Relationship Specialty Start Date End Date Diony Luque MD PCP - General 10/21/04 05/07/06 [address] [place], [place] [id number] documented as of this encounter
--- OUTSIDE RECORDS SUMMARY | 2021-12-08 10:30 | XMS_ITS | Encounter Summary ---
:1999 Author Organization [employer] Address [address] [place] [address] Care Team Providers Name Role Phone Diony Luque MD Primary Care Provider Encounter Details Date Type Department Care Team Description 07/16/2005 Emergency Room External to [facility], [facility] Provider Social History Tobacco Use Types Packs/Day Years Used Date Smoking Tobacco: Passive Smoke Exposure - Never Smoker Comments: mom smokes Alcohol Use Standard Drinks/Week Comments Not Asked 0 (1 standard drink = 0.6 oz pure alcoho l) Sex Assigned at Date Recorded Female 09/14/2020 7:23 AM CDT documented as of this encounter Progress Notes [facility], Provider - 07/16/2005 12:00 AM CDT documented in this encounter Plan of Treatment Not on filedocumented as of this encounter Visit Diagnoses Not on filedocumented in this encounter Care Teams Brand Marketing Intern Relationship Specialty Start Date End Date Diony Luque MD PCP - General 10/21/04 05/07/06 [address] [place] [address] documented as of this encounter
--- OUTSIDE RECORDS SUMMARY | 2021-12-08 10:30 | XMS_ITS | Encounter Summary ---
:1999 Author Organization [employer] Address [address] [place] [address] Care Team Providers Name Role Phone Diony Luque MD Primary Care Provider Reason for Visit Reason Comments WELL CHILD EXAM Encounter Details Date Type Department Care Team Description 11/06/2004 Office Visit [facility] RadhaDhruv, EFRAIN MILLER CHILD HEALTH EXAM (Primary Dx); Practice MD VACCINE FOR IPV (POLIOMYELITIS); [address] [facility] VACCINE [id number] ; [place] [address] DRIVE VACCINE FOR DTP [phone] [place] [address] (Wo rk) Social History Tobacco Use Types [...] Sign Reading Time Taken Comments Blood Pressure 88/58 11/06/2004 3:30 PM CDT Pulse - - Temperature 36.5 ??C (97.7 ??F) 11/06/2004 3:30 PM CDT Respiratory Rate - - Oxygen Saturation - - Inhaled Oxygen Concentration - - Weight 18 kg (39 lb 9.6 oz) 11/06/2004 3:30 PM CDT Height 104.1 cm (3' 5) 11/06/2004 3:30 PM CDT Rukihm-khf-Qcyscr Percentile 78.66 % 11/06/2004 3:30 PM CDT Growth Chart: [facility] (Girls, 2-20 Years) Body Mass Index 16.56 11/06/2004 3:30 PM CDT Body Mass Index Percentile 81.62 % 11/06/2004 3:30 PM CD T Growth Chart: [facility] (Girls, 2-20 Years) documented in this encounter Patient Instructions Patient Jvxqnnfmnccg19/07/2005 3:00 PM CDT It has been a pleasure attending to Nabila's health maintenance needs today. documented in this encounter Progress Notes 11/06/2004 3:00 PM CDT S> Nabila Serna is a 4 yr female who presents accompanied by mother for well child development teacher. PARENTAL CONCERNS: None Daycare/Preschool/School: School: Name: [employer], grade: Kindergarten Patient's family history None on file Social History not on file ----- DAILY ACTIVITIES Feeding/Nutrition: Adequate milk intake, 1% Cow's Milk, Fluoridated water, Well-balanced, appropriate for age Sleep: sleeps through night., alone in crib or bed, dry at night, not snoring Dental: Last dental visit within 6 months Brushes daily Recreation/TV: 1 hours/day screen time and parent reading to child Family Circumstances: Principal Caregivers: mother and father Stresses for Caregivers none Active Support/Resources: [place] ----- ENVIRONMENTAL RISKS: none. ----- REQUIRED TESTING: Tuberculosis Screening: Not indicated Carolin Mueller LPN ----- DEVELOPMENTAL MILESTONES: [place] Developmental Screening passed for age. Goes to the toilet without help Swings on swing, pumping by self Prints first name (four letters) Tells meaning of familiar words ----- REVIEW OF SYSTEMS: Detailed review of systems including constitutional, skin, eyes, ENT, resp, CVS, GI & , revealed no abnormaility except as detailed above. O> BP 88/58 Temp (Src) 97.7 (Tympanic) Ht 3' 5 (1.04m) Wt 39 lbs 10 oz (18.0kg) GENERAL: well-developed, well-nourished child who behaves age appropriately.. Parent/Child Interaction(Observed): appropriate Skin: no abnormalities noted HEENT: Head: normocephalic Eyes: cross cover test normal Ears: external canals and tympanic membranes normal Mouth/Pharynx: no dental abnormalities, tonsils not enlarged NECK: full range of motion LYMPHATICS: no significant adenopathy LUNGS: clear to auscultation, no wheezes, rales or rhonchi CV: regular rhythm, no murmurs, femoral pulses present ABDOMEN: soft, without masses, distention or organomegaly : normal female prepubertal external genitalia MS: no torsional deformities NEURO: gait normal, muscle tone normal VISION: Subjective assessment. No problems found Visual acuity screening: performed and documented in nurse's note. HEARING: Subjective assessment. No problems found A> Healthy child. P> Per orders. COUNSELING: Immunizations: Discussed risks, benefits and side effects of immunizations given today. Social: family activities Parenting: positive reinforcement Nutrition: offer wide variety of foods Play and communication: amount and type of screen time Health:good physical fitness habits Dental: Stressed need for regular visits to licensed dentist. Safety: no safety issues identified Follow-up:Next preventive health care visit in 1 year Dhruv Garcia MD documented in this encounter Nursing Notes 11/06/2004 3:00 PM CDT >> CAROLIN MUELLER 11/06/2004 3:35 pm Eye exam: L: 20/ 25 -2, R: 20/ 25 -2 Lenses: NO audiogram results: Right:297 68 6432 15 2000 15 4000 5 Left: 796 99 0400 20 2000 25 4000 20 Carolin Mueller LPN documented in this encounter Plan of Treatment Not on filedocumented as of this encounter Visit Diagnoses Diagnosis Routine infant or child health check - P rimary Need for prophylactic vaccination and in oculation against poliomyelitis Need for prophylactic vaccination with m orsdpj-wypse-vzorxwo (MMR) vaccine Need for DTP vaccine Need for prophylactic vaccination with c ombined nvsreyijto-foyuaoi-nqocogvte (DTP) vaccine documented in this encounter Care Teams Manufacturing Team Member Relationship Specialty Start Date End Date Diony Luque MD PCP - General 10/21/04 05/07/[address] [place] [address] documented as of this encounter
--- OUTSIDE RECORDS SUMMARY | 2021-12-08 10:30 | XMS_ITS | Encounter Summary ---
:1999 Author Organization [employer] Address [address] [place] [address] Care Team Providers Name Role Phone Palmira Lim MD Primary Care Provider Reason for Visit Reason Onset Date Comments EYE WATERING 12/19/2006 SWELLING, EYELIDS 12/19/2006 Encounter Details Date Type Department Care Team Description 12/19/2006 Telephone Careline Emily Hinson RN EYE WATERING; SWELLING, [address] [place], [place] [address] Social History Tobacco Use Types Packs/Day Years Used Date Smoking Tobacco: Passive Smoke Exposure - Never Smoker Comments: mom smokes Alcohol Use Standard Drinks/Week Comments Not Asked 0 (1 standard drink = 0.6 oz pure alcoho l) Sex Assigned at Date Recorded Female 09/14/2020 7:23 AM CDT documented as of this encounter Nursing Notes Emily Hinson - 12/19/2006 2:32 PM CDT [address] her [address] with pt to the [facility], she is 5 blocks away from clinic but states the wait time is 45 min., asking if she should have her seen somewhere else? She was outside playing and when she came inside her lt eye seems swollen, almost twice the normalsize, watery and upper and lower eyelids are swollen No vision changes Plan: she is so close to the [facility] she should have her seen there now. Emily Hinson RN documented in this encounter Plan of Treatment Not on filedocumented as of this encounter Visit Diagnoses Not on filedocumented in this encounter Care Teams Ruling Technician Relationship Specialty Start Date End Date Palmira Lim MD PCP - General 05/08/[address] [place] [address] documented as of this encounter
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
[2021-12-08] MEDS: 0.9 % SODIUM CHLORIDE 1000 ml 1,000 ML IV (10:31)
--- OUTSIDE RECORDS SUMMARY | 2021-12-08 10:31 | XMS_ITS | Encounter Summary ---
:1999 Author Organization [facility] Address [address] [place] [address] Care Team Providers Name Role Phone Palmira Lim MD Primary Care Provider Reason for Visit Reason Comments SKIN DISCOLORATION Encounter Details Date Type Department Care Team Description 05/12/2000 Telephone Careline Cristine Farrell, SKIN DISCOLORATION [address] [place], [place] [address] [facility] [phone] [facility] [address] Social History Tobacco Use Types Packs/Day Years Used Date Smoking Tobacco: Never Assessed Sex Assigned at Date Recorded Female 09/14/2020 7:23 AM CDT documented as of this encounter Nursing Notes 05/12/2000 11:59 PM FORENSIC SPECIALIST >> CRISTINE Sullivan May 12, 2000 8:08 PM >> CALL RECEIVED. Contact: mother Mother calling for appt tonight. Mother is very upset and wants to get her in [place]. Mother not sure what is wrong. Mother just got home. Baby has red warm area on left side of face olayinka t looks blistered and swollen. Also looks like there is a bite rona on one of her knees. pt sitter left immediately. Baby does not seem sick. Afebrile. Breathing and swallowing normally. Appt scheduled at [facility] at 8:15pm. Mother notified and will leave now. [facility] noti fied. documented in this encounter Plan of Treatment Not on filedocumented as of this encounter Visit Diagnoses Not on filedocumented in this encounter Care Teams Construction Trades Contractor Relationship Specialty Start Date End Date Palmira Lim MD PCP - General 99 12/07/01 [address], [place] [address] documented as of this encounter
--- OUTSIDE RECORDS SUMMARY | 2021-12-08 10:31 | XMS_ITS | Encounter Summary ---
:1999 Author Organization [facility] Address [address] [place] [address] Care Team Providers Name Role Phone Palmira Lim MD Primary Care Provider Encounter Details Date Type Department Care Team Description 1999 Other Services INPATIENT SERVICES - Mendoza Borrego MD [address] [address] Social History Tobacco Use Types Packs/Day Years Used Date Smoking Tobacco: Never Assessed Sex Assigned at Date Recorded Female 09/14/2020 7:23 AM CDT documented as of this encounter Plan of Treatment Not on filedocumented as of this encounter Visit Diagnoses Diagnosis Single liveborn, born in hospital, [facility] without mention of delivery documented in this encounter Care Teams Solar Mechanical Engineer Relationship Specialty Start Date End Date Palmira Lim MD PCP - General 99 12/07/[address] [place], [place] [address] documented as of this encounter
--- OUTSIDE RECORDS SUMMARY | 2021-12-08 10:31 | XMS_ITS | Encounter Summary ---
:1999 Author Organization [facility] Address [address] [place] [address] Care Team Providers Name Role Phone Palmiar Lim MD Primary Care Provider Encounter Details Date Type Department Care Team Description 1999 Other Services INPATIENT SERVICES - Jazmine Bello RN PEDIAT [id number] [place] [address] Social History Tobacco Use Types Packs/Day Years Used Date Smoking Tobacco: Never Assessed Sex Assigned at Date Recorded Female 09/14/2020 7:23 AM CDT documented as of this encounter Plan of Treatment Not on filedocumented as of this encounter Visit Diagnoses Diagnosis Single liveborn, born in hospital, [facility] ere without mention of delivery documented in this encounter Care Teams Lathing Supervisor Relationship Specialty Start Date End Date Palmira Lim MD PCP - General 99 12/07/[address] [place], [place] [address] documented as of this encounter
--- OUTSIDE RECORDS SUMMARY | 2021-12-08 10:31 | XMS_ITS | Encounter Summary ---
:1999 Author Organization [facility] Address [address] [place] [address] Care Team Providers Name Role Phone Palmira Lim MD Primary Care Provider Encounter Details Date Type Department Care Team Description 1999 Orders Only Conrad Holloway MD Social History Tobacco Use Types Packs/Day Years Used Date Smoking Tobacco: Never Assessed Sex Assigned at Date Recorded Female 09/14/2020 7:23 AM CDT documented as of this encounter Plan of Treatment Not on filedocumented as of this encounter Visit Diagnoses Not on filedocumented in this encounter Care Teams Aircraft Manager Relationship Specialty Start Date End Date Palmira Lim MD PCP - General 99 12/07/[address] [place] [address] documented as of this encounter
--- OUTSIDE RECORDS SUMMARY | 2021-12-08 10:31 | XMS_ITS | Encounter Summary ---
:1999 Author Organization [facility] Address [address] [place] [address] Care Team Providers Name Role Phone Aislinn Arzate MD Primary Care Provider Reason for Visit Reason Comments LICE,HEAD Encounter Details Date Type Department Care Team Description 02/13/2002 Telephone Careline June Salazar RN LICE,HEAD [address] [place], [place] [address] [address] [facility] [phone] [place] [address] Social History Tobacco Use Types Packs/Day Years Used Date Smoking Tobacco: Never Assessed Sex Assigned at Date Recorded Female 09/14/2020 7:23 AM CDT documented as of this encounter Nursing Notes 02/13/2002 11:59 PM END USER CONSULTANT >> JUNE SALAZAR Sun Feb 13, 2002 10:52 AM >> COMPLETED ON ThuFeb 13, 2002 10:54 AM >> CALL RECEIVED. Contact: >> [phone] RECEIVED. Contact: TRIAGE REFERENCE: LICE - HEAD - PEDS CNG (c) 2000 ASSESSMENT: exposed to head lice, no symptoms home treatment: HOME TREATMENT: All family members & those sharing home except infants should be treated;, use N ON-conditioning shampoo prior to using NIX (ex: prell, baby shampoo);, towel dry after shampoo tillhair is barely damp (product is diluted by, putting on wet hair);, use a full 2 oz Nix per head or 1small bottle; use 3- 4 ozs if hair is, extremely long or thick. Rinse with cool water;, Use a time r to be sure NIX is on the head for afull 10 MINUTES. This is a, long time if you are actually crescencio ng it. Do not wash hair for 1-2 days, after treatment., additional rinses such as vinegar should NOT be used; this interferes with the, NIX remaining on the hair shaft;, comb out nits with a fine toot hed comb; repeat NIX 1 week later;, nits seen more than 1/2 inch from scalp are or empty egg ca ses,don't overuse pediculocides, severe scalp dermatitis has been caused by too, frequent treatment ., Huddy oil or mayonaise can be used instead of a pediculicide, Apply olive oil or mayonaise to the headat bedtime, (wear a shower cap so the oil does not come off), comb out nits with a fine toothe d comb or hand pick each nit; or the, individual strands of hair may be clipped with a manicure scis sors;, check all family members for 2 weeks after treatment and treat as needed;, Life cycle is 30 d ays and in 24 hr without a host., Live lice rebekah few days after tr. are to be considered reinfe station., Pts. need to understand they can get lice again and again, and treatment of lice, does not prevent reinfestation, all delgado, brushes and similar items must be disinfected by either washing w ith, soap and water or by heating in water of at least 130 degrees for 10 minutes;, blankets, sheets , pillow cases and clothing should be washed in hot water;, non-washable items can be put in dryer o n high heat for at least 20 minutes,, or place in an air tight bag or container for two weeks, or ex pose to extreme, cold for 48 hours (freezer, cold air or in snow); vacuum furniture and carpet., con siderations:, permethrin (Nix): otc, is 70%- 80% ovicidal, leaves an active residue on scalp, Plan:Family on [place]-requesting rx for coverage of cost of the medication. tongue binder paged @ 10:[address] Hastings for Nix Cream Rinse-use as directed, may refill x 1, called to [phone] documented in this encounter Plan of Treatment Not on filedocumented as of this encounter Visit Diagnoses Not on filedocumented in this encounter Care Teams Data Review Specialist Relationship Specialty Start Date End Date Aislinn Arzate MD PCP - General 12/08/01 10/20/04 [address] [place] [address] documented as of this encounter
--- OUTSIDE RECORDS SUMMARY | 2021-12-08 10:31 | XMS_ITS | Encounter Summary ---
:1999 Author Organization [facility] Address [address] [place] [address] Care Team Providers Name Role Phone Palmira Lim MD Primary Care Provider Reason for Visit Reason Comments ROUTINE HEALTH MAINTENANCE VIA INTERFACE Encounter Details Date Type Department Care Team Description 1999 Office Visit [facility] Palmira Lim ROUTINE CHILD HEALTH EXAM; [address] Eliezer MD VACCINE FOR DTP; [place] [address] VACCINE DIS COMBINATIONS NEC; [phone] [place], [place] VACCINE FOR IPV (POLIOMYELITIS); [address] VACCINE FOR STREP PNEUMONIAE Social History Tobacco Use Types Packs/Day Years Used Date Smoking Tobacco: Never Assessed Sex Assigned at Date Recorded Female 09/14/2020 7:23 AM CDT documented as of this encounter Plan of Treatment Not on filedocumented as of this encounter Visit Diagnoses Diagnosis Routine infant or child health check Need for DTP vaccine Need for prophylactic vaccination with c ombined yyjcqnwryr-cwkbdug-mryzaacmu (DTP) vaccine Need for prophylactic vaccination and in oculation against other combinations of diseases Need for prophylactic vaccination and in oculation against poliomyelitis Need for prophylactic vaccination agains t Streptococcus pneumoniae (pneumococcus) Need for prophylactic vaccination agains t streptococcus pneumoniae (pneumococcus) documented in this encounter Care Teams Stone Carriage Operator Relationship Specialty Start Date End Date Palmira Lim MD PCP - General 99 12/07/01 [address], [place] [address] documented as of this encounter
--- OUTSIDE RECORDS SUMMARY | 2021-12-08 10:31 | XMS_ITS | Encounter Summary ---
:1999 Author Organization [facility] Address [address] [place] [address] Care Team Providers Name Role Phone Palmira Lim MD Primary Care Provider Reason for Visit Reason Comments DEBORAH Encounter Details Date Type Department Care Team Description 1999 Telephone Aurora Raphael RN FUSSY [address] AFTER HOURS CARE - [place], [place] [address] CARELINE [phone] [place], [place] [id number] Social History Tobacco Use Types Packs/Day Years Used Date Smoking Tobacco: Never Assessed Sex Assigned at Date Recorded Female 09/14/2020 7:23 AM CDT documented as of this encounter Nursing Notes 1999 11:59 PM CDT >> AURORA DE LEON Mon 1999 3:38 PM >> CALL RECEIVED. Contact: [phone] Congested and has a cough. Has mattery eyes. Mom suspects an ear infection. [facility]-peds documented in this encounter Plan of Treatment Not on filedocumented as of this encounter Visit Diagnoses Not on filedocumented in this encounter Care Teams Filleter Relationship Specialty Start Date End Date Palmira Lim MD PCP - General 99 12/07/[address] [place] [address] documented as of this encounter
--- OUTSIDE RECORDS SUMMARY | 2021-12-08 10:31 | XMS_ITS | Encounter Summary ---
:1999 Author Organization [employer] Address [address] [place] [address] Care Team Providers Name Role Phone Palmira Lim MD Primary Care Provider Reason for Visit Reason Comments Exposed to Head Lice Encounter Details Date Type Department Care Team Description 07/17/2001 Telephone Careline Aurora Underwood, RN [address] [address] [facility] [place] [address] [place] [address] [phone] (Wo rk) Social History Tobacco Use Types Packs/Day Years Used Date Smoking Tobacco: Never Assessed Sex Assigned at Date Recorded Female 09/14/2020 7:23 AM CDT documented as of this encounter Nursing Notes 07/17/2001 11:59 PM CDT >> AURORA UNDERWOOD Sat July 17, 2001 9:22 PM >> COMPLETED ON Sat July 17, 2001 9:48 PM >> CALL RECEIVED. Contact: 2 sibling with head lice. None seen on pt. No itching. Needs doctor's order for medication, due t [employer] insurance. Hx: healthy Meds: none Allergies: NKA Consult with Dr. Valladares, recommends all family members treated (except infant), with Nix Cream Rinse, repeat in one week. Mom informed, rx called into [facility], . Home tx discussed per Peds/Lice CNG '. 9:47 PM Rx called in. documented in this encounter Plan of Treatment Not on filedocumented as of this encounter Visit Diagnoses Not on filedocumented in this encounter Care Teams Charge Gang Weigher Relationship Specialty Start Date End Date Palmira Lim MD PCP - General 99 12/07/01 [address], [place] [address] documented as of this encounter
--- OUTSIDE RECORDS SUMMARY | 2021-12-08 10:31 | XMS_ITS | Encounter Summary ---
:1999 Author Organization [employer] Address [address] [place] [address] Care Team Providers Name Role Phone Palmira Lim MD Primary Care Provider Encounter Details Date Type Department Care Team Description 03/30/2001 Office Visit [facility] Palmira iLm ROUTINE CHILD HEALTH EXAM; [address] Eliezer MD VACCINE FOR DTP; [place] [address] VACCINE DIS COMBINATIONS NEC; [phone] [place], [place] VACCINE GIDEON [id number]; [address] VACCINE FOR VARICELLA Social History Tobacco Use Types Packs/Day Years Used Date Smoking Tobacco: Never Assessed Sex Assigned at Date Recorded Female 09/14/2020 7:23 AM CDT documented as of this encounter Plan of Treatment Not on filedocumented as of this encounter Visit Diagnoses Diagnosis Routine or child health check Need for DTP vaccine Need for prophylactic vaccination with c ombined rhyafistvo-rpxrpvy-ebiinnvbk (DTP) vaccine Need for prophylactic vaccination and in oculation against other combinations of diseases Need for prophylactic vaccination with m giseit-jfxiq-yuagieo (MMR) vaccine Need for prophylactic vaccination and in oculation against varicella documented in this encounter Care Teams Lead Systems Engineer Relationship Specialty Start Date End Date Palmira Lim MD PCP - General 99 12/07/[address] [place] [address] documented as of this encounter
--- OUTSIDE RECORDS SUMMARY | 2021-12-08 10:31 | XMS_ITS | Encounter Summary ---
:1999 Author Organization [facility] Address [address] [place] [address] Care Team Providers Name Role Phone Palmira Lim MD Primary Care Provider Reason for Visit Reason Comments FUSSY VIA INTERFACE Encounter Details Date Type Department Care Team Description 1999 Office [facility] OTITIS MEDIA NOS [address] [place], [place] [id number] Social History Tobacco Use Types Packs/Day Years Used Date Smoking Tobacco: Never Assessed Sex Assigned at Date Recorded Female 09/14/2020 7:23 AM CDT documented as of this encounter Progress Notes Conrad Holloway - 1999 12:00 AM CDTS: Nabila is a 2 month-old. She presents with cough, some fussiness, lots of nasal drainage over the past two evenings. She has not been eating quite as well but no vomiting noted. O: Weight 9 pounds 12 ounces. Temperature 99.9, healthy looking 2 month-old. She has a lusty cry. Oropharynx pink. No teething noted. Nose is congested with lots of mucous. Left tympanic membrane is dull and red. Right tympanic membrane is shiny and no effusion seen. Lungs reveal no wheezes or rales. Her respirations are with her crying about 40 a minute. No cardiac murmurs are heard. Abdomen is soft and nontender. A: 2 month-old with upper respiratory infection symptoms, left otitis media. P: Amoxicillin 100 mg two times a day x ten days. recheck will be scheduled along with a two month physical examination in a couple of weeks. Return earlier as needed. Reviewed Tylenol doses for ear pain. IN SUMMARY: left otitis media upper respiratory infection cc: documented in this encounter Plan of Treatment Not on filedocumented as of this encounter Visit Diagnoses Diagnosis Unspecified otitis media documented in this encounter Care Teams Covering And Lining Supervisor Relationship Specialty Start Date End Date Palmira Lim MD PCP - General 99 12/07/[address] [place] [address] documented as of this encounter
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
--- OUTSIDE RECORDS SUMMARY | 2021-12-08 10:31 | XMS_ITS | Encounter Summary ---
:1999 Author Organization [facility] Address [address] [place] [address] Care Team Providers Name Role Phone Palmira Lim MD Primary Care Provider Encounter Details Date Type Department Care Team Description 05/12/2000 Orders Only [facility] [address] [place], [place] [phone] Social History Tobacco Use Types Packs/Day Years Used Date Smoking Tobacco: Never Assessed Sex Assigned at Date Recorded Female 09/14/2020 7:23 AM CDT documented as of this encounter Plan of Treatment Not on filedocumented as of this encounter Procedures Procedure Name Priority Date/Time Associated Diagnosis Comme nts COMPLETE BLOOD Waiting 05/12/2000 10:19 PM Result s for this COUNT-NO DIFF ADMISSION SPECIALIST procedure are in the results section. BODY FLUID CULTURE Routine 05/12/2000 10:19 PM Re sults for this ADMISSION SPECIALIST procedure are i n the results section. documented in this encounter Results COMMENTS (05/12/2000 10:19 PM ADMISSION SPECIALIST) [facility] Method Time Signature Comments Protime and PTT [facility] Cancelled by provider Specimen Anatomical Collection Method Collection Time Receive d Time (Source) Location / / Volume Laterality 05/12/2000 10:19 05/12/2000 PM ADMISSION SPECIALIST 10:20 PM ADMISSION SPECIALIST Full Range Spucc LAB_1 Performing Organization Address City/State/ZIP Code Phon e Number [facility] [phone] [facility] [address] [place] [address] HEMOGRAM/PLTS (05/12/2000 10:19 PM ADMISSION SPECIALIST) P athologist Signature WBC 15.3 5.0 - 19.5 [facility] k/ul RBC 4.55 3.0 - 5.4 [facility] M/ul Hemoglobin 12.5 10.0 - 18.0 [facility] g/dl HCT 36.5 31.0 - 55.0 [facility] % MCV 80.4 77 - 104 fl [facility] MCH 27.4 26 - 34 pg [facility] MCHC 34.2 32 - 36 % [facility] RDW 14.9 11.5 - 16.0 [facility] % Platelets 430 150 - 450 [facility] k/ul Specimen Anatomical Collection Method Collection Time Receive d Time (Source) Location / / Volume Laterality 05/12/2000 10:19 05/12/2000 PM ADMISSION SPECIALIST 10:20 PM ADMISSION SPECIALIST Full Range Spucc LAB_1 Performing Organization Address [facility] Phon e Number [facility] [phone] [address] documented in this encounter Visit Diagnoses Not on filedocumented in this encounter Care Teams Professor Of Geography Relationship Specialty Start Date End Date Palmira Lim MD PCP - General 05/08/06 [address] [place], [place] [address] documented as of this encounter
--- OUTSIDE RECORDS SUMMARY | 2021-12-08 10:31 | XMS_ITS | Encounter Summary ---
:1999 Author Organization [facility] Address [address] [place] [address] Care Team Providers Name Role Phone Palmira Lim MD Primary Care Provider Encounter Details Date Type Department Care Team Description 1999 Orders Only [facility] Palmira Lim MD [address] [place], [place] [address] [place], [place] [address] (Wo rk) Social History Tobacco Use Types Packs/Day Years Used Date Smoking Tobacco: Never Assessed Sex Assigned at Date Recorded Female 09/14/2020 7:23 AM CDT documented as of this encounter Plan of Treatment Not on filedocumented as of this encounter Procedures Procedure Name Priority Date/Time Associated Diagnosis Comme nts PHENYLKETONURIA Routine 1999 6:02 PM Result s for this CDT procedure are i n the results section. documented in this encounter Results PHENYLKETONURIA (1999 6:02 PM CDT) Component Value Ref Test Analysis Performed At [facility] Range Method Time Signature Phenylketonuria See Separate [facility] Report Specimen Anatomical Collection Method Collection Time Receive d Time (Source) Location / / Volume Laterality 1999 6:02 PM 07/05/200 0 6:03 CDT PM CDT Palmira Lim MD LAB_1 Performing Organization Address City/State/ZIP Code Phon e Number [facility] [phone] [address] documented in this encounter Visit Diagnoses Not on filedocumented in this encounter Care Teams Bradder Relationship Specialty Start Date End Date Palmira Lim MD PCP - General 05/08/[address] [place] [address] documented as of this encounter
--- OUTSIDE RECORDS SUMMARY | 2021-12-08 10:31 | XMS_ITS | Encounter Summary ---
:1999 Author Organization [employer] Address [address] [place] [address] Care Team Providers Name Role Phone Palmira Lim MD Primary Care Provider Encounter Details Date Type Department Care Team Description 1999 Correspondence None [facility], Provider consent to release Social History Tobacco Use Types Packs/Day Years Used Date Smoking Tobacco: Never Assessed Sex Assigned at Date Recorded Female 09/14/2020 7:23 AM CDT documented as of this encounter Progress Notes Dakota Velázquez, Provider - 2000 12:00 AM SHIFTMAN documented in this encounter Plan of Treatment Not on filedocumented as of this encounter Visit Diagnoses Not on filedocumented in this encounter Care Teams Curb Setter Helper Relationship Specialty Start Date End Date Palmira Lim MD PCP - General 05/08/[address] [place], [place] [address] documented as of this encounter
--- OUTSIDE RECORDS SUMMARY | 2021-12-08 10:31 | XMS_ITS | Encounter Summary ---
:2000 Author Organization [facility] Address [address] [place] [address] Care Team Providers Name Role Phone Aislinn Arzate MD Primary Care Provider Reason for Visit Reason Comments RUNNY NOSE Encounter Details Date Type Department Care Team Description 04/25/2002 Telephone Careline Esther Jones RN RUNNY NOSE [address] [place], [place] [address] [phone] [facility] [address] Social History Tobacco Use Types Packs/Day Years Used Date Smoking Tobacco: Never Assessed Sex Assigned at Date Recorded Female 09/14/2020 7:23 AM CDT documented as of this encounter Nursing Notes 04/25/2002 11:59 PM SOLID WASTE LANDFILL TECHNICIAN >> ESTHER JONES ThuApr 25, 2002 12:30 PM >> COMPLETED ON ThuApr 25, 2002 1:45 PM >> CALL RECEIVED. Contact: 8am call: [email or web address]; mom asks to bring pt and sibs to clinic this am; one yr old sib is the sickest; this pt has had a cold since 04/21; fever initially; no fever now; no cough; +runny nose remains; isup and about, playing; PLAN: observation advised for next couple days; monitor fever; must be seen if becoming feverish, coughing, vomiting, rash, not eating or drinking, etc.; mom is OK with plan; documented in this encounter Plan of Treatment Not on filedocumented as of this encounter Visit Diagnoses Not on filedocumented in this encounter Care Teams Finance Mgr Relationship Specialty Start Date End Date Aislinn Arzate MD PCP - General 12/08/01 10/20/04 [address] [place] [address] documented as of this encounter
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
--- OUTSIDE RECORDS SUMMARY | 2021-12-08 10:31 | XMS_ITS | Encounter Summary ---
:2000 Author Organization [facility] Address [address] [place] [address] Care Team Providers Name Role Phone Palmira Lim MD Primary Care Provider Encounter Details Date Type Department Care Team Description 06/29/2000 Office Visit [facility] Palmira Lim ROUTINE CHILD HEALTH EXAM; [address] Eliezer MD VACCINE FOR DTP; [place] [address] VACCINE FOR IPV (POLIOMYELITIS); [phone] [place], [place] VACCINE FOR STREP PNEUMONIAE [id number] Social History Tobacco Use Types Packs/Day Years Used Date Smoking Tobacco: Never Assessed Sex Assigned at Date Recorded Female 09/14/2020 7:23 AM CDT documented as of this encounter Plan of Treatment Not on filedocumented as of this encounter Visit Diagnoses Diagnosis Routine infant or child health check Need for DTP vaccine Need for prophylactic vaccination with c ombined kdpulpuidp-ptgaxah-yeapoadtg (DTP) vaccine Need for prophylactic vaccination and in oculation against poliomyelitis Need for prophylactic vaccination agains t Streptococcus pneumoniae (pneumococcus) Need for prophylactic vaccination agains t streptococcus pneumoniae (pneumococcus) documented in this encounter Care Teams Licensed Insurance Sales Agent Relationship Specialty Start Date End Date Palmira Lim MD PCP - General 99 12/07/01 [address] [place] [address] documented as of this encounter
--- OUTSIDE RECORDS SUMMARY | 2021-12-08 10:31 | XMS_ITS | Encounter Summary ---
:2000 Author Organization [employer] Address [address] [place] [address] Care Team Providers Name Role Phone Aislinn Arzate MD Primary Care Provider Reason for Visit Reason Comments RASH Encounter Details Date Type Department Care Team Description 12/28/2001 Office Visit [facility] Aislinn Arzate MD OTHER ATOPIC [address] [place]MATITIS ([place] [address] [place], [place] Dx) [phone] [id number] Social History Tobacco Use Types Packs/Day Years Used Date Smoking Tobacco: Never Assessed Sex Assigned at Date Recorded Female 09/14/2020 7:23 AM CDT documented as of this encounter Last Filed Vital Signs Vital Sign Reading Time Taken Comments Blood Pressure - - Pulse - - Temperature 37.4 ??C (99.3 ??F) 12/28/2001 9:20 AM NEWSCAST DIRECTOR Respiratory Rate - - Oxygen Saturation - - Inhaled Oxygen Concentration - - Weight 11.8 kg (26 lb) 12/28/2001 9:20 AM NEWSCAST DIRECTOR Height - - Body Mass Index - - documented in this encounter Progress Notes 12/28/2001 9:20 AM NEWSCAST DIRECTOR SUBJECTIVE: Itchy rash on legs and buttocks - worsening and extending to abdomen. Using Melaleuca ski n cleanser. No illness. OBJECTIVE: General: comfortable Skin: lower extremities and buttocks with 3 -7cm patches of fine lichenification and excoriations; abdomen dry with fine papules and superficial excoriations. ASSESSMENT: atopic dermatitis PLAN: moisturize frequently 2.5% HC to dry patches twi ce a day documented in this encounter Nursing Notes 12/28/2001 9:20 AM CST >> JOSÉ MONROE 12/28/2001 9:29 am Patient here for spots all over body per mom. Immunization History: DTaP 1999 02/04/2000 06/29/2000 03/30/2001 Hib/HBV 1999 02/04/2000 03/30/2001 IPV(poliomyelitis) 1999 02/04/2000 06/29/2000 MMR 03/30/2001 Pneumococcal, Peds 1999 02/04/2000 06/29/2000 Varicella 03/30/2001 Patient coverage: Use XV modifier SmartSet(s) documented in this encounter Plan of Treatment Not on filedocumented as of this encounter Visit Diagnoses Diagnosis Other atopic dermatitis and related cond itions - Primary documented in this encounter Care Teams Desk Pens Assembler Relationship Specialty Start Date End Date Aislinn Arzate MD PCP - General 12/08/01 10/20/04 [address] [place], [place] [id number] documented as of this encounter
--- OUTSIDE RECORDS SUMMARY | 2021-12-08 10:31 | XMS_ITS | Encounter Summary ---
:2000 Author Organization [facility] Address [address] [place] [address] Care Team Providers Name Role Phone Palmira Lim MD Primary Care Provider Reason for Visit Reason Comments ROUTINE HEALTH MAINTENANCE VIA INTERFACE Encounter Details Date Type Department Care Team Description 02/04/2000 Office Visit [facility] Palmira Lim ROUTINE CHILD HEALTH EXAM; [address] Eliezer MD OTHER ATOPIC DERMATITIS; [place] [address] VACCINE FOR DTP; [phone] [place], [place] VACCINE DIS COMBINATIONS NEC; [address] VACCINE FOR IPV (POLIOMYELITIS); [phone] VACCINE FOR STR EP PNEUMONIAE (Work) Social History Tobacco Use Types Packs/Day Years Used Date Smoking Tobacco: Never Assessed Sex Assigned at Date Recorded Female 09/14/2020 7:23 AM CDT documented as of this encounter Plan of Treatment Not on filedocumented as of this encounter Visit Diagnoses Diagnosis Routine infant or child health check Other atopic dermatitis and related cond itions Need for DTP vaccine Need for prophylactic vaccination with c ombined rkjglscqof-hnhhnkf-wjgmszchj (DTP) vaccine Need for prophylactic vaccination and in oculation against other combinations of diseases Need for prophylactic vaccination and in oculation against poliomyelitis Need for prophylactic vaccination agains t Streptococcus pneumoniae (pneumococcus) Need for prophylactic vaccination agains t streptococcus pneumoniae (pneumococcus) documented in this encounter Care Teams Endless Belt Finisher Relationship Specialty Start Date End Date Palmira Lim MD PCP - General 99 12/07/[address] [place] [address] documented as of this encounter
--- OUTSIDE RECORDS SUMMARY | 2021-12-08 10:31 | XMS_ITS | Encounter Summary ---
:2000 Author Organization [facility] Address [address] [place] [address] Care Team Providers Name Role Phone Palmira Lim MD Primary Care Provider Reason for Visit Reason Comments ROUTINE HEALTH MAINTENANCE VIA INTERFACE Encounter Details Date Type Department Care Team Description 1999 Office Visit [facility] Palmira Lim ROUTINE CHILD HEALTH EXAM; [address] Annia MD FAMILY CIRCUMSTANCE NOS; [place] [address] [place] [phone] [place], [place] [address] Social History Tobacco Use Types Packs/Day Years Used Date Smoking Tobacco: Never Assessed Sex Assigned at Date Recorded Female 09/14/2020 7:23 AM CDT documented as of this encounter Plan of Treatment Not on filedocumented as of this encounter Visit Diagnoses Diagnosis Routine infant or child health check Unspecified family circumstance Candidiasis of mouth documented in this encounter Care Teams Graphic Illustrator Relationship Specialty Start Date End Date Palmira Lim MD PCP - General 99 12/07/[address] [place], [place] [address] documented as of this encounter
[2021-12-08 10:42] LABS: Albumin* 5.5 g/dL (3.3-5.0); Chloride* 100 mmol/L (96-114)
[2021-12-08 10:43] LABS: Potassium* 5.2 mmol/L (3.6-5.1); Sodium* 137 mmol/L (135-149)
[2021-12-08 10:44] LABS: Creatinine* 0.8 mg/dL (0.5-1.5); Est. Creatinine Clearance* 91.25; Estimated Glomerular Filt Rate 107 ml/min; HCG Qualitative* Negative (Negative)
[2021-12-08 10:45] LABS: Alkaline Phosphatase* 133 U/L (40-150); Aspartate Amino Transferase* 27 U/L (12-35); Bilirubin Direct* 0.3 mg/dL (0.0-0.5); Bilirubin Total* 0.5 mg/dL (0.1-1.5); Blood Urea Nitrogen* 16 mg/dL (5-24); Lipase* 34 U/L (23-300); Total Protein* 8.9 g/dL (6.0-8.3)
[2021-12-08 10:46] LABS: Alanine Aminotransferase* 24 U/L (4-35); Magnesium* 2.1 mg/dL (1.5-2.6)
[2021-12-08 10:55] LABS: Carbon Dioxide* < 5 mmol/L (20-32)
[2021-12-08 10:56] LABS: C Reactive Protein* < 0.5 mg/dL (0.5-1.0)
[2021-12-08 10:57] LABS: Glucose* 629 mg/dL (60-115)
[2021-12-08 11:03] LABS: Oxygen Saturation ABG 98 % (92-100)
[2021-12-08] MEDS: INSULIN INF 100 UNIT/100 ML 100 UNIT/100 ML BAG 6.5 UNIT IVPB (11:26)
[2021-12-08] MEDS: METOCLOPRAMIDE HCL 10 MG in 0.9 % SODIUM CHLORIDE 100 ml 100 ML 306 MG IVPB (11:33)
[2021-12-08 11:36] LABS: SARS PCR* Negative SARS-CoV-2 (Negative)
[2021-12-08] MEDS: LACTATED RINGERS 1000 ML 1,000 ML IV (11:55)
[2021-12-08 12:21] LABS: Appearance Urine Clear (Clear); Bilirubin Urine Negative (Negative); Blood Urine Trace-lysed (Negative); Color Urine Yellow (Yellow); Glucose Urine 2+ (Negative); Ketones Urine 4+ (Negative); Leukocyte Esterase Urine Negative (Negative); Nitrite Urine Negative (Negative); Protein Urine 2+ (Negative); Specific Gravity Urine 1.025 (1.000-1.030); Urobilinogen Urine 0.2 (0.2-1.0)
[2021-12-08 12:28] LABS: Amphetamine Screen Urine Negative (Negative); Barbiturate Screen Urine Negative (Negative); Benzodiazepines Screen Urine Negative (Negative); Cocaine Screen Urine Negative (Negative); Methadone Screen Urine Negative (Negative); Methamphetamines Screen Urine Negative (Negative); Opiate Screen Urine Negative (Negative); Oxycodone Screen Urine Negative (Negative); Phencyclidine Screen Urine Negative (Negative); Tricyclic Antidepressant Urine Negative (Negative)
[2021-12-08 12:35] LABS: Cannabinoid Screen Urine POSITIVE (Negative)
--- NOTE | 2021-12-08 12:58 | W.PC.EDHO ---
Primary Language: Preferred Language: Orientation Status: [x] Alert & Oriented [] Slight Confusion [] Known Dx Dementia Transfers By: [x] Assist of 1 [] Assist of 2 [] Lift Active Medications Generic Name Dose Route Start Last Admin Trade Name Freq PRN Reason Stop Dose Admin Insulin Human (Reg)/Sodium Chloride 100 unit in 100 mls @ 0 mls/hr 12/08/21 10:45 12/08/21 12:21 Insulin Inf 100 Unit/100 Ml IVPB 9.5 mls/hr .Q0M NONI Infusion Protocol Per Protocol Discontinued Medications Generic Name Dose Route Start Last Admin Trade Name Freq PRN Reason Stop Dose Admin Diphenhydramine HCl 12.5 mg 12/08/21 10:14 12/08/21 10:28 Diphenhydramine 50 Mg/Ml Inj IVP 12/08/21 10:15 12.5 mg ONCE ONE Administration Sodium Chloride 1,000 mls @ 1,000 mls/hr 12/08/21 10:09 12/08/21 12:20 0.9 % Sodium Chloride 1000 Ml IV 12/08/21 11:08 Infused .Q1H ONE Infusion Metoclopramide HCl 10 mg/ 102 mls @ 306 mls/hr 12/08/21 10:13 12/08/21 11:33 Sodium Chloride IVPB 12/08/21 10:14 306 mls/hr ONCE ONE Administration Lactated Ringer's 1,000 mls @ 1,000 mls/hr 12/08/21 10:43 12/08/21 11:55 Lactated Ringers 1000 Ml IV 12/08/21 11:42 1,000 mls/hr .Q1H ONE Administration Insulin Human Regular 10 unit 12/08/21 10:09 12/08/21 10:28 Insulin Regular 100 Unit/Ml Inj IVP 12/08/21 10:10 10 unit ONCE ONE Administration Description of Symptoms ED Triage Present Problem Patient reports nausea and vomiting that started Description [address] home from work. Notes she hasn't been taking her Lantus, I just forget. Has been taking Novalog, Glucose for EMS 547. EMS administered 8mg zofran, 500ml NS. ED Triage Date of Onset of 12/08/21 Symptoms Female History Patient No: reports negative test last week Pain Pain Description [Throat] Burning Pain Intensity [Throat] 8 Pain Intensity 8 Pain Intensity 8 Pain Scale Used [Throat] Numeric (1 - 10) Pain Scale Used Numeric (1 - 10) Pain Scale Used Numeric (1 - 10) IV Insertion/Site Date of IV Line Insertion [ 12/08/21 Right Antecubital] Date of IV Line Insertion [ 12/08/21 Left Antecubital] Oxygen Administration Pulse Oximetry 100 Pulse Oximetry 100 Pulse Oximetry 100 Pulse Oximetry 100 Pulse Oximetry 98 Pulse Oximetry 98 Pulse Oximetry 99 Pulse Oximetry 99 Oxygen Delivery Method Room Air Oxygen Delivery Method Room Air Oxygen Delivery Method Room Air Fraction of Inspired Oxygen 0.21
[2021-12-08 13:03] LABS: Bacteria Urine Few; RBC Urine 0-2 (0-2); Squamous Epithelial Cell Urine Few (None-Few); WBC Urine 0-2 (0-5)
[2021-12-08 13:23] LABS: Free T4 Free Thyroxine* 0.75 ng/dL (0.70-1.85)
[2021-12-08] MEDS: LACTATED RINGERS 1000 ML 1,000 ML 200 ML IV (14:24)
--- NOTE | 2021-12-08 14:34 | P.IMHP_ITS ---
Hospitalist- H&P: HPI History of Present Illness Date Seen: 12/08/21 Chief complaint: DKA Narrative: ADMISSION HISTORY AND PHYSICAL - HOSPITALIST Chief Complaint: Vomiting about taking insulin HPI: This is a 21-year-old, type 1 diabetic, who presents with acute nausea and vomiting over the last 48 hours. She has not been compliant with her insulin therapy nor her levothyroxine. She was diagnosed in 2016. She had 1 since being diagnosed that resulted in a preemie with shoulder dystocia. She previously had a Dexcom but has not kept the batteries and appy updated. She has never had an insulin pump. She started vomiting 2 days ago and has had intermittent headaches, abdominal pain and waves of nausea. No fever. No recent drug use. Previous hospitalizations for DKA include summer which necessitated a transfer and admission here in [place], March 2018. Her last visit endocrinology was this summer. There were concerns regarding her compliance at that point. She was on Lantus 35 units at bedtime with carb counting NovoLog. I've updated the PFSH, medications and allergies in the [facility] tabs. INVESTIGATIONS: LABS/MICRO/ECG/IMAGING Arrival vital signs are stable. She is on room air. She is mildly tachycardic. Not hypotensive. Afebrile. Initial CBC reveals a leukocytosis of 22.9 Blood gas with a pH of 7.00 Potassium 5.2 Normal creatinine CO2 less than 5 Glucose 629 Lactate 2.0 Normal magnesium, normal LFTs, normal CRP TSH 61 Free T4 0.75 Blood culture x2 and urine culture collecting and submitted to the lab CXR ordered, portable on the floor ECG reviewed - NSR REVIEW OF SYSTEMS: 12-point ROS completed with patient and negative unless otherwise stated in HPI or below. PHYSICAL EXAM: CODE STATUS: CONSTITUTIONAL: Conversive, good historian. A/O. Knows setting and context. VITAL SIGNS: see record. HEENT: Normocephalic, atraumatic. PERRL, EOMI, conjunctivae pink, no scleral icterus. Ears and nose externally normal. Pharynx normal. NECK: No JVD. No carotid bruit, no thyromegaly, no adenopathy. CHEST: Clear to auscultation bilaterally HEART: S1 and S2 normal. No harsh murmurs. Edema MUSCULOSKELETAL: No gross joint deformity or swelling. NEURO: Cranial nerves intact. Grossly intact. No asymmetric findings. SKIN: No rashes, petechiae, concerning changes PSYCHIATRIC: Euthymic. ADMIT TO MEDSURG: CCU FLOOR CARE DVT: Lovenox GI: PO intake Time spent: 70 minutes examining patient, conferring with family and patient, care staff, developing care plan [facility] Medical History (Updated 12/08/21 @ 14:53 by Twila Mosquera MD) ADHD (attention deficit hyperactivity disorder) Adjustment disorder with depressed mood Diabetes mellitus, insulin dependent (IDDM), uncontrolled Hypothyroidism Intentional overdose of insulin Noncompliance Suicidal behavior Surgical History No significant past surgical history Social History Highest level of school completed/degree received: Associate degree: occupational, technical, vocational program Smoking Status: Current every day smoker Do you use any of these nicotine containing products: E-Cigarettes and Vaping Products Second hand tobacco smoke exposure: No How often do you have a drink containing alcohol: monthly or less Alcohol type: hard liquor Alcohol type details: mixed vodka How often do you have six or more drinks on one occasion: Never AUDIT-C Alcohol total score: 1 Non-prescribed substance use: marijuana (any form) Caffeine: No service: No Meds Home Medications and Allergies Home Medications Medication Instructions Recorded Confirmed Type insulin aspart U-100 100 unit/mL 1 sliding scale dose subcut TIDWM 11/21/21 12/08/21 History (3 mL) subcutaneous pen (Novolog Flexpen U-100 Insulin aspart) insulin glargine 100 unit/mL (3 15 - 34 unit subcut BID 11/21/21 12/08/21 History mL) subcutaneous pen (Lantus Solostar U-100 Insulin) levothyroxine 50 mcg tablet 50 mcg PO DAILY 11/21/21 12/08/21 History pen needle, diabetic 31 gauge x 11/21/21 12/08/21 History 1/4 (UltiCare Pen Needle) blood-glucose sensor (Dexcom G6 12/08/21 12/08/21 History Sensor device) blood-glucose transmitter (Dexcom 12/08/21 12/08/21 History G6 Transmitter device) Allergies Allergy/AdvReac Type Severity Reaction Status Date / Time shellfish derived Allergy Verified 12/08/21 09:24 Exam Const: Vital Signs, click to edit/add: Vital Signs - 24 hr 12/08/21 09:24 12/08/21 10:00 12/08/21 11:04 Temperature 98.2 F Pulse Rate Pulse Rate [Pulse Oximeter] 100 117 H Respiratory Rate 18 20 Blood Pressure Blood Pressure [Ri ght Arm] Blood Pressure [Ri ght Upper Arm] 132/84 132/71 Pulse Oximetry 99 99 Oxygen Delivery Me thod Room Air Room Air Room Air Fraction of Inspir ed Oxygen 0.21 12/08/21 10:37 12/08/21 10:43 12/08/21 11:00 Temperature Pulse Rate 121 H 118 H 107 H Pulse Rate [Pulse Oximeter] Respiratory Rate Blood Pressure 131/75 Blood Pressure [Ri ght Arm] Blood Pressure [Ri ght Upper Arm] Pulse Oximetry 98 98 100 Oxygen Delivery Me thod Fraction of Inspir ed Oxygen 12/08/21 11:01 12/08/21 11:30 12/08/21 11:31 Temperature Pulse Rate 101 H 96 99 Pulse Rate [Pulse Oximeter] Respiratory Rate Blood Pressure 128/76 106/64 Blood Pressure [Ri ght Arm] Blood Pressure [Ri ght Upper Arm] Pulse Oximetry 100 100 100 Oxygen Delivery Me thod Fraction of Inspir ed Oxygen 12/08/21 11:32 12/08/21 12:00 12/08/21 12:01 Temperature Pulse Rate 95 101 H 103 H Pulse Rate [Pulse Oximeter] Respiratory Rate Blood Pressure 111/79 Blood Pressure [Ri ght Arm] Blood Pressure [Ri ght Upper Arm] Pulse Oximetry 99 99 100 Oxygen Delivery Me thod Fraction of Inspir ed Oxygen 12/08/21 12:30 12/08/21 12:31 12/08/21 13:00 Temperature Pulse Rate 89 86 90 Pulse Rate [Pulse Oximeter] Respiratory Rate Blood Pressure 119/77 Blood Pressure [Ri ght Arm] Blood Pressure [Ri ght Upper Arm] Pulse Oximetry 100 100 100 Oxygen Delivery Me thod Fraction of Inspir ed Oxygen 12/08/21 13:01 12/08/21 13:30 12/08/21 13:32 Temperature Pulse Rate 95 101 H 103 H Pulse Rate [Pulse Oximeter] Respiratory Rate Blood Pressure 112/63 98/70 Blood Pressure [Ri ght Arm] Blood Pressure [Ri ght Upper Arm] Pulse Oximetry 100 100 100 Oxygen Delivery Me thod Fraction of Inspir ed Oxygen 12/08/21 14:01 12/08/21 14:01 12/08/21 14:04 Temperature 98.4 F Pulse Rate Pulse Rate [Pulse Oximeter] Respiratory Rate 20 Blood Pressure Blood Pressure [Ri ght Arm] 118/86 Blood Pressure [Ri ght Upper Arm] Pulse Oximetry 99 99 99 Oxygen Delivery Me thod Room Air Room Air Fraction of Inspir ed Oxygen 0.21 12/08/21 14:07 12/08/21 14:17 12/08/21 14:21 Temperature 98.4 F 98.4 F Pulse Rate Pulse Rate [Pulse Oximeter] Respiratory Rate 20 20 20 Blood Pressure Blood Pressure [Ri ght Arm] 118/86 118/86 Blood Pressure [Ri ght Upper Arm] Pulse Oximetry 99 99 99 Oxygen Delivery Me thod Room Air Room Air Room Air Fraction of Inspir ed Oxygen 0.21 0.21 0.21 12/08/21 14:21 12/08/21 14:02 Temperature Pulse Rate Pulse Rate [Pulse Oximeter] Respiratory Rate Blood Pressure Blood Pressure [Ri ght Arm] Blood Pressure [Ri ght Upper Arm] Pulse Oximetry 98 100 Oxygen Delivery Me thod Room Air Room Air Fraction of Inspir ed Oxygen Hospitalist - H&P: Result Labs Labs: Short CBC 12/08/21 Range/Units 09:40 WBC 22.90 H (4.50-11.00) K/uL Hgb 14.4 (12.0-16.0) gm/dL Hct 43.1 (33.0-51.0) % Plt Count 379 (140-440) K/uL BMP 12/08/21 09:40 Sodium 137 Potassium 5.2 H Chloride 100 Carbon Dioxide < 5 L* BUN 16 Creatinine 0.8 Glucose 629 H* Calcium 9.0 Liver Function 12/08/21 Range/Units 09:40 Total Bilirubin 0.5 (0.1-1.5) mg/dL Direct Bilirubin 0.3 (0.0-0.5) mg/dL AST 27 (12-35) U/L ALT 24 (4-35) U/L Alkaline Phosphatase 133 (40-150) U/L Albumin 5.5 H (3.3-5.0) g/dL Urine 12/08/21 Range/Units 12:10 Urine Color Yellow (Yellow) Urine Appearance Clear (Clear) Urine pH 5.0 (5.0-8.5) Ur Specific [place] 1.025 (1.000-1.030) Urine Protein 2+ A (Negative) Urine Glucose (UA) 2+ A (Negative) Assessment and Plan Assessment and plan (1) DKA (diabetic ketoacidosis): Problem comment: -noncompliance likely the cause. Getting a portable chest and urine and blood cultures. Significant leukocytosis is likely stress demargination -significant gap with severe acidosis, ICU status -basal insulin and insulin gtt ordered -fluid resuscitation - 2 L in the ED, 200 mL of LR hourly, D5 when blood sugar drops below 200 -Q 4 hour labs tracking pH, bicarb, potassium. Add back potassium before it is low -Q 1 blood glucose -strict I&Os, diabetic teaching Status: Acute (2) Diabetes mellitus, insulin dependent (IDDM), uncontrolled: Problem comment: -A1c pending -social Work to meet as well as nutrition to go over supplies access to care, establishing PCP, etc. Status: Acute (3) Noncompliance: Problem comment: -as above Status: Acute (4) Hypothyroidism: Problem comment: -sick thyroid syndrome with a TSH of 60+, normal T4, T3 pending. Restarting levothyroxine Status: Acute
[2021-12-08 14:42] LABS: Glucose, Point-of-Care* 213 mg/dl (60-115)
--- NOTE | 2021-12-08 14:42 | CRLHL7_ITS ---
For Patients: As a result of the Cures Act, medical imaging exams and procedure reports are released immediately into your electronic medical record. You may view this report before your referring provider. If you have questions, please contact your health care provider. INDICATION: Diabetic ketoacidosis TECHNIQUE: Chest 1 view Comparison: 09/27/2020 Findings: Cardiomediastinal silhouette is unremarkable. No focal lung consolidation, pleural effusion or pneumothorax. Bones are unremarkable. Impression: No acute cardiopulmonary abnormality. Dictated by Albert Santacruz MD @ 12/08/2021 3:50:26 PM (Electronically Signed)
[2021-12-08 14:49] LABS: HCO3 VBG 10 mmol/L (21-28); Lactate* 1.9 mmol/L (0.5-1.9); PCO2 VBG 29 mmHG (40-50); PO2 VBG 40.5 mmHG (25-47)
[2021-12-08 14:55] LABS: pH VBG 7.125 (7.32-7.43)
[2021-12-08 15:15] LABS: Chloride* 110 mmol/L (96-114); Sodium* 145 mmol/L (135-149)
[2021-12-08 15:16] LABS: Potassium* 4.7 mmol/L (3.6-5.1)
[2021-12-08 15:18] LABS: Blood Urea Nitrogen* 14 mg/dL (5-24); Creatinine* 0.7 mg/dL (0.5-1.5); Est. Creatinine Clearance* 104.28; Estimated Glomerular Filt Rate 125 ml/min
[2021-12-08 15:19] LABS: Calcium* 9.1 mg/dL (8.4-10.6); Glucose* 237 mg/dL (60-115)
[2021-12-08 15:29] LABS: Carbon Dioxide* 7 mmol/L (20-32)
[2021-12-08] MEDS: 5 % DEXTROSE IN LAC RINGER'S 1,000 ML 125 ML IV (15:29)
--- NOTE | 2021-12-08 15:31 | PC.NURSE ---
Critical Lab PH and CO2 received- Values given to .
[2021-12-08 15:42] LABS: Hemoglobin A1C* > 14.00 % (0-5.6)
[2021-12-08 16:51] LABS: HIV 1/2/P24 Combo Screen* Negative (Negative)
[2021-12-08 17:45] LABS: HCO3 VBG 14 mmol/L (21-28); Lactate* 0.9 mmol/L (0.5-1.9); PCO2 VBG 29 mmHG (40-50); PO2 VBG 63.7 mmHG (25-47); pH VBG 7.298 (7.32-7.43)
[2021-12-08 18:05] LABS: Chloride* 111 mmol/L (96-114)
[2021-12-08 18:06] LABS: Potassium* 4.5 mmol/L (3.6-5.1); Sodium* 139 mmol/L (135-149)
[2021-12-08 18:08] LABS: Creatinine* 0.6 mg/dL (0.5-1.5); Est. Creatinine Clearance* 121.66; Estimated Glomerular Filt Rate 130 ml/min
[2021-12-08 18:09] LABS: Blood Urea Nitrogen* 12 mg/dL (5-24); Calcium* 8.4 mg/dL (8.4-10.6); Carbon Dioxide* 12 mmol/L (20-32); Glucose* 132 mg/dL (60-115)
[2021-12-08] MEDS: 5 % DEX/0.9 SOD CHL+KCL 20 mEq 1,000 ML 150 ML IV (18:12)
[2021-12-08] MEDS: 5 % DEX/0.9 SOD CHL+KCL 20 mEq 1,000 ML 175 ML IV (18:37)
[2021-12-08] MEDS: ENOXAPARIN 40 MG/0.4 ML INJ SUBCUT (21:26)
[2021-12-08] MEDS: INSULIN INF 100 UNIT/100 ML 100 UNIT/100 ML BAG 10 UNIT IVPB (21:42)
[2021-12-08 21:43] LABS: HCO3 VBG 20 mmol/L (21-28); Lactate* 0.6 mmol/L (0.5-1.9); PCO2 VBG 35 mmHG (40-50); PO2 VBG 82.9 mmHG (25-47); pH VBG 7.359 (7.32-7.43)
[2021-12-08 22:01] LABS: Chloride* 111 mmol/L (96-114); Potassium* 3.8 mmol/L (3.6-5.1); Sodium* 137 mmol/L (135-149)
--- NOTE | 2021-12-08 22:02 | PC.NURSE ---
Shift Note: The pt has been pleasant and cooperative. She has been denying nausea or vomiting. The pt has been on Regular insulin drip ; see charting of Blood sugar and insulin drip dose readjustment ; Dr Seo has been updated about Blood sugar . The pt has been sleeping throughout the shift. She stated that she has been very tired. No sign of hypoglycemia noted. The pt ate 75% of her dinner; she has been tolerating it well. Tele has been showing NSR. The pt has been denying any distress throughout the shift. Up to BR independently.
[2021-12-08 22:04] LABS: Blood Urea Nitrogen* 11 mg/dL (5-24); Carbon Dioxide* 18 mmol/L (20-32); Creatinine* 0.5 mg/dL (0.5-1.5); Est. Creatinine Clearance* 145.99; Estimated Glomerular Filt Rate 136 ml/min; Glucose* 107 mg/dL (60-115)
[2021-12-09] VITALS (10 sets, daily range): BP systolic 100–114; BP diastolic 64–77; PULSE 74–89; RESP 16–18; TEMP 36.4–36.9; O2SAT 96–198
[2021-12-09] MEDS: 5 % DEX/0.9 SOD CHL+KCL 20 mEq 1,000 ML 200 ML IV ×3 (00:03→09:50)
--- NOTE | 2021-12-09 00:41 | PC.NURSE ---
verbal from Dr Seo, goal BG 150-200, when BG reaches 150 restart insulin drip at 3units/hr. if BG remains under 150 keep drip paused, continue hourly checks.
[2021-12-09 02:05] LABS: HCO3 VBG 18 mmol/L (21-28); Lactate* 0.6 mmol/L (0.5-1.9); PCO2 VBG 36 mmHG (40-50); PO2 VBG 61.4 mmHG (25-47); pH VBG 7.299 (7.32-7.43)
[2021-12-09] MEDS: BENZOCAINE/MENTHOL 1 EACH LOZENGE MUCOUS MEM (02:13)
[2021-12-09 02:23] LABS: Chloride* 110 mmol/L (96-114); Sodium* 137 mmol/L (135-149)
[2021-12-09 02:26] LABS: Blood Urea Nitrogen* 10 mg/dL (5-24); Carbon Dioxide* 16 mmol/L (20-32); Creatinine* 0.5 mg/dL (0.5-1.5); Est. Creatinine Clearance* 145.99; Estimated Glomerular Filt Rate 136 ml/min
[2021-12-09 02:27] LABS: Calcium* 7.7 mg/dL (8.4-10.6); Glucose* 151 mg/dL (60-115)
--- NOTE | 2021-12-09 02:44 | PC.NURSE ---
Dr Faye Evangelista hospitalist contacted about VBG results 7.299, no changed in orders.
--- NOTE | 2021-12-09 05:33 | PC.NURSE ---
patient alert/oriented. no reported nausea, blood glucose as charted. patient appears to have slept well overnight. cooperate with cares.
[2021-12-09] MEDS: LEVOTHYROXINE 50 MCG TABLET PO (06:28)
[2021-12-09 06:47] LABS: HCO3 VBG 19 mmol/L (21-28); Lactate* 0.4 mmol/L (0.5-1.9); PCO2 VBG 35 mmHG (40-50); PO2 VBG 90.7 mmHG (25-47); pH VBG 7.328 (7.32-7.43)
[2021-12-09 07:11] LABS: Chloride* 113 mmol/L (96-114); Sodium* 137 mmol/L (135-149)
[2021-12-09 07:12] LABS: Potassium* 3.4 mmol/L (3.6-5.1)
[2021-12-09 07:14] LABS: Creatinine* 0.5 mg/dL (0.5-1.5); Est. Creatinine Clearance* 145.99; Estimated Glomerular Filt Rate 136 ml/min
[2021-12-09 07:15] LABS: Blood Urea Nitrogen* 9 mg/dL (5-24); Calcium* 7.3 mg/dL (8.4-10.6); Carbon Dioxide* 18 mmol/L (20-32); Glucose* 97 mg/dL (60-115)
[2021-12-09 07:58] LABS: Basophils Absolute Auto 0.02 K/uL (0.00-0.30); Basophils Percent Auto 0.2 % (0.0-3.0); Eosinophils Absolute Auto 0.22 K/uL (0.00-0.50); Eosinophils Percent Auto 2.5 % (0.0-7.0); Hematocrit 33.6 % (33.0-51.0); Hemoglobin* 11.4 gm/dL (12.0-16.0); Immature Granulocytes Abs Auto 0.01 K/uL (0.00-0.30); Lymphocytes Absolute Auto 3.42 K/uL (0.90-2.90); Lymphocytes Percent Auto 38.1 % (20-44); Mean Corpuscular HGB Conc 34 gm/dL (32-36); Mean Corpuscular Hemoglobin 29 pg (26-34); Mean Corpuscular Volume 84 fL (80-100); Monocytes Percent Auto 6.4 % (0.0-11.0); Neutrophils Absolute Auto 4.73 K/uL (1.7-7.0); Neutrophils Percent Auto 52.7 % (42.0-72.0); Platelet Count* 309 K/uL (140-440); RDW Coefficient of Variation % 13.5 % (11.5-15.5); Red Blood Count 3.98 m/uL (4.00-5.20); White Blood Count* 8.97 K/uL (4.50-11.00)
[2021-12-09 08:02] LABS: Slide Review Reflex No
[2021-12-09] MEDS: POTASSIUM CHLORIDE 10 MEQ/100 ML PIGGYBACK 100 MEQ IVPB ×2 (08:35→09:36)
[2021-12-09] MEDS: 0.9 % SODIUM CH + KCL 20 mEq/L 1,000 ML 125 ML IV ×2 (11:00→18:59)
[2021-12-09 11:20] LABS: HCO3 VBG 16 mmol/L (21-28); Lactate* 0.6 mmol/L (0.5-1.9); PCO2 VBG 30 mmHG (40-50); PO2 VBG 61.3 mmHG (25-47); pH VBG 7.347 (7.32-7.43)
[2021-12-09 11:36] LABS: Chloride* 108 mmol/L (96-114); Sodium* 134 mmol/L (135-149)
[2021-12-09 11:37] LABS: Potassium* 4.1 mmol/L (3.6-5.1)
[2021-12-09 11:39] LABS: Carbon Dioxide* 15 mmol/L (20-32); Creatinine* 0.6 mg/dL (0.5-1.5); Est. Creatinine Clearance* 121.66; Estimated Glomerular Filt Rate 130 ml/min
[2021-12-09 11:40] LABS: Blood Urea Nitrogen* 7 mg/dL (5-24); Calcium* 7.5 mg/dL (8.4-10.6); Glucose* 309 mg/dL (60-115)
--- NOTE | 2021-12-09 12:41 | PM.IMPN1 ---
Progress Note: A&P Assessment and plan (1) DKA (diabetic ketoacidosis): Problem details: -noncompliance is etiology -gap is closed, acidosis resolved -insulin drip discontinued, basal, correctional, nutritional insulin ordered -D5 discontinued -normal saline with potassium -likely discharge tomorrow. Status: Acute (2) Hypothyroidism: Problem details: -sick thyroid syndrome with a TSH of 60+, normal T4, T3 pending. Restarting levothyroxine Status: Acute (3) Diabetes mellitus, insulin dependent (IDDM), uncontrolled: Problem details: -A1c greater than 14 -social Work to meet as well as nutrition to go over supplies access to care, establishing PCP, etc. Status: Acute (4) Noncompliance: Problem details: -as above Status: Acute Subjective Date Seen: 12/09/21 Interval history: Daily Progress Note - Hospital Medicine Day #: 2 CCU status through this morning, now floor status CC: DKA, type 1 diabetic OVERNIGHT UPDATES FROM STAFF & MED, LAB, IMAGING UPDATES Nabila did well overnight. She is hungry this morning. She feels much better. She has had no nausea or vomiting. She ordered a breakfast tray. A1c greater than 14 Her leukocytosis has resolved Mild anemia likely hemodilutional Last blood gas showed a normal pH. Sodium has drifted down a little bit to 134, potassium is normal Blood sugars have been 97 - 309 Positive THC in her urine Negative HIV Urine shows no growth. Blood cultures are negative thus far. Vitals reviewed and stable. No fever. On room air. Review of Systems: See subjective Cardiac: No new chest pain/pressure/palpitations. Respiratory: no new dyspnea. GI: No abdominal bloating Objective: Much more alert. Smiling. Vitals: see above Lungs: Clear. Cardiac: S1S2. Disposition/Potential discharge - Likely to return to previous living situation. Total time is 35 minutes with greater than 50% spent in counseling and coordination of care. Exam Const: Vital Signs, click to edit/add: Vital Signs - 24 hr 12/08/21 13:00 12/08/21 13:01 12/08/21 13:30 Temperature Pulse Rate 90 95 101 H Pulse Rate [Left P ulse Oximeter] Respiratory Rate Blood Pressure 112/63 Blood Pressure [Ri ght Arm] Pulse Oximetry 100 100 100 Oxygen Delivery Me thod Fraction of Inspir ed Oxygen 12/08/21 13:32 12/08/21 14:01 12/08/21 14:01 Temperature Pulse Rate 103 H Pulse Rate [Left P ulse Oximeter] Respiratory Rate Blood Pressure 98/70 Blood Pressure [Ri ght Arm] Pulse Oximetry 100 99 99 Oxygen Delivery Me thod Room Air Fraction of Inspir ed Oxygen 12/08/21 14:04 12/08/21 14:07 12/08/21 14:17 Temperature 98.4 F 98.4 F Pulse Rate Pulse Rate [Left P ulse Oximeter] Respiratory Rate 20 20 20 Blood Pressure Blood Pressure [Ri ght Arm] 118/86 118/86 Pulse Oximetry 99 99 99 Oxygen Delivery Me thod Room Air Room Air Room Air Fraction of Inspir ed Oxygen 0.21 0.21 0.21 12/08/21 14:21 12/08/21 14:21 12/08/21 14:02 Temperature 98.4 F Pulse Rate Pulse Rate [Left P ulse Oximeter] Respiratory Rate 20 Blood Pressure Blood Pressure [Ri ght Arm] 118/86 Pulse Oximetry 99 98 100 Oxygen Delivery Me thod Room Air Room Air Room Air Fraction of Inspir ed Oxygen 0.21 12/08/21 14:54 12/08/21 15:20 12/08/21 19:00 Temperature 98.2 F Pulse Rate 92 Pulse Rate [Left P ulse Oximeter] 95 100 Respiratory Rate 20 20 Blood Pressure Blood Pressure [Ri ght Arm] 117/68 Pulse Oximetry 100 Oxygen Delivery Me thod Room Air Fraction of Inspir ed Oxygen 12/08/21 19:00 12/08/21 21:18 12/08/21 22:05 Temperature Pulse Rate 85 Pulse Rate [Left P ulse Oximeter] 100 Respiratory Rate 20 20 Blood Pressure Blood Pressure [Ri ght Arm] Pulse Oximetry 100 Oxygen Delivery Me thod Room Air Fraction of Inspir ed Oxygen 12/08/21 23:00 12/08/21 23:00 12/09/21 00:51 Temperature 98.4 F Pulse Rate 75 Pulse Rate [Left P ulse Oximeter] 75 75 Respiratory Rate 18 20 Blood Pressure Blood Pressure [Ri ght Arm] 106/56 L Pulse Oximetry 95 Oxygen Delivery Me thod Room Air Fraction of Inspir ed Oxygen 12/09/21 02:14 12/09/21 06:00 12/09/21 07:00 Temperature 98.4 F 98.4 F Pulse Rate Pulse Rate [Left P ulse Oximeter] 75 79 Respiratory Rate 18 16 Blood Pressure Blood Pressure [Ri ght Arm] 103/77 106/64 Pulse Oximetry 100 98 Oxygen Delivery Me thod Room Air Room Air Room Air Fraction of Inspir ed Oxygen 12/09/21 08:00 12/09/21 11:00 Temperature 97.6 F Pulse Rate 74 Pulse Rate [Left P ulse Oximeter] 89 Respiratory Rate 16 Blood Pressure Blood Pressure [Ri ght Arm] 101/67 Pulse Oximetry 99 Oxygen Delivery Me thod Room Air Fraction of Inspir ed Oxygen Labs Labs: Laboratory Results - last 24 hr 12/08/21 12/08/21 12/08/21 09:40 09:40 09:40 WBC RBC Hgb Hct MCV MCH MCHC RDW Coeff of Shelia Plt Count Neut % (Auto) Lymph % (Auto) [place] % (Auto) Eos % (Auto) Baso % (Auto) Neut # (Auto) Lymph # (Auto) [place] # (Auto) Eos # (Auto) Baso # (Auto) Abs Immat Gran (auto) VBG pH VBG pCO2 VBG pO2 VBG HCO3 Sodium Potassium Chloride Carbon Dioxide BUN Creatinine Estimated Creat Clear Estimated GFR Glucose Hemoglobin A1c > 14.00 H Lactate Venous Lactic Acid (Serial Order) Calcium Free T4 0.75 Urine Color Urine Appearance Urine pH Ur Specific [place] Urine Protein Urine Glucose (UA) Urine Ketones Urine Blood Urine Nitrite Urine Bilirubin Urine Urobilinogen Ur Leukocyte Esterase Urine RBC Urine WBC Ur Squamous Epith Cells Urine Bacteria HIV 1&2 Ab/P24 Ag 4thGn POC Glucose 12/08/21 12/08/21 12/08/21 09:40 12:10 13:50 WBC RBC Hgb Hct MCV MCH MCHC RDW Coeff of [place] Plt Count Neut % (Auto) Lymph % (Auto) [place] % (Auto) Eos % (Auto) Baso % (Auto) Neut # (Auto) Lymph # (Auto) [place] # (Auto) Eos # (Auto) Baso # (Auto) Abs Immat Gran (auto) VBG pH VBG pCO2 VBG pO2 VBG HCO3 Sodium Potassium Chloride Carbon Dioxide BUN Creatinine Estimated Creat Clear Estimated GFR Glucose Hemoglobin A1c Lactate Venous Lactic Acid (Serial Order) Calcium Free T4 Urine Color Yellow Urine Appearance Clear Urine pH 5.0 Ur Specific [place] 1.025 Urine Protein 2+ A Urine Glucose (UA) 2+ A Urine Ketones 4+ A Urine Blood Trace-lysed A Urine Nitrite Negative Urine Bilirubin Negative Urine Urobilinogen 0.2 Ur Leukocyte Esterase Negative Urine RBC 0-2 Urine WBC 0-2 Ur Squamous Epith Cells Few Urine Bacteria Few A HIV 1&2 Ab/P24 Ag 4thGn Negative POC Glucose 213 H 12/08/21 12/08/21 12/08/21 14:44 14:44 17:42 WBC RBC Hgb Hct MCV MCH MCHC RDW Coeff of [place] Plt Count Neut % (Auto) Lymph % (Auto) [place] % (Auto) Eos % (Auto) Baso % (Auto) Neut # (Auto) Lymph # (Auto) [place] # (Auto) Eos # (Auto) Baso # (Auto) Abs Immat Gran (auto) VBG pH 7.125 L* VBG pCO2 29 L VBG pO2 40.5 VBG HCO3 10 L Sodium 145 139 Potassium 4.7 4.5 Chloride 110 111 Carbon Dioxide 7 L* 12 L BUN 14 12 Creatinine 0.7 0.6 Estimated Creat Clear 104.28 121.66 Estimated GFR 125 130 Glucose 237 H 132 H Hemoglobin A1c Lactate 1.9 Venous Lactic Acid (Serial Order) Calcium 9.1 8.4 Free T4 Urine Color Urine Appearance Urine pH Ur Specific [place] Urine Protein Urine Glucose (UA) Urine Ketones Urine Blood Urine Nitrite Urine Bilirubin Urine Urobilinogen Ur Leukocyte Esterase Urine RBC Urine WBC Ur Squamous Epith Cells Urine Bacteria HIV 1&2 Ab/P24 Ag 4thGn POC Glucose 12/08/21 12/08/21 12/08/21 17:42 21:39 21:39 WBC RBC Hgb Hct MCV MCH MCHC RDW Coeff of [place] Plt Count Neut % (Auto) Lymph % (Auto) [place] % (Auto) Eos % (Auto) Baso % (Auto) Neut # (Auto) Lymph # (Auto) [place] # (Auto) Eos # (Auto) Baso # (Auto) Abs Immat Gran (auto) VBG pH 7.298 L 7.359 VBG pCO2 29 L 35 L VBG pO2 63.7 H 82.9 H VBG HCO3 14 L 20 L Sodium 137 Potassium 3.8 Chloride 111 Carbon Dioxide 18 L BUN 11 Creatinine 0.5 Estimated Creat Clear 145.99 Estimated GFR 136 Glucose 107 Hemoglobin A1c Lactate 0.9 0.6 Venous Lactic Acid (Serial Order) Calcium 8.0 L Free T4 Urine Color Urine Appearance Urine pH Ur Specific [place] Urine Protein Urine Glucose (UA) Urine Ketones Urine Blood Urine Nitrite Urine Bilirubin Urine Urobilinogen Ur Leukocyte Esterase Urine RBC Urine WBC Ur Squamous Epith Cells Urine Bacteria HIV 1&2 Ab/P24 Ag 4thGn POC Glucose 12/09/21 12/09/21 12/09/21 02:00 02:00 06:25 WBC RBC Hgb Hct MCV MCH MCHC RDW Coeff of [place] Plt Count Neut % (Auto) Lymph % (Auto) [place] % (Auto) Eos % (Auto) Baso % (Auto) Neut # (Auto) Lymph # (Auto) [place] # (Auto) Eos # (Auto) Baso # (Auto) Abs Immat Gran (auto) VBG pH 7.299 L VBG pCO2 36 L VBG pO2 61.4 H VBG HCO3 18 L Sodium 137 137 Potassium 4.0 3.4 L Chloride 110 113 Carbon Dioxide 16 L 18 L BUN 10 9 Creatinine 0.5 0.5 Estimated Creat Clear 145.99 145.99 Estimated GFR 136 136 Glucose 151 H 97 Hemoglobin A1c Lactate 0.6 Venous Lactic Acid (Serial Order) Calcium 7.7 L 7.3 L Free T4 Urine Color Urine Appearance Urine pH Ur Specific [place] Urine Protein Urine Glucose (UA) Urine Ketones Urine Blood Urine Nitrite Urine Bilirubin Urine Urobilinogen Ur Leukocyte Esterase Urine RBC Urine WBC Ur Squamous Epith Cells Urine Bacteria HIV 1&2 Ab/P24 Ag 4thGn POC Glucose 12/09/21 12/09/21 12/09/21 06:25 06:25 11:14 WBC 8.97 RBC 3.98 L Hgb 11.4 L Hct 33.6 MCV 84 MCH 29 MCHC 34 RDW Coeff of [place] 13.5 Plt Count 309 Neut % (Auto) 52.7 Lymph % (Auto) 38.1 [place] % (Auto) 6.4 Eos % (Auto) 2.5 Baso % (Auto) 0.2 Neut # (Auto) 4.73 Lymph # (Auto) 3.42 H [place] # (Auto) 0.60 Eos # (Auto) 0.22 Baso # (Auto) 0.02 Abs Immat Gran (auto) 0.01 VBG pH 7.328 VBG pCO2 35 L VBG pO2 90.7 H VBG HCO3 19 L Sodium 134 L Potassium 4.1 Chloride 108 Carbon Dioxide 15 L BUN 7 Creatinine 0.6 Estimated Creat Clear 121.66 Estimated GFR 130 Glucose 309 H Hemoglobin A1c Lactate 0.4 L Venous Lactic Acid (Serial Order) Calcium 7.5 L Free T4 Urine Color Urine Appearance Urine pH Ur Specific [place] Urine Protein Urine Glucose (UA) Urine Ketones Urine Blood Urine Nitrite Urine Bilirubin Urine Urobilinogen Ur Leukocyte Esterase Urine RBC Urine WBC Ur Squamous Epith Cells Urine Bacteria HIV 1&2 Ab/P24 Ag 4thGn POC Glucose 12/09/21 11:14 WBC RBC Hgb Hct MCV MCH MCHC RDW Coeff of [place] Plt Count Neut % (Auto) Lymph % (Auto) [place] % (Auto) Eos % (Auto) Baso % (Auto) Neut # (Auto) Lymph # (Auto) [place] # (Auto) Eos # (Auto) Baso # (Auto) Abs Immat Gran (auto) VBG pH 7.347 VBG pCO2 30 L VBG pO2 61.3 H VBG HCO3 16 L Sodium Potassium Chloride Carbon Dioxide BUN Creatinine Estimated Creat Clear Estimated GFR Glucose Hemoglobin A1c Lactate 0.6 Venous Lactic Acid (Serial Order) Calcium Free T4 Urine Color Urine Appearance Urine pH Ur Specific [place] Urine Protein Urine Glucose (UA) Urine Ketones Urine Blood Urine Nitrite Urine Bilirubin Urine Urobilinogen Ur Leukocyte Esterase Urine RBC Urine WBC Ur Squamous Epith Cells Urine Bacteria HIV 1&2 Ab/P24 Ag 4thGn POC Glucose
--- NOTE | 2021-12-09 16:02 | NUTR.NU ---
MADDISONN with MD consult for Diabetic Teaching related to DKA. MADDISONN visited with patient whom reported she is interested in diet education, however she had family currently visiting. She requested diet education be done at a later time so she is able to visit with family. MADDISONN will educate patient at a later date before discharge per patient request.
--- NOTE | 2021-12-09 19:23 | PC.NURSE ---
SHIFT REPORT: PATIENT PLEASANT AND COOPERATIVE, ALERT AND ORIENTED, UP AD FRANCHESCA WITH STEADY GAIT, MD UPDATED ON BG AND STARTED ON SLIDING SCALE INSULIN AND INSULIN WITH MEALS, PER MD BG Q2H TILL DINNER THAN OKAY TO MOVE TO Q4H, PATIENT STATED SHE WAS HAVING SOME VAGINAL ITCHING AND CHUNKY DISCHARGE DECLINES PAINFUL OR BURNING SENSATION WHEN URINATED, MD UPDATED NO CHANGES NOTED AT THIS TIME, TELE SHOWING NSR, FAMILY PRESENT THIS AFTERNOON.
[2021-12-09] MEDS: ENOXAPARIN 40 MG/0.4 ML INJ SUBCUT (21:16)
[2021-12-10] VITALS: BP 113/72; PULSE 82; RESP 16; TEMP 36.4; O2SAT 98
[2021-12-10 03:00] VITALS: BP 125/75; PULSE 79; RESP 16; TEMP 36.4; O2SAT 100
--- NOTE | 2021-12-10 05:19 | PC.NURSE ---
SHIFT NOTE -: Pt A&O. Uneventful night, VSS on RA. Denies pain, SOB, and CP. Up independently in room and tolerating well. 0200 blood sugar was 334, insulin given per eMAR.
[2021-12-10 06:00] VITALS: RESP 18; O2SAT 100
[2021-12-10 06:47] LABS: HCO3 VBG 24 mmol/L (21-28); Ionized Calcium* 1.16 mmol/L (1.11-1.30); PCO2 VBG 42 mmHG (40-50); PO2 VBG 36.4 mmHG (25-47); pH VBG 7.352 (7.32-7.43)
[2021-12-10 07:00] VITALS: BP 112/74; PULSE 68; RESP 16; TEMP 36.5; O2SAT 98
[2021-12-10 07:02] LABS: Basophils Absolute Auto 0.02 K/uL (0.00-0.30); Basophils Percent Auto 0.3 % (0.0-3.0); Eosinophils Absolute Auto 0.19 K/uL (0.00-0.50); Eosinophils Percent Auto 2.8 % (0.0-7.0); Hematocrit 34.8 % (33.0-51.0); Hemoglobin* 11.8 gm/dL (12.0-16.0); Immature Granulocytes Abs Auto 0.02 K/uL (0.00-0.30); Lymphocytes Absolute Auto 2.47 K/uL (0.90-2.90); Lymphocytes Percent Auto 35.8 % (20-44); Mean Corpuscular HGB Conc 34 gm/dL (32-36); Mean Corpuscular Hemoglobin 29 pg (26-34); Mean Corpuscular Volume 86 fL (80-100); Monocytes Percent Auto 6.5 % (0.0-11.0); Neutrophils Absolute Auto 3.74 K/uL (1.7-7.0); Neutrophils Percent Auto 54.3 % (42.0-72.0); Platelet Count* 254 K/uL (140-440); RDW Coefficient of Variation % 13.2 % (11.5-15.5); Red Blood Count 4.07 m/uL (4.00-5.20); White Blood Count* 6.89 K/uL (4.50-11.00)
[2021-12-10 07:10] LABS: Slide Review Reflex No
[2021-12-10 07:14] LABS: Albumin* 3.8 g/dL (3.3-5.0); Chloride* 99 mmol/L (96-114)
[2021-12-10 07:15] LABS: Potassium* 4.9 mmol/L (3.6-5.1); Sodium* 132 mmol/L (135-149)
[2021-12-10 07:17] LABS: Alanine Aminotransferase* 15 U/L (4-35); Alkaline Phosphatase* 70 U/L (40-150); Aspartate Amino Transferase* 19 U/L (12-35); Bilirubin Total* 0.5 mg/dL (0.1-1.5); Blood Urea Nitrogen* 9 mg/dL (5-24); Carbon Dioxide* 21 mmol/L (20-32); Creatinine* 0.5 mg/dL (0.5-1.5); Est. Creatinine Clearance* 145.99; Estimated Glomerular Filt Rate 136 ml/min; Total Protein* 6.2 g/dL (6.0-8.3)
[2021-12-10] MEDS: LEVOTHYROXINE 50 MCG TABLET PO (07:17)
[2021-12-10 07:18] LABS: Calcium* 8.6 mg/dL (8.4-10.6); Magnesium* 1.7 mg/dL (1.5-2.6)
[2021-12-10 07:28] LABS: Glucose* 442 mg/dL (60-115)
--- NOTE | 2021-12-10 07:50 | PM.IMPN1 ---
Subjective Date Seen: 12/10/21 Interval history: Daily Progress Note - Hospital Medicine Day #: 3 CC: DKA, hyperglycemia, vaginal yeast infection, noncompliance, THC use OVERNIGHT UPDATES FROM STAFF & MED, LAB, IMAGING UPDATES Bedside blood glucose: 442, 334, 282, 290, 266 Hemoglobin stable PH stable Electrolytes normal. Renal function normal. Hyperglycemia. Urine culture negative, blood cultures negative to date Review of Systems: See subjective Cardiac: No new chest pain/pressure/palpitations. Respiratory: no new dyspnea. GI: No abdominal bloating Objective: Vitals: see above Lungs: Clear. Cardiac: S1S2. Disposition/Potential discharge - Likely to return to previous living situation. Total time is 35 minutes with greater than 50% spent in counseling and coordination of care. Exam Const: Vital Signs, click to edit/add: Vital Signs - 24 hr 12/09/21 08:00 12/09/21 11:00 12/09/21 14:00 Temperature 97.6 F Pulse Rate 74 Pulse Rate [Left P ulse Oximeter] 89 Respiratory Rate 16 Blood Pressure [Ri ght Arm] 101/67 Pulse Oximetry 99 198 H Oxygen Delivery Me thod Room Air 12/09/21 14:00 12/09/21 15:00 12/09/21 15:59 Temperature 97.6 F Pulse Rate 85 Pulse Rate [Left P ulse Oximeter] 78 Respiratory Rate 16 Blood Pressure [Ri ght Arm] 100/67 Pulse Oximetry 98 96 Oxygen Delivery Me thod Room Air Room Air 12/09/21 20:41 12/09/21 22:00 12/09/21 23:00 Temperature 98.4 F Pulse Rate Pulse Rate [Left P ulse Oximeter] 80 82 Respiratory Rate 18 16 Blood Pressure [Ri ght Arm] 114/71 Pulse Oximetry 96 Oxygen Delivery Me thod Room Air 12/10/21 00:00 12/10/21 03:00 12/10/21 06:00 Temperature 97.5 F L 97.6 F Pulse Rate Pulse Rate [Left P ulse Oximeter] 82 79 Respiratory Rate 16 16 18 Blood Pressure [Ri ght Arm] 113/72 125/75 Pulse Oximetry 98 100 100 Oxygen Delivery Me thod Room Air Room Air Room Air Labs Labs: Laboratory Results - last 24 hr 12/09/21 12/09/21 12/09/21 06:25 11:14 11:14 WBC 8.97 RBC 3.98 L Hgb 11.4 L Hct 33.6 MCV 84 MCH 29 MCHC 34 RDW Coeff of Shelia 13.5 Plt Count 309 Neut % (Auto) 52.7 Lymph % (Auto) 38.1 [place] % (Auto) 6.4 Eos % (Auto) 2.5 Baso % (Auto) 0.2 Neut # (Auto) 4.73 Lymph # (Auto) 3.42 H [place] # (Auto) 0.60 Eos # (Auto) 0.22 Baso # (Auto) 0.02 Abs Immat Gran (auto) 0.01 VBG pH 7.347 VBG pCO2 30 L VBG pO2 61.3 H VBG HCO3 16 L Sodium 134 L Potassium 4.1 Chloride 108 Carbon Dioxide 15 L BUN 7 Creatinine 0.6 Estimated Creat Clear 121.66 Estimated GFR 130 Glucose 309 H Lactate 0.6 Calcium 7.5 L Ionized Calcium Grady Magnesium Total Bilirubin AST ALT Alkaline Phosphatase Total Protein Albumin TSH 12/10/21 12/10/21 12/10/21 06:25 06:25 06:25 WBC 6.89 RBC 4.07 Hgb 11.8 L Hct 34.8 MCV 86 MCH 29 MCHC 34 RDW Coeff of Shelia 13.2 Plt Count 254 Neut % (Auto) 54.3 Lymph % (Auto) 35.8 [place] % (Auto) 6.5 Eos % (Auto) 2.8 Baso % (Auto) 0.3 Neut # (Auto) 3.74 Lymph # (Auto) 2.47 [place] # (Auto) 0.40 Eos # (Auto) 0.19 Baso # (Auto) 0.02 Abs Immat Gran (auto) 0.02 VBG pH 7.352 VBG pCO2 42 VBG pO2 36.4 VBG HCO3 24 Sodium 132 L Potassium 4.9 Chloride 99 Carbon Dioxide 21 BUN 9 Creatinine 0.5 Estimated Creat Clear 145.99 Estimated GFR 136 Glucose 442 H* Lactate Calcium 8.6 Ionized Calcium Grady 1.16 Magnesium 1.7 Total Bilirubin 0.5 AST 19 ALT 15 Alkaline Phosphatase 70 Total Protein 6.2 Albumin 3.8 TSH 12/10/21 06:25 WBC RBC Hgb Hct MCV MCH MCHC RDW Coeff of Shelia Plt Count Neut % (Auto) Lymph % (Auto) [place] % (Auto) Eos % (Auto) Baso % (Auto) Neut # (Auto) Lymph # (Auto) [place] # (Auto) Eos # (Auto) Baso # (Auto) Abs Immat Gran (auto) VBG pH VBG pCO2 VBG pO2 VBG HCO3 Sodium Potassium Chloride Carbon Dioxide BUN Creatinine Estimated Creat Clear Estimated GFR Glucose Lactate Calcium Ionized Calcium Grady Magnesium Total Bilirubin AST ALT Alkaline Phosphatase Total Protein Albumin TSH 61.100 H
[2021-12-10] MEDS: FLUCONAZOLE 100 MG TABLET 200 MG PO (09:14)
--- NOTE | 2021-12-10 09:16 | NUTR.NU ---
RDN with MD consult for Diabetic teaching. Patient admitted for DKA, has a history of non-compliance with medication management regarding her type 1 diabetes. Patient reports in the past she has been able to manage her diabetes well, getting her A1C level down. She also likes to dance and workout. She has seen dietitians in the past, however she was interested in diet education again. Diabetic diet education provided. Discussed basics of carbohydrate counting including sources of carbohydrates, serving sizes, and label reading. Discussed using the plate method for carbohydrate-controlled, balanced meals that include ? plate non-starchy vegetables, ? plate protein, and 3-4 (45-60 grams carbohydrates) servings of carbohydrates per meal (fruit, whole grains, legumes, milk, yogurt) and 1-2 choices per snack. Handouts provided to support discussion. RDN contact information provided and encouraged patient to call with questions. RDN to follow up as needed.
[2021-12-10] MEDS: CLOTRIMAZOLE (VAG) cream 1 APPLIC VAGINAL (09:18)
[2021-12-10 11:00] VITALS: BP 114/77; PULSE 93; RESP 16; TEMP 36.5; O2SAT 98
[2021-12-10 13:15] VITALS: BP 98/70; PULSE 85; RESP 16; TEMP 36.5
--- NOTE | 2021-12-10 13:15 | PC.NURSE ---
SHIFT REPORT: PATIENT ALERT AND ORIENTED, PLEASANT AND COOPERATIVE, UP IND IN ROOM STEADY GAIT, BG 442 THIS MORNING INSULIN GIVEN BG 307 PRIOR LUNCH, DECLINING PAIN, PATIENT DISCHARGED TO HOME ACCOMPANIED BY HER MOTHER, PATIENT VERBALIZED UNDERSTANDING OF DISCHARGE INFORMATION AND HAD NO FURTHER QUESTIONS AT THIS TIME, IV REMOVED, ALL BELONGINGS SENT WITH PATIENT, LEFT AROUND 1300.
--- NOTE | 2021-12-10 14:56 | PM.DS1 ---
DS: Providers Provider Date Seen: 12/10/21 Date of admission: 12/09/21 09:16 Primary care physician: Not a Local Provider Admitting Clinician: Twila Mosquera MD Consults: 12/08/21 13:51 Consult to Nutrition [CONS] Routine Comment: Reason for consult:: Diabetic Teaching Attending Physician on discharge: Twila Mosquera MD Date of Discharge: 12/10/21 DS: Diagnosis Discharge Diagnosis (1) Hypothyroidism: Status: Acute Problem details: -sick thyroid syndrome with a TSH of 60+, normal T4, T3 pending. Restarting levothyroxine (2) Noncompliance: Status: Acute Problem details: -as above (3) Diabetes mellitus, insulin dependent (IDDM), uncontrolled: Status: Acute Problem details: -A1c greater than 14 -social Work to meet as well as nutrition to go over supplies access to care, establishing PCP, etc. (4) DKA (diabetic ketoacidosis): Status: Acute Problem details: -noncompliance is etiology -gap is closed, acidosis resolved -insulin drip discontinued, basal, correctional, nutritional insulin ordered -D5 discontinued -normal saline with potassium -likely discharge tomorrow. DS: Summary Hospital Course Hospital Course: HOSPITALIST DISCHARGE SUMMARY ATTENDING PHYSICIAN: Twila Mosquera MD FINAL DIAGNOSIS: Type 1 diabetes DKA Hypothyroidism Noncompliance Poor insight HOSPITAL FOLLOWUP ISSUES: 1. Flash reader vs CGM for better blood glucose awareness and management 2. Establish care with new PCP REFERRALS WHILE ADMITTED: RD, social work REFERRALS AFTER DISCHARGE: New PCP establishment BRIEF HOSPITAL COURSE: 21-year-old who presents in DKA was admitted for 3 days for management of severe DKA related to noncompliance of insulin therapy for her type 1 diabetes. She responded quickly to insulin infusion and her metabolic acidosis resolved. We restarted her oral levothyroxine. We established her insulin needs and managed her hyperglycemia. Our registered dietitian met with her for education. She was tolerating a regular diet and feeling much improved. VITAL SIGN, MEDICATION, LAB/MICRO, IMAGING SUMMARY (full details available in account tabs or by records request) A1C >14 pH and CO2 normal at discharge DISCHARGE MEDICATIONS: Lantus 25 units BID Novolog 8 units TIDWM Synthyroid 50mcg daily REVIEW OF SYSTEMS No new chest pain or dyspnea Pain controlled No voiding difficulties Tolerating diet challenge PHYSICAL EXAM: CONSTITUTIONAL: smiling, happy today. bright. VITAL SIGNS: see record. HEENT: Normocephalic, atraumatic. PERRL, EOMI, conjunctivae pink, no scleral icterus. Ears and nose externally normal. Pharynx normal. NECK: No JVD. No carotid bruit, no thyromegaly, no adenopathy. CHEST: Clear to auscultation bilaterally. HEART: S1 and S2 normal. Edema ABDOMEN: Soft, nontender. Normal bowel sounds. MUSCULOSKELETAL: No gross joint deformity or swelling. NEURO: Cranial nerves intact. Grossly intact. No asymmetric findings. SKIN: No rashes, petechiae, concerning changes PSYCHIATRIC: Mood euthymic. DISPOSITION: Home with famil Time spent on discharge 37 minutes. Status at Discharge Functional status at discharge: independent ambulation Overall status at discharge: patient is back to baseline Time Spent with Patient Time attestation: Total time spent providing and/or coordinating discharge services: Time spent: Greater than 30 minutes Exam Const: Vital Signs, click to edit/add: Vital Signs - 24 hr 12/09/21 15:00 12/09/21 15:59 12/09/21 20:41 Temperature 97.6 F 98.4 F Pulse Rate 85 Pulse Rate [Left P ulse Oximeter] 78 80 Respiratory Rate 16 18 Blood Pressure Blood Pressure [Ri ght Arm] 100/67 114/71 Pulse Oximetry 96 96 Oxygen Delivery Az thod Room Air 12/09/21 22:00 12/09/21 23:00 12/10/21 00:00 Temperature 97.5 F L Pulse Rate Pulse Rate [Left P ulse Oximeter] 82 82 Respiratory Rate 16 16 Blood Pressure Blood Pressure [Ri ght Arm] 113/72 Pulse Oximetry 98 [facility] 12/10/21 03:00 12/10/21 06:00 12/10/21 07:00 Temperature 97.6 F 97.7 F Pulse Rate Pulse Rate [Left P ulse Oximeter] 79 68 Respiratory Rate 16 18 16 Blood Pressure Blood Pressure [Ri ght Arm] 125/75 112/74 Pulse Oximetry 100 100 98 [facility] Room Air Room Air 12/10/21 11:00 12/10/21 13:15 Temperature 97.7 F 97.7 F Pulse Rate 85 Pulse Rate [Left P ulse Oximeter] 93 Respiratory Rate 16 16 Blood Pressure 98/70 Blood Pressure [Ri ght Arm] 114/77 Pulse Oximetry 98 Oxygen Delivery Me thod Room Air DS: Data Data Completed and Pending Labs on day of discharge: Labs from last 24 hours 12/10/21 12/10/21 12/10/21 06:25 06:25 06:25 WBC 6.89 RBC 4.07 Hgb 11.8 L Hct 34.8 MCV 86 MCH 29 MCHC 34 RDW Coeff of Shelia 13.2 Plt Count 254 Neut % (Auto) 54.3 Lymph % (Auto) 35.8 [place] % (Auto) 6.5 Eos % (Auto) 2.8 Baso % (Auto) 0.3 Neut # (Auto) 3.74 Lymph # (Auto) 2.47 [place] # (Auto) 0.40 Eos # (Auto) 0.19 Baso # (Auto) 0.02 Abs Immat Gran (auto) 0.02 VBG pH VBG pCO2 VBG pO2 VBG HCO3 Sodium 132 L Potassium 4.9 Chloride 99 Carbon Dioxide 21 BUN 9 Creatinine 0.5 Estimated Creat Clear 145.99 Estimated GFR 136 Glucose 442 H* Calcium 8.6 Ionized Calcium Grady Magnesium 1.7 Total Bilirubin 0.5 AST 19 ALT 15 Alkaline Phosphatase 70 Total Protein 6.2 Albumin 3.8 TSH 61.100 H 12/10/21 06:25 WBC RBC Hgb Hct MCV MCH MCHC RDW Coeff of Shelia Plt Count Neut % (Auto) Lymph % (Auto) [place] % (Auto) Eos % (Auto) Baso % (Auto) Neut # (Auto) Lymph # (Auto) [place] # (Auto) Eos # (Auto) Baso # (Auto) Abs Immat Gran (auto) VBG pH 7.352 VBG pCO2 42 VBG pO2 36.4 VBG HCO3 24 Sodium Potassium Chloride Carbon Dioxide BUN Creatinine Estimated Creat Clear Estimated GFR Glucose Calcium Ionized Calcium Grady 1.16 Magnesium Total Bilirubin AST ALT Alkaline Phosphatase Total Protein Albumin TSH Preliminary micro results at discharge 12/08/21 10:40 Blood Culture - Preliminary Blood NO GROWTH AFTER 48 HOURS 12/08/21 10:34 Blood Culture - Preliminary Blood NO GROWTH AFTER 48 HOURS Discharge Plan Discharge Disposition: Home, Self-Care Date of Admission: 12/09/21 09:16 Attending Provider on Discharge: Twila Mosquera Primary Care Provider: Provider,Not a Local Condition: Critical Anticipated Discharge Date/Time: 12/10/21 11:17 Discharge Medications: New insulin aspart U-100 [Novolog U-100 Insulin aspart] 100 unit/mL solution 8 unit subcut TID Qty: 10 2RF (DME) FreeStyle Meghan 14 Day [place] Misc See Rx Instructions .Route Qty: 1 8RF Rx Instructions: As directed (DME) FreeStyle Meghan 3 Sensor Kit See Rx Instructions .Route Qty: 1 7RF Rx Instructions: As directed levothyroxine 50 mcg Tablet 50 mcg PO DAILY@0700 Qty: 90 0RF (DME) pen needle, diabetic 32 gauge x 5/32 needle See Rx Instructions .Route Qty: 100 8RF Rx Instructions: As directed Continued levothyroxine 50 mcg tablet 50 mcg PO DAILY Label Comments: TAKE ONE TABLET BY MOUTH ONE TIME DAILY (DME) pen needle, diabetic [UltiCare Pen Needle] 31 gauge x 1/4 needle MISCELLANEOUS Label Comments: USE TO INJECT INSULIN 5 TIMES DAILY Changed insulin glargine [Lantus Solostar U-100 Insulin] 100 unit/mL (3 mL) insulin pen 25 unit SUBCUT BID Qty: 15 5RF Label Comments: INJECT 15 UNITS EVERY MORNING AND INJECT 34 UNITS EVERY EVENING. INDICATIONS: DIABETES MELLITUS Discontinued insulin aspart U-100 [Novolog Flexpen U-100 Insulin] 100 unit/mL (3 mL) insulin pen 1 sliding scale dose SUBCUT TIDWM Label Comments: USE DIRECTED PER SLIDING SCALE. TOTAL DAILY DOSAGE 60-100 UNITS PER DAY. emtricitabine-tenofovir (TDF) [Truvada] 200-300 mg tablet 1 tab PO DAILY Qty: 30 2RF Tivicay 50 mg tablet 50 mg PO DAILY Qty: 30 2RF (DME) Dexcom G6 Sensor Device MISCELLANEOUS Label Comments: PLACE 1 SENSOR ON DRY, CLEAN , HAIRLESS SKIN EVERY 10 DAYS (DME) Dexcom G6 Transmitter Device MISCELLANEOUS Label Comments: REPLACE EVERY 90 DAYS DIRECTED Discharge Orders: Discharge Order (Routine); Ordered 12/10/21 Ordered By: Twila Mosquera Patient Education: Levothyroxine (By mouth), Insulin Aspart, Recombinant (By injection) (NovoLOG, NovoLOG FlexPen), Insulin Aspart Protamine/Insulin Aspart (By injection), Diabetes Insipidus (DC), Diabetic Ketoacidosis (DC) Additional Instructions: Use long acting (Lantus) 25 units twice a day Use novolog 6-8 units with meals; inject once eating. check blood sugars 4x a day -Take your synthroid daily Activity Level: Activity as Tolerated Discharge Diet: Diabetic Follow Up Appointments: Provider,Not a Local [Primary Care Provider] - 12/17/21 (find a pcp in [facility] (women; younger preferred) for establishment of care; f/u hospitalization) Tammi Lyon MD [Staff Physician] - 12/17/21 12:45 pm Forms: [employer] Info Instructions
[2021-12-11 05:12] LABS: Free T3 1.3 pg/mL (2.5-4.3)
== END 2021-12-10 13:00 | disposition home or self-care (01) | DRG 420 ==
LOC: ED 10:46 → MEDSURG 12-09 10:47
PROVIDERS: Admitting Provider Family Medicine; Emergency Provider Family Medicine; Visit Provider Family Medicine
DX: E10.10 Type 1 diabetes mellitus with ketoacidosis without coma (principal); T38.3X6A Underdosing of insulin and oral hypoglycemic [antidiabetic] drugs, initial encounter; T38.1X6A Underdosing of thyroid hormones and substitutes, initial encounter; Z79.4 Long term (current) use of insulin; E03.9 Hypothyroidism, unspecified; Z91.14 Patient's other noncompliance with medication regimen; F43.21 Adjustment disorder with depressed mood; F90.1 Attention-deficit hyperactivity disorder, predominantly hyperactive type; Z91.51 Personal history of suicidal behavior; F17.290 Nicotine dependence, other tobacco product, uncomplicated; F12.90 Cannabis use, unspecified, uncomplicated; E07.81 Sick-euthyroid syndrome; D72.829 Elevated white blood cell count, unspecified
CPT/HCPCS: 36415; 36600; 71045; 80048; 80053; 80076; 80306; 81001; 82330; 82803; 82947; 82962; 83036; 83605; 83690; 83735; 84439; 84443; 84481; 84703; 85025; 86140; 86703; 87040; 87086; 87635; 93005; 99284; 99285; 99291; A9270; J1200; J1650; J2765; J3480; J3590; J7030; J7120